=== PATIENT | female | born 1950 | race Caucasian/White ===

== ENCOUNTER 2022-10-27 23:22 | Inpatient (IN) ==
[~2022-10-27 23:22] MED LIST: RAPID SEQUENCE INDUCTION BAG ONE
[2022-10-27 23:58] LABS: Basophils # (auto) 0.08 K/uL (0-0.2); Basophils % (auto) 0.5 %; Eosinophils # (auto) 0.35 K/uL (0-0.50); Eosinophils % (auto) 2.3 %; Hematocrit (blood only) 40.5 % (37.0-47.0); Hemoglobin 13.4 g/dl (12.0-16.0); Immature Granulocytes % (auto) 0.6 %; Lymphocytes # (auto) 3.18 K/uL (1.2-3.4); Lymphocytes % (auto) 20.5 %; Mean Corpuscular Hemoglobin 29.1 pg (25.0-34.0); Mean Corpuscular Hgb Conc 33.1 g/dL (32.0-36.0); Mean Platelet Volume 10.5 fL (9.4-12.4); Monocytes # (auto) 1.07 K/uL (0.11-0.59); Monocytes % (auto) 6.9 %; Neutrophils # (auto) 10.76 K/uL (1.40-6.50); Neutrophils % (auto) 69.2 %; Platelet Count 315 K/uL (130-400); RDW Coefficient of Variation 15.9 % (11.5-14.5); White Blood Count 15.54 K/ul (4.8-10.8)
[2022-10-27 23:59] LABS: iSTAT Creatinine 0.6 mg/dl (0.6-1.3); iSTAT Hemoglobin 14.3 g/dl (12.0-16.0); iSTAT Ionized Calcium 1.15 mmol/l (1.12-1.32)
[2022-10-28] LABS: iSTAT Arterial Blood Gas HCO3 22 meg/L (19-24); iSTAT Arterial Blood Gas pCO2 33 mmHg (35-46); iSTAT Arterial Blood Gas pH 7.42 (7.35-7.45); iSTAT Arterial Blood Gas pO2 62 mmHg (80-95); iSTAT Carbon Dioxide 22 mmol/L (24-31); iSTAT Hematocrit 40 % (37-47); iSTAT Hemoglobin 13.6 g/dl (12.0-16.0); iSTAT Potassium 3.7 mmol/L (3.3-5.0); iSTAT Sodium 138 mmol/L (135-144)
--- NOTE | 2022-10-28 00:01 | Emergency Department Note ---
Impression & Plan Respiratory failure, IPF (idiopathic pulmonary fibrosis), Elevated lactic acid level ED Provider Note Provider: Cameron Liu MD DATE OF SERVICE: 10/27/2022 CHIEF COMPLAINT: Shortness of breath HISTORY OF PRESENT ILLNESS: Patient is a 72-year-old female with a significant history of idiopathic pulmonary fibrosis maintained on 4 L of oxygen at home, allergies, diabetes presenting here today via ambulance from home. Lives at home with symptoms well recently. Denies sick contacts. Evidently has been having some increasing respiratory issues over the last several days. No fevers reported however. Bit of a cough. Nonproductive. Feeling more short of breath. Worsened this evening. EMS reports patient was satting in the 50s with cyanosis in the extremities upon their arrival and seemed fatigued. Patient did not tolerate CPAP initiated by them. With oxygen mask over the patient's mentation improved and she states her breathing is feeling somewhat better. Received a DuoNeb/nebulizers as well as 125 mg Solu-Medrol in route. Patient denies any chest pain. Denies leg swelling. PAST MEDICAL HISTORY: As noted above MEDICATIONS: Reviewed with her home medications SOCIAL HISTORY: lives at home, non-smoker PHYSICAL EXAM: GENERAL: alert and oriented on stretcher appears slightly tachypneic Head: normocephalic and atraumatic EYES: No injection, discharge or icterus. NECK: Trachea midline ENT: Mucous membranes pink and moist. LUNGS: Airway patent. Some tachypnea and mild work of breathing. Lung sounds generally clear/coarse HEART: Regular rate and rhythm. No chest wall tenderness ABDOMEN: Soft and non-tender, without guarding or rebound. SKIN: Acyanotic, warm, dry, without rashes EXTREMITIES: Without swelling, tenderness or deformity NEUROLOGICAL: No focal deficits. No aphasia. No facial droop or slurred speech. EK bpm sinus tachycardia. Some respiratory artifact. No clear acute ST segment elevation or depression with QTc 405. CONTINUOUS CARDIAC MONITORING: was ordered and showed a heart rate of 90s-120s bpm in sinus tachycardia to normal sinus rhythm 1 view chest x-ray per my interpretation: Evidence of some diffuse airspace opacities seemingly more scarring than pneumonia. No evidence of significant pulmonary effusions or free air under the diaphragm. No significant cardiomegaly. Patient's laboratory studies and imaging reviewed. Differential includes Reactive airway disease, pneumonia, pneumothorax, COPD, CHF, infections, cardiac ischemia, pulmonary embolism, musculoskeletal, gastrointestinal, as well as other pathologies. IMPRESSION/MEDICAL DECISION MAKING: Patient with some mild cyanosis to the fingertips and distal toes but mentating appropriate upon arrival. Initial pulse ox in the extremities was in the 60s. Forehead probe placed and switched to 4 L nasal cannula oxygen with improvement. Again did not tolerate CPAP in route. Symptoms are improving some. Is still tachycardic. Chest x-ray with evidence of fibrosis and scarring we will complete a CTA to exclude PE and for further evaluation of lungs given the underlying IPF. No evidence of significant fluid overload. Denies chest pain. Low suspicion for acute ACS. No other significant infectious symptoms and lower suspicion for pneumonia blood cultures and lactate as well as procalcitonin sent. On 12 L nasal cannula oxygen the patient is having adequate oxygenation with a radial ABG returning with a normal pH of 7.4 and an O2 of 62. [id number] creat without evidence of any significant renal dysfunction. Blood work does return with an elevated lactate likely from malperfusion or hypoxia. Again no evidence of hypercarbia. Mild leukocytosis of 15.5 likely more reactive given her lack of other infectious symptoms. Not anemic. No evidence of hepatitis or troponin elevation. No BNP elevation. Procalcitonin pending. Negative respiratory viral panel/[employer]. Magnesium mildly low given some supplementation. Tolerating 12 L NC and fairly stable here. Given CT angiogram findings of significant pulmonary fibrosis making differentiation of underlying back arterial infection difficult, covered empirically with cefepime. Discussed with the patient she is going to plan to stay for further care here at the hospital. Later procalcitonin does return undetectably low and this lowers my suspicion for significant bacterial infection. We will avoid significant fluid hydration as a prevent fluid overload worsening things. DIAGNOSIS: Acute on chronic hypoxic respiratory failure, idiopathic pulmonary fibrosis DISPOSITION: Hospitalist will evaluate Patient was agreeable with this plan. Critical Care I have personally spent 36 minutes of critical care time in the direct manag ement of this patient. This includes bedside care, interpretation of diagnostic studies, and testing, discussion with consultants, patient, and family members, and other required patient management activities. These 36 minutes is in excess of all separately billable procedures. Past Med/Surg History Social History Smoking Status: Never smoker Feels Safe at Home: Yes Allergies Allergies Allergy/AdvReac Type Severity Reaction Status Date / Time lisinopril Allergy Cough Verified 10/28/22 00:10 Home Meds Home Medications Medication Instructions Recorded Confirmed atorvastatin 10 mg tablet 10 mg PO QAM 10/28/22 10/28/22 fluticasone 500 mcg-salmeterol 50 1 ea inhalation [facility]HS 10/28/22 10/28/22 mcg/dose blistr powdr for inhalation (Advair Diskus) losartan 50 mg tablet 100 mg PO QAM 10/28/22 10/28/22 metformin 500 mg tablet,extended 2,000 mg PO QPM 10/28/22 10/28/22 release 24 hr metoprolol succinate 25 mg 25 mg PO QAM 10/28/22 10/28/22 tablet,extended release 24 hr omeprazole 20 mg capsule,delayed 20 mg PO QAM 10/28/22 10/28/22 release pirfenidone 801 mg tablet 801 mg PO TID 10/28/22 10/28/22 Results & Data (ED) Vital Signs Vital Signs - 24 hr 10/27/22 23:43 10/27/22 23:31 10/27/22 23:48 Temperature Temperature Source Pulse Rate 129 H Pulse Rate [Forehead] Pulse Rate from SpO2 Sensor Pulse Rhythm [Forehead] Pulse Strength [Forehead] Respiratory Rate Respiratory Effort / Characteristics Respiratory Depth Blood Pressure Blood Pressure [Right Arm] Blood Pressure Mean Blood Pressure Mean [Right Arm] Blood Pressure Position [Right Arm] Pulse Oximetry 66 L Oxygen Delivery Method Nasal Cannula Room Air Oxygen Flow Rate 0 Sepsis Recent Fever Within 48 Hours Sepsis New/Unexplained Change in Mental Status Sepsis Action Taken by Nursing Oxygen Flow Rate - Titration 12 Pulse Oximetry Post Tiitration 98 10/27/22 23:45 10/27/22 23:51 10/27/22 23:53 Temperature 37.3 C 37.6 C H Temperature Source Oral Oral Pulse Rate 125 H 121 H Pulse Rate [Forehead] 97 H Pulse Rate from SpO2 Sensor 125 H Pulse Rhythm [Forehead] Regular Pulse Strength [Forehead] Normal Respiratory Rate 34 H 27 H 28 H Respiratory Effort / Characteristics Spontaneous Labored Short of Breath Respiratory Depth Blood Pressure 149/102 H 149/102 H Blood Pressure [Right Arm] 149/102 H Blood Pressure Mean 117 117 Blood Pressure Mean [Right Arm] 117 Blood Pressure Position [Right Arm] Sitting Pulse Oximetry 96 97 100 Oxygen Delivery Method Nasal Cannula High Flow Nasal Cannula High Flow Nasal Cannula Oxygen Flow Rate 12 Sepsis Recent Fever Within 48 Hours No Sepsis New/Unexplained Change in Mental Status No Sepsis Action Taken by Nursing No Action Required Oxygen Flow Rate - Titration Pulse Oximetry Post Tiitration 10/28/22 00:45 10/28/22 01:00 10/27/22 23:50 Temperature Temperature Source Pulse Rate 120 H Pulse Rate [Forehead] 108 H 103 H Pulse Rate from SpO2 Sensor 121 H Pulse Rhythm [Forehead] Regular Pulse Strength [Forehead] Normal Respiratory Rate 31 H 28 H 29 H Respiratory Effort / Characteristics Spontaneous Labored Respiratory Depth Shallow Blood Pressure Blood Pressure [Right Arm] 148/83 H 148/83 H Blood Pressure Mean Blood Pressure Mean [Right Arm] 104 104 Blood Pressure Position [Right Arm] Sitting Pulse Oximetry 95 100 99 Oxygen Delivery Method High Flow Nasal Cannula High Flow Nasal Cannula High Flow Nasal Cannula Oxygen Flow Rate 15 15 15 Sepsis Recent Fever Within 48 Hours Sepsis New/Unexplained Change in Mental Status Sepsis Action Taken by Nursing Oxygen Flow Rate - Titration Pulse Oximetry Post Tiitration 10/28/22 00:39 10/28/22 00:40 10/28/22 00:50 Temperature Temperature Source Pulse Rate 124 H 121 H 109 H Pulse Rate [Forehead] Pulse Rate from SpO2 Sensor 123 H 119 H 108 H Pulse Rhythm [Forehead] Pulse Strength [Forehead] Respiratory Rate 31 H 31 H 28 H Respiratory Effort / Characteristics Respiratory Depth Blood Pressure 148/83 H Blood Pressure [Right Arm] Blood Pressure Mean 104 Blood Pressure Mean [Right Arm] Blood Pressure Position [Right Arm] Pulse Oximetry 96 94 91 Oxygen Delivery Method High Flow Nasal Cannula High Flow Nasal Cannula High Flow Nasal Cannula Oxygen Flow Rate 15 15 15 Sepsis Recent Fever Within 48 Hours Sepsis New/Unexplained Change in Mental Status Sepsis Action Taken by Nursing Oxygen Flow Rate - Titration Pulse Oximetry Post Tiitration 10/28/22 01:00 Temperature Temperature Source Pulse Rate 102 H Pulse Rate [Forehead] Pulse Rate from SpO2 Sensor 103 H Pulse Rhythm [Forehead] Pulse Strength [Forehead] Respiratory Rate 31 H Respiratory Effort / Characteristics Respiratory Depth Blood Pressure 113/69 Blood Pressure [Right Arm] Blood Pressure Mean 83 Blood Pressure Mean [Right Arm] Blood Pressure Position [Right Arm] Pulse Oximetry 100 Oxygen Delivery Method High Flow Nasal Cannula Oxygen Flow Rate 15 Sepsis Recent Fever Within 48 Hours Sepsis New/Unexplained Change in Mental Status Sepsis Action Taken by Nursing Oxygen Flow Rate - Titration Pulse Oximetry Post Tiitration Laboratory Data 10/27/22 23:34 10/27/22 23:34 Lab Results 10/27/22 10/27/22 10/27/22 Range/Units 23:34 23:34 23:34 WBC 15.54 H (4.8-10.8) K/ul RBC 4.60 (4.20-5.40) M/uL Hgb 13.4 (12.0-16.0) g/dl POC Hgb (12.0-16.0) g/dl Hct 40.5 (37.0-47.0) % POC Hct (37-47) % MCV 88.0 (80.0-100.0) fL MCH 29.1 (25.0-34.0) pg MCHC 33.1 (32.0-36.0) g/dL RDW Std Deviation 51.0 H (36.4-46.3) fL RDW Coeff of Lynn 15.9 H (11.5-14.5) % Plt Count 315 (130-400) K/uL MPV 10.5 (9.4-12.4) fL Immature Gran % (Auto) 0.6 % Neut % (Auto) 69.2 % Lymph % (Auto) 20.5 % Cocke % (Auto) 6.9 % Eos % (Auto) 2.3 % Baso % (Auto) 0.5 % Neut # (Auto) 10.76 H (1.40-6.50) K/uL Lymph # (Auto) 3.18 (1.2-3.4) K/uL Cocke # (Auto) 1.07 H (0.11-0.59) K/uL Eos # (Auto) 0.35 (0-0.50) K/uL Baso # (Auto) 0.08 (0-0.2) K/uL Immature Gran # (Auto) 0.10 (0.01-0.20) K/uL PT 12.4 H (9.0-12.0) Seconds INR 1.1 (0.9-1.1) APTT 26.5 (21.0-31.0) Seconds PTT Ratio 0.9 POC pH (7.35-7.45) POC pCO2 (35-46) mmHg POC pO2 (80-95) mmHg POC HCO3 (19-24) louis/L POC Total CO2 (24-31) mmol/L POC Base Excess (-9-1.8) louis/L POC ABG O2 Sat (90-95) % POC Sodium (135-144) mmol/L Sodium 136 (136-145) mmol/L POC Potassium (3.3-5.0) mmol/L Potassium 4.0 (3.5-5.1) mmol/L POC Chloride (101-112) mmol/L Chloride 102 (98-107) mmol/L Carbon Dioxide 22 (21-32) mmol/L Anion Gap 12 H (3-11) POC Anion Gap (16-25) mmol/L POC BUN (7-18) mg/dl BUN 24 H (6-23) mg/dl Creatinine 0.70 (0.6-1.2) mg/dl POC Creatinine (0.6-1.3) mg/dl Est Cr Clr Drug Dosing 70.4 ml/min Est GFR ( Amer) 99.6 ml/min Est GFR (Non-Af Amer) 86.0 ml/min BUN/Creatinine Ratio 34.3 H (10-20) Glucose 174 H (70-99(Fasting)) mg/dl POC Glucose (other) (70-99) mg/dl Lactate (0.4-2.0) mmol/L Calcium 9.5 (8.6-10.3) mg/dl POC Ioniz Calcium Estephanie (1.12-1.32) mmol/l Magnesium 1.5 L (1.7-2.4) mg/dl Total Bilirubin 0.7 (0.2-1.0) mg/dl AST 31 (13-39) U/L ALT 15 (7-52) U/L Alkaline Phosphatase 72 (34-104) U/L Troponin I High Sens 11.1 (0-14) pg/ml B-Natriuretic Peptide (0-100) pg/ml Total Protein 8.0 (6.0-8.3) gm/dl Albumin 4.0 (3.4-5.0) gm/dl Globulin 4.0 (2.5-4.0) gm/dl Albumin/Globulin Ratio 1.0 (0.9-2) Procalcitonin (0-0.5) ng/ml Adenovirus (PCR) (NotDetected) B. pertussis DNA (PCR) (NotDetected) B.parapertussis DNA PCR (NotDetected) C. pneumoniae DNA (PCR) (NotDetected) Coronavirus OC43 (PCR) (NotDetected) Coronavirus HKU1 (PCR) (NotDetected) Coronavirus 229E (PCR) (NotDetected) SARS-CoV-2 (PCR) (NotDetected) Coronavirus NL63 (PCR) (NotDetected) Human Metapneumovir PCR (NotDetected) Influenza Type A (PCR) (NotDetected) Influenza Type B (PCR) (NotDetected) M. pneumoniae (PCR) (NotDetected) Parainfluenza 1 (PCR) (NotDetected) Parainfluenza 2 (PCR) (NotDetected) Parainfluenza 3 (PCR) (NotDetected) Parainfluenza 4 (PCR) (NotDetected) RSV (PCR) (NotDetected) Entero/Rhino (PCR) (NotDetected) 10/27/22 10/27/22 10/27/22 Range/Units 23:34 23:34 23:34 WBC (4.8-10.8) K/ul RBC (4.20-5.40) M/uL Hgb (12.0-16.0) g/dl POC Hgb (12.0-16.0) g/dl Hct (37.0-47.0) % POC Hct (37-47) % MCV (80.0-100.0) fL MCH (25.0-34.0) pg MCHC (32.0-36.0) g/dL RDW Std Deviation (36.4-46.3) fL RDW Coeff of Lynn (11.5-14.5) % Plt Count (130-400) K/uL MPV (9.4-12.4) fL Immature Gran % (Auto) % Neut % (Auto) % Lymph % (Auto) % Cocke % (Auto) % Eos % (Auto) % Baso % (Auto) % Neut # (Auto) (1.40-6.50) K/uL Lymph # (Auto) (1.2-3.4) K/uL Cocke # (Auto) (0.11-0.59) K/uL Eos # (Auto) (0-0.50) K/uL Baso # (Auto) (0-0.2) K/uL Immature Gran # (Auto) (0.01-0.20) K/uL PT (9.0-12.0) Seconds INR (0.9-1.1) APTT (21.0-31.0) Seconds PTT Ratio POC pH (7.35-7.45) POC pCO2 (35-46) mmHg POC pO2 (80-95) mmHg POC HCO3 (19-24) luois/L POC Total CO2 (24-31) mmol/L POC Base Excess (-9-1.8) louis/L POC ABG O2 Sat (90-95) % POC Sodium (135-144) mmol/L Sodium (136-145) mmol/L POC Potassium (3.3-5.0) mmol/L Potassium (3.5-5.1) mmol/L POC Chloride (101-112) mmol/L Chloride (98-107) mmol/L Carbon Dioxide (21-32) mmol/L Anion Gap (3-11) POC Anion Gap (16-25) mmol/L POC BUN (7-18) mg/dl BUN (6-23) mg/dl Creatinine (0.6-1.2) mg/dl POC Creatinine (0.6-1.3) mg/dl Est Cr Clr Drug Dosing ml/min Est GFR ( Amer) ml/min Est GFR (Non-Af Amer) ml/min BUN/Creatinine Ratio (10-20) Glucose (70-99(Fasting)) mg/dl POC Glucose (other) (70-99) mg/dl Lactate 3.7 H* (0.4-2.0) mmol/L Calcium (8.6-10.3) mg/dl POC Ioniz Calcium Estephanie (1.12-1.32) mmol/l Magnesium (1.7-2.4) mg/dl Total Bilirubin (0.2-1.0) mg/dl AST (13-39) U/L ALT (7-52) U/L Alkaline Phosphatase (34-104) U/L Troponin I High Sens (0-14) pg/ml B-Natriuretic Peptide 48 (0-100) pg/ml Total Protein (6.0-8.3) gm/dl Albumin (3.4-5.0) gm/dl Globulin (2.5-4.0) gm/dl Albumin/Globulin Ratio (0.9-2) Procalcitonin < 0.05 (0-0.5) ng/ml Adenovirus (PCR) (NotDetected) B. pertussis DNA (PCR) (NotDetected) B.parapertussis DNA PCR (NotDetected) C. pneumoniae DNA (PCR) (NotDetected) Coronavirus OC43 (PCR) (NotDetected) Coronavirus HKU1 (PCR) (NotDetected) Coronavirus 229E (PCR) (NotDetected) SARS-CoV-2 (PCR) (NotDetected) Coronavirus NL63 (PCR) (NotDetected) Human Metapneumovir PCR (NotDetected) Influenza Type A (PCR) (NotDetected) Influenza Type B (PCR) (NotDetected) M. pneumoniae (PCR) (NotDetected) Parainfluenza 1 (PCR) (NotDetected) Parainfluenza 2 (PCR) (NotDetected) Parainfluenza 3 (PCR) (NotDetected) Parainfluenza 4 (PCR) (NotDetected) RSV (PCR) (NotDetected) Entero/Rhino (PCR) (NotDetected) 10/27/22 10/27/22 10/27/22 Range/Units 23:43 23:45 23:46 WBC (4.8-10.8) K/ul RBC (4.20-5.40) M/uL Hgb (12.0-16.0) g/dl POC Hgb 13.6 14.3 (12.0-16.0) g/dl Hct (37.0-47.0) % POC Hct 40 42 (37-47) % MCV (80.0-100.0) fL MCH (25.0-34.0) pg MCHC (32.0-36.0) g/dL RDW Std Deviation (36.4-46.3) fL RDW Coeff of Lynn (11.5-14.5) % Plt Count (130-400) K/uL MPV (9.4-12.4) fL Immature Gran % (Auto) % Neut % (Auto) % Lymph % (Auto) % Cocke % (Auto) % Eos % (Auto) % Baso % (Auto) % Neut # (Auto) (1.40-6.50) K/uL Lymph # (Auto) (1.2-3.4) K/uL Cocke # (Auto) (0.11-0.59) K/uL Eos # (Auto) (0-0.50) K/uL Baso # (Auto) (0-0.2) K/uL Immature Gran # (Auto) (0.01-0.20) K/uL PT (9.0-12.0) Seconds INR (0.9-1.1) APTT (21.0-31.0) Seconds PTT Ratio POC pH 7.42 (7.35-7.45) POC pCO2 33 L (35-46) mmHg POC pO2 62 L (80-95) mmHg POC HCO3 22 (19-24) louis/L POC Total CO2 22 L 22 L (24-31) mmol/L POC Base Excess -3.0 (-9-1.8) louis/L POC ABG O2 Sat 92.0 (90-95) % POC Sodium 138 140 (135-144) mmol/L Sodium (136-145) mmol/L POC Potassium 3.7 4.0 (3.3-5.0) mmol/L Potassium (3.5-5.1) mmol/L POC Chloride 103 (101-112) mmol/L Chloride (98-107) mmol/L Carbon Dioxide (21-32) mmol/L Anion Gap (3-11) POC Anion Gap 19.0 (16-25) mmol/L POC BUN 26 H (7-18) mg/dl BUN (6-23) mg/dl Creatinine (0.6-1.2) mg/dl POC Creatinine 0.6 (0.6-1.3) mg/dl Est Cr Clr Drug Dosing ml/min Est GFR ( Amer) ml/min Est GFR (Non-Af Amer) ml/min BUN/Creatinine Ratio (10-20) Glucose (70-99(Fasting)) mg/dl POC Glucose (other) 184 H (70-99) mg/dl Lactate (0.4-2.0) mmol/L Calcium (8.6-10.3) mg/dl POC Ioniz Calcium Estephanie 1.15 (1.12-1.32) mmol/l Magnesium (1.7-2.4) mg/dl Total Bilirubin (0.2-1.0) mg/dl AST (13-39) U/L ALT (7-52) U/L Alkaline Phosphatase (34-104) U/L Troponin I High Sens (0-14) pg/ml B-Natriuretic Peptide (0-100) pg/ml Total Protein (6.0-8.3) gm/dl Albumin (3.4-5.0) gm/dl Globulin (2.5-4.0) gm/dl Albumin/Globulin Ratio (0.9-2) Procalcitonin (0-0.5) ng/ml Adenovirus (PCR) Not Detected (NotDetected) B. pertussis DNA (PCR) Not Detected (NotDetected) B.parapertussis DNA PCR Not Detected (NotDetected) C. pneumoniae DNA (PCR) Not Detected (NotDetected) Coronavirus OC43 (PCR) Not Detected (NotDetected) Coronavirus HKU1 (PCR) Not Detected (NotDetected) Coronavirus 229E (PCR) Not Detected (NotDetected) SARS-CoV-2 (PCR) Not Detected (NotDetected) Coronavirus NL63 (PCR) Not Detected (NotDetected) Human Metapneumovir PCR Not Detected (NotDetected) Influenza Type A (PCR) Not Detected (NotDetected) Influenza Type B (PCR) Not Detected (NotDetected) M. pneumoniae (PCR) Not Detected (NotDetected) Parainfluenza 1 (PCR) Not Detected (NotDetected) Parainfluenza 2 (PCR) Not Detected (NotDetected) Parainfluenza 3 (PCR) Not Detected (NotDetected) Parainfluenza 4 (PCR) Not Detected (NotDetected) RSV (PCR) Not Detected (NotDetected) Entero/Rhino (PCR) Not Detected (NotDetected) Administered Medications Magnesium Sulfate/Dextrose (Magnesium Sulfate / D5w) 1 gm in 100 mls @ 200 mls/hr IV Q30M [id number] Stop: 10/28/22 01:59 Last Admin: 10/28/22 00:55 Dose: 200 mls/hr Documented By: ASW Discontinued Medications Ioversol (Ioversol 350 Mg 125ml Prefilled Syringe) 118 ml IV ONCE ONE Stop: 10/28/22 00:36 Last Admin: 10/28/22 00:35 Dose: 118 ml Documented By: KSF Discharge Plan Visit Data Chief Complaint: Respiratory Distress Stated Complaint: RESPIRATORY DISTRESS ED Provider: Cameron Liu Discharge Problem: Respiratory failure, IPF (idiopathic pulmonary fibrosis), Elevated lactic acid level Patient Disposition: Being Evaluated by Hospitalist Forms Stand Alone Forms: My [facility] Prescriptions Prescriptions: No Action losartan 50 mg tablet 100 mg PO QAM atorvastatin 10 mg tablet 10 mg PO QAM fluticasone propion-salmeterol [Advair Diskus] 500-50 mcg/dose blister with device 1 ea INHALATION AMHS omeprazole 20 mg capsule,delayed release(DR/EC) 20 mg PO QAM metoprolol succinate 25 mg tablet extended release 24 hr 25 mg PO QAM metformin 500 mg tablet extended release 24 hr 2,000 mg PO QPM pirfenidone 801 mg tablet 801 mg PO TID Rx Instructions: take in morning at noon and before bedtime Referrals Referrals: PCP,NO [Physician] - Respiratory failure Qualifiers: Chronicity: acute on chronic Respiratory failure complication: hypoxia Qualified Code(s): J96.21 - Acute and chronic respiratory failure with hypoxia
[2022-10-28 00:31] LABS: BUN Creatinine Ratio 34.3 (10-20); Bilirubin,Total 0.7 mg/dl (0.2-1.0); Calcium 9.5 mg/dl (8.6-10.3); Creatinine Clr Calc Pharmacy 70.4 ml/min; Est GFR (African American) 99.6 ml/min; Magnesium 1.5 mg/dl (1.7-2.4)
[2022-10-28] MEDS ORDERED: IOVERSOL 350 MG 125mL Prefilled Syringe IV ONE (00:35)
[2022-10-28 00:37] LABS: Troponin I High Sensitivity 11.1 pg/ml (0-14)
[2022-10-28 00:46] LABS: INR 1.1 (0.9-1.1); Partial Thromboplastin Ratio 0.9; Partial Thromboplastin Time 26.5 Seconds (21.0-31.0); Prothrombin Time 12.4 Seconds (9.0-12.0)
[2022-10-28] MEDS: MAGNESIUM SULFATE / D5W 1 GM/100 ML BAG IV SCH ×2 (00:55→01:27)
[2022-10-28 00:56] LABS: Adenovirus PCR Not Detected (NotDetected); Bordetella parapertussis PCR Not Detected (NotDetected); Bordetella pertussis PCR Not Detected (NotDetected); Chlamydia pneumoniae PCR Not Detected (NotDetected); Coronavirus 229E PCR Not Detected (NotDetected); Coronavirus CoV-2 (COVID19)PCR Not Detected (NotDetected); Coronavirus HKU1 PCR Not Detected (NotDetected); Coronavirus NL63 PCR Not Detected (NotDetected); Coronavirus OC43PCR Not Detected (NotDetected); Human Metapneumovirus PCR Not Detected (NotDetected); Influenza A PCR Not Detected (NotDetected); Influenza B PCR Not Detected (NotDetected); Mycoplasma pneumoniae PCR Not Detected (NotDetected); Parainfluenza Virus 1 PCR Not Detected (NotDetected); Parainfluenza Virus 2 PCR Not Detected (NotDetected); Parainfluenza Virus 3 PCR Not Detected (NotDetected); Parainfluenza Virus 4 PCR Not Detected (NotDetected); Respiratory Syncytial VirusPCR Not Detected (NotDetected); Rhinovirus/Enterovirus PCR Not Detected (NotDetected)
[2022-10-28] MEDS ORDERED: CEFEPIME 2,000 MG/20 ML VIAL IV STA (00:56)
--- NOTE | 2022-10-28 03:17 | History & Physical Report ---
Date of Service October 28, 2022 Assessment & Plan (1) Respiratory distress: Plan: 72-year-old female with past med significant for type 2 diabetes, chronic respiratory failure with hypoxia on home oxygen 6 L all the time, chronic idiopathic pulmonary fibrosis, severe persistent asthma, hypertension, GERD, osteoporosis, seasonal allergies presents with respiratory distress Respiratory distress Acute on chronic respiratory failure At home she is on 6 L oxygen currently on 9lts high flow History of pulmonary fibrosis on pirfenidone Possible pulmonary fibrosis flare Recently finished prednisone taper Currently saturating okay on high flow but gets tired when talking We will place on IV Solu-Medrol 40 mg 3 times daily and nebs [id number] and as needed Respiratory bio fire negative Procalcitonin negative Has leukocytosis but but recently was on steroids ABG okay We will follow CTA chest Consult pulmonary in a.m. Monitoring telemetry Elevated lactic acid mostly from hypoxia will monitor. Hypertension Continue losartan and metoprolol We will monitor Diabetes Hold metformin Insulin sliding scale We will follow blood sugars while on steroids. and HbA1c levels glycemic pharmacy consult. Hyperlipidemia on statin GERD on omeprazole DVT prophylaxis Lovenox Disposition telemetry floor Full code History of Present Illness Chief Complaint: Respiratory distress Primary Care Provider: Rizwana Antunez MD 72-year-old female with past med significant for type 2 diabetes, chronic respiratory failure with hypoxia on home oxygen 6 L all the time, chronic idiopathic pulmonary fibrosis, severe persistent asthma, hypertension, GERD, osteoporosis, seasonal allergies presents with respiratory distress. Patient says since last 1 week to 10 days getting more short of breath. Today walking 4 steps making her oxygen saturation go down when she decided to call EMS. For EMS she seemed saturating only 50 to 60% and she did not tolerate CPAP and was placed on 100% nonrebreather mask and was brought to the ER. In route she received Solu-Medrol. In the ER she was placed on high flow and she is saturating fine currently. Getting easily tired while talking. Patient states recently had a prednisone taper and completed the course last Saturday. Patient states when she came to the end of the taper she started to feel short of breath. Denies any fever. Has chronic cough. No fevers. No chest pain. Has some headache. No blurred visions. No earache or runny nose or sore throat. Appetite is okay. No dysphagia. No nausea. No abdominal pain. No swelling in the legs. Normal bowel and bladder movements. Past medical history as mentioned above Past surgical history cataract surgery, laparoscopic colectomy, Social history . No smoking, alcohol rare. Family history Sister had breast cancer, diabetes, hypertension, osteoporosis Brother had diabetes. Brother had prostate cancer. Father had prostate cancer. Mother had leukemia Allergies Allergy/AdvReac Type Severity Reaction Status Date / Time lisinopril Allergy Cough Verified 10/28/22 00:10 Home Medications Medication Instructions Recorded Confirmed Type atorvastatin 10 mg tablet 10 mg PO QAM 10/28/22 10/28/22 History fluticasone 500 mcg-salmeterol 50 1 ea inhalation [facility] 10/28/22 10/28/22 History mcg/dose blistr powdr for inhalation (Advair Diskus) losartan 50 mg tablet 50 mg PO QAM 10/28/22 10/28/22 History metformin 500 mg tablet,extended 2,000 mg PO QPM 10/28/22 10/28/22 History release 24 hr metoprolol succinate 25 mg 25 mg PO QAM 10/28/22 10/28/22 History tablet,extended release 24 hr omeprazole 20 mg capsule,delayed 20 mg PO QAM 10/28/22 10/28/22 History release pirfenidone 801 mg tablet 801 mg PO TID 10/28/22 10/28/22 History Past Med/Surg History Social History Smoking Status: Never smoker Second Hand Exposure: No; Do You Dip or Chew Tobacco: No; Tobacco Cessation Education Requested by Patient: No Hx Alcohol Use: Yes Alcohol type: beer, wine and hard liquor Hx Substance Use: No Communication Ability: Effective Maxillofacial Pathology Required: No Beliefs That Will Affect Care: None Current Living Situation: Spouse Other Information That Helps Us Care for You: No Feels Safe at Home: Yes Safety Concerns: Feels Safe At This Time Assistive Devices: Oxygen - Continuous Review of Systems Review of Systems: All systems reviewed & are unremarkable except as noted in HPI & below Physical Exam Physical Exam: General- Not in distress Head- atraumatic Eyes- PERRL. ENT- oropharynx clear Neck- supple, no JVD, . Lungs- clear to auscultation no wheezing, mild bibasilar cackles Heart- regular rhythm; no murmur, no gallop, Abdomen- normal bowel sounds, soft, nontender, no distension. Extremities- no pretibial edema, no erythema seen. Neuro- alert, oriented x 3; PERRL, no facial palsy; no dysarthria; non focal. Skin- warm & dry Results & Data Results & Data Vital Signs (Past 12 Hours) Vital Signs Temp Pulse Pulse Resp BP BP Pulse Ox 10/28/22 02:30 78 22 99 10/28/22 02:00 91 H 24 93 10/28/22 01:30 97 H 31 H 119/72 100 10/28/22 01:00 113/69 10/28/22 01:00 102 H 31 H 113/69 100 10/28/22 00:50 109 H 28 H 91 10/28/22 00:40 121 H 31 H 94 10/28/22 00:39 124 H 31 H 148/83 H 96 10/27/22 23:50 120 H 29 H 99 10/28/22 01:00 103 H 28 H 148/83 H 100 10/28/22 00:45 108 H 31 H 148/83 H 95 10/27/22 23:53 37.6 C H 121 H 28 H 149/102 H 100 10/27/22 23:51 37.3 C 97 H 27 H 149/102 H 97 10/27/22 23:45 125 H 34 H 149/102 H 96 10/27/22 23:48 66 L 10/27/22 23:31 129 H 10/27/22 23:43 O2 Del Method O2 Flow Rate 10/28/22 02:30 Room Air 10/28/22 02:00 High Flow Nasal Cannula 15 10/28/22 01:30 High Flow Nasal Cannula 15 10/28/22 01:00 10/28/22 01:00 High Flow Nasal Cannula 15 10/28/22 00:50 High Flow Nasal Cannula 15 10/28/22 00:40 High Flow Nasal Cannula 15 10/28/22 00:39 High Flow Nasal Cannula 15 10/27/22 23:50 High Flow Nasal Cannula 15 10/28/22 01:00 High Flow Nasal Cannula 15 10/28/22 00:45 High Flow Nasal Cannula 15 10/27/22 23:53 High Flow Nasal Cannula 10/27/22 23:51 High Flow Nasal Cannula 10/27/22 23:45 Nasal Cannula 12 10/27/22 23:48 Room Air 0 10/27/22 23:31 10/27/22 23:43 Nasal Cannula ECG Additional Comments: ECG sinus tachycardia 128. Possible left atrial enlargement. Left ventricular hypertrophy . Code Status & VTE Plan VTE Prophylaxis Plan VTE Prophylaxis will be ordered: Yes
--- NOTE | 2022-10-28 04:08 | CT Scan Report ---
Exam(s): CTA CHEST IV Amt: 118 cc's optiray 350 EXAM: CT Angiography Chest With Intravenous Contrast CLINICAL HISTORY: Hypoxia. TECHNIQUE: Axial computed tomographic angiography images of the chest with intravenous contrast. CTDI is 40.61 mGy and DLP is 1098.44 mGy-cm. Automated exposure control was utilized for the study. A dose lowering technique was utilized adhering to the principles of ALARA. MIP reconstructed images were created and reviewed. COMPARISON: No relevant prior studies available. FINDINGS: Pulmonary arteries: Unremarkable. No pulmonary embolus. Aorta: No acute findings. No aortic aneurysm or dissection. Great vessels of aortic arch: Aberrant right subclavian artery. Lungs: Diffuse bilateral airspace opacities may represent atypical infection and/or pulmonary edema. Emphysema. Pleural space: Unremarkable. No significant effusion. No pneumothorax. Heart: Unremarkable. No cardiomegaly. No significant pericardial effusion. No evidence of RV dysfunction. Mediastinum: There is a 1.5 cm paratracheal lymph noted in addition to mediastinal lymph nodes which measure up to 2 cm, and hilar lymphadenopathy measures up to 1.7 cm. Bones/joints: There are degenerative changes of the spine. No acute fracture. No dislocation. Soft tissues: Unremarkable. Lymph nodes: Unremarkable. No enlarged lymph nodes. IMPRESSION: 1. No pulmonary embolus. 2. Diffuse bilateral airspace opacities may represent atypical infection and/or pulmonary edema. 3. There is a 1.5 cm paratracheal lymph noted in addition to mediastinal lymph nodes which measure up to 2 cm, and hilar lymphadenopathy measures up to 1.7 cm. These may be infectious, inflammatory neoplastic. 4. Aberrant right subclavian artery. 5. Emphysema. Electronically signed by: Coty Brito MD 10/28/22 04:07 AM
[2022-10-28] MEDS ORDERED: ALBUT/IPRATROP 3MG/0.5MG NEB 3 ML VIAL NEB PRN (04:51)
[2022-10-28] MEDS ORDERED: CARBOHYDRATES FOR HYPOGLYCEMIA PO PRN (04:51)
[2022-10-28] MEDS ORDERED: GLUCAGON FOR INJ 1 MG VIAL SQ PRN (04:51)
[2022-10-28] MEDS ORDERED: NITROGLYCERIN SL 0.4 MG/TAB TAB SL PRN (04:51)
[2022-10-28] MEDS ORDERED: POLYETHYLENE (MIRALAX) 17 GM PACK PO PRN (04:51)
[2022-10-28] MEDS ORDERED: DEXTROSE 50% 50 ML SYRINGE IV PRN (04:51)
[2022-10-28] MEDS ORDERED: GLUCOSE 40% GEL 15 GM TUBE PO PRN (04:51)
[2022-10-28] MEDS ORDERED: GLUCOSE 10 TAB/TUBE PO PRN (04:51)
[2022-10-28] MEDS ORDERED: ACETAMINOPHEN 325 MG TAB PO PRN (04:51)
[2022-10-28 06:14] LABS: Hematocrit (blood only) 36.5 % (37.0-47.0); Hemoglobin 11.8 g/dl (12.0-16.0); Mean Corpuscular Hemoglobin 28.4 pg (25.0-34.0); Mean Corpuscular Hgb Conc 32.3 g/dL (32.0-36.0); Mean Platelet Volume 10.2 fL (9.4-12.4); Platelet Count 256 K/uL (130-400); RDW Coefficient of Variation 15.8 % (11.5-14.5); RDW Standard Deviation 51.1 fL (36.4-46.3); Red Blood Count 4.15 M/uL (4.20-5.40); White Blood Count 11.02 K/ul (4.8-10.8)
[2022-10-28 06:31] LABS: BUN Creatinine Ratio 33.3 (10-20); Calcium 9.2 mg/dl (8.6-10.3); Creatinine Clr Calc Pharmacy 65.7 ml/min; Est GFR (African American) 91.7 ml/min; Est GFR (Non-African American) 79.1 ml/min; Magnesium 2.3 mg/dl (1.7-2.4); Potassium 4.2 mmol/L (3.5-5.1)
[2022-10-28] MEDS ORDERED: PHARMACY GLYCEMIC MGMT CONSULT PRN (06:34)
[2022-10-28 06:37] LABS: Basophils # (auto) 0.04 K/uL (0-0.2); Basophils % (auto) 0.4 %; Immature Granulocytes # (auto) 0.05 K/uL (0.01-0.20); Immature Granulocytes % (auto) 0.5 %; Lymphocytes # (auto) 0.65 K/uL (1.2-3.4); Lymphocytes % (auto) 5.9 %; Monocytes % (auto) 0.9 %; Neutrophils # (auto) 10.18 K/uL (1.40-6.50); Neutrophils % (auto) 92.3 %; RBC Morphology Unremarkable
[2022-10-28] MEDS ORDERED: INSULIN HUMAN REGULAR PER UNIT 5 UNITS in SYRINGE 4.95 ML IV ONE (06:45)
[2022-10-28] MEDS ORDERED: LANTUS PER UNIT CHARGE SC STA (06:47)
[2022-10-28] MEDS: ENOXAPARIN INJ 40 MG/0.4 ML SYR SQ SCH (07:28)
[2022-10-28] MEDS: ALBUT/IPRATROP 3MG/0.5MG NEB 3 ML VIAL NEB SCH ×4 (07:34→19:52)
--- NOTE | 2022-10-28 08:18 | XRay Report ---
XR chest 1V portable HISTORY: Dyspnea COMPARISON: None. FINDINGS: No pneumothorax. No pleural effusions. There are low lung volumes. The heart is mildly enla rged. There is diffuse interstitial thickening with patchy densities within the periphery the right u pper lobe and left lung base. No evidence for pulmonary edema. IMPRESSION: Low lung volumes with diffuse interstitial thickening and patchy densities within the periphery of th e right upper lobe and left lung base. This could be due to chronic fibrotic change. A superimposed p neumonia would be difficult to exclude. ACT 112: Negative or not required by law. Electronically signed by: Ricardo Talamantes M.D. 10/28/2022 8:17 AM
--- NOTE | 2022-10-28 08:35 | Pulmonary Consultation ---
Date of Consultation October 28, 2022 Assessment & Plan (1) Interstitial lung disease: (2) Respiratory failure: Chronicity: acute on chronic Respiratory failure complication: hypoxia Qualified Code(s): J96.21 - Acute and chronic respiratory failure with hypoxia (3) Hypoxemic respiratory failure, chronic: Plan Impression: 72-year-old female with history of interstitial lung disease. She was advised that she has IPF however she was never biopsied, we do not have access to her serological evaluation, and her CT scan is not typical. She does have evidence of subpleural fibrosis but it extends up to the apices and there is a significant component of groundglass opacities. In addition, the patient was treated with steroids about a month ago with clinical response which would be unusual for IPF/UIP. Recommendations: 1. Diffuse parenchymal lung disease/interstitial lung disease: Ideally would like to correlate with prior imaging studies to see whether or not there is been any significant progression. PJP superimposed on interstitial lung disease may have a similar appearance however clinical scenario and the risk of bronchoscopy in this patient with high oxygen requirement and prior response to steroids, I think proceeding with steroids at this point time is reasonable. Would place her on prednisone 40 mg a day and have her follow-up with her outpatient non destructive testing engineer at [facility] to see whether or not additional steroid sparing immunosuppressive agents such as mycophenolate or azathioprine might be appropriate. I do not think bronchoscopy or biopsy at this point in time would yield much. I do not see evidence of infection and would hold on antibiotics for now. 2. Hypoxemic respiratory failure: The patient appears to be at her baseline 6 L/min. 3. Exercise and weight loss recommended. 4. Patient should be ambulated to ensure an appropriate oxygen prescription. If she can ambulate around the halls, she may be appropriate to discharge home with outpatient pulmonary follow-up with [facility]. 5. Had a long discussion with the patient regarding CODE STATUS. She does not want her family to have to make decisions for her in the event she becomes incapacitated. She has a living will. Given the advanced nature of her lung disease, I advised her that mechanical ventilation, CPR, and defibrillation would not likely improve the quality or quantity of her life. She states she does not want that and is comfortable changing her CODE STATUS to DO NOT RESUSCITATE. We will continue to follow for clinical response. Feel free to contact us with questions or concerns History of Present Illness Attending Physician: Hilton Ibanez MD History of Present Illness Asked by hospitalist to evaluate and assist in management of this patient with chronic hypoxemic respiratory failure secondary to interstitial lung disease. History is obtained from discussion with the patient as well as review the electronic medical record. The patient is a 72-year-old female with advanced ILD. She was initially diagno sed about 5 years ago in [place]. She never had a biopsy performed. She was given a diagnosis of IPF and placed on pirfenidone. We do not have copies of that evaluation to review. She moved to [place] to be at a lower altitude. She was initially on oxygen only at night but over the last year or 2 has needed oxygen 24/7 and is now up to 6 L/min at baseline. She is established with the [facility] pulmonary group. She states that back in September she was placed on a prednisone course by her non destructive testing engineer. She states this was very beneficial with regards to her breathing. She noted that the symptoms as she tapered the steroids tended to recur including significant shortness of breath to the point that she could only walk for about 10 feet before becoming winded and having to stop. She did complete pulmonary rehab care amount in the back in March. Patient states that last evening she again experienced shortness of breath with oxygen saturations down into the 60s despite supplemental oxygen. This prompted a call to 911 and evaluation in the emergency room. She does not report fevers chills night sweats or other constitutional symptoms. She has not had any ill contacts. Patient does not report a exposure history. No birds. No hot tubs. No other inhalational or occupational exposures. Her BioFire and procalcitonin were negative. She was given Solu-Medrol 40 mg 3 times a day in the emergency room and continued on the floor and states that she feels better currently. Allergies Allergy/AdvReac Type Severity Reaction Status Date / Time lisinopril Allergy Cough Verified 10/28/22 00:10 Home Medications Medication Instructions Recorded Confirmed Type atorvastatin 10 mg tablet 10 mg PO QAM 10/28/22 10/28/22 History fluticasone 500 mcg-salmeterol 50 1 ea inhalation [facility] 10/28/22 10/28/22 History mcg/dose blistr powdr for inhalation (Advair Diskus) losartan 50 mg tablet 50 mg PO QAM 10/28/22 10/28/22 History metformin 500 mg tablet,extended 2,000 mg PO QPM 10/28/22 10/28/22 History release 24 hr metoprolol succinate 25 mg 25 mg PO QAM 10/28/22 10/28/22 History tablet,extended release 24 hr omeprazole 20 mg capsule,delayed 20 mg PO QAM 10/28/22 10/28/22 History release pirfenidone 801 mg tablet 801 mg PO TID 10/28/22 10/28/22 History Patient History Social History Smoking Status: Never smoker Second Hand Exposure: No; Do You Dip or Chew Tobacco: No; Tobacco Cessation Education Requested by Patient: No Hx Alcohol Use: Yes Alcohol type: beer, wine and hard liquor Hx Substance Use: No Communication Ability: Effective Glass Maker Required: No Beliefs That Will Affect Care: None Current Living Situation: Spouse Other Information That Helps Us Care for You: No Feels Safe at Home: Yes Safety Concerns: Feels Safe At This Time Assistive Devices: Oxygen - Continuous Review of Systems Review of Systems: Please refer to admission H&P. No additions or deletions Physical Exam Constitutional: WD/WN, vitals as above Neck: trachea midline, no thyromegaly Respiratory: no respiratory distress, no labored breathing, no cough and not tachypneic Auscultation: + crackles Cardiovascular: RRR, no murmur, no edema Gastrointestinal (Abdomen): normal bowel sounds, soft, nontender, no hepatosplenomegaly Musculoskeletal: Extremities: extremities normal to inspection Skin: no rashes, warm and dry Neurologic: Nonfocal exam Lymphatic: no cervical lymphadenopathy Results & Data Results & Data Vital Signs (Past 12 Hours) Vital Signs Temp Pulse Pulse Resp BP BP Pulse Ox 10/28/22 07:21 36.3 C L 70 18 123/81 96 10/28/22 07:37 77 20 92 10/28/22 05:00 10/28/22 05:00 95 H 10/28/22 04:51 96 H 131/74 90 10/28/22 04:27 10/28/22 03:00 62 16 102/58 L 98 10/28/22 03:35 69 10/28/22 02:30 78 22 99 10/28/22 02:00 91 H 24 93 10/28/22 01:30 97 H 31 H 119/72 100 10/28/22 01:00 113/69 10/28/22 01:00 102 H 31 H 113/69 100 10/28/22 00:50 109 H 28 H 91 10/28/22 00:40 121 H 31 H 94 10/28/22 00:39 124 H 31 H 148/83 H 96 10/27/22 23:50 120 H 29 H 99 10/28/22 01:00 103 H 28 H 148/83 H 100 10/28/22 00:45 108 H 31 H 148/83 H 95 10/27/22 23:53 37.6 C H 121 H 28 H 149/102 H 100 10/27/22 23:51 37.3 C 97 H 27 H 149/102 H 97 10/27/22 23:45 125 H 34 H 149/102 H 96 10/27/22 23:48 66 L 10/27/22 23:31 129 H 10/27/22 23:43 O2 Del Method O2 Flow Rate 10/28/22 07:21 High Flow Nasal Cannula 6 10/28/22 07:37 Nasal Cannula 6 10/28/22 05:00 High Flow Nasal Cannula 9 10/28/22 05:00 10/28/22 04:51 High Flow Nasal Cannula 10 10/28/22 04:27 High Flow Nasal Cannula 10/28/22 03:00 High Flow Nasal Cannula 10/28/22 03:35 10/28/22 02:30 Room Air 10/28/22 02:00 High Flow Nasal Cannula 15 10/28/22 01:30 High Flow Nasal Cannula 15 10/28/22 01:00 10/28/22 01:00 High Flow Nasal Cannula 15 10/28/22 00:50 High Flow Nasal Cannula 15 10/28/22 00:40 High Flow Nasal Cannula 15 10/28/22 00:39 High Flow Nasal Cannula 15 10/27/22 23:50 High Flow Nasal Cannula 15 10/28/22 01:00 High Flow Nasal Cannula 15 10/28/22 00:45 High Flow Nasal Cannula 15 10/27/22 23:53 High Flow Nasal Cannula 10/27/22 23:51 High Flow Nasal Cannula 10/27/22 23:45 Nasal Cannula 12 10/27/22 23:48 Room Air 0 10/27/22 23:31 10/27/22 23:43 Nasal Cannula Critical Care Results & Data Vital Signs (Past 12 Hours) Vital Signs Temp Pulse Pulse Resp BP BP Pulse Ox 10/28/22 07:21 36.3 C L 70 18 123/81 96 10/28/22 07:37 77 20 92 10/28/22 05:00 10/28/22 05:00 95 H 10/28/22 04:51 96 H 131/74 90 10/28/22 04:27 10/28/22 03:00 62 16 102/58 L 98 10/28/22 03:35 69 10/28/22 02:30 78 22 99 10/28/22 02:00 91 H 24 93 10/28/22 01:30 97 H 31 H 119/72 100 10/28/22 01:00 113/69 10/28/22 01:00 102 H 31 H 113/69 100 10/28/22 00:50 109 H 28 H 91 10/28/22 00:40 121 H 31 H 94 10/28/22 00:39 124 H 31 H 148/83 H 96 10/27/22 23:50 120 H 29 H 99 10/28/22 01:00 103 H 28 H 148/83 H 100 10/28/22 00:45 108 H 31 H 148/83 H 95 10/27/22 23:53 37.6 C H 121 H 28 H 149/102 H 100 10/27/22 23:51 37.3 C 97 H 27 H 149/102 H 97 10/27/22 23:45 125 H 34 H 149/102 H 96 10/27/22 23:48 66 L 10/27/22 23:31 129 H 10/27/22 23:43 O2 Del Method O2 Flow Rate 10/28/22 07:21 High Flow Nasal Cannula 6 10/28/22 07:37 Nasal Cannula 6 10/28/22 05:00 High Flow Nasal Cannula 9 10/28/22 05:00 10/28/22 04:51 High Flow Nasal Cannula 10 10/28/22 04:27 High Flow Nasal Cannula 10/28/22 03:00 High Flow Nasal Cannula 10/28/22 03:35 10/28/22 02:30 Room Air 10/28/22 02:00 High Flow Nasal Cannula 15 10/28/22 01:30 High Flow Nasal Cannula 15 10/28/22 01:00 10/28/22 01:00 High Flow Nasal Cannula 15 10/28/22 00:50 High Flow Nasal Cannula 15 10/28/22 00:40 High Flow Nasal Cannula 15 10/28/22 00:39 High Flow Nasal Cannula 15 10/27/22 23:50 High Flow Nasal Cannula 15 10/28/22 01:00 High Flow Nasal Cannula 15 10/28/22 00:45 High Flow Nasal Cannula 15 10/27/22 23:53 High Flow Nasal Cannula 10/27/22 23:51 High Flow Nasal Cannula 10/27/22 23:45 Nasal Cannula 12 10/27/22 23:48 Room Air 0 10/27/22 23:31 10/27/22 23:43 Nasal Cannula Lab & Micro Results (Past 24 Hours) RBC 4.15 M/uL (4.20-5.40) L 10/28/22 WBC 11.02 K/ul (4.8-10.8) H 10/28/22 Hgb 11.8 g/dl (12.0-16.0) L 10/28/22 Hct 36.5 % (37.0-47.0) L 10/28/22 MCV 88.0 fL (80.0-100.0) 10/28/22 MCH 28.4 pg (25.0-34.0) 10/28/22 MCHC 32.3 g/dL (32.0-36.0) 10/28/22 RDW Standard Deviation 51.1 fL (36.4-46.3) H 10/28/22 RDW Coefficient of Variation 15.8 % (11.5-14.5) H 10/28/22 Plt Count 256 K/uL (130-400) 10/28/22 MPV 10.2 fL (9.4-12.4) 10/28/22 Neutrophils (%) (Auto) 92.3 % 10/28/22 Lymphocytes (%) (Auto) 5.9 % 10/28/22 Monocytes # (Auto) 0.10 K/uL (0.11-0.59) L 10/28/22 Eosinophils # (Auto) 0.00 K/uL (0-0.50) 10/28/22 Immature Granulocyte % (Auto) 0.5 % 10/28/22 Neutrophils # (Auto) 10.18 K/uL (1.40-6.50) H 10/28/22 Lymphocytes # (Auto) 0.65 K/uL (1.2-3.4) L 10/28/22 Monocytes # (Auto) 0.10 K/uL (0.11-0.59) L 10/28/22 Eosinophils # (Auto) 0.00 K/uL (0-0.50) 10/28/22 Basophils # (Auto) 0.04 K/uL (0-0.2) 10/28/22 Immature Granulocyte # (Auto) 0.05 K/uL (0.01-0.20) 3 Red Blood Cell Morphology Unremarkable 10/28/22 Na 135 mmol/L (136-145) L 10/28/22 K 4.2 mmol/L (3.5-5.1) 10/28/22 Cl 103 mmol/L (98-107) 10/28/22 CO2 22 mmol/L (21-32) 10/28/22 Anion Gap 10 (3-11) 10/28/22 BUN 25 mg/dl (6-23) H 10/28/22 Creatinine 0.75 mg/dl (0.6-1.2) 10/28/22 Estimated GFR ( Amer) 91.7 ml/min 10/28/22 Estimated GFR (Non-Af Amer) 79.1 ml/min 10/28/22 BUN/Creatinine Ratio 33.3 (10-20) H 10/28/22 Glu 387 mg/dl (70-99(Fasting)) H* 10/28/22 Ca 9.2 mg/dl (8.6-10.3) 10/28/22 Total Bilirubin 0.7 mg/dl (0.2-1.0) 10/27/22 AST 31 U/L (13-39) 10/27/22 ALT 15 U/L (7-52) 10/27/22 Alkaline Phosphatase 72 U/L (34-104) 10/27/22 TP 8.0 gm/dl (6.0-8.3) 10/27/22 Albumin 4.0 gm/dl (3.4-5.0) 10/27/22 Globulin 4.0 gm/dl (2.5-4.0) 10/27/22 Albumin/Globulin Ratio 1.0 (0.9-2) 10/27/22 Mg 2.3 mg/dl (1.7-2.4) 10/28/22 05:25 Calcium Level 9.2 mg/dl (8.6-10.3) 10/28/22 05:25 Prothromb Time International Ratio 1.1 (0.9-1.1) 10/27/22 23:3 4 Diagnostic Findings (Past 24 Hours) Chest X-Ray 10/27/22 23:31 XR chest 1V portable HISTORY: Dyspnea COMPARISON: None. FINDINGS: No pneumothorax. No pleural effusions. There are low lung volumes. The heart is mildly enlarged. There is diffuse interstitial thickening with patchy densities within the periphery the right upper lobe and left lung base. No evidence for pulmonary edema. IMPRESSION: Low lung volumes with diffuse interstitial thickening and patchy densities within the periphery of the right upper lobe and left lung base. This could be due to chronic fibrotic change. A superimposed pneumonia would be difficult to exclude. ACT 112: Negative or not required by law. Electronically signed by: Ricardo Talamantes M.D. 10/28/2022 8:17 AM Chest CTA 10/27/22 23:51 Exam(s): CTA CHEST IV Amt: 118 cc's optiray 350 EXAM: CT Angiography Chest With Intravenous Contrast CLINICAL HISTORY: Hypoxia. TECHNIQUE: Axial computed tomographic angiography images of the chest with intravenous contrast. CTDI is 40.61 mGy and DLP is 1098.44 mGy-cm. Automated exposure control was utilized for the study. A dose lowering technique was utilized adhering to the principles of ALARA. MIP reconstructed images were created and reviewed. COMPARISON: No relevant prior studies available. FINDINGS: Pulmonary arteries: Unremarkable. No pulmonary embolus. Aorta: No acute findings. No aortic aneurysm or dissection. Great vessels of aortic arch: Aberrant right subclavian artery. Lungs: Diffuse bilateral airspace opacities may represent atypical infection and/or pulmonary edema. Emphysema. Pleural space: Unremarkable. No significant effusion. No pneumothorax. Heart: Unremarkable. No cardiomegaly. No significant pericardial effusion. No evidence of RV dysfunction. Mediastinum: There is a 1.5 cm paratracheal lymph noted in addition to mediastinal lymph nodes which measure up to 2 cm, and hilar lymphadenopathy measures up to 1.7 cm. Bones/joints: There are degenerative changes of the spine. No acute fracture. No dislocation. Soft tissues: Unremarkable. Lymph nodes: Unremarkable. No enlarged lymph nodes. IMPRESSION: 1. No pulmonary embolus. 2. Diffuse bilateral airspace opacities may represent atypical infection and/or pulmonary edema. 3. There is a 1.5 cm paratracheal lymph noted in addition to mediastinal lymph nodes which measure up to 2 cm, and hilar lymphadenopathy measures up to 1.7 cm. These may be infectious, inflammatory neoplastic. 4. Aberrant right subclavian artery. 5. Emphysema. Electronically signed by: Coty Brito MD 10/28/22 04:07 AM I & O Totals 24 Hours 10/27/22 10/28/22 10/29/22 06:59 06:59 06:59 Intake Total 200 / 200 Balance 200 / 200 Cumulative 10/27/22 23:14 thru 10/28/22 04:51 Intake Total 200 Balance 200 RT Ventilator Mngmt (Last Documented) Ventilator Ordered Settings Respiratory Rate 20 10/28/22 07:37 Ventilator - PT Measurements Respiratory Rate 20 PG Care Time/CCT Total # of Minutes Spent Total Time Spent with Patient: Total time spent is greater than 50% in coordination of care (as documented) at patient's floor/unit and/or counseling patient: Coding Level of Care Code 35383 INT INP/OBS CARE 3/75MIN Diagnoses Interstitial lung disease J84.9 Respiratory failure J96.21 Chronicity: acute on chronic Respiratory failure complication: hypoxia Hypoxemic respiratory failure, chronic J96.11
[2022-10-28] MEDS ORDERED: methylPREDNISolone 40 MG in SYRINGE 0 ML IV SCH (09:00)
[2022-10-28] MEDS: INSULIN ASPART PER UNIT CHARGE SC SCH ×4 (09:35→21:18)
[2022-10-28] MEDS: FLUTICASONE/VILANTEROL 200/25MCG 14 PUFFS/INHALER INH SCH (09:48)
[2022-10-28] MEDS: ATORVASTATIN 10 MG TAB PO SCH (09:50)
[2022-10-28] MEDS: LOSARTAN POTASSIUM 50 MG TAB PO SCH (09:50)
[2022-10-28] MEDS: METOPROLOL SUCC 25MG EXT REL TAB PO SCH (09:50)
[2022-10-28] MEDS: PANTOprazole 40 MG TAB PO SCH (09:51)
[2022-10-28] MEDS: predniSONE 20 MG TAB PO SCH ×2 (09:51→21:52)
[2022-10-28] MEDS ORDERED: LANTUS PER UNIT CHARGE SC SCH (12:30)
[2022-10-28] MEDS ORDERED: INSULIN HUMAN REGULAR PER UNIT 10 UNITS in SYRINGE 9.9 ML IV ONE (12:30)
--- NOTE | 2022-10-28 13:56 | Pharmacy Report ---
Pharmacy Glycemic Short Note 2 - Date of Service October 28, 2022 - Glycemic Short BSG Results (Last 24 hours): 10/27/22 10/27/22 10/28/22 23:34 23:46 05:25 Glucose 174 H 387 H* POC Glucose POC Glucose (other) 184 H 10/28/22 10/28/22 07:53 11:44 Glucose POC Glucose 334 H* 311 H* POC Glucose (other) OUTPATIENT ANTIDIABETIC REGIMEN: * Metformin ER 2000 mg PO BID HbA1c ordered for 10/29/22 ASSESSMENT: * 72 y/o F admitted for respiratory distress and history of interstitial lung disease. Patient also with history of Type 2 diabetes managed only on oral Metformin at home. She was recently on steroids for her chronic lung disease. Currently unknown A1c but ordered for tomorrow. * On admission her blood sugars was 174 mg/dl around midnight last night but trended up above 300 mg/dl early this AM. * Basal insulin 20 units was given around 6 AM and Novolog ordered with stress of 3 parameters, in addition to 5 units of regular IV insulin. * Prednisone 20 mg PO BID was started and first dose given this AM. * Pre-lunch BSG elevated at 311 mg/dl contributed by the steroid dose this morning also. * Additional 10 units of IV regular insulin given around noon, 10 units of basal added, and Novolog parameters tightened. * Anticipate BSGs to trend down by dinner time. * More basal insulin added for HS on a scale based on BSG. PLAN FOR INPATIENT GLYCEMIC CONTROL: * Hold outpatient oral diabetes medications * Basal insulin * Lantus 30 units SQ given today AM * Lantus 10-20 units SQ HS based on BSG - 10 units for BSG less than 150 - 15 units for BSG between 150-200 - 20 units for BSG above 200 * Bolus insulin * NovoLog per scale ACHS or Q6hrs while NPO * Goal Range: Low 110 mg/dL - High 140 mg/dL * Correction Factor: 15 mg/dL/unit * Nutritional / Prandial insulin per carb ratio of 1 unit per 5 grams CHO consumed
[2022-10-28 15:18] LABS: A calco-baum cmplx NotReported Not Detected (NotDetected); Bact fragilis Not Reported Not Detected (NotDetected); C auris Not Reported Not Detected (NotDetected); Calbicans Not Reported Not Detected (NotDetected); Candida glabrata Not Reported Not Detected (NotDetected); Candida krusei Not Reported Not Detected (NotDetected); Cneoformans/gatti Not Reported Not Detected (NotDetected); Cparapsilosis Not Reported Not Detected (NotDetected); Ctropicalis Not Reported Not Detected (NotDetected); E cloacae compx Not Reported Not Detected (NotDetected); Efaecalis Not Reported Not Detected (NotDetected); Efaecium Not Reported Not Detected (NotDetected); Enterobacterales Not Reported Not Detected (NotDetected); Escherichia coli Not Reported Not Detected (NotDetected); H influenzae Not Reported Not Detected (NotDetected); K aerogenes Not Reported Not Detected (NotDetected); Koxytoca Not Reported Not Detected (NotDetected); Kpneumoniae grp Not Reported Not Detected (NotDetected); Lmonocyt Not Reported Not Detected (NotDetected); N meningitidis Not Reported Not Detected (NotDetected); P aeruginosa Not Reported Not Detected (NotDetected); Proteus spp Not Reported Not Detected (NotDetected); Salmonella spp Not Reported Not Detected (NotDetected); Smarcescens Not Reported Not Detected (NotDetected); Staph lugdunensis Not Reported Not Detected (NotDetected); Staphaureus Not Reported Not Detected (NotDetected); Staphepi Not Reported DETECTED (NotDetected); Staphylococcus spp. DETECTED (NotDetected); Stenmaltophilia Not Reported Not Detected (NotDetected); Strep agal(GrpB) Not Reported Not Detected (NotDetected); Strep pneum Not Reported Not Detected (NotDetected); Strep pyog (GrpA) Not Reported Not Detected (NotDetected); Strep spp Not Reported Not Detected (NotDetected)
[2022-10-28 15:22] LABS: mecAC Resistant Gene DETECTED (NotDetected)
[2022-10-28 15:23] LABS: Staph spp. Not Reported DETECTED (NotDetected); Staphylococcus epidermidis DETECTED (NotDetected)
[2022-10-28] MEDS ORDERED: VANCOMYCIN HCL 1,500 MG in SODIUM CHLORIDE 0.9% 500 ML IV ONE (15:32)
[2022-10-28] MEDS ORDERED: VANCOMYCIN CONSULT ACTIVE PRN (15:32)
[2022-10-28 16:47] LABS: Appearance Urine Cloudy (Clear); Bacteria Urine Automated Negative (Negative); Bilirubin Urine Negative (Negative); Blood Urine Negative (Negative); Color Urine Dark Yellow; Epithelial Cell Urine Auto >30 /lpf (0-5); Glucose Urine UA 3+ (Negative); Ketones Urine Trace (Negative); Leukocyte Esterase Urine Negative (Negative); Nitrite Urine Negative (Negative); Protein Urine 1+ (Negative); RBC Urine Automated 0-4 /hpf (0-4); Specific Gravity Urine > 1.045 (1.000-1.030); Urobilinogen Urine Negative (Negative)
[2022-10-28] MEDS ORDERED: VANCOMYCIN HCL 1,750 MG in SODIUM CHLORIDE 0.9% 500 ML IV ONE (18:00)
--- NOTE | 2022-10-28 19:12 | Pharmacy Report ---
Pharmacy PK ABX Note - Date of Service October 28, 2022 - Assessment and Plan Assessment 72 year old F receiving vancomycin for treatment of Staphylococcus epidermidis bacteremia w/ unclear source at this time. Pertinent PMH includes interstitial lung disease and T2DM. Pertinent microbiologic data includes: blood cultures x 2 (10/27) growing gram-positive cocci w/ BCID-2 showing Staph epidermidis w/ mecA/C-methicillin resistance gene. Day # 1 of antimicrobial therapy. Plan Vancomycin * Loading dose: 1750 mg IV x 1 * Maintenance dose: 1000 mg IV every 12 hours * Regimen is predicted to achieve target AUC/HOSSEIN of 400-600 mg/L.hr * Trough level ordered for: 10/31/22 Pharmacy will continue to follow and will adjust dose/frequency as necessary. Thank you. Pharmacy has transitioned to AUC monitoring for vancomycin. AUC/HOSSEIN is the preferred PK/PD target and is associated with decreased risk of nephrotoxicity compared to traditional trough targets.
[2022-10-28] MEDS: LANTUS PER UNIT CHARGE SC SCH (21:17)
[2022-10-29] MEDS: VANCOMYCIN HCL 1,000 MG in SODIUM CHLORIDE 0.9% 250 ML IV SCH ×2 (06:25→18:11)
[2022-10-29 06:47] LABS: Hematocrit (blood only) 32.1 % (37.0-47.0); Hemoglobin 10.3 g/dl (12.0-16.0); Mean Corpuscular Hemoglobin 28.4 pg (25.0-34.0); Mean Corpuscular Hgb Conc 32.1 g/dL (32.0-36.0); Mean Corpuscular Volume 88.4 fL (80.0-100.0); Mean Platelet Volume 10.5 fL (9.4-12.4); Platelet Count 250 K/uL (130-400); RDW Coefficient of Variation 15.9 % (11.5-14.5); RDW Standard Deviation 51.9 fL (36.4-46.3); Red Blood Count 3.63 M/uL (4.20-5.40); White Blood Count 11.75 K/ul (4.8-10.8)
[2022-10-29] MEDS: ALBUT/IPRATROP 3MG/0.5MG NEB 3 ML VIAL NEB SCH ×4 (07:14→19:39)
[2022-10-29 07:15] LABS: BUN Creatinine Ratio 39.2 (10-20); Calcium 9.1 mg/dl (8.6-10.3); Est GFR (African American) 86.1 ml/min; Est GFR (Non-African American) 74.3 ml/min; Magnesium 1.9 mg/dl (1.7-2.4); Phosphorus 3.7 mg/dl (2.5-4.9); Potassium 4.5 mmol/L (3.5-5.1)
[2022-10-29 07:45] LABS: Estimated Average Glucose 157 mg/dl; Hemoglobin A1C 7.1 % (4.5-5.6)
[2022-10-29] MEDS ORDERED: LANTUS PER UNIT CHARGE SC SCH ×3 (09:00→21:00)
[2022-10-29] MEDS: predniSONE 20 MG TAB PO SCH (09:26)
[2022-10-29] MEDS: FLUTICASONE/VILANTEROL 200/25MCG 14 PUFFS/INHALER INH SCH (09:26)
[2022-10-29] MEDS: ENOXAPARIN INJ 40 MG/0.4 ML SYR SQ SCH (09:27)
[2022-10-29] MEDS: INSULIN ASPART PER UNIT CHARGE SC SCH ×4 (09:31→21:05)
--- NOTE | 2022-10-29 09:47 | Hospitalist Progress Note ---
Date of Service October 29, 2022 Assessment & Plan (1) Respiratory distress: Plan: 72-year-old female with past med significant for type 2 diabetes, chronic respiratory failure with hypoxia on home oxygen 6 L all the time, chronic idiopathic pulmonary fibrosis, severe persistent asthma, hypertension, GERD, osteoporosis, seasonal allergies presents with respiratory distress Respiratory distress Acute on chronic respiratory failure At home she is on 6 L oxygen on admission on 9lts high flow -> currently on 6L at rest History of pulmonary fibrosis on pirfenidone Possible pulmonary fibrosis flare Recently finished prednisone taper Currently saturating okay on high flow but gets tired when talking or w/ minimal exertion On admission was started onIV Solu-Medrol 40 mg 3 times daily and nebs [id number] and as needed - changed to prednisone by pulm. 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 Hold prednisone for now. Monitoring telemetry Bacteremia blood cultx posit for Staph epi. Repeat blood cultx obtained. Echo ordered. ID consulted. Pt started onvancomycin. Elevated lactic acid mostly from hypoxia, poss. sepsis will monitor. Hypertension Continue losartan and metoprolol We will monitor Diabetes Hold metformin Insulin sliding scale We will follow blood sugars while on steroids. and HbA1c levels glycemic pharmacy consult. Hyperlipidemia on statin GERD on omeprazole DVT prophylaxis Lovenox Disposition telemetry floor Full code Admission and Anticipated Discharge Date Admission Date: October 28, 2022 Subjective Pt seen in follow up of resp. failure, hypoxia, hx of ILD, now w/ bacteremia Sitting up in bed in NAD, she is able to talk without much difficulty but says with any minimal exertion she gets very short of breath No chest pain. No fever, chills,no abd. pain. Discussed w/ pulmonary medicine - will obtain images CT chest from [facility], and blood work - KYLE and autoimmune work-up Review of Systems Review of Systems: All systems reviewed & are unremarkable except as noted in Subjective Physical Exam Physical Exam: General- elderly F in NAD Head- atraumatic Eyes- PERRL ENT- oropharynx clear Neck- supple, no JVD Lungs- clear to auscultation no wheezing, mild bibasilar cackles Heart- regular rhythm; no murmur, no gallop, Abdomen- normal bowel sounds, soft, nontender, no distension. Extremities- no pretibial edema, no erythema seen. Neuro- alert, oriented x 3; PERRL, no facial palsy; no dysarthria; non focal. Skin- warm & dry Results & Data Results & Data Vital Signs (Past 12 Hours) Vital Signs Temp Pulse Pulse Resp BP Pulse Ox O2 Del Method 10/29/22 07:15 60 18 95 Nasal Cannula 10/29/22 03:08 36.5 C 56 L 18 107/58 L 98 High Flow Nasal Cannula 10/28/22 23:21 72 10/28/22 22:54 36.5 C 69 18 121/70 97 High Flow Nasal Cannula O2 Flow Rate 10/29/22 07:15 6 10/29/22 03:08 6 10/28/22 23:21 10/28/22 22:54 6 Laboratory Results 10/29/22 10/29/22 10/29/22 Range/Units 07:51 05:48 05:48 WBC 11.75 H (4.8-10.8) K/ul RBC 3.63 L (4.20-5.40) M/uL Hgb 10.3 L (12.0-16.0) g/dl Hct 32.1 L (37.0-47.0) % MCV 88.4 (80.0-100.0) fL MCH 28.4 (25.0-34.0) pg MCHC 32.1 (32.0-36.0) g/dL RDW Std Deviation 51.9 H (36.4-46.3) fL RDW Coeff of Lynn 15.9 H (11.5-14.5) % Plt Count 250 (130-400) K/uL MPV 10.5 (9.4-12.4) fL Sodium (136-145) mmol/L Potassium (3.5-5.1) mmol/L Chloride (98-107) mmol/L Carbon Dioxide (21-32) mmol/L Anion Gap (3-11) BUN (6-23) mg/dl Creatinine (0.6-1.2) mg/dl Est Cr Clr Drug Dosing ml/min Est GFR ( Amer) ml/min Est GFR (Non-Af Amer) ml/min BUN/Creatinine Ratio (10-20) Glucose (70-99(Fasting)) mg/dl POC Glucose 163 H (70-99) mg/dl Estimat Average Glucose 157 mg/dl Hemoglobin A1c 7.1 H (4.5-5.6) % Calcium (8.6-10.3) mg/dl Phosphorus (2.5-4.9) mg/dl Magnesium (1.7-2.4) mg/dl Urine Color Urine Appearance (Clear) Urine pH (4.5-7.5) Ur Specific Corning (1.000-1.030) Urine Protein (Negative) Urine Glucose (UA) (Negative) Urine Ketones (Negative) Urine Blood (Negative) Urine Nitrite (Negative) Urine Bilirubin (Negative) Urine Urobilinogen (Negative) Ur Leukocyte Esterase (Negative) Urine WBC (Auto) (0-5) /hpf Urine RBC (Auto) (0-4) /hpf U Hyaline Cast (Auto) (0-5) /lpf U Epithel Cells (Auto) (0-5) /lpf Urine Bacteria (Auto) (Negative) Staphylococcus sp PCR (NotDetected) mecA/C-Methicil Resis Gene (NotDetected) Staph epidermidis (PCR) (NotDetected) Bld Cult ID Panel PCR (NotDetected) 10/29/22 10/28/22 10/28/22 Range/Units 05:47 20:36 16:47 WBC (4.8-10.8) K/ul RBC (4.20-5.40) M/uL Hgb (12.0-16.0) g/dl Hct (37.0-47.0) % MCV (80.0-100.0) fL MCH (25.0-34.0) pg MCHC (32.0-36.0) g/dL RDW Std Deviation (36.4-46.3) fL RDW Coeff of Lynn (11.5-14.5) % Plt Count (130-400) K/uL MPV (9.4-12.4) fL Sodium 140 (136-145) mmol/L Potassium 4.5 (3.5-5.1) mmol/L Chloride 110 H (98-107) mmol/L Carbon Dioxide 26 (21-32) mmol/L Anion Gap 4 (3-11) BUN 31 H (6-23) mg/dl Creatinine 0.79 (0.6-1.2) mg/dl Est Cr Clr Drug Dosing 62.0 ml/min Est GFR ( Amer) 86.1 ml/min Est GFR (Non-Af Amer) 74.3 ml/min BUN/Creatinine Ratio 39.2 H (10-20) Glucose 143 H (70-99(Fasting)) mg/dl POC Glucose 145 H 148 H (70-99) mg/dl Estimat Average Glucose mg/dl Hemoglobin A1c (4.5-5.6) % Calcium 9.1 (8.6-10.3) mg/dl Phosphorus 3.7 (2.5-4.9) mg/dl Magnesium 1.9 (1.7-2.4) mg/dl Urine Color Urine Appearance (Clear) Urine pH (4.5-7.5) Ur Specific Corning (1.000-1.030) Urine Protein (Negative) Urine Glucose (UA) (Negative) Urine Ketones (Negative) Urine Blood (Negative) Urine Nitrite (Negative) Urine Bilirubin (Negative) Urine Urobilinogen (Negative) Ur Leukocyte Esterase (Negative) Urine WBC (Auto) (0-5) /hpf Urine RBC (Auto) (0-4) /hpf U Hyaline Cast (Auto) (0-5) /lpf U Epithel Cells (Auto) (0-5) /lpf Urine Bacteria (Auto) (Negative) Staphylococcus sp PCR (NotDetected) mecA/C-Methicil Resis Gene (NotDetected) Staph epidermidis (PCR) (NotDetected) Bld Cult ID Panel PCR (NotDetected) 10/28/22 10/28/22 10/27/22 Range/Units 16:32 11:44 23:40 WBC (4.8-10.8) K/ul RBC (4.20-5.40) M/uL Hgb (12.0-16.0) g/dl Hct (37.0-47.0) % MCV (80.0-100.0) fL MCH (25.0-34.0) pg MCHC (32.0-36.0) g/dL RDW Std Deviation (36.4-46.3) fL RDW Coeff of Lynn (11.5-14.5) % Plt Count (130-400) K/uL MPV (9.4-12.4) fL Sodium (136-145) mmol/L Potassium (3.5-5.1) mmol/L Chloride (98-107) mmol/L Carbon Dioxide (21-32) mmol/L Anion Gap (3-11) BUN (6-23) mg/dl Creatinine (0.6-1.2) mg/dl Est Cr Clr Drug Dosing ml/min Est GFR ( Amer) ml/min Est GFR (Non-Af Amer) ml/min BUN/Creatinine Ratio (10-20) Glucose (70-99(Fasting)) mg/dl POC Glucose 311 H* (70-99) mg/dl Estimat Average Glucose mg/dl Hemoglobin A1c (4.5-5.6) % Calcium (8.6-10.3) mg/dl Phosphorus (2.5-4.9) mg/dl Magnesium (1.7-2.4) mg/dl Urine Color Dark Yellow Urine Appearance Cloudy A (Clear) Urine pH 5.0 (4.5-7.5) Ur Specific Corning > 1.045 H (1.000-1.030) Urine Protein 1+ H (Negative) Urine Glucose (UA) 3+ H (Negative) Urine Ketones Trace H (Negative) Urine Blood Negative (Negative) Urine Nitrite Negative (Negative) Urine Bilirubin Negative (Negative) Urine Urobilinogen Negative (Negative) Ur Leukocyte Esterase Negative (Negative) Urine WBC (Auto) 1-5 (0-5) /hpf Urine RBC (Auto) 0-4 (0-4) /hpf U Hyaline Cast (Auto) 5-10 H (0-5) /lpf U Epithel Cells (Auto) >30 H (0-5) /lpf Urine Bacteria (Auto) Negative (Negative) Staphylococcus sp PCR DETECTED A (NotDetected) mecA/C-Methicil Resis Gene DETECTED A (NotDetected) Staph epidermidis (PCR) DETECTED A (NotDetected) Bld Cult ID Panel PCR See PCR Comment (NotDetected) Medications Administered Current Inpatient Medications Acetaminophen (Acetaminophen 325 Mg Tab) 650 mg PO Q4H PRN PRN Reason: Pain or Fever Stop: 11/27/22 04:50 Albuterol (Albut/Ipratrop 3mg/0.5mg Neb 3 Ml Vial) 3 ml NEB QIDR JEREMIAH; Protocol Stop: 11/27/22 06:59 Last Admin: 10/29/22 07:14 Dose: 3 ml Albuterol (Albut/Ipratrop 3mg/0.5mg Neb 3 Ml Vial) 3 ml NEB Q4R PRN; Protocol PRN Reason: Shortness Of Breath Or Wheezing Stop: 11/27/22 04:50 Atorvastatin Calcium (Atorvastatin 10 Mg Tab) 10 mg PO QAM JEREMIAH Stop: 11/27/22 08:59 Last Admin: 10/28/22 09:50 Dose: 10 mg Dextrose (Dextrose 50% 50 Ml Syringe) 25 - 50 ml IV UD PRN; Protocol PRN Reason: Hypoglycemia Protocol Stop: 11/27/22 04:50 Enoxaparin Sodium (Enoxaparin Inj 40 Mg/0.4 Ml Syr) 40 mg SQ Q24H JEREMIAH Stop: 11/27/22 05:59 Last Admin: 10/29/22 09:27 Dose: 40 mg Fluticasone/Vilanterol (Fluticasone/Vilanterol 200/25mcg 14 Puffs/Inhaler) 1 puffs INH DAILY JEREMIAH Stop: 11/27/22 08:59 Last Admin: 10/29/22 09:26 Dose: 1 puffs Glucagon (Glucagon For Inj 1 Mg Vial) 1 mg SQ UD PRN; Protocol PRN Reason: Hypoglycemia Protocol Stop: 11/27/22 04:50 Glucose (Glucose 10 Tab/Tube) 4 - 8 tab PO UD PRN; Protocol PRN Reason: Hypoglycemia Treatment Stop: 11/27/22 04:50 Glucose (Glucose 40% Gel 15 Gm Tube) 15 - 30 gm PO UD PRN; Protocol PRN Reason: Hypoglycemia Protocol Stop: 11/27/22 04:50 Vancomycin HCl 1,000 mg/ (Sodium Chloride) 270 mls @ 200 mls/hr IV Q12H JEREMIAH Stop: 11/12/22 04:59 Last Infusion: 10/29/22 08:42 Dose: Infused Insulin Aspart (Insulin Aspart Per Unit Charge) 0 units SC ACHS JEREMIAH Stop: 11/27/22 07:29 Last Admin: 10/29/22 09:31 Dose: 10 units Insulin Glargine (Lantus Per Unit Charge) 0 units SC HS [facility]; Protocol Stop: 11/27/22 20:59 Last Admin: 10/28/22 21:17 Dose: 10 units Insulin Glargine (Lantus Per Unit Charge) 20 units SC DAILY [facility] Stop: 11/28/22 08:59 Last Admin: 10/29/22 09:31 Dose: 20 units Losartan Potassium (Losartan Potassium 50 Mg Tab) [facility] Stop: 11/27/22 08:59 Last Admin: 10/28/22 09:50 Dose: 50 mg Metoprolol Succinate (Metoprolol Succ 25mg Ext Rel Tab) 25 mg PO [facility] Stop: 11/27/22 08:59 Last Admin: 10/28/22 09:50 Dose: 25 mg Miscellaneous (Order Awaiting Action: Pirfenidone 801 Mg Tablet) 1 each N/A QS [facility] Stop: 11/27/22 07:59 Last Admin: 10/29/22 09:24 Dose: Not Given Miscellaneous (Carbohydrates For Hypoglycemia ) 15 - 30 gm PO UD PRN PRN Reason: Hypoglycemia Protocol Stop: 11/27/22 04:50 Miscellaneous Information (Pharmacy Glycemic Mgmt Consult) 1 each N/A UD PRN; Protocol PRN Reason: Consult Stop: 11/27/22 06:33 Miscellaneous Information (Vancomycin Consult Active) 1 each N/A UD PRN PRN Reason: Consult Stop: 11/27/22 15:31 Nitroglycerin (Nitroglycerin Sl 0.4 Mg/Tab Tab) 0.4 mg SL Q5M PRN PRN Reason: Chest Pain Stop: 11/27/22 04:50 Pantoprazole Sodium (Pantoprazole 40 Mg Tab) 40 mg PO [facility] Stop: 11/27/22 08:59 Last Admin: 10/28/22 09:51 Dose: 40 mg Polyethylene Glycol (Polyethylene (Miralax) 17 Gm Pack) 17 gm PO DAILY PRN PRN Reason: Constipation Stop: 11/27/22 04:50 Prednisone (Prednisone 20 Mg Tab) 20 mg PO BID [facility] Stop: 11/27/22 08:59 Last Admin: 10/29/22 09:26 Dose: 20 mg
--- NOTE | 2022-10-29 09:58 | Electrocardiogram Report ---
Test Reason : Blood Pressure : / mmHG Vent. Rate : 128 BPM Atrial Rate : 128 BPM P-R Int : 134 ms QRS Dur : 068 ms QT Int : 278 ms P-R-T Axes : 039 -15 143 degrees QTc Int : 405 ms Poor data quality, interpretation may be adversely affected Sinus tachycardia Possible Left atrial enlargement Left ventricular hypertrophy with repolarization abnormality ( R in aVL ) Abnormal ECG No previous ECGs available Confirmed by Sharif Ayers ([id number]) on 10/29/2022 9:58:37 AM Referred By: REFERRED SELF Confirmed By:Sharif Ayers
[2022-10-29] MEDS: METOPROLOL SUCC 25MG EXT REL TAB PO SCH (10:00)
[2022-10-29] MEDS: ATORVASTATIN 10 MG TAB PO SCH (10:00)
[2022-10-29] MEDS: LOSARTAN POTASSIUM 50 MG TAB PO SCH (10:00)
[2022-10-29] MEDS: PANTOprazole 40 MG TAB PO SCH (10:00)
--- NOTE | 2022-10-29 13:11 | Pulmonology Progress Note ---
Date of Service October 29, 2022 Assessment & Plan (1) Interstitial lung disease: (2) Respiratory failure: Chronicity: acute on chronic Respiratory failure complication: hypoxia Qualified Code(s): J96.21 - Acute and chronic respiratory failure with hypoxia (3) Hypoxemic respiratory failure, chronic: Plan Impression: 72-year-old female with history of interstitial lung disease. She was advised that she has IPF however she was never biopsied, we do not have access to her serological evaluation, and her CT scan is not typical. She does have evidence of subpleural fibrosis but it extends up to the apices and there is a significant component of groundglass opacities. In addition, the patient was treated with steroids September 2022 with clinical response CTA chest 10/28/2022 personally reviewed: Increased reticular markings and traction bronchiectasis appreciated bilaterally especially in the upper lobes anteriorly Motion degraded study Cardiomegaly Minimal significant mediastinal lymphadenopathy Recommendations: --Acute on chronic hypoxic respiratory failure Personally the CAT scan of the chest which she had done at significant motion degradation I clearly do not see any significant groundglass opacities Respiratory bio fire negative for everything on 10/27/2022 Continue with O2 supplementation to keep oxygen saturation between 90-92% --ILD Atypical UIP pattern Denies any personal history of any autoimmune disease Took steroid back in September with a 1 month taper. 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 I would not like the patient to be on high-dose steroids with possibility of sepsis. Hold prednisone I will order sputum PJP PCR Case was discussed with Dr. Ibanez Please note the above document was generated using voice recognition software. It may contain grammatical, syntax or spelling errors.Any formal questions or concerns about the content, text or information contained within the body of this dictation should be directly addressed to the provider for clarification. Admission and Anticipated Discharge Date Admission Date: October 28, 2022 Subjective Patient seen and examined at bedside. No acute distress, notable since overnight She was saturating 93% on 6 L nasal cannula at rest Denies any chest pain, occasional cough with clear phlegm No headache Fair appetite No nausea vomiting Review of Systems Review of Systems: All systems reviewed & are unremarkable except as noted in Subjective Physical Exam Physical Exam: Constitutional: No acute distress HEENT: EOMI, PERRLA Respiratory system: Decreased air entry bilaterally, no wheeze, rhonchi, positive Velcro-like crackles appreciated bilaterally CVS: S1-S2 positive, no murmurs or gallops Abdomen: Soft, nontender, nondistended, positive bowel sounds x4 Extremities: +2 pulses bilaterally radialis/ dorsalis pedis, no cyanosis, no edema Neuro: Awake alert oriented x3 Psych: Normal mood and affect G/U: No Estes Skin: no rashes, warm and dry Lymphatic: no cervical or axillary lymphadenopathy Results & Data Results & Data Vital Signs (Past 12 Hours) Vital Signs Temp Pulse Resp BP Pulse Ox O2 Del Method O2 Flow Rate 10/29/22 10:45 88 20 94 Nasal Cannula 6 10/29/22 07:15 60 18 95 Nasal Cannula 6 10/29/22 03:08 36.5 C 56 L 18 107/58 L 98 High Flow Nasal Cannula 6 Laboratory Results 10/29/22 05:48 10/29/22 05:47 PG Care Time/CCT Total # of Minutes Spent Total Time Spent with Patient: Total time spent is greater than 50% in coordination of care (as documented) at patient's floor/unit and/or counseling patient: Coding Level of Care Code 20580 SUB INP/OBS CARE 3/50MIN Diagnoses Interstitial lung disease J84.9 Respiratory failure J96.21 Chronicity: acute on chronic Respiratory failure complication: hypoxia Hypoxemic respiratory failure, chronic J96.11
--- NOTE | 2022-10-29 13:11 | Pharmacy Report ---
Pharmacy Glycemic Short Note 2 - Date of Service October 29, 2022 - Glycemic Short BSG Results (Last 24 hours): 10/28/22 10/28/22 10/29/22 16:47 20:36 05:47 Glucose 143 H POC Glucose 148 H 145 H 10/29/22 10/29/22 10/29/22 07:51 12:11 12:13 Glucose POC Glucose 163 H 262 H 239 H OUTPATIENT ANTIDIABETIC REGIMEN: * Metformin ER 2000 mg PO BID HbA1c: 7.1% (10/29/22) ASSESSMENT: 10/29/22: * BSGs trended down nicely yesterday * Received 85 units of insulin (40 units of basal and 45 units of prandial/correctional bolus) * Prednisone 20 mg PO BID continues today * Will maintain aggressive Novolog parameters today * Fasting BSG of 163 mg/dL - will continue current basal 10/28/22: * 72 y/o F admitted for respiratory distress and history of interstitial lung disease. Patient also with history of Type 2 diabetes managed only on oral Metformin at home. She was recently on steroids for her chronic lung disease. Currently unknown A1c but ordered for tomorrow. * On admission her blood sugars was 174 mg/dl around midnight last night but trended up above 300 mg/dl early this AM. * Basal insulin 20 units was given around 6 AM and Novolog ordered with stress of 3 parameters, in addition to 5 units of regular IV insulin. * Prednisone 20 mg PO BID was started and first dose given this AM. * Pre-lunch BSG elevated at 311 mg/dl contributed by the steroid dose this morni ng also. * Additional 10 units of IV regular insulin given around noon, 10 units of basal added, and Novolog parameters tightened. * Anticipate BSGs to trend down by dinner time. * More basal insulin added for HS on a scale based on BSG. PLAN FOR INPATIENT GLYCEMIC CONTROL: * Hold outpatient oral diabetes medications * Basal insulin * Lantus 20 units SC x 1 this morning * Lantus 10-20 units SC HS * Reassess in AM * Bolus insulin * NovoLog per scale ACHS or Q6hrs while NPO * Goal Range: Low 110 mg/dL - High 140 mg/dL * Correction Factor: 20 mg/dL/unit * Nutritional / Prandial insulin per carb ratio of 1 unit per 5 grams CHO consumed
[2022-10-29] MEDS: LANTUS PER UNIT CHARGE SC SCH (21:06)
[2022-10-30] MEDS: VANCOMYCIN HCL 1,000 MG in SODIUM CHLORIDE 0.9% 250 ML IV SCH (04:58)
[2022-10-30 05:06] LABS: Hematocrit (blood only) 31.1 % (37.0-47.0); Mean Corpuscular Hemoglobin 28.7 pg (25.0-34.0); Mean Corpuscular Hgb Conc 32.2 g/dL (32.0-36.0); Mean Corpuscular Volume 89.1 fL (80.0-100.0); Mean Platelet Volume 10.2 fL (9.4-12.4); Platelet Count 230 K/uL (130-400); RDW Standard Deviation 52.3 fL (36.4-46.3); Red Blood Count 3.49 M/uL (4.20-5.40); White Blood Count 10.73 K/ul (4.8-10.8)
[2022-10-30 05:25] LABS: BUN Creatinine Ratio 37.3 (10-20); Creatinine Clr Calc Pharmacy 73.1 ml/min; Est GFR (African American) 101.1 ml/min; Est GFR (Non-African American) 87.2 ml/min; Magnesium 1.9 mg/dl (1.7-2.4); Phosphorus 3.8 mg/dl (2.5-4.9); Potassium 4.1 mmol/L (3.5-5.1)
[2022-10-30] MEDS: ENOXAPARIN INJ 40 MG/0.4 ML SYR SQ SCH (06:37)
[2022-10-30] MEDS: ALBUT/IPRATROP 3MG/0.5MG NEB 3 ML VIAL NEB SCH ×4 (07:11→19:29)
[2022-10-30] MEDS: FLUTICASONE/VILANTEROL 200/25MCG 14 PUFFS/INHALER INH SCH (08:38)
[2022-10-30] MEDS: ATORVASTATIN 10 MG TAB PO SCH (08:39)
[2022-10-30] MEDS: METOPROLOL SUCC 25MG EXT REL TAB PO SCH (08:39)
[2022-10-30] MEDS: LOSARTAN POTASSIUM 50 MG TAB PO SCH (08:39)
[2022-10-30] MEDS: PANTOprazole 40 MG TAB PO SCH (08:39)
[2022-10-30] MEDS: INSULIN ASPART PER UNIT CHARGE SC SCH ×4 (08:43→21:05)
--- NOTE | 2022-10-30 08:52 | Pulmonology Progress Note ---
Date of Service October 30, 2022 Assessment & Plan (1) Interstitial lung disease: (2) Respiratory failure: Chronicity: acute on chronic Respiratory failure complication: hypoxia Qualified Code(s): J96.21 - Acute and chronic respiratory failure with hypoxia (3) Hypoxemic respiratory failure, chronic: Plan Impression: 72-year-old female with history of interstitial lung disease. She was advised that she has IPF however she was never biopsied, we do not have access to her serological evaluation, and her CT scan is not typical. She does have evidence of subpleural fibrosis but it extends up to the apices. In addition, the patient was treated with steroids September 2022 with clinical response CTA chest 10/28/2022 personally reviewed: Increased reticular markings and traction bronchiectasis appreciated bilaterally especially in the upper lobes anteriorly Motion degraded study Cardiomegaly Minimal significant mediastinal lymphadenopathy HRCT on 07/2022 reviewed. No significant progression when compared. CTA 10/28/2022 of poor quality when evaluating lung parenchyma due to motion degradation --Acute on chronic hypoxic respiratory failure Personally the CAT scan of the chest which she had done at significant motion degradation I clearly do not see any significant groundglass opacities Respiratory bio fire negative for everything on 10/27/2022 Continue with O2 supplementation to keep oxygen saturation between 90-92% --ILD Atypical UIP pattern Denies any personal history of any autoimmune disease Took steroid back in September with a 1 month taper. Clinically she did find benefit from it Continue with pantoprazole given ILD Continue with pirfenidone same dose Autoimmune work-up negative ordered by primary research anthropologist, IgE was negative -- History of rheumatoid arthritis in sister Plan: HRCT performed on 07/2022 reviewed as above. Patient's blood cultures have been persistently positive. I would not like the patient to be on high-dose steroids with possibility of sepsis. Hold prednisone Sputum PJP PCR pending Please note the above document was generated using voice recognition software. It may contain grammatical, syntax or spelling errors.Any formal questions or concerns about the content, text or information contained within the body of this dictation should be directly addressed to the provider for clarification. Admission and Anticipated Discharge Date Admission Date: October 28, 2022 Supervising Physician Co-Signing Physician Notes I saw and evaluated the patient with Floyd Michelle PA-C and agree with findings and plan as documented in the note. Patient seen and bedside. No acute distress, no adverse events overnight Patient was saturating 93-94% on 6 L nasal cannula at rest Overnight patient did tell me that patient desaturates to low 70s on exertion at 6 L. Advised to increase to 10 L on exertion Denies any chest pain, occasional cough with clear phlegm Has been afebrile Constitutional: No acute distress HEENT: EOMI, PERRLA Respiratory system:Decreased air entry bilaterally, no wheeze, rhonchi, positive Velcro-like crackles appreciated bilaterally CVS: S1-S2 positive, no murmurs or gallops Abdomen: Soft, nontender, nondistended, positive bowel sounds x4 Extremities: +2 pulses bilaterally radialis/ dorsalis pedis,no cyanosis, no edema Neuro: Awake alert oriented x3 Psych: Normal mood and affect G/U: No Estes Plan: Follow-up sputum PJP PCR BNP today was only [address] from July 2022 personally reviewed: Diffuse articular marking appreciated, significant mosaicism on expiratory images Autoimmune work-up was negative which was ordered by primary research anthropologist at [facility]. Follow-up repeat blood culture which was done 10/29/2022 Continue to hold prednisone Recommend having discussion with the patient regarding CODE STATUS. As per Dr. Newman's note patient prefers to be DNR Case was discussed with Dr. Ibanez Please note the above document was generated using voice recognition software. It may contain grammatical, syntax or spelling errors.Any formal questions or concerns about the content, text or information contained within the body of this dictation should be directly addressed to the provider for clarification. Subjective Patient was seen and evaluated at bedside. She reports that she is feeling well other than having persistent severe dyspnea on exertion when she ambulates to and from the restroom. She is currently on her baseline 6 L nasal cannula and saturating in the low 90s. Review of Systems Review of Systems: Please refer to admission H&P. No additions or deletions Physical Exam Physical Exam: VITAL SIGNS - Vital signs and nursing notes were reviewed. GENERAL - 72-year-old female appearing her stated age who is in no acute distress. Communicates well with provider and answers questions appropriately. LUNGS -Auscultation reveals diminished breath sounds without wheezes or rhonchi. CARDIAC - RRR with S1/S2. No murmur, rubs, or gallops appreciated. PSYCH - A&Ox3 and cooperates fully with examiner. Pt is very pleasant and interacts well with examiner. Skin: no rashes, warm and dry Lymphatic: no cervical or axillary lymphadenopathy Results & Data Results & Data Vital Signs (Past 12 Hours) Vital Signs Temp Pulse Pulse Resp BP BP Pulse Ox 10/30/22 07:24 36.3 C L 66 20 142/84 H 95 10/30/22 07:38 45 L 10/30/22 07:38 10/30/22 07:12 77 17 95 10/30/22 03:15 36.6 C 58 L 16 129/73 97 10/29/22 22:00 74 10/29/22 23:50 36.5 C 63 16 120/76 98 O2 Del Method O2 Flow Rate 10/30/22 07:24 Nasal Cannula 6 10/30/22 07:38 10/30/22 07:38 High Flow Nasal Cannula 6 10/30/22 07:12 Nasal Cannula 6 10/30/22 03:15 High Flow Nasal Cannula 6 10/29/22 22:00 10/29/22 23:50 High Flow Nasal Cannula 6 PG Care Time/CCT Total # of Minutes Spent Total Time Spent with Patient: Total time spent is greater than 50% in coordination of care (as documented) at patient's floor/unit and/or counseling patient: Coding Level of Care Code 24385 SUB INP/OBS CARE 2/35MIN Diagnoses Interstitial lung disease J84.9 Respiratory failure J96.21 Chronicity: acute on chronic Respiratory failure complication: hypoxia Hypoxemic respiratory failure, chronic J96.11
--- NOTE | 2022-10-30 10:49 | Pharmacy Report ---
Pharmacy Glycemic Short Note 2 - Date of Service October 30, 2022 - Glycemic Short BSG Results (Last 24 hours): 10/29/22 10/29/22 10/29/22 12:11 12:13 16:29 Glucose POC Glucose 262 H 239 H 182 H 10/29/22 10/30/22 10/30/22 20:18 04:35 07:19 Glucose 86 POC Glucose 213 H 76 OUTPATIENT ANTIDIABETIC REGIMEN: * Metformin ER 2000 mg PO BID HbA1c: 7.1% (10/29/22) ASSESSMENT: 10/30: * BSGs 253-378-51xz/dl the last 24h. Received 40 units of basal and 44 units of bolus insulin yesterday. * Tolerating diet, prednisone held. * Fasting BSG this AM was low, 76mg/dl, likely due to steroids being held after AM dose yesterday. Will hold basal this AM, lower dose of Lantus tonight per BSG scale. Novolog loosened. 10/29/22: * BSGs trended down nicely yesterday * Received 85 units of insulin (40 units of basal and 45 units of prandial/correctional bolus) * Prednisone 20 mg PO BID continues today * Will maintain aggressive Novolog parameters today * Fasting BSG of 163 mg/dL - will continue current basal 10/28/22: * 72 y/o F admitted for respiratory distress and history of interstitial lung disease. Patient also with history of Type 2 diabetes managed only on oral Metformin at home. She was recently on steroids for her chronic lung disease. Currently unknown A1c but ordered for tomorrow. * On admission her blood sugars was 174 mg/dl around midnight last night but trended up above 300 mg/dl early this AM. * Basal insulin 20 units was given around 6 AM and Novolog ordered with stress of 3 parameters, in addition to 5 units of regular IV insulin. * Prednisone 20 mg PO BID was started and first dose given this AM. * Pre-lunch BSG elevated at 311 mg/dl contributed by the steroid dose this morning also. * Additional 10 units of IV regular insulin given around noon, 10 units of basal added, and Novolog parameters tightened. * Anticipate BSGs to trend down by dinner time. * More basal insulin added for HS on a scale based on BSG. PLAN FOR INPATIENT GLYCEMIC CONTROL: * Hold outpatient oral diabetes medications * Basal insulin * Lantus 5 units HS if BSG <180mg/dL, 10 units if BSG 180mg/dl or greater * Bolus insulin * NovoLog per scale ACHS or Q6hrs while NPO * Goal Range: Low 110 mg/dL - High 140 mg/dL * Correction Factor: 25 mg/dL/unit * Nutritional / Prandial insulin per carb ratio of 1 unit per 7 grams CHO consumed
--- NOTE | 2022-10-30 12:50 | Pharmacy Report ---
Pharmacy PK ABX Note - Date of Service October 30, 2022 - Assessment and Plan Assessment 10/30: Day # 3 vancomycin. 10/27 blood cultures (+) Staph epidermidis X 2 in 3/4. Repeat cultures on 10/28 remain (+) for Staph epi X 2 in 1 bottle. Renal function stable. ID consulted. 10/28: 72 year old F receiving vancomycin for treatment of Staphylococcus epidermidis bacteremia w/ unclear source at this time. Pertinent PMH includes interstitial lung disease and T2DM. Pertinent microbiologic data includes: blood cultures x 2 (10/27) growing gram-positive cocci w/ BCID-2 showing Staph epidermidis w/ mecA/C-methicillin resistance gene. Day # 1 of antimicrobial therapy. Plan Vancomycin * Current regimen: 1000 mg IV every 12 hours * Random level today (~7hr level), 14.5mcg/mL. Predicted to achieve a ssAUC of 432mg/L.hr with 63% probability. * Will optimize regimen to 1250mg IV q12h- predicted ssAUC, 536mg/L.hr. * Repeat level at steady state of new regimen. Pharmacy will continue to follow and will adjust dose/frequency as necessary. Thank you. Pharmacy has transitioned to AUC monitoring for vancomycin. AUC/HOSSEIN is the preferred PK/PD target and is associated with decreased risk of nephrotoxicity compared to traditional trough targets.
[2022-10-30] MEDS: VANCOMYCIN HCL 1,250 MG in SODIUM CHLORIDE 0.9% 250 ML IV SCH (16:31)
--- NOTE | 2022-10-30 19:47 | Hospitalist Progress Note ---
Date of Service October 30, 2022 Assessment & Plan (1) Respiratory distress: Plan: 72-year-old female with past med significant for type 2 diabetes, chronic respiratory failure with hypoxia on home oxygen 6 L all the time, chronic idiopathic pulmonary fibrosis, severe persistent asthma, hypertension, GERD, osteoporosis, seasonal allergies presents with respiratory distress Respiratory distress Acute on chronic respiratory failure At home she is on 6 L oxygen on admission on 9lts high flow -> currently on 6L at rest History of pulmonary fibrosis on pirfenidone Possible pulmonary fibrosis flare Recently finished prednisone taper Currently saturating okay on high flow but gets tired when talking or w/ minimal exertion On admission was started onIV Solu-Medrol 40 mg 3 times daily and nebs [id number] and as needed - changed to prednisone by pulm. however now steroid on hold d/t bacteremia Respiratory bio fire negative Procalcitonin negative Has leukocytosis but but recently was on steroids ABG okay CTA chest obtained on admission Pulmonary medicine consulted - obtained CT chest images from [facility], bloodwork KYLE and autoimmune work up from her outpt bottom presser. Hold prednisone for now. Monitoring telemetry Bacteremia blood cultx posit for Staph epi. Repeat blood cultx obtained. Echo - TTE - no vegetations seen ID consulted. Pt started on vancomycin, cont. for now. Elevated lactic acid mostly from hypoxia, poss. sepsis will monitor. Hypertension Continue losartan and metoprolol We will monitor Diabetes Hold metformin Insulin sliding scale We will follow blood sugars while on steroids. and HbA1c levels glycemic pharmacy consult. Hyperlipidemia on statin GERD on omeprazole DVT prophylaxis Lovenox Disposition telemetry floor Full code Admission and Anticipated Discharge Date Admission Date: October 28, 2022 Subjective Pt seen in follow up of resp. failure, hypoxia, hx of ILD, now w/ bacteremia Sitting up in bed in NAD, she is able to talk without much difficulty but with any minimal exertion she gets very short of breath and desaturating No chest pain. No fever, chills,no abd. pain. Pulmonary medicine consulted - obtain images CT chest from [facility], and blood work - KYLE and autoimmune work-up Review of Systems Review of Systems: All systems reviewed & are unremarkable except as noted in Subjective Physical Exam Physical Exam: General- elderly F in NAD Head- atraumatic Eyes- PERRL ENT- oropharynx clear Neck- supple, no JVD Lungs- clear to auscultation no wheezing, mild bibasilar cackles Heart- regular rhythm; no murmur, no gallop, Abdomen- normal bowel sounds, soft, nontender, no distension. Extremities- no pretibial edema, no erythema seen. Neuro- alert, oriented x 3; PERRL, no facial palsy; no dysarthria; non focal. Skin- warm & dry Results & Data Results & Data Vital Signs (Past 12 Hours) Vital Signs Temp Pulse Pulse Resp BP Pulse Ox O2 Del Method 10/30/22 19:30 74 19 96 Nasal Cannula 10/30/22 15:36 36.5 C 63 19 139/87 92 Nasal Cannula 10/30/22 16:02 66 10/30/22 14:11 79 17 95 Nasal Cannula 10/30/22 11:24 36.3 C L 72 21 160/82 H 95 Nasal Cannula 10/30/22 10:56 77 17 94 Nasal Cannula O2 Flow Rate 10/30/22 19:30 6 10/30/22 15:36 6 10/30/22 16:02 10/30/22 14:11 6 10/30/22 11:24 6 10/30/22 10:56 6 Laboratory Results 10/30/22 10/30/22 10/30/22 Range/Units 16:32 11:53 11:38 WBC (4.8-10.8) K/ul RBC (4.20-5.40) M/uL Hgb (12.0-16.0) g/dl Hct (37.0-47.0) % MCV (80.0-100.0) fL MCH (25.0-34.0) pg MCHC (32.0-36.0) g/dL RDW Std Deviation (36.4-46.3) fL RDW Coeff of Lynn (11.5-14.5) % Plt Count (130-400) K/uL MPV (9.4-12.4) fL Sodium (136-145) mmol/L Potassium (3.5-5.1) mmol/L Chloride (98-107) mmol/L Carbon Dioxide (21-32) mmol/L Anion Gap (3-11) BUN (6-23) mg/dl Creatinine (0.6-1.2) mg/dl Est Cr Clr Drug Dosing ml/min Est GFR ( Amer) ml/min Est GFR (Non-Af Amer) ml/min BUN/Creatinine Ratio (10-20) Glucose (70-99(Fasting)) mg/dl POC Glucose 92 132 H (70-99) mg/dl Calcium (8.6-10.3) mg/dl Phosphorus (2.5-4.9) mg/dl Magnesium (1.7-2.4) mg/dl B-Natriuretic Peptide (0-100) pg/ml Random Vancomycin 14.5 (10-20) mcg/ml Pneumocystis Source Pneumocyst jirovecii PCR 10/30/22 10/30/22 10/30/22 Range/Units 07:19 06:28 04:35 WBC (4.8-10.8) K/ul RBC (4.20-5.40) M/uL Hgb (12.0-16.0) g/dl Hct (37.0-47.0) % MCV (80.0-100.0) fL MCH (25.0-34.0) pg MCHC (32.0-36.0) g/dL RDW Std Deviation (36.4-46.3) fL RDW Coeff of Lynn (11.5-14.5) % Plt Count (130-400) K/uL MPV (9.4-12.4) fL Sodium 139 (136-145) mmol/L Potassium 4.1 (3.5-5.1) mmol/L Chloride 110 H (98-107) mmol/L Carbon Dioxide 24 (21-32) mmol/L Anion Gap 5 (3-11) BUN 25 H (6-23) mg/dl Creatinine 0.67 (0.6-1.2) mg/dl Est Cr Clr Drug Dosing 73.1 ml/min Est GFR ( Amer) 101.1 ml/min Est GFR (Non-Af Amer) 87.2 ml/min BUN/Creatinine Ratio 37.3 H (10-20) Glucose 86 (70-99(Fasting)) mg/dl POC Glucose 76 (70-99) mg/dl Calcium 9.0 (8.6-10.3) mg/dl Phosphorus 3.8 (2.5-4.9) mg/dl Magnesium 1.9 (1.7-2.4) mg/dl B-Natriuretic Peptide (0-100) pg/ml Random Vancomycin (10-20) mcg/ml Pneumocystis Source Pending Pneumocyst jirovecii PCR Pending 10/30/22 10/30/22 10/29/22 Range/Units 04:35 04:35 20:18 WBC 10.73 (4.8-10.8) K/ul RBC 3.49 L (4.20-5.40) M/uL Hgb 10.0 L (12.0-16.0) g/dl Hct 31.1 L (37.0-47.0) % MCV 89.1 (80.0-100.0) fL MCH 28.7 (25.0-34.0) pg MCHC 32.2 (32.0-36.0) g/dL RDW Std Deviation 52.3 H (36.4-46.3) fL RDW Coeff of Lynn 16.0 H (11.5-14.5) % Plt Count 230 (130-400) K/uL MPV 10.2 (9.4-12.4) fL Sodium (136-145) mmol/L Potassium (3.5-5.1) mmol/L Chloride (98-107) mmol/L Carbon Dioxide (21-32) mmol/L Anion Gap (3-11) BUN (6-23) mg/dl Creatinine (0.6-1.2) mg/dl Est Cr Clr Drug Dosing ml/min Est GFR ( Amer) ml/min Est GFR (Non-Af Amer) ml/min BUN/Creatinine Ratio (10-20) Glucose (70-99(Fasting)) mg/dl POC Glucose 213 H (70-99) mg/dl Calcium (8.6-10.3) mg/dl Phosphorus (2.5-4.9) mg/dl Magnesium (1.7-2.4) mg/dl B-Natriuretic Peptide 120 H (0-100) pg/ml Random Vancomycin (10-20) mcg/ml Pneumocystis Source Pneumocyst jirovecii PCR
[2022-10-30] MEDS: LANTUS PER UNIT CHARGE SC SCH (21:07)
[2022-10-31] MEDS ORDERED: VANCOMYCIN LEVEL ONE (04:30)
[2022-10-31] MEDS: VANCOMYCIN HCL 1,250 MG in SODIUM CHLORIDE 0.9% 250 ML IV SCH ×2 (06:30→16:39)
[2022-10-31] MEDS: ENOXAPARIN INJ 40 MG/0.4 ML SYR SQ SCH (06:53)
[2022-10-31] MEDS: ALBUT/IPRATROP 3MG/0.5MG NEB 3 ML VIAL NEB SCH ×4 (07:30→19:52)
--- NOTE | 2022-10-31 07:43 | Pulmonology Progress Note ---
Date of Service October 31, 2022 Assessment & Plan (1) Interstitial lung disease: (2) Respiratory failure: Chronicity: acute on chronic Respiratory failure complication: hypoxia Qualified Code(s): J96.21 - Acute and chronic respiratory failure with hypoxia (3) Hypoxemic respiratory failure, chronic: Plan Impression: 72-year-old female with history of interstitial lung disease. She was advised that she has IPF however she was never biopsied, we do not have access to her serological evaluation, and her CT scan is not typical. She does have evidence of subpleural fibrosis but it extends up to the apices. In addition, the patient was treated with steroids September 2022 with clinical response CTA chest 10/28/2022 personally reviewed: Increased reticular markings and traction bronchiectasis appreciated bilaterally especially in the upper lobes anteriorly Motion degraded study Cardiomegaly Minimal significant mediastinal lymphadenopathy HRCT on 07/2022 reviewed. No significant progression when compared. CTA 10/28/2022 of poor quality when evaluating lung parenchyma due to motion degradation Chart CT from July 2022 personally reviewed: Diffuse reticular marking appreciated, significant mosaicism on expiratory images Autoimmune work-up was negative which was ordered by primary transaction advisory services manager at [facility]. --Acute on chronic hypoxic respiratory failure Personally the CAT scan of the chest which she had done at significant motion degradation I clearly do not see any significant groundglass opacities Respiratory bio fire negative for everything on 10/27/2022 Continue with O2 supplementation to keep oxygen saturation between 90-92% --ILD Atypical UIP pattern Denies any personal history of any autoimmune disease Took steroid back in September with a 1 month taper. Clinically she did find benefit from it Continue with pantoprazole given ILD Continue with pirfenidone same dose Autoimmune work-up negative which was ordered by primary transaction advisory services manager, IgE was negative -- History of rheumatoid arthritis in sister Please note the above document was generated using voice recognition software. It may contain grammatical, syntax or spelling errors.Any formal questions or concerns about the content, text or information contained within the body of this dictation should be directly addressed to the provider for clarification. Admission and Anticipated Discharge Date Admission Date: October 28, 2022 Supervising Physician Co-Signing Physician Notes I saw and evaluated the patient with Floyd Michelle PA-C and agree with findings and plan as documented in the note. Patient seen and bedside. No acute distress, no adverse events overnight Patient was saturating 93% on 6 L nasal cannula at rest On exertion her oxygen does drop, she has been using 10 L on exertion right now Occasional cough with clear phlegm. No hemoptysis Constitutional: No acute distress HEENT: EOMI, PERRLA Respiratory system:Decreased air entry bilaterally, no wheeze, rhonchi, positive Velcro-like crackles appreciated bilaterally CVS: S1-S2 positive, no murmurs or gallops Abdomen: Soft, nontender, nondistended, positive bowel sounds x4 Extremities: +2 pulses bilaterally radialis/ dorsalis pedis,no cyanosis, no edema Neuro: Awake alert oriented x3 Psych: Normal mood and affect G/U: No Estes Plan: Follow-up sputum PJP PCR I again had a talk regarding patient's CODE STATUS and she would not want any intubation even if it was a question of life and CODE STATUS changed to DNR/DNI Repeat blood cultures from 10/29/2022 are negative. I will restart the patient on prednisone 40 mg on a daily basis Case was discussed with Dr. Brar Please note the above document was generated using voice recognition software. It may contain grammatical, syntax or spelling errors.Any formal questions or concerns about the content, text or information contained within the body of this dictation should be directly addressed to the provider for clarification. Subjective Patient was seen and evaluated by myself today. She had an uneventful night. She continues to require 10 L with ambulation and 6 L at rest which is her baseline. She describes a nonproductive cough. No chest pain or other concerning symptoms. Otherwise, the patient offers no complaints. Review of Systems Review of Systems: Unchanged from prior Physical Exam Physical Exam: VITAL SIGNS - Vital signs and nursing notes were reviewed. GENERAL - 72-year-old female appearing her stated age who is in no acute distress. Communicates well with provider and answers questions appropriately. LUNGS -Auscultation reveals diminished breath sounds without wheezes or rhonchi. Diffuse rales appreciated throughout all lung spaulding. CARDIAC - RRR with S1/S2. No murmur, rubs, or gallops appreciated. PSYCH - A&Ox3 and cooperates fully with examiner. Pt is very pleasant and interacts well with examiner. Skin: no rashes, warm and dry Lymphatic: no cervical or axillary lymphadenopathy Results & Data Results & Data Vital Signs (Past 12 Hours) Vital Signs Temp Pulse Resp BP BP Pulse Ox O2 Del Method 10/31/22 07:31 70 18 97 Nasal Cannula 10/31/22 04:03 36.6 C 62 18 116/71 97 Nasal Cannula 10/31/22 00:36 36.6 C 85 18 148/83 H 92 Nasal Cannula 10/30/22 19:59 36.3 C L 69 18 121/72 96 Nasal Cannula O2 Flow Rate 10/31/22 07:31 6 10/31/22 04:03 6 10/31/22 00:36 6 10/30/22 19:59 6 PG Care Time/CCT Total # of Minutes Spent Total Time Spent with Patient: Total time spent is greater than 50% in coordination of care (as documented) at patient's floor/unit and/or counseling patient: Coding Level of Care Code 70160 SUB INP/OBS CARE 3/50MIN Diagnoses Interstitial lung disease J84.9 Respiratory failure J96.21 Chronicity: acute on chronic Respiratory failure complication: hypoxia Hypoxemic respiratory failure, chronic J96.11
[2022-10-31] MEDS: FLUTICASONE/VILANTEROL 200/25MCG 14 PUFFS/INHALER INH SCH (08:36)
[2022-10-31] MEDS: METOPROLOL SUCC 25MG EXT REL TAB PO SCH (08:37)
[2022-10-31] MEDS: PANTOprazole 40 MG TAB PO SCH (08:37)
[2022-10-31] MEDS: ATORVASTATIN 10 MG TAB PO SCH (08:37)
[2022-10-31] MEDS: LOSARTAN POTASSIUM 50 MG TAB PO SCH (08:37)
[2022-10-31] MEDS: INSULIN ASPART PER UNIT CHARGE SC SCH ×4 (08:39→21:45)
--- NOTE | 2022-10-31 09:49 | Hospitalist Progress Note ---
Date of Service October 31, 2022 delayed entry date of service noted above Assessment & Plan (1) Respiratory distress: Plan: (1) Respiratory distress: Plan: per previous notes with addendum: 72-year-old female with past med significant for type 2 diabetes, chronic respiratory failure with hypoxia on home oxygen 6 L all the time, chronic idiopathic pulmonary fibrosis, severe persistent asthma, hypertension, GERD, osteoporosis, seasonal allergies presents with respiratory distress ILD Acute on chronic respiratory failure At home she is on 6 L oxygen on admission on 9lts high flow -> currently on 6L at rest History of pulmonary fibrosis on pirfenidone Possible pulmonary fibrosis flare Recently finished prednisone taper Currently saturating okay on high flow but gets tired when talking or w/ minimal exertion On admission was started onIV Solu-Medrol 40 mg 3 times daily and nebs [id number] and as needed - changed to prednisone by pulm. however now steroid on hold d/t bacteremia Respiratory bio fire negative Procalcitonin negative Has leukocytosis but but recently was on steroids ABG okay CTA chest obtained on admission Pulmonary medicine consulted - obtained CT chest images from [facility], bloodwork KYLE and autoimmune work up from her outpt cement mason maintenance. Hold prednisone for now. Monitoring telemetry 10/31 Pulm on board continue supportive care Bacteremia, Coag Neg Staph blood cultx posit for Staph epi. Repeat blood cultx obtained. Echo - TTE - no vegetations seen ID consulted. Pt started on vancomycin, cont. for now. 10/31 afebrile on IV Vanco Elevated lactic acid mostly from hypoxia, poss. sepsis will monitor. Hypertension Continue losartan and metoprolol We will monitor Diabetes Hold metformin Insulin sliding scale We will follow blood sugars while on steroids. and HbA1c levels glycemic pharmacy consult. Hyperlipidemia on statin GERD on omeprazole DVT prophylaxis Lovenox Disposition telemetry floor Full code Admission and Anticipated Discharge Date Admission Date: October 28, 2022 Subjective f fup for ILD, etc seen resting in bed, comfortable states breathing is about the same as yesterday has dyspnea on exertion has dry cough no fever/chills Review of Systems Review of Systems: all noted and negative except for above Physical Exam Physical Exam: General- oriented x 3, not in distress, speaks in sentences with no effort or accessory muscle use Eyes- anicteric Neck- no JVD Lungs- (+) diminished BS BL Heart- normal rate, regular rhythm; no murmurs Abdomen- normal bowel sounds, nondistended, soft, nontender Extremities- no pretibial edema, no calf tenderness Neuro- alert, oriented x 3; no gross focal neurologic deficits Skin- warm & dry Results & Data Results & Data Vital Signs (Past 12 Hours) Vital Signs Temp Pulse Resp BP BP Pulse Ox O2 Del Method 10/31/22 07:07 36.4 C L 55 L 21 120/75 97 High Flow Nasal Cannula 10/31/22 07:16 Nasal Cannula 10/31/22 07:31 70 18 97 Nasal Cannula 10/31/22 04:03 36.6 C 62 18 116/71 97 Nasal Cannula 10/31/22 00:36 36.6 C 85 18 148/83 H 92 Nasal Cannula O2 Flow Rate 10/31/22 07:07 6 10/31/22 07:16 6 10/31/22 07:31 6 10/31/22 04:03 6 10/31/22 00:36 6 all noted and reviewed including below
[2022-10-31] MEDS: predniSONE 20 MG TAB PO SCH (16:33)
[2022-10-31] MEDS: LANTUS PER UNIT CHARGE SC SCH (21:46)
[2022-11-01] MEDS: VANCOMYCIN HCL 1,250 MG in SODIUM CHLORIDE 0.9% 250 ML IV SCH (05:55)
[2022-11-01] MEDS: ENOXAPARIN INJ 40 MG/0.4 ML SYR SQ SCH (05:58)
[2022-11-01] MEDS: ALBUT/IPRATROP 3MG/0.5MG NEB 3 ML VIAL NEB SCH ×4 (07:01→19:19)
--- NOTE | 2022-11-01 07:55 | Pulmonology Progress Note ---
Date of Service November 01, 2022 Assessment & Plan (1) Interstitial lung disease: (2) Respiratory failure: Chronicity: acute on chronic Respiratory failure complication: hypoxia Qualified Code(s): J96.21 - Acute and chronic respiratory failure with hypoxia (3) Hypoxemic respiratory failure, chronic: Plan Impression: 72-year-old female with history of interstitial lung disease. She was advised that she has IPF however she was never biopsied, we do not have access to her serological evaluation, and her CT scan is not typical. She does have evidence of subpleural fibrosis but it extends up to the apices. In addition, the patient was treated with steroids September 2022 with clinical response CTA chest 10/28/2022 personally reviewed: Increased reticular markings and traction bronchiectasis appreciated bilaterally especially in the upper lobes anteriorly Motion degraded study Cardiomegaly Minimal significant mediastinal lymphadenopathy HRCT on 07/2022 reviewed. No significant progression when compared. CTA 10/28/2022 of poor quality when evaluating lung parenchyma due to motion degradation Chart CT from July 2022 personally reviewed: Diffuse reticular marking appreciated, significant mosaicism on expiratory images Autoimmune work-up was negative which was ordered by primary communication equipment repairer at [facility]. --Acute on chronic hypoxic respiratory failure Personally the CAT scan of the chest which she had done at significant motion degradation I clearly do not see any significant groundglass opacities Respiratory bio fire negative for everything on 10/27/2022 Continue with O2 supplementation to keep oxygen saturation between 90-92% Continue with incentive spirometry and encourage OOB as tolerated. --ILD Atypical UIP pattern Denies any personal history of any autoimmune disease Took steroid back in September with a 1 month taper. Clinically she did find benefit from it Continue with pantoprazole given ILD Continue with pirfenidone same dose Autoimmune work-up negative which was ordered by primary communication equipment repairer, IgE was negative -- History of rheumatoid arthritis in sister Please note the above document was generated using voice recognition software. It may contain grammatical, syntax or spelling errors.Any formal questions or concerns about the content, text or information contained within the body of this dictation should be directly addressed to the provider for clarification. Admission and Anticipated Discharge Date Admission Date: October 28, 2022 Supervising Physician Co-Signing Physician Notes I saw and evaluated the patient with Floyd Michelle PA-C and agree with findings and plan as documented in the note. Patient seen and examined at bedside. No acute distress, notable since overnight Patient was saturating 95% on 6 L, I went down to 5 L. Overall she says she is feeling better. Shortness of breath is good when she is sitting she does have to increase her oxygen when she is walking around Occasional cough with clear phlegm. No hemoptysis Constitutional: No acute distress HEENT: EOMI, PERRLA Respiratory system:Decreased air entry bilaterally, no wheeze, rhonchi, positive Velcro-like crackles appreciated bilaterally CVS: S1-S2 positive, no murmurs or gallops Abdomen: Soft, nontender, nondistended, positive bowel sounds x4 Extremities: +2 pulses bilaterally radialis/ dorsalis pedis,no cyanosis, no edema Neuro: Awake alert oriented x3 Psych: Normal mood and affect G/U: No Estes Plan: Follow-up sputum PJP PCR Continue with prednisone 40 mg for 5 days followed by 20mg for 5 followed by 10mg daily till she sees her communication equipment repairer as an outpatient No further recommendation from pulmonary perspective. We will sign off, please call directly with any questions Case was discussed with Dr. Brar Please note the above document was generated using voice recognition software. It may contain grammatical, syntax or spelling errors.Any formal questions or concerns about the content, text or information contained within the body of this dictation should be directly addressed to the provider for clarification. Subjective Patient was seen and evaluated at bedside. She reports that she slept well last night and is feeling well overall. She continues on her baseline 6 L nasal cannula with 10 L with any exertion. She has been using her incentive spirometer regularly. She reports no change in symptoms at this time. Review of Systems Review of Systems: Unchanged from prior Physical Exam Physical Exam: VITAL SIGNS - Vital signs and nursing notes were reviewed. GENERAL - 72-year-old female appearing her stated age who is in no acute distress. Communicates well with provider and answers questions appropriately. LUNGS -Auscultation reveals diminished breath sounds without wheezes or rhonchi. Diffuse rales appreciated throughout all lung spaulding. CARDIAC - RRR with S1/S2. No murmur, rubs, or gallops appreciated. PSYCH - A&Ox3 and cooperates fully with examiner. Pt is very pleasant and interacts well with examiner. Results & Data Results & Data Vital Signs (Past 12 Hours) Vital Signs Temp Pulse Pulse Resp BP Pulse Ox O2 Del Method 11/01/22 07:51 69 11/01/22 07:01 72 18 97 Nasal Cannula 11/01/22 03:59 36.4 C L 53 L 18 118/68 97 Nasal Cannula 10/31/22 21:30 81 10/31/22 21:30 High Flow Nasal Cannula 10/31/22 23:21 36.5 C 69 18 110/68 93 Nasal Cannula O2 Flow Rate 11/01/22 07:51 11/01/22 07:01 7 11/01/22 03:59 6 10/31/22 21:30 10/31/22 21:30 6 10/31/22 23:21 6 PG Care Time/CCT Total # of Minutes Spent Total Time Spent with Patient: Total time spent is greater than 50% in coordination of care (as documented) at patient's floor/unit and/or counseling patient: Coding Level of Care Code 26982 SUB INP/OBS CARE 2/35MIN Diagnoses Interstitial lung disease J84.9 Respiratory failure J96.21 Chronicity: acute on chronic Respiratory failure complication: hypoxia Hypoxemic respiratory failure, chronic J96.11
[2022-11-01] MEDS: predniSONE 20 MG TAB PO SCH (08:19)
[2022-11-01] MEDS: FLUTICASONE/VILANTEROL 200/25MCG 14 PUFFS/INHALER INH SCH (08:19)
[2022-11-01] MEDS: LOSARTAN POTASSIUM 50 MG TAB PO SCH (08:19)
[2022-11-01] MEDS: METOPROLOL SUCC 25MG EXT REL TAB PO SCH (08:19)
[2022-11-01] MEDS: PANTOprazole 40 MG TAB PO SCH (08:19)
[2022-11-01] MEDS: ATORVASTATIN 10 MG TAB PO SCH (08:19)
[2022-11-01] MEDS ORDERED: LANTUS PER UNIT CHARGE SC ONE (09:00)
[2022-11-01] MEDS: INSULIN ASPART PER UNIT CHARGE SC SCH ×4 (09:24→21:42)
--- NOTE | 2022-11-01 09:49 | XRay Report ---
XR chest 1V portable HISTORY: Shortness of breath. Follow-up. COMPARISON: Chest 10/27/2022. FINDINGS: The lung volumes and fibrotic changes again noted. No pneumothorax. No pleural effusions. T he cardiac silhouette remains mildly enlarged. Patchy densities within the periphery the right upper lobe and left lung base persist. This may be due to the chronic fibrotic change. A superimposed pneum onia would be difficult to exclude. IMPRESSION: 1. No significant change compared to the prior study. 2. Chronic fibrotic change again noted. 3. Patchy peripheral densities within the right upper lobe and left lung base favor chronic fibrotic change. A superimposed pneumonia would be difficult to exclude. ACT 112: Negative or not required by law. Electronically signed by: Ricardo Talamantes M.D. 11/01/2022 9:48 AM
--- NOTE | 2022-11-01 11:08 | Pharmacy Report ---
Pharmacy Glycemic Short Note 2 - Date of Service November 01, 2022 - Glycemic Short BSG Results (Last 24 hours): 10/31/22 10/31/22 10/31/22 11:59 17:05 19:56 POC Glucose 207 H 97 173 H 11/01/22 08:05 POC Glucose 142 H OUTPATIENT ANTIDIABETIC REGIMEN: * Metformin ER 2000 mg PO BID HbA1c: 7.1% (10/29/22) ASSESSMENT: 11/01: * Nicolasa received a total of 20 units of insulin yesterday, BSGs: 96, 207, 97, 173 mg/dL * Prednisone was resumed yesterday evening at 40 mg PO daily * Fasting BSG of 142 mg/dL this morning. Trending upward. Will increase Lantus dose. Previously 40 units of Lantus per day resulted in fasting hypoglycemia while on prednisone 20 mg BID. Will trial 10-15 units of Lantus per day. * Will tighten novolog to account for prednisone induced hyperglycemia. 10/30: * BSGs 627-997-44pu/dl the last 24h. Received 40 units of basal and 44 units of bolus insulin yesterday. * Tolerating diet, prednisone held. * Fasting BSG this AM was low, 76mg/dl, likely due to steroids being held after AM dose yesterday. Will hold basal this AM, lower dose of Lantus tonight per BSG scale. Novolog loosened. 10/29/22: * BSGs trended down nicely yesterday * Received 85 units of insulin (40 units of basal and 45 units of prandial/correctional bolus) * Prednisone 20 mg PO BID continues today * Will maintain aggressive Novolog parameters today * Fasting BSG of 163 mg/dL - will continue current basal 10/28/22: * 72 y/o F admitted for respiratory distress and history of interstitial lung disease. Patient also with history of Type 2 diabetes managed only on oral Metformin at home. She was recently on steroids for her chronic lung disease. Currently unknown A1c but ordered for tomorrow. * On admission her blood sugars was 174 mg/dl around midnight last night but trended up above 300 mg/dl early this AM. * Basal insulin 20 units was given around 6 AM and Novolog ordered with stress of 3 parameters, in addition to 5 units of regular IV insulin. * Prednisone 20 mg PO BID was started and first dose given this AM. * Pre-lunch BSG elevated at 311 mg/dl contributed by the steroid dose this morning also. * Additional 10 units of IV regular insulin given around noon, 10 units of basal added, and Novolog parameters tightened. * Anticipate BSGs to trend down by dinner time. * More basal insulin added for HS on a scale based on BSG. PLAN FOR INPATIENT GLYCEMIC CONTROL: * Hold outpatient oral diabetes medications * Basal insulin * Lantus 10 units SQ this morning * Lantus 5 units HS if BSG > 180mg/dL * Bolus insulin * NovoLog per scale ACHS or Q6hrs while NPO * Goal Range: Low 110 mg/dL - High 140 mg/dL * Correction Factor: 20 mg/dL/unit * Nutritional / Prandial insulin per carb ratio of 1 unit per 5 grams CHO consumed
[2022-11-01 12:34] LABS: BUN Creatinine Ratio 30.2 (10-20); Calcium 9.8 mg/dl (8.6-10.3); Creatinine Clr Calc Pharmacy 77.1 ml/min; Est GFR (African American) 103.1 ml/min
--- NOTE | 2022-11-01 14:39 | Pharmacy Report ---
Pharmacy PK ABX Note - Date of Service November 01, 2022 - Assessment and Plan Assessment 11/01: Day #5 of vancomycin for Staphylococcus epidermidis bacteremia. Repeat BC from 10/29 with no growth to date. 10/30: Day # 3 vancomycin. 10/27 blood cultures (+) Staph epidermidis X 2 in 3/4. Repeat cultures on 10/28 remain (+) for Staph epi X 2 in 1 bottle. Renal function stable. ID consulted. 10/28: 72 year old F receiving vancomycin for treatment of Staphylococcus epidermidis bacteremia w/ unclear source at this time. Pertinent PMH includes interstitial lung disease and T2DM. Pertinent microbiologic data includes: blood cultures x 2 (10/27) growing gram-positive cocci w/ BCID-2 showing Staph epidermidis w/ mecA/C-methicillin resistance gene. Day # 1 of antimicrobial therapy. Plan Vancomycin * Current regimen: 1250 mg IV every 12 hours * Random level today resulted at 18.5 mcg/mL. Predicted to achieve a ssAUC of 468 mg/L.hr with 86% probability. * Will continue current regimen for now. May repeat level in 48-72 hours. Pharmacy will continue to follow and will adjust dose/frequency as necessary. Thank you. Pharmacy has transitioned to AUC monitoring for vancomycin. AUC/HOSSEIN is the preferred PK/PD target and is associated with decreased risk of nephrotoxicity compared to traditional trough targets.
[2022-11-01] MEDS: DAPTOmycin 375 MG in SYRINGE 0 ML IV SCH (17:00)
--- NOTE | 2022-11-01 19:43 | Hospitalist Progress Note ---
Date of Service November 01, 2022 Assessment & Plan (1) Respiratory distress: Plan: per previous notes with addendum: 72-year-old female with past med significant for type 2 diabetes, chronic respiratory failure with hypoxia on home oxygen 6 L all the time, chronic idiopathic pulmonary fibrosis, severe persistent asthma, hypertension, GERD, osteoporosis, seasonal allergies presents with respiratory distress ILD Acute on chronic respiratory failure At home she is on 6 L oxygen on admission on 9lts high flow -> currently on 6L at rest History of pulmonary fibrosis on pirfenidone Possible pulmonary fibrosis flare Recently finished prednisone taper Currently saturating okay on high flow but gets tired when talking or w/ minimal exertion On admission was started onIV Solu-Medrol 40 mg 3 times daily and nebs [id number] and as needed - changed to prednisone by pulm. however now steroid on hold d/t bacteremia Respiratory bio fire negative Procalcitonin negative Has leukocytosis but but recently was on steroids ABG okay CTA chest obtained on admission Pulmonary medicine consulted - obtained CT chest images from [facility], bloodwork KYLE and autoimmune work up from her outpt call center rn. Hold prednisone for now. Monitoring telemetry 11/01 Prednisone 40mg po daily monitor Bacteremia, Coag Neg Staph blood cultx posit for Staph epi. Repeat blood cultx obtained. Echo - TTE - no vegetations seen ID consulted. Pt started on vancomycin, cont. for now. 11/01 discussed with [facility] ID recommend Daptomycin IV x 4 weeks since negative blood cultures Elevated lactic acid mostly from hypoxia, poss. sepsis will monitor. Hypertension Continue losartan and metoprolol We will monitor Diabetes Hold metformin Insulin sliding scale We will follow blood sugars while on steroids. and HbA1c levels glycemic pharmacy consult. Hyperlipidemia on statin GERD on omeprazole DVT prophylaxis Lovenox Disposition telemetry floor Full code Admission and Anticipated Discharge Date Admission Date: October 28, 2022 Subjective ff up for ILD, etc seen resting in bed,not in distress states she feels "decent" less dyspnea after washing up in the bathroom no cough, fever/chills no other symptoms Review of Systems Review of Systems: all noted and negative except for above Physical Exam Physical Exam: General- oriented x 3, not in distress, speaks in sentences with no effort or accessory muscle use Eyes- anicteric Neck- no JVD Lungs- clear BS R mild wheeze L Heart- normal rate, regular rhythm; no murmurs Abdomen- normal bowel sounds, nondistended, soft, no tenderness Extremities- no pretibial edema, no calf tenderness Neuro- alert, oriented x 3; no gross focal neurologic deficits Skin- warm & dry Results & Data Results & Data Vital Signs (Past 12 Hours) Vital Signs Temp Pulse Pulse Resp BP Pulse Ox O2 Del Method 11/01/22 19:20 70 18 96 Nasal Cannula 11/01/22 17:44 69 11/01/22 15:55 36.5 C 70 17 159/83 H 95 Nasal Cannula 11/01/22 15:30 74 18 96 Nasal Cannula 11/01/22 10:33 36.6 C 68 17 153/89 H 93 Nasal Cannula 11/01/22 08:30 Nasal Cannula 11/01/22 11:06 78 18 93 Nasal Cannula 11/01/22 08:20 36.4 C L 67 19 161/85 H 95 Nasal Cannula 11/01/22 07:51 69 O2 Flow Rate 11/01/22 19:20 6 11/01/22 17:44 11/01/22 15:55 5 11/01/22 15:30 6 11/01/22 10:33 5 11/01/22 08:30 6 11/01/22 11:06 6 11/01/22 08:20 6 11/01/22 07:51 all noted and reviewed including below
[2022-11-02] MEDS: LANTUS PER UNIT CHARGE SC SCH ×2 (04:49→08:26)
[2022-11-02] MEDS: ENOXAPARIN INJ 40 MG/0.4 ML SYR SQ SCH (05:53)
[2022-11-02] MEDS: ALBUT/IPRATROP 3MG/0.5MG NEB 3 ML VIAL NEB SCH ×4 (07:06→19:11)
[2022-11-02] MEDS: PANTOprazole 40 MG TAB PO SCH (08:21)
[2022-11-02] MEDS: FLUTICASONE/VILANTEROL 200/25MCG 14 PUFFS/INHALER INH SCH (08:21)
[2022-11-02] MEDS: METOPROLOL SUCC 25MG EXT REL TAB PO SCH (08:21)
[2022-11-02] MEDS: predniSONE 20 MG TAB PO SCH (08:21)
[2022-11-02] MEDS: LOSARTAN POTASSIUM 50 MG TAB PO SCH (08:21)
[2022-11-02] MEDS: INSULIN ASPART PER UNIT CHARGE SC SCH ×4 (08:26→22:39)
--- NOTE | 2022-11-02 09:14 | Pharmacy Report ---
Pharmacy Glycemic Short Note 2 - Date of Service November 02, 2022 - Glycemic Short BSG Results (Last 24 hours): 11/01/22 11/01/22 11/01/22 11:42 11:56 17:01 Glucose 180 H POC Glucose 179 H 172 H 11/01/22 11/02/22 20:46 07:57 Glucose POC Glucose 130 H 120 H OUTPATIENT ANTIDIABETIC REGIMEN: * Metformin ER 2000 mg PO BID HbA1c: 7.1% (10/29/22) ASSESSMENT: 11/02: * BSGs reasonably well-controlled yesterday, ranging 130-179 mg/dL w/ fasting BSG this morning of 120 mg/dL * Received 40 units of insulin yesterday (10 units of which were basal) * Continues on prednisone 40 mg PO daily * Do not anticipate any changes to glycemic regimen today 11/01: * Nicolasa received a total of 20 units of insulin yesterday, BSGs: 96, 207, 97, 173 mg/dL * Prednisone was resumed yesterday evening at 40 mg PO daily * Fasting BSG of 142 mg/dL this morning. Trending upward. Will increase Lantus dose. Previously 40 units of Lantus per day resulted in fasting hypoglycemia while on prednisone 20 mg BID. Will trial 10-15 units of Lantus per day. * Will tighten novolog to account for prednisone induced hyperglycemia. 10/30: * BSGs 125-663-63ha/dl the last 24h. Received 40 units of basal and 44 units of bolus insulin yesterday. * Tolerating diet, prednisone held. * Fasting BSG this AM was low, 76mg/dl, likely due to steroids being held after AM dose yesterday. Will hold basal this AM, lower dose of Lantus tonight per BSG scale. Novolog loosened. 10/29/22: * BSGs trended down nicely yesterday * Received 85 units of insulin (40 units of basal and 45 units of prandial/correctional bolus) * Prednisone 20 mg PO BID continues today * Will maintain aggressive Novolog parameters today * Fasting BSG of 163 mg/dL - will continue current basal 10/28/22: * 72 y/o F admitted for respiratory distress and history of interstitial lung disease. Patient also with history of Type 2 diabetes managed only on oral Metformin at home. She was recently on steroids for her chronic lung disease. Currently unknown A1c but ordered for tomorrow. * On admission her blood sugars was 174 mg/dl around midnight last night but trended up above 300 mg/dl early this AM. * Basal insulin 20 units was given around 6 AM and Novolog ordered with stress of 3 parameters, in addition to 5 units of regular IV insulin. * Prednisone 20 mg PO BID was started and first dose given this AM. * Pre-lunch BSG elevated at 311 mg/dl contributed by the steroid dose this morning also. * Additional 10 units of IV regular insulin given around noon, 10 units of basal added, and Novolog parameters tightened. * Anticipate BSGs to trend down by dinner time. * More basal insulin added for HS on a scale based on BSG. PLAN FOR INPATIENT GLYCEMIC CONTROL: * Hold outpatient oral diabetes medications * Basal insulin * Lantus 10 units SQ daily * Bolus insulin * NovoLog per scale ACHS or Q6hrs while NPO * Goal Range: Low 110 mg/dL - High 140 mg/dL * Correction Factor: 20 mg/dL/unit * Nutritional / Prandial insulin per carb ratio of 1 unit per 5 grams CHO consumed
[2022-11-02] MEDS: DAPTOmycin 375 MG in SYRINGE 0 ML IV SCH (15:39)
[2022-11-02 16:07] LABS: Pneumocystis jirovecii PCRQual NOT DETECTED; Pneumocystis jirovecii Source SPUTUM
--- NOTE | 2022-11-02 19:44 | Hospitalist Progress Note ---
Date of Service November 02, 2022 Assessment & Plan (1) Respiratory distress: Plan: per previous notes with addendum: 72-year-old female with past med significant for type 2 diabetes, chronic respiratory failure with hypoxia on home oxygen 6 L all the time, chronic idiopathic pulmonary fibrosis, severe persistent asthma, hypertension, GERD, osteoporosis, seasonal allergies presents with respiratory distress ILD Acute on chronic respiratory failure At home she is on 6 L oxygen on admission on 9lts high flow -> currently on 6L at rest History of pulmonary fibrosis on pirfenidone Possible pulmonary fibrosis flare Recently finished prednisone taper Currently saturating okay on high flow but gets tired when talking or w/ minimal exertion On admission was started onIV Solu-Medrol 40 mg 3 times daily and nebs [id number] and as needed - changed to prednisone by pulm. however now steroid on hold d/t bacteremia Respiratory bio fire negative Procalcitonin negative Has leukocytosis but but recently was on steroids ABG okay CTA chest obtained on admission Pulmonary medicine consulted - [facility], bloodwork KYLE and autoimmune work up from her outpt software design engineer. Hold prednisone for now. Monitoring telemetry 11/02 somewhat improving on 5 L Prednisone 40mg po daily monitor Bacteremia, Coag Neg Staph blood cultx posit for Staph epi. Repeat blood cultx obtained. Echo - TTE - no vegetations seen ID consulted. Pt started on vancomycin, cont. for now. 11/02 discussed with [facility] ID recommend Daptomycin IV x 4 weeks since negative blood cultures PICC Line ordered afebrile Elevated lactic acid mostly from hypoxia, poss. sepsis will monitor. Hypertension Continue losartan and metoprolol We will monitor Diabetes Hold metformin Insulin sliding scale We will follow blood sugars while on steroids. and HbA1c levels glycemic pharmacy consult. Hyperlipidemia on statin GERD on omeprazole DVT prophylaxis Lovenox Disposition telemetry floor Full code Admission and Anticipated Discharge Date Admission Date: October 28, 2022 Subjective ff up for ILD, bacteremia, etc seen resting in bed, comfortable breathing seems to be improving gradually no fever/chills no chest pain, dyspnea, palpitations, dizziness no other symptoms Review of Systems Review of Systems: all noted and negative except for above Physical Exam Physical Exam: General- oriented x 3, not in distress, speaks in sentences with no effort or accessory muscle use Eyes- anicteric Neck- no JVD Lungs- clear breath sounds bilaterally, no rales/wheezes Heart- normal rate, regular rhythm; no murmurs Abdomen- normal bowel sounds, nondistended, soft, nontender Extremities- no pretibial edema, no calf tenderness Neuro- alert, oriented x 3; no gross focal neurologic deficits Skin- warm & dry Results & Data Results & Data Vital Signs (Past 12 Hours) Vital Signs Temp Pulse Pulse Resp BP BP Pulse Ox 11/02/22 19:12 78 15 89 L 11/02/22 15:56 64 11/02/22 15:48 36.6 C 76 18 116/70 92 11/02/22 15:09 61 14 96 11/02/22 14:05 11/02/22 08:30 11/02/22 12:19 11/02/22 12:02 36.6 C 70 19 112/72 93 11/02/22 11:06 74 18 92 11/02/22 08:16 36.5 C 67 18 128/74 90 Pulse Ox Pulse Ox Pulse Ox O2 Del Method O2 Flow Rate O2 Flow Rate O2 Flow Rate 11/02/22 19:12 Nasal Cannula 6 11/02/22 15:56 11/02/22 15:48 Room Air 11/02/22 15:09 Nasal Cannula 5 11/02/22 14:05 95 98 76 L 6 10 11/02/22 08:30 Nasal Cannula 5 11/02/22 12:19 Nasal Cannula 4 11/02/22 12:02 Nasal Cannula 2 11/02/22 11:06 Nasal Cannula 6 11/02/22 08:16 Nasal Cannula 4 O2 Flow Rate 11/02/22 19:12 11/02/22 15:56 11/02/22 15:48 11/02/22 15:09 11/02/22 14:05 8 11/02/22 08:30 11/02/22 12:19 11/02/22 12:02 11/02/22 11:06 11/02/22 08:16 all noted and reviewed including below
[2022-11-03 05:35] LABS: Creatinine Clr Calc Pharmacy 61.8 ml/min; Est GFR (African American) 87.4 ml/min; Est GFR (Non-African American) 75.4 ml/min
[2022-11-03] MEDS: ENOXAPARIN INJ 40 MG/0.4 ML SYR SQ SCH (06:36)
[2022-11-03] MEDS: ALBUT/IPRATROP 3MG/0.5MG NEB 3 ML VIAL NEB SCH ×3 (07:10→20:28)
[2022-11-03] MEDS: INSULIN ASPART PER UNIT CHARGE SC SCH ×4 (08:46→20:57)
[2022-11-03] MEDS: LANTUS PER UNIT CHARGE SC SCH (08:46)
[2022-11-03] MEDS: FLUTICASONE/VILANTEROL 200/25MCG 14 PUFFS/INHALER INH SCH (08:47)
[2022-11-03] MEDS: PANTOprazole 40 MG TAB PO SCH (08:48)
[2022-11-03] MEDS: METOPROLOL SUCC 25MG EXT REL TAB PO SCH (08:48)
[2022-11-03] MEDS: predniSONE 20 MG TAB PO SCH (08:48)
[2022-11-03] MEDS: LOSARTAN POTASSIUM 50 MG TAB PO SCH (08:48)
--- NOTE | 2022-11-03 10:53 | Hospitalist Progress Note ---
Date of Service November 03, 2022 Assessment & Plan (1) Respiratory distress: Plan: per previous notes with addendum: 72-year-old female with past med significant for type 2 diabetes, chronic respiratory failure with hypoxia on home oxygen 6 L all the time, chronic idiopathic pulmonary fibrosis, severe persistent asthma, hypertension, GERD, osteoporosis, seasonal allergies presents with respiratory distress ILD Acute on chronic respiratory failure At home she is on 6 L oxygen on admission on 9lts high flow -> currently on 6L at rest History of pulmonary fibrosis on pirfenidone Possible pulmonary fibrosis flare Recently finished prednisone taper Currently saturating okay on high flow but gets tired when talking or w/ minimal exertion On admission was started onIV Solu-Medrol 40 mg 3 times daily and nebs [id number] and as needed - changed to prednisone by pulm. however now steroid on hold d/t bacteremia Respiratory bio fire negative Procalcitonin negative Has leukocytosis but but recently was on steroids ABG okay CTA chest obtained on admission Pulmonary medicine consulted - obtained CT chest images from [facility], bloodwork KYLE and autoimmune work up from her outpt warehouse logistics manager. Hold prednisone for now. Monitoring telemetry 11/03 Stable overall, gradually improving on 6 L Prednisone 40mg po daily Pulmonary service on board Bacteremia, Coag Neg Staph blood cultx posit for Staph epi. Repeat blood cultx obtained. Echo - TTE - no vegetations seen ID consulted. Pt started on vancomycin, cont. for now. 11/03 discussed with [facility] ID recommend Daptomycin IV x 4 weeks since negative blood cultures PICC Line placed afebrile Arrangements being made for home IV daptomycin Hypertension Continue losartan and metoprolol Stable Diabetes Hold metformin Insulin sliding scale We will follow blood sugars while on steroids. and HbA1c levels 93-119 Hyperlipidemia on statin GERD on omeprazole DVT prophylaxis Lovenox Disposition telemetry floor Full code Admission and Anticipated Discharge Date Admission Date: October 28, 2022 Subjective Follow-up for ILD, etc. Seen resting in bed, comfortable, not in distress On 6 L of oxygen States breathing is okay overall States she needs to increase her O2 supplement when she is ambulating Denies fevers or chills, nausea or vomiting No other new symptoms Review of Systems Review of Systems: all noted and negative except for above Physical Exam Physical Exam: General- oriented x 3, not in distress, speaks in sentences with no effort or accessory muscle use Eyes- anicteric Neck- no JVD Lungs-diminished but clear breath sounds bilaterally, no crackles or wheezing Heart- normal rate, regular rhythm; no murmurs Abdomen- normal bowel sounds, nondistended, soft, nontender Extremities- no pretibial edema, no calf tenderness Neuro- alert, oriented x 3; no gross focal neurologic deficits Skin- warm & dry Results & Data Results & Data Vital Signs (Past 12 Hours) Vital Signs Temp Pulse Pulse Resp BP Pulse Ox O2 Del Method 11/03/22 08:00 Nasal Cannula 11/03/22 08:00 45 L 11/03/22 08:09 36.3 C L 68 19 159/84 H 90 Nasal Cannula 11/03/22 07:13 65 18 93 Nasal Cannula 11/03/22 04:10 36.3 C L 49 L 20 124/69 97 Nasal Cannula 11/03/22 01:26 58 L 11/02/22 23:27 36.6 C 56 L 20 102/65 98 Nasal Cannula O2 Flow Rate 11/03/22 08:00 6 11/03/22 08:00 11/03/22 08:09 6 11/03/22 07:13 8 11/03/22 04:10 6.0 11/03/22 01:26 11/02/22 23:27 6.0 all noted and reviewed including below
[2022-11-03] MEDS: DAPTOmycin 375 MG in SYRINGE 0 ML IV SCH (17:04)
[2022-11-04] MEDS: ENOXAPARIN INJ 40 MG/0.4 ML SYR SQ SCH (06:20)
[2022-11-04] MEDS: ALBUT/IPRATROP 3MG/0.5MG NEB 3 ML VIAL NEB SCH ×2 (07:12→20:23)
[2022-11-04] MEDS: PANTOprazole 40 MG TAB PO SCH (09:06)
[2022-11-04] MEDS: LOSARTAN POTASSIUM 50 MG TAB PO SCH (09:06)
[2022-11-04] MEDS: METOPROLOL SUCC 25MG EXT REL TAB PO SCH (09:06)
[2022-11-04] MEDS: predniSONE 20 MG TAB PO SCH (09:06)
[2022-11-04] MEDS: FLUTICASONE/VILANTEROL 200/25MCG 14 PUFFS/INHALER INH SCH (09:07)
[2022-11-04] MEDS: INSULIN ASPART PER UNIT CHARGE SC SCH ×4 (09:19→20:54)
[2022-11-04] MEDS: LANTUS PER UNIT CHARGE SC SCH (09:19)
[2022-11-04] MEDS: DAPTOmycin 375 MG in SYRINGE 0 ML IV SCH (15:54)
--- NOTE | 2022-11-04 18:40 | Hospitalist Progress Note ---
Date of Service November 04, 2022 Assessment & Plan (1) Respiratory distress: Plan: per previous notes with addendum: 72-year-old female with past med significant for type 2 diabetes, chronic respiratory failure with hypoxia on home oxygen 6 L all the time, chronic idiopathic pulmonary fibrosis, severe persistent asthma, hypertension, GERD, osteoporosis, seasonal allergies presents with respiratory distress ILD Acute on chronic respiratory failure At home she is on 6 L oxygen on admission on 9lts high flow -> currently on 6L at rest History of pulmonary fibrosis on pirfenidone Possible pulmonary fibrosis flare Recently finished prednisone taper Currently saturating okay on high flow but gets tired when talking or w/ minimal exertion On admission was started onIV Solu-Medrol 40 mg 3 times daily and nebs [id number] and as needed - changed to prednisone by pulm. however now steroid on hold d/t bacteremia Respiratory bio fire negative Procalcitonin negative Has leukocytosis but but recently was on steroids ABG okay CTA chest obtained on admission Pulmonary medicine consulted - obtained CT chest images from [facility], bloodwork KYLE and autoimmune work up from her outpt production coordinator. Hold prednisone for now. Monitoring telemetry 11/04 Stable overall, gradually improving on 5 L Prednisone 40mg po daily Pulmonary service on board Bacteremia, Coag Neg Staph blood cultx posit for Staph epi. Repeat blood cultx obtained. Echo - TTE - no vegetations seen ID consulted. Pt started on vancomycin, cont. for now. 11/04 [facility] recommend Daptomycin IV x 4 weeks since negative blood cultures PICC Line placed afebrile Arrangements being made for home IV daptomycin Hypertension Continue losartan and metoprolol Stable Diabetes Hold metformin Insulin sliding scale We will follow blood sugars while on steroids. and HbA1c levels Hyperlipidemia on statin GERD on omeprazole DVT prophylaxis Lovenox Disposition telemetry floor Full code Admission and Anticipated Discharge Date Admission Date: October 28, 2022 Subjective Follow-up for ILD, bacteremia, etc. Seen resting in bed, sitting up, on 5 L of nasal cannula States she actually feels improved today Able to ambulate to the bathroom without increasing oxygen supplement Less cough, no chest pain, palpitations, dizziness No fevers or chills Appetite is good No other symptoms Review of Systems Review of Systems: all noted and negative except for above Physical Exam Physical Exam: General- oriented x 2, not in distress, speaks in sentences with no effort or accessory muscle use Eyes- anicteric Neck- no JVD Lungs-mild rales to bases,no crackles, no wheezing Heart- normal rate, regular rhythm; no murmurs Abdomen- normal bowel sounds, nondistended, soft, no tenderness Extremities- no pretibial edema, no calf tenderness Neuro- alert, oriented x 3; no gross focal neurologic deficits Skin- warm & dry Results & Data Results & Data Vital Signs (Past 12 Hours) Vital Signs Temp Pulse Pulse Resp BP Pulse Ox O2 Del Method 11/04/22 16:18 36.6 C 67 19 105/61 94 Nasal Cannula 11/04/22 15:43 58 L 11/04/22 11:22 36.5 C 55 L 19 128/79 97 Nasal Cannula 11/04/22 08:00 48 L 11/04/22 08:00 Nasal Cannula 11/04/22 07:56 36.3 C L 58 L 19 126/81 95 Nasal Cannula 11/04/22 07:18 73 20 98 Nasal Cannula O2 Flow Rate 11/04/22 16:18 6 11/04/22 15:43 11/04/22 11:22 6 11/04/22 08:00 11/04/22 08:00 6 11/04/22 07:56 6 11/04/22 07:18 6 all noted and reviewed including below
[2022-11-04] MEDS: ADVANCED PROBIOTIC 1250 MG CAPSULE PO SCH (20:55)
[2022-11-05] MEDS: ENOXAPARIN INJ 40 MG/0.4 ML SYR SQ SCH (06:20)
[2022-11-05] MEDS: ALBUT/IPRATROP 3MG/0.5MG NEB 3 ML VIAL NEB SCH (07:09)
[2022-11-05] MEDS: ADVANCED PROBIOTIC 1250 MG CAPSULE PO SCH (08:50)
[2022-11-05] MEDS: FLUTICASONE/VILANTEROL 200/25MCG 14 PUFFS/INHALER INH SCH (08:51)
[2022-11-05] MEDS: predniSONE 20 MG TAB PO SCH (08:51)
[2022-11-05] MEDS: LOSARTAN POTASSIUM 50 MG TAB PO SCH (08:52)
[2022-11-05] MEDS: PANTOprazole 40 MG TAB PO SCH (08:52)
[2022-11-05] MEDS: LANTUS PER UNIT CHARGE SC SCH (09:00)
[2022-11-05] MEDS: INSULIN ASPART PER UNIT CHARGE SC SCH ×2 (09:01→12:41)
[2022-11-05] MEDS: DAPTOmycin 375 MG in SYRINGE 0 ML IV SCH (12:36)
[2022-11-05] MEDS: METOPROLOL SUCC 25MG EXT REL TAB PO SCH (12:36)
--- NOTE | 2022-11-05 19:02 | Hospitalist Progress Note ---
Date of Service November 05, 2022 delayed entry date of service noted above Assessment & Plan (1) Respiratory distress: Plan: per previous notes with addendum: 72-year-old female with past med significant for type 2 diabetes, chronic respiratory failure with hypoxia on home oxygen 6 L all the time, chronic idiopathic pulmonary fibrosis, severe persistent asthma, hypertension, GERD, osteoporosis, seasonal allergies presents with respiratory distress ILD Acute on chronic respiratory failure At home she is on 6 L oxygen on admission on 9lts high flow -> currently on 6L at rest History of pulmonary fibrosis on pirfenidone Respiratory bio fire negative Procalcitonin negative Has leukocytosis but but recently was on steroids ABG okay CTA chest obtained on admission Pulmonary medicine consulted - obtained CT chest images from [facility], bloodwork KYLE and autoimmune work up from her outpt meter/relay craftsman [place] to be secondary to ILD flare 11/05 Stable overall, gradually improving on 5 L Prednisone 40mg po daily completed, discharge on 20mg daily x 5 days, then 10mg daily until ff up with Hydraulic Rockbreaker Operator Pulmonary service on board Bacteremia, Coag Neg Staph not [place] blood cultx posit for Coag Neg Staph not [place] Echo - TTE - no vegetations seen [facility] ID consulted recommend Daptomycin IV x 4 weeks since negative blood cultures PICC Line placed Arrangements made for home IV daptomycin weekly CBC, CMP, CPK while on Dapto IV Hypertension Continue losartan and metoprolol Stable Diabetes continue usual Regimen Hyperlipidemia on statin GERD on omeprazole dc/ home ff up with PCP in 1 week ff up with Pulm as scheduled Admission and Anticipated Discharge Date Admission Date: October 28, 2022 Subjective ff up for ILD, etc seen resting in bed, comfortable in good spirits feels fine overall no other new symptoms states she is ready for discharge Review of Systems Review of Systems: all noted and negative except for above Physical Exam Physical Exam: General- oriented x 3, not in distress, speaks in sentences with no effort or accessory muscle use Eyes- anicteric Neck- no JVD Lungs- clear breath sounds bilaterally, no crackles/wheezing Heart- normal rate, regular rhythm; no murmurs Abdomen- normal bowel sounds, nondistended, soft, nontender Extremities- no pretibial edema, no calf tenderness Neuro- alert, oriented x 3; no gross focal neurologic deficits Skin- warm & dry Results & Data Results & Data Vital Signs (Past 12 Hours) Vital Signs Temp Pulse Pulse Pulse Pulse Pulse Pulse 11/05/22 15:39 36.4 C L 61 64 11/05/22 13:53 105 H 99 H 101 H 96 H 11/05/22 11:51 36.4 C L 61 11/05/22 08:29 11/05/22 07:14 36.3 C L 55 L 11/05/22 07:10 61 Pulse Resp Resp Resp Resp Resp Resp 11/05/22 15:39 18 11/05/22 13:53 90 22 20 20 20 18 11/05/22 11:51 18 11/05/22 08:29 11/05/22 07:14 18 11/05/22 07:10 17 BP BP Pulse Ox Pulse Ox Pulse Ox Pulse Ox Pulse Ox 11/05/22 15:39 132/80 116/70 97 11/05/22 13:53 80 L 86 L 86 L 90 11/05/22 11:51 132/80 97 11/05/22 08:29 11/05/22 07:14 146/76 H 98 11/05/22 07:10 94 Pulse Ox O2 Del Method O2 Flow Rate O2 Flow Rate O2 Flow Rate O2 Flow Rate O2 Flow Rate 11/05/22 15:39 11/05/22 13:53 93 4 6 8 10 11/05/22 11:51 Nasal Cannula 5 11/05/22 08:29 Nasal Cannula 6 11/05/22 07:14 Nasal Cannula 5 11/05/22 07:10 Nasal Cannula 5 O2 Flow Rate 11/05/22 15:39 11/05/22 13:53 4 11/05/22 11:51 11/05/22 08:29 11/05/22 07:14 11/05/22 07:10 .all
--- NOTE | 2022-11-05 19:02 | Discharge Summary ---
Discharge Summary Date of Service November 05, 2022 delayed entry date of service noted above Notes For Next Care Provider Weekly CBC, CMP, CPK while on IV antibiotics Abnormal CT chest findings There is a 1.5 cm paratracheal lymph noted in addition to mediastinal lymph nodes which measure up to 2 cm, and hilar lymphadenopathy measures up to 1.7 cm. These may be infectious, inflammatory neoplastic. Please refer to full report in the Ordered Studies section above Further work up, management, and ff up as outpatient Medication Changes From Visit Prednisone-to be taken as follows, always take with a full stomach 20 mg daily x5 days, then 10 mg daily indefinitely until reevaluated by gimp tacker Daptomycin-intravenous antibiotic for bloodstream infection, x 25 days Albuterol-nebulizer treatment as needed for shortness of breath or wheezing Admission HPI Per Admitting Provider 72-year-old female with past med significant for type 2 diabetes, chronic respiratory failure with hypoxia on home oxygen 6 L all the time, chronic idiopathic pulmonary fibrosis, severe persistent asthma, hypertension, GERD, osteoporosis, seasonal allergies presents with respiratory distress. Patient says since last 1 week to 10 days getting more short of breath. Today walking 4 steps making her oxygen saturation go down when she decided to call EMS. For EMS she seemed saturating only 50 to 60% and she did not tolerate CPAP and was placed on 100% nonrebreather mask and was brought to the ER. In route she received Solu-Medrol. In the ER she was placed on high flow and she is saturating fine currently. Getting easily tired while talking. Patient states recently had a prednisone taper and completed the course last Saturday. Patient states when she came to the end of the taper she started to feel short of breath. Denies any fever. Has chronic cough. No fevers. No chest pain. Has some headache. No blurred visions. No earache or runny nose or sore throat. Appetite is okay. No dysphagia. No nausea. No abdominal pain. No swelling in the legs. Normal bowel and bladder movements. Past medical history as mentioned above Past surgical history cataract surgery, laparoscopic colectomy, Social history . No smoking, alcohol rare. Family history Sister had breast cancer, diabetes, hypertension, osteoporosis Brother had diabetes. Brother had prostate cancer. Father had prostate cancer. Mother had leukemia Admission Exam Per Admitting Provider General- Not in distress Head- atraumatic Eyes- PERRL. ENT- oropharynx clear Neck- supple, no JVD, . Lungs- clear to auscultation no wheezing, mild bibasilar cackles Heart- regular rhythm; no murmur, no gallop, Abdomen- normal bowel sounds, soft, nontender, no distension. Extremities- no pretibial edema, no erythema seen. Neuro- alert, oriented x 3; PERRL, no facial palsy; no dysarthria; non focal. Skin- warm & dry Principal Dx & Hospital Course #1 = Principal Diagnosis (1) Respiratory distress: per previous notes with addendum: 72-year-old female with past med significant for type 2 diabetes, chronic respiratory failure with hypoxia on home oxygen 6 L all the time, chronic idiopathic pulmonary fibrosis, severe persistent asthma, hypertension, GERD, osteoporosis, seasonal allergies presents with respiratory distress ILD Acute on chronic respiratory failure At home she is on 6 L oxygen on admission on 9lts high flow -> currently on 6L at rest History of pulmonary fibrosis on pirfenidone Possible pulmonary fibrosis flare Recently finished prednisone taper Currently saturating okay on high flow but gets tired when talking or w/ minimal exertion On admission was started onIV Solu-Medrol 40 mg 3 times daily and nebs [id number] and as needed - changed to prednisone by pulm. however now steroid on hold d/t bacteremia Respiratory bio fire negative Procalcitonin negative Has leukocytosis but but recently was on steroids ABG okay CTA chest obtained on admission: IMPRESSION: 1. No pulmonary embolus. 2. Diffuse bilateral airspace opacities may represent atypical infection and/or pulmonary edema. 3. There is a 1.5 cm paratracheal lymph noted in addition to mediastinal lymph nodes which measure up to 2 cm, and hilar lymphadenopathy measures up to 1.7 cm. These may be infectious, inflammatory neoplastic. 4. Aberrant right subclavian artery. 5. Emphysema. Pulmonary medicine consulted - obtained CT chest images from [facility], bloodwork KYLE and autoimmune work up from her outpt gimp tacker. Hold prednisone for now. Monitoring telemetry 11/04 Stable overall, gradually improving on 5 L Prednisone 40mg po daily Abnormal CT chest findings There is a 1.5 cm paratracheal lymph noted in addition to mediastinal lymph nodes which measure up to 2 cm, and hilar lymphadenopathy measures up to 1.7 cm. These may be infectious, inflammatory neoplastic. Please refer to full report in the Ordered Studies section above Further work up, management, and ff up as outpatient Bacteremia, Coag Neg Staph blood cultx posit for Staph epi. Repeat blood cultx obtained. Echo - TTE - no vegetations seen ID consulted. Pt started on vancomycin, cont. for now. 11/04 discussed with Di ID recommend Daptomycin IV x 4 weeks since negative blood cultures PICC Line placed afebrile Arrangements being made for home IV daptomycin Hypertension Continue losartan and metoprolol Stable Diabetes Hold metformin Insulin sliding scale We will follow blood sugars while on steroids. and HbA1c levels Hyperlipidemia on statin GERD on omeprazole DVT prophylaxis Lovenox Disposition telemetry floor Full code Discharge Exam General- oriented x 3, not in distress, speaks in sentences with no effort or accessory muscle use Eyes- anicteric Neck- no JVD Lungs- clear breath sounds bilaterally, no crackles/wheezing Heart- normal rate, regular rhythm; no murmurs Abdomen- normal bowel sounds, nondistended, soft, nontender Extremities- no pretibial edema, no calf tenderness Neuro- alert, oriented x 3; no gross focal neurologic deficits Skin- warm & dry Updated Medication List Medication Instructions Recorded Confirmed Type atorvastatin 10 mg tablet 10 mg PO QAM 10/28/22 10/28/22 History fluticasone 500 mcg-salmeterol 50 1 ea inhalation [facility] 10/28/22 10/28/22 History mcg/dose blistr powdr for inhalation (Advair Diskus) losartan 50 mg tablet 50 mg PO QAM 10/28/22 10/28/22 History metformin 500 mg tablet,extended 2,000 mg PO QPM 10/28/22 10/28/22 History release 24 hr metoprolol succinate 25 mg 25 mg PO QAM 10/28/22 10/28/22 History tablet,extended release 24 hr omeprazole 20 mg capsule,delayed 20 mg PO QAM 10/28/22 10/28/22 History release pirfenidone 801 mg tablet 801 mg PO TID 10/28/22 10/28/22 History daptomycin 350 mg intravenous 375 mg IV DAILY 25 days #25 ea 11/05/22 Rx solution ipratropium 0.5 mg-albuterol 3 mg 3 ml NEB Q4R PRN shortness of 11/05/22 Rx (2.5 mg base)/3 mL nebulization breath or wheezing #90 mL soln prednisone 10 mg tablet 10 mg PO DIRECTED #40 tabs 11/05/22 Rx Hospital Stay Data Consultations 10/28/22 00:56 ED Decision to Admit Stat 10/29/22 08:00 Consult Pulmonology Routine 10/29/22 08:26 Consult Infectious Diseases Routine Diagnostic Imagining Performed Laboratory Results WBC 10.73 K/ul (4.8-10.8) 10/30/22 04:35 RBC 3.49 M/uL (4.20-5.40) L 10/30/22 04:35 Hgb 10.0 g/dl (12.0-16.0) L 10/30/22 04:35 POC Hgb 14.3 g/dl (12.0-16.0) 10/27/22 23:46 Hct 31.1 % (37.0-47.0) L 10/30/22 04:35 POC Hct 42 % (37-47) 10/27/22 23:46 MCV 89.1 fL (80.0-100.0) 10/30/22 04:35 MCH 28.7 pg (25.0-34.0) 10/30/22 04:35 MCHC 32.2 g/dL (32.0-36.0) 10/30/22 04:35 RDW Std Deviation 52.3 fL (36.4-46.3) H 10/30/22 04:35 RDW Coeff of Lynn 16.0 % (11.5-14.5) H 10/30/22 04:35 Plt Count 230 K/uL (130-400) 10/30/22 04:35 MPV 10.2 fL (9.4-12.4) 10/30/22 04:35 Immature Gran % (Auto) 0.5 % 10/28/22 05:25 Neut % (Auto) 92.3 % 10/28/22 05:25 Lymph % (Auto) 5.9 % 10/28/22 05:25 [place] % (Auto) 0.9 % 10/28/22 05:25 Eos % (Auto) 0.0 % 10/28/22 05:25 Baso % (Auto) 0.4 % 10/28/22 05:25 Neut # (Auto) 10.18 K/uL (1.40-6.50) H 10/28/22 05:25 Lymph # (Auto) 0.65 K/uL (1.2-3.4) L 10/28/22 05:25 [place] # (Auto) 0.10 K/uL (0.11-0.59) L 10/28/22 05:25 Eos # (Auto) 0.00 K/uL (0-0.50) 10/28/22 05:25 Baso # (Auto) 0.04 K/uL (0-0.2) 10/28/22 05:25 Immature Gran # (Auto) 0.05 K/uL (0.01-0.20) 10/28/22 05:25 RBC Morphology Unremarkable 10/28/22 05:25 PT 12.4 Seconds (9.0-12.0) H 10/27/22 23:34 INR 1.1 (0.9-1.1) 10/27/22 23:34 APTT 26.5 Seconds (21.0-31.0) 10/27/22 23:34 PTT Ratio 0.9 10/27/22 23:34 POC pH 7.42 (7.35-7.45) 10/27/22 23:45 POC pCO2 33 mmHg (35-46) L 10/27/22 23:45 POC pO2 62 mmHg (80-95) L 10/27/22 23:45 POC HCO3 22 louis/L (19-24) 10/27/22 23:45 POC Total CO2 22 mmol/L (24-31) L 10/27/22 23:45 POC Base Excess -3.0 louis/L (-9-1.8) 10/27/22 23:45 POC ABG O2 Sat 92.0 % (90-95) 10/27/22 23:45 POC Sodium 140 mmol/L (135-144) 10/27/22 23:46 Sodium 138 mmol/L (136-145) 11/01/22 11:42 POC Potassium 4.0 mmol/L (3.3-5.0) 10/27/22 23:46 Potassium 4.0 mmol/L (3.5-5.1) 11/01/22 11:42 POC Chloride 103 mmol/L (101-112) 10/27/22 23:46 Chloride 104 mmol/L (98-107) 11/01/22 11:42 Carbon Dioxide 26 mmol/L (21-32) 11/01/22 11:42 POC Total CO2 22 mmol/L (24-31) L 10/27/22 23:46 Anion Gap 8 (3-11) 11/01/22 11:42 POC Anion Gap 19.0 mmol/L (16-25) 10/27/22 23:46 POC BUN 26 mg/dl (7-18) H 10/27/22 23:46 BUN 19 mg/dl (6-23) 11/01/22 11:42 Creatinine 0.78 mg/dl (0.6-1.2) 11/03/22 04:31 POC Creatinine 0.6 mg/dl (0.6-1.3) 10/27/22 23:46 Est Cr Clr Drug Dosing 61.8 ml/min 11/03/22 04:31 Est GFR ( Amer) 87.4 ml/min 11/03/22 04:31 Est GFR (Non-Af Amer) 75.4 ml/min 11/03/22 04:31 BUN/Creatinine Ratio 30.2 (10-20) H 11/01/22 11:42 Glucose 180 mg/dl (70-99(Fasting)) H 11/01/22 11:42 POC Glucose 147 mg/dl (70-99) H 11/05/22 12:02 POC Glucose (other) 184 mg/dl (70-99) H 10/27/22 23:46 Estimat Average Glucose 157 mg/dl 10/29/22 05:48 Hemoglobin A1c 7.1 % (4.5-5.6) H 10/29/22 05:48 Lactate 2.0 mmol/L (0.4-2.0) 10/28/22 07:50 Calcium 9.8 mg/dl (8.6-10.3) 11/01/22 11:42 POC Ioniz Calcium Estephanie 1.15 mmol/l (1.12-1.32) 10/27/22 23:46 Phosphorus 3.8 mg/dl (2.5-4.9) 10/30/22 04:35 Magnesium 1.9 mg/dl (1.7-2.4) 10/30/22 04:35 Total Bilirubin 0.7 mg/dl (0.2-1.0) 10/27/22 23:34 AST 31 U/L (13-39) 10/27/22 23:34 ALT 15 U/L (7-52) 10/27/22 23:34 Alkaline Phosphatase 72 U/L (34-104) 10/27/22 23:34 Troponin I High Sens 11.1 pg/ml (0-14) 10/27/22 23:34 B-Natriuretic Peptide 120 pg/ml (0-100) H 10/30/22 04:35 Total Protein 8.0 gm/dl (6.0-8.3) 10/27/22 23:34 Albumin 4.0 gm/dl (3.4-5.0) 10/27/22 23:34 Globulin 4.0 gm/dl (2.5-4.0) 10/27/22 23:34 Albumin/Globulin Ratio 1.0 (0.9-2) 10/27/22 23:34 Procalcitonin < 0.05 ng/ml (0-0.5) 10/27/22 23:34 Urine Color Dark Yellow 10/28/22 16:32 Urine Appearance Cloudy (Clear) A 10/28/22 16:32 Urine pH 5.0 (4.5-7.5) 10/28/22 16:32 Ur Specific [place] > 1.045 (1.000-1.030) H 10/28/22 16:32 Urine Protein 1+ (Negative) H 10/28/22 16:32 Urine Glucose (UA) 3+ (Negative) H 10/28/22 16:32 Urine Ketones Trace (Negative) H 10/28/22 16:32 Urine Blood Negative (Negative) 10/28/22 16:32 Urine Nitrite Negative (Negative) 10/28/22 16:32 Urine Bilirubin Negative (Negative) 10/28/22 16:32 Urine Urobilinogen Negative (Negative) 10/28/22 16:32 Ur Leukocyte Esterase Negative (Negative) 10/28/22 16:32 Urine WBC (Auto) 1-5 /hpf (0-5) 10/28/22 16:32 Urine RBC (Auto) 0-4 /hpf (0-4) 10/28/22 16:32 U Hyaline Cast (Auto) 5-10 /lpf (0-5) H 10/28/22 16:32 U Epithel Cells (Auto) >30 /lpf (0-5) H 10/28/22 16:32 Urine Bacteria (Auto) Negative (Negative) 10/28/22 16:32 Random Vancomycin 18.5 mcg/ml (10-20) 11/01/22 11:42 Adenovirus (PCR) Not Detected (NotDetected) 10/27/22 23:43 B. pertussis DNA (PCR) Not Detected (NotDetected) 10/27/22 23:43 B.parapertussis DNA PCR Not Detected (NotDetected) 10/27/22 23:43 C. pneumoniae DNA (PCR) Not Detected (NotDetected) 10/27/22 23:43 Coronavirus OC43 (PCR) Not Detected (NotDetected) 10/27/22 23:43 Coronavirus HKU1 (PCR) Not Detected (NotDetected) 10/27/22 23:43 Coronavirus 229E (PCR) Not Detected (NotDetected) 10/27/22 23:43 SARS-CoV-2 (PCR) Not Detected (NotDetected) 10/27/22 23:43 Coronavirus NL63 (PCR) Not Detected (NotDetected) 10/27/22 23:43 Human Metapneumovir PCR Not Detected (NotDetected) 10/27/22 23:43 Influenza Type A (PCR) Not Detected (NotDetected) 10/27/22 23:43 Influenza Type B (PCR) Not Detected (NotDetected) 10/27/22 23:43 M. pneumoniae (PCR) Not Detected (NotDetected) 10/27/22 23:43 Parainfluenza 1 (PCR) Not Detected (NotDetected) 10/27/22 23:43 Parainfluenza 2 (PCR) Not Detected (NotDetected) 10/27/22 23:43 Parainfluenza 3 (PCR) Not Detected (NotDetected) 10/27/22 23:43 Parainfluenza 4 (PCR) Not Detected (NotDetected) 10/27/22 23:43 Pneumocystis Source SPUTUM 10/30/22 06:28 Pneumocyst jirovecii PCR NOT DETECTED 10/30/22 06:28 RSV (PCR) Not Detected (NotDetected) 10/27/22 23:43 Entero/Rhino (PCR) Not Detected (NotDetected) 10/27/22 23:43 Staphylococcus sp PCR DETECTED (NotDetected) A 10/27/22 23:40 mecA/C-Methicil Resis Gene DETECTED (NotDetected) A 10/27/22 23:40 Staph epidermidis (PCR) DETECTED (NotDetected) A 10/27/22 23:40 Bld Cult ID Panel PCR See PCR Comment (NotDetected) 10/27/22 23:40 Impressions Chest CTA 10/27/22 23:51 Exam(s): CTA CHEST IV Amt: 118 cc's optiray 350 EXAM: CT Angiography Chest With Intravenous Contrast CLINICAL HISTORY: Hypoxia. TECHNIQUE: Axial computed tomographic angiography images of the chest with intravenous contrast. CTDI is 40.61 mGy and DLP is 1098.44 mGy-cm. Automated exposure control was utilized for the study. A dose lowering technique was utilized adhering to the principles of ALARA. MIP reconstructed images were created and reviewed. COMPARISON: No relevant prior studies available. FINDINGS: Pulmonary arteries: Unremarkable. No pulmonary embolus. Aorta: No acute findings. No aortic aneurysm or dissection. Great vessels of aortic arch: Aberrant right subclavian artery. Lungs: Diffuse bilateral airspace opacities may represent atypical infection and/or pulmonary edema. Emphysema. Pleural space: Unremarkable. No significant effusion. No pneumothorax. Heart: Unremarkable. No cardiomegaly. No significant pericardial effusion. No evidence of RV dysfunction. Mediastinum: There is a 1.5 cm paratracheal lymph noted in addition to mediastinal lymph nodes which measure up to 2 cm, and hilar lymphadenopathy measures up to 1.7 cm. Bones/joints: There are degenerative changes of the spine. No acute fracture. No dislocation. Soft tissues: Unremarkable. Lymph nodes: Unremarkable. No enlarged lymph nodes. IMPRESSION: 1. No pulmonary embolus. 2. Diffuse bilateral airspace opacities may represent atypical infection and/or pulmonary edema. 3. There is a 1.5 cm paratracheal lymph noted in addition to mediastinal lymph nodes which measure up to 2 cm, and hilar lymphadenopathy measures up to 1.7 cm. These may be infectious, inflammatory neoplastic. 4. Aberrant right subclavian artery. 5. Emphysema. Electronically signed by: Coty Brito MD 10/28/22 04:07 AM Chest X-Ray 11/01/22 07:00 XR chest 1V portable HISTORY: Shortness of breath. Follow-up. COMPARISON: Chest 10/27/2022. FINDINGS: The lung volumes and fibrotic changes again noted. No pneumothorax. No pleural effusions. The cardiac silhouette remains mildly enlarged. Patchy densities within the periphery the right upper lobe and left lung base persist. This may be due to the chronic fibrotic change. A superimposed pneumonia would be difficult to exclude. IMPRESSION: 1. No significant change compared to the prior study. 2. Chronic fibrotic change again noted. 3. Patchy peripheral densities within the right upper lobe and left lung base favor chronic fibrotic change. A superimposed pneumonia would be difficult to exclude. ACT 112: Negative or not required by law. Electronically signed by: Ricardo Talamantes M.D. 11/01/2022 9:48 AM Pending Results Patient Have Any Pending Studies at Discharge: No Discharge Instructions Given to Patient (Per Discharging Provider) PLEASE REFER TO YOUR NEW MEDICATION LIST AND FOLLOW INSTRUCTIONS CAREFULLY. YOUR NEW MEDICATIONS INCLUDE: Prednisone-to be taken as follows, always take with a full stomach 20 mg daily x5 days, then 10 mg daily indefinitely until reevaluated by gimp tacker Daptomycin-intravenous antibiotic for bloodstream infection Albuterol-nebulizer treatment as needed for shortness of breath or wheezing Please take a probiotic daily and include yogurt in your daily diet x2 months. Always stay well-hydrated. Use 2 L of oxygen while at rest and 10 L while ambulating. You need a weekly blood test-CBC and CMP while on IV antibiotics. PLEASE CALL YOUR PRIMARY CARE PHYSICIAN OR RETURN TO THE ER IF WITH WORSENING OF SYMPTOMS, INCLUDING Shortness of breath, cough, fevers or chills, sputum production, chest pain, etc. FOLLOW UP WITH PRIMARY CARE PHYSICIAN OUTLINED ABOVE. FOLLOW-UP WITH TRACK LAYING SUPERVISOR IN 1 TO 2 WEEKS. Total Time Total Time Spent Total Time Spent (In Minutes): > 30 minutes
== END 2022-11-05 16:26 | disposition home health service (06) | DRG 196 ==
LOC: ED 23:22 → 4W 10-28 03:06 → SUATTDRO 10-28 03:06 → 4W 10-28 04:27

== ENCOUNTER 2023-09-26 14:19 | Inpatient (IN) ==
[2023-09-26 14:53] LABS: iSTAT Creatinine 0.9 mg/dl (0.6-1.3); iSTAT Hemoglobin 13.3 g/dl (12.0-16.0); iSTAT Ionized Calcium 1.21 mmol/l (1.12-1.32); iSTAT Potassium 4.5 mmol/L (3.3-5.0)
[2023-09-26 14:59] LABS: Base Excess VBG -4.5 mEq/L; HCO3 VBG 21 mmol/L; Oxygen Saturation VBG 68.2 %; PCO2 VBG 40 mmHg (38-50); PO2 VBG 42 mmHg; pH VBG 7.33 (7.36-7.41)
[2023-09-26] MEDS: OPTIRAY 320 125ml IV ONE (15:04)
[2023-09-26 15:05] LABS: Hematocrit (blood only) 40.2 % (37.0-47.0); Hemoglobin 12.9 g/dl (12.0-16.0); Mean Corpuscular Hemoglobin 29.2 pg (25.0-34.0); Mean Corpuscular Hgb Conc 32.1 g/dL (32.0-36.0); Mean Platelet Volume 11.4 fL (9.4-12.4); Platelet Count 275 K/uL (130-400); RDW Coefficient of Variation 15.8 % (11.5-14.5); RDW Standard Deviation 52.5 fL (36.4-46.3); Red Blood Count 4.42 M/uL (4.20-5.40); White Blood Count 16.15 K/ul (4.8-10.8)
[2023-09-26] MEDS: methylPREDNISolone 125 MG/2 ML VIAL IV STA (15:05)
[2023-09-26] MEDS: ALBUT/IPRATROP 3MG/0.5MG NEB 3 ML VIAL NEB STA (15:06)
--- NOTE | 2023-09-26 15:06 | XRay Report ---
XR chest 1V portable CLINICAL HISTORY: Chest pain, nonspecific TECHNIQUE: Single frontal radiograph of the chest was obtained. Comparison: Comparison is made to chest radiograph 12/30/2022 FINDINGS: No lines and tubes are seen. Cardiomegaly is noted. The aortic arch is calcified. Reticular interstit ial opacities are seen. No evidence of pleural effusion or pneumothorax. IMPRESSION: No acute chest disease. Cardiomegaly is noted. ACT 112: Negative or not required by law. Electronically signed by: Krishan Loja M.D. 09/26/2023 3:05 PM
[2023-09-26 15:25] LABS: Basophils # (auto) 0.02 K/uL (0.00-0.20); Basophils % (auto) 0.1 %; Immature Granulocytes # (auto) 0.12 K/uL (0.01-0.20); Immature Granulocytes % (auto) 0.7 %; Lymphocytes # (auto) 0.61 K/uL (1.20-3.40); Lymphocytes % (auto) 3.8 %; Monocytes # (auto) 0.34 K/uL (0.11-0.59); Monocytes % (auto) 2.1 %; Neutrophils # (auto) 15.06 K/uL (1.40-6.50); Neutrophils % (auto) 93.3 %; Polychromasia 1+
--- NOTE | 2023-09-26 15:33 | CT Scan Report ---
CT ANGIOGRAM OF THE CHEST CLINICAL HISTORY: Dyspnea COMPARISON STUDY: Chest CT dated 12/30/2022. Chest x-ray dated 09/26/2023. TECHNIQUE: Following the IV administration of 119 cc of Optiray 320, CT angiogram of the chest was pe rformed from the upper abdomen to the thoracic inlet utilizing the pulmonary embolus protocol. Images are reviewed in the axial, sagittal, and coronal planes. 3-D MIPS images are created and assessed. I V contrast was administered without complication. A dose lowering technique was utilized adhering to the principles of ALARA. CT DOSE: 745.76 mGy.cm FINDINGS: Thyroid: Imaged portions of the thyroid gland are normal in size and attenuation. Thoracic aorta: There is atherosclerotic calcification of the thoracic aorta, which is normal in jo ann ronald and demonstrates 4-vessel variant arch anatomy. An aberrant right subclavian artery arises as a f ourth branch and courses posterior to the esophagus. No dissection is seen. Pulmonary vasculature: The pulmonary trunk is dilated, measuring 3.3 cm in diameter. This suggests pu lmonary artery hypertension. There are no filling defects identified in main, lobar, or segmental pul monary branches to suggest pulmonary embolus. Heart: The heart is enlarged without pericardial effusion. Lungs and pleural spaces: Again seen are changes of chronic interstitial/fibrotic lung disease. There is diffuse subpleural reticulation with intralobular septal thickening and groundglass consolidation . This shows a lower lobe predominance. Traction bronchiectasis is seen throughout both lungs. There are scattered foci of honeycombing. Foci of air trapping are seen bilaterally. No superimposed airspa ce consolidation or pleural effusion is identified. The trachea and central airways are clear. Scatte red calcified granulomas are observed. Mediastinum: Enlarged high right paratracheal lymph node on image #188 is similar to previous, measur ing 1.8 x 1.4 cm. A precarinal node is also unchanged, measuring up to 1.3 cm in short axis. Aixa: Mildly enlarged hilar nodes are similar to previous, measuring up to 13 mm in short axis. Axillae: There is no axillary lymphadenopathy. Upper abdomen: Gallstones are noted. There is a small hiatal hernia. Skeletal structures: The skeletal structures are osteopenic. Degenerative change is noted in the shou lders and spine. No lytic or blastic bony lesions are seen. IMPRESSION: 1. There is no evidence of pulmonary embolus in the main, lobar, or segmental pulmonary arteries. 2. Cardiomegaly with evidence of pulmonary artery hypertension. 3. Again seen are findings of chronic interstitial/fibrotic lung disease. 4. No superimposed air space consolidation or pleural effusion is identified. 5. Mildly enlarged mediastinal and hilar lymph nodes are similar to previous and likely related to ch ronic lung disease. 6. Cholelithiasis. 7. Additional findings as above. ACT 112: Negative or not required by law. Electronically signed by: Tj Calvert M.D. 09/26/2023 3:31 PM
[2023-09-26 15:44] LABS: Albumin Globulin Ratio 1.1 (0.9-2); BUN Creatinine Ratio 43.3 (10-20); Bilirubin,Total 0.5 mg/dl (0.2-1.0); Calcium 9.7 mg/dl (8.6-10.3); Creatinine Clr Calc Pharmacy 52.2 ml/min; Globulin 3.5 gm/dl (2.5-4.0); Potassium 4.5 mmol/L (3.5-5.1); Total Protein 7.5 gm/dl (6.0-8.3); Troponin I High Sensitivity 29.1 pg/ml (0-14)
[2023-09-26 15:53] LABS: Adenovirus PCR Not Detected (NotDetected); Bordetella parapertussis PCR Not Detected (NotDetected); Bordetella pertussis PCR Not Detected (NotDetected); Chlamydia pneumoniae PCR Not Detected (NotDetected); Coronavirus 229E PCR Not Detected (NotDetected); Coronavirus CoV-2 (COVID19)PCR Not Detected (NotDetected); Coronavirus HKU1 PCR Not Detected (NotDetected); Coronavirus NL63 PCR Not Detected (NotDetected); Coronavirus OC43PCR Not Detected (NotDetected); Human Metapneumovirus PCR Not Detected (NotDetected); Influenza A PCR Not Detected (NotDetected); Influenza B PCR Not Detected (NotDetected); Mycoplasma pneumoniae PCR Not Detected (NotDetected); Parainfluenza Virus 1 PCR Not Detected (NotDetected); Parainfluenza Virus 2 PCR Not Detected (NotDetected); Parainfluenza Virus 3 PCR Not Detected (NotDetected); Parainfluenza Virus 4 PCR Not Detected (NotDetected); Respiratory Syncytial VirusPCR Not Detected (NotDetected); Rhinovirus/Enterovirus PCR Not Detected (NotDetected)
[2023-09-26] MEDS: ASPIRIN 81 MG CHEW PO STA (16:14)
--- NOTE | 2023-09-26 16:15 | History & Physical Report ---
Date of Service September 26, 2023 Assessment & Plan (1) Acute on chronic respiratory failure with hypoxia: (2) Elevated troponin: Plan Nicolasa Gomez is a 73y/o F with PMHx of DM type II, chronic respiratory failure with hypoxia [oxygen dependent; 10L at rest, 12L with activity], dyslipidemia, idiopathic pulmonary fibrosis, interstitial lung disease, HTN, pulmonary hypertension, GERD and other problems listed below who presented to the ED for evaluation secondary to SOB and exertional chest tightness and was found to have acute on chronic respiratory failure with hypoxia. Acute on Chronic Respiratory Failure w/ Hypoxia H/O Interstitial Lung Disease, Idiopathic Pulmonary Fibrosis Pt was seeing pulmonology today over at [facility] for her Fasenra shot; However, she subsequently was referred to ED 2/2 SOB and exertional chest tightness. 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 Finch]. Reports using 14L via nasal cannula at baseline, both w/ rest and exertion. Tachycardic + tachypneic on presentation, RVP negative. O2 sat was 68% on arrival; O2 sat improved to 94% w/ 15L via non-rebreather. CXR w/ no acute chest disease. Chest CTA showing no acute PE, but does reveal the following: i. Cardiomegaly w/ evidence of pulmonary artery hypertension. ii. Findings of chronic interstitial/fibrotic lung disease. ii. Mildly enlarged mediastinal and hilar lymph nodes likely related to chronic lung disease. Continue supplemental oxygen support, pulmonology consulted. 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 Leukocytosis more than likely 2/2 steroid use, procalcitonin negative. She received 60mg IV Solu-Medrol in ED. Will continue w/ IV 40mg Solu-Medrol daily. 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 Starting pt on po doxycycline 100mg BID. 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 Pulmonary toilet w/ scheduled nebs, incentive spirometer and flutter valve. CBC, CMP, mag and phos in AM - follow results. Pt has been seeing [facility] as an outpatient. Will place palliative care consult, appreciate their recommendations/input. Elevated Troponin Initial trop 29.1, repeat trop 31.8. Pt c/o chest "tightness" w/ exertion. Admitting EKG w/ no acute ischemic changes. Third trop ~ 5PM was 29.2 [downtrending]. Continue to trend trop - follow results. Will repeat EKG in AM x 2 days. Echo and lipid panel pending - follow results. More than likely 2/2 demand ischemia. 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 Closely monitor BP w/ continuous cardiac monitoring. DM Type II BSG 327 on admission - Hgb A1c 7.8 on 07/25/23. 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 BSG checks ACHS, glycemic control pharmacy consulted. 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 DVT Prophylaxis: SQ Lovenox Code Status: CONDITIONAL CODE - Patient does NOT want to be intubated, but she is OK with chest compressions. PCP: Rizwana Antunez MD Disposition: Admit to PCU/Telemetry Patient seen in collaboration with Dr. Doll. Please see addendum. I spent a total of 75 minutes coordinating, documenting, and providing care for this patient excluding time spent in the performance of separately billed services. This included personally reviewing all current laboratories and imaging studies, medical reconciliation, outpatient chart review and discussion with specialists. This chart was completed in part utilizing Speech Voice Recognition Software. Grammatical errors, random word insertions, pronoun errors, and incomplete sentences are an occasional consequence of this system due to software limitations, ambient noise, and hardware issues. Any formal questions or concerns about the content, text, or information contained within the body of this dictation should be directly addressed to the provider for clarification. History of Present Illness Chief Complaint: SOB, Exertional Chest Tightness Primary Care Provider: Rizwana Antunez MD Nicolasa Gomez is a 73y/o F with PMHx of DM type II, chronic respiratory failure with hypoxia [oxygen dependent; 10L at rest, 12L with activity], dyslipidemia, idiopathic pulmonary fibrosis, interstitial lung disease, HTN, pulmonary hypertension, GERD and other problems listed below who presented to the ED for evaluation secondary to SOB and exertional chest tightness. History obtained from patient and associated chart review. Patient seen at bedside with Dr. Doll. Patient was at [facility] office today over at [facility] for her Fasenra shot; however, the patient was referred here due to hypoxia. Notices that she is "going low" from the bed to the bathroom. Used her nebulizer this morning; has been using her nebulizer more frequently - multiple times a day. Feels she "cannot do anything" because of her respiratory disease. She was previously evaluated by [facility] Transplant team in March, but was denied the opportunity of a lung transplant secondary to her body habitus and comorbidities. Patient is taking 20mg oral prednisone daily and has been doing so since around May or June - she cannot remember exactly. Oxygen saturation on monitor dropped to 88% during our conversation. Her breathing has significantly worsened over the past 2 weeks. She has been producing clear, somewhat yellow nasal drainage. States her chest feels "tight" with movement and her HR goes up rather high with movement. She denies any lightheadedness or dizziness with movement. Patient expresses higher value over quality of life versus quantity of life. Patient has been seeing the [facility] team. Patient expresses extreme frustration and sadness with having to work so hard to breath. She does see a counselor, which she reports has helped her mental health. Patient would not want to be intubated, but is agreeable to CPR. Allergies Allergy/AdvReac Type Severity Reaction Status Date / Time lisinopril Allergy Cough Verified 10/28/22 00:10 Home Medications Medication Instructions Recorded Confirmed Type metformin 500 mg tablet,extended 1,000 mg PO QPM 10/28/22 09/26/23 History release 24 hr omeprazole 20 mg capsule,delayed 20 mg PO QAM 10/28/22 09/26/23 History release pirfenidone 801 mg tablet 801 mg PO TID 10/28/22 09/26/23 History benralizumab 30 mg/mL subcutaneous 30 mg subcut UD 12/30/22 09/26/23 History syringe (Fasenra) atorvastatin 10 mg tablet 10 mg PO DAILY 09/26/23 09/26/23 History azithromycin 250 mg tablet 250 mg PO 3XWK 09/26/23 09/26/23 History budesonide 160 mcg-glycopyr 9 2 inh inhalation BID 09/26/23 09/26/23 History mcg-formot 4.8 mcg/actuation HFA inhaler (Breztri Aerosphere) empagliflozin 10 mg tablet 10 mg PO DAILY 09/26/23 09/26/23 History (Jardiance) ipratropium 0.5 mg-albuterol 3 mg 3 ml NEB Q6 PRN shortness of 09/26/23 09/26/23 History (2.5 mg base)/3 mL nebulization breath or wheezing soln loratadine 10 mg tablet 10 mg PO DAILY PRN Allergy Symptoms 09/26/23 09/26/23 History losartan 25 mg tablet 25 mg PO DAILY 09/26/23 09/26/23 History prednisone 20 mg tablet 20 mg PO DAILY 09/26/23 09/26/23 History Past Med/Surg History Problem List Elevated troponin Acute on chronic respiratory failure with hypoxia Shortness of breath (Acute) Heart block atrioventricular Palliative care encounter DM2 (diabetes mellitus, type 2) Severe persistent asthma Acute and chronic respiratory failure with hypoxia Hypoxia (Acute) Pulmonary fibrosis (Acute) CHF exacerbation (Acute) Hypoxemic respiratory failure, chronic Respiratory distress Respiratory failure (Acute) Elevated lactic acid level (Acute) Medical History No pertinent family history Asthma Interstitial lung disease IPF (idiopathic pulmonary fibrosis) Surgical History No pertinent past surgical history Family History Other Hypertension Social History Smoking Status: Never smoker Second Hand Exposure: No; Do You Dip or Chew Tobacco: No; Hx Alcohol Use: Yes Alcohol type: beer, wine and hard liquor Hx Substance Use: No Preferred Language: Setswana Communication Ability: Effective Cherry Grower Required: No Beliefs That Will Affect Care: None Current Living Situation: Spouse Other Information That Helps Us Care for You: No Feels Safe at Home: Yes Safety Concerns: Feels Safe At This Time Assistive Devices: Wheelchair Assistive Devices Comment: wheelchair for long distance amb Review of Systems Review of Systems: At least ten systems reviewed and negative, except as noted in the HPI. Physical Exam Physical Exam: Please refer to Dr. Doll's addendum for physical examination findings. Results & Data Results & Data Vital Signs (Past 12 Hours) Vital Signs Temp Pulse Resp BP Pulse Ox O2 Del Method O2 Flow Rate 09/26/23 15:17 Non-rebreather 09/26/23 15:17 Non-rebreather 15 09/26/23 14:44 102 H 09/26/23 14:20 36.1 C L 118 H 20 152/92 H 68 L Nasal Cannula 14 Laboratory Results Short CBC 09/26/23 Range/Units 14:43 WBC 16.15 H (4.8-10.8) K/ul Hgb 12.9 (12.0-16.0) g/dl Hct 40.2 (37.0-47.0) % Plt Count 275 (130-400) K/uL BMP 09/26/23 14:43 Sodium 140 Potassium 4.5 Chloride 105 Carbon Dioxide 22 BUN 39 H Creatinine 0.90 Glucose 327 H* Calcium 9.7 Liver Function 09/26/23 Range/Units 14:43 Total Bilirubin 0.5 (0.2-1.0) mg/dl AST 21 (13-39) U/L ALT 31 (7-52) U/L Alkaline Phosphatase 50 (34-104) U/L Albumin 4.0 (3.4-5.0) gm/dl Diagnostic Findings Chest CTA 09/26/23 14:28 CT ANGIOGRAM OF THE CHEST CLINICAL HISTORY: Dyspnea COMPARISON STUDY: Chest CT dated 12/30/2022. Chest x-ray dated 09/26/2023. TECHNIQUE: Following the IV administration of 119 cc of Optiray 320, CT angiogram of the chest was performed from the upper abdomen to the thoracic inlet utilizing the pulmonary embolus protocol. Images are reviewed in the axial, sagittal, and coronal planes. 3-D MIPS images are created and assessed. IV contrast was administered without complication. A dose lowering technique was utilized adhering to the principles of ALARA. CT DOSE: 745.76 mGy.cm FINDINGS: Thyroid: Imaged portions of the thyroid gland are normal in size and attenuation. Thoracic aorta: There is atherosclerotic calcification of the thoracic aorta, which is normal in caliber and demonstrates 4-vessel variant arch anatomy. 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 No dissection is seen. Pulmonary vasculature: The pulmonary trunk is dilated, measuring 3.3 cm in diameter. This suggests pulmonary artery hypertension. There are no filling defects identified in main, lobar, or segmental pulmonary branches to suggest pulmonary embolus. Heart: The heart is enlarged without pericardial effusion. Lungs and pleural spaces: Again seen are changes of chronic interstitial/fibrotic lung disease. There is diffuse subpleural reticulation with intralobular septal thickening and groundglass consolidation. This shows a lower lobe predominance. Traction bronchiectasis is seen throughout both lungs. There are scattered foci of honeycombing. Foci of air trapping are seen bilaterally. No superimposed airspace consolidation or pleural effusion is identified. The trachea and central airways are clear. Scattered calcified granulomas are observed. Mediastinum: Enlarged high right paratracheal lymph node on image #188 is similar to previous, measuring 1.8 x 1.4 cm. A precarinal node is also unchanged, measuring up to 1.3 cm in short axis. Aixa: Mildly enlarged hilar nodes are similar to previous, measuring up to 13 mm in short axis. Axillae: There is no axillary lymphadenopathy. Upper abdomen: Gallstones are noted. There is a small hiatal hernia. Skeletal structures: The skeletal structures are osteopenic. Degenerative change is noted in the shoulders and spine. No lytic or blastic bony lesions are seen. IMPRESSION: 1. There is no evidence of pulmonary embolus in the main, lobar, or segmental pulmonary arteries. 2. Cardiomegaly with evidence of pulmonary artery hypertension. 3. Again seen are findings of chronic interstitial/fibrotic lung disease. 4. No superimposed air space consolidation or pleural effusion is identified. 5. Mildly enlarged mediastinal and hilar lymph nodes are similar to previous and likely related to chronic lung disease. 6. Cholelithiasis. 7. Additional findings as above. ACT 112: Negative or not required by law. Electronically signed by: Tj Calvert M.D. 09/26/2023 3:31 PM Chest X-Ray 09/26/23 14:28 XR chest 1V portable CLINICAL HISTORY: Chest pain, nonspecific TECHNIQUE: Single frontal radiograph of the chest was obtained. Comparison: Comparison is made to chest radiograph 12/30/2022 FINDINGS: No lines and tubes are seen. Cardiomegaly is noted. The aortic arch is calcified. Reticular interstitial opacities are seen. No evidence of pleural effusion or pneumothorax. IMPRESSION: No acute chest disease. Cardiomegaly is noted. ACT 112: Negative or not required by law. Electronically signed by: Krishan Loja M.D. 09/26/2023 3:05 PM Medications Administered Discontinued Medications Albuterol (Albut/Ipratrop 3mg/0.5mg Neb 3 Ml Vial) 9 ml NEB NOW STA; Protocol Stop: 09/26/23 14:31 Last Admin: 09/26/23 15:06 Dose: 9 ml Documented By: ANIYA Aspirin (Aspirin 81 Mg Chew) 81 mg PO NOW STA Stop: 09/26/23 16:11 Last Admin: 09/26/23 16:14 Dose: 81 mg Documented By: DAREN Ioversol (Optiray 320 125ml) 119 ml IV ONCE ONE Stop: 09/26/23 15:03 Last Admin: 09/26/23 15:04 Dose: 119 ml Documented By: BOB Methylprednisolone (Methylprednisolone 125 Mg/2 Ml Vial) 60 mg IV NOW STA Stop: 09/26/23 14:31 Last Admin: 09/26/23 15:05 Dose: 60 mg Documented By: ANIYA Code Status & VTE Plan Code Status CONDITIONAL CODE - Patient agreeable to chest compressions, but NO INTUBATION. VTE Prophylaxis Plan VTE Prophylaxis will be ordered: Yes Supervising Physician Co-Signing Physician Notes Patient is a 73-year-old female with history of interstitial lung disease, steroid-dependent chronic respiratory failure with hypoxia currently requiring 14 L of supplemental oxygen with rest and activity, pulmonary fibrosis, asthma, diabetes mellitus, pulmonary hypertension, CHF, heart block and other medical problems presents with history of worsening shortness of breath and exertional chest tightness/congestion. Patient follows with pulmonology as outpatient. 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 Patient admits to have intermittent ongoing cough for the last several days with clear expe ctoration. She denied any fever, chills. Also denied any hemoptysis. Her symptoms have been gradually worsening over the past 2 weeks. She was placed on nonrebreather while in ED, later transitioned to high flow oxygen. I personally reviewed blood work and imaging studies. Noted leukocytosis 16.15 K, glucose 227, mild troponin elevation, normal procalcitonin. BioFire negative. CTA showed no PE, showed findings suggestive of cardiomegaly with pulmonary hypertension, chronic fibrotic lung disease, mildly enlarged mediastinal and hilar lymph nodes. EKG showed normal sinus rhythm, nonspecific ST-T wave changes, QTc 415. Physical Exam: Vitals signs as noted above General Appearance:Moderately built and nourished, mild distress Head: normocephalic, Atraumatic Eyes: normal inspection, EOMI Neck: supple, Trachea midline Respiratory/Chest: Decreased breath sounds, B/L basal crackles, no wheezes,+ accessory muscle use Cardiovascular: S1, S2, No murmur Abdomen/GI:Soft, Non tender, Bowel sounds present Extremities/Musculoskeletal:normal inspection, no edema Neurologic/Psych:AAOX3, grossly no focal neurological deficits Skin: normal color, warm Acute on chronic respiratory failure with hypoxia Chronic oxygen/steroid dependency Interstitial lung disease Pulmonary hypertension Sinus tachycardia Mild troponin elevation likely demand ischemia secondary to above Diabetes mellitus type 2 Continue nebs, IV Solu-Medrol, doxycycline Continue home inhalers Supplemental oxygen Pulmonology consulted Check resting echo, trend troponin Pulmonary hygiene Received aspirin in ED Check lipid panel Poor prognosis Will consult palliative care to address goals of care Insulin while hospitalized for management of diabetes mellitus I personally interviewed and examined at bedside. Patient's care is coordinated with Clara Vázquez. I have reviewed the advanced practitioner's documentation, and I agree with plan of care. Please refer to the documentation above for details of patient's presentation and for discussion of other issues. I spent a total [id number] coordinating, documenting, and providing care for this patient excluding time spent in the performance of separately billed services.
--- NOTE | 2023-09-26 16:44 | Emergency Department Note ---
Impression & Plan Respiratory failure, Hypoxia, Pulmonary fibrosis, Shortness of breath ED Provider Note NAME: MARLYN CASTILLO AGE: 73 SEX: F : 1950 ARRIVES VIA: Walk-In INFORMANT: Patient ED PROVIDER(S): Hernandez Hackett DO CHIEF COMPLAINT: shortness of breath HPI: Patient is a 73-year-old female with a past medical history of severe persistent asthma, interstitial lung disease, pulmonary fibrosis chronically on 14 L nasal cannula who presents the ER for worsening shortness of breath which has been present for the past 2 weeks. She also makes to exertional chest pain which is in the middle of her chest which has been getting significant worse over the past 2 weeks. She denies any belly pain nausea vomiting or diarrhea. She admits to some congestion which is new over the past 3 weeks. No dysuria, urgency or frequency. No other exacerbating or remitting factors. ADDITIONAL HISTORY OBTAINED: Per HPI Chronic Medical/Social Conditions Affecting Care: Per HPI PAST MEDICAL HISTORY:See Below PAST SURGICAL HISTORY:See Below FAMILY HISTORY:See Below SOCIAL HISTORY:See Below HOME MEDICATIONS:See Below ALLERGIES:See Below VITALS:See Below PHYSICAL EXAMINATION: GENERAL: Sitting up in bed, alert, dyspneic with conversation, able to speak 1 word EYE EXAM: normal conjunctiva. OROPHARYNX: no exudate, no erythema, lips, buccal mucosa, and tongue normal and mucous membranes are moist NECK: supple, no nuchal rigidity, no adenopathy, non-tender LUNGS: Poor air movement with faint wheezing bilaterally. Normal chest wall mechanics HEART: no murmurs, S1 normal and S2 normal ABDOMEN: abdomen soft, non-tender, normo-active bowel sounds, no masses, no rebound or guarding. UPPER EXTREMITIES: upper extremities are grossly normal. LOWER EXTREMITIES: No pitting edema. Calves are equal bilaterally NEURO EXAM: Normal sensorium, cranial nerves II-XII grossly intact, normal speech, no gross weakness of arms, no gross weakness of legs. MEDICAL DECISION MAKING: Patient is a 73-year-old female who presents ER for above-stated complaint. IV was established medicals obtained. Patient was hypoxic with exertion dipping down to the 70s. She is on her typical 14 L. She was hypertensive and slightly tachycardic with tachypnea which has improved with oxygen. Labs show leukocytosis 16,000. No significant anemia. VBG with a pH of 7.33 and a CO2 of 40. BMP was fairly unremarkable. Glucose was elevated at 327. LFTs bilirubin and magnesium were unremarkable. Initial troponin was slightly elevated in the 20s. Viral panel was obtained and was negative. CT angio of the chest showed no new acute pathology. I discussed with pulmonology they are agreeable with admission. Patient was given neb treatments and steroids and did improve. She was discussed with the hospitalist for further evaluation management treatment. Consults/Care Managements Discussions: Per [facility] Triage Nursing notes reviewed. Limited review of prior medical records performed Vital Signs: reviewed and remarkable for hypertensive, hypoxic and tachycardic Differential diagnosis: Differential diagnoses includes but is not limited to pneumonia, bronchitis, COPD/Asthma exacerbation, pneumothorax, pulmonary embolism, congestive heart failure, acute coronary syndrome ER treatment provided: See below Diagnostics interpreted by me include EKG and cardiac monitoring as listed below: -Cardiac Monitoring: An order was placed for continuous cardiac monitoring. The monitor shows a rate of 101 with sinus rhythm. -ECG: Sinus rhythm rate 93 Normal axis No PVCs QTc [address] changes in the lateral leads -Laboratory studies:Interpreted by me as stated above in MDM and shown below. Imaging studies: Xrays: As interpreted by me: Portable AP upright 1 view of the chest shows bilateral infiltrates which are unchanged from previous CTs show: CT angio chest unchanged from previous Procedures:none Critical Care: I have personally spent 32 minutes of critical care time in the direct management of this patient. This includes bedside care, interpretation of diagnostic studies, and testing, discussion with consultants, patient, and family members, and other required patient management activities. This 32 minutes is in excess of all separately billable procedures. Past Med/Surg History Problem List (Updated 09/26/23 @ 16:44 by Hernandez Hackett DO) Shortness of breath (Acute) Heart block atrioventricular Palliative care encounter DM2 (diabetes mellitus, type 2) Severe persistent asthma Acute and chronic respiratory failure with hypoxia Hypoxia (Acute) Pulmonary fibrosis (Acute) CHF exacerbation (Acute) Hypoxemic respiratory failure, chronic Respiratory distress Respiratory failure (Acute) Elevated lactic acid level (Acute) Medical History No pertinent family history Asthma Interstitial lung disease IPF (idiopathic pulmonary fibrosis) Surgical History No pertinent past surgical history Family History Other Hypertension Social History Smoking Status: Never smoker Second Hand Exposure: No; Do You Dip or Chew Tobacco: No; Hx Alcohol Use: Yes Alcohol type: beer, wine and hard liquor Hx Substance Use: No Preferred Language: Citizen Of [place] Communication Ability: Effective 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: No Beliefs That Will Affect Care: None Current Living Situation: Spouse Feels Safe at Home: Yes Assistive Devices: Cane Allergies Allergies Allergy/AdvReac Type Severity Reaction Status Date / Time lisinopril Allergy Cough Verified 10/28/22 00:10 Home Meds Home Medications Medication Instructions Recorded Confirmed metformin 500 mg tablet,extended 1,000 mg PO QPM 10/28/22 09/26/23 release 24 hr omeprazole 20 mg capsule,delayed 20 mg PO QAM 10/28/22 09/26/23 release pirfenidone 801 mg tablet 801 mg PO TID 10/28/22 09/26/23 benralizumab 30 mg/mL subcutaneous 30 mg subcut UD 12/30/22 09/26/23 syringe (Fasenra) atorvastatin 10 mg tablet 10 mg PO DAILY 09/26/23 09/26/23 azithromycin 250 mg tablet 250 mg PO 3XWK 09/26/23 09/26/23 budesonide 160 mcg-glycopyr 9 2 inh inhalation BID 09/26/23 09/26/23 mcg-formot 4.8 mcg/actuation HFA inhaler (Breztri Aerosphere) empagliflozin 10 mg tablet 10 mg PO DAILY 09/26/23 09/26/23 (Jardiance) ipratropium 0.5 mg-albuterol 3 mg 3 ml NEB Q6 PRN shortness of 09/26/23 09/26/23 (2.5 mg base)/3 mL nebulization breath or wheezing soln loratadine 10 mg tablet 10 mg PO DAILY PRN Allergy Symptoms 09/26/23 09/26/23 losartan 25 mg tablet 25 mg PO DAILY 09/26/23 09/26/23 prednisone 20 mg tablet 20 mg PO DAILY 09/26/23 09/26/23 Results & Data (ED) Vital Signs Vital Signs - 24 hr 09/26/23 14:20 09/26/23 14:44 09/26/23 15:17 Temperature 36.1 C L Temperature Source Temporal Artery Scan Pulse Rate 118 H 102 H Pulse Rate from SpO2 Sensor Pulse Rhythm Regular Pulse Strength Normal Respiratory Rate 20 Respiratory Effort / Characteristics Non-Labored Spontaneous Respiratory Depth Normal Blood Pressure 152/92 H Blood Pressure Mean 112 Blood Pressure Position Sitting Pulse Oximetry 68 L Oxygen Delivery Method Nasal Cannula Non-rebreather Oxygen Flow Rate 14 15 Sepsis Recent Fever Within 48 Hours No Sepsis New/Unexplained Change in Mental Status N/A Sepsis Action Taken by Nursing No Action Required 09/26/23 15:17 09/26/23 15:31 09/26/23 16:00 Temperature Temperature Source Pulse Rate 102 H Pulse Rate from SpO2 Sensor 102 H Pulse Rhythm Pulse Strength Respiratory Rate 27 H Respiratory Effort / Characteristics Respiratory Depth Blood Pressure 121/84 150/81 H Blood Pressure Mean 96 114 Blood Pressure Position Pulse Oximetry 94 Oxygen Delivery Method Non-rebreather Non-rebreather Oxygen Flow Rate 15 Sepsis Recent Fever Within 48 Hours Sepsis New/Unexplained Change in Mental Status Sepsis Action Taken by Nursing Laboratory Data 09/26/23 14:43 09/26/23 14:43 Lab Results 09/26/23 09/26/23 Range/Units 14:39 14:43 WBC 16.15 H (4.8-10.8) K/ul RBC 4.42 (4.20-5.40) M/uL Hgb 12.9 (12.0-16.0) g/dl POC Hgb 13.3 (12.0-16.0) g/dl Hct 40.2 (37.0-47.0) % POC Hct 39 (37-47) % MCV 91.0 (80.0-100.0) fL MCH 29.2 (25.0-34.0) pg MCHC 32.1 (32.0-36.0) g/dL RDW Std Deviation 52.5 H (36.4-46.3) fL RDW Coeff of Lynn 15.8 H (11.5-14.5) % Plt Count 275 (130-400) K/uL MPV 11.4 (9.4-12.4) fL Immature Gran % (Auto) 0.7 % Neut % (Auto) 93.3 % Lymph % (Auto) 3.8 % [place] % (Auto) 2.1 % Eos % (Auto) 0.0 % Baso % (Auto) 0.1 % Neut # (Auto) 15.06 H (1.40-6.50) K/uL Lymph # (Auto) 0.61 L (1.20-3.40) K/uL [place] # (Auto) 0.34 (0.11-0.59) K/uL Eos # (Auto) 0.00 (0.00-0.50) K/uL Baso # (Auto) 0.02 (0.00-0.20) K/uL Immature Gran # (Auto) 0.12 (0.01-0.20) K/uL Polychromasia 1+ VBG pH 7.33 L (7.36-7.41) VBG pCO2 40 (38-50) mmHg VBG pO2 42 mmHg VBG HCO3 21 mmol/L VBG O2 Saturation 68.2 % VBG Base Excess -4.5 mEq/L POC Sodium 140 (135-144) mmol/L Sodium 140 (136-145) mmol/L POC Potassium 4.5 (3.3-5.0) mmol/L Potassium 4.5 (3.5-5.1) mmol/L POC Chloride 106 (101-112) mmol/L Chloride 105 (98-107) mmol/L Carbon Dioxide 22 (21-32) mmol/L POC Total CO2 20 L (24-31) mmol/L Anion Gap 13 H (3-11) POC Anion Gap 20.0 (16-25) mmol/L POC BUN 33 H (7-18) mg/dl BUN 39 H (6-23) mg/dl Creatinine 0.90 (0.6-1.2) mg/dl POC Creatinine 0.9 (0.6-1.3) mg/dl Est Cr Clr Drug Dosing 52.2 ml/min Est GFR ( Amer) 73.0 ml/min Est GFR (Non-Af Amer) 63.0 ml/min BUN/Creatinine Ratio 43.3 H (10-20) Glucose 327 H* (70-99(Fasting)) mg/dl POC Glucose (other) 320 H (70-99) mg/dl Calcium 9.7 (8.6-10.3) mg/dl POC Ioniz Calcium Estephanie 1.21 (1.12-1.32) mmol/l Magnesium 2.1 (1.7-2.4) mg/dl Total Bilirubin 0.5 (0.2-1.0) mg/dl AST 21 (13-39) U/L ALT 31 (7-52) U/L Alkaline Phosphatase 50 (34-104) U/L Troponin I High Sens 29.1 H (0-14) pg/ml Total Protein 7.5 (6.0-8.3) gm/dl Albumin 4.0 (3.4-5.0) gm/dl Globulin 3.5 (2.5-4.0) gm/dl Albumin/Globulin Ratio 1.1 (0.9-2) Lipase 20 (11-82) U/L Adenovirus (PCR) Not Detected (NotDetected) B. pertussis DNA (PCR) Not Detected (NotDetected) B.parapertussis DNA PCR Not Detected (NotDetected) C. pneumoniae DNA (PCR) Not Detected (NotDetected) Coronavirus OC43 (PCR) Not Detected (NotDetected) Coronavirus HKU1 (PCR) Not Detected (NotDetected) Coronavirus 229E (PCR) Not Detected (NotDetected) SARS-CoV-2 (PCR) Not Detected (NotDetected) Coronavirus NL63 (PCR) Not Detected (NotDetected) Human Metapneumovir PCR Not Detected (NotDetected) Influenza Type A (PCR) Not Detected (NotDetected) Influenza Type B (PCR) Not Detected (NotDetected) M. pneumoniae (PCR) Not Detected (NotDetected) Parainfluenza 1 (PCR) Not Detected (NotDetected) Parainfluenza 2 (PCR) Not Detected (NotDetected) Parainfluenza 3 (PCR) Not Detected (NotDetected) Parainfluenza 4 (PCR) Not Detected (NotDetected) RSV (PCR) Not Detected (NotDetected) Entero/Rhino (PCR) Not Detected (NotDetected) Administered Medications Discontinued Medications Albuterol (Albut/Ipratrop 3mg/0.5mg Neb 3 Ml Vial) 9 ml NEB NOW STA; Protocol Stop: 09/26/23 14:31 Last Admin: 09/26/23 15:06 Dose: 9 ml Documented By: ANIYA Aspirin (Aspirin 81 Mg Chew) 81 mg PO NOW STA Stop: 09/26/23 16:11 Last Admin: 09/26/23 16:14 Dose: 81 mg Documented By: Ioversol (Optiray 320 125ml) 119 ml IV ONCE ONE Stop: 09/26/23 15:03 Last Admin: 09/26/23 15:04 Dose: 119 ml Documented By: BOB Methylprednisolone (Methylprednisolone 125 Mg/2 Ml Vial) 60 mg IV NOW STA Stop: 09/26/23 14:31 Last Admin: 09/26/23 15:05 Dose: 60 mg Documented By: ANIYA Imaging Data Radiologist's Impression: Chest CTA 09/26/23 14:28 CT ANGIOGRAM OF THE CHEST CLINICAL HISTORY: Dyspnea COMPARISON STUDY: Chest CT dated 12/30/2022. Chest x-ray dated 09/26/2023. TECHNIQUE: Following the IV administration of 119 cc of Optiray 320, CT angiogram of the chest was performed from the upper abdomen to the thoracic inlet utilizing the pulmonary embolus protocol. Images are reviewed in the axial, sagittal, and coronal planes. 3-D MIPS images are created and assessed. IV contrast was administered without complication. A dose lowering technique was utilized adhering to the principles of ALARA. CT DOSE: 745.76 mGy.cm FINDINGS: Thyroid: Imaged portions of the thyroid gland are normal in size and attenuation. Thoracic aorta: There is atherosclerotic calcification of the thoracic aorta, which is normal in caliber and demonstrates 4-vessel variant arch anatomy. 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 No dissection is seen. Pulmonary vasculature: The pulmonary trunk is dilated, measuring 3.3 cm in diameter. This suggests pulmonary artery hypertension. There are no filling defects identified in main, lobar, or segmental pulmonary branches to suggest pulmonary embolus. Heart: The heart is enlarged without pericardial effusion. Lungs and pleural spaces: Again seen are changes of chronic interstitial/fibrotic lung disease. There is diffuse subpleural reticulation with intralobular septal thickening and groundglass consolidation. This shows a lower lobe predominance. Traction bronchiectasis is seen throughout both lungs. There are scattered foci of honeycombing. Foci of air trapping are seen bilaterally. No superimposed airspace consolidation or pleural effusion is identified. The trachea and central airways are clear. Scattered calcified granulomas are observed. Mediastinum: Enlarged high right paratracheal lymph node on image #188 is similar to previous, measuring 1.8 x 1.4 cm. A precarinal node is also unchanged, measuring up to 1.3 cm in short axis. Aixa: Mildly enlarged hilar nodes are similar to previous, measuring up to 13 mm in short axis. Axillae: There is no axillary lymphadenopathy. Upper abdomen: Gallstones are noted. There is a small hiatal hernia. Skeletal structures: The skeletal structures are osteopenic. Degenerative change is noted in the shoulders and spine. No lytic or blastic bony lesions are seen. IMPRESSION: 1. There is no evidence of pulmonary embolus in the main, lobar, or segmental pulmonary arteries. 2. Cardiomegaly with evidence of pulmonary artery hypertension. 3. Again seen are findings of chronic interstitial/fibrotic lung disease. 4. No superimposed air space consolidation or pleural effusion is identified. 5. Mildly enlarged mediastinal and hilar lymph nodes are similar to previous and likely related to chronic lung disease. 6. Cholelithiasis. 7. Additional findings as above. ACT 112: Negative or not required by law. Electronically signed by: Tj Calvert M.D. 09/26/2023 3:31 PM Chest X-Ray 09/26/23 14:28 XR chest 1V portable CLINICAL HISTORY: Chest pain, nonspecific TECHNIQUE: Single frontal radiograph of the chest was obtained. Comparison: Comparison is made to chest radiograph 12/30/2022 FINDINGS: No lines and tubes are seen. Cardiomegaly is noted. The aortic arch is calcified. Reticular interstitial opacities are seen. No evidence of pleural effusion or pneumothorax. IMPRESSION: No acute chest disease. Cardiomegaly is noted. ACT 112: Negative or not required by law. Electronically signed by: Krishan Loja M.D. 09/26/2023 3:05 PM Discharge Plan Visit Data Chief Complaint: Shortness of Breath/Dyspnea Stated Complaint: BREAHTING DIFFICULTY ED Provider: Hernandez Hackett Discharge Problem: Respiratory failure, Hypoxia, Pulmonary fibrosis, Shortness of breath Patient Disposition: Admitted As Inpatient Discharge Instructions Interventions: ED Discharge Assessment Last Done: 09/26/23 16:38 Forms Stand Alone Forms: [employer] Prescriptions Prescriptions: No Action Fasenra 30 mg/mL syringe 30 mg SUBCUT UD Rx Instructions: Performed every 8 weeks. omeprazole 20 mg capsule,delayed release(DR/EC) 20 mg PO QAM metformin 500 mg tablet extended release 24 hr 1,000 mg PO QPM Patient Comments: on HOLD because of renal function pirfenidone 801 mg tablet 801 mg PO TID Rx Instructions: Takes in the morning, at noon and before bedtime. ipratropium-albuterol 0.5 mg-3 mg(2.5 mg base)/3 mL solution for nebulization 3 ml NEB Q6 PRN (Reason: shortness of breath or wheezing) losartan 25 mg tablet 25 mg PO DAILY Jardiance 10 mg tablet 10 mg PO DAILY atorvastatin 10 mg tablet 10 mg PO DAILY prednisone 20 mg tablet 20 mg PO DAILY azithromycin 250 mg tablet 250 mg PO 3XWK Breztri Aerosphere 160-9-4.8 mcg/actuation HFA aerosol inhaler 2 inh INHALATION BID loratadine 10 mg Tablet 10 mg PO DAILY PRN (Reason: Allergy Symptoms) Referrals Referrals: Rizwana Antunez MD [Primary Care Provider] - Discharge Problem: Respiratory failure Qualifiers: Chronicity: unspecified Respiratory failure complication: unspecified whether with hypoxia or hypercapnia Qualified Code(s): J96.90 - Respiratory failure, unspecified, unspecified whether with hypoxia or hypercapnia
[2023-09-26 16:46] LABS: Magnesium 2.1 mg/dl (1.7-2.4)
[2023-09-26] MEDS ORDERED: ONDANSETRON INJ 2 MG/ML 2 ML VIAL IV PRN (17:22)
[2023-09-26] MEDS ORDERED: LORATADINE 10 MG TAB PO PRN (17:22)
[2023-09-26] MEDS ORDERED: GLUCOSE 10 TAB/TUBE PO PRN (17:22)
[2023-09-26] MEDS ORDERED: DEXTROSE 50% 50 ML SYRINGE IV PRN (17:22)
[2023-09-26] MEDS ORDERED: POLYETHYLENE (MIRALAX) 17 GM PACK PO PRN (17:22)
[2023-09-26] MEDS ORDERED: GLUCOSE 40% GEL 15 GM TUBE PO PRN (17:22)
[2023-09-26] MEDS ORDERED: GLUCAGON FOR INJ 1 MG VIAL SQ PRN (17:22)
[2023-09-26] MEDS ORDERED: PHARMACY GLYCEMIC MGMT CONSULT PRN (17:22)
[2023-09-26] MEDS: ALBUT/IPRATROP 3MG/0.5MG NEB 3 ML VIAL NEB SCH (18:08)
[2023-09-26] MEDS: ENOXAPARIN INJ 40 MG/0.4 ML SYR SQ SCH (18:18)
[2023-09-26] MEDS: INSULIN ASPART PER UNIT CHARGE SC SCH (18:19)
[2023-09-26] MEDS: DOXYCYCLINE HYCLATE 100 MG CAP PO SCH (20:49)
--- NOTE | 2023-09-27 12:47 | Pulmonary Consultation ---
Date of Consultation September 27, 2023 Assessment & Plan (1) Acute and chronic respiratory failure with hypoxia: Hypoxemia substantially worsened likely due to increasingly worse pulmonary hypertension. Recommend diuresis and considering RHC to eval the patient for prostanoid therapy such as Tyvaso. will check bnp and give lasix x1. (2) Pulmonary fibrosis: Unclear if she has an acute flair. RVP and procal negative on admission. No signs of infectious etiology. Reasonable to give a short trial of increased systemic corticosteroid therapy. (3) Pulmonary hypertension: No PE seen on chest CTA. Suspect worsening PH is the main driving force for patient's worsening hypoxemia. Prognosis is quite poor. Palliative care consult highly recommended. Patient is apparently ok with CPR in the event of cardiac arrest. Highly unlikely to survive such an event. History of Present Illness Reason for Consultation: Acute on chronic hypoxemic resp failure Attending Physician: Robin Doll MD History of Present Illness 73-year-old female with a past medical history of IPF, chronic hypoxemia and pulmonary hypertension presenting due to worsening shortness of breath. Echo reveals worsening PA pressures of 66mmhg. CTC 09/26/23 revealed chronic ILD changes. Procal negative. Patient on 40 mg IV daily methylprednisone. Follows with [facility] pulm. Since previously by [facility] pulm transplant team, but denies due to comorbid conditions. Home meds include Breztri, Fasenra, azithromycin 250 mg MWF, omeprazole and Esbriet. Allergies Allergy/AdvReac Type Severity Reaction Status Date / Time lisinopril Allergy Cough Verified 10/28/22 00:10 Home Medications Medication Instructions Recorded Confirmed Type metformin 500 mg tablet,extended 1,000 mg PO QPM 10/28/22 09/26/23 History release 24 hr omeprazole 20 mg capsule,delayed 20 mg PO QAM 10/28/22 09/26/23 History release pirfenidone 801 mg tablet 801 mg PO TID 10/28/22 09/26/23 History benralizumab 30 mg/mL subcutaneous 30 mg subcut UD 12/30/22 09/26/23 History syringe (Fasenra) atorvastatin 10 mg tablet 10 mg PO DAILY 09/26/23 09/26/23 History azithromycin 250 mg tablet 250 mg PO 3XWK 09/26/23 09/26/23 History budesonide 160 mcg-glycopyr 9 2 inh inhalation BID 09/26/23 09/26/23 History mcg-formot 4.8 mcg/actuation HFA inhaler (Breztri MDLIVEphere) empagliflozin 10 mg tablet 10 mg PO DAILY 09/26/23 09/26/23 History (Jardiance) ipratropium 0.5 mg-albuterol 3 mg 3 ml NEB Q6 PRN shortness of 09/26/23 09/26/23 History (2.5 mg base)/3 mL nebulization breath or wheezing soln loratadine 10 mg tablet 10 mg PO DAILY PRN Allergy Symptoms 09/26/23 09/26/23 History losartan 25 mg tablet 25 mg PO DAILY 09/26/23 09/26/23 History prednisone 20 mg tablet 20 mg PO DAILY 09/26/23 09/26/23 History Patient History Medical History No pertinent family history Asthma Interstitial lung disease IPF (idiopathic pulmonary fibrosis) Surgical History No pertinent past surgical history Family History Other Hypertension Social History Smoking Status: Never smoker Second Hand Exposure: No; Do You Dip or Chew Tobacco: No; Hx Alcohol Use: Yes Alcohol type: beer, wine and hard liquor Hx Substance Use: No Preferred Language: [place] Communication Ability: Effective Claim Processing Specialist Required: No Beliefs That Will Affect Care: None Current Living Situation: Spouse Other Information That Helps Us Care for You: No Feels Safe at Home: Yes Safety Concerns: Feels Safe At This Time Assistive Devices: Cane, Scooter/Electric Scooter, Stair Lift, Walker and Wheelchair Assistive Devices Comment: wheelchair for long distance amb Review of Systems Review of Systems: All systems reviewed & are unremarkable except as noted in HPI & below Results & Data Results & Data Vital Signs (Past 12 Hours) Vital Signs Pulse Resp Pulse Ox O2 Del Method O2 Flow Rate FiO2 09/27/23 00:54 64 12 94 High Flow Nasal Cannula 30 60 PG Care Time/CCT Total # of Minutes Spent Total Time Spent with Patient: Total time spent is greater than 50% in coordination of care (as documented) at patient's floor/unit and/or counseling patient: Coding Level of Care Code 85237 INT INP/OBS CARE MIN Diagnoses Acute and chronic respiratory failure with hypoxia J96.21 Pulmonary fibrosis J84.10 Pulmonary hypertension I27.20
--- OUTSIDE RECORDS SUMMARY | 2023-09-27 14:23 | External Medical Summary | Summary of Care ---
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 Name Role Phone Rizwana Antunez MD Primary Care Provider [phone] Reason for Visit * Reason Onset Date Comments Palliative Care Follow-up 09/16/2023 Encounter Details Date Type Department Care Team (Late st Contact Info) Description 09/16/2023 Telephone Palliative Medicine, [facility] [address] [facility] 5[address] [place], [place] [id number] Amarilys Ramirez MD [address] [place], [place] [id number] Palliative Care Follow-up Allergies Active Allergy Reactions Criticality Noted Date Comments Lisinopril Cough 05/04/2022 documented as of this encounter (statuses as of 09/16/2023) Medications Medication Sig Dispensed Refills Start Date End Date Status Probiotic Acidophilus Oral CapsuleIndications:H ospital discharge follow-up,Coagulase negative Staphylococcus bacteremia 2 daily 11/08/2022 Active Loratadine 10 MG Oral Tablet (Claritin)Indication s:Environmental and seasonal allergies Take 1 Tablet by mouth in the morning. 30 Tablet 11 12/10/2022 Active Additional Information Patient taking differently:10 mg OralPRN, Rhinitis, Reported on 12/24/2022 Fasenra 30 MG/ML Subcutaneous Solution Prefilled Syringe Inject 1 mL under the skin Every Month. Every 8 weeks 12/04/2022 Active Multi-Vitamins Oral Tablet Take 1 Tablet by mouth in the morning. Active Repaglinide 0.5 MG Oral Tablet (Prandin)Indications :Type 2 diabetes mellitus with hemoglobin A1c goal of less than 7.0% ([facility]),Elevated BUN,Dehydration Take 1 Tablet by mouth in the morning and 1 Tablet at noon and 1 Tablet in the evening. Take before meals. If sugar >140 (using temporarily as holding metformin due to gfr 33 with diuretic use, STOP torsemide and potassium), stat lab 12/28/22. 90 Tablet 12/24/2022 Active oxygen IN GAS 6 lpm during the day and 4 lpm at bedtime, titrate to 10-15 liters on exertion to keep saturation >90% since hosp DC 1 Each 01/10/2023 Active Additional Information Patient taking differently: 10 L/min(Oxygen) Nasal cannula CONTINUOUS, 10-12 lpm during the day and 10 lpm at bedtime, titrate to 10-15 liters on exertion to keep saturation >90% since hosp DC. Pt wears 8 liters at rest sitting at times., Reported on 05/14/2023 [facility] 160-9-4.8 MCG/ACT Inhalation Aerosol (Budeson-Glycopyrrol -Formoterol) Inhale 2 Puffs by mouth in the morning and 2 Puffs in the evening. 10.7 g 11 01/16/2023 Active Omeprazole 20 MG Oral Tablet Delayed ReleaseIndications:G astroesophageal reflux disease without esophagitis Take 1 Tablet by mouth in the morning. Still taking. 05/15/2023 Active metFORMIN HCl ER 500 MG Oral Tablet Extended Release 24 Hour (Glucophage XR)Indications:Chron ic respiratory failure with hypoxia, on home oxygen therapy ([facility]),IPF (idiopathic pulmonary fibrosis) ([facility]),Type 2 diabetes mellitus with hemoglobin A1c goal of less than 7.0% ([facility]),[facility] (current) use of systemic steroids Take 2 Tablets by mouth daily with dinner. (Restart 1 tab 01/18/2023) inc 2 tabs 01/30/2023, inc 3 tabs 03/26/2023, inc 4 tabs 05/15/2023 360 Tablet 1 05/15/2023 Active Azithromycin 250 MG Oral Tablet (Zithromax Z-Guillermo) Take 1 Tablet by mouth once a day on Saturday, Saturday, and Saturday only for 90 doses. 90 Tablet 05/24/2023 4 Active Atorvastatin Calcium 10 MG Oral Tablet (Lipitor)Indications :Type 2 diabetes mellitus with hemoglobin A1c goal of less than 7.0% ([facility]),Dyslipidemia, goal LDL below 100 TAKE 1 TABLET BY MOUTH EVERY DAY IN THE MORNING 90 Tablet 1 06/12/2023 Active Jardiance 10 MG Oral Tablet (Empagliflozin)Indic ations:Type 2 diabetes mellitus with hemoglobin A1c goal of less than 7.0% ([facility]),Chronic respiratory failure with hypoxia, on home oxygen therapy ([facility]),IPF (idiopathic pulmonary fibrosis) ([facility]),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 Restart 03/26/2023 90 Tablet 1 07/29/2023 Active Ipratropium-Albutero l 0.5-2.5 (3) MG/3ML Inhalation Solution (Duoneb) Inhale 3 mL via nebulizer every 6 hours as needed for Dyspnea or Wheezing. 360 mL 2 08/06/2023 Active predniSONE 20 MG Oral Tablet (Deltasone) Take 1 Tablet by mouth in the morning. TAKE 1 TABLET BY MOUTH EVERY DAY IN THE MORNING. 30 Tablet 2 08/20/2023 4 Active Hospital, Clinic, or Other Facility Administered Medication Ordered Dose Route Frequency Start Date End Date Status Albuterol Sulfate (Proventil) (2.5 MG/3ML) 0.083% inhalation solution 2.5 mgIndications:IPF (idiopathic pulmonary fibrosis) ([facility]) 2.5 mg NEBULIZER PRN 12/05/2022 12/05/2023 Active Benralizumab (Fasenra) prefilled syringe 30 mgIndications:Severe persistent asthma, unspecified whether complicated 30 mg SC [id number] 06/13/2023 12/24/2024 Active documented as of this encounter (statuses as of 09/16/2023) Active Problems Problem Noted Date Diagnosed Date Dyslipidemia, goal LDL below 100 07/29/2023 [facility] (current) use of systemic steroids Palliative care encounter 05/09/2023 Goals of care, counseling/discussion 05/09/2023 Dyspnea on minimal exertion 05/08/2023 Asthma, severe persistent 04/18/2023 Pulmonary hypertension 12/06/2022 Right foot drop 12/02/2022 Elevated IgE level 11/28/2022 Acute on chronic respiratory failure with hypoxi a 11/27/2022 Interstitial lung disease 11/26/2022 Dependence on continuous supplemental oxygen Chronic respiratory failure with hypoxia, on home oxygen therapy 01/29/2022 Gastroesophageal reflux disease 01/29/2022 Obesity (BMI 30.0-34.9) 01/29/2022 Environmental and seasonal allergies 01/29/2022 HTN, goal below 130/80 11/20/2021 Type 2 diabetes mellitus wit h hemoglobin A1c goal of less than 7.0% 11/20/2021 IPF (idiopathic pulmonary fibrosis) 11/20/2021 Overview: diag 2018 Encounter for screening mammogram for breast can cer 11/20/2021 Screening for osteoporosis 11/20/2021 Menopause 11/20/2021 Screen for colon cancer 11/20/2021 Nocturnal hypoxia 11/20/2021 documented as of this encounter (statuses as of 09/16/2023) Resolved Problems Problem Noted Date Diagnosed Date Resolved Date Acute pulmonary edema 11/30/20222022 Bacteremia due to Staphylococcus epidermidis 3 12/10/2022 Multifocal pneumonia 11/26/2022 023 Severe persistent asthma with exacerbation 07/31/2022 12/10/2022 Severe obesity with body mas s index (BMI) of 35.0 to 39.9 with serious comorbidity 11/20/2021 documented as of this encounter (statuses as of 09/16/2023) Immunizations Name Administration Dates Next Due COVID-19 mRNA, LNP-s, No Pre serve, 2-Dose Series (Moderna) 04/26/2020,03/29/2020 COVID-19, LNP-s, No Preserve , Mir-sucrose, Ages 12+ (Pfizer) 01/08/2022 COVID-19, mRNA, LNP-s, PF, B ooster, 100mcg/0.5mg (Moderna) 07/07/2021,01/16/2021 Pneumococcal Conjugate Vacc, 13 Valent (Prevnar) 11/27/2018 Pneumococcal Polysaccharide PPV23 (Pneumovax) RSV Vac., Recomb, Adjuvant, PF,0.5 Ml (Arexvy) 1 03/28/2022 Seasonal Influenza, Quadrivalent Hd (Fluzone Hd) 12/24/2022,12/12/2021 Varicella Zoster Vaccine (Adult) 03/26/2014 documented as of this encounter Social History Tobacco Use Types Packs/Day Years Used Date Smoking Tobacco: Never Smokeless Tobacco: Never Comments:Trivial prior smoki ng in college Alcohol Use Standard Drinks/Week Comments Yes 0 (1 standard drink = 0.6 oz pur e alcohol) very rare PHQ-2 Answer Date Recorded PHQ Adult Total Score 12 07/19/2023 Hunger Vital Sign Answer Date Recorded Within the past 12 months, y ou worried that your food would run out before you got the money to buy more. Never true 01/29/20 22 Within the past 12 months, t he food you bought just didn't last and you didn't have money to get more. Never true 01/28/2022 Personal Safety Answer Date Recorded Do you feel unsafe or have concerns for your saf ety? No 05/08/2023 Do you have concerns for you r family's safety? (Household - for ages 0-17 years) Not on file 05/08/2023 Utilities Answer Date Recorded Do you have trouble paying y our heating, water, or electric bill? No 05/08/2023 Is your family able to pay t he heat, water, or electric bill? (Household - for ages 0-17 years) Not on file 05/08/2023 Does your family have access to good internet? (Household - for ages 0-17 years) Not on file 05/08/2023 Social Connections Answer Date Recorded How often do you feel lonely or isolated from those around you? (Adult - for ages 18 years and over) Not on file 08/27/2023 Transportation Needs Answer Date Record ed READ ONLY Do you have troubl e getting a ride to medical visits or work? Never True 05/08/2023 Does your family have a hard time getting a ride to doctors visits? (Household - for ages 0-17 years) Not on file 05/08/2023 Has lack of transportation k ept you from medical appointments, meetings, work, or from getting things needed for daily living? Check all that apply. (Adult - for ages 18 years and over) Not on file 05/08/2023 Do you (or your family) have trouble finding or paying for a ride (transportation)? (Household - for ages 0-17 years) Not on file 05/08/2023 Housing Stability Answer Date Recorded Do you currently live in a s helter or have no steady place to sleep at night? (Adult - for ages 18 years and over) Not on file 05/08/2023 READ ONLY Do you think you a re at risk of becoming homeless? No 05/08/2023 Does your family worry about paying for your home or becoming homeless? (Household - for ages 0-17 years) Not on file 0 05/08/2023 Are you homeless or worried that you might be in the future? (Adult - for ages 18 years and over) Not on file Are you (or your family) jose eless or worried that you might be in the future? (Household - for ages 0-17 years) Not on file Food Insecurity Answer Date Recorded Do you need food for this week? No 05/08/2023 Are you able to get enough f ood for your family? (Household - for ages 0-17 years) Not on file 05/08/2023 Does your family need food t his week? (Household - for ages 0-17 years) Not on file 05/08/2023 Do you always have enough fo od for your family? (Household - for ages 0-17 years) Not on file 05/08/2023 Sex and Gender Information Value Date Recorded Sex Assigned at Female 01/28/2022 5:09 PM EST Gender Identity Female 01/28/2022 5:09 PM EST Sexual Orientation Straight 01/28/2022 5: 09 PM EST Job Start Date Occupation Industry Not on file Not on file Not on file documented as of this encounter Functional Status Functional Status Response Date of Assess ment Are you deaf or do you have serious difficulty h earing? No 05/08/2023 Are you blind or do you have serious difficulty seeing, even when wearing glasses? No 05/08/2023 Do you have serious difficul ty walking or climbing stairs? (5 years old or older) No 05/08/2023 Do you have difficulty dress ing or bathing? (5 years old or older) No 05/08/2023 Because of a physical, menta l, or emotional condition, do you have difficulty doing errands alone such as visiting a doctor s office or shopping? (15 years old or older) No 05/08/19 Cognitive Status Response Date of Assessm ent Because of a physical, menta l, or emotional condition, do you have serious difficulty concentrating, remembering, or making decisions? (5 years old or older) No 05/08/2023 documented as of this encounter Miscellaneous Notes * Telephone Encounter - Shahida Jimenez LPN - 09/16/2023 12:45 PM EDT HOSPICE order placed for info session Reached out to Jaylin with [facility] to coordinate info session Will f/u in 2 weeks to see if enrolled If not enrolled, will schedule video visit with Dr. Ramirez beginning of October documented in this encounter Plan of Treatment Upcoming Encounters Date Type Department Care Team (Late st Contact Info) Description 09/23/2023 1:00 PM EDT Therapy Psychology [facility] [address] [place] [id number] Daisy Servin, RESIDENTIAL FIELD MANAGER [address] [place] [phone] 09/26/2023 1:00 PM EDT Nurse Only Pulmonary Medicine, [facility] [address] [place] [address] Gw, Nurse Pulmonary [address] [facility] [place] [id number] 10/28/2023 1:40 PM EDT Office Visit Pulmonary Medicine, [facility] [address] [place] [address] Frank Finch MD [address] [place] [address] 11/04/2023 3:00 PM EDT Office Visit General Internal Medicine [facility] [address] [facility] [place] [address] Rizwana Antunez MD [address] [facility] [place] [address] 12/02/2023 11:00 AM EDT [facility], [facility] [address] [facility] [address] 02/26/2024 1:30 PM EST Office Visit Cardiology, [facility] [address] [facility] [place] [address] Ni Kay PA-C [address] [facility] [address] 04/02/2024 1:00 PM EST Imaging Radiology [facility] [address] [facility] [address] [facility] [place] [address] Health Maintenance Due Date Last Done Comments Zoster Vaccines (1 of 2) 05/21/2014 03/26/2014 COVID-19 Vaccine (2022-2 4 season) 2023 01/26/2023, 01/08/2022, 07/07/2021, Additional history exists Influenza Vaccine (FLU shot) (#1) 2023 023, 12/12/2021 Depression Monitoring 07/18/2024 07/19/2023 Diabetic Eye Exam Discontinued 01/16/2019 Cologuard Discontinued 02/16/2022, 12/0 08/2021, 02/13/2022 Diabetic Foot Exam Discontinued 01/30/2023, 01/29/2022 Albumin/Creatinine Ratio Discontinued 03/26/2023, 01/10 Colorectal Cancer Screening Discontinued Fecal Occult Blood Test Discontinued 03/26/2023 Colonoscopy Discontinued Sigmoidoscopy Discontinued documented as of this encounter Medical Devices Not on filedocumented as of this encounter Advance Directives Documents on File Type Date Recorded Patient Razor Grinder Expl anation POLST 05/24/2023 9:25 AM POLST (Rawls ited DNR) * Full Code (Latest Code Status on File) Date Activated Date Inactivated Comments 05/08/2023 8:20 PM 05/11/2023 6:30 PM This order re flects the patients wishes and were consensually agreed upon. Question Answer Comments Discussion of Advance Directives occurred with: Patient Does the patient have a Living Will? No Does the patient have Health Care Power of Attor bandar? No * Limited Code Date Activated Date Inactivated Comments 11/26/2022 8:55 PM 12/04/2022 10:12 PM This order reflects the patients wishes and were consensually agreed upon. Question Answer Comments Discussion of Advance Directives occurred with: Patient Does the patient have a Living Will? No Does the patient have Health Care Power of Attor bandar? No Bag Valve Device? No Intubation? No Cardiac Compressions? Yes Defibrillation? Yes Synchronized Cardioversion? Yes External Pacemaker? Yes Cardiac Drugs? 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
--- OUTSIDE RECORDS SUMMARY | 2023-09-27 14:23 | External Medical Summary | Summary of Care ---
Author Name Unknown Organization [facility] Address [address] [facility] [place] [address] Phone [phone] Care Team Providers Care Child Health Associate Name Role Phone Rizwana Antunez MD Primary Care Provider [phone] Reason for Visit * Reason Onset Date Comments Medication Refill 08/18/2023 Encounter Details Date Type Department Care Team (Late st Contact Info) Description 08/18/2023 Refill General Internal Medicine [facility] [address] [facility] [place] [address] Izzy Case MD 200 [facility] [place] [address] Allergies Active Allergy Reactions Criticality Noted Date Comments Lisinopril Cough 05/04/2022 documented as of this encounter (statuses as of 08/20/2023) Medications Medication Sig Dispensed Refills Start Date End Date Status Probiotic Acidophilus Oral CapsuleIndications: Hospital discharge follow-up,Coagulase negative Staphylococcus bacteremia 2 daily 11/08/2022 Active Loratadine 10 MG Oral Tablet (Claritin)Indicatio ns:Environmental and seasonal allergies Take 1 Tablet by [...] morning. Active Repaglinide 0.5 MG Oral Tablet (Prandin)Indication s:Type 2 diabetes mellitus with hemoglobin A1c goal [...] exertion to keep saturation >90% since hosp [place]. Pt wears 8 liters at rest sitting at times., Reported on 05/14/2023 UpOut Aerosphere 160-9-4.8 MCG/ACT Inhalation Aerosol (Budeson-Glycopyrro l-Formoterol) Inhale 2 Puffs by mouth in the morning and 2 Puffs in the evening. 10.7 g 11 01/16/2023 Active Omeprazole 20 MG Oral Tablet Delayed ReleaseIndications: Gastroesophageal reflux disease without esophagitis Take 1 Tablet by mouth in the morning. Still taking. 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 oxygen therapy ([facility]),IPF (idiopathic pulmonary fibrosis) ([facility]),Type 2 diabetes mellitus with hemoglobin A1c goal of less than 7.0% ([facility]),FDC (current) use of systemic steroids Take 2 [...] Active Atorvastatin Calcium 10 MG Oral Tablet (Lipitor)Indication s:Type 2 diabetes mellitus with hemoglobin A1c goal of less than 7.0% ([facility]),Dyslipidemia, goal LDL below 100 TAKE 1 TABLET BY MOUTH EVERY DAY IN THE MORNING 90 Tablet 1 06/12/2023 Active Jardiance 10 MG Oral Tablet (Empagliflozin)Arabella cations:Type 2 diabetes mellitus with hemoglobin A1c goal of less than 7.0% ([facility]),Chronic respiratory failure with hypoxia, on home oxygen therapy ([facility]),IPF (idiopathic pulmonary fibrosis) ([facility]),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 Restart 03/26/2023 90 Tablet 1 07/29/2023 Active Ipratropium-Albuter ol 0.5-2.5 (3) MG/3ML Inhalation Solution (Duoneb) Inhale 3 mL via nebulizer every 6 hours as needed for Dyspnea or Wheezing. 360 mL 2 08/06/2023 4 Active predniSONE 20 MG Oral Tablet (Deltasone) Take 1 Tablet by mouth in the morning. TAKE 1 TABLET BY MOUTH EVERY DAY IN THE MORNING. 30 Tablet 2 08/20/2023 4 Active predniSONE 20 MG Oral Tablet (Deltasone) TAKE 1 TABLET BY MOUTH EVERY DAY IN THE MORNING 30 Tablet 07/23/2023 4 Discontinu ed(Refill) Hospital, Clinic, or Other Facility Administered Medication Ordered Dose Route Frequency Start Date End Date Status Albuterol Sulfate (Proventil) (2.5 MG/3ML) 0.083% inhalation solution 2.5 mgIndications:IPF (idiopathic pulmonary fibrosis) ([facility]) 2.5 mg NEBULIZER PRN 12/05/2022 12/05/2023 Active Benralizumab (Fasenra) prefilled syringe 30 mgIndications:Severe persistent asthma, unspecified whether complicated 30 mg SC [id number] 06/13/2023 12/24/2024 Active documented as of this encounter (statuses as of 08/20/2023) Active Problems Problem Noted Date Diagnosed Date Dyslipidemia, goal LDL below 100 07/29/2023 FDC (current) use of systemic steroids Palliative care [...] as of this encounter (statuses as of 08/20/2023) Resolved Problems Problem Noted Date Diagnosed Date Resolved Date Acute pulmonary edema 11/30/20222022 Bacteremia due to Staphylococcus epidermidis 3 12/10/2022 Multifocal pneumonia 11/26/2022 023 Severe persistent asthma with exacerbation 07/31/2022 12/10/2022 Severe obesity with body mas s index (BMI) of 35.0 to 39.9 with serious comorbidity 11/20/2021 documented as of this encounter (statuses as of 08/20/2023) Immunizations Name Administration Dates Next Due COVID-19 [...] money to get more. Never true 01/28/2022 Sex and Gender Information Value Date Recorded [...] (15 years old or older) No 05/08/19 24 Cognitive Status Response Date of Assessm ent Because of a physical, menta l, or emotional condition, do you have serious difficulty concentrating, remembering, or making decisions? (5 years old or older) No 05/08/2023 documented as of this encounter Miscellaneous Notes * Telephone Encounter - Frank Dhaliwal MD - 08/20/2023 4:33 PM EDT Signed Prescriptions: Disp Refills predniSONE 20 MG Oral Tablet (Deltasone) 30 Tab*2 Sig: Take 1 Tablet by mouth in the morning. TAKE 1 TABLET BY MOUTH EVERY DAY IN THE MORNING. Authorizing Provider: FRANK DHALIWAL * Telephone Encounter - Rizwana Antunez MD - 08/20/2023 12:25 PM EDTPending Prescriptions: Disp Refills predniSONE 20 MG Oral Tablet (Deltasone) 30 Tab*0 * Telephone Encounter - Joel Kaur, MED ASSIST - 08/20/2023 9:19 AM EDTPending Prescriptions: Disp Refills predniSONE 20 MG Oral Tablet (Deltasone) 30 Tab*0 * Telephone Encounter - Joel Kaur MED ASSIST - 08/20/2023 9:18 AM EDT Did you pend patient's preferred pharmacy and medication before forwarding?yes Pharmacy: [id number] [address] [facility] Pending Prescriptions: Disp Refills predniSONE 20 MG Oral Tablet (Deltasone) 30 Tab*0 Last Visit: 07/29/2023 (in office), Visit date not found (telemedicine) Next Visit: 11/04/2023 If no future appointments scheduled, and last appointment is greater than a year ago, please schedule patient for a follow-up appointment Last date the medication was ordered: 07/23/2023 Is this request for a controlled substance?No Urine Drug Screen:No results found for this or any previous visit. Patient Phone Numbers Labs: Lab Results Component Value Date/Time CREAT 0.8 07/25/2023 02:25 PM CREAT 0.69 11/13/2022 12:00 AM POTASSIUM 4.3 07/25/2023 02:25 PM POTASSIUM 4.0 11/13/2022 12:00 AM TSH 2.37 01/29/2022 10:36 AM LDLCALC 77 09/20/2022 09:31 AM LDLCALC 94 10/24/2020 12:00 AM LDLDIRECT 92 07/25/2023 02:25 PM ALT 16 07/25/2023 02:25 PM HGBA1C 7.8 (H) 07/25/2023 02:25 PM HGBA1C 6.8 10/24/2020 12:00 AM * Telephone Encounter - Horacio Sanchez - 08/18/2023 2:51 PM EDTPending Prescriptions: Disp Refills predniSONE 20 MG Oral Tablet (Deltasone) 30 Tab*0 documented in this encounter Plan of Treatment Upcoming Encounters Date Type Department Care Team (Late st Contact Info) Description 08/28/2023 2:00 PM EDT Therapy Psychology [facility] [address] [facility] [place] [address] Daisy Servin, [facility] [address] [place] [address] 09/09/2023 10:00 AM EDT Telemedicine Palliative Medicine, [facility] [address] [facility] 5th [place] [address] Amarilys Ramirez MD [address] [place] [address] 09/26/2023 1:00 PM EDT Nurse Only Pulmonary Medicine, [facility] [address] [facility] [address] [place] [address] Gw, Nurse Pulmonary [address] [facility] [place] [address] 10/28/2023 1:40 PM EDT Office Visit Pulmonary Medicine, [facility] [address] [place] [address] Frank Dhaliwal MD [address] [place] [address] 11/04/2023 3:00 PM EDT Office Visit General Internal Medicine [facility] [address] [place], [place] [address] Rizwana Antunez MD [address] [place], [place] [address] 12/02/2023 11:00 AM EDT Imaging Radiology, [facility] [address] [facility] [place] [address] 02/26/2024 1:30 PM EST Office Visit Cardiology, [facility] [address] [place] [address] Ni Kay PA-C [address] [facility] [place] [address] 04/02/2024 1:00 PM EST Imaging Radiology [facility] [address] [facility] [address] [place] [address] Health Maintenance Due Date Last Done Comments Zoster Vaccines (1 of 2) 05/21/2014 03/26/2014 COVID-19 Vaccine (2022-04 4 season) 2023 01/26/2023, 01/08/2022, 07/07/2021, Additional history exists Depression Monitoring 07/18/2024 07/19/2023 Diabetic Eye Exam Discontinued 01/16/2019 Cologuard Discontinued 02/16/2022, 12/0 08/2021, 02/13/2022 Influenza Vaccine (FLU shot) Completed 12/24/2022, 12/12/2021 Diabetic Foot Exam Discontinued 01/30/2023, 01/29/2022 Albumin/Creatinine Ratio Discontinued 03/26/2023, 01/10 Colorectal Cancer Screening Discontinued Fecal Occult Blood Test Discontinued 03/26/2023 Colonoscopy Discontinued Sigmoidoscopy Discontinued documented as of this encounter Medical Devices Not on filedocumented as of this encounter Advance Directives Documents on File Type Date Recorded Patient Packing Shed Supervisor Expl anation POLST 05/24/2023 9:25 AM POLST [...] Pacemaker? Yes Cardiac Drugs? Yes Care Teams Child Health Associate Relationship Specialty Start Date End Date Rizwana Antunez MD 200 [facility] [place] [address] PCP - General Internal Medicine 03/28/22 documented as of this encounter
--- OUTSIDE RECORDS SUMMARY | 2023-09-27 14:23 | External Medical Summary | Summary of Care ---
Author Name Unknown Organization [facility] Address [address] [facility] [facility] [place] [address] Phone [phone] Care Team Providers Care Supervisor Frame Assembly Name Role Phone Rizwana Antunez MD Primary Care Provider [phone] Reason for Visit * Reason Comments Psychotherapy Encounter Details Date Type Department Care Team (Late st Contact Info) Description 09/23/2023 1:00 PM EDT Therapy Psychology [facility] [address] [place] [address] Daisy Servin, [facility] [address] [place] [address] Adjustment disorder with mixed anxiety and depressed mood* Allergies Active Allergy Reactions Criticality Noted Date Comments Lisinopril Cough 05/04/2022 documented as of this encounter (statuses as of 09/23/2023) Medications Medication Sig Dispensed Refills Start Date [...] goal of less than 7.0% ([facility]),Elevated BUN,Dehydration Take 1 Tablet by mouth [...] rest sitting at times., Reported on 05/14/2023 Breztri Aerosphere 160-9-4.8 MCG/ACT Inhalation Aerosol (Budeson-Glycopyrrol -Formoterol) Inhale [...] hypoxia, on home oxygen therapy ([facility]),IPF (idiopathic pulmonary fibrosis) ([facility]),Type 2 diabetes mellitus with hemoglobin A1c goal of less than 7.0% ([facility]),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 Take 2 [...] goal of less than 7.0% ([facility]),Dyslipidemia, goal LDL below 100 TAKE 1 TABLET BY MOUTH EVERY DAY IN THE MORNING 90 Tablet 1 06/12/2023 Active Jardiance 10 MG Oral Tablet (Empagliflozin)Indic ations:Type 2 diabetes mellitus with hemoglobin A1c goal of less than 7.0% ([facility]),Chronic respiratory failure with hypoxia, on home oxygen therapy ([facility]),IPF (idiopathic pulmonary fibrosis) ([facility]),FCI (current) use of systemic steroids TAKE 1 TABLET BY MOUTH EVERY DAY IN THE MORNING 30 Tablet 5 07/13/2023 Active Losartan Potassium 25 MG Oral Tablet (Cozaar)Indications: Type 2 diabetes mellitus with hemoglobin A1c goal of less than 7.0% ([facility]),HTN, goal below 130/80 Take 1 Tablet [...] 2.5 mgIndications:IPF (idiopathic pulmonary fibrosis) ([facility]) 2.5 mg NEBULIZER PRN 12/05/2022 12/05/2023 Active Benralizumab (Fasenra) prefilled syringe 30 mgIndications:Severe persistent asthma, unspecified whether complicated 30 mg SC [id number] 06/13/2023 12/24/2024 Active documented as of this encounter (statuses as of 09/23/2023) Active Problems Problem Noted Date Diagnosed Date Dyslipidemia, goal LDL below 100 07/29/2023 [facility]CI (current) use of systemic steroids Palliative care [...] as of this encounter (statuses as of 09/23/2023) Resolved Problems Problem Noted Date Diagnosed Date Resolved Date Acute pulmonary edema 11/30/20222022 Bacteremia due to Staphylococcus epidermidis 3 12/10/2022 Multifocal pneumonia 11/26/2022 023 Severe persistent asthma with exacerbation 07/31/2022 12/10/2022 Severe obesity with body mas s index (BMI) of 35.0 to 39.9 with serious comorbidity 11/20/2021 documented as of this encounter (statuses as of 09/23/2023) Immunizations Name Administration Dates Next Due COVID-19 [...] No 05/08/2023 documented as of this encounter Progress Notes * Daisy Servin LCSW - 09/23/2023 1:21 PM EDT PRIMARY CARE BEHAVIORAL HEALTH FOLLOW-UP 09/23/2023 Length of visit: 50 minutes (1:21 pm - 2:10 pm) Type of Visit: individual Treatment session number: 1 AGENDA & ACTION PLAN: -Check in-Nicolasa shared update of her day expressing some frustrations with daily activities relatedto getting around. Therapist provided empathetic listening and validation of feelings. -Today Nicolasa sharing about updates to health. She and family will be meeting with Hospice for an introductory and information gathering visit to find out more about services and how they are providedand to discuss when the best time for them to be implemented. We spent time processing and exploring Nicolasa's thoughts about end of life, how she is currently feeling and where she is in the process of considering Hospice services. She reports she gets tired of struggling but is not yet ready to "leave this world". Therapist providing opportunity to express thoughts and feelings around this subject using open ended, closed ended, reflective listening and validation of feelings. -Nicolasa also sharing about having conversations with family about end of life and her feelings and thoughts. Therapist provided positive reinforcement and discussed normalizing these discussions abouttalking about them when she is able and ready and having more than one conversation can be helpful in having family understand better what she is feeling and thinking and promoting their thoughts andfeelings. -At end of visit Nicolasa talking about upcoming visit from daughter and looking forward to this visitin November. Optional: Interventions addressed in treatment thus far: Treatment/Intervention Visit 09/23/2023 1 2 3 4 5 6 Behavioral activation Behavior modification for poor health behaviors (e.g., smoking cessation) Breathing re-training mindfulness training Cognitive restructuring/diffusion Exercise/physical activity Problem-solving Psychoeducation Exposure and/or response prevention Supportive therapy x Sleep hygiene Stimulus control Time in bed restriction Conduct WHO (BHCM,JOVAN,MTM) MENTAL STATUS EXAMINATION: No changes to mental status since last visit. No change in suicide or homicide risk status since last visit. Level of suicide completion risk:Low Risk (wish to or ideation without method, intent, plan, orbehavior; modifiable risk factors and strong protective factors; or no reported history of ideationor behavior): Pt has agreed to return for further psychotherapy. Adjustment disorder with mixed anxiety and depression. RETURN 2 WEEKS for individual cognitive behavioral therapy. Daisy Servin LCSW Primary Care Behavioral Health Psychology [facility] [address] [facility] [place] [address] documented in this encounter Plan of Treatment Upcoming Encounters Date Type Department Care Team (Late st Contact Info) Description 09/26/2023 1:00 PM EDT Nurse Only Pulmonary Medicine, [facility] [address] [place] [address] Gw, Nurse Pulmonary [address] [place] [address] 10/14/2023 1:00 PM EDT Therapy Psychology [facility] [address] [place] [address] Daisy Servin LCSW [address] [place] [address] 10/28/2023 1:40 PM EDT Office Visit Pulmonary Medicine, [facility] [address] [facility] [place] [address] Frank Finch MD [address] [place] [address] 11/04/2023 3:00 PM EDT Office Visit General Internal Medicine [facility] [address] [facility] [place] [place] [address] Rizwana Antunez MD [address] [place] [address] 12/02/2023 11:00 AM EDT Imaging Radiology, [facility] [address] [facility] [place] [address] 03/02/2024 1:30 PM EST Office Visit Cardiology, [facility] [address] [facility] [place] [address] Ni Kay PA-C [address] [facility] [place] [address] 04/02/2024 1:00 PM EST Imaging Radiology [facility] [facility] [address] [facility] [place] [address] Health Maintenance Due Date Last Done Comments [...] Not on filedocumented as of this encounter Visit Diagnoses Diagnosis Adjustment disorder with mixed anxiety and depressed mood- Primary documented in this encounter Advance Directives Documents on File Type Date Recorded 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 Yes Cardiac Drugs? Yes Care Teams Supervisor Frame Assembly Relationship Specialty Start Date End Date Rizwana Antunez MD [address] [place] [address] PCP - General Internal Medicine 03/28/22 documented as of this encounter
--- OUTSIDE RECORDS SUMMARY | 2023-09-27 14:23 | External Medical Summary | Summary of Care ---
Author Name Unknown Organization [facility] Address [address] [facility] [place] [address] Phone [phone] Care Team Providers Care Camp Assistant Name Role Phone Rizwana Antunez MD Primary Care Provider [phone] Reason for Visit * Reason Comments Psychotherapy Encounter Details Date Type Department Care Team (Late st Contact Info) Description 08/28/2023 2:00 PM EDT Therapy Psychology [facility] [address] [place] [address] Daisy Servin, [facility] [address] [place] [address] Adjustment disorder with mixed anxiety and depressed mood* Allergies Active Allergy Reactions Criticality Noted Date Comments Lisinopril Cough 05/04/2022 documented as of this encounter (statuses as of 08/28/2023) Medications Medication Sig Dispensed Refills Start Date [...] hemoglobin A1c goal of less than 7.0% ([facility]),Elevated BUN,Dehydration Take 1 Tablet by mouth in [...] failure with hypoxia, on home oxygen therapy ([facility]),IPF (idiopathic pulmonary fibrosis) ([facility]),Type 2 diabetes mellitus with hemoglobin A1c goal of less than 7.0% ([facility]),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 Take 2 [...] hemoglobin A1c goal of less than 7.0% ([facility]),Dyslipidemia, goal LDL below 100 TAKE 1 TABLET BY MOUTH EVERY DAY IN THE MORNING 90 Tablet 1 06/12/2023 Active Jardiance 10 MG Oral Tablet (Empagliflozin)Indic ations:Type 2 diabetes mellitus with hemoglobin A1c goal of less than 7.0% ([facility]),Chronic respiratory failure with hypoxia, on home oxygen therapy ([facility]),IPF (idiopathic pulmonary fibrosis) ([facility]),half-way (current) use of systemic steroids TAKE 1 TABLET BY MOUTH EVERY DAY IN THE MORNING 30 Tablet 5 07/13/2023 Active Losartan Potassium 25 MG Oral Tablet (Cozaar)Indications: Type 2 diabetes mellitus with hemoglobin A1c goal of less than 7.0% ([facility]),HTN, goal below 130/80 Take 1 Tablet by [...] inhalation solution 2.5 mgIndications:IPF (idiopathic pulmonary fibrosis) ([facility]) 2.5 mg NEBULIZER PRN 12/05/2022 12/05/2023 Active Benralizumab (Fasenra) prefilled syringe 30 mgIndications:Severe persistent asthma, unspecified whether complicated 30 mg SC [id number] 06/13/2023 12/24/2024 Active documented as of this encounter (statuses as of 08/28/2023) Active Problems Problem Noted Date Diagnosed Date Dyslipidemia, goal LDL below 100 07/29/2023 half-way (current) use of systemic steroids Palliative care [...] as of this encounter (statuses as of 08/28/2023) Resolved Problems Problem Noted Date Diagnosed Date Resolved Date Acute pulmonary edema 11/30/20222022 Bacteremia due to Staphylococcus epidermidis 3 12/10/2022 Multifocal pneumonia 11/26/2022 023 Severe persistent asthma with exacerbation 07/31/2022 12/10/2022 Severe obesity with body mas s index (BMI) of 35.0 to 39.9 with serious comorbidity 11/20/2021 documented as of this encounter (statuses as of 08/28/2023) Immunizations Name Administration Dates Next Due COVID-19 [...] of this encounter Progress Notes * Daisy Servin, CHATA - 08/28/2023 2:05 PM EDT PRIMARY CARE BEHAVIORAL HEALTH FOLLOW-UP 08/28/2023 Length of visit: 50 minutes (2:10 pm - 3:00 pm) Type of Visit: individual Treatment session number: 1 AGENDA & ACTION PLAN: -Today Nicolasa shared update of of her management of health-chronic health condition. She reports obtainment of a scooter, a bedside commode or verismode for her lower level. She shared her perspectiveof these additions in her care. We spent time processing how these items are of benefit with therapist encouraging expression of thoughts and feelings through empathetic listening and validation of feelings and correlation with her values and desire for maintaining autonomy. -Therapist followed up regarding her use of CBT principles we discussed at last session and use of thought record. She reports she did not fill out paper but utilized concepts and shared with therapist the ways she worked to think differently about her situation and the follow up changes in her behavior and communication with family. -At end of session therapist discussed the use of mindfulness to promote being in the moment, relaxation and two exercises were given to her for practice or usage. Optional: Interventions addressed in treatment thus far: Treatment/Intervention Visit 08/28/2023 1 2 3 4 5 6 Behavioral activation Behavior modification for poor health behaviors (e.g., smoking cessation) Breathing re-training mindfulness training x Cognitive restructuring/diffusion Exercise/physical activity Problem-solving Psychoeducation x Exposure and/or response prevention Supportive therapy x [...] psychotherapy. Adjustment disorder with mixed anxiety and depressed mood. RETURN 2 WEEKS for individual cognitive behavioral therapy. Daisy Servin LCSW Primary Care Behavioral Health Psychology [facility] [address] [facility] [place] [address] documented in this encounter Plan of Treatment Upcoming Encounters Date Type Department Care Team (Late st Contact Info) Description 09/09/2023 10:00 AM EDT Telemedicine Palliative Medicine, [facility] [address] [facility] 5th [place] [address] Amarilys Ramirez MD [address] [place] [address] 09/23/2023 1:00 PM EDT Therapy Psychology [facility] [address] [place] [address] Daisy Sevrin LCSW [address] [place] [address] 09/26/2023 1:00 PM EDT Nurse Only Pulmonary Medicine, [facility] [address] [place] [address] Gw, Nurse Pulmonary [address] [facility] [place] [address] 10/28/2023 1:40 PM EDT Office Visit Pulmonary Medicine, [facility] [address] [place] [address] Frank Finch MD [address] [place] [address] 11/04/2023 3:00 PM EDT Office Visit General Internal Medicine [facility] [address] [facility] [place] [address] Rizwana Antunez MD [address] [facility] [place] [address] 12/02/2023 11:00 AM EDT Imaging Radiology, [facility] [address] [facility] [address] 02/26/2024 1:30 PM EST Office Visit Cardiology, [facility] 132 [facility] [place] [address] Ni Kay PA-C [address] [facility] [place] [address] 04/02/2024 1:00 PM EST Imaging Radiology [facility] [address] [facility] [place] [address] Health Maintenance Due Date Last Done Comments [...] Documents on File Type Date Recorded Patient Pad Cutter Expl anation POLST 05/24/2023 9:25 AM POLST [...] Pacemaker? Yes Cardiac Drugs? Yes Care Teams Camp Assistant Relationship Specialty Start Date End Date Rizwana Antunez MD [address] [place] [address] PCP - General Internal Medicine 03/28/22 documented as of this encounter
--- OUTSIDE RECORDS SUMMARY | 2023-09-27 14:23 | External Medical Summary | Summary of Care ---
Author Name Unknown Organization [facility] Address [address] [place] [address] Phone [phone] Care Team Providers Care Aircraft Maintenance Engineer Name Role Phone Rizwana Antunez MD Primary Care Provider [phone] Encounter Details Date Type Department Care Team (Late st Contact Info) Description 09/09/2023 9:30 AM EDT Telemedicine Palliative Medicine, [facility] [address] [facility] 5th [place] [address] Amarilys Ramirez MD [address] [place], [place] [id number] IPF (idiopathic pulmonary fibrosis) ([facility])*; Encounter for palliative care; DNR (do not resuscitate); Acute on chronic respiratory failure with hypoxia (HCC) Allergies Active Allergy Reactions Criticality Noted Date Comments Lisinopril Cough 05/04/2022 documented as of this encounter (statuses as of 09/09/2023) Medications Medication Sig Dispensed Refills Start Date [...] hemoglobin A1c goal of less than 7.0% ([facility]),Elevated BUN,Dehydration Take 1 Tablet by mouth [...] rest sitting at times., Reported on 05/14/2023 Fly Aerosphere 160-9-4.8 MCG/ACT Inhalation Aerosol (Budeson-Glycopyrrol -Formoterol) [...] failure with hypoxia, on home oxygen therapy ([facility]),IPF (idiopathic pulmonary fibrosis) ([facility]),Type 2 diabetes mellitus with hemoglobin A1c goal of less than 7.0% ([facility]),skilled nursing (current) use of systemic steroids Take 2 [...] hemoglobin A1c goal of less than 7.0% ([facility]),Dyslipidemia, goal LDL below 100 TAKE 1 TABLET BY MOUTH EVERY DAY IN THE MORNING 90 Tablet 1 06/12/2023 Active Jardiance 10 MG Oral Tablet (Empagliflozin)Indic ations:Type 2 diabetes mellitus with hemoglobin A1c goal of less than 7.0% ([facility]),Chronic respiratory failure with hypoxia, on home oxygen therapy ([facility]),IPF (idiopathic pulmonary fibrosis) ([facility]),skilled nursing (current) use of systemic steroids TAKE 1 TABLET BY MOUTH EVERY DAY IN THE MORNING 30 Tablet 5 07/13/2023 Active Losartan Potassium 25 MG Oral Tablet (Cozaar)Indications: Type 2 diabetes mellitus with hemoglobin A1c goal of less than 7.0% ([facility]),HTN, goal below 130/80 Take 1 Tablet [...] inhalation solution 2.5 mgIndications:IPF (idiopathic pulmonary fibrosis) ([facility]) 2.5 mg NEBULIZER PRN 12/05/2022 12/05/2023 Active Benralizumab (Fasenra) prefilled syringe 30 mgIndications:Severe persistent asthma, unspecified whether complicated 30 mg SC [id number] 06/13/2023 12/24/2024 Active documented as of this encounter (statuses as of 09/09/2023) Active Problems Problem Noted Date Diagnosed Date Dyslipidemia, goal LDL below 100 07/29/2023 skilled nursing (current) use of systemic steroids Palliative care [...] as of this encounter (statuses as of 09/09/2023) Resolved Problems Problem Noted Date Diagnosed Date Resolved Date Acute pulmonary edema 11/30/20222022 Bacteremia due to Staphylococcus epidermidis 3 12/10/2022 Multifocal pneumonia 11/26/2022 023 Severe persistent asthma with exacerbation 07/31/2022 12/10/2022 Severe obesity with body mas s index (BMI) of 35.0 to 39.9 with serious comorbidity 11/20/2021 documented as of this encounter (statuses as of 09/09/2023) Immunizations Name Administration Dates Next Due COVID-19 [...] as of this encounter Progress Notes * Amarilys Ramirez MD - 09/09/2023 9:23 AM EDT Palliative Medicine Outpatient Progress Note IN HOME TELEMEDICINE VISIT [facility], [facility] [address] [place] [id number] Name: Nicolasa Gomez Date: 09/09/2023 I was in a hospital or clinic location. After connecting through televideo, patient was verified with two unique identifiers. Patient (or authorized legal service representative) was then informed that this was a Telemedicine visit and being conducted confidentially over secure lines. Methods to assure confidentiality were taken. Patient acknowledged consent and understanding of privacy and security of the Telemedicine visit. The patient agreed to participate. HPI: Nicolasa Gomez is a 73 year old female with pulmonary fibrosis seen in follow-up for goals ofcare and symptom management. Since last visit, she has gotten more DME equipment such as an electric scooter as well as a commode. She has enjoy going out a bit more with her scooter, she goes to apart that is right near her house and now her kids set up a attachment for the scooter to the car. Her breathing is slowly/progressively worsening. She is currently wearing 14L/min right now, when moves she is dropping low and not recovering quickly, o2 sats drop to 60%, one day got into car and was 44%, takes 10 min to get upto 80%. She feels short of breath with any sort of movement. At this point, she has not sure she wants to hospice just yet, but is open to hearing about it so that she is prepared for when she makes that decision. She would go to the hospital but she usually tries to avoid it as much as she can. Palliative symptoms: Pain: no Nausea/Vomiting: no Constipation: no, glad she has commode for times it is more urgent Confusion: no Sleep issues: no Dyspnea: with ANY activity Mood issues: no, but did get in touch w/counsellor Falls: no Appetite: good Other: no Examination: No vital signs as this is a telemedicine encounter Constitutional: no acute distress, chronically ill HENT: normocephalic, atraumatic. Eyes: anicteric, sclera and conjunctiva normal. Neck: no stridor Chest: normal respiratory effort Abdominal: nondistended Extremities: no edema Data Review: External notes reviewed: - Reviewed notes from Dr Finch, 08/19, plan was to continue prednisone - Reviewed notes from Daisy Servin on 08/27, therapy, she is doing well w/exercises provided Lab / Imaging Results: A1c 7.8% on 07/25/23 Information obtained from daughter and for collateral history Discussion with other team members: I discussed patient with hospice team Decision-making Capacity: Does Patient have Decisional Capacity? y Does Patient have a Healthcare Agent? Y, see prior Advanced Care Planning (see ACP Tab): AD in EMR: no POLST in EMR: yes from 05/24/23, DNR LIMITED ASSESSMENT/PLAN: Nicolasa Gomez is a 73 year old female seen in follow-up for goals of care and pain and symptom management. Progressively worsening interstitial lung disease, with chronic hypoxic respiratory failure (12-14L/min with exertion, 10L at rest) Is on Esbriet therapy through pulmonary with prednisone 20mg daily and azithromycin every other day Is open to meeting with a hospice team to get more information, would be willing mid September once daughter is back from vacation Anxiety/depression w/adjustment disorder Doing well w/therapy Ambulatory dysfunction Now has bedside commode Goals of care/Palliative care encounter Wants to avoid hospital stay as much as possible Code status if admitted: DNR/DNI Follow up in 4-6 weeks, nurse call in 1 weeks. They are able to do video visits. Next visit with me. I spent a total of 41 minutes on the date of service in preparation, delivery, and documentation ofthe care provided to Nicolasa Gomez excluding any time spent in the performance of separately billed services. Amarilys Ramirez MD [facility] Palliative Medicine [phone] documented in this encounter Plan of Treatment Upcoming Encounters Date Type Department Care Team (Late st Contact Info) Description 09/23/2023 1:00 PM EDT Therapy Psychology [facility] [address] [facility] [place] [address] Daisy Servin, [employer]AL[employer] CONTROL LAB TECH [address] [facility] [place] [address] 09/26/2023 1:00 PM EDT Nurse Only Pulmonary Medicine, [facility] [address] [facility] [place] [address] Gw, Nurse Pulmonary [address] [place], [place] [address] [id number] 10/28/2023 1:40 PM EDT Office Visit Pulmonary Medicine, [facility] [address] [facility] [place] [address] Frank Finch MD [address] [address] 11/04/2023 3:00 PM EDT Office Visit General Internal Medicine [facility] [place] [address] [facility] [place] [address] Rizwana Antunez MD [address] [place] [address] 12/02/2023 11:00 AM EDT Imaging Radiology, [facility] [address] [facility] [address] 02/26/2024 1:30 PM EST Office Visit Cardiology, [facility] [address] [facility] [place] [address] Ni Kay PA-C [address] [place] [address] [place] [address] 04/02/2024 1:00 PM EST [facility] [address] [facility] [place] [address] Health Maintenance Due Date Last Done Comments [...] as of this encounter Visit Diagnoses Diagnosis IPF (idiopathic pulmonary fibrosis) (HCC)- Primary Idiopathic pulmonary fibrosis Encounter for palliative care DNR (do not resuscitate) Do not resuscitate status Acute on chronic respiratory failure with hypoxia (HCC) documented in this encounter Advance Directives Documents on File Type Date Recorded Patient Turn Down Worker Expl anation POLST 05/24/2023 9:25 AM POLST [...] Pacemaker? Yes Cardiac Drugs? Yes Care Teams Aircraft Maintenance Engineer Relationship Specialty Start Date End Date Rizwana Antunez MD [address] [place] [address] PCP - General Internal Medicine 03/28/22 documented as of this encounter
--- OUTSIDE RECORDS SUMMARY | 2023-09-27 14:24 | External Medical Summary | Summary of Care ---
Author Name Unknown Organization [facility] Address [address] [place] [place] [address] Phone [phone] Care Team Providers Care Chief Steward/Stewardess Name Role Phone Rizwana Antunez MD Primary Care Provider [phone] Reason for Visit * Reason Comments Outpatient Testing Encounter Details Date Type Department Care Team (Late st Contact Info) Description 07/25/2023 2:30 PM EDT Laboratory Laboratory, [facility] [address] [place] [address] [facility] [address] [facility] [place] [address] [employer] Other*[id number]; Need for hepatitis C screening test; Hepatitis B vaccination status unknown; Type 2 diabetes mellitus with hemoglobin A1c goal of less than 7.0% (HCC); Dyslipidemia, goal LDL below 100; Encounter for long-term (current) use of medications Allergies Active Allergy Reactions Criticality Noted Date Comments Lisinopril Cough 05/04/2022 documented as of this encounter (statuses as of 07/25/2023) Medications Medication Sig Dispensed Refills Start Date End Date Status Ipratropium-Albutero l 0.5-2.5 (3) MG/3ML Inhalation Solution Inhale 3 mL via nebulizer every 6 hours as needed. 0 11/05/2022 Active Probiotic Acidophilus Oral CapsuleIndications:H ospital discharge follow-up,Coagulase negative Staphylococcus bacteremia 2 daily 0 11/08/2022 Active Loratadine 10 MG Oral Tablet (Claritin)Indication s:Environmental and seasonal allergies Take 1 Tablet by mouth in the morning. 30 Tablet 11 12/10/2022 Active Additional Information Patient taking differently:10 mg OralPRN, Rhinitis, Reported on 12/24/2022 Fasenra 30 MG/ML Subcutaneous Solution Prefilled Syringe Inject 1 mL under the skin Every Month. Every 4 weeks 0 12/04/2022 Active Multi-Vitamins Oral Tablet Take 1 Tablet by mouth in the morning. 0 Active Repaglinide 0.5 MG Oral Tablet (Prandin)Indications :Type 2 diabetes mellitus with hemoglobin A1c goal of less than 7.0% ([facility]),Elevated BUN,Dehydration Take 1 Tablet by mouth in the morning and 1 Tablet at noon and 1 Tablet in the evening. Take before meals. If sugar >140 (using temporarily as holding metformin due to gfr 33 with diuretic use, STOP torsemide and potassium), stat lab 12/28/22. 90 Tablet 0 12/24/2022 Active oxygen IN GAS 6 lpm during the day and 4 lpm at bedtime, titrate to 10-15 liters on exertion to keep saturation >90% since hosp DC 1 Each 0 01/10/2023 Active Additional Information Patient taking differently: [...] the evening. 10.7 g 11 01/16/2023 Active Losartan Potassium 50 MG Oral Tablet (Cozaar) Take 0.5 Tablets by mouth every evening. Restart 03/26/2023-has at home 0 03/26/2023 Active Pirfenidone 801 MG Oral Tablet (Esbriet)Indications :Chronic idiopathic pulmonary fibrosis (HCC),Chronic respiratory failure with hypoxia, on home oxygen therapy ([facility]) Take 801 mg by mouth in the morning and 801 mg at noon and 801 mg before bedtime. one pill three times a day. 270 Tablet 5 05/07/2023 4 Active Omeprazole 20 MG Oral Tablet Delayed ReleaseIndications:G astroesophageal reflux disease without esophagitis Take 1 Tablet by mouth in the morning. Still taking. 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 (Restart 1 tab 01/18/2023) inc 2 tabs 01/30/2023, inc 3 tabs 03/26/2023, inc 4 tabs 05/15/2023 360 Tablet 1 05/15/2023 Active Azithromycin 250 MG Oral Tablet (Zithromax Z-Guillermo) Take 1 Tablet by mouth once a day on Saturday, Saturday, and Saturday only for 90 doses. 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 TAKE 1 TABLET BY MOUTH EVERY DAY IN THE MORNING 30 Tablet 5 07/13/2023 Active predniSONE 20 MG Oral Tablet (Deltasone) TAKE 1 TABLET BY MOUTH EVERY DAY IN THE MORNING 30 Tablet 0 07/23/2023 Active Hospital, Clinic, or Other Facility Administered Medication Ordered Dose Route Frequency Start Date End Date Status Albuterol Sulfate (Proventil) (2.5 MG/3ML) 0.083% inhalation solution 2.5 mgIndications:IPF (idiopathic pulmonary fibrosis) (HCC) 2.5 mg NEBULIZER PRN 12/05/2022 12/05/2023 Active Benralizumab (Fasenra) prefilled syringe 30 mgIndications:Severe persistent asthma, unspecified whether complicated 30 mg SC [id number] 06/13/2023 12/24/2024 Active documented as of this encounter (statuses as of 07/25/2023) Active Problems Problem Noted Date Diagnosed Date Palliative care encounter 05/09/2023 Goals of care, [...] as of this encounter (statuses as of 07/25/2023) Resolved Problems Problem Noted Date Diagnosed Date Resolved Date Acute pulmonary edema 11/30/20222022 Bacteremia due to Staphylococcus epidermidis 12/10/2022 Multifocal pneumonia 11/26/2022 023 Severe persistent asthma with exacerbation 07/31/2022 12/10/2022 Severe obesity with body mas s index (BMI) of 35.0 to 39.9 with serious comorbidity 11/20/2021 documented as of this encounter (statuses as of 07/25/2023) Immunizations Name Administration Dates Next Due COVID-19 [...] No 05/08/2023 documented as of this encounter Plan of Treatment Upcoming Encounters Date Type Department Care Team (Late st Contact Info) Description 07/29/2023 3:00 PM EDT Office Visit General Internal Medicine [facility] [address] [facility] [place] [address] Rizwana Antunez MD [address] [facility] [place] [address] 08/01/2023 1:45 PM EDT Nurse Only Pulmonary Medicine, [facility] [address] [place] [address] Gw, Nurse Pulmonary [address] [facility] [facility] [place] [address] 08/07/2023 2:00 PM EDT Therapy Psychology [facility] [address] [place] [address] Daisy Servin, INDEPENDENT FREIGHT AGENT [address] [place] [address] 08/08/2023 11:00 AM EDT Telemedicine Palliative Medicine, [facility] [address] [facility] 5th [place] [address] Radha Almazan PAJose ManuelC [address] [place] [address] 08/14/2023 1:30 PM EDT Office Visit Cardiology, [facility] [address] [facility] [place] [address] Ni Kay PA-C [address] [place] [address] 10/28/2023 1:40 PM EDT Office Visit Pulmonary Medicine, [facility] [address] [facility] [place] [address] Frank Finch MD [address] [place] [address] 12/02/2023 11:00 AM EDT Imaging Radiology, [place] [id number] [facility] [address] 04/02/2024 1:00 PM EST Imaging Radiology [facility] [address] [facility] [address] [facility] [place] [address] Pending Results Name Type Priority Associated Diagnoses Date /Time MYCODE SUBSEQUENT ADULT Lab Routine [employer] Other*[id number] 07/25/2023 2:25 PM EDT HEPATITIS C ANTIBODY Lab Routine Need for hepatitis C screening test 07/25/2023 2:25 PM EDT HEPATITIS B SURFACE ANTIBODY Lab Routine Hepatitis B vaccination status unknown 07/25/2023 2:25 PM EDT ALT Lab Routine Type 2 diabetes mellitus with hemoglobin A1c goal of less than 7.0% ([facility]) Dyslipidemia, goal LDL below 100 07/25/2023 2:25 PM EDT HEMOGLOBIN A1C Lab Routine Type 2 diabetes mellitus with hemoglobin A1c goal of less than 7.0% (HCC) 07/25/2023 2:25 PM EDT BASIC METABOLIC PANEL Lab Routine Type 2 diabetes mellitus with hemoglobin A1c goal of less than 7.0% (HCC) 07/25/2023 2:25 PM EDT LIPID PANEL WITH DIRECT LDL IF TG IS HIGH Lab Routine Type 2 diabetes mellitus with hemoglobin A1c goal of less than 7.0% (HCC) Dyslipidemia, goal LDL below 100 07/25/2023 2:25 PM EDT VITAMIN B12 Lab Routine Type 2 diabetes mellitus with hemoglobin A1c goal of less than 7.0% (HCC) Encounter for long-term (current) use of medications 07/25/2023 2:25 PM EDT MYCODE SST1 Lab Routine [employer] Other*[id number] 07/25/2023 2:25 PM EDT MYCODE SST2 Lab Routine [employer] Other*[id number] 07/25/2023 2:25 PM EDT Health Maintenance Due Date Last Done Comments Zoster Vaccines (2 of 3) 05/21/2014 03/26/2014 Depression, Most Recent Scor e >= 10 (will fire each visit until score < 10) 07/20/2023 07/19/2023 Diabetic Eye Exam Discontinued 01/16/2019 Cologuard Discontinued 02/16/2022, 08/2021, 02/13/2022 Influenza Vaccine (FLU shot) Completed 12/24/2022, 12/12/2021 COVID-19 Vaccine Completed 01/26/2023, , 07/07/2021, Additional history exists Diabetic Foot Exam Discontinued 01/30/2023, 01/29/2022 Albumin/Creatinine Ratio Discontinued 03/26/2023, 01/10 Colorectal Cancer Screening Discontinued Fecal Occult Blood Test Discontinued 03/26/2023 Colonoscopy Discontinued Sigmoidoscopy Discontinued documented as of this encounter Medical Devices Not on filedocumented as of this encounter Visit Diagnoses Diagnosis [employer] Other*[id number] Need for hepatitis C screening test Special screening examination for other specified viral diseases Hepatitis B vaccination status unknown Type 2 diabetes mellitus with hemoglobin A1c goal of less than 7.0% (HCC) Dyslipidemia, goal LDL below 100 Other and unspecified hyperlipidemia Encounter for long-term (current) use of medications Encounter for long-term (current) use of other medications documented in this encounter Advance Directives Documents on File Type Date Recorded Patient Diploma Dental Assistant Expl anation POLST 05/24/2023 9:25 AM POLST ([place] ited DNR) Latest Code Status on File Code Status Date Activated Date Inactivated Comments Full Code 05/08/2023 8:20 PM 05/11/2023 6:30 PM This o rder reflects the patients wishes and were consensually agreed upon. Question Answer Comments Discussion of Advance Directives occurred with: Patient Does the patient have a Living Will? No Does the patient have Health Care Power of [place]? No Code Status History Code Status Date Activated Date Inactivated Comments Limited Code 11/26/2022 8:55 PM 12/04/2022 10:12 PM This order reflects the patients wishes and were consensually agreed upon. Question Answer Comments Discussion of Advance Directives occurred with: Patient Does the patient have a Living Will? No Does the patient have Health Care Power of [place]? No Bag Valve Device? No Intubation? No Cardiac Compressions? Yes Defibrillation? Yes Synchronized Cardioversion? Yes External Pacemaker? Yes Cardiac Drugs? Yes Care Teams Chief Steward/Stewardess Relationship Specialty Start Date End Date Rizwana Antunez MD [address] [place] [address], [place] [address] PCP - General Internal Medicine 03/28/22 documented as of this encounter
--- OUTSIDE RECORDS SUMMARY | 2023-09-27 14:24 | External Medical Summary ---
Author Name Unknown Address Unknown Organization [facility] [facility] [address] [place] [address] Laboratory Report Ordering Provider Test Date Status GILBERTO DELCID 07/25/2023 14:25:08 Final Observation Date Value Abnormality Reference (Units ) Status ALT (Alanine aminotransferase) 07/25/2023 14:25:08 16 10-35 (U/L) Final Performing Location [facility] [address] [place] [address]
--- OUTSIDE RECORDS SUMMARY | 2023-09-27 14:24 | External Medical Summary | Summary of Care ---
Author Name Unknown Organization [facility] Address [address] [place] [address] Phone [phone] Care Team Providers Care Executive Pilot Name Role Phone Rizwana Antunez MD Primary Care Provider [phone] Reason for Visit * Reason Comments Return Visit Encounter Details Date Type Department Care Team (Late st Contact Info) Description 07/29/2023 3:00 PM EDT Office Visit General Internal Medicine [facility] [address] [place] [address] Rizwana Antunez MD [address] [place] [address] Type 2 diabetes mellitus with hemoglobin A1c goal of less than 7.0% ([facility])*; HTN, goal below 130/80; Dyslipidemia, goal LDL below 100; IPF (idiopathic pulmonary fibrosis) ([facility]); Acute on chronic respiratory failure with hypoxia ([facility]); Dependence on continuous supplemental oxygen; 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; Elevated IgE level; Encounter for screening mammogram for breast cancer; Screening for osteoporosis; Gastroesophageal reflux disease without esophagitis; Need for hepatitis B vaccination; Nutritional anemia, unspecified Allergies Active Allergy Reactions Criticality Noted Date Comments Lisinopril Cough 05/04/2022 documented as of this encounter (statuses as of 08/19/2023) Medications Medication Sig Dispensed Refills Start Date [...] hemoglobin A1c goal of less than 7.0% ([facility]),Elevated BUN,Dehydration Take 1 Tablet by [...] sitting at times., Reported on 05/14/2023 Fly ThriveOn 160-9-4.8 MCG/ACT Inhalation Aerosol (Budeson-Glycopyrro l-Formoterol) Inhale 2 Puffs by mouth in the morning and 2 Puffs in the evening. 10.7 g 11 01/16/2023 Active Omeprazole 20 MG Oral Tablet Delayed ReleaseIndications: Gastroesophageal reflux disease without esophagitis Take 1 Tablet by mouth in the morning. Still taking. 05/15/2023 Active metFORMIN HCl ER 500 MG Oral Tablet Extended Release 24 Hour (Glucophage XR)Indications:Templer Head gabrielle respiratory failure with hypoxia, on home oxygen therapy ([facility]),IPF (idiopathic pulmonary fibrosis) ([facility]),Type 2 diabetes mellitus with hemoglobin A1c goal of less than 7.0% ([facility]),correction (current) use of systemic steroids Take 2 Tablets by mouth daily with dinner. (Restart 1 tab 01/18/2023) inc 2 tabs 01/30/2023, inc 3 tabs 03/26/2023, inc 4 tabs 05/15/2023 360 Tablet 1 05/15/2023 Active Azithromycin 250 MG Oral Tablet (Zithromax Z-Guillermo) Take 1 Tablet by mouth once a day on Saturday, Saturday, and Saturday only for 90 doses. 90 Tablet 05/24/2023 12/19/19 24 Active Atorvastatin Calcium 10 MG Oral Tablet (Lipitor)Indication s:Type 2 diabetes mellitus with hemoglobin A1c goal of less than 7.0% ([facility]),Dyslipidemia, goal LDL below 100 TAKE 1 TABLET BY MOUTH EVERY DAY IN THE MORNING 90 Tablet 1 06/12/2023 Active Jardiance 10 MG Oral Tablet (Empagliflozin)Arabella cations:Type 2 diabetes mellitus with hemoglobin A1c goal of less than 7.0% ([facility]),Chronic respiratory failure with hypoxia, on home oxygen therapy ([facility]),IPF (idiopathic pulmonary fibrosis) ([facility]),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 Restart 03/26/2023 90 Tablet 1 07/29/2023 Active Ipratropium-Albuter ol 0.5-2.5 (3) MG/3ML Inhalation Solution Inhale 3 mL via nebulizer every 6 hours as needed. 11/05/2022 08/01/19 24 Discontinue d(Refill) Losartan Potassium 50 MG Oral Tablet (Cozaar) Take 0.5 Tablets by mouth every evening. Restart 03/26/2023-has at home 03/26/2023 07/29/19 24 Discontinue d(Refill) Pirfenidone 801 MG Oral Tablet (Esbriet)Indication s:Chronic idiopathic pulmonary fibrosis (HCC),Chronic respiratory failure with hypoxia, on home oxygen therapy ([facility]) Take 801 mg by mouth in the morning and 801 mg at noon and 801 mg before bedtime. one pill three times a day. 270 Tablet 5 05/07/2023 08/05/19 24 Hospital, Clinic, or Other Facility Administered Medication Ordered Dose Route Frequency Start Date End Date Status Albuterol Sulfate (Proventil) (2.5 MG/3ML) 0.083% inhalation solution 2.5 mgIndications:IPF (idiopathic pulmonary fibrosis) ([facility]) 2.5 mg NEBULIZER PRN 12/05/2022 12/05/2023 Active Benralizumab (Fasenra) prefilled syringe 30 mgIndications:Severe persistent asthma, unspecified whether complicated 30 mg SC [id number] 06/13/2023 12/24/2024 Active documented as of this encounter (statuses as of 08/19/2023) Active Problems Problem Noted Date Diagnosed Date Dyslipidemia, goal LDL below 100 07/29/2023 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 Palliative care [...] as of this encounter (statuses as of 08/19/2023) Resolved Problems Problem Noted Date Diagnosed Date Resolved Date Acute pulmonary edema 11/30/20222022 Bacteremia due to Staphylococcus epidermidis 3 12/10/2022 Multifocal pneumonia 11/26/2022 023 Severe persistent asthma with exacerbation 07/31/2022 12/10/2022 Severe obesity with body mas s index (BMI) of 35.0 to 39.9 with serious comorbidity 11/20/2021 documented as of this encounter (statuses as of 08/19/2023) Immunizations Name Administration Dates Next Due COVID-19 mRNA, LNP-s, No Pre serve, 2-Dose Series (Moderna) 04/26/2020,03/29/2020 COVID-19, LNP-s, No Preserve , Mir-sucrose, Ages 12+ (IdeaOffer) 01/08/2022 COVID-19, mRNA, LNP-s, PF, B ooster, 100mcg/0.5mg (Moderna) 07/07/2021,01/16/2021 Pneumococcal Conjugate Vacc, 13 Valent (Prevnar) 11/27/2018 Pneumococcal Polysaccharide PPV23 (Pneumovax) RSV Vac., Recomb, Adjuvant, PF,0.5 Ml (Arexvy) 1 03/28/2022 Seasonal Influenza, Quadrivalent Hd (Fluzone Hd) 12/24/2022,12/12/2021 Varicella Zoster Vaccine (Adult) 03/26/2014 documented as of this encounter Social History Tobacco Use Types Packs/Day Years Used Date Smoking Tobacco: Never Smokeless Tobacco: Never Tobacco Cessation:Counseling Given: Not Answered Comments:Trivial prior smoking in college Alcohol Use Standard Drinks/Week Comments [...] on file documented as of this encounter Last Filed Vital Signs Vital Sign Reading Time Taken Comments Blood Pressure 122/68 07/29/2023 3:32 PM EDT Pulse 101 07/29/2023 3:32 PM EDT Temperature 36.9 C (98.5 F) 07/29/2023 3:32 PM ED T Respiratory Rate 16 07/29/2023 3:32 PM EDT Oxygen Saturation 89% 07/29/2023 3:32 PM EDT Inhaled Oxygen Concentration - - Weight 75.1 kg (165 lb 9.6 oz) 07/29/2023 3:32 P M EDT Height - - Body Mass Index 30.29 07/25/2023 1:23 PM EDT documented in this encounter Functional Status Functional Status Response [...] as of this encounter Progress Notes * Rizwana Antunez MD - 07/29/2023 3:37 PM EDT SUBJECTIVE: Nicolasa Gomez is a 72 year old female. Chief Complaint Patient presents with Return Visit HPI: Patient presents today for f/u Wt Readings from Last 6 Encounters: 07/29/23 75.1 kg (165 lb 9.6 oz) 07/25/23 74.8 kg (165 lb) 05/24/23 74.4 kg (164 lb) 05/22/23 74.8 kg (164 lb 14.4 oz) 05/15/23 75.2 kg (165 lb 11.2 oz) 05/14/23 76 kg (167 lb 8.8 oz) BP Readings from Last 6 Encounters: 07/29/23 122/68 07/25/23 140/84 05/24/23 118/60 05/22/23 147/83 05/15/23 128/66 05/11/23 140/77 Patient with a history of type 2 diabetes since 2018, hypertension, GERD, osteoporosis, allergic rhinitis, severe persistent asthma with chronic idiopathic pulmonary fibrosis diag 2018 when lived in [place], chronic respiratory failure with hypoxia on oxygen therapy 4-6 L at rest and 6-10 L with activity ,severe obesity with gradual /intentional wt loss. See detailed notes 03/2023. Transthoracic echo-10/29/2022-EF 65-70%, no evidence of mass or vegetation, no pulmonary hypertension, grade 1 diastolic dysfunction to similar to a previous echo from 08/09/2022 which showed EF 55-59%,no wall motion abnormalities or pulmonary hypertension. 01/16/23-ECHO--EF 60%, RV systolic function nl,mild MR, Mod pulmonary hypertension , gr 2 DD,PASP 60mm Hg 12/28/2022-EKG NSR at 81 be p.m., nonspecific T-wave flattening, subtle anterior T-wave inversions - cardiology Dr. Valdivia consult 01/01/23-for 2-1 AV block transient-felt possibly due to high vagal tone during meal and monitor off beta-kunal. 05/24/2385-UmPfczuve-gh pred 20mg/d and + azithromycin-MWF -maintannece, high flow O2 10L rest/hs, 12 L activity--ct Fasenra q 8 wks, Breztri 2 p bid 06/01--Admitted to the hospital in October, November, December for acute on chronic respiratory high failure with hypoxia calcium asthma exacerbation. Attempts at weaning prednisone brings back her symptoms. She had comprehensive evaluation at [facility] end of March 2023 and felt nota candidate for lung transplant. Readmitted 05/08/23 to 05/11/2023 at [facility] Took Z-Guillermo 05/06/2023 Seen by pulmonology, started on IV Solu-Medrol and transition to oral prednisone and decision to keep her at 20 mg daily. She is using oxygen 10 to 12 L during the day and 10 L at bedtime titrating to keep sats greater than 90%, while sitting she usually is at 8 L Palliative Medicine referral was placed, they have a family meeting scheduled 05/22/23 and with pul05/24/2304/03-she had requested a scooter, had PT evaluation, states [facility] will be sending paperwork -felt it was too big and did not get, has a wheelchair which she propels with O2 tank attachments. 05/08/23--CXR: Chronic interstitial lung disease with mainly peripheral interstitial thickening/fibrotic changes and diffuse bronchiectasis appears slightly more extensive than prior. A component of interstitial pneumonia can not be Excluded 05/08/23-CT chest-1. No evidence of central pulmonary embolism. Smaller peripheral pulmonary artery branches are not opacified well enough for comment. 2. Chronic interstitial lung disease/interstitial fibrosis with scattered areas of subpleural honeycombing and diffuse bronchiectasis, similar to prior. Mild reactive mediastinal lymphadenopathy, stable. 3. Moderate plaque in the aorta. Aberrant right subclavian artery 08/01--remains on hi dose pred, High flow O2, rev pulm notes. Eye exam 01/2019; and every yr per pt-last March 27 2021.--has appt [facility] 05/31, 06/03/23 History of bilateral cataract surgery in 2013 Foot exam--nml-01/29/2022;01/31 Urine for microalbumin-neg 01/30 , 32 03/26/23-(st losartan 25mg) Meds--atorva, jardiance 10mg, losratan 25mg re-st 03/26/23 , prilosec,mv Metformin-Restart 1 tab 01/18/2023) inc 2 tabs 01/30/2023, inc 3 tabs 03/26/2023, inc 4 tabs 05/15/2023 Prandin prn Mammogram -Neg 03/28/22, 04/01/23- entirely fatty breast, benign calcifications, stable left anteriordepth 3:00 a.m. circumscribed nodule with calcification consistent with degenerated fibroid -is nohelia 04/02/24 History of partial hysterectomy at age of 30 for abnormal bleeding 1 month after childbirth Unsure when her last Pap was, denies any abnormal Paps in the past. Colonoscopy never had it, did a stool for occult blood in the past Cologuard.--neg 02/13/22 DEXA 11/27/21--0/-1.3--low-risk--rpt 5 yrs Since she is on high dose prednisone will rpt dexa now and discussed to consider alendronate for prevention of osteoporosis-defers now On MV now 12/31--VD 33 --is nohelia for 12/02/2304/03--FOBT neg, nml iron levels 07/25/2023---lab stable BMP except sugar 262, A1c 7.8%, normal B12, ALT, lipids - 193/229/64/92, hepC antibody negative, not immune to hepatitis-B FBS 122 Hemoglobin AIC Results: Lab Results Component Value Date/Time HEMOGLOBIN A1C - [facility] 7.8 (H) 07/25/2023 02:25 PM HEMOGLOBIN A1C - [facility] 7.4 (H) 03/22/2023 04:36 PM HEMOGLOBIN A1C - [facility] 7.1 (H) 11/27/2022 05:37 AM Hemoglobin Results: Lab Results Component Value Date/Time HGB 11.7 (L) 05/24/2023 10:03 AM HGB 9.4 (L) 05/11/2023 03:11 AM HGB 9.8 (L) 05/10/2023 05:22 AM HGB 11.6 (L) 05/08/2023 03:48 PM HGB 11.0 (A) 11/13/2022 12:00 AM HGB 11.6 (A) 11/06/2022 12:00 AM HGB 11.6 (A) 11/06/2022 12:00 AM TSH Results: Lab Results Component Value Date/Time TSH - [facility] 2.37 01/29/2022 10:36 AM Lipid Panel Results: Results for orders placed or performed in visit on 09/20/22 LIPID PANEL WITH DIRECT LDL IF TG IS HIGH Result Value Ref Range Triglycerides 109 <=174 mg/dL Cholesterol 149 <200 mg/dL HDL Cholesterol 50 >49 mg/dL Non-HDL Cholesterol 99 <=159 mg/dL LDL Cholesterol 77 <=129 mg/dL Results for orders placed or performed in visit on 07/25/23 HEPATITIS C ANTIBODY Result Value Ref Range Hepatitis C Antibody Negative Negative HEPATITIS B SURFACE ANTIBODY Result Value Ref Range Hepatitis B Surface Antibody, Quantitative <3.5 mIU/mL Hepatitis B Surface Antibody, Qualitative Negative Hepatitis B Surface Antibody, Interpretation NOT immune to Hepatitis B Virus ALT Result Value Ref Range ALT 16 10 - 35 U/L HEMOGLOBIN A1C Result Value Ref Range Hemoglobin A1C 7.8 (H) 4.0 - 5.6 % Estimated Average Glucose 177 (H) <126 mg/dL BASIC METABOLIC PANEL Result Value Ref Range BUN 23 (H) 6 - 20 mg/dL Creatinine 0.8 0.5 - 1.0 mg/dL Estimated Glomerular Filtration Rate 77 >=60 mL/min Sodium 139 135 - 146 mmol/L Potassium 4.3 3.5 - 5.1 mmol/L Chloride 100 98 - 107 mmol/L CO2 25 22 - 32 mmol/L Anion Gap 14 7 - 15 mmol/L Glucose 262 (H) 70 - 120 mg/dL Calcium 10.1 8.4 - 10.2 mg/dL LIPID PANEL WITH DIRECT LDL IF TG IS HIGH Result Value Ref Range Triglycerides 229 (H) <=174 mg/dL Cholesterol 193 <200 mg/dL HDL Cholesterol 64 >49 mg/dL Non-HDL Cholesterol 129 <=159 mg/dL VITAMIN B12 Result Value Ref Range Vitamin B12 579 232 - 1,245 pg/mL MYCODE SST1 Result Value Ref Range MyCode Specimen Freezing of extracted DNA, whole blood and/or serum. MYCODE SST2 Result Value Ref Range MyCode Specimen Freezing of extracted DNA, whole blood and/or serum. LDL CHOLESTEROL (DIRECT MEASURE) Result Value Ref Range LDL Cholesterol (Direct Measure) 92 <=129 mg/dL Patient Active Problem List Diagnosis HTN, goal below 130/80 Type 2 diabetes mellitus with hemoglobin A1c goal of less than 7.0% (HCC) IPF (idiopathic pulmonary fibrosis) (HCC) Encounter for screening mammogram for breast cancer Screening for osteoporosis Menopause Screen for colon cancer Nocturnal hypoxia Chronic respiratory failure with hypoxia, on home oxygen therapy (HCC) Gastroesophageal reflux disease Obesity (BMI 30.0-34.9) Environmental and seasonal allergies Dependence on continuous supplemental oxygen Interstitial lung disease (HCC) Acute on chronic respiratory failure with hypoxia (HCC) Elevated IgE level Right foot drop Pulmonary hypertension (HCC) Asthma, severe persistent Dyspnea on minimal exertion Palliative care encounter Goals of care, counseling/discussion Current Outpatient Medications Medication Sig Dispense Refill Atorvastatin Calcium 10 MG Oral Tablet (Lipitor) TAKE 1 TABLET BY MOUTH EVERY DAY IN THE MORNING 90Tablet 1 Azithromycin 250 MG Oral Tablet (Zithromax Z-Guillermo) Take 1 Tablet by mouth once a day on Saturday, Saturday, and Saturday only for 90 doses. 90 Tablet 0 Breztri Aerosphere 160-9-4.8 MCG/ACT Inhalation Aerosol (Zlyeeam-Tumsonltjgq-Ivlkhkacxt) Inhale 2 Puffs by mouth in the morning and 2 Puffs in the evening. 10.7 g 11 Fasenra 30 MG/ML Subcutaneous Solution Prefilled Syringe Inject 1 mL under the skin Every Month. Every 4 weeks Ipratropium-Albuterol 0.5-2.5 (3) MG/3ML Inhalation Solution Inhale 3 mL via nebulizer every 6 hours as needed. Jardiance 10 MG Oral Tablet (Empagliflozin) TAKE 1 TABLET BY MOUTH EVERY DAY IN THE MORNING 30 Tablet 5 Loratadine 10 MG Oral Tablet (Claritin) Take 1 Tablet by mouth in the morning. (Patient taking differently: Take 1 Tablet by mouth as needed for Rhinitis.) 30 Tablet 11 Losartan Potassium 50 MG Oral Tablet (Cozaar) Take 0.5 Tablets by mouth every evening. Restart 03/26/2023-has at home metFORMIN HCl ER 500 MG Oral Tablet Extended Release 24 Hour (Glucophage XR) Take 2 Tablets by mouth daily with dinner. (Restart 1 tab 01/18/2023) inc 2 tabs 01/30/2023, inc 3 tabs 03/26/2023, inc 4 tabs 05/15/2023 360 Tablet 1 Multi-Vitamins Oral Tablet Take 1 Tablet by mouth in the morning. Omeprazole 20 MG Oral Tablet Delayed Release Take 1 Tablet by mouth in the morning. Still taking. oxygen IN GAS 6 lpm during the day and 4 lpm at bedtime, titrate to 10-15 liters on exertion to keep saturation >90% since hosp DC (Patient taking differently: Use 10 L/min(Oxygen) as directed continuous. 10-12 lpm during the day and 10 lpm at bedtime, titrate to 10-15 liters on exertion to keepsaturation >90% since hosp DC. Pt wears 8 liters at rest sitting at times.) 1 Each 0 Pirfenidone 801 MG Oral Tablet (Esbriet) Take 801 mg by mouth in the morning and 801 mg at noon vxp792 mg before bedtime. one pill three times a day. 270 Tablet 5 predniSONE 20 MG Oral Tablet (Deltasone) TAKE 1 TABLET BY MOUTH EVERY DAY IN THE MORNING 30 Tablet 0 Probiotic Acidophilus Oral Capsule 2 daily Repaglinide 0.5 MG Oral Tablet (Prandin) Take 1 Tablet by mouth in the morning and 1 Tablet at noonand 1 Tablet in the evening. Take before meals. If sugar >140 (using temporarily as holding metformin due to gfr 33 with diuretic use, STOP torsemide and potassium), stat lab 12/28/22. (Patient not taking: Reported on 07/29/2023) 90 Tablet 0 Current Facility-Administered Medications Medication Dose Route Frequency Provider Last Rate Last Admin Albuterol Sulfate (Proventil) (2.5 MG/3ML) 0.083% inhalation solution 2.5 mg 2.5 mg Nebulizer PRN Braden Angeles MD 2.5 mg at 05/14/23 0913 Benralizumab (Fasenra) prefilled syringe 30 mg 30 mg Subcutaneous Q8 Weeks Frank Finch MD 30 mg at 06/13/23 0658 Review of patient's allergies indicates: Allergen Reactions Lisinopril Cough Cannot wean off pred 20mg To get covid booster, Tdap and if covere hep B series at , later shingrix Next appt prevnar 20 Immunization History Administered Date(s) Administered COVID-19 mRNA, LNP-s, No Preserve, 2-Dose Series (Moderna) 03/29/2020, 04/26/2020 COVID-19, LNP-s, No Preserve, Mir-sucrose, Ages 12+ (Pfizer) 01/08/2022 COVID-19, MRNA-LNP, 23-24, PF, 30 MCG/0.3 mL, 12 YRS AND ABOVE, IM (PFIZER- Comirnaty) 01/26/2023 COVID-19, mRNA, LNP-s, PF, Booster, 100mcg/0.5mg (Moderna) 01/16/2021, 07/07/2021 Pneumococcal Conjugate Vacc, 13 Valent (Prevnar) 11/27/2018 Pneumococcal Polysaccharide PPV23 (Pneumovax) 01/04/2020 RSV Vac., Recomb, Adjuvant, PF,0.5 Ml (Arexvy) 01/26/2023 Seasonal Influenza, Quadrivalent Hd (Fluzone Hd) 12/12/2021, 12/24/2022 Varicella Zoster Vaccine (Adult) 03/26/2014 OBJECTIVE: Blood pressure 122/68, pulse 101, temperature 36.9 C (98.5 F), temperature source Tympanic, resp. rate 16, weight 75.1 kg (165 lb 9.6 oz), SpO2 89%. On 6 lts. PHYSICAL EXAM: General: alert, healthy, no distress, well developed Neck: supple, no adenopathy, thyroid Not enlarged without nodularity Heart: regular rhythm and rate,No murmurs. Lungs: lungs clear to auscultation ex basal lower 1/3 lung rales Extremities: no edema Rt Foot drop--resolved Strength 4+5/ hip flexors Abdomen: Soft, non-tender, normal bowel sounds, no masses or organomegaly ASSESSMENT/PLAN: Type 2 diabetes mellitus with hemoglobin A1c goal of less than 7.0% ([facility]) (Primary) - ALBUMIN / CREATININE RATIO, URINE; Future; Expected date: 10/29/2023 - HEMOGLOBIN A1C, POINT OF CARE; Future; Expected date: 10/29/2023 - ALT; Future; Expected date: 01/29/2024 - BASIC METABOLIC PANEL; Future; Expected date: 01/29/2024 - LIPID PANEL WITH DIRECT LDL IF TG IS HIGH; Future; Expected date: 01/29/2024 - HEMOGLOBIN A1C; Future; Expected date: 01/29/2024 - CBC WITH WBC DIFFERENTIAL; Future; Expected date: 01/29/2024 - Losartan Potassium 25 MG Oral Tablet (Cozaar); Take 1 Tablet by mouth every evening. Restart 03/26/2023 HTN, goal below 130/80 - BASIC METABOLIC PANEL; Future; Expected date: 01/29/2024 - Losartan Potassium 25 MG Oral Tablet (Cozaar); Take 1 Tablet by mouth every evening. Restart 03/26/2023 Dyslipidemia, goal LDL below 100 - ALT; Future; Expected date: 01/29/2024 - LIPID PANEL WITH DIRECT LDL IF TG IS HIGH; Future; Expected date: 01/29/2024 IPF (idiopathic pulmonary fibrosis) (HCC) - CBC WITH WBC DIFFERENTIAL; Future; Expected date: 01/29/2024 Acute on chronic respiratory failure with hypoxia (HCC) - BASIC METABOLIC PANEL; Future; Expected date: 01/29/2024 - CBC WITH WBC DIFFERENTIAL; Future; Expected date: 01/29/2024 Dependence on continuous supplemental oxygen correction (current) use of systemic steroids - 25-HYDROXY VITAMIN D; Future; Expected date: 01/29/2024 Elevated IgE level Encounter for screening mammogram for breast cancer Screening for osteoporosis Gastroesophageal reflux disease without esophagitis Need for hepatitis B vaccination Nutritional anemia, unspecified - CBC WITH WBC DIFFERENTIAL; Future; Expected date: 01/29/2024 40 min total time spent with patient, time spent reviewing subspecialty notes, diagnostic studies done, follow-up orders/medication refills,over 1/2 time spent in counseling, coordinating care. Follow Up: Return in about 3 months (around 10/29/2023), or if symptoms worsen or fail to improve, for Return with Physician. | For: Return with Physician (This note was completed using the dictation program Fluency Direct. As such, there may be misspellings, word substitutions, or other variations that should not change the essence of the clinical content of this encounter note. If there is need for further clarification, please direct questions to the provider listed above.) Patient and / caregiver verbalizes understanding of above instructions and agrees with plan of care. Rizwana Antunez MD 07/29/2023 documented in this encounter Nursing Notes * Joel Kaur MED RENETTA - 07/29/2023 3:25 PM EDT The patient has been properly identified by confirmation of name and date of . Chief Complaint Patient presents with Return Visit documented in this encounter Plan of Treatment Upcoming Encounters Date Type Department Care Team (Late st Contact Info) Description 08/28/2023 2:00 PM EDT Therapy Psychology [facility] [address] [place] [address] Daisy Servin, [facility] [address] [place] [address] 09/09/2023 10:00 AM EDT Telemedicine Palliative Medicine, [facility] [address] [facility] 5th [place] [address] Amarilys Ramirez MD [address] [place] [address] 09/26/2023 1:00 PM EDT Nurse Only Pulmonary Medicine, [facility] [address] [facility] [place] [address] Gw, Nurse Pulmonary [address] [place] [address] [place] [address] 10/28/2023 1:40 PM EDT Office Visit Pulmonary Medicine, [facility] [address] [place] [address] Frank Finch MD [address] [facility] [address] 11/04/2023 3:00 PM EDT Office Visit General Internal Medicine [address] [place] [address] [place] [address] Rizwana Antunez MD [address] [facility] [place] [address] 12/02/2023 11:00 AM EDT Imaging Radiology, [place] [id number] [facility] [place] [address] 02/26/2024 1:30 PM EST Office Visit Cardiology, [facility] [address] [place] [address] Ni Kay PA-C [address] [place] [address] [place] [address] 04/02/2024 1:00 PM EST Imaging Radiology [facility] [address] [facility] [address] [place] [address] Scheduled Orders Name Type Priority Associated Diagnoses Order Schedule ALBUMIN / CREATININE RATIO, URINE Lab Routine Type 2 diabetes mellitus with hemoglobin A1c goal of less than 7.0% (HCC) Expected: 10/29/2023 (Approximate), Expires: 07/28/2024 HEMOGLOBIN A1C, POINT OF CARE Point of Care Testing - Unsolicited Results Routine Type 2 diabetes mellitus with hemoglobin A1c goal of less than 7.0% (HCC) Expected: 10/29/2023, Expires: 08/28/2024 ALT Lab Routine Type 2 diabetes mellitus with hemoglobin A1c goal of less than 7.0% (HCC) Dyslipidemia, goal LDL below 100 Expected: 01/29/2024 (Approximate), Expires: 07/28/2024 BASIC METABOLIC PANEL Lab Routine Type 2 diabetes mellitus with hemoglobin A1c goal of less than 7.0% (HCC) HTN, goal below 130/80 Acute on chronic respiratory failure with hypoxia (HCC) Expected: 01/29/2024 (Approximate), Expires: 07/28/2024 LIPID PANEL WITH DIRECT LDL IF TG IS HIGH Lab Routine Type 2 diabetes mellitus with hemoglobin A1c goal of less than 7.0% (HCC) Dyslipidemia, goal LDL below 100 Expected: 01/29/2024 (Approximate), Expires: 07/28/2024 HEMOGLOBIN A1C Lab Routine Type 2 diabetes mellitus with hemoglobin A1c goal of less than 7.0% (HCC) Expected: 01/29/2024 (Approximate), Expires: 07/28/2024 CBC WITH WBC DIFFERENTIAL Lab Routine Type 2 diabetes mellitus with hemoglobin A1c goal of less than 7.0% (HCC) IPF (idiopathic pulmonary fibrosis) (HCC) Acute on chronic respiratory failure with hypoxia (HCC) Nutritional anemia, unspecified Expected: 01/29/2024 (Approximate), Expires: 07/28/2024 25-HYDROXY VITAMIN D Lab Routine 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 Expected: 01/29/2024 (Approximate), Expires: 07/28/2024 Health Maintenance Due Date Last Done Comments Zoster Vaccines (1 of 2) 05/21/2014 03/26/2014 COVID-19 Vaccine (2 4 season) 2023 01/26/2023, 01/08/2022, 07/07/2021, Additional history exists Depression, Most Recent Scor e >= 10 [...] as of this encounter Visit Diagnoses Diagnosis Type 2 diabetes mellitus with hemoglobin A1c goal of less than 7.0% (HCC)- Primary HTN, goal below 130/80 Unspecified essential hypertension Dyslipidemia, goal LDL below 100 Other and unspecified hyperlipidemia IPF (idiopathic pulmonary fibrosis) (HCC) Idiopathic pulmonary fibrosis Acute on chronic respiratory failure with hypoxia (HCC) Dependence on continuous supplemental oxygen 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 Yes Cardiac Drugs? Yes Care Teams Executive Pilot Relationship Specialty Start Date End Date Rizwana Antunez MD [address] [place] [id number] PCP - General Internal Medicine 03/28/22 documented as of this encounter"
--- OUTSIDE RECORDS SUMMARY | 2023-09-27 14:24 | External Medical Summary | Summary of Care ---
Author Name Unknown Organization [facility] Address [address] [place] [facility] [place] [address] Phone [phone] Care Team Providers Care Supervisor Sewer Maintenance Name Role Phone Rizwana Antunez MD Primary Care Provider [phone] Reason for Visit * Reason Comments Psychotherapy Encounter Details Date Type Department Care Team (Late st Contact Info) Description 08/07/2023 2:00 PM EDT Therapy Psychology [facility] [address] [place] [address] Daisy Servin, [facility] [address] [place] [address] Adjustment disorder with mixed anxiety and depressed mood* Allergies Active Allergy Reactions Criticality Noted Date Comments Lisinopril Cough 05/04/2022 documented as of this encounter (statuses as of 08/07/2023) Medications Medication Sig Dispensed Refills Start Date [...] the skin Every Month. Every 4 weeks 12/04/2022 Active Multi-Vitamins Oral Tablet Take 1 Tablet by mouth in the morning. Active Repaglinide 0.5 MG Oral Tablet (Prandin)Indications :Type 2 diabetes mellitus with hemoglobin A1c goal of less than 7.0% ([facility]),Elevated BUN,Dehydration Take 1 Tablet by mouth in the morning and 1 Tablet at noon and 1 Tablet in the evening. Take before meals. If sugar >140 (using temporarily as holding metformin due to gfr 33 with diuretic use, STOP torsemide and potassium), stat lab 12/28/22. 90 Tablet 12/24/2022 Active Additional Information Patient not taking.Reported on 07/29/2023 oxygen IN GAS 6 lpm during the [...] rest sitting at times., Reported on 05/14/2023 RadhaerikTripvistophere 160-9-4.8 MCG/ACT Inhalation Aerosol (Budeson-Glycopyrrol -Formoterol) Inhale [...] failure with hypoxia, on home oxygen therapy ([facility]),IPF (idiopathic pulmonary fibrosis) ([facility]),Type 2 diabetes mellitus with hemoglobin A1c goal of less than 7.0% ([facility]),MCC (current) use of systemic steroids Take 2 [...] hemoglobin A1c goal of less than 7.0% ([facility]),Dyslipidemia, goal LDL below 100 TAKE 1 TABLET BY MOUTH EVERY DAY IN THE MORNING 90 Tablet 1 06/12/2023 Active Jardiance 10 MG Oral Tablet (Empagliflozin)Indic ations:Type 2 diabetes mellitus with hemoglobin A1c goal of less than 7.0% ([facility]),Chronic respiratory failure with hypoxia, on home oxygen therapy ([facility]),IPF (idiopathic pulmonary fibrosis) ([facility]),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 Restart 03/26/2023 90 Tablet 1 07/29/2023 Active Ipratropium-Albutero l 0.5-2.5 (3) MG/3ML Inhalation Solution (Duoneb) Inhale 3 mL via nebulizer every 6 hours as needed for Dyspnea or Wheezing. 360 mL 2 08/06/2023 4 Active Hospital, Clinic, or Other Facility Administered Medication Ordered Dose Route Frequency Start Date End Date Status Albuterol Sulfate (Proventil) (2.5 MG/3ML) 0.083% inhalation solution 2.5 mgIndications:IPF (idiopathic pulmonary fibrosis) ([facility]) 2.5 mg NEBULIZER PRN 12/05/2022 12/05/2023 Active Benralizumab (Fasenra) prefilled syringe 30 mgIndications:Severe persistent asthma, unspecified whether complicated 30 mg SC [id number] 06/13/2023 12/24/2024 Active documented as of this encounter (statuses as of 08/07/2023) Active Problems Problem Noted Date Diagnosed Date Dyslipidemia, goal LDL below 100 07/29/2023 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 Palliative care [...] as of this encounter (statuses as of 08/07/2023) Resolved Problems Problem Noted Date Diagnosed Date Resolved Date Acute pulmonary edema 11/30/20222022 Bacteremia due to Staphylococcus epidermidis 3 12/10/2022 Multifocal pneumonia 11/26/2022 023 Severe persistent asthma with exacerbation 07/31/2022 12/10/2022 Severe obesity with body mas s index (BMI) of 35.0 to 39.9 with serious comorbidity 11/20/2021 documented as of this encounter (statuses as of 08/07/2023) Immunizations Name Administration Dates Next Due COVID-19 [...] Progress Notes * Daisy Servin, CHATA - 08/07/2023 2:01 PM EDT PRIMARY CARE BEHAVIORAL HEALTH FOLLOW-UP 08/07/2023 Length of visit: 50 minutes (2:05 pm - 2:58 pm) Type of Visit: individual Treatment session number: 1 AGENDA & ACTION PLAN: -Check in-Nicolasa provided update on impact of health condition on her physical abilities and identified resulting limitations. -Today therapist utilized open ended, closed ended questions, reflective listening, validation of feelings to promote expression of feelings and thoughts and observations. Nicolasa verbalized and described what it has been like for her to adjust and deal with the physical limitations, family's responses and her own perspective of her functionating. Therapist utilized a values perspective to encourage Nicolasa to consider what is important to her at this time in her life. Therapist also utilized a strength perspective encouraging Nicolasa to consider what strengths she has utilized in her lifetime to deal with difficult times and could they be applicable at this time. -Therapist introduced the CBT concept of the connection to how we think about things impacts how wefeel and how we act. We discussed applying this to her view of herself with her health condition and her label of invalid. Are there other ways to consider thinking about herself in this situation, other ways to consider what it means to be an invalid. -Homework-Nicolasa will keep a thought record. Optional: Interventions addressed in treatment thus far: Treatment/Intervention Visit 08/07/2023 1 2 3 4 5 6 Behavioral activation Behavior modification for poor health behaviors (e.g., smoking cessation) Breathing re-training mindfulness training Cognitive restructuring/diffusion x Exercise/physical activity Problem-solving Psychoeducation x Exposure and/or response prevention Supportive therapy x Sleep hygiene Stimulus control Time in bed restriction Conduct WHO (CM,JOVAN,MTM) MENTAL STATUS EXAMINATION: No changes to mental status since last visit. No change in suicide or homicide risk status since last visit. Level of suicide completion risk:Low Risk (wish to or ideation without method, intent, plan, orbehavior; modifiable risk factors and strong protective factors; or no reported history of ideationor behavior): Pt has agreed to return for further psychotherapy. Adjustment disorder with mixed anxious and depressed mood. RETURN 2 WEEKS for individual cognitive behavioral therapy. Daisy Servin LCSW Primary Care Behavioral Health Psychology [facility] [address] [facility] [place] [address] documented in this encounter Plan of Treatment Upcoming Encounters Date Type Department Care Team (Late st Contact Info) Description 08/08/2023 11:00 AM EDT Telemedicine Palliative Medicine, [facility] [address] [facility] 5th [place] [address] Radha Almazan PA-C [address] [place] [address] 08/14/2023 1:30 PM EDT Office Visit Cardiology, [facility] [address] [facility] [place] [address] Ni Kay PA-C [address] [place] [address] 08/28/2023 2:00 PM EDT Therapy Psychology [facility] [address] [facility] [place] [address] Daisy Servin LCSW [address] [place] [address] 09/26/2023 1:00 PM EDT Nurse Only Pulmonary Medicine, [facility] [address] [facility] [place] [address] Gw, Nurse Pulmonary [address] [place] [address] 10/28/2023 1:40 PM EDT Office Visit Pulmonary Medicine, [facility] [address] [facility] [place] [address] Frank Finch MD [address] [facility] [place] [address] 12/02/2023 11:00 AM EDT Imaging Radiology, [place] [address] [place] [address] 04/02/2024 1:00 PM EST Imaging Radiology [facility] [facility] [address] [facility] [place] [address] Health Maintenance Due Date Last Done Comments Zoster Vaccines (1 of 2) 05/21/2014 03/26/2014 COVID-19 Vaccine (2022-2 4 season) 2023 01/26/2023, 01/08/2022, 07/07/2021, Additional history exists Depression, Most Recent Scor e >= 10 (will fire each visit until score < 10) 07/20/2023 07/19/2023 Diabetic Eye Exam Discontinued 01/16/2019 Cologuard Discontinued 02/16/2022, 1208/2021, 02/13/2022 Influenza Vaccine (FLU shot) Completed 12/24/2022, [...] Documents on File Type Date Recorded Patient Pharmaceutical Service Representative Expl anation POLST 05/24/2023 9:25 AM POLST [...] Yes Cardiac Drugs? Yes Care Teams Supervisor Sewer Maintenance Relationship Specialty Start Date End Date Rizwana Antunez MD [address] [place] [address] PCP - General Internal Medicine 03/28/22 documented as of this encounter
--- OUTSIDE RECORDS SUMMARY | 2023-09-27 14:24 | External Medical Summary ---
Author Name Unknown Address Unknown Organization [facility] [address] [place] [address] Laboratory Report Ordering Provider Test Date Status GILBERTO DELCID 07/25/2023 14:25:08 Final Observation Date Value Abnormality Reference (Units ) Status BUN 07/25/2023 14:25:08 23 Above high normal 6-20 (mg/dL) Final Creatinine 07/25/2023 14:25:08 0.8 0.5-1.0 (mg/dL) Final Glomerular filtration rate/1.73 sq M.predicted [Volume Rate/Area] in Serum, Plasma or Blood by Creatinine-based formula (CKD-EPI) 07/25/2023 14:25:08 77 >=60 (mL/min) Final eGFR is calculated based on the CKD-EPI 2020 equation Sodium 07/25/2023 14:25:08 139 135-146 (m mol/L) Final Potassium 07/25/2023 14:25:08 4.3 3.5-5.1 (m mol/L) Final Cl 07/25/2023 14:25:08 100 98-107 (mm ol/L) Final CO2 07/25/2023 14:25:08 25 22-32 (mmo l/L) Final Anion gap 07/25/2023 14:25:08 14 7-15 (mmol /L) Final Glucose 07/25/2023 14:25:08 262 Above high normal 70 -120 (mg/dL) Final Calcium 07/25/2023 14:25:08 10.1 8.4-10.2 ( mg/dL) Final [facility] Location [facility] [address] [place] [address]
--- OUTSIDE RECORDS SUMMARY | 2023-09-27 14:24 | External Medical Summary | Summary of Care ---
Author Name Unknown Organization [facility] Address [address] [facility] [place] [address] Phone [phone] Care Team Providers Care Party Plan Sales Agent Name Role Phone Rizwana Antunez MD Primary Care Provider [phone] Reason for Visit * Reason Comments Follow Up Encounter Details Date Type Department Care Team (Late st Contact Info) Description 08/01/2023 1:45 PM EDT Nurse Only Pulmonary Medicine, [facility] [address] [facility] [place] [address] Gw, Nurse Pulmonary [address] [facility] [place] [address] Follow Up Allergies Active Allergy Reactions Criticality Noted Date Comments Lisinopril Cough 05/04/2022 documented as of this encounter (statuses as of 08/01/2023) Medications Medication Sig Dispensed Refills Start Date End Date Status Ipratropium-Albutero l 0.5-2.5 (3) MG/3ML Inhalation Solution Inhale 3 mL via nebulizer every 6 hours as needed. 11/05/2022 Active Probiotic Acidophilus Oral CapsuleIndications:H ospital [...] hemoglobin A1c goal of less than 7.0% ([facility]),Elevated BUN,Dehydration Take 1 Tablet by [...] the evening. 10.7 g 11 01/16/2023 Active Pirfenidone 801 MG Oral Tablet (Esbriet)Indications :Chronic idiopathic pulmonary fibrosis (HCC),Chronic respiratory failure with hypoxia, on home oxygen therapy (HCC) Take 801 mg by mouth in the morning and 801 mg at noon and 801 mg before bedtime. one pill three times a day. 270 Tablet 5 05/07/2023 Active Omeprazole 20 MG Oral Tablet Delayed ReleaseIndications:G astroesophageal reflux disease without esophagitis Take 1 Tablet by mouth in the morning. Still taking. 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 (Restart 1 tab 01/18/2023) inc 2 tabs 01/30/2023, inc 3 tabs 03/26/2023, inc 4 tabs 05/15/2023 360 Tablet 1 05/15/2023 Active Azithromycin 250 MG Oral Tablet (Zithromax Z-Guillermo) Take 1 Tablet by mouth once a day on Saturday, Saturday, and Saturday only for 90 doses. 90 Tablet 05/24/2023 Active Atorvastatin Calcium 10 MG Oral Tablet (Lipitor)Indications :Type 2 diabetes mellitus with hemoglobin A1c goal of less than 7.0% ([facility]),Dyslipidemia, goal LDL below 100 TAKE 1 TABLET BY MOUTH EVERY DAY IN THE MORNING 90 Tablet 1 06/12/2023 Active Jardiance 10 MG Oral Tablet (Empagliflozin)Indic ations:Type 2 diabetes mellitus with hemoglobin A1c goal of less than 7.0% ([facility]),Chronic respiratory failure with hypoxia, on home oxygen therapy ([facility]),IPF (idiopathic pulmonary fibrosis) ([facility]),half-way (current) use of systemic steroids TAKE 1 TABLET BY MOUTH EVERY DAY IN THE MORNING 30 Tablet 5 07/13/2023 Active predniSONE 20 MG Oral Tablet (Deltasone) TAKE 1 TABLET BY MOUTH EVERY DAY IN THE MORNING 30 Tablet 07/23/2023 Active Losartan Potassium 25 MG Oral Tablet (Cozaar)Indications: Type 2 diabetes mellitus with hemoglobin A1c goal of less than 7.0% ([facility]),HTN, goal below 130/80 Take 1 Tablet by mouth every evening. Restart 03/26/2023 90 Tablet 1 07/29/2023 Active Hospital, Clinic, or Other Facility Administered Medication Ordered Dose Route Frequency Start Date End Date Status Albuterol Sulfate (Proventil) (2.5 MG/3ML) 0.083% inhalation solution 2.5 mgIndications:IPF (idiopathic pulmonary fibrosis) ([facility]) 2.5 mg NEBULIZER PRN 12/05/2022 12/05/2023 Active Benralizumab (Fasenra) prefilled syringe 30 mgIndications:Severe persistent asthma, unspecified whether complicated 30 mg SC [id number] 06/13/2023 12/24/2024 Active documented as of this encounter (statuses as of 08/01/2023) Active Problems Problem Noted Date Diagnosed Date [...] as of this encounter (statuses as of 08/01/2023) Resolved Problems Problem Noted Date Diagnosed Date Resolved Date Acute pulmonary edema 11/30/20222022 Bacteremia due to Staphylococcus epidermidis 3 12/10/2022 Multifocal pneumonia 11/26/2022 023 Severe persistent asthma with exacerbation 07/31/2022 12/10/2022 Severe obesity with body mas s index (BMI) of 35.0 to 39.9 with serious comorbidity 11/20/2021 08 / documented as of this encounter (statuses as of 08/01/2023) Immunizations Name Administration Dates Next Due COVID-19 [...] Sign Reading Time Taken Comments Blood Pressure - - Pulse 99 08/01/2023 2:04 PM EDT Temperature 35.2 C (95.4 F) 08/01/2023 2:04 PM ED T Respiratory Rate 16 08/01/2023 2:04 PM EDT Oxygen Saturation 90% 08/01/2023 2:04 PM EDT Inhaled Oxygen Concentration - - Weight - - Height - - Body Mass Index - - documented in this encounter Functional Status Functional [...] Description 08/07/2023 2:00 PM EDT Therapy Psychology [facility] [address] [place] [address] Daisy Servin, [employer] [address] [place] [address] 08/08/2023 11:00 AM EDT Telemedicine Palliative Medicine, [facility] [address] [facility] 5th Floor [place] [address] Radha [facility]zan [facility]C [address] [facility] [address] 08/14/2023 1:30 PM EDT Office Visit Cardiology, [facility] [address] [place] [address] Ni Kay PA-C [address] [place] [address] 09/26/2023 1:00 PM EDT Nurse Only Pulmonary Medicine, [facility] [address] [facility] [place] [address] Gw, Nurse Pulmonary [address] [place] [address] [place] [address] 10/28/2023 1:40 PM EDT Office Visit Pulmonary Medicine, [facility] [address] [facility] [place] [address] Frank Finch MD [address] [place] [address] 12/02/2023 11:00 AM EDT Imaging Radiology, [facility] [address] [facility] [address] 04/02/2024 1:00 PM EST [facility] [address] [facility] [place] [address] Health Maintenance Due Date Last Done Comments [...] Not on filedocumented as of this encounter Administered Medications Active Administered Medications - up to 3 most recent administrations Medication Order MAR Action Action Date Dose Rate Site Benralizumab (Fasenra) prefilled syringe 30 mg 30 mg, Subcutaneous, [id number], First dose on Camila 06/13/23 at 1630, Last dose on Camila 10/29/24 at 1630, For 10 doses Given 08/01/2023 2:07 PM EDT 30 mg Arm L eft Upper Given 06/13/2023 6:58 AM EDT 30 mg Ar m Right Upper documented in this encounter Advance Directives Documents on File Type Date Recorded Patient 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 Yes Cardiac Drugs? Yes Care Teams Party Plan Sales Agent Relationship Specialty Start Date End Date Rizwana Antunez MD [address] [place] [address] PCP - General Internal Medicine 03/28/22 documented as of this encounter
--- OUTSIDE RECORDS SUMMARY | 2023-09-27 14:24 | External Medical Summary | Summary of Care ---
Author Name Unknown Organization [facility] Address [address] [place] [address] Phone [phone] Care Team Providers Care Esl Instructional Assistant Name Role Phone Rizwana Antunez MD Primary Care Provider [phone] Reason for Visit * Reason Onset Date Comments Palliative Care Follow-up 08/08/2023 Encounter Details Date Type Department Care Team (Late st Contact Info) Description 08/08/2023 Telephone Palliative Medicine, [facility] [address] [facility] 5th [address] [place], [place] [id number] Radha Almazan, PARoxanne [address] [place], [place] [id number] Palliative Care Follow-up Allergies Active Allergy Reactions Criticality Noted Date Comments Lisinopril Cough 05/04/2022 documented as of this encounter (statuses as of 08/08/2023) Medications Medication Sig Dispensed Refills Start Date [...] hemoglobin A1c goal of less than 7.0% ([facility]),Elevated BUN,Dehydration Take 1 Tablet by mouth [...] rest sitting at times., Reported on 05/14/2023 [employer]haerik[employer]ob[employer] 160-9-4.8 MCG/ACT Inhalation Aerosol (Budeson-Glycopyrrol -Formoterol) Inhale [...] failure with hypoxia, on home oxygen therapy ([facility]),IPF (idiopathic pulmonary fibrosis) ([facility]),Type 2 diabetes mellitus with hemoglobin A1c goal of less than 7.0% ([facility]),correction (current) use of systemic steroids Take 2 [...] hemoglobin A1c goal of less than 7.0% ([facility]),Dyslipidemia, goal LDL below 100 TAKE 1 TABLET BY MOUTH EVERY DAY IN THE MORNING 90 Tablet 1 06/12/2023 Active Jardiance 10 MG Oral Tablet (Empagliflozin)Indic ations:Type 2 diabetes mellitus with hemoglobin A1c goal of less than 7.0% ([facility]),Chronic respiratory failure with hypoxia, on home oxygen therapy ([facility]),IPF (idiopathic pulmonary fibrosis) (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),HTN, goal below 130/80 Take 1 Tablet [...] inhalation solution 2.5 mgIndications:IPF (idiopathic pulmonary fibrosis) ([facility]) 2.5 mg NEBULIZER PRN 12/05/2022 12/05/2023 Active Benralizumab (Fasenra) prefilled syringe 30 mgIndications:Severe persistent asthma, unspecified whether complicated 30 mg SC [id number] 06/13/2023 12/24/2024 Active documented as of this encounter (statuses as of 08/08/2023) Active Problems Problem Noted Date Diagnosed Date Dyslipidemia, goal LDL below 100 07/29/2023 correction (current) use of systemic steroids Palliative care [...] as of this encounter (statuses as of 08/08/2023) Resolved Problems Problem Noted Date Diagnosed Date Resolved Date Acute pulmonary edema 11/30/20222022 Bacteremia due to Staphylococcus epidermidis 3 12/10/2022 Multifocal pneumonia 11/26/2022 023 Severe persistent asthma with exacerbation 07/31/2022 12/10/2022 Severe obesity with body mas s index (BMI) of 35.0 to 39.9 with serious comorbidity 11/20/2021 documented as of this encounter (statuses as of 08/08/2023) Immunizations Name Administration Dates Next Due COVID-19 [...] Telephone Encounter - Shahida Jimenez LPN - 08/08/2023 11:32 AM EDT DME order for bedside commode faxed to [facility] in [place] at [phone] documented in this encounter Plan of Treatment Upcoming Encounters Date Type Department Care Team (Late st Contact Info) Description 08/14/2023 1:30 PM EDT Office Visit Cardiology, [facility] [address] [place] [address] Ni Kay [facility]C [address] [facility] [address] 08/28/2023 2:00 PM EDT Therapy Psychology [facility] [address] [facility] [place] [address] Daisy Servin, [facility] [address] [facility] [place] [address] 09/09/2023 10:00 AM EDT Telemedicine Palliative Medicine, [facility] [address] [facility] [address] [place] [address] Amarilys Ramirez MD [address] [place] [address] 09/26/2023 1:00 PM EDT Nurse Only Pulmonary Medicine, [facility] [address] [facility] [place] [address] Gw, Nurse Pulmonary [address] [facility] [place] [address] 10/28/2023 1:40 PM EDT Office Visit Pulmonary Medicine, [facility] [address] [facility] [place] [address] Frank Finch MD [address] [place] [address] 12/02/2023 11:00 AM EDT Imaging Radiology, [facility] [address] [facility] [address] 04/02/2024 1:00 PM EST [facility] [address] [facility] [place] [address] Health Maintenance Due Date Last Done Comments [...] Documents on File Type Date Recorded 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 Yes Cardiac Drugs? Yes Care Teams Esl Instructional Assistant Relationship Specialty Start Date End Date Rizwana Antunez MD [address] [place] [id number] PCP - General Internal Medicine 03/28/22 documented as of this encounter
--- OUTSIDE RECORDS SUMMARY | 2023-09-27 14:24 | External Medical Summary | Summary of Care ---
Author Name Unknown Organization [facility] Address [address] [facility] [place] [address] Phone [phone] Care Team Providers Care Media Monitor Name Role Phone iRzwana Antunez MD Primary Care Provider [phone] Reason for Visit * Reason Comments Follow Up Here return 2 mo. Encounter Details Date Type Department Care Team (Late st Contact Info) Description 07/25/2023 1:20 PM EDT Office Visit Pulmonary Medicine, [facility] [address] [facility] [place] [address] Frank Finch MD [address] [facility] [address] IPF (idiopathic pulmonary fibrosis) (HCC)*; Interstitial lung disease (HCC); Acute on chronic respiratory failure with hypoxia (HCC); Nocturnal hypoxia; Dependence on continuous supplemental oxygen; Chronic respiratory failure with hypoxia, on home oxygen therapy (HCC) Allergies Active Allergy Reactions Criticality Noted [...] goal of less than 7.0% ([facility]),Elevated BUN,Dehydration Take 1 Tablet by [...] hypoxia, on home oxygen therapy ([facility]) Take 801 mg by mouth [...] hypoxia, on home oxygen therapy ([facility]),IPF (idiopathic pulmonary fibrosis) ([facility]),Type 2 diabetes mellitus with hemoglobin A1c goal of less than 7.0% ([facility]),meterman (current) use of systemic steroids Take 2 [...] goal of less than 7.0% ([facility]),Dyslipidemia, goal LDL below 100 TAKE 1 TABLET BY MOUTH EVERY DAY IN THE MORNING 90 Tablet 1 06/12/2023 Active Jardiance 10 MG Oral Tablet (Empagliflozin)Indic ations:Type 2 diabetes mellitus with hemoglobin A1c goal of less than 7.0% ([facility]),Chronic respiratory failure with hypoxia, on home oxygen therapy ([facility]),IPF (idiopathic pulmonary fibrosis) ([facility]),intermediate (current) use of systemic steroids TAKE 1 [...] asthma, unspecified whether complicated 30 mg SC [id number] 06/13/2023 12/24/2024 Active documented as of this [...] Sign Reading Time Taken Comments Blood Pressure 140/84 07/25/2023 1:23 PM EDT Pulse 84 07/25/2023 1:23 PM EDT Temperature 35.9 C (96.7 F) 07/25/2023 1:23 PM ED T Respiratory Rate 16 07/25/2023 1:23 PM EDT Oxygen Saturation 91% 07/25/2023 1:23 PM EDT o2-10 L-rest Inhaled Oxygen Concentration - - Weight 74.8 kg (165 lb) 07/25/2023 1:23 PM EDT Height 157.5 cm (5' 2") 07/25/2023 1:23 PM EDT Body Mass Index 30.18 07/25/2023 1:23 PM EDT documented in this [...] as of this encounter Progress Notes * Frank Finch MD - 07/25/2023 2:03 PM EDT 07/25/2023 Pulmonary Medicine, [facility] [address] [facility] [place] [address] [id number] Nicolasa Gomez 1950 female 73 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 Since last evaluation, patient describes overall stable respiratory status, compliant with home oxygen therapy, aspirate, Fasenra, maintenance prednisone therapy at 20 mg daily, along with azithromycin Saturday and Saturday schedule.. Limited exercise tolerance. Denies interval hospitalizations or emergency room visits. Denies nocturnal awakening due to respiratory symptoms. Patient had been evaluated by [facility] transplant evaluation team, declined due to frail body habitus and multiple comorbidities related high risk status. Patient's care plan was also reviewed at Pulmonary case review board meeting. Current management plan was reviewed and recommendations including continuation of optimized prednisone therapy along with symptom relief therapy for persistent dyspnea was discussed. Use of high-flow ambulatory oxygen therapy devices was also recommended. Consensus recommendations to avoid invasive tissue diagnostic workup were also noted. These recommendations were communicated with the patient during today's evaluation. Current bronchodilator regimen includes Breztri twice daily. Physical examination significant for basilar coarse rales most prominent at right base, no evidenceof volume overload, regular cardiac rhythm and nonlateralizing Neuro examination. XR Chest Exam date and time: 05/08/2023 3:21 PM Age: 73 years old Clinical indication: Shortness of breath; Additional info: Chest pain TECHNIQUE: Imaging protocol: Radiologic exam of the chest. Views: 2 views. COMPARISON: 1. CT PULMONARY EMBOLUS W CONTRAST 11/26/2022 6:43 PM 2. DX XR CHEST 1 VIEW 12/03/2022 2:05 PM FINDINGS: Lungs: Bilateral diffuse mainly peripheral interstitial thickening/fibrotic changes. No segmental infiltrate. Bilateral bronchiectatic changes are noted. Pleural spaces: Unremarkable. No pleural effusion. No pneumothorax. Heart/Mediastinum: Normal heart size. Right paratracheal mediastinal widening appears similar to prior. Bones/joints: No acute osseous abnormality. IMPRESSION IMPRESSION: Chronic interstitial lung disease with mainly peripheral interstitial thickening/fibrotic changes and diffuse bronchiectasis appears slightly more extensive than prior. A component of interstitial pneumonia can not be excluded. CTA Chest With Contrast Exam date and time: 05/08/2023 4:22 PM Age: 73 years old Clinical indication: Other: Pulmonary embolism; Wells score < 2; D-dimer not done; Not ; Perc positive (score >= 1); Additional info: Pulmonary embolism; Wells score < 2; D-dimer not done; Not ; Perc positive (score >= 1) FINDINGS: Pulmonary arteries: No filling defects suspicious for pulmonary emboli are seen in the central pulmonary arteries. Mid/distal segmental and smaller pulmonary artery branches are not seen well enough for comment. Great vessels off aortic arch: Aberrant right subclavian artery passes posterior to the trachea and esophagus with marked calcified plaque at vessel origin. Aorta: Moderate atheromatous plaque in the thoracic aorta. Lungs: Re-demonstration extensive bilateral upper and lower lobe mainly peripheral interstitial thickening/fibrotic changes with scattered areas of subpleural honeycombing and diffuse bronchiectasis. Scattered areas of hazy ground-glass attenuation also similar to prior. Pleural spaces: Mild pleural thickening in the posterior barbara thoraces. No significant pleural effusion. No pneumothorax. Heart: Normal cardiac size and contour. No significant pericardial effusion. Lymph nodes: A few enlarged mediastinal nodes measuring up to 1.9 cm, right upper paratracheal zone and 1.8 cm right lower paratracheal zone, stable from prior consistent with reactive nodes. Bones/joints: Unremarkable bony thorax. No evidence of fracture or other significant osseous abnormality. Soft tissues: Soft tissues are unremarkable as visualized. Other findings: Limited sections through the upper abdomen are unremarkable. IMPRESSION IMPRESSION: 1. No evidence of central pulmonary embolism. Smaller peripheral pulmonary artery branches are not opacified well enough for comment. 2. Chronic interstitial lung disease/interstitial fibrosis with scattered areas of subpleural honeycombing and diffuse bronchiectasis, similar to prior. Mild reactive mediastinal lymphadenopathy, stable. 3. Moderate plaque in the aorta. Aberrant right subclavian artery. CT scan chest from [facility] 2023 shows bilateral subpleural scarring with trace honeycombing along withscattered areas of parenchymal congestion without any effusions or lymphadenopathy. Chest x-ray from November [address] scan from [place] report was reviewed. Bilateral prominent reticular infiltrates consistent with pulmonary fibrosis, most prominent at left lung base. Spirometry revealed evidence of apparent restriction ( low FVC, increased obstructive index). there was no significant change in spirometry measured following bronchodilator administration. Diffusion capacity that was corrected for hemoglobin concentration was severely reduced. When compared with testing that was last performed on September 20, 2022, there has been no significant change in spirometry or diffusion capacity. Prior measurements of total lung capacity have verify the presence of restriction.This interpretation has been electronically signed: KATHLEEN SMITH MD 05/23/2023 07:12:32 PM Review of historical diagnostic workup data: IgE level elevated at 1946 on June 2022. Patient has failed multiple bursts of prednisone therapy due to frequent respiratory symptom flare ups Failed maintenance therapies with continuous high dose home oxygen therapy, Advair and rescue albuterol. Fasenra biologic therapy will be continued High level allergies noted to [place] grass, Bong grass, cottonwood, cat dander. Low-dose maintenance prednisone therapy, prednisone 10 mg alternate day will be continued. Historical Allergy screening results were also reviewed. IgE level @1307 on November 2021. Overall clinical picture shows Severe, persistent hypoxic respiratory status with background history of progressively worsening interstitial lung disease consistent with nonspecific interstitial pneumonitis NSIP and progressive hypoxic respiratory failure. Prednisone 20 mg daily will be continued. Empiric alternate day antibiotic therapy with azithromycin will be continued due to high risk status. Ambulatory high-flow oxygen therapy was requested. 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 Pulmonary clinic follow-up in 2 months to reassess management plan for severe persistent allergic asthma and reassess NSIP/progressive I LD status. Patient was advised to contact the office with any change in symptoms status. Goals of care discussion was held on today's visit as well. Patient had a positive experience discussion with palliative therapy that led to a discussion with family members. Patient wants to maintain her quality of life at present but has realistic expectations about her prognosis and irreversible, potentially progressive nature of her pulmonary disease. Assessment Severe persistent allergic asthma Progressive pulmonary fibrosis /UIP/NSIP Severe Hypoxic respiratory failure Severely elevated IgE levels Moderate Peristent Asthma IPF Elevated IgE 1945 Chronic Maintenance Prednisone Therapy status Plan: C/w Esbriet C/w 12L with activity and 10L Cont at rest/HS C/w current BD Rx Fasenra will be continued CONTINUE prednisone 20 mg DAILY as MAINTENANCE therapy C/w Zithromycin 250 mg MWF F/u 3 months Assessment IPF (idiopathic pulmonary fibrosis) (HCC) (Primary) Interstitial lung disease (HCC) Acute on chronic respiratory failure with hypoxia (HCC) Nocturnal hypoxia Dependence on continuous supplemental oxygen Chronic respiratory failure with hypoxia, on home oxygen therapy (HCC) Follow Up: Return in about 3 months (around 10/25/2023) for Clinic Visit. | For: Clinic Visit | Check-out note: Severe persistent allergic asthma Progressive pulmonary fibrosis /UIP/NSIP Severe Hypoxic respiratory failure Severely elevated IgE levels Moderate Peristent Asthma IPF Elevated IgE 1945 Chronic Maintenance Prednisone Therapy status Plan: C/w Esbriet C/w 12L with activity and 10L Cont at rest/HS C/w current BD Rx Fasenra will be continued CONTINUE prednisone 20 mg DAILY as MAINTENANCE therapy C/w Zithromycin 250 mg MWF F/u 3 months Frank Finch MD Subjective CC: Chief Complaint Patient presents with Follow Up Here return 2 mo. HPI: Nursing Notes: Mel GoodwinRAMÓN 07/25/23 1331 Signed Chief Complaint Patient presents with Follow Up Here return 2 mo. Interm History/Respiratory Symptoms Cough: not constant coughing. Hemoptysis: no Sinus Symptoms: congestion,drainage Hospitalizations: no ED Trips: no Triggers: none Nocturnal: sleeps with head elevated CPAP/BiPAP/O2: o2 10 L DME Supplier: [employer] Flu Vaccine: 2022 Pneumovax: 2020 Prevnar: 2019 COVID 19: x6. Asthma Control Test Question 07/17/2023 8:58 PM EDT - Filed by Patient Please select the best response to the five questions below, by clicking the appropriate option button. In the past 4 weeks, how much of the time did your asthma keep you from getting as much done at work, school or at home? (2) Most of the time During the past 4 weeks, how often have you had shortness of breath? (1) More than once a day During the past 4 weeks, how often did your asthma symptoms (wheezing, coughing, shortness of breath, chest tightness or pain) wake you up at night or earlier than usual in the morning? (5) Not at all During the past 4 weeks, how often have you used your rescue inhaler or nebulizer medication (such as albuterol)? (3) 2 or 3 times per week How would you rate your asthma control during the past 4 weeks? (3) Somewhat controlled Total ACT Adult Score (range: 5 - 25) 14 (Moderately Controlled) Total ACT Child Score (range: 0 - 27) Incomplete Myc Visit Accident Related Question Question 07/24/2023 9:09 AM EDT - Filed by Patient Is this visit related to an accident? (i.e work, motor vehicle) No Objective Filed Vitals: 07/25/23 1323 BP: 140/84 Pulse: 84 Resp: 16 Temp: 35.9 C (96.7 F) TempSrc: Tympanic SpO2: 91% Weight: 74.8 kg (165 lb) Height: 1.575 m (5' 2") Exam: Const: No signs of acute distress present. Head/Face: Normal on inspection. Eyes: Conjunctivae clear. Pupils equal round and reactive to light. ENMT: Oropharynx: No erythema, exudate or masses. Posterior pharynx is normal. Neck: Supple and symmetric. Resp: Respiratory examination as outlined above CV: Rate is regular. Rhythm is regular. No heart murmur appreciated. Extremities: No edema of the lower limbs bilaterally. Skin: Skin is warm and dry. Neuro: Coordination normal. No involuntary movement. Psych: Patient's attitude is cooperative. Mood is normal. Affect is normal. Tests reviewed with the patient: CT PULMONARY EMBOLUS W CONTRAST Result Date: 05/08/2023 IMPRESSION: 1. No evidence of central pulmonary embolism. Smaller peripheral pulmonary artery branches are not opacified well enough for comment. 2. Chronic interstitial lung disease/interstitial fibrosis with scattered areas of subpleural honeycombing and diffuse bronchiectasis, similar to prior. Mild reactive mediastinal lymphadenopathy, stable. 3. Moderate plaque in the aorta. Aberrant right subclavian artery. THIS DOCUMENT HAS BEEN ELECTRONICALLY SIGNED BY YI SIMPSON MD XR CHEST 2 VIEWS Result Date: 05/08/2023 IMPRESSION: Chronic interstitial lung disease with mainly peripheral interstitial thickening/fibrotic changes and diffuse bronchiectasis appears slightly more extensive than prior. A component of interstitial pneumonia can not be excluded. THIS DOCUMENT HAS BEEN ELECTRONICALLY SIGNED BY YI SIMPSON MD CT CHEST WO CONTRAST Result Date: 04/04/2023 1. Subpleural reticular and groundglass opacities with traction bronchiolectasis in both lungs worse in the lower lung zones. Findings suggestive of fibrotic NSIP pattern or probable UIP pattern interstitial lung disease 2. Mediastinal and right hilar lymphadenopathy may be reactive 3. Main pulmonary artery is enlarged measuring 3.1 cm Signed by: Kellie Esposito on 04/04/2023 11:03 AM Available Radiologic data was reviewed by me in PACS. The images were shown to the patient and findings were discussed with the patient. HOME MEDICATIONS: predniSONE 20 MG Oral Tablet (Deltasone) Jardiance 10 MG Oral Tablet (Empagliflozin) Atorvastatin Calcium 10 MG Oral Tablet (Lipitor) Azithromycin 250 MG Oral Tablet (Zithromax Z-Guillermo) metFORMIN HCl ER 500 MG Oral Tablet Extended Release 24 Hour (Glucophage XR) Omeprazole 20 MG Oral Tablet Delayed Release Pirfenidone 801 MG Oral Tablet (Esbriet) Losartan Potassium 50 MG Oral Tablet (Cozaar) Breztri Aerosphere 160-9-4.8 MCG/ACT Inhalation Aerosol (Jipuquq-Xcgfsppdlfu-Ricsvkeexn) oxygen IN GAS Fasenra 30 MG/ML Subcutaneous Solution Prefilled Syringe Multi-Vitamins Oral Tablet Repaglinide 0.5 MG Oral Tablet (Prandin) Loratadine 10 MG Oral Tablet (Claritin) Ipratropium-Albuterol 0.5-2.5 (3) MG/3ML Inhalation Solution Probiotic Acidophilus Oral Capsule Benralizumab (Fasenra) prefilled syringe 30 mg Albuterol Sulfate (Proventil) (2.5 MG/3ML) 0.083% inhalation solution 2.5 mg ROS: No reported history of Hemoptysis, Hematemesis, Melena No reported history of Dysuria, Hematuria, Flank Pain No reported history of chronic headache, seizures No reported history of Fall or trauma . No reported history of recent change in weight or appetite. Past Medical History: Diagnosis Date Asthma Chronic respiratory failure (HCC) Diabetes mellitus (HCC) Environmental and seasonal allergies 01/29/2022 Gastroesophageal reflux disease 01/29/2022 HTN, goal below 130/80 11/20/2021 IPF (idiopathic pulmonary fibrosis) (HCC) Obesity (BMI 30.0-34.9) 01/29/2022 Pulmonary arterial hypertension (HCC) Past Surgical History: Procedure Laterality Date CATARACT SURGERY,COMPLEX LAP;W/HYSTERECTOMY PARTIAL HYSTERECTOMY Bilateral Ovaries remain REMOVE CATARACT, INSERT LENS PROSTH Bilateral 2013 Social History Socioeconomic History Marital status: Tobacco Use Smoking status: Never Smokeless tobacco: Never Tobacco comments: Trivial prior smoking in college Vaping Use Vaping Use: Never used Substance and Sexual Activity Alcohol use: Yes Comment: very rare Drug use: Never Social History Narrative No pets No mold Electric heat with 1 small propane heater. Window a/c Social Determinants of Health Food Insecurity: No Food Insecurity (01/28/2022) Hunger Vital Sign Worried About Running Out of Food in the Last Year: Never true Ran Out of Food in the Last Year: Never true Family History Problem Relation Age of Onset Leukemia Mother 69 Prostate cancer Father 75 Other (Other) Father surgical complications Diabetes Sister Diabetes Sister Osteoporosis Sister Breast Cancer Sister Hypertension Sister Diabetes Brother Prostate cancer Brother Review of patient's allergies indicates: Allergen Reactions Lisinopril Cough documented in this encounter Nursing Notes * Mel Goodwin LPN - 07/25/2023 1:26 PM EDT Chief Complaint Patient presents with Follow Up Here return 2 mo. Interm History/Respiratory Symptoms Cough: not constant coughing. Hemoptysis: no Sinus Symptoms: congestion,drainage Hospitalizations: no ED Trips: no Triggers: none Nocturnal: sleeps with head elevated CPAP/BiPAP/O2: o2 10 L DME Supplier: [employer] Flu Vaccine: 2022 Pneumovax: 2020 Prevnar: 2019 COVID 19: x6. Asthma Control Test Question 07/17/2023 8:58 PM EDT - Filed by Patient Please select the best response to the five questions below, by clicking the appropriate option button. In the past 4 weeks, how much of the time did your asthma keep you from getting as much done at work, school or at home? (2) Most of the time During the past 4 weeks, how often have you had shortness of breath? (1) More than once a day During the past 4 weeks, how often did your asthma symptoms (wheezing, coughing, shortness of breath, chest tightness or pain) wake you up at night or earlier than usual in the morning? (5) Not at all During the past 4 weeks, how often have you used your rescue inhaler or nebulizer medication (such as albuterol)? (3) 2 or 3 times per week How would you rate your asthma control during the past 4 weeks? (3) Somewhat controlled Total ACT Adult Score (range: 5 - 25) 14 (Moderately Controlled) Total ACT Child Score (range: 0 - 27) Incomplete Myc Visit Accident Related Question Question 07/24/2023 9:09 AM EDT - Filed by Patient Is this visit related to an accident? (i.e work, motor vehicle) No documented in this encounter Plan of Treatment Upcoming Encounters Date Type Department Care Team (Late st Contact Info) Description 07/29/2023 3:00 PM EDT Office Visit General [facility] [address] [facility] [place], [place] [address] Rizwana Antunez MD [address] [facility] [place] [address] 08/01/2023 1:45 PM EDT Nurse Only Pulmonary Medicine, [facility] [address] [facility] [place] [address] Gw, Nurse Pulmonary [address] [place] [address] [place] [address] 08/07/2023 2:00 PM EDT Therapy Psychology [facility] [address] [facility] [place] [address] Daisy Servin, [facility] [address] [facility] [place] [address] 08/08/2023 11:00 AM EDT Telemedicine Palliative Medicine, [facility] [address] [facility] 5th [place] [address] Radha Almazan PA-C [address] [place] [address] 08/14/2023 1:30 PM EDT Office Visit Cardiology, [facility] [address] [facility] [place] [address] Ni Kay PA-C [address] [place] [address] 10/28/2023 1:40 PM EDT Office Visit Pulmonary Medicine, [facility] [address] [facility] [place] [address] Frank Finch MD [address] [place] [address] 12/02/2023 11:00 AM EDT Imaging Radiology, [facility] [address] [facility] [place] [address] 04/02/2024 1:00 PM EST Imaging Radiology [address] [place] [address] Health Maintenance Due Date Last Done Comments [...] pulmonary fibrosis) (HCC)- Primary Idiopathic pulmonary fibrosis Interstitial lung disease (HCC) Postinflammatory pulmonary fibrosis Acute on chronic respiratory failure with hypoxia (HCC) Nocturnal hypoxia Hypoxemia Dependence on continuous supplemental oxygen Chronic respiratory failure with hypoxia, on home oxygen therapy (HCC) documented in this encounter Advance Directives Documents on File Type Date Recorded 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 No Code Status History Code Status Date Activated Date Inactivated Comments Limited Code 11/26/2022 8:55 PM 12/04/2022 10:12 PM This order reflects the patients wishes and were consensually agreed upon. Question Answer Comments Discussion of Advance Directives occurred with: Patient Does the patient have a Living Will? No Does the patient have Health Care Power of Justice Court Judge? No Bag Valve Device? No Intubation? No Cardiac Compressions? Yes Defibrillation? Yes Synchronized Cardioversion? Yes External Pacemaker? Yes Cardiac Drugs? Yes Care Teams Media Monitor Relationship Specialty Start Date End Date Rizwana Antunez MD [address] [place] [address] PCP - General Internal Medicine 03/28/22 documented as of this encounter
--- OUTSIDE RECORDS SUMMARY | 2023-09-27 14:24 | External Medical Summary | Summary of Care ---
Author Name Unknown Organization [facility] Address [address] [place] [address] Phone [phone] Care Team Providers Care Psychologist Private Practice Name Role Phone Rizwana Antunez MD Primary Care Provider [phone] Reason for Visit * Reason Comments Follow Up Encounter Details Date Type Department Care Team (Late st Contact Info) Description 08/08/2023 11:00 AM EDT Telemedicine Palliative Medicine, [facility] [address] [facility] 5th Floor [place], [place] [id number] aRdha Almazan, PARoxanne [address] [place], [place] [id number] IPF (idiopathic pulmonary fibrosis) ([facility])*; Ambulatory dysfunction; Chronic respiratory failure with hypoxia, on home oxygen therapy (HCC); Goals of care, counseling/discussio n; Palliative care encounter Allergies Active Allergy Reactions Criticality Noted Date [...] A1c goal of less than 7.0% ([facility]),Elevated BUN,Dehydration Take 1 Tablet by mouth [...] rest sitting at times., Reported [facility] Aerosphere 160-9-4.8 MCG/ACT Inhalation Aerosol (Budeson-Glycopyrrol -Formoterol) [...] failure with hypoxia, on home oxygen therapy (HCC),IPF (idiopathic pulmonary fibrosis) ([facility]),Type 2 diabetes mellitus with hemoglobin A1c goal of less than 7.0% ([facility]),halfway (current) use of systemic steroids Take 2 [...] A1c goal of less than 7.0% ([facility]),Dyslipidemia, goal LDL below 100 TAKE 1 TABLET BY MOUTH EVERY DAY IN THE MORNING 90 Tablet 1 06/12/2023 Active Jardiance 10 MG Oral Tablet (Empagliflozin)Indic ations:Type 2 diabetes mellitus with hemoglobin A1c goal of less than 7.0% ([facility]),Chronic respiratory failure with hypoxia, on home oxygen therapy ([facility]),IPF (idiopathic pulmonary fibrosis) ([facility]),halfway (current) use of systemic steroids TAKE 1 TABLET BY MOUTH EVERY DAY IN THE MORNING 30 Tablet 5 07/13/2023 Active predniSONE 20 MG Oral Tablet (Deltasone) TAKE 1 TABLET BY MOUTH EVERY DAY IN THE MORNING 30 Tablet 07/23/2023 Active Losartan Potassium 25 MG Oral Tablet (Cozaar)Indications: Type 2 diabetes mellitus with hemoglobin A1c goal of less than 7.0% ([facility]),HTN, goal below 130/80 Take 1 Tablet by mouth every evening. Restart 03/26/2023 90 Tablet 1 07/29/2023 Active Ipratropium-Albutero l 0.5-2.5 (3) MG/3ML Inhalation Solution (Duoneb) Inhale 3 mL via nebulizer every 6 hours as needed for Dyspnea or Wheezing. 360 mL 2 08/06/2023 Active Hospital, Clinic, or Other Facility Administered Medication Ordered Dose Route Frequency Start Date End Date Status Albuterol Sulfate (Proventil) (2.5 MG/3ML) 0.083% inhalation solution 2.5 mgIndications:IPF (idiopathic pulmonary fibrosis) (HCC) 2.5 mg NEBULIZER PRN 12/05/2022 12/05/2023 Active Benralizumab (Fasenra) prefilled syringe 30 mgIndications:Severe persistent asthma, unspecified whether complicated 30 mg SC [id number] 06/13/2023 12/24/2024 Active documented as of this encounter (statuses as of 08/08/2023) Active Problems Problem Noted Date Diagnosed Date Dyslipidemia, goal LDL below 100 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 [address] 08/28/2023 2:00 PM EDT Therapy Psychology [facility] [address] [facility] [place] [address] Dasiy Servin, COMMUNICATION COORDINATOR [address] [place] [address] 09/09/2023 10:00 AM EDT Telemedicine Palliative Medicine, [facility] [address] [facility] 5th [address] [place] [address] Amarilys Ramirez MD [address] [place] [address] 09/26/2023 1:00 PM EDT Nurse Only Pulmonary Medicine, [facility] [address] [facility] [place] [address] Gw, Nurse Pulmonary [address] [facility] [place] [address] 10/28/2023 1:40 PM EDT Office Visit Pulmonary Medicine, [facility] [address] [place] [address] Farnk Finch MD [address] [place] [address] 12/02/2023 11:00 AM EDT Imaging Radiology, [facility] [address] [facility] [place] [address] 04/02/2024 1:00 PM EST Imaging Rad[facility] [address] [place] [address] Health Maintenance Due Date Last Done Comments [...] pulmonary fibrosis) (HCC)- Primary Idiopathic pulmonary fibrosis Ambulatory dysfunction Chronic respiratory failure with hypoxia, on home oxygen therapy (HCC) Goals of care, counseling/discussion Other specified counseling Palliative care encounter Encounter for palliative care documented in this encounter Advance Directives Documents on File Type Date Recorded 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 Yes Cardiac Drugs? Yes Care Teams Psychologist Private Practice Relationship Specialty Start Date End Date Rizwana Antunez MD [address] [place] [address] PCP - General Internal Medicine 03/28/22 documented as of this encounter
--- OUTSIDE RECORDS SUMMARY | 2023-09-27 14:24 | External Medical Summary | Summary of Care ---
Author Name Unknown Organization [facility] Address [address] [facility] [address] Phone [phone] Care Team Providers Care Shareholder Name Role Phone Rizwana Atnunez MD Primary Care Provider Reason for Visit * Reason Comments Follow Up 6 month follow up. W ith labored breathing will feel hear "thumping". Some chest tightness at that time as well. After resting breathing will settle back down and symptoms subside- sometimes will need to use nebulizer at these times. Encounter Details Date Type Department Care Team (Latest Contact Info) Description 08/14/2023 1:30 PM EDT Office Visit Cardiology, [facility] [address] [facility] [place] [id number] Ni Kay PA-C [address] [facility] [place] [address] Second degree atrioventricular block, Mobitz (type) I*; PSVT (paroxysmal supraventricular tachycardia) (HCC); Dyslipidemia, goal LDL below 100 Allergies Active Allergy Reactions Criticality Noted Date Comments Lisinopril Cough 05/04/2022 documented as of this encounter (statuses as of 08/14/2023) Medications Medication Sig Dispensed Refills Start Date [...] rest sitting at times., Reported on 05/14/2023 [facility] 160-9-4.8 MCG/ACT Inhalation Aerosol (Budeson-Glycopyrrol -Formoterol) Inhale [...] hemoglobin A1c goal of less than 7.0% (HCC),halfway (current) use of systemic steroids Take 2 [...] (idiopathic pulmonary fibrosis) ([facility]),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 TAKE 1 [...] asthma, unspecified whether complicated 30 mg SC [id number] 06/13/2023 12/24/2024 Active documented as of this encounter (statuses as of 08/14/2023) Active Problems Problem Noted Date Diagnosed Date Dyslipidemia, goal LDL below 100 07/29/2023 halfway (current) use of systemic steroids Palliative care [...] as of this encounter (statuses as of 08/14/2023) Resolved Problems Problem Noted Date Diagnosed Date Resolved Date Acute pulmonary edema 11/30/20222022 Bacteremia due to Staphylococcus epidermidis 3 12/10/2022 Multifocal pneumonia 11/26/2022 023 Severe persistent asthma with exacerbation 07/31/2022 12/10/2022 Severe obesity with body mas s index (BMI) of 35.0 to 39.9 with serious comorbidity 11/20/2021 documented as of this encounter (statuses as of 08/14/2023) Immunizations Name Administration Dates Next Due COVID-19 [...] Sign Reading Time Taken Comments Blood Pressure 134/76 08/14/2023 1:47 PM EDT Pulse 100 08/14/2023 1:47 PM EDT Temperature - - Respiratory Rate 18 08/14/2023 1:47 PM EDT Oxygen Saturation - - Inhaled Oxygen Concentration - - Weight 75.5 kg (166 lb 8 oz) 08/14/2023 1:47 PM EDT Height - - Body Mass Index 30.45 07/25/2023 1:23 PM EDT documented in this [...] as of this encounter Progress Notes * Ni Kay PA-C - 08/14/2023 1:43 PM EDT 08/14/2023 Cardiology Follow Up Primary 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 Greene Past Medical History: Second degree AV block, mobitz type 1 Paroxysmal supraventricular tachycardia IPF Chronic hypoxic respiratory failure on 12 L oxygen HPI: Nicolasa Gomez is a 73 year old female who presents for cardiology follow up. Admitted to [facility] 01/01/2023 secondary to acute on chronic respiratory failure with hypoxia due to pulmonary fibrosis. During hospitalization 2 to 1 av block transiently noted on telemetry on 01/01/23 while eating breakfast. No associated symptoms. Cardiology was consulted and metoprolol succinate discontinued. Presents today accompanied by . Has chronic shortness of breath, notes with exertion her oxygen will drop and she has palpitations, chest tightness, resolves when she rests. Denies edema, PND,orthopnea, lightheadedness, syncope. Wears 12L at all times. Compliant with all medications. Follows with pulmonology and palliative medicine. REVIEW OF SYSTEMS: See HPI for pertinent positives. All others negative other than those noted in the HPI. CONSTITUTIONAL: No change in weight, No weakness, No fatigue and No fevers, No sweats or chills. PULMONARY: No cough, sputum, or hemoptysis, No wheezing, + shortness of breath and No recent changein breathing. CARDIOVASCULAR: No chest pain, + dyspnea on exertion, No edema, No palpitations and No syncope. GASTROINTESTINAL: No abdominal pain, No change in bowel habits, No significant heartburn, No nausea, No vomiting, No diarrhea, No constipation, No blood in stools or black tarry stools. No dysphagia. HEMATOLOGIC: No abnormal bleeding and No bruising. NEUROLOGICAL: Normal balance, No headaches and No weakness. Review of patient's allergies indicates: Allergen Reactions Lisinopril Cough Current Outpatient Medications Medication Sig Dispense Refill Probiotic Acidophilus Oral Capsule 2 daily Loratadine 10 MG Oral Tablet (Claritin) Take 1 Tablet by mouth in the morning. (Patient taking differently: Take 1 Tablet by mouth as needed for Rhinitis.) 30 Tablet 11 Fasenra 30 MG/ML Subcutaneous Solution Prefilled Syringe Inject 1 mL under the skin Every Month. Every 8 weeks Multi-Vitamins Oral Tablet Take 1 Tablet by mouth in the morning. Repaglinide 0.5 MG Oral Tablet (Prandin) Take 1 Tablet by mouth in the morning and 1 Tablet at noonand 1 Tablet in the evening. Take before meals. If sugar >140 (using temporarily as holding metformin due to gfr 33 with diuretic use, STOP torsemide and potassium), stat lab 12/28/22. 90 Tablet 0 oxygen IN GAS 6 lpm during the [...] rest sitting at times.) 1 Each 0 [facility] Aerosphere 160-9-4.8 MCG/ACT Inhalation Aerosol (Iaosotj-Rvsvxmgafyl-Bsachgwpqy) Inhale 2 Puffs by mouth in the morning and 2 Puffs in the evening. 10.7 g 11 Omeprazole 20 MG Oral Tablet Delayed Release Take 1 Tablet by mouth in the morning. Still taking. metFORMIN HCl ER 500 MG Oral Tablet Extended Release 24 Hour (Glucophage XR) Take 2 Tablets by mouth daily with dinner. (Restart 1 tab 01/18/2023) inc 2 tabs 01/30/2023, inc 3 tabs 03/26/2023, inc 4 tabs 05/15/2023 360 Tablet 1 Azithromycin 250 MG Oral Tablet (Zithromax Z-Guillermo) Take 1 Tablet by mouth once a day on Saturday, Saturday, and Saturday only for 90 doses. 90 Tablet 0 Atorvastatin Calcium 10 MG Oral Tablet (Lipitor) TAKE 1 TABLET BY MOUTH EVERY DAY IN THE MORNING 90Tablet 1 Jardiance 10 MG Oral Tablet (Empagliflozin) TAKE 1 TABLET BY MOUTH EVERY DAY IN THE MORNING 30 Tablet 5 predniSONE 20 MG Oral Tablet (Deltasone) TAKE 1 TABLET BY MOUTH EVERY DAY IN THE MORNING 30 Tablet 0 Losartan Potassium 25 MG Oral Tablet (Cozaar) Take 1 Tablet by mouth every evening. Restart 03/26/2023 90 Tablet 1 Ipratropium-Albuterol 0.5-2.5 (3) MG/3ML Inhalation Solution (Duoneb) Inhale 3 mL via nebulizer every 6 hours as needed for Dyspnea or Wheezing. 360 mL 2 Current Facility-Administered Medications Medication Dose Route Frequency Provider Last Rate Last Admin Albuterol Sulfate (Proventil) (2.5 MG/3ML) 0.083% inhalation solution 2.5 mg 2.5 mg Nebulizer PRN Braden Angeles MD 2.5 mg at 05/14/23 0913 Benralizumab (Fasenra) prefilled syringe 30 mg 30 mg Subcutaneous Q8 Weeks Frank Finch MD 30 mg at 08/01/23 1407 Past Medical History: Diagnosis Date Asthma Chronic respiratory failure (HCC) Diabetes mellitus (HCC) Environmental and seasonal allergies 01/29/2022 Gastroesophageal reflux disease 01/29/2022 HTN, goal below 130/80 11/20/2021 IPF (idiopathic pulmonary fibrosis) (HCC) Obesity (BMI 30.0-34.9) 01/29/2022 Pulmonary arterial hypertension (HCC) Family History Problem Relation Name Age of Onset Leukemia Mother 69 Prostate cancer Father 75 Other (Other) Father surgical complications Diabetes Sister Linn Diabetes Sister Beata Osteoporosis Sister Beata Breast Cancer Sister Beata Hypertension Sister Jossy Diabetes Brother Dajuan Prostate cancer Brother Dajuan Social History Socioeconomic History Marital status: Tobacco Use Smoking status: Never Smokeless tobacco: Never Tobacco comments: Trivial prior smoking in college Vaping Use Vaping status: Never Used Substance and Sexual Activity Alcohol use: Yes [...] Food in the Last Year: Never true OBJECTIVE/PHYSICAL EXAMINATION: BP 134/76 | Pulse 100 | Resp 18 | Wt 75.5 kg (166 lb 8 oz) | BMI 30.45 kg/m | BSA 1.82 m General: No acute distress. A+Ox3. HEENT: Normocephalic. Atraumatic. PERRL. EOMI. Conjunctiva and sclera clear. NECK: No carotid bruits. No JVD. Carotid upstrokes are brisk. Heart: RRR. S1 and S2 noted. No murmur. No rubs or gallops. PMI non displaced. Lungs: Diminished to auscultation. No wheezes. No rhonchi. No rales. Abdomen: Normal bowel sounds. Soft. Nontender. No masses or organomegaly. No abdominal bruits. Extremities: No edema. No clubbing or cyanosis. Pulses: radial=2/4, posterior tibial=2/4, dorsalis pedis = 2/4. NEURO: No focal deficits. PSYCH: Appropriate affect and insight. DATA Labs & Imaging Reviewed Below: 7 Zio monitor January 08, 2023: Patient had a min HR of 31 bpm, max HR of 146 bpm, and avg HR of 66 bpm. Predominant underlying rhythm was Sinus Rhythm. 3 Supraventricular Tachycardia runs occurred, the run with the fastest interval lasting 20 beats with a max rate of 146 bpm (avg 124 bpm); the run with the fastest interval was also the longest. Second Degree AV Block-Mobitz I (Wenckebach) was present. Isolated SVEs were rare (<1.0%), SVE Couplets were rare (<1.0%), and SVE Triplets were rare (<1.0%). Isolated VEs were rare (<1.0%), VE Couplets were rare (<1.0%), and no VE Triplets were present. 2D echocardiogram report [facility] 12/31/2022: Left ventricular ejection fraction 55 -60% Mild tricuspid regurgitation. PASP 60mmHg Grade 1 DD ASSESSMENT/PLAN: 73 year old female 1. Second degree atrioventricular block, Mobitz (type) I 2. PSVT (paroxysmal supraventricular tachycardia) (HCC) 3. 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 All questions were answered to the patients satisfaction. Patient advised to report to ED with any and all emergencies. The patient agrees to the above plan and will call with additional questions or concerns. Ni Kay PA-C Cardiology, [address] [address] I spent a total of 30 minutes on the date of service in preparation, delivery, and documentation ofthe care provided to Nicolasa Gomez excluding any time spent in the performance of separately billed services. This chart was completed in part utilizing [employer] Speech Voice Recognition Software. Grammatical errors, random word insertions, pronoun errors, and incomplete sentences are an occasional consequence of this system due to software limitations, ambient noise, and hardware issues. Any formal questions or concerns about the content, text, or information contained within the body of this dictation should be directly addressed to the provider for clarification. documented in this encounter Nursing Notes * Jose Juan Soriano LPN - 08/14/2023 1:45 PM EDT Patient identified by full name and date of Chief Complaint Patient presents with Follow Up 6 month follow up. With labored breathing will feel hear "thumping". Some chest tightness at that time as well. After resting breathing will settle back down and symptoms subside- sometimes will needto use nebulizer at these times. Examination Room: 2 Name: Nicolasa Gomez Date of : (1950). Reason for Visit: Follow up Interim Hospitalization(s): [facility] 05/08-05/11/23 Problems/Concerns: See chief complaint Chest Pain/SOB: See chief complaint [facility] Discussed: Not applicable [facility] is a way you can talk to your provider online through e-mail. Would you like to sign up? I can activate it for you? ALREADY ACTIVE Patient was instructed to not get up on the exam table until directed and assisted by their provider; patient is to remain seated in the chair/ wheelchair/ exam table for fall prevention and safety reasons. Patient is aware to have assistance to step down off exam table with personnel. Patient voiced full comprehension of instructions. documented in this encounter Plan of Treatment Upcoming Encounters Date Type Department Care Team (Late st Contact Info) Description 08/28/2023 2:00 PM EDT Therapy Psychology [facility] [address] [facility] [place] [address] Daisy Servin [facility] [address] [place] [address] 09/09/2023 10:00 AM EDT Telemedicine Palliative Medicine, [facility] [address] [facility] 5th Floor [place] [address] Amarilys Ramirez MD [address] [facility] [address] 09/26/2023 1:00 PM EDT Nurse Only Pulmonary Medicine, [facility] [address] [facility] [place] [address] Gw, Nurse Pulmonary [facility] [place] [address] 10/28/2023 1:40 PM EDT Office Visit Pulmonary Medicine, [facility] [address] [facility] [place] [address] Frank Finch MD [address] [facility] [address] 11/04/2023 3:00 PM EDT Office Visit General Internal Medicine [facility] [address] [facility] [place] [address] Rizwana Antunez MD [address] [place] [address] 12/02/2023 11:00 AM EDT Imaging Radiology, [facility] [address] [facility] [place] [address] 02/26/2024 1:30 PM EST Office Visit Cardiology, [facility] [address] [facility] [place] [address] Ni Kay PA-C [address] [facility] [place] [address] 04/02/2024 1:00 PM EST [facility] [address] [facility] [place] [address] Health Maintenance Due Date Last Done Comments [...] as of this encounter Visit Diagnoses Diagnosis Second degree atrioventricular block, Mobitz (type) I- Primary Other second degree atrioventricular block PSVT (paroxysmal supraventricular tachycardia) (HCC) Paroxysmal supraventricular tachycardia Dyslipidemia, goal LDL below 100 Other and unspecified hyperlipidemia documented in this encounter Advance Directives Documents on File Type Date Recorded 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 Yes Cardiac Drugs? Yes Care Teams Shareholder Relationship Specialty Start Date End Date Rizwana Antunez MD [address] [facility] [place] [address] PCP - General Internal Medicine 03/28/22 documented as of this encounter
--- OUTSIDE RECORDS SUMMARY | 2023-09-27 14:24 | External Medical Summary ---
Author Name Unknown Address Unknown Organization [id number]:LABORATORY [facility] - [address] [facility] [address] Laboratory Report Ordering Provider Test Date Status GILBERTO DELCID 07/25/2023 14:25:08 Final Observation Date Value Abnormality Reference (Units ) Status Hep C Ab 07/25/2023 14:25:08 Negative Negative Final Performing Location [facility]ORY [facility] - [address] [facility] [address]
--- OUTSIDE RECORDS SUMMARY | 2023-09-27 14:24 | External Medical Summary ---
Author Name Unknown Address Unknown Organization [id number]:[facility] - [address] [facility] [address] Laboratory Report Ordering Provider Test Date Status JENNI MONTENEGRO 07/25/2023 14:25:08 Final Observation Date Value Abnormality Reference (Units ) Status MYCODE SPECIMEN-SST 07/25/2023 14:25:08 Freezing of extracted DNA, whole blood and/or serum. Final Performing Location [facility] - [address] [facility] [address]
--- OUTSIDE RECORDS SUMMARY | 2023-09-27 14:24 | External Medical Summary ---
Author Name Unknown Address Unknown Organization [id number]:[facility] - [address] [facility] [address] Laboratory Report Ordering Provider Test Date Status JENNI MONTENEGRO 07/25/2023 14:25:08 Final Observation Date Value Abnormality Reference (Units ) Status MYCODE SPECIMEN-SST 07/25/2023 14:25:08 Freezing of extracted DNA, whole blood and/or serum. Final Performing Location LABORATORY C - [address] [facility] [address]
--- OUTSIDE RECORDS SUMMARY | 2023-09-27 14:24 | External Medical Summary ---
Author Name Unknown Address Unknown Organization [id number]:LABORATORY [facility] - [address] [place] [address] Laboratory Report Ordering Provider Test Date Status GILBERTO DELCID 07/25/2023 14:25:08 Final Observation Date Value Abnormality Reference (Units ) Status LDL, (direct) 07/25/2023 14:25:08 92 <=129 (mg/dL) Final LDL Cholesterol Reference Ra nges (mg/dL):
<70 Target level for high risk ASCVD patient
<100 Optimal for general population
100-129 Near optimal for general population
130-159 Borderline high
160-189 High
>=190 Very high Performing Location LABORATORY [facility] - [address] [place] [address]
--- OUTSIDE RECORDS SUMMARY | 2023-09-27 14:24 | External Medical Summary | Summary of Care ---
Author Name Unknown Organization [facility] Address [address] [facility] [place] [address] Phone [phone] Care Team Providers Care Client Development Consultant Name Role Phone Rizwana Antunez MD Primary Care Provider [phone] Reason for Visit * Reason Onset Date Comments Medication Refill 08/01/2023 Encounter Details Date Type Department Care Team (Late st Contact Info) Description 08/01/2023 Refill Pulmonary Medicine, [facility] [address] [facility] [place] [id number] Frank [facility]haliwal MD [address] [facility] [address] Allergies Active Allergy Reactions Criticality Noted Date Comments Lisinopril Cough 05/04/2022 documented as of this encounter (statuses as of 08/06/2023) Medications Medication Sig Dispensed Refills Start Date [...] goal of less than 7.0% ([facility]),Elevated BUN,Dehydration Take 1 Tablet by mouth [...] rest sitting at times., Reported on 05/14/2023 [facility] 160-9-4.8 MCG/ACT Inhalation Aerosol (Budeson-Glycopyrro l-Formoterol) Inhale 2 Puffs by mouth in the morning and 2 Puffs in the evening. 10.7 g 11 01/16/2023 Active Omeprazole 20 MG Oral Tablet Delayed ReleaseIndications: Gastroesophageal reflux disease without esophagitis Take 1 Tablet by mouth in the morning. Still taking. 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 [...] goal of less than 7.0% ([facility]),Dyslipidemia, goal LDL below 100 TAKE 1 TABLET BY MOUTH EVERY DAY IN THE MORNING 90 Tablet 1 06/12/2023 Active Jardiance 10 MG Oral Tablet (Empagliflozin)Arabella cations:Type 2 diabetes mellitus with hemoglobin A1c goal of less than 7.0% ([facility]),Chronic respiratory failure with hypoxia, on home oxygen therapy ([facility]),IPF (idiopathic pulmonary fibrosis) ([facility]),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 Restart 03/26/2023 90 Tablet 1 07/29/2023 Active Ipratropium-Albuter ol 0.5-2.5 (3) MG/3ML Inhalation Solution (Duoneb) Inhale 3 mL via nebulizer every 6 hours as needed for Dyspnea or Wheezing. 360 mL 2 08/06/2023 4 Active Ipratropium-Albuter ol 0.5-2.5 (3) MG/3ML Inhalation Solution Inhale 3 mL via nebulizer every 6 hours as needed. 11/05/2022 4 Discontinu ed(Refill) Hospital, Clinic, or Other Facility Administered Medication Ordered Dose Route Frequency Start Date End Date Status Albuterol Sulfate (Proventil) (2.5 MG/3ML) 0.083% inhalation solution 2.5 mgIndications:IPF (idiopathic pulmonary fibrosis) ([facility]) 2.5 mg NEBULIZER PRN 12/05/2022 12/05/2023 Active Benralizumab (Fasenra) prefilled syringe 30 mgIndications:Severe persistent asthma, unspecified whether complicated 30 mg SC [id number] 06/13/2023 12/24/2024 Active documented as of this encounter (statuses as of 08/06/2023) Active Problems Problem Noted Date Diagnosed Date Dyslipidemia, goal LDL below 100 07/29/2023 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 Palliative care [...] as of this encounter (statuses as of 08/06/2023) Resolved Problems Problem Noted Date Diagnosed Date Resolved Date Acute pulmonary edema 11/30/20222022 Bacteremia due to Staphylococcus epidermidis 12/10/2022 Multifocal pneumonia 11/26/2022 023 Severe persistent asthma with exacerbation 07/31/2022 12/10/2022 Severe obesity with body mas s index (BMI) of 35.0 to 39.9 with serious comorbidity 11/20/2021 documented as of this encounter (statuses as of 08/06/2023) Immunizations Name Administration Dates Next Due COVID-19 [...] Telephone Encounter - Frank Dhaliwal MD - 08/06/2023 6:49 AM EDT Signed Prescriptions: Disp Refills Ipratropium-Albuterol 0.5-2.5 (3) MG/3ML I*360 mL 2 Sig: Inhale 3 mL via nebulizer every 6 hours as needed for Dyspnea or Wheezing.Authorizing Provider: FRANK DHALIWAL documented in this encounter Plan of Treatment Upcoming Encounters Date Type Department Care Team (Late st Contact Info) Description 08/07/2023 2:00 PM EDT Therapy Psychology [facility] [address] [place] [address] Daisy Servin, [facility] [address] [address] 08/08/2023 11:00 AM EDT Telemedicine Palliative Medicine, [address] [place] [address] ThaRadha PA-C [address] [place] [address] 08/14/2023 1:30 PM EDT Office Visit Cardiology, [facility] [address] [facility] [place] [address] Ni Kay [facility]C [address] [facility] [address] 09/26/2023 1:00 PM EDT Nurse Only Pulmonary Medicine, [address] [place] [address] Gw, Nurse Pulmonary [address] [place] [address] [place] [address] 10/28/2023 1:40 PM EDT Office Visit Pulmonary Medicine, [address] [place] [address] Frank Dhaliwal MD [address] [place] [address] 12/02/2023 11:00 AM EDT [address], [address] [address] 04/02/2024 1:00 PM EST 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 Yes Cardiac Drugs? Yes Care Teams Client Development Consultant Relationship Specialty Start Date End Date Rizwana Antunez MD [address] [place] [address] [place] [address] PCP - General Internal Medicine 03/28/22 documented as of this encounter
--- OUTSIDE RECORDS SUMMARY | 2023-09-27 14:24 | External Medical Summary ---
Author Name Unknown Address Unknown Organization K01:[facility] [address] [address] Laboratory Report Ordering Provider Test Date Status GILBERTO DELCID 07/25/2023 14:25:08 Final Observation Date Value Abnormality Reference (Units) Status Hepatitis B virus surface Ab [Units/volume] in Serum or Plasma by Immunoassay 07/25/2023 14:25:08 <3.5 (mIU/mL) Final Hepatitis B virus surface Ab [Presence] in Serum by Immunoassay 07/25/2023 14:25:08 Negative Final HEPATITIS B SURFACE ANTIBODY, INTERPRETATION 07/25/2023 14:25:08 NOT immune to Hepatitis B Virus Final POSITIVE: >=11.5 mIU/mL
INDETERMINATE: 8.5-<11.5 mIU/mL
NEGATIVE: <8.5 mIU/mL Performing Location [facility] [address] [place] [address]
--- OUTSIDE RECORDS SUMMARY | 2023-09-27 14:24 | External Medical Summary ---
Author Name Unknown Address Unknown Organization [id number]:[facility] [place] [address] [facility] [address] Laboratory Report Ordering Provider Test Date Status BHAVINGILBERTO 07/25/2023 14:25:08 Final Observation Date Value Abnormality Reference (Units ) Status Triglyceride 07/25/2023 14:25:08 229 Above high normal <=174 (mg/dL) Final Triglyceride Reference Range s (mg/dL):
<150 Acceptable
150-174 Borderline high
175-499 High
>=500 Very high Cholesterol 07/25/2023 14:25:08 193 <200 (mg /dL) Final Total Cholesterol Reference Ranges (mg/dL):
<200 Desirable
200-239 Borderline high
>=240 High HDL 07/25/2023 14:25:08 64 >49 (mg/dL ) Final HDL Cholesterol Reference Ra nges (mg/dL):
>=60 High (Desirable)
<50 Low (Undesirable) For Females
<40 Low (Undesirable) For Males NON-HDL CHOLESTEROL 07/25/2023 14:25:08 129 <=159 (mg/dL) Final Non-HDL Cholesterol Referenc e Range (mg/dL):
<100 Target level for high risk ASCVD patient
<130 Optimal for general population
130-159 Near optimal for general population
160-189 Borderline High
190-219 High
>=220 Very High Performing Location [facility] [address] [place] [address]
--- OUTSIDE RECORDS SUMMARY | 2023-09-27 14:25 | External Medical Summary | Summary of Care ---
Author Name Unknown Organization [facility] Address [address] [place] [address] Phone [phone] Care Team Providers Care Product Safety Professional Name Role Phone Rizwana Antunez MD Primary Care Provider [phone] Reason for Visit * Reason Onset Date Comments Hospital Follow-Up Hospital disc harge follow up - pt denied any new concerns. Hospital Follow-Up 05/15/2023 Encounter Details Date Type Department Care Team (Late st Contact Info) Description 05/15/2023 4:00 PM EST Office Visit General Internal Medicine [facility] [place] [address] [facility] [place] [address] Rizwana Antunez MD [address] [place] [address] Hospital discharge follow-up*; Chronic respiratory failure with hypoxia, on home oxygen therapy (HCC); IPF (idiopathic pulmonary fibrosis) ([facility]); Pulmonary hypertension ([facility]); Elevated IgE level; Type 2 diabetes mellitus with hemoglobin A1c goal of less than 7.0% ([facility]); 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 90 Tablet 3 3 Active Ipratropium-Albute rol 0.5-2.5 (3) MG/3ML Inhalation Solution Inhale 3 mL via nebulizer every 6 hours as needed. 0 3 Active Probiotic Acidophilus Oral CapsuleIndications :Hospital discharge follow-up,Coagulas e negative Staphylococcus bacteremia 2 daily 0 3 Active Loratadine 10 MG Oral Tablet (Claritin)Indicati ons:Environmental and seasonal allergies Take 1 Tablet by mouth in the morning. 30 Tablet 11 3 Active Additional Information Patient taking differently:10 mg OralPRN, Rhinitis, Reported on 12/24/2022 Fasenra 30 MG/ML Subcutaneous Solution Prefilled Syringe Inject 1 mL under the skin Every Month. Every 4 weeks 0 3 Active Multi-Vitamins Oral Tablet Take 1 Tablet by mouth in the morning. 0 Active Repaglinide 0.5 MG Oral Tablet (Prandin)Indicatio ns:Type 2 diabetes mellitus with hemoglobin A1c goal of less than 7.0% (HCC),Elevated BUN,Dehydration Take 1 Tablet by mouth in the morning and 1 Tablet at noon and 1 Tablet in the evening. Take before meals. If sugar >140 (using temporarily as holding metformin due to gfr 33 with diuretic use, STOP torsemide and potassium), stat lab 12/28/22. 90 Tablet 0 3 Active oxygen IN GAS 6 lpm during the day and 4 lpm at bedtime, titrate to 10-15 liters on exertion to keep saturation >90% since hosp DC 1 Each 0 3 Active Additional Information Patient taking differently: 10 L/min(Oxygen) Nasal cannula CONTINUOUS, 10-12 lpm during the day and 10 lpm at bedtime, titrate to 10-15 liters on exertion to keep saturation >90% since hosp DC. Pt wears 8 liters at rest sitting at times., Reported on 05/14/2023 Breztri Aerosphere 160-9-4.8 MCG/ACT Inhalation Aerosol (Budeson-Glycopyrr ol-Formoterol) Inhale 2 Puffs by mouth in the morning and 2 Puffs in the evening. 10.7 g 11 3 Active Losartan Potassium 50 MG Oral Tablet (Cozaar) Take 0.5 Tablets by mouth every evening. Restart 03/26/2023-has at home 0 4 Active Empagliflozin 10 MG Oral Tablet (Jardiance)Indicat ions:Type 2 diabetes mellitus with hemoglobin A1c goal of less than 7.0% ([facility]),Chronic respiratory failure with hypoxia, on home oxygen therapy ([facility]),IPF (idiopathic pulmonary fibrosis) ([facility]),snf (current) use of systemic steroids Take 1 Tablet by mouth in the morning. 90 Tablet 0 4 Active Pirfenidone 801 MG Oral Tablet (Esbriet)Indicatio ns:Chronic idiopathic pulmonary fibrosis (HCC),Chronic respiratory failure with hypoxia, on home oxygen therapy ([facility]) Take 801 mg by mouth in the morning and 801 mg at noon and 801 mg before bedtime. one pill three times a day. 270 Tablet 5 4 024 Active predniSONE 20 MG Oral Tablet (Deltasone) Take 1 Tablet by mouth in the morning. 30 Tablet 0 4 Active Omeprazole 20 MG Oral Tablet Delayed ReleaseIndications :Gastroesophageal reflux disease without esophagitis Take 1 Tablet by mouth in the morning. Still taking. 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 (Restart 1 tab 01/18/2023) inc 2 tabs 01/30/2023, inc 3 tabs 03/26/2023, inc 4 tabs 05/15/2023 360 Tablet 1 4 Active Omeprazole 20 MG Oral Tablet Delayed Release Take 1 Tablet by mouth in the morning. 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 (Restart 1 tab 01/18/2023) inc 2 tabs 01/30/2023, inc 3 tabs 03/26/2023 60 Tablet 0 4 024 Discontinued Hospital, Clinic, or Other Facility Administered Medication Ordered Dose Route Frequency Start Date End Date Status Albuterol Sulfate (Proventil) (2.5 MG/3ML) 0.083% inhalation solution 2.5 mgIndications:IPF (idiopathic pulmonary fibrosis) ([facility]) 2.5 mg NEBULIZER PRN 12/05/2022 12/05/2023 Active documented as of this encounter (statuses as of 06/02/2023) Active Problems Problem Noted Date Diagnosed Date [...] as of this encounter (statuses as of 06/02/2023) Resolved Problems Problem Noted Date Diagnosed Date Resolved Date Acute pulmonary edema 11/30/20222022 Bacteremia due to Staphylococcus epidermidis 3 12/10/2022 Multifocal pneumonia 11/26/2022 023 Severe persistent asthma with exacerbation 07/31/2022 12/10/2022 Severe obesity with body mas s index (BMI) of 35.0 to 39.9 with serious comorbidity 11/20/2021 documented as of this encounter (statuses as of 06/02/2023) Immunizations Name Administration Dates Next Due COVID-19 [...] Answer Date Recorded PHQ Adult Total Score 0 05/04/2022 Hunger Vital Sign Answer Date Recorded Within [...] Sign Reading Time Taken Comments Blood Pressure 128/66 05/15/2023 4:10 PM EST Pulse 70 05/15/2023 4:10 PM EST Temperature 36.2 C (97.1 F) 05/15/2023 4:10 PM ES T Respiratory Rate - - Oxygen Saturation 94% 05/15/2023 4:10 PM EST Inhaled Oxygen Concentration - - Weight 75.2 kg (165 lb 11.2 oz) 05/15/2023 4:10 PM EST Height 157.8 cm (5' 2.13") 05/15/2023 4:10 PM ES T Body Mass Index 30.18 05/15/2023 4:10 PM EST documented in this encounter Functional Status Functional [...] Progress Notes * Rizwana Antunez MD - 05/15/2023 4:28 PM EST SUBJECTIVE: Nicolasa Gomez is a 73 year old female. Chief Complaint Patient presents with Hospital Follow-Up Hospital discharge follow up - pt denied any new concerns. HPI: Patient presents today for hospital follow-up appointment. Reviewed available hospital records including history and physical, labs, imaging and discharge summary. Patient with type 2 diabetes since 2019, hypertension, GERD, osteoporosis, allergic rhinitis, severe persistent asthma with chronic idiopathic pulmonary fibrosis diag 2018 when lived in [place], chronic respiratory failure with hypoxia on oxygen therapy 4-6 L at rest and 6-10 L with activity,severe obesity with gradual /intentional wt loss. Admitted to the hospital in October, November, December for acute on chronic respiratory high failure with hypoxia calcium asthma exacerbation. Attempts at weaning prednisone brings back her symptoms.She had comprehensive evaluation at [facility] end of March 2023 and felt not a candidate for lung transplant. Readmitted 05/08/23 to 05/11/2023 at [facility] Took Z-Guillermo 05/06/2023 Seen by pulmonology, started [...] a family meeting scheduled 05/22/23 and with pul05/24/23 Last visit she had requested a scooter, had PT evaluation, states [facility] will be sending paperwork Blood sugars staying 92 today was 123-willing to have increase dose of metformin. Next DEXA scan 12/02/2023--she has deferred prophylactic alendronate, Labs and imaging as noted below 05/08/23--CXR: Chronic interstitial lung disease with mainly [...] in the aorta. Aberrant right subclavian artery Component Latest Ref Rng 03/22/2023 05/08/2023 05/09/2023 05/10/2023 05/11/2023 WBC 4.00 - 10.80 K/uL 13.72 (H) 12.02 (H) 11.46 (H) 10.93 (H) 10.95 (H) RBC 3.85 - 5.15 M/uL 3.99 4.00 3.56 3.34 3.28 HGB 12.0 - 15.3 g/dL 11.6 (L) 11.3 (L) 10.1 (L) 9.8 (L) 9.4 (L) HCT 36.0 - 45.2 % 37.3 36.6 32.1 (L) 30.9 (L) 30.3 (L) MCV 81.5 - 97.5 fL 93.5 91.5 90.2 92.5 92.4 MCH 27.0 - 34.0 pg 29.1 28.3 28.4 29.3 28.7 MCHC 32.0 - 36.0 g/dL 31.1 30.9 31.5 31.7 31.0 RDW 11.5 - 15.5 % 16.2 15.5 15.7 16.1 16.0 PLT 140 - 400 K/uL 292 271 260 244 228 MPV 6.6 - 11.1 fL 11.1 10.6 11.1 11.0 11.0 nRBCs <=0 /100 WBCs 0 0 0 0 0 Component Latest Ref Rng 05/08/2023 05/09/2023 05/11/2023 BUN 6 - 20 mg/dL 25 (H) 32 (H) Creatinine 0.5 - 1.0 mg/dL 0.9 0.9 Estimated Glomerular Filtration Rate >=60 mL/min 68 68 Sodium 135 - 146 mmol/L 138 143 Potassium 3.5 - 5.1 mmol/L 4.5 3.9 Chloride 98 - 107 mmol/L 103 105 CO2 22 - 32 mmol/L 22 25 Anion Gap 7 - 15 mmol/L 13 13 Glucose 70 - 120 mg/dL 175 (H) 131 (H) Albumin 3.8 - 5.0 g/dL 3.6 (L) AST 10 - 35 U/L 19 Alkaline Phosphatase 35 - 130 U/L 61 Bilirubin, Total <=1.2 mg/dL 0.2 Calcium 8.4 - 10.2 mg/dL 9.7 9.8 Protein 6.0 - 8.3 g/dL 7.9 ALT 10 - 35 U/L 10 BNP, NT-Pro <300 pg/mL 187 Magnesium 1.5 - 2.6 mg/dL 2.5 Phosphorus 2.5 - 4.8 mg/dL 4.0 Hemoglobin AIC Results: Lab Results Component Value Date/Time HEMOGLOBIN A1C - [facility] 7.4 (H) 03/22/2023 04:36 PM HEMOGLOBIN A1C - [facility] 7.1 (H) 11/27/2022 05:37 AM HEMOGLOBIN A1C - [facility] 6.7 (H) 05/03/2022 10:10 AM Immunization History Administered Date(s) Administered COVID-19 mRNA, [...] 12/12/2021, 12/24/2022 Varicella Zoster Vaccine (Adult) 03/26/2014 Patient Active Problem List Diagnosis Code HTN, goal below 130/80 I10 Type 2 diabetes mellitus with hemoglobin A1c goal of less than 7.0% ([facility]) E11.9 IPF (idiopathic pulmonary fibrosis) ([facility]) J84.112 Encounter for screening mammogram for breast cancer Z12.31 Screening for osteoporosis Z13.820 Menopause Z78.0 Screen for colon cancer Z12.11 Nocturnal hypoxia G47.34 Chronic respiratory failure with hypoxia, on home oxygen therapy ([facility]) J96.11, Z99.81 Gastroesophageal reflux disease K21.9 Obesity (BMI 30.0-34.9) E66.9 Environmental and seasonal allergies J30.89 Dependence on continuous supplemental oxygen Z99.81 Interstitial lung disease (HCC) J84.9 Acute on chronic respiratory failure with hypoxia (HCC) J96.21 Elevated IgE level R76.8 Right foot drop M21.371 Pulmonary hypertension (HCC) I27.20 Asthma, severe persistent J45.50 Dyspnea on minimal exertion R06.09 Palliative care encounter Z51.5 Goals of care, counseling/discussion Z71.89 Current Outpatient Medications Medication Sig Dispense Refill Atorvastatin Calcium 10 MG Oral Tablet (Lipitor) TAKE 1 TABLET BY MOUTH IN THE MORNING. 90 Tablet 3 Ipratropium-Albuterol 0.5-2.5 (3) MG/3ML Inhalation Solution Inhale 3 mL via nebulizer every 6 hours as needed. Probiotic Acidophilus Oral Capsule 2 daily Loratadine 10 MG Oral Tablet (Claritin) Take 1 Tablet by mouth in the morning. (Patient taking differently: Take 1 Tablet by mouth as needed for Rhinitis.) 30 Tablet 11 Fasenra 30 MG/ML Subcutaneous Solution Prefilled Syringe Inject 1 mL under the skin Every Month. Every 4 weeks Multi-Vitamins Oral Tablet Take 1 Tablet by mouth in the morning. oxygen IN GAS 6 lpm during the [...] 0 Breztri Aerosphere 160-9-4.8 MCG/ACT Inhalation Aerosol (Durvwwe-Gihsswolply-Bmfjnfyfpd) Inhale 2 Puffs by mouth in the morning and 2 Puffs in the evening. 10.7 g 11 metFORMIN HCl ER 500 MG Oral Tablet Extended Release 24 Hour (Glucophage XR) Take 2 Tablets by mouth daily with dinner. (Restart 1 tab 01/18/2023) inc 2 tabs 01/30/2023, inc 3 tabs 03/26/2023 60 Tablet 0 Losartan Potassium 50 MG Oral Tablet (Cozaar) Take 0.5 Tablets by mouth every evening. Restart 03/26/2023-has at home Empagliflozin 10 MG Oral Tablet (Jardiance) Take 1 Tablet by mouth in the morning. 90 Tablet 0 Pirfenidone 801 MG Oral Tablet (Esbriet) Take 801 mg by mouth in the morning and 801 mg at noon [id number] mg before bedtime. one pill three times a day. 270 Tablet 5 predniSONE 20 MG Oral Tablet (Deltasone) Take 1 Tablet by mouth in the morning. 30 Tablet 0 Repaglinide 0.5 MG Oral Tablet (Prandin) Take 1 Tablet by mouth in the morning and 1 Tablet at noonand 1 Tablet in the evening. Take before meals. If sugar >140 (using temporarily as holding metformin due to gfr 33 with diuretic use, STOP torsemide and potassium), stat lab 12/28/22. 90 Tablet 0 Current Facility-Administered Medications Medication Dose Route Frequency Provider Last Rate Last Admin Albuterol Sulfate (Proventil) (2.5 MG/3ML) 0.083% inhalation solution 2.5 mg 2.5 mg Nebulizer PRN Braden Angeles MD 2.5 mg at 05/14/23 0913 Review of patient's allergies indicates: Allergen Reactions Lisinopril Cough Immunization History Administered Date(s) Administered COVID-19 mRNA, LNP-s, No Preserve, 2-Dose Series (Moderna) 03/29/2020, 04/26/2020 COVID-19, LNP-s, No Preserve, Mir-sucrose, Ages 12+ (Pfizer) 01/08/2022 COVID-19, MRNA-LNP, 23-24, PF, 30 MCG/0.3 mL, 12 YRS AND ABOVE, IM ([facility]) 01/26/2023 COVID-19, mRNA, LNP-s, PF, Booster, 100mcg/0.5mg (Moderna) 01/16/2021, 07/07/2021 Pneumococcal Conjugate Vacc, 13 Valent (Prevnar) 11/27/2018 Pneumococcal Polysaccharide PPV23 (Pneumovax) 01/04/2020 RSV Vac., Recomb, Adjuvant, PF,0.5 Ml (Arexvy) 01/26/2023 Seasonal Influenza, Quadrivalent Hd (Fluzone Hd) 12/12/2021, 12/24/2022 Varicella Zoster Vaccine (Adult) 03/26/2014 OBJECTIVE: BP 128/66 | Pulse 70 | Temp 36.2 C (97.1 F) (Tympanic) | Ht 1.578 m (5' 2.13") | Wt 75.2 kg (165 lb 11.2 oz) | SpO2 94% | BMI 30.18 kg/m | BSA 1.82 m On 8 lts O2. PHYSICAL EXAM: General: alert, healthy, no distress, well developed Neck: supple, no adenopathy, thyroid Not enlarged without nodularity Heart: regular rhythm and rate,No murmurs. Lungs: lungs clear to auscultation ex chr rales lower 1/3 lung Extremities: no edema Rt Foot drop--resolved Abdomen: Soft, non-tender, normal bowel sounds, no masses or organomegaly ASSESSMENT/PLAN: Hospital discharge follow-up (Primary) - DISCH MED RECON CUR MED LIS - CBC WITH WBC DIFFERENTIAL; Future; Expected date: 05/22/2023 - IRON SCREEN, INCLUDING TIBC; Future; Expected date: 05/22/2023 Chronic respiratory failure with hypoxia, on home oxygen therapy (HCC) - DISCH MED RECON CUR MED LIS - CBC WITH WBC DIFFERENTIAL; Future; Expected date: 05/22/2023 - metFORMIN HCl ER 500 MG Oral Tablet Extended Release 24 Hour (Glucophage XR); Take 2 Tablets by mouth daily with dinner. (Restart 1 tab 01/18/2023) inc 2 tabs 01/30/2023, inc 3 tabs 03/26/2023, inc 4 tabs 05/15/2023 IPF (idiopathic pulmonary fibrosis) (HCC) - DISCH MED RECON CUR MED LIS - metFORMIN HCl ER 500 MG Oral Tablet Extended Release 24 Hour (Glucophage XR); Take 2 Tablets by mouth daily with dinner. (Restart 1 tab 01/18/2023) inc 2 tabs 01/30/2023, inc 3 tabs 03/26/2023, inc 4 tabs 05/15/2023 Pulmonary hypertension (HCC) - DISCH MED RECON CUR MED LIS Elevated IgE level - DISCH MED RECON CUR MED LIS Type 2 diabetes mellitus with hemoglobin A1c goal of less than 7.0% (HCC) - metFORMIN HCl ER 500 MG Oral Tablet Extended Release 24 Hour (Glucophage XR); Take 2 Tablets by mouth daily with dinner. (Restart 1 tab 01/18/2023) inc 2 tabs 01/30/2023, inc 3 tabs 03/26/2023, inc 4 tabs 05/15/2023 snf (current) use of systemic steroids - metFORMIN HCl ER 500 MG Oral Tablet Extended Release 24 Hour (Glucophage XR); Take 2 Tablets by mouth daily with dinner. (Restart 1 tab 01/18/2023) inc 2 tabs 01/30/2023, inc 3 tabs 03/26/2023, inc 4 tabs 05/15/2023 Nutritional anemia, unspecified - CBC WITH WBC DIFFERENTIAL; Future; Expected date: 05/22/2023 - IRON SCREEN, INCLUDING TIBC; Future; Expected date: 05/22/2023 HTN, goal below 130/80 Gastroesophageal reflux disease without esophagitis - Omeprazole 20 MG Oral Tablet Delayed Release; Take 1 Tablet by mouth in the morning. Still taking. Follow Up: Return in about 2 months (around 07/15/2023), or if symptoms worsen or fail to improve, for Return with Physician, Fasting Labs 2-5 Days Before Next Visit. | For: Return with Physician, Fasting Labs 2-5 Days Before Next Visit | Check-out note: Cancel appt with me 06/25/23 an dlab appt in june, vinh for JULY (This note was completed using the dictation [...] with plan of care. Rizwana Antunez MD 05/15/2023 documented in this encounter Nursing Notes * Vale Garg MED ASSIST - 05/15/2023 4:12 PM EST Chief Complaint Patient presents with Hospital Follow-Up Hospital discharge follow up - pt denied any new concerns. documented in this encounter Plan of Treatment Upcoming Encounters Date Type Department Care Team (Edgardo wolf Contact Info) Description 06/13/2023 1:00 PM EDT Nurse Only Pulmonary Medicine, [facility] [address] [facility] [place] [address] Gw, Nurse Pulmonary [address] [facility] [place] [address] 07/09/2023 11:00 AM EDT Telemedicine Palliative Medicine, [facility] [address] [facility] [address] [place] [address] Radha Almazan PA-C [address] [place] [address] 07/25/2023 12:20 PM EDT Office Visit Pulmonary Medicine, [facility] [address] [facility] [place] [address] [facility]ch [facility] [address] [facility] [address] 07/29/2023 3:00 PM EDT Office Visit General Internal Medicine [facility] [address] [facility] [place] [address] Rizwana Antunez MD [address] [facility] [place] [address] 08/14/2023 1:30 PM EDT Office Visit Cardiology, [facility] [address] [facility] [place] [address] Ni Kay PA-C [address] [place] [address] 12/02/2023 11:00 AM EDT Imaging Radiology, [facility] [address] [facility] [place] [address] 04/02/2024 1:00 PM EST Imaging Radiology [facility] [address] [facility] [address] [place] [address] Health Maintenance Due Date Last Done Comments Zoster Vaccines (2 of 3) 05/21/2014 03/26/2014 Depression Screening 05/04/2023 05/04/2022 Diabetic Eye Exam Discontinued 01/16/2019 Cologuard Discontinued 02/16/2022, 02/13/2022, 1208/2021 Influenza Vaccine (FLU shot) Completed 12/24/2022, 12/12/2021 COVID-19 Vaccine Completed 01/26/2023, , 07/07/2021, Additional history exists Diabetic Foot Exam Discontinued 01/30/2023, 01/29/2022 Albumin/Creatinine Ratio Discontinued 03/26/2023, 01/10 Colorectal Cancer Screening Discontinued Fecal Occult Blood Test Discontinued 03/26/2023 Colonoscopy Discontinued Sigmoidoscopy Discontinued documented as of this encounter Medical Devices Not on filedocumented as of this encounter Results * IRON SCREEN, INCLUDING TIBC (05/24/2023 10:03 AM EDT) Iron 118 33 - 151 ug/dL 05/24/2023 7:32 PM EDT [facility] Iron Binding Capacity 284 250 - 425 ug/dL 05/24/2023 7:32 PM EDT [facility] Transferrin Saturation Percent 42 15 - 55 % 05/24/2023 7:32 PM EDT [facility] Blood Venous blood specimen / Unknown Venipuncture / Unknown 05/24/2023 10:03 AM EDT 05/24/2023 10:03 AM EDT Rizwana Antunez MD LAB BLOOD ORDERABLES [facility] [address] [place] [address] documented in this encounter Visit Diagnoses Diagnosis Hospital discharge follow-up- Primary Other follow-up examination Chronic respiratory failure with hypoxia, on home oxygen therapy (HCC) IPF (idiopathic pulmonary fibrosis) (HCC) Idiopathic pulmonary fibrosis Pulmonary hypertension (HCC) Other chronic pulmonary heart diseases Elevated IgE level Other and unspecified nonspecific immunological findings Type 2 diabetes mellitus with hemoglobin A1c goal of less than 7.0% (HCC) 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 No Code Status History Code Status Date Activated Date Inactivated Comments Limited Code 11/26/2022 8:55 PM 12/04/2022 10:12 PM This order reflects the patients wishes and were consensually agreed upon. Question Answer Comments Discussion of Advance Directives occurred with: Patient Does the patient have a Living Will? No Does the patient have Health Care Power of Data Compiler? No Bag Valve Device? No Intubation? No Cardiac Compressions? Yes Defibrillation? Yes Synchronized Cardioversion? Yes External Pacemaker? Yes Cardiac Drugs? Yes Care Teams Product Safety Professional Relationship Specialty Start Date End Date Rizwana Antunez MD [address] [place] [address] [place] [address] PCP - General Internal Medicine 03/28/22 documented as of this encounter
--- OUTSIDE RECORDS SUMMARY | 2023-09-27 14:25 | External Medical Summary | Summary of Care ---
Author Name Unknown Organization [facility] Address [address] [place] [address] Phone [phone] Care Team Providers Care Brick Paver Name Role Phone Rizwana Antunez MD Primary Care Provider [phone] Reason for Visit * Reason Onset Date Comments Medication Refill 06/24/2023 Encounter Details Date Type Department Care Team (Late st Contact Info) Description 06/24/2023 Refill [facility] [address] [facility] [place] [address] Rizwana Antunez MD [address] [place] [address] Allergies Active Allergy Reactions Criticality Noted Date Comments Lisinopril Cough 05/04/2022 documented as of this encounter (statuses as of 06/26/2023) Medications Medication Sig Dispensed Refills Start Date End Date Status Ipratropium-Albuter ol 0.5-2.5 (3) MG/3ML Inhalation Solution Inhale 3 mL via nebulizer every 6 hours as needed. 0 11/05/2022 Active Probiotic Acidophilus Oral CapsuleIndications: Hospital discharge follow-up,Coagulase [...] 0 Active Repaglinide 0.5 MG Oral Tablet (Prandin)Indication s:Type 2 diabetes mellitus with hemoglobin A1c goal of less than 7.0% ([facility]),Elevated BUN,Dehydration Take 1 Tablet by [...] rest sitting at times., Reported on 05/14/2023 [facility] Aerosphere 160-9-4.8 MCG/ACT Inhalation Aerosol (Budeson-Glycopyrro l-Formoterol) Inhale 2 Puffs by mouth in the morning and 2 Puffs in the evening. 10.7 g 11 01/16/2023 Active Losartan Potassium 50 MG Oral Tablet (Cozaar) Take 0.5 Tablets by mouth every evening. 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 (Restart 1 tab 01/18/2023) inc 2 tabs 01/30/2023, inc 3 tabs 03/26/2023, inc 4 tabs 05/15/2023 360 Tablet 1 05/15/2023 Active Azithromycin 250 MG Oral Tablet (Zithromax Z-Guillermo) Take 1 Tablet by mouth once a day on Saturday, Saturday, and Saturday only for 90 doses. 90 Tablet 0 05/24/2023 4 Active Atorvastatin Calcium 10 MG Oral Tablet (Lipitor)Indication s:Type 2 diabetes mellitus with hemoglobin A1c goal of less than 7.0% ([facility]),Dyslipidemia, goal LDL below 100 TAKE 1 TABLET BY MOUTH EVERY DAY IN THE MORNING 90 Tablet 1 06/12/2023 Active predniSONE 20 MG Oral Tablet (Deltasone) Take 1 Tablet by mouth in the morning. 30 Tablet 0 06/26/2023 Active predniSONE 20 MG Oral Tablet (Deltasone) Take 1 Tablet by mouth in the morning. 30 Tablet 0 05/11/2023 4 Discontinu ed(Refill) Hospital, Clinic, or Other Facility Administered Medication Ordered Dose Route Frequency Start Date End Date Status Albuterol Sulfate (Proventil) (2.5 MG/3ML) 0.083% inhalation solution 2.5 mgIndications:IPF (idiopathic pulmonary fibrosis) ([facility]) 2.5 mg NEBULIZER PRN 12/05/2022 12/05/2023 Active Benralizumab (Fasenra) prefilled syringe 30 mgIndications:Severe persistent asthma, unspecified whether complicated 30 mg SC [id number] 06/13/2023 12/24/2024 Active documented as of this encounter (statuses as of 06/26/2023) Active Problems Problem Noted Date Diagnosed Date [...] as of this encounter (statuses as of 06/26/2023) Resolved Problems Problem Noted Date Diagnosed Date Resolved Date Acute pulmonary edema 11/30/20222022 Bacteremia due to Staphylococcus epidermidis 3 12/10/2022 Multifocal pneumonia 11/26/2022 023 Severe persistent asthma with exacerbation 07/31/2022 12/10/2022 Severe obesity with body mas s index (BMI) of 35.0 to 39.9 with serious comorbidity 11/20/2021 documented as of this encounter (statuses as of 06/26/2023) Immunizations Name Administration Dates Next Due COVID-19 [...] encounter Miscellaneous Notes * Telephone Encounter - Izzy Case MD - 06/26/2023 2:23 PM EDTSigned Prescriptions: Disp Refills predniSONE 20 MG Oral Tablet (Deltasone) 30 Tab*0 Sig: Take 1 Tablet by mouth in the morning. Authorizing Provider: IZZY CASE * Telephone Encounter - Ghazala Mcpherson [facility] - 06/26/2023 6:58 AM EDT Pending Prescriptions: Disp Refills predniSONE 20 MG Oral Tablet (Deltasone) 30 Tab*0 Sig: Take 1 Tablet by mouth in the morning. * Telephone Encounter - Ghazala Mcpherson RP - 06/26/2023 6:58 AM EDT Refill pharmacists currently not authorized to approve refills for this class of medication per refill protocol. Please approve if appropriate. Thank you, Ghazala Mcpherson, PharmD. Clinical Pharmacist Pharmacy Refill Call Center 06/26/2023, 6:58 AM documented in this encounter Plan of Treatment Upcoming Encounters Date Type Department Care Team (Late st Contact Info) Description 07/09/2023 11:00 AM EDT Telemedicine Palliative Medicine, [facility] [address] [facility] 5th [place] [address] Radha Almazan PA-C [address] [place] [address] 07/18/2023 1:00 PM EDT Nurse Only Pulmonary Medicine, [facility] [address] [facility] [place] [address] Gw, Nurse Pulmonary [address] [place] [address] [place] [address] 07/25/2023 12:20 PM EDT Office Visit Pulmonary Medicine, [facility] 132 [facility] [place] [address] Frank Finch MD [address] [facility] [address] 07/29/2023 3:00 PM EDT Office Visit [facility] [address] [facility] [place] [address] Rizwana Antunez MD [address] [place] [address] 08/14/2023 1:30 PM EDT Office Visit Cardiology, [facility] [address] [facility] [place] [address] Ni Kay PA-C [address] [place] [address] 12/02/2023 11:00 AM EDT Imaging Radiology, [facility] [address] [facility] [place] [address] 04/02/2024 1:00 PM EST Imaging Radiology [address] [address] Health Maintenance Due Date Last Done Comments Zoster Vaccines (2 of 3) 05/21/2014 03/26/2014 Depression Screening 05/04/2023 05/04/2022 Diabetic Eye Exam Discontinued 01/16/2019 Cologuard Discontinued 02/16/2022, 02/13/2022, 08/2021 Influenza Vaccine (FLU shot) Completed 12/24/2022, 12/12/2021 [...] Documents on File Type Date Recorded Patient Lever Tender Expl anation POLST 05/24/2023 9:25 AM POLST [...] the patient have Health Care Power of Professional Programmer Analyst? No Code Status History Code Status Date Activated Date Inactivated Comments Limited Code 11/26/2022 8:55 PM 12/04/2022 10:12 PM This order reflects the patients wishes and were consensually agreed upon. Question Answer Comments Discussion of Advance Directives occurred with: Patient Does the patient have a Living Will? No Does the patient have Health Care Power of Professional Programmer Analyst? No Bag Valve Device? No Intubation? No Cardiac Compressions? Yes Defibrillation? Yes Synchronized Cardioversion? Yes External Pacemaker? Yes Cardiac Drugs? Yes Care Teams Brick Paver Relationship Specialty Start Date End Date Rizwana Antunez MD [address] [place] [id number] PCP - General Internal Medicine 03/28/22 documented as of this encounter
--- OUTSIDE RECORDS SUMMARY | 2023-09-27 14:25 | External Medical Summary | Summary of Care ---
Author Name Unknown Organization [facility] Address [address] [place] [address] Phone [phone] Care Team Providers Care Billiard Parlor Manager Name Role Phone Rizwana Antunez MD Primary Care Provider [phone] Reason for Visit * Precert (Within 10 days (routine)) - Authorized Specialty Diagnoses / Procedures Referred By Contac t Referred To Contact Pulmonary Diseases / Pulmonary Diagnoses Severe persistent asthma, uncomplicated Procedures BENRALIZUMAB, 1 MG, INJ Frank Finch MD [address] [place] [address] Frank Finch MD [address] [place] [address] Referral ID Status Reason Start Date Expiration Date V isits Requested Visits Authorized [id number] Authorized Precert 04/22/2023 04/22/2024 [id number] Encounter Details Date Type Department Care Team (Late st Contact Info) Description 06/13/2023 1:00 PM EDT Nurse Only Pulmonary Medicine, [facility] [address] [place] [address] Gw, Nurse Pulmonary [address] [place] [address] Allergies Active Allergy Reactions Criticality Noted Date Comments Lisinopril Cough 05/04/2022 documented as of this encounter (statuses as of 06/14/2023) Medications Medication Sig Dispensed Refills Start Date [...] 03/26/2023 Active Empagliflozin 10 MG Oral Tablet (Jardiance)Indicatio ns:Type 2 diabetes mellitus with hemoglobin A1c goal of less than 7.0% ([facility]),Chronic respiratory failure with hypoxia, on home oxygen therapy ([facility]),IPF (idiopathic pulmonary fibrosis) ([facility]),jail (current) use of systemic steroids Take 1 Tablet by mouth in the morning. 90 Tablet 0 04/16/2023 Active Pirfenidone 801 MG Oral Tablet (Esbriet)Indications :Chronic idiopathic pulmonary fibrosis (HCC),Chronic respiratory failure with hypoxia, on home oxygen therapy ([facility]) Take 801 mg by mouth in the morning and 801 mg at noon and 801 mg before bedtime. one pill three times a day. 270 Tablet 5 05/07/2023 Active predniSONE 20 MG Oral Tablet (Deltasone) Take 1 Tablet by mouth in the morning. 30 Tablet 0 05/11/2023 Active Omeprazole 20 MG Oral Tablet Delayed ReleaseIndications:G astroesophageal reflux disease without esophagitis Take 1 Tablet by mouth in the morning. Still taking. 0 05/15/2023 Active metFORMIN HCl ER 500 MG Oral Tablet Extended Release 24 Hour (Glucophage XR)Indications:Chron ic respiratory failure with hypoxia, on home oxygen therapy ([facility]),IPF (idiopathic pulmonary fibrosis) ([facility]),Type 2 diabetes mellitus with hemoglobin A1c goal of less than 7.0% ([facility]),jail (current) use of systemic steroids Take 2 [...] hemoglobin A1c goal of less than 7.0% (HCC),Dyslipidemia, goal LDL below 100 TAKE 1 TABLET BY MOUTH EVERY DAY IN THE MORNING 90 Tablet 1 06/12/2023 Active Hospital, Clinic, or Other Facility Administered Medication Ordered Dose Route Frequency Start Date End Date Status Albuterol Sulfate (Proventil) (2.5 MG/3ML) 0.083% inhalation solution 2.5 mgIndications:IPF (idiopathic pulmonary fibrosis) (HCC) 2.5 mg NEBULIZER PRN 12/05/2022 12/05/2023 Active Benralizumab (Fasenra) prefilled syringe 30 mgIndications:Severe persistent asthma, unspecified whether complicated 30 mg SC [id number] 06/13/2023 12/24/2024 Active documented as of this encounter (statuses as of 06/14/2023) Active Problems Problem Noted Date Diagnosed Date [...] as of this encounter (statuses as of 06/14/2023) Resolved Problems Problem Noted Date Diagnosed Date Resolved Date Acute pulmonary edema 11/30/20222022 Bacteremia due to Staphylococcus epidermidis 3 12/10/2022 Multifocal pneumonia 11/26/2022 023 Severe persistent asthma with exacerbation 07/31/2022 12/10/2022 Severe obesity with body mas s index (BMI) of 35.0 to 39.9 with serious comorbidity 11/20/2021 documented as of this encounter (statuses as of 06/14/2023) Immunizations Name Administration Dates Next Due COVID-19 mRNA, LNP-s, No Pre serve, 2-Dose Series (Moderna) 04/26/2020,03/29/2020 COVID-19, LNP-s, No Preserve , Mir-sucrose, Ages 12+ ([employer]) 01/08/2022 COVID-19, mRNA, LNP-s, PF, B ooster, [...] Comments Blood Pressure - - Pulse 99 06/13/2023 1:02 PM EDT Temperature 36 C (96.8 F) 06/13/2023 1:02 PM EDT Respiratory Rate 18 06/13/2023 1:02 PM EDT Oxygen Saturation 96% 06/13/2023 1:02 PM EDT Inhaled Oxygen Concentration - - [...] 07/09/2023 11:00 AM EDT Telemedicine Palliative Medicine, [address] 5[address] [place] [address] Radha Almazan PA-C 400 [facility] [place] [address] 07/18/2023 1:00 PM EDT Nurse Only Pulmonary Medicine, [address] [place] [address] Gw, Nurse Pulmonary [address] [facility] [place] [address] 07/25/2023 12:20 PM EDT Office Visit Pulmonary Medicine, [facility] [address] [facility] [place] [address] Frank [facility]ch MD [address] [facility] [address] 07/29/2023 3:00 PM EDT Office Visit General Internal Medicine [facility] 200 [facility] [place] [address] Rizwana Antunez MD 200 [facility] [place], [place] [address] 08/14/2023 1:30 PM EDT Office Visit Cardiology, [facility] [address] [facility] [place] [address] Ni Kay PA-C 400 [facility] [place] [id number] 12/02/2023 11:00 AM EDT Imaging Radiology, [facility] [address] [facility] [place] [address] 04/02/2024 1:00 PM EST Imaging [facility] [address] [facility] 132 [facility] [place] [address] Health Maintenance Due Date Last Done Comments [...] prefilled syringe 30 mg 30 mg, Subcutaneous, [id number], First dose on Camila 06/13/23 at 1630, Last dose on Camila 10/29/24 at 1630, For 10 doses Given 06/13/2023 6:58 AM EDT 30 mg Arm Right Upper documented in this encounter Advance Directives Documents on File Type Date Recorded 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 No Code Status History Code Status Date Activated Date Inactivated Comments Limited Code 11/26/2022 8:55 PM 12/04/2022 10:12 PM This order reflects the patients wishes and were consensually agreed upon. Question Answer Comments Discussion of Advance Directives occurred with: Patient Does the patient have a Living Will? No Does the patient have Health Care Power of Manager Basketball? No Bag Valve Device? No Intubation? No Cardiac Compressions? Yes Defibrillation? Yes Synchronized Cardioversion? Yes External Pacemaker? Yes Cardiac Drugs? Yes Care Teams Billiard Parlor Manager Relationship Specialty Start Date End Date Rizwana Antunez MD [address] [place] [address] [place] [address] PCP - General Internal Medicine 03/28/22 documented as of this encounter
--- OUTSIDE RECORDS SUMMARY | 2023-09-27 14:25 | External Medical Summary | Summary of Care ---
Author Name Unknown Organization [facility] Address [address] [place] [facility] [place] [address] Phone [phone] Care Team Providers Care Tele Marketing Executive Name Role Phone Rizwana Antunez MD Primary Care Provider [phone] Reason for Visit * Reason Onset Date Comments Med Request 06/13/2023 Fasen Encounter Details Date Type Department Care Team (Late st Contact Info) Description 06/13/2023 Telephone Pulmonary Medicine, [facility] [address] [facility] [place] [address] [facility] [address] [facility] [address] [facility] Request ([facility]) Allergies Active Allergy Reactions Criticality Noted Date Comments Lisinopril Cough 05/04/2022 documented as of this encounter (statuses as of 06/13/2023) Medications Medication Sig Dispensed Refills Start Date [...] hemoglobin A1c goal of less than 7.0% ([facility]),Elevated BUN,Dehydration Take 1 Tablet by mouth [...] rest sitting at times., Reported on 05/14/2023 [facility] Aerosphere 160-9-4.8 MCG/ACT Inhalation Aerosol (Budeson-Glycopyrrol -Formoterol) [...] hemoglobin A1c goal of less than 7.0% ([facility]),Chronic respiratory failure with hypoxia, on home oxygen therapy ([facility]),IPF (idiopathic pulmonary fibrosis) ([facility]),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 90 Tablet 0 04/16/2023 Active Pirfenidone 801 MG Oral Tablet (Esbriet)Indications :Chronic idiopathic pulmonary fibrosis (HCC),Chronic respiratory failure with hypoxia, on home oxygen therapy ([facility]) Take 801 mg by mouth in [...] failure with hypoxia, on home oxygen therapy ([facility]),IPF (idiopathic pulmonary fibrosis) ([facility]),Type 2 diabetes mellitus with hemoglobin A1c goal of less than 7.0% ([facility]),retirement (current) use of systemic steroids Take 2 [...] hemoglobin A1c goal of less than 7.0% ([facility]),Dyslipidemia, goal LDL below 100 TAKE 1 TABLET BY MOUTH EVERY DAY IN THE MORNING 90 Tablet 1 06/12/2023 Active Hospital, Clinic, or Other Facility Administered Medication Ordered Dose Route Frequency Start Date End Date Status Albuterol Sulfate (Proventil) (2.5 MG/3ML) 0.083% inhalation solution 2.5 mgIndications:IPF (idiopathic pulmonary fibrosis) ([facility]) 2.5 mg NEBULIZER PRN 12/05/2022 12/05/2023 Active Benralizumab (Fasenra) prefilled syringe 30 mgIndications:Severe persistent asthma, unspecified whether complicated 30 mg SC [id number] 06/13/2023 12/24/2024 Active documented as of this encounter (statuses as of 06/13/2023) Active Problems Problem Noted Date Diagnosed Date [...] as of this encounter (statuses as of 06/13/2023) Resolved Problems Problem Noted Date Diagnosed Date Resolved Date Acute pulmonary edema 11/30/20222022 Bacteremia due to Staphylococcus epidermidis 3 12/10/2022 Multifocal pneumonia 11/26/2022 023 Severe persistent asthma with exacerbation 07/31/2022 12/10/2022 Severe obesity with body mas s index (BMI) of 35.0 to 39.9 with serious comorbidity 11/20/2021 documented as of this encounter (statuses as of 06/13/2023) Immunizations Name Administration Dates Next Due COVID-19 [...] 07/09/2023 11:00 AM EDT Telemedicine Palliative Medicine, [facility] [address] [facility] 5th [place] [address] Radha Almazan PA-C 400 [place] [address] 07/18/2023 1:00 PM EDT Nurse Only Pulmonary Medicine, [facility] 132 [facility] [place] [address] Gw, Nurse Pulmonary 132 [facility] [place] [address] 07/25/2023 12:20 PM EDT Office Visit Pulmonary Medicine, [facility] 132 [facility] [place] [address] Frank Finch MD [address] [place] [facility] [place] [address] 07/29/2023 3:00 PM EDT Office Visit General Internal Medicine [address] [place] [address] [place] [address] Rizwana Antunez MD [address] [place] [address] 08/14/2023 1:30 PM EDT Office Visit Cardiology, [facility] [address] [facility] [place] [address] Ni Kay PA-C [address] [place] [address] 12/02/2023 11:00 AM EDT Imaging Radiology, [facility] [address] [facility] [place] [address] 04/02/2024 1:00 PM EST Imaging Radiology [address] [place] [address] Health Maintenance Due Date Last Done Comments [...] as of this encounter Visit Diagnoses Diagnosis Severe persistent asthma, unspecified whether complicated- Primary documented in this encounter Advance Directives Documents on File Type Date Recorded Patient Flight Surgeon Expl anation POLST 05/24/2023 9:25 AM POLST [...] the patient have Health Care Power of Storage Battery Inspector? No Code Status History Code Status Date Activated Date Inactivated Comments Limited Code 11/26/2022 8:55 PM 12/04/2022 10:12 PM This order reflects the patients wishes and were consensually agreed upon. Question Answer Comments Discussion of Advance Directives occurred with: Patient Does the patient have a Living Will? No Does the patient have Health Care Power of Storage Battery Inspector? No Bag Valve Device? No Intubation? No Cardiac Compressions? Yes Defibrillation? Yes Synchronized Cardioversion? Yes External Pacemaker? Yes Cardiac Drugs? Yes Care Teams Tele Marketing Executive Relationship Specialty Start Date End Date Rizwana Antunez MD [address] [place] [id number] PCP - General Internal Medicine 03/28/22 documented as of this encounter
--- OUTSIDE RECORDS SUMMARY | 2023-09-27 14:25 | External Medical Summary | Summary of Care ---
Author Name Unknown Organization [facility] Address [address] [place] [address] Phone [phone] Care Team Providers Care Flavor Maker Name Role Phone Rizwana Antunez MD Primary Care Provider [phone] Reason for Visit * Reason Onset Date Comments Advice 07/11/2023 Re: Michael Encounter Details Date Type Department Care Team (Late st Contact Info) Description 07/11/2023 Telephone Pulmonary Medicine, [facility] [address] [facility] [place] [address] Services, Scheduling [address] [place] [address] Advice (Re: Michael) Allergies Active Allergy Reactions Criticality Noted Date Comments Lisinopril Cough 05/04/2022 documented as of this encounter (statuses as of 07/11/2023) Medications Medication Sig Dispensed Refills Start Date [...] home oxygen therapy (HCC),IPF (idiopathic pulmonary fibrosis) (HCC),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 30 Tablet 0 06/26/2023 Active Hospital, Clinic, or Other Facility Administered Medication Ordered Dose Route Frequency Start Date End Date Status Albuterol Sulfate (Proventil) (2.5 MG/3ML) 0.083% inhalation solution 2.5 mgIndications:IPF (idiopathic pulmonary fibrosis) ([facility]) 2.5 mg NEBULIZER PRN 12/05/2022 12/05/2023 Active Benralizumab (Fasenra) prefilled syringe 30 mgIndications:Severe persistent asthma, unspecified whether complicated 30 mg SC [id number] 06/13/2023 12/24/2024 Active documented as of this encounter (statuses as of 07/11/2023) Active Problems Problem Noted Date Diagnosed Date [...] as of this encounter (statuses as of 07/11/2023) Resolved Problems Problem Noted Date Diagnosed Date Resolved Date Acute pulmonary edema 11/30/20222022 Bacteremia due to Staphylococcus epidermidis 3 12/10/2022 Multifocal pneumonia 11/26/2022 023 Severe persistent asthma with exacerbation 07/31/2022 12/10/2022 Severe obesity with body mas s index (BMI) of 35.0 to 39.9 with serious comorbidity 11/20/2021 documented as of this encounter (statuses as of 07/11/2023) Immunizations Name Administration Dates Next Due COVID-19 [...] encounter Miscellaneous Notes * Telephone Encounter - Laura Harding LPN - 07/11/2023 2:55 PM EDT MyG sent. Will have Fasenra shipped to be here for her 07/24 appt. * Telephone Encounter - Edwige Alvarez OSA - 07/11/2023 2:47 PM EDT Pt called and she was told that her Fasenra is not going to be ready and she was wondering if she can get a call when it is shipped to the office, and maybe match her appt with Dr. Finch. documented in this encounter Plan of Treatment Upcoming Encounters Date Type Department Care Team (Late st Contact Info) Description 07/19/2023 12:00 PM EDT Therapy Psychology [facility] [address] [place] [address] Daisy Servin, DISH MAKER [address] [place] [address] 07/25/2023 12:20 PM EDT Office Visit Pulmonary Medicine, [facility] [address] [place] [address] Frank Finch MD [address] [place] [address] 07/29/2023 3:00 PM EDT Office Visit General Internal Medicine [facility] [address] [place] [address] Rizwana Antunez MD [address] [place] [address] 08/08/2023 11:00 AM EDT Telemedicine Palliative Medicine, [facility] 400 [facility] 5th [place] [address] Radha Almazan PA-C [address] [place] [address] 08/14/2023 1:30 PM EDT Office Visit Cardiology, [facility] 132 [facility] [place] [address] Ni Kay PA-C [address] [place] [address] 12/02/2023 11:00 AM EDT Imaging Radiology, [facility] [address] [facility] [place] [address] 04/02/2024 1:00 PM EST Imaging Radiology [facility] 1st [facility] 132 [facility] [place] [address] Health Maintenance Due Date Last Done Comments [...] Documents on File Type Date Recorded Patient Talent Program Manager Tana betancurion POLST 05/24/2023 9:25 AM POLST (Rawls ited [...] the patient have Health Care Power of Hypertrichologist? No Code Status History Code Status Date Activated Date Inactivated Comments Limited Code 11/26/2022 8:55 PM 12/04/2022 10:12 PM This order reflects the patients wishes and were consensually agreed upon. Question Answer Comments Discussion of Advance Directives occurred with: Patient Does the patient have a Living Will? No Does the patient have Health Care Power of Hypertrichologist? No Bag Valve Device? No Intubation? No Cardiac Compressions? Yes Defibrillation? Yes Synchronized Cardioversion? Yes External Pacemaker? Yes Cardiac Drugs? Yes Care Teams Flavor Maker Relationship Specialty Start Date End Date Rizwana Antunez MD 200 [place] [address] PCP - General Internal Medicine 03/28/22 documented as of this encounter
--- OUTSIDE RECORDS SUMMARY | 2023-09-27 14:25 | External Medical Summary | Summary of Care ---
Author Name Unknown Organization [facility] Address [address] [place] [address] Phone [phone] Care Team Providers Care Farm Contractor Name Role Phone Rizwana Antunez MD Primary Care Provider [phone] Reason for Visit * Reason Comments eRx-Medication Refill Encounter Details Date Type Department Care Team (Late st Contact Info) Description 06/11/2023 Refill General Internal Medicine [facility] [address] [facility] [place], [place] [address] Rizwana Antunez MD 200 [place] [address] Type 2 diabetes mellitus with hemoglobin A1c goal of less than 7.0% ([facility]); Dyslipidemia, goal LDL below 100 Allergies Active Allergy Reactions Criticality Noted Date Comments Lisinopril Cough 05/04/2022 documented as of this encounter (statuses as of 06/12/2023) Medications Medication Sig Dispensed Refills Start Date End Date Status Ipratropium-Albuter ol 0.5-2.5 (3) MG/3ML Inhalation Solution Inhale 3 mL via nebulizer every 6 hours as needed. 0 3 Active Probiotic Acidophilus Oral CapsuleIndications: Hospital discharge follow-up,Coagulase negative Staphylococcus bacteremia 2 daily 0 3 Active Loratadine 10 MG Oral Tablet (Claritin)Indicatio [...] hemoglobin A1c goal of less than 7.0% ([facility]),Elevated BUN,Dehydration Take 1 Tablet by mouth in [...] rest sitting at times., Reported on 05/14/2023 [facility] Aerosphere 160-9-4.8 MCG/ACT Inhalation Aerosol (Budeson-Glycopyrro l-Formoterol) Inhale 2 Puffs by mouth in the morning and 2 Puffs in the evening. 10.7 g 11 3 Active Losartan Potassium 50 MG Oral Tablet (Cozaar) Take 0.5 Tablets by mouth every evening. Restart 03/26/2023-has at home 0 4 Active Empagliflozin 10 MG Oral Tablet (Jardiance)Indicati ons:Type 2 diabetes mellitus with hemoglobin A1c goal of less than 7.0% ([facility]),Chronic respiratory failure with hypoxia, on home oxygen therapy ([facility]),IPF (idiopathic pulmonary fibrosis) ([facility]),intermediate (current) use of systemic steroids Take 1 Tablet by mouth in the morning. 90 Tablet 0 4 Active Pirfenidone 801 MG Oral Tablet (Esbriet)Indication s:Chronic idiopathic pulmonary fibrosis (HCC),Chronic respiratory failure with hypoxia, on home oxygen therapy ([facility]) Take 801 mg by mouth in the morning and 801 mg at noon and 801 mg before bedtime. one pill three times a day. 270 Tablet 5 4 08/05/19 24 Active predniSONE 20 MG Oral Tablet (Deltasone) Take 1 Tablet by mouth in the morning. 30 Tablet 0 4 Active Omeprazole 20 MG Oral Tablet Delayed ReleaseIndications: Gastroesophageal reflux disease without esophagitis Take 1 Tablet by mouth in the morning. Still taking. 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 (Restart 1 tab 01/18/2023) inc 2 tabs 01/30/2023, inc 3 tabs 03/26/2023, inc 4 tabs 05/15/2023 360 Tablet 1 4 Active Azithromycin 250 MG Oral Tablet (Zithromax Z-Guillermo) Take 1 Tablet by mouth once a day on Saturday, Saturday, and Saturday only for 90 doses. 90 Tablet 0 4 12/19/19 24 Active Atorvastatin Calcium 10 MG Oral Tablet (Lipitor)Indication s:Type 2 diabetes mellitus with hemoglobin A1c goal of less than 7.0% ([facility]),Dyslipidemia, goal LDL below 100 TAKE 1 TABLET BY MOUTH EVERY DAY IN THE MORNING 90 Tablet 1 4 Active Atorvastatin Calcium 10 MG Oral Tablet (Lipitor)Indication s:Type 2 diabetes mellitus with hemoglobin A1c goal of less than 7.0% ([facility]),Dyslipidemia, goal LDL below 100 TAKE 1 TABLET BY MOUTH IN THE MORNING. 90 Tablet 3 3 06/12/19 24 Discontinued Hospital, Clinic, or Other Facility Administered Medication Ordered Dose Route Frequency Start Date End Date Status Albuterol Sulfate (Proventil) (2.5 MG/3ML) 0.083% inhalation solution 2.5 mgIndications:IPF (idiopathic pulmonary fibrosis) (HCC) 2.5 mg NEBULIZER PRN 12/05/2022 12/05/2023 Active documented as of this encounter (statuses as of 06/12/2023) Active Problems Problem Noted Date Diagnosed Date [...] as of this encounter (statuses as of 06/12/2023) Resolved Problems Problem Noted Date Diagnosed Date Resolved Date Acute pulmonary edema 11/30/20222022 Bacteremia due to Staphylococcus epidermidis 3 12/10/2022 Multifocal pneumonia 11/26/2022 023 Severe persistent asthma with exacerbation 07/31/2022 12/10/2022 Severe obesity with body mas s index (BMI) of 35.0 to 39.9 with serious comorbidity 11/20/2021 documented as of this encounter (statuses as of 06/12/2023) Immunizations Name Administration Dates Next Due COVID-19 [...] encounter Miscellaneous Notes * Telephone Encounter - Reggie Farrell [facility] - 06/12/2023 9:30 AM EDT Signed Prescriptions: Disp Refills Atorvastatin Calcium 10 MG Oral Tablet (Li*90 Tab*1 Sig: TAKE 1 TABLET BY MOUTH EVERY DAY IN THE MORNINGAuthorizing Provider: Lamonte ANTUNEZ User: REGGIE FARRELL documented in this encounter Plan of Treatment Upcoming Encounters Date Type Department Care Team (Late st Contact Info) Description 06/13/2023 1:00 PM EDT Nurse Only Pulmonary Medicine, [facility] 132 [facility] [place] [address] Gw, Nurse Pulmonary 132 [facility] [place] [address] 07/09/2023 11:00 AM EDT Telemedicine Palliative Medicine, [facility] 400 [facility] 5th Floor [place] [address] Radha Almazan PA-C [address] [place], [place] [id number] 07/25/2023 12:20 PM EDT Office Visit Pulmonary Medicine, [facility] 132 [place] [address] Frank Finch MD [address] [facility] [address] 07/29/2023 3:00 PM EDT Office Visit General Internal Medicine [facility] 200 [facility] [place] [address] Rizwana Antunez MD 200 [facility] [place], [place] [address] 08/14/2023 1:30 PM EDT Office Visit Cardiology, [facility] 132 [facility] [address] Ni Kay PA-C [address] [place] [address] 12/02/2023 11:00 AM EDT Imaging Radiology, [facility] [address] [facility] [place] [address] 04/02/2024 1:00 PM EST Imaging Radiology [address] [place] [address] Health Maintenance Due Date Last Done Comments [...] Documents on File Type Date Recorded Patient Crisis Specialist Expl anation POLST 05/24/2023 9:25 AM POLST [...] the patient have Health Care Power of Furnace Maintenance? No Code Status History Code Status Date Activated Date Inactivated Comments Limited Code 11/26/2022 8:55 PM 12/04/2022 10:12 PM This order reflects the patients wishes and were consensually agreed upon. Question Answer Comments Discussion of Advance Directives occurred with: Patient Does the patient have a Living Will? No Does the patient have Health Care Power of Furnace Maintenance? No Bag Valve Device? No Intubation? No Cardiac Compressions? Yes Defibrillation? Yes Synchronized Cardioversion? Yes External Pacemaker? Yes Cardiac Drugs? Yes Care Teams Farm Contractor Relationship Specialty Start Date End Date Rizwana Antunez MD 200 [place] [address] PCP - General Internal Medicine 03/28/22 documented as of this encounter
--- OUTSIDE RECORDS SUMMARY | 2023-09-27 14:25 | External Medical Summary | Summary of Care ---
Author Name Unknown Organization [facility] Address [address] [place] [facility] [place] [place] [address] Phone [phone] Care Team Providers Care Autocad Draftsman Name Role Phone Rizwana Antunez MD Primary Care Provider [phone] Reason for Referral * Evaluate & Treat - Unlimited Visits (Within 10 days (routine)) - Pending Review Specialty Diagnoses / Procedures Referred By Kyle mike Referred To Contact Psychology Diagnoses IPF (idiopathic pulmonary fibrosis) (HCC) Chronic respiratory failure with hypoxia, on home oxygen therapy (HCC) Radha Almazan PA-C [address] [place] [address] Referral ID Status Reason Start Date Expiration Date Visits Requested Visits Authorized [id number] Pending Review Specialty Services Required 07/09/[phone] Question Answer Referral Priority Within 10 days (routine) Where should this appointment be scheduled? [facility] Is this referral for medication management? No Reason for Referral: Coping with Chronic Medical Condition Specific Condition? Other (Comment) Reason for Visit * Reason Comments Follow Up Encounter Details Date Type Department Care Team (Late st Contact Info) Description 07/09/2023 11:00 AM EDT Telemedicine Palliative Medicine, [facility] 400 [facility] 5th Floor [place], [place] [id number] Radha Almazan PA-C [address] [place] [address] IPF (idiopathic pulmonary fibrosis) ([facility])*; Chronic respiratory failure with hypoxia, on home oxygen therapy ([facility]) Allergies Active Allergy Reactions Criticality Noted Date Comments Lisinopril Cough 05/04/2022 documented as of this encounter (statuses as of 07/09/2023) Medications Medication Sig Dispensed Refills Start Date [...] goal of less than 7.0% ([facility]),Elevated BUN,Dehydration Take 1 Tablet by mouth in [...] sitting at times., Reported on 05/14/2023 [employer] 160-9-4.8 MCG/ACT Inhalation Aerosol (Budeson-Glycopyrrol -Formoterol) Inhale [...] goal of less than 7.0% ([facility]),Chronic respiratory failure with hypoxia, on home oxygen therapy ([facility]),IPF (idiopathic pulmonary fibrosis) ([facility]),[facility] (current) use of systemic steroids Take 1 Tablet by mouth in the morning. 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 Take 2 [...] 2.5 mgIndications:IPF (idiopathic pulmonary fibrosis) ([facility]) 2.5 mg NEBULIZER PRN 12/05/2022 12/05/2023 Active Benralizumab (Fasenra) prefilled syringe 30 mgIndications:Severe persistent asthma, unspecified whether complicated 30 mg SC [id number] 06/13/2023 12/24/2024 Active documented as of this encounter (statuses as of 07/09/2023) Active Problems Problem Noted Date Diagnosed Date [...] as of this encounter (statuses as of 07/09/2023) Resolved Problems Problem Noted Date Diagnosed Date Resolved Date Acute pulmonary edema 11/30/20222022 Bacteremia due to Staphylococcus epidermidis 3 12/10/2022 Multifocal pneumonia 11/26/2022 023 Severe persistent asthma with exacerbation 07/31/2022 12/10/2022 Severe obesity with body mas s index (BMI) of 35.0 to 39.9 with serious comorbidity 11/20/2021 documented as of this encounter (statuses as of 07/09/2023) Immunizations Name Administration Dates Next Due COVID-19 mRNA, LNP-s, No Pre serve, 2-Dose Series (Moderna) 04/26/2020,03/29/2020 COVID-19, LNP-s, No Preserve , Mir-sucrose, Ages 12+ ([employer]) 01/08/2022 COVID-19, mRNA, LNP-s, PF, B ooster, [...] as of this encounter Progress Notes * Radha Almazan PA-C - 07/09/2023 11:07 AM EDT Palliative Medicine Outpatient Progress Note IN HOME TELEMEDICINE VISIT [facility] [address] [place] [address] [place] [address] Name: Nicolasa Gomez Date: 07/09/2023 I was in a hospital or clinic location. After connecting through televideo, patient was verified with two unique identifiers. Patient (or authorized legal hvac sales representative) was then informed that this was a Telemedicine visit and being conducted confidentially over secure lines. Methods to assure confidentiality were taken. Patient acknowledged consent and understanding of privacy and security of the Telemedicine visit. The patient agreed to participate. HPI: Nicolasa Gomez is a 73 year old female with pulmonary fibrosis seen in follow-up for goals ofcare and symptom management. Pulmonary has been keeping her on Prednisone 20 mg daily which helps with her breathing. She has noticed this helps, but her energy is poor the day after any big outings/activities. She says that overall, she's doing "OK". She continues 12L/min with activity and 10L at rest. She got a wheelchair, and she has some oxygen tank support now on the wheelchair. This allows her to go out and about a little more. She does use scooters at the store which is nice and gives her some independence. She does have some 'bad days' with her moods, and she feels that she would benefit from counseling. Advanced Care Planning (see ACP Tab): AD in EMR: No POLST in EMR: Yes Examination: No vital signs as visit completed via telemedicine. Constitutional: no acute distress, chronically ill, on oxygen via nasal cannula. Data Review: External notes reviewed: Pulmonary 05/24/23- noted continued prednisone daily ASSESSMENT/PLAN: Nicolasa Gomez is a 73 year old female seen in follow-up for goals of care and symptom management. 1. IPF (idiopathic pulmonary fibrosis) (HCC) 2. Chronic respiratory failure with hypoxia, on home oxygen therapy (HCC) Continues f/u with Pulm. Continues prednisone and O2 supplementation 3. Mood Referral placed for psychology. Also discussed options such as [employer] and local psychology offices. She does not wish to start any medication at this time. - ADULT/PEDS PSYCHOLOGY REFERRAL OP 4. Functional decline Using a wheelchair at home or motorized scooter when in the stores. She has looked into getting motorized scooter at home but insurance will not cover this. 5. Goals of care Continue current management. DNR if admitted as previously discussed. Follow up in 1 month per patient's preference on video. I spent a total of 40 minutes on the date of service in preparation, delivery, and documentation ofthe care provided to Nicolasa Gomez. Radha Almazan PA-C Palliative Medicine Physician Pickle Pumper documented in this encounter Plan of Treatment Upcoming Encounters Date Type Department Care Team (Late st Contact Info) Description 07/18/2023 1:00 PM EDT Nurse Only Pulmonary Medicine, [facility] 132 [facility] [place] [address] Gw, Nurse Pulmonary [address] [facility] [place] [address] 07/25/2023 12:20 PM EDT Office Visit Pulmonary Medicine, [facility] 132 [facility] [place] [address] Frank Finch MD [address] [place] [place] [address] 07/29/2023 3:00 PM EDT Office Visit General Internal Medicine [facility] 200 [facility] [place] [address] Rizwana Antunez MD 200 [facility] [place] [address] 08/08/2023 11:00 AM EDT Telemedicine Palliative Medicine, [facility] 400 [facility] 5th [place] [address] Radha Almazan PA-C 400 [place] [address] 08/14/2023 1:30 PM EDT Office Visit Cardiology, [facility] 132 [facility] [place] [address] Ni Kay PA-C [address] [place] [address] 12/02/2023 11:00 AM EDT Imaging Radiology, [facility] 25[address] [facility] [place] [address] 04/02/2024 1:00 PM EST Imaging Radiology [facility] [address] [facility] [place] [address] Scheduled Referrals Name Type Priority Associated Diagnoses Orde r Schedule ADULT/PEDS PSYCHOLOGY REFERRAL OP Referral Within 10 days (routine) IPF (idiopathic pulmonary fibrosis) (HCC) Chronic respiratory failure with hypoxia, on home oxygen therapy (HCC) Ordered: 07/09/2023 Health Maintenance Due Date Last Done Comments [...] pulmonary fibrosis) (HCC)- Primary Idiopathic pulmonary fibrosis Chronic respiratory failure with hypoxia, on home oxygen therapy (HCC) documented in this encounter Advance Directives Documents on File Type Date Recorded Patient Licensed Surveyor Expl anation POLST 05/24/2023 9:25 AM POLST [...] the patient have Health Care Power of Steel Plate Caulker? No Code Status History Code Status Date Activated Date Inactivated Comments Limited Code 11/26/2022 8:55 PM 12/04/2022 10:12 PM This order reflects the patients wishes and were consensually agreed upon. Question Answer Comments Discussion of Advance Directives occurred with: Patient Does the patient have a Living Will? No Does the patient have Health Care Power of Steel Plate Caulker? No Bag Valve Device? No Intubation? No Cardiac Compressions? Yes Defibrillation? Yes Synchronized Cardioversion? Yes External Pacemaker? Yes Cardiac Drugs? Yes Care Teams Autocad Draftsman Relationship Specialty Start Date End Date Rizwana Antunez MD [address] [place] [address] PCP - General Internal Medicine 03/28/22 documented as of this encounter
--- OUTSIDE RECORDS SUMMARY | 2023-09-27 14:25 | External Medical Summary | Summary of Care ---
Author Name Unknown Organization [facility] Address [address] [place] [address] Phone [phone] Care Team Providers Care Diet Technician Registered Name Role Phone Rizwana Antunez MD Primary Care Provider [phone] Reason for Visit * Reason Comments eRx-Medication Refill Encounter Details Date Type Department Care Team (Late st Contact Info) Description 07/12/2023 Refill General Internal Medicine [facility] [address] [place] [address] Rizwana Antunez MD [address] [place] [address] Type 2 diabetes mellitus with hemoglobin A1c goal of less than 7.0% ([facility]); Chronic respiratory failure with hypoxia, on home oxygen therapy ([facility]); IPF (idiopathic pulmonary fibrosis) ([facility]); 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 10.7 g 11 3 Active Losartan Potassium 50 MG Oral Tablet (Cozaar) Take 0.5 Tablets by mouth every evening. Restart 03/26/2023-has at home 0 4 Active Pirfenidone 801 MG Oral Tablet (Esbriet)Indication s:Chronic idiopathic pulmonary fibrosis (HCC),Chronic respiratory failure with hypoxia, on home oxygen therapy (HCC) Take 801 mg by mouth in the morning and 801 mg at noon and 801 mg before bedtime. one pill three times a day. 270 Tablet 5 4 08/05/19 24 Active Omeprazole 20 MG Oral Tablet Delayed ReleaseIndications: Gastroesophageal reflux disease without esophagitis Take 1 Tablet by mouth in the morning. Still taking. 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 30 Tablet 0 4 Active Jardiance 10 MG Oral Tablet (Empagliflozin)Arabella cations:Type 2 diabetes mellitus with hemoglobin A1c goal of less than 7.0% ([facility]),Chronic respiratory failure with hypoxia, on home oxygen therapy ([facility]),IPF (idiopathic pulmonary fibrosis) (HCC),long-term (current) use of systemic steroids TAKE 1 TABLET BY MOUTH EVERY DAY IN THE MORNING 30 Tablet 5 4 Active Empagliflozin 10 MG Oral Tablet (Jardiance)Indicati ons:Type 2 diabetes mellitus with hemoglobin A1c goal of less than 7.0% ([facility]),Chronic respiratory failure with hypoxia, on home oxygen therapy ([facility]),IPF (idiopathic pulmonary fibrosis) (HCC),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 90 Tablet 0 4 07/13/19 Discontinued Hospital, Clinic, or Other Facility Administered Medication Ordered Dose Route Frequency Start Date End Date Status Albuterol Sulfate (Proventil) (2.5 MG/3ML) 0.083% inhalation solution 2.5 mgIndications:IPF (idiopathic pulmonary fibrosis) (HCC) 2.5 mg NEBULIZER PRN 12/05/2022 12/05/2023 Active Benralizumab (Fasenra) prefilled syringe 30 mgIndications:Severe persistent asthma, unspecified whether complicated 30 mg SC [id number] 06/13/2023 12/24/2024 Active documented as of this encounter (statuses as of 07/13/2023) Active Problems Problem Noted Date Diagnosed Date [...] as of this encounter (statuses as of 07/13/2023) Resolved Problems Problem Noted Date Diagnosed Date Resolved Date Acute pulmonary edema 11/30/20222022 Bacteremia due to Staphylococcus epidermidis 3 12/10/2022 Multifocal pneumonia 11/26/2022 023 Severe persistent asthma with exacerbation 07/31/2022 12/10/2022 Severe obesity with body mas s index (BMI) of 35.0 to 39.9 with serious comorbidity 11/20/2021 documented as of this encounter (statuses as of 07/13/2023) Immunizations Name Administration Dates Next Due COVID-19 mRNA, LNP-s, No Pre serve, 2-Dose Series (Moderna) 04/26/2020,03/29/2020 COVID-19, LNP-s, No Preserve , Mir-sucrose, Ages 12+ ([employer]) 01/08/2022 COVID-19, mRNA, LNP-s, PF, B ooster, [...] encounter Miscellaneous Notes * Telephone Encounter - Tarik Huggins [facility] - 07/13/2023 6:27 AM EDTSigned Prescriptions: Disp Refills Jardiance 10 MG Oral Tablet (Empagliflozin)30 Tab*5 Sig: TAKE 1 TABLET BY MOUTH EVERY DAY IN THE MORNINGAuthorizing Provider: Lamonte ANTUNEZ User: TARIK UHGGINS documented in this encounter Plan of Treatment Upcoming Encounters Date Type Department Care Team (Late st Contact Info) Description 07/19/2023 12:00 PM EDT Therapy Psychology [facility] [address] [address] Daisy Servin, [facility] [address] [address] 07/25/2023 12:20 PM EDT Office Visit Pulmonary Medicine, [facility] [address] [facility] [place] [address] Frank Finch MD [address] [place] [address] 07/29/2023 3:00 PM EDT Office Visit General Internal Medicine [facility] [address] [facility] [place] [address] Rizwana Antunez MD [address] [place] [address] 08/08/2023 11:00 AM EDT Telemedicine Palliative Medicine, [facility] [address] [facility] 5th [place] [address] Radha Almazan PARoxanne [address] [place] [address] 08/14/2023 1:30 PM EDT Office Visit Cardiology, [facility] [address] [facility] [place] [address] Ni Kay PA-C [address] [place] [address] 12/02/2023 11:00 AM EDT Imaging Radiology, [place] [id number] [facility] [place], [place] [address] 04/02/2024 1:00 PM EST Imaging Radiology [facility] [facility] [address] [facility] [place] [address] Health Maintenance Due Date Last Done Comments Zoster Vaccines (2 of 3) 05/21/2014 03/26/2014 Depression Screening 05/04/2023 05/04/2022 Diabetic Eye Exam Discontinued 01/16/2019 Cologuard Discontinued 02/16/2022, 02/13/2022, 12/08/2021 Influenza Vaccine (FLU shot) Completed 12/24/2022, 12/12/2021 [...] A1c goal of less than 7.0% (HCC) Chronic respiratory failure with hypoxia, on home oxygen therapy (HCC) IPF (idiopathic pulmonary fibrosis) (HCC) Idiopathic pulmonary fibrosis long-term (current) use of systemic steroids documented in this encounter Advance Directives Documents on File Type Date Recorded Patient Tie Tape Machine Operator Expl anation POLST 05/24/2023 9:25 AM POLST [...] the patient have Health Care Power of Sawing And Assembly Supervisor? No Code Status History Code Status Date Activated Date Inactivated Comments Limited Code 11/26/2022 8:55 PM 12/04/2022 10:12 PM This order reflects the patients wishes and were consensually agreed upon. Question Answer Comments Discussion of Advance Directives occurred with: Patient Does the patient have a Living Will? No Does the patient have Health Care Power of Sawing And Assembly Supervisor? No Bag Valve Device? No Intubation? No Cardiac Compressions? Yes Defibrillation? Yes Synchronized Cardioversion? Yes External Pacemaker? Yes Cardiac Drugs? Yes Care Teams Diet Technician Registered Relationship Specialty Start Date End Date Rizwana Antunez MD [address] [place] [address] PCP - General Internal Medicine 03/28/22 documented as of this encounter
--- OUTSIDE RECORDS SUMMARY | 2023-09-27 14:25 | External Medical Summary | Summary of Care ---
Author Name Unknown Organization [facility] Address [address] [place] [address] Phone [phone] Care Team Providers Care User Acceptance Tester Name Role Phone Rizwana Antunez MD Primary Care Provider [phone] Reason for Visit * Reason Onset Date Comments Advice 07/11/2023 Re: Michael Encounter Details Date Type Department Care Team (Late st Contact Info) Description 07/11/2023 Telephone Pulmonary Medicine, [facility] [address] [facility] [place] [address] Services, Scheduling [address] [place] [address] Advice (Re: Michael) Allergies Active Allergy Reactions [...] hemoglobin A1c goal of less than 7.0% ([facility]),Elevated BUN,Dehydration Take 1 Tablet by mouth in [...] hemoglobin A1c goal of less than 7.0% ([facility]),Chronic respiratory failure with hypoxia, on home oxygen therapy (HCC),IPF (idiopathic pulmonary fibrosis) (HCC),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 Take 2 [...] hemoglobin A1c goal of less than 7.0% ([facility]),Dyslipidemia, goal LDL below 100 TAKE 1 TABLET [...] inhalation solution 2.5 mgIndications:IPF (idiopathic pulmonary fibrosis) ([facility]) 2.5 mg NEBULIZER PRN 12/05/2022 12/05/2023 Active Benralizumab (Fasenra) prefilled syringe 30 mgIndications:Severe persistent asthma, unspecified whether complicated 30 mg SC [id number] 06/13/2023 12/24/2024 Active documented as of this [...] Description 07/19/2023 12:00 PM EDT Therapy Psychology [facility] [address] [address] Daisy Servin, LANDSCAPE ARTIST [address] [address] 07/25/2023 12:20 PM EDT Office Visit Pulmonary Medicine, [facility] [address] [address] Frank Finch MD [address] [place] [address] 07/29/2023 3:00 PM EDT Office Visit General Internal Medicine [facility] [address] [place] [address] Rizwana Antunez MD [address] [place] [address] 08/08/2023 11:00 AM EDT Telemedicine Palliative Medicine, [facility] [address] [facility] 5th [place] [address] Radha Almazan PA-C [address] [place] [address] 08/14/2023 1:30 PM EDT Office Visit Cardiology, [facility] [address] [facility] [place] [address] Ni Kay PA-C [address] [place] [address] 12/02/2023 11:00 AM EDT Imaging Radiology, [facility] [address] [facility] [place] [address] 04/02/2024 1:00 PM EST Imaging Radiology [facility] [address] [facility] [address] [facility] [place] [address] Health Maintenance Due Date Last Done Comments [...] Documents on File Type Date Recorded 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 No Code Status History Code Status Date Activated Date Inactivated Comments Limited Code 11/26/2022 8:55 PM 12/04/2022 10:12 PM This order reflects the patients wishes and were consensually agreed upon. Question Answer Comments Discussion of Advance Directives occurred with: Patient Does the patient have a Living Will? No Does the patient have Health Care Power of Administrative Assistant Data Entry? No Bag Valve Device? No Intubation? No Cardiac Compressions? Yes Defibrillation? Yes Synchronized Cardioversion? Yes External Pacemaker? Yes Cardiac Drugs? Yes Care Teams User Acceptance Tester Relationship Specialty Start Date End Date Rizwana Antunez MD [address] [place] [address] PCP - General Internal Medicine 03/28/22 documented as of this encounter
--- OUTSIDE RECORDS SUMMARY | 2023-09-27 14:25 | External Medical Summary | Summary of Care ---
Author Name Unknown Organization [facility] Address [address] [place] [address] Phone [phone] Care Team Providers Care Joint Cutter Name Role Phone Rizwana Antunez MD Primary Care Provider [phone] Reason for Visit * Reason Comments Psychological Evaluation * Evaluate & Treat - Unlimited Visits (Within 10 days (routine)) - Pending Review Specialty Diagnoses / Procedures Referred By Kyle mike Referred To Contact Psychology Diagnoses IPF (idiopathic pulmonary fibrosis) (HCC) Chronic respiratory failure with hypoxia, on home oxygen therapy (HCC) Radha Almazan, PAJose ManuelC [address] [place] [address] Referral ID Status Reason Start Date Expiration Date Visits Requested Visits Authorized [id number] Pending Review Specialty Services Required 07/09/[phone] Encounter Details Date Type Department Care Team (Late st Contact Info) Description 07/19/2023 12:00 PM EDT Therapy Psychology [facility] [address] [place] [address] Daisy Servin, PANELBOARD OPERATOR [address] [place] [address] Adjustment disorder with mixed anxiety and depressed mood* Allergies Active Allergy Reactions Criticality Noted Date Comments Lisinopril Cough 05/04/2022 documented as of this encounter (statuses as of 07/19/2023) Medications Medication Sig Dispensed Refills Start Date [...] hemoglobin A1c goal of less than 7.0% ([facility]),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 TAKE 1 TABLET BY MOUTH EVERY DAY IN THE MORNING 30 Tablet 5 07/13/2023 Active Hospital, Clinic, or Other Facility Administered Medication Ordered Dose Route Frequency Start Date End Date Status Albuterol Sulfate (Proventil) (2.5 MG/3ML) 0.083% inhalation solution 2.5 mgIndications:IPF (idiopathic pulmonary fibrosis) (HCC) 2.5 mg NEBULIZER PRN 12/05/2022 12/05/2023 Active Benralizumab (Fasenra) prefilled syringe 30 mgIndications:Severe persistent asthma, unspecified whether complicated 30 mg SC [id number] 06/13/2023 12/24/2024 Active documented as of this encounter (statuses as of 07/19/2023) Active Problems Problem Noted Date Diagnosed Date [...] as of this encounter (statuses as of 07/19/2023) Resolved Problems Problem Noted Date Diagnosed Date Resolved Date Acute pulmonary edema 11/30/20222022 Bacteremia due to Staphylococcus epidermidis 3 12/10/2022 Multifocal pneumonia 11/26/2022 023 Severe persistent asthma with exacerbation 07/31/2022 12/10/2022 Severe obesity with body mas s index (BMI) of 35.0 to 39.9 with serious comorbidity 11/20/2021 documented as of this encounter (statuses as of 07/19/2023) Immunizations Name Administration Dates Next Due COVID-19 mRNA, LNP-s, No Pre serve, 2-Dose Series (Moderna) 04/26/2020,03/29/2020 COVID-19, LNP-s, No Preserve , Mir-sucrose, Ages 12+ (Guaranteach) 01/08/2022 COVID-19, mRNA, LNP-s, PF, B ooster, [...] this encounter Progress Notes * Daisy Servin, PANELBOARD OPERATOR - 07/19/2023 12:02 PM EDT [facility] Evaluation Psychology [address] [place] [address] This patient is seen in-person with provider in-clinic Timing assessment: This is the initial onset of the assessed illness: This is first visit for this Provider Face to Face Start Time: 12:00 pm Face to Face Stop Time: 1:00 pm Referral Source: PCP: Rizwana Antunez MD Risk Assessment: Completed History of Present Illness: Nicolasa Gomez is a 73 year old female who was referred for assessmentand possible treatment of Depression ; behavioral health provider reviewed chart and coordinated care for this evaluation via the following methods: cc chart Nicolasa Gomez was identified by first and last name and date of . Primary language of patient was Algerian. Nicolasa Gomez arrived on time for her scheduled appointment. She was seen by herself throughout the duration of the evaluation. Informed consent, limits of confidentiality, the consultative nature of the first visit, and documentation in the electronic record were reviewed. Presenting Symptoms: Nicolasa comes to appointment sharing history of Pulmonary fibrosis giving time line of diagnosis and progressive changes that have occurred since diagnosis in 2019. She shares recent visit with Palliative Physician with desire to focus on quality of life, not quantity of life. She shares frustrationswith the physical limitations of the disease which has negatively impacted her mood. Symptoms: Little interest or pleasure in doing things, feeling down, depressed and hopeless, feeling tire, little energy, appetite disturbance, feeling bad about self at times, trouble concentrating at times. Worrying too much about different things, becoming easily annoyed. Onset: within last year as limitations have increased. Frequency of symptoms: several days to nearly everyday Additional Factors to Consider in Treatment: Exercise: none Eating behaviors/diet: been stable, had lost weight in past but stable now Sleep: Good, no complaints Medication Adherence: Very good, rarely misses doses Psychiatry Review of Systems: PSYCHIATRY REVIEW OF SYSTEMS Pain screening: Is patient experiencing any pain related to today's visit? No Nutritional Screening: No concerns Past Psychiatric History: Outpatient Treatment: Counseling in College Inpatient Treatment: None Self injury and suicide attempts: None Prior psychotropic medical trials: None History of trauma, abuse, exploitation or trafficking: Partial hysterectomy, PPD , Loss of Mom as ayoung Mom which was unexpected, Mom very suddenly, Dad suddenly in 1996 Substance Abuse History: Alcohol occasional, social use Caffeine coffee 2 cups/day Family Psychiatric History: Psychiatric diagnoses: none Attempted suicides/ by suicide: Sister did have one attempt in college but nothing since Drug and alcohol abuse: None Personal, Family and Social History: Living situation: 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, 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, 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, 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 Mom History: Patient has never served in any branch of the Legal History: None Intellectual Disability Diagnosis: No Activities of Daily Living: Good Additional community service involvement: None Leisure and recreational interest: Book groups and reading Latter Day/Spiritual Orientation: Tenriism-Islam when can, not recently Mental Status Evaluation: Appearance: Well groomed, casually dressed, appearing stated age Abnormal Movement: No abnormal movements noted Behavior: Calm, cooperative and appropriate Speech and Language: Normal in rate, rhythm, volume and tone Mood: Mood congruent Affect: Appropriate to content and mood-congruent Thought Process: Logical, linear and goal directed Thought Content: No abnormal thought content Hallucinations: No perceptual disturbances Suicidality: No suicidal ideations, intent, method or plan or passive wish Homicidality: No homicidal ideations, intent, plan or target Orientation: Oriented to self, time, place and circumstances Attention: Intact Recent and Remote memory:Intact Insight: Good Judgement: Good Fund of Knowledge: Good Assessment/Formulation: Patient has been experiencing symptoms of depression and anxiety. Patient is seeking therapy services for anxiety and depression and has identified therapy goals of managing emotions and moods. Nicolasa reports having progressive lung disease which she has been dealing with since diagnosis in 2019. She reports as disease has progressed the physical restrictions resulting fromthe disease have increased. She reports feelings of loss and frustration and varying moods related to these physical limitations. We completed assessment this date and Nicolasa pursued continuing counseling and a follow up appointment was scheduled. Relevant Stressors: current stressors include: health Diagnosis: ICD-10-CM 1. Adjustment disorder with mixed anxiety and depressed mood F43.23 Plan: Therapy: Patient will receive a brief course of behavioral health treatment with [facility]. Community Resources:no Medication Management: PCP Return in:two weeks Scheduling Preference for Appointments: In person Adult [facility] Therapy Treatment Plan Treatment plan was developed on 07/19/23, treatment will continue to focus on goals below; Treatment update will occur when clinically indicated or by 01/14/2024. Reasons for deferring a goal or the objectives leading toward or related to a goal are documented in the progress note. Treatment plan signature page signed by patient/legal guardian and sent for scanning? Patient received copy of treatment plan: Yes, sent via [facility] Patient's strengths and facilitating factors to care: Seeking help, Manages multiple demands in life, Has a purpose in life, Has hobbies, Good support system, Cultural/spiritual/islam and community involvement, and Cooperative Individuals responsible for carrying out plan: Patient Expected family or significant other involvement: Offer Support Treatment Barriers: none identified Crisis planning: What I can do if I ever experience a crisis (much worse symptoms, severe distress or thoughts of self-harm): Talking to loved one or friend or trusted person and Prayer/Kesha People I can call in the event of a crisis: Spouse/partner/significant other: David and Friend: Additional resources I can utilize if the previous steps are ineffective (e.g: ED, hotlines): Suicide and Crisis Lifeline - 98 and [facility] Crisis Contact [phone] Estimated frequency of treatment Estimated duration Estimated Completion Type of Service Interventions every other week 8-11 sessions 6 months Individual Cognitive Behavioral Therapy (CBT), which includes psychoeducation, cognitive restructuring, relaxation/diaphragmatic breathing, problem-solving, and behavioral activation and Acceptance & Commitment Therapy (ACT), including acceptance, cognitive defusion, being present, values, and committed action Patient was asked to rate how big of a problem each target symptom is, from 0 (not at all a problem) to 10 (a huge problem) Patient identified Goals/Needs Objective/Discharge Criteria Need 1: Nicolasa will be provided education about depression and anxiety and coping skills. Nicolasa willbe able to identify and implement two coping skills by review. , Need 2: Nicolasa will be given opportunity to process thoughts and feelings (related to chronic healthcondition) in session. Nicolasa will be able to identify strengths, values, self care tasks to promotesense of well being and meaning related to chronic health condition. Please choose a method to track patient's improvement based on clinical assessment: PHQ-9 Adult Data RO-7 Data [place] Suicide Screen Data Discharge Discussed with patient: Patient continues to need treatment Is this the patients' initial treatment plan? Yes Treatment options and recommendations/interventions reviewed. Patient and/or caregiver verbalize understanding and agrees to plan with explanation of risks/benefits, aware of how to contact clinic with questions. documented in this encounter Plan of Treatment Upcoming Encounters Date Type Department Care Team (Late st Contact Info) Description 07/25/2023 12:20 PM EDT Office Visit Pulmonary Medicine, [facility] [address] [facility] [place] [address] Frank Finch MD [address] [place] [address] 07/29/2023 3:00 PM EDT Office Visit General Internal Medicine [facility] [address] [facility] [place] [place] [address] Rizwana Antunez MD 200 [facility] [place] [address] 08/07/2023 2:00 PM EDT Therapy Psychology [facility] 132 [facility] [place] [address] Daisy Servin, [facility] [address] [place] [address] 08/08/2023 11:00 AM EDT Telemedicine Palliative Medicine, [facility] [address] [facility] 5th Floor [place] [address] Radha Almazan PA-C [address] [place] [address] 08/14/2023 1:30 PM EDT Office Visit Cardiology, [facility] [address] [facility] [place] [address] Ni Kay PA-C [address] [place] [address] 12/02/2023 11:00 AM EDT [address]iology, [address] [address] 04/02/2024 1:00 PM EST Imaging Radiology [facility] [address] [facility] [place] [address] Scheduled Referrals Name Type Priority Associated Diagnoses [...] on File Type Date Recorded Patient Manager Style Expl anation POLST 05/24/2023 9:25 AM POLST [...] the patient have Health Care Power of Dish Machine Operator? No Code Status History Code Status Date Activated Date Inactivated Comments Limited Code 11/26/2022 8:55 PM 12/04/2022 10:12 PM This order reflects the patients wishes and were consensually agreed upon. Question Answer Comments Discussion of Advance Directives occurred with: Patient Does the patient have a Living Will? No Does the patient have Health Care Power of Dish Machine Operator? No Bag Valve Device? No Intubation? No Cardiac Compressions? Yes Defibrillation? Yes Synchronized Cardioversion? Yes External Pacemaker? Yes Cardiac Drugs? Yes Care Teams Joint Cutter Relationship Specialty Start Date End Date Rizwana Antunez MD [address] [place] [address] PCP - General Internal Medicine 03/28/22 documented as of this encounter
--- OUTSIDE RECORDS SUMMARY | 2023-09-27 14:25 | External Medical Summary ---
Author Name Unknown Address Unknown Organization [id number]:[facility] - [address] [facility] [address] [facility] [address] Laboratory Report Ordering Provider Test Date Status GILBERTO DELCID 07/25/2023 14:25:08 Final Observation Date Value Abnormality Reference (Units ) Status HbA1C 07/25/2023 14:25:08 7.8 Above high normal 4. 0-5.6 (%) Final The use of HbA1c to monitor glycemic status is based on normal hemoglobin and HbA composition. This test should not be used in patients with abnormal hemoglobin that affects the half life of the red blood cell or the in vivo glycation rates. Glucose, estimated average 07/25/2023 14:25:08 177 Above high normal <126 (mg/dL) Kyle martinez Performing Location [facility] - [address] [facility] [address]
--- OUTSIDE RECORDS SUMMARY | 2023-09-27 14:25 | External Medical Summary | Summary of Care ---
Author Name Unknown Organization [facility] Address [address] [place] [address] Phone [phone] Care Team Providers Care Voice Coach Name Role Phone Rizwana Antunez MD Primary Care Provider Reason for Visit * Reason Onset Date Comments Advice 07/11/2023 Re: Michael Encounter Details Date Type Department Care Team (Late st Contact Info) Description 07/11/2023 Telephone Pulmonary Medicine, [facility] [address] [facility] [place] [address] Services, Scheduling [address] [place] [address] Advice (Re: Michael) Allergies Active Allergy Reactions [...] hemoglobin A1c goal of less than 7.0% ([facility]),Elevated BUN,Dehydration Take 1 Tablet by mouth in [...] hemoglobin A1c goal of less than 7.0% ([facility]),Chronic respiratory failure with hypoxia, on home oxygen therapy (HCC),IPF (idiopathic pulmonary fibrosis) (HCC),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 Take 2 [...] hemoglobin A1c goal of less than 7.0% ([facility]),Dyslipidemia, goal LDL below 100 TAKE 1 TABLET [...] inhalation solution 2.5 mgIndications:IPF (idiopathic pulmonary fibrosis) ([facility]) 2.5 mg NEBULIZER PRN 12/05/2022 12/05/2023 Active Benralizumab (Fasenra) prefilled syringe 30 mgIndications:Severe persistent asthma, unspecified whether complicated 30 mg SC [id number] 06/13/2023 12/24/2024 Active documented as of this [...] Pulmonary Medicine, [facility] 132 [facility] [place] [address] Frank Finch MD [address] [place] [address] [place] [address] 07/29/2023 3:00 PM EDT Office Visit General Internal Medicine [facility] [place] [address] [facility] [place] [address] Rizwana Antunez MD [address] [facility] [place] [address] 08/08/2023 11:00 AM EDT Telemedicine Palliative Medicine, [address] [place] [address] Radha Almazan PA-C [address] [place] [address] 08/14/2023 1:30 PM EDT Office Visit Cardiology, [facility] 132 [facility] [place] [address] Ni Kay PA-C [address] [place] [address] 12/02/2023 11:00 AM EDT [address] Radiology, [address] [address] 04/02/2024 1:00 PM EST Imaging Radiology [facility] [address] [facility] [place] [address] Health Maintenance Due Date Last Done Comments [...] Documents on File Type Date Recorded 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 No Code Status History Code Status Date Activated Date Inactivated Comments Limited Code 11/26/2022 8:55 PM 12/04/2022 10:12 PM This order reflects the patients wishes and were consensually agreed upon. Question Answer Comments Discussion of Advance Directives occurred with: Patient Does the patient have a Living Will? No Does the patient have Health Care Power of Safety Sealer? No Bag Valve Device? No Intubation? No Cardiac Compressions? Yes Defibrillation? Yes Synchronized Cardioversion? Yes External Pacemaker? Yes Cardiac Drugs? Yes Care Teams Voice Coach Relationship Specialty Start Date End Date Rizwana Antunez MD [address] [place] [id number] PCP - General Internal Medicine 03/28/22 documented as of this encounter
--- OUTSIDE RECORDS SUMMARY | 2023-09-27 14:25 | External Medical Summary | Summary of Care ---
Author Name Unknown Organization [facility] Address [address] [place] [address] Phone [phone] Care Team Providers Care Adjunct Physical Education Instructor Name Role Phone Rizwana Antunez MD Primary Care Provider Reason for Visit * Reason Comments eRx-Medication Refill Encounter Details Date Type Department Care Team (Late st Contact Info) Description 07/23/2023 Refill General Internal Medicine [facility] 200 [facility] [place] [address] Izzy Case MD 200 [facility] [place] [address] Allergies Active Allergy Reactions Criticality Noted Date Comments Lisinopril Cough 05/04/2022 documented as of this encounter (statuses as of 07/23/2023) Medications Medication Sig Dispensed Refills Start Date [...] A1c goal of less than 7.0% ([facility]),Elevated BUN,Dehydration Take 1 Tablet by mouth in [...] Oral Tablet Extended Release 24 Hour (Glucophage XR)Indications: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 respiratory failure with hypoxia, on home oxygen therapy ([facility]),IPF (idiopathic pulmonary fibrosis) ([facility]),Type 2 diabetes mellitus with hemoglobin A1c goal of less than 7.0% ([facility]),half-way (current) use of systemic steroids Take 2 [...] A1c goal of less than 7.0% ([facility]),Dyslipidemia, goal LDL below 100 TAKE 1 TABLET BY MOUTH EVERY DAY IN THE MORNING 90 Tablet 1 4 Active Jardiance 10 MG Oral Tablet (Empagliflozin)Arabella cations:Type 2 diabetes mellitus with hemoglobin A1c goal of less than 7.0% ([facility]),Chronic respiratory failure with hypoxia, on home oxygen therapy ([facility]),IPF (idiopathic pulmonary fibrosis) ([facility]),half-way (current) use of systemic steroids TAKE 1 TABLET BY MOUTH EVERY DAY IN THE MORNING 30 Tablet 5 4 Active predniSONE 20 MG Oral Tablet (Deltasone) TAKE 1 TABLET BY MOUTH EVERY DAY IN THE MORNING 30 Tablet 0 4 Active predniSONE 20 MG Oral Tablet (Deltasone) Take 1 Tablet by mouth in the morning. 30 Tablet 0 4 07/23/19 24 Discontinued Hospital, Clinic, or Other Facility Administered Medication Ordered Dose Route Frequency Start Date End Date Status Albuterol Sulfate (Proventil) (2.5 MG/3ML) 0.083% inhalation solution 2.5 mgIndications:IPF (idiopathic pulmonary fibrosis) ([facility]) 2.5 mg NEBULIZER PRN 12/05/2022 12/05/2023 Active Benralizumab (Fasenra) prefilled syringe 30 mgIndications:Severe persistent asthma, unspecified whether complicated 30 mg SC [id number] 06/13/2023 12/24/2024 Active documented as of this encounter (statuses as of 07/23/2023) Active Problems Problem Noted Date Diagnosed Date [...] as of this encounter (statuses as of 07/23/2023) Resolved Problems Problem Noted Date Diagnosed Date Resolved Date Acute pulmonary edema 11/30/20222022 Bacteremia due to Staphylococcus epidermidis 3 12/10/2022 Multifocal pneumonia 11/26/2022 023 Severe persistent asthma with exacerbation 07/31/2022 12/10/2022 Severe obesity with body mas s index (BMI) of 35.0 to 39.9 with serious comorbidity 11/20/2021 documented as of this encounter (statuses as of 07/23/2023) Immunizations Name Administration Dates Next Due COVID-19 [...] Telephone Encounter - Frank Dhaliwal MD - 07/23/2023 4:10 PM EDT Signed Prescriptions: Disp Refills predniSONE 20 MG Oral Tablet (Deltasone) 30 Tab*0 Sig: TAKE 1 TABLET BY MOUTH EVERY DAY IN THE MORNING Authorizing Provider: FRANK DHALIWAL * Telephone Encounter - Rizwana Antunez MD - 07/23/2023 3:10 PM EDTPending Prescriptions: Disp Refills predniSONE 20 MG Oral Tablet [Pharmacy Med*30 Tab*0 Sig: TAKE 1 TABLET BY MOUTH EVERY DAY IN THE MORNING * Telephone Encounter - Jena Rojo LPN - 07/23/2023 2:26 PM EDT Pending Prescriptions: Disp Refills predniSONE 20 MG Oral Tablet [Pharmacy Med*30 Tab*0 Sig: TAKE 1 TABLET BY MOUTH EVERY DAY IN THE MORNING * Telephone Encounter - Jena Rojo LPN - 07/23/2023 2:26 PM EDT Pending Prescriptions: Disp Refills predniSONE 20 MG Oral Tablet (Deltasone) *30 Tab*0 Sig: TAKE 1 TABLET BY MOUTH EVERY DAY IN THE MORNING Last Visit: 05/15/2023 (in office), Visit date not found (telemedicine) Next Visit: 07/29/2023 Last date the medication was ordered: 06/26/2023 Patient Active Problem List Diagnosis Code HTN, goal below 130/80 I10 Type 2 diabetes mellitus with hemoglobin A1c goal of less than 7.0% ([facility]) E11.9 IPF (idiopathic pulmonary fibrosis) ([facility]) J84.112 Encounter for screening mammogram for breast cancer Z12.31 Screening for osteoporosis Z13.820 Menopause Z78.0 Screen for colon cancer Z12.11 Nocturnal hypoxia G47.34 Chronic respiratory failure with hypoxia, on home oxygen therapy ([facility]) J96.11, Z99.81 Gastroesophageal reflux disease K21.9 Obesity (BMI 30.0-34.9) E66.9 Environmental and seasonal allergies J30.89 Dependence on continuous supplemental oxygen Z99.81 Interstitial lung disease ([facility]) J84.9 Acute on chronic respiratory failure with hypoxia ([facility]) J96.21 Elevated IgE level R76.8 Right foot drop M21.371 Pulmonary hypertension ([facility]) I27.20 Asthma, severe persistent J45.50 Dyspnea on minimal exertion R06.09 Palliative care encounter Z51.5 Goals of care, counseling/discussion Z71.89 Labs: Lab Results Component Value Date/Time CREATININE - [facility] 0.9 05/11/2023 03:11 AM CREATININE, RANDOM URINE - [facility] 65 03/26/2023 01:12 PM CREATININE-OUTSIDE LAB 0.69 11/13/2022 12:00 AM Lab Results Component Value Date/Time POTASSIUM - [facility] 3.9 05/11/2023 03:11 AM POTASSIUM-OUTSIDE LAB 4.0 11/13/2022 12:00 AM Lab Results Component Value Date/Time TSH - [facility] 2.37 01/29/2022 10:36 AM Lab Results Component Value Date/Time LDL (CALCULATED)-OUTSIDE LAB 94 10/24/2020 12:00 AM LDL CHOLESTEROL (CALCULATED) - [facility] 77 09/20/2022 09:31 AM LDL CHOLESTEROL (CALCULATED) - [facility] 101 01/29/2022 10:36 AM LDL CHOLESTEROL (DIRECT MEASURE) - [facility] 75 05/03/2022 10:10 AM LDL CHOLESTEROL (DIRECT MEASURE) - [facility] 102 01/29/2022 10:36 AM Lab Results Component Value Date/Time ALT - [facility] 10 05/08/2023 03:10 PM Hemoglobin AIC Results: Lab Results Component Value Date/Time HEMOGLOBIN A1C - [facility] 7.4 (H) 03/22/2023 04:36 PM HEMOGLOBIN A1C - [facility] 7.1 (H) 11/27/2022 05:37 AM HEMOGLOBIN A1C - [facility] 6.7 (H) 05/03/2022 10:10 AM * Telephone Encounter - Horacio Sanchez - 07/23/2023 4:20 AM EDTPending Prescriptions: Disp Refills predniSONE 20 MG Oral Tablet [Pharmacy Med*30 Tab*0 Sig: TAKE 1 TABLET BY MOUTH EVERY DAY IN THE MORNING documented in this encounter Plan of Treatment Upcoming Encounters Date Type Department Care Team (Late st Contact Info) Description 07/25/2023 12:20 PM EDT Office Visit Pulmonary Medicine, [facility] [address] [place] [address] Frank Dhaliwal MD [address] [place] [address] 07/29/2023 3:00 PM EDT Office Visit General Internal Medicine [facility] 200 [facility] [place] [address] Rizwana Antunez MD 200 [facility] [place], [place] [address] 08/07/2023 2:00 PM EDT Therapy Psychology [facility] 132 [facility] [place] [address] Daisy Servin, [facility] 132 [facility] [place] [address] 08/08/2023 11:00 AM EDT Telemedicine Palliative Medicine, [facility] [address] [facility] 5th [place] [address] Radha Almazan PARoxanne [address] [place] [address] 08/14/2023 1:30 PM EDT Office Visit Cardiology, [facility] 132 [facility] [place] [address] Ni Kay PA-C [address] [place] [address] 12/02/2023 11:00 AM EDT Imaging Radiology, [facility] [address] [facility] [place], [place] [address] 04/02/2024 1:00 PM EST Imaging Radiology [facility] 132 [facility] [place] [address] Health Maintenance Due Date Last Done Comments [...] Documents on File Type Date Recorded Patient Inseam Leveler Expl anation POLST 05/24/2023 9:25 AM POLST [...] the patient have Health Care Power of Testing Specialist? No Code Status History Code Status Date Activated Date Inactivated Comments Limited Code 11/26/2022 8:55 PM 12/04/2022 10:12 PM This order reflects the patients wishes and were consensually agreed upon. Question Answer Comments Discussion of Advance Directives occurred with: Patient Does the patient have a Living Will? No Does the patient have Health Care Power of Testing Specialist? No Bag Valve Device? No Intubation? No Cardiac Compressions? Yes Defibrillation? Yes Synchronized Cardioversion? Yes External Pacemaker? Yes Cardiac Drugs? Yes Care Teams Adjunct Physical Education Instructor Relationship Specialty Start Date End Date Rizwana Antunez MD [address] [facility] [place] [address] PCP - General Internal Medicine 03/28/22 documented as of this encounter
--- OUTSIDE RECORDS SUMMARY | 2023-09-27 14:26 | External Medical Summary ---
Author Name Unknown Address Unknown Organization K01[place] [place] [address] [place] [address] Laboratory Report Ordering Provider Test Date Status GILBERTO DELCID 05/24/2023 10:03:41 Final Observation Date Value Abnormality Reference (Units ) Status Iron 05/24/2023 10:03:41 118 33-151 (ug /dL) Final Iron-binding capacity 05/24/2023 10:03:41 284 250-425 (ug/dL) Final Transferrin Sat % 05/24/2023 10:03:41 42 15 -55 (%) Final Performing Location [facility] [place] [address] [facility] [address]
--- OUTSIDE RECORDS SUMMARY | 2023-09-27 14:26 | External Medical Summary | Summary of Care ---
Author Name Unknown Organization [facility] Address [address] [place] [place] [place] [address] Phone [phone] Care Team Providers Care Engine Mechanic Name Role Phone Rizwana Antunez MD Primary Care Provider [phone] Reason for Visit * Reason Onset Date Comments Hospital Follow-Up 05/11/2023 Pt discharged 05/11/23 needs called with a follow-up Appointment w/ Pulmonary. Office is closed at this time. Call patient at home with the appointment. Encounter Details Date Type Department Care Team (Late st Contact Info) Description 05/11/2023 Telephone Access [facility], [address] *DO NOT REMOVE THIS DEPARTMENT* [place] [phone] Frank Finch MD [address] [facility] [place] [address] Hospital Follow-Up (Pt discharged 05/11/23 n... Allergies Active Allergy Reactions Criticality Noted Date Comments Lisinopril Cough 05/04/2022 documented as of this encounter (statuses as of 05/13/2023) Medications Medication Sig Dispensed Refills Start Date End Date Status Atorvastatin Calcium 10 MG Oral Tablet (Lipitor)Indications :Type 2 diabetes mellitus with hemoglobin A1c goal of less than 7.0% (HCC),Dyslipidemia, goal LDL below 100 TAKE 1 TABLET BY MOUTH IN THE MORNING. 90 Tablet 3 07/07/2022 Active Ipratropium-Albutero l 0.5-2.5 (3) MG/3ML Inhalation [...] of less than 7.0% ([facility]),Elevated BUN,Dehydration Take 1 Tablet by mouth [...] hosp DC 1 Each 0 01/10/2023 Active Breztri Aerosphere 160-9-4.8 MCG/ACT Inhalation Aerosol (Budeson-Glycopyrrol -Formoterol) Inhale 2 Puffs by mouth in the morning and 2 Puffs in the evening. 10.7 g 11 01/16/2023 Active Omeprazole 20 MG Oral Tablet Delayed Release Take 1 Tablet by mouth in the morning. 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 (Restart 1 tab 01/18/2023) inc 2 tabs 01/30/2023, inc 3 tabs 03/26/2023 60 Tablet 0 03/26/2023 Active Losartan Potassium 50 MG Oral Tablet (Cozaar) Take 0.5 Tablets by mouth every evening. Restart 03/26/2023-has at home 0 03/26/2023 Active Empagliflozin 10 MG Oral Tablet (Jardiance)Indicatio ns:Type 2 diabetes mellitus with hemoglobin A1c goal of less than 7.0% ([facility]),Chronic respiratory failure with hypoxia, on home oxygen therapy ([facility]),IPF (idiopathic pulmonary fibrosis) ([facility]),correction (current) use of systemic steroids Take 1 Tablet by mouth in the morning. 90 Tablet 0 04/16/2023 Active Pirfenidone 801 MG Oral Tablet (Esbriet)Indications :Chronic idiopathic pulmonary fibrosis ([facility]),Chronic respiratory failure with hypoxia, on home oxygen therapy ([facility]) Take 801 mg by mouth in the morning and 801 mg at noon and 801 mg before bedtime. one pill three times a day. 270 Tablet 5 05/07/2023 Active predniSONE 20 MG Oral Tablet (Deltasone) Take 1 Tablet by mouth in the morning. 30 Tablet 0 05/11/2023 Active Hospital, Clinic, or Other Facility Administered Medication Ordered Dose Route Frequency Start Date End Date Status Albuterol Sulfate (Proventil) (2.5 MG/3ML) 0.083% inhalation solution 2.5 mgIndications:IPF (idiopathic pulmonary fibrosis) ([facility]) 2.5 mg NEBULIZER PRN 12/05/2022 12/05/2023 Active documented as of this encounter (statuses as of 05/13/2023) Active Problems Problem Noted Date Diagnosed Date [...] as of this encounter (statuses as of 05/13/2023) Resolved Problems Problem Noted Date Diagnosed Date Resolved Date Acute pulmonary edema 11/30/20222022 Bacteremia due to Staphylococcus epidermidis 3 12/10/2022 Multifocal pneumonia 11/26/2022 023 Severe persistent asthma with exacerbation 07/31/2022 12/10/2022 Severe obesity with body mas s index (BMI) of 35.0 to 39.9 with serious comorbidity 11/20/2021 documented as of this encounter (statuses as of 05/13/2023) Immunizations Name Administration Dates Next Due COVID-19 mRNA, LNP-s, No Pre serve, 2-Dose Series (Moderna) 04/26/2020,03/29/2020 COVID-19, LNP-s, No Preserve , Mir-sucrose, Ages 12+ (MeetDoctor) 01/08/2022 COVID-19, mRNA, LNP-s, PF, B ooster, [...] encounter Miscellaneous Notes * Telephone Encounter - Gladis Kelly OSA - 05/13/2023 11:09 AM EST Patient is scheduled and aware of the date and time * Telephone Encounter - Gabriela Cornell NA/UDC - 05/11/2023 9:41 AM EST Pt discharged 05/11/23 needs called with a follow-up Appointment w/ Pulmonary. Office is closed at this time. Call patient at home with the appointment. documented in this encounter Plan of Treatment Upcoming Encounters Date Type Department Care Team (Late st Contact Info) Description 05/14/2023 9:00 AM EST PulmDiagnostic Pulmonary Function Lab, [facility] 132 [facility] [place] [address] [place] 132 [facility] [place] [address] 05/15/2023 4:00 PM EST Office Visit General Internal Medicine [facility] [address] [facility] [place] [address] Rizwana Antunez MD [address] [facility] [place] [address] 05/24/2023 10:20 AM EDT Office Visit Pulmonary Medicine, [facility] 132 [facility] [place] [address] Frank Finch MD [address] [place] [address] 06/13/2023 1:00 PM EDT Nurse Only Pulmonary Medicine, [facility] 132 [facility] [place] [address] Gw, Nurse Pulmonary [facility] [place] [address] 06/20/2023 10:00 AM EDT Laboratory Laboratory [facility] [address] [facility] [place] [id number] Denzel Gunn [facility] [address] [place] [address] 06/25/2023 1:20 PM EDT Office Visit General Internal Medicine [facility] [address] [place] [address] Rizwana Antunez MD [address] [place] [address] 07/29/2023 10:00 AM EDT Imaging Radiology [address] 132 [facility] [place] [address] 08/14/2023 1:30 PM EDT Office Visit Cardiology, [facility] 132 [facility] [place] [address] Ni Kay PA-C [address] [place] [address] [place] [address] 12/02/2023 11:00 AM EDT Imaging Radiology, [facility] [address] [place] [address] 04/02/2024 1:00 PM EST Imaging Radiology [address] 132 [facility] [place] [address] Health Maintenance Due Date Last Done Comments [...] filedocumented as of this encounter Advance Directives Latest Code Status on File Code Status Date Activated Date Inactivated Comments Full Code 05/08/2023 8:20 PM 05/11/2023 6:30 PM This o rder reflects the patients wishes and were consensually agreed upon. Question Answer Comments Discussion of Advance Directives occurred with: Patient Does the patient have a Living Will? No Does the patient have Health Care Power of Necktie Stitcher? No Code Status History Code Status Date Activated Date Inactivated Comments Limited Code 11/26/2022 8:55 PM 12/04/2022 10:12 PM This order reflects the patients wishes and were consensually agreed upon. Question Answer Comments Discussion of Advance Directives occurred with: Patient Does the patient have a Living Will? No Does the patient have Health Care Power of Necktie Stitcher? No Bag Valve Device? No Intubation? No Cardiac Compressions? Yes Defibrillation? Yes Synchronized Cardioversion? Yes External Pacemaker? Yes Cardiac Drugs? Yes Care Teams Engine Mechanic Relationship Specialty Start Date End Date Rizwana Antunez MD [address] [facility] [place] [address] PCP - General Internal Medicine 03/28/22 documented as of this encounter
--- OUTSIDE RECORDS SUMMARY | 2023-09-27 14:26 | External Medical Summary ---
Author Name Unknown Address Unknown Organization K0G[facility] [address] [place] [address] Laboratory Report Ordering Provider Test Date Status GILBERTO DELCID 05/24/2023 10:03:41 Final Observation Date Value Abnormality Reference (Units ) Status WBC, Total 05/24/2023 10:03:41 13.44 Above high normal 4 .00-10.80 (K/uL) Final RBC 05/24/2023 10:03:41 4.09 3.85-5.15 (M/uL) Final Hemoglobin 05/24/2023 10:03:41 11.7 Below low normal 12 .0-15.3 (g/dL) Final HCT 05/24/2023 10:03:41 37.4 36.0-45.2 (%) Final MCV 05/24/2023 10:03:41 91.4 81.5-97.5 (fL) Final MCH 05/24/2023 10:03:41 28.6 27.0-34.0 (pg) Final MCHC 05/24/2023 10:03:41 31.3 32.0-36.0 (g/dL) Final RDW 05/24/2023 10:03:41 16.4 11.5-15.5 (%) Final Platelets 05/24/2023 10:03:41 233 140-400 (K /uL) Final MPV 05/24/2023 10:03:41 10.5 6.6-11.1 ( fL) Final [facility] - [address] [place] [address]
--- OUTSIDE RECORDS SUMMARY | 2023-09-27 14:26 | External Medical Summary | Summary of Care ---
Author Name Unknown Organization [facility] Address [address] [place] [address] Phone [phone] Care Team Providers Care Service Restorer Emergency Name Role Phone Rizwana Antunez MD Primary Care Provider [phone] Reason for Visit * Reason Comments Outpatient Testing Encounter Details Date Type Department Care Team (Late st Contact Info) Description 05/24/2023 10:10 AM EDT Laboratory Laboratory, [facility] [address] [facility] [place] [phone] HunterDenzel reyes [facility] [address] [place] [address] Chronic respiratory failure with hypoxia, on home oxygen therapy (HCC); Hospital discharge follow-up; Nutritional anemia, unspecified Allergies Active Allergy Reactions Criticality Noted Date Comments Lisinopril Cough 05/04/2022 documented as of this encounter (statuses as of 05/24/2023) Medications Medication Sig Dispensed Refills Start Date End Date Status Atorvastatin Calcium 10 MG Oral Tablet (Lipitor)Indications :Type 2 diabetes mellitus with hemoglobin A1c goal of less than 7.0% ([facility]),Dyslipidemia, goal LDL below 100 TAKE 1 TABLET [...] hemoglobin A1c goal of less than 7.0% ([facility]),Chronic respiratory failure with hypoxia, on home oxygen therapy ([facility]),IPF (idiopathic pulmonary fibrosis) ([facility]),[facility] (current) use of systemic steroids Take 1 Tablet by mouth in the morning. 90 Tablet 0 04/16/2023 Active Pirfenidone 801 MG Oral Tablet (Esbriet)Indications :Chronic idiopathic pulmonary fibrosis (HCC),Chronic respiratory failure with hypoxia, on home oxygen therapy ([facility]) Take 801 mg by mouth in the [...] failure with hypoxia, on home oxygen therapy ([facility]),IPF (idiopathic pulmonary fibrosis) ([facility]),Type 2 diabetes mellitus with hemoglobin A1c goal of less than 7.0% ([facility]),[facility] (current) use of systemic steroids Take 2 Tablets by mouth daily with dinner. (Restart 1 tab 01/18/2023) inc 2 tabs 01/30/2023, inc 3 tabs 03/26/2023, inc 4 tabs 05/15/2023 360 Tablet 1 05/15/2023 Active Hospital, Clinic, or Other Facility Administered Medication Ordered Dose Route Frequency Start Date End Date Status Albuterol Sulfate (Proventil) (2.5 MG/3ML) 0.083% inhalation solution 2.5 mgIndications:IPF (idiopathic pulmonary fibrosis) ([facility]) 2.5 mg NEBULIZER PRN 12/05/2022 12/05/2023 Active documented as of this encounter (statuses as of 05/24/2023) Active Problems Problem Noted Date Diagnosed Date [...] as of this encounter (statuses as of 05/24/2023) Resolved Problems Problem Noted Date Diagnosed Date Resolved Date Acute pulmonary edema 11/30/20222022 Bacteremia due to Staphylococcus epidermidis 12/10/2022 Multifocal pneumonia 11/26/2022 023 Severe persistent asthma with exacerbation 07/31/2022 12/10/2022 Severe obesity with body mas s index (BMI) of 35.0 to 39.9 with serious comorbidity 11/20/2021 documented as of this encounter (statuses as of 05/24/2023) Immunizations Name Administration Dates Next Due COVID-19 mRNA, LNP-s, No Pre serve, 2-Dose Series (Moderna) 04/26/2020,03/29/2020 COVID-19, LNP-s, No Preserve , Mir-sucrose, Ages 12+ ([employer]) 01/08/2022 COVID-19, mRNA, LNP-s, PF, B ooster, [...] Care Team (Late st Contact Info) Description 05/24/2023 10:20 AM EDT Office Visit Pulmonary Medicine, [facility] [address] [facility] [place] [address] Frank Finch MD [address] [place] [address] 05/24/2023 06/13/2023 1:00 PM EDT Nurse Only Pulmonary Medicine, [facility] [address] [facility] [place] [address] Gw, Nurse Pulmonary [address] [place] [address] [place] [address] 07/09/2023 11:00 AM EDT Telemedicine Palliative Medicine, [facility] [address] [facility] 5th [place] [address] Radha Almazan PARoxanne [address] [place] [address] 07/29/2023 10:00 AM EDT [facility] [address] [facility] [place] [address] 07/29/2023 3:00 PM EDT [facility] [address] [facility] [place] [address] Rizwana Antunez MD [address] [facility] [place] [address] 08/14/2023 1:30 PM EDT Office Visit Cardiology, [facility] [address] [facility] [place] [address] Ni Kay PA-C [address] [place] [address] 12/02/2023 11:00 AM EDT Imaging Radiology, [facility] [address] [facility] [place] [address] 04/02/2024 1:00 PM EST Imaging Radiology [address] [place] [address] Pending Results Name Type Priority Associated Diagnoses Date /Time CBC WITH WBC DIFFERENTIAL Lab Routine Chronic respiratory failure with hypoxia, on home oxygen therapy ([facility]) Hospital discharge follow-up Nutritional anemia, unspecified 05/24/2023 10:03 AM EDT IRON SCREEN, INCLUDING TIBC Lab Routine Hospital discharge follow-up Nutritional anemia, unspecified 05/24/2023 10:03 AM EDT CBC Lab Routine Chronic respiratory failure with hypoxia, on home oxygen therapy (HCC) Hospital discharge follow-up Nutritional anemia, unspecified 05/24/2023 10:03 AM EDT DIFFERENTIAL, AUTOMATED Lab Routine Chronic respiratory failure with hypoxia, on home oxygen therapy ([facility]) Hospital discharge follow-up Nutritional anemia, unspecified 05/24/2023 10:03 AM EDT Health Maintenance Due Date Last Done [...] as of this encounter Visit Diagnoses Diagnosis Chronic respiratory failure with hypoxia, on home oxygen therapy (HCC) Hospital discharge follow-up Other follow-up examination Nutritional anemia, unspecified documented in this encounter Advance Directives Documents on File Type Date Recorded Patient Bobbin Presser Expl anation POLST 05/24/2023 9:25 AM POLST [...] the patient have Health Care Power of Ruffler? No Code Status History Code Status Date Activated Date Inactivated Comments Limited Code 11/26/2022 8:55 PM 12/04/2022 10:12 PM This order reflects the patients wishes and were consensually agreed upon. Question Answer Comments Discussion of Advance Directives occurred with: Patient Does the patient have a Living Will? No Does the patient have Health Care Power of Ruffler? No Bag Valve Device? No Intubation? No Cardiac Compressions? Yes Defibrillation? Yes Synchronized Cardioversion? Yes External Pacemaker? Yes Cardiac Drugs? Yes Care Teams Service Restorer Emergency Relationship Specialty Start Date End Date Rizwana Antunez MD [address] [place] [id number] PCP - General Internal Medicine 03/28/22 documented as of this encounter
--- OUTSIDE RECORDS SUMMARY | 2023-09-27 14:26 | External Medical Summary | Summary of Care ---
Author Name Unknown Organization [facility] Address [address] [place] [facility] [place] [address] Phone [phone] Care Team Providers Care Dairy Powder Mixer Operator Name Role Phone Rizwana Antunez MD Primary Care Provider [phone] Reason for Visit * Reason Comments Pulmonary Function Test PFT with broncho dilator Encounter Details Date Type Department Care Team (Latest Contact Info) Description 05/14/2023 9:00 AM EST PulmDiagnostic Pulmonary Function Lab, [facility] [address] [facility] [place] [address] [place], [address] [place] [address] IPF (idiopathic pulmonary fibrosis) ([facility])* Allergies Active Allergy Reactions Criticality Noted Date Comments Lisinopril Cough 05/04/2022 documented as of this encounter (statuses as of 05/14/2023) Medications Medication Sig Dispensed Refills Start Date [...] home oxygen therapy (HCC),IPF (idiopathic pulmonary fibrosis) ([facility]),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 (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) use of systemic steroids Take 2 [...] home oxygen therapy ([facility]),IPF (idiopathic pulmonary fibrosis) ([facility]),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 (current) use of systemic steroids Take 1 [...] as of this encounter (statuses as of 05/14/2023) Active Problems Problem Noted Date Diagnosed Date [...] as of this encounter (statuses as of 05/14/2023) Resolved Problems Problem Noted Date Diagnosed Date Resolved Date Acute pulmonary edema 11/30/20222022 Bacteremia due to Staphylococcus epidermidis 3 12/10/2022 Multifocal pneumonia 11/26/2022 023 Severe persistent asthma with exacerbation 07/31/2022 12/10/2022 Severe obesity with body mas s index (BMI) of 35.0 to 39.9 with serious comorbidity 11/20/2021 documented as of this encounter (statuses as of 05/14/2023) Immunizations Name Administration Dates Next Due COVID-19 mRNA, LNP-s, No Pre serve, 2-Dose Series (Moderna) 04/26/2020,03/29/2020 COVID-19, LNP-s, No Preserve , Mir-sucrose, Ages 12+ ([employer]) 01/08/2022 COVID-19, mRNA, LNP-s, PF, B ooster, [...] Taken Comments Blood Pressure - - Pulse - - Temperature - - Respiratory Rate - - Oxygen Saturation - - Inhaled Oxygen Concentration - - Weight 76 kg (167 lb 8.8 oz) 05/14/2023 9:31 AM EST Height 157.8 cm (5' 2.13") 05/14/2023 9:31 AM ES T Body Mass Index 30.52 05/14/2023 9:31 AM EST documented in this encounter Functional Status [...] No 05/08/2023 documented as of this encounter Nursing Notes * Tutu Padilla RRT - 05/14/2023 9:37 AM EST Nicolasa Gomez was identified by name, Date of : (1950), and . Vitals were obtained for testing. Body mass index is 30.52 kg/m. Pt does not have a smoking history. Pt wears 10-12 lpm during the day and 10 lpm at bedtime, titrate to 10-15 liters on exertion to keep saturation >90% since hosp DC. Pt wears 8 liters at rest sitting at times. 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 Spirometry and DLCO performed. A slow volume nebulizer treatment of 0.5ml of albuterol in 3 ml of NSS was given. The proper method of use, as well as anticipated side effects, of this svn are discussed and demonstrated to the patient. Patient demonstrates adequate delivery. Administrations This Visit Albuterol Sulfate (Proventil) (2.5 MG/3ML) 0.083% inhalation solution 2.5 mg Admin Date 05/14/2023 Action Given Dose 2.5 mg Route Nebulizer Documented By Tutu Padilla RRT documented in this encounter Plan of Treatment Upcoming Encounters Date Type Department Care Team (Late st Contact Info) Description 05/15/2023 4:00 PM EST Office Visit General Internal Medicine [address] [place] [address] Rizwana Antunez MD [address] [place] [address] [place] [address] 05/22/2023 3:30 PM EDT Office Visit Palliative Medicine [facility] [address] [place] [phone] Amarilys Ramirez MD [facility] [phone] 05/24/2023 10:20 AM EDT Office Visit Pulmonary Medicine, [facility] 132 [facility] [place] [address] Frank Finch MD [address] [facility] [address] 06/13/2023 1:00 PM EDT Nurse Only Pulmonary Medicine, [facility] [address] [place] [address] Gw, Nurse Pulmonary [address] [place] [address] [place] [address] 06/20/2023 10:00 AM EDT Laboratory Laboratory [facility] 200 [facility] [place], [place] [id number] [facility] [address] [place], [place] [address] 06/25/2023 1:20 PM EDT Office Visit General Internal Medicine [facility] 200 [facility] [place], [place] [address] Rizwana Antunez MD 200 [facility] [place], [place] [address] 07/29/2023 10:00 AM EDT Imaging Radiology [facility]st [facility] 132 [facility] [place] [address] 08/14/2023 1:30 PM EDT Office Visit Cardiology, [facility] [address] [facility] [place] [address] Ni Kay PA-C [address] [place] [address] 12/02/2023 11:00 AM EDT Imaging Radiology, [facility] [address] [facility] [place] [address] 04/02/2024 1:00 PM EST Imaging Radiology [address] [place] [address] Pending Results Name Type Priority Associated Diagnoses Date /Time SPIROMETRY B/A BRONCHODILATOR Procedures Routine IPF (idiopathic pulmonary fibrosis) (HCC) 05/14/2023 9:18 AM EST Health Maintenance Due Date Last Done Comments [...] Not on filedocumented as of this encounter Procedures Procedure Name Priority Date/Time Associated Diagnosis Comments SPIROMETRY B/A BRONCHODILATOR Routine 05/14/2023 9:18 AM EST IPF (idiopathic pulmonary fibrosis) (HCC) documented in this encounter Visit Diagnoses Diagnosis IPF (idiopathic pulmonary fibrosis) (HCC)- Primary Idiopathic pulmonary fibrosis documented in this encounter Administered Medications Active Administered Medications - up to 3 most recent administrations Medication Order MAR Action Action Date Dose Rate Site Albuterol Sulfate (Proventil) (2.5 MG/3ML) 0.083% inhalation solution 2.5 mg 2.5 mg, Nebulizer, PRN Other, Starting on Sat12/05/22 at 1223, Until Sat12/05/23 at 1222, For 365 days, Only one type of albuterol product should be administered (Nebulizer or Inhaler). Please select and document on the appropriate albuterol product order. Given 05/14/2023 9:13 AM EST 2.5 mg documented in this encounter Advance Directives Latest Code Status on File Code Status Date Activated Date Inactivated Comments Full Code 05/08/2023 8:20 PM 05/11/2023 6:30 PM This o rder reflects the patients wishes and were consensually agreed upon. Question Answer Comments Discussion of Advance Directives occurred with: Patient Does the patient have a Living Will? No Does the patient have Health Care Power of [employer]? No Code Status History Code Status Date Activated Date Inactivated Comments Limited Code 11/26/2022 8:55 PM 12/04/2022 10:12 PM This order reflects the patients wishes and were consensually agreed upon. Question Answer Comments Discussion of Advance Directives occurred with: Patient Does the patient have a Living Will? No Does the patient have Health Care Power of [employer]? No Bag Valve Device? No Intubation? No Cardiac Compressions? Yes Defibrillation? Yes Synchronized Cardioversion? Yes External Pacemaker? Yes Cardiac Drugs? Yes Care Teams Dairy Powder Mixer Operator Relationship Specialty Start Date End Date Rizwana Antunez MD [address] [place] [address] PCP - General Internal Medicine 03/28/22 documented as of this encounter
--- OUTSIDE RECORDS SUMMARY | 2023-09-27 14:26 | External Medical Summary ---
Author Name Unknown Address Unknown Organization [id number] [address] [place] [address] Laboratory Report Ordering Provider Test Date Status GILBERTO DELCID 05/24/2023 10:03:41 Final Observation Date Value Abnormality Reference (Units ) Status SYNC LEUKOCYTES IN BLOOD BY AUTOMATED COUNT 05/24/2023 10:03:41 13.44 Above high normal 4.00-10.80 (K/uL) Final Segs 05/24/2023 10:03:41 65.8 40.0-75.0 (%) Final Lymphs % 05/24/2023 10:03:41 26.0 18.0-42.0 (%) Final Monos 05/24/2023 10:03:41 8.1 1.0-11.0 (%) Final Eosinophils 05/24/2023 10:03:41 0.0 0.0-6.0 (%) Final Basos 05/24/2023 10:03:41 0.1 0.0-2.0 (%) Final Absolute Segs 05/24/2023 10:03:41 8.83 Above high normal 1.80-7.70 (K/uL) Final Lymphs, absolute 05/24/2023 10:03:41 3.50 1.00-4.80 (K/ul) Final Monos, Abs 05/24/2023 10:03:41 1.09 0.00-1.10 (K/uL) Final Eos, Abs 05/24/2023 10:03:41 0.00 0.00-0.70 (K/uL) Final Basos, Abs 05/24/2023 10:03:41 0.02 0.00-0.20 (K/uL) Final Performing Location [facility] [address] [place] [address]
--- OUTSIDE RECORDS SUMMARY | 2023-09-27 14:26 | External Medical Summary | Summary of Care ---
Author Name Unknown Organization [facility] Address [address] [place] [address] Phone [phone] Care Team Providers Care Cfo Controller Name Role Phone Rizwana Antunez MD Primary Care Provider [phone] Reason for Visit * Reason Comments Follow Up Here hospital discha re. Encounter Details Date Type Department Care Team (Late st Contact Info) Description 05/24/2023 10:20 AM EDT Office Visit Pulmonary Medicine, [facility] [address] [facility] [place] [id number] Frank Finch MD [address] [facility] [address] Chronic respiratory failure with hypoxia (HCC)* Allergies Active Allergy Reactions Criticality Noted Date [...] hemoglobin A1c goal of less than 7.0% ([facility]),Chronic respiratory failure with hypoxia, on home oxygen therapy ([facility]),IPF (idiopathic pulmonary fibrosis) ([facility]),custodial (current) use of systemic steroids Take 1 Tablet by mouth in the morning. 90 Tablet 0 04/16/2023 Active Pirfenidone 801 MG Oral Tablet (Esbriet)Indications :Chronic idiopathic pulmonary fibrosis ([facility]),Chronic respiratory failure with hypoxia, on home oxygen therapy ([facility]) Take 801 mg by mouth [...] failure with hypoxia, on home oxygen therapy ([facility]),IPF (idiopathic pulmonary fibrosis) ([facility]),Type 2 diabetes mellitus with hemoglobin A1c goal of less than 7.0% ([facility]),custodial (current) use of systemic steroids Take 2 Tablets by mouth daily with dinner. (Restart 1 tab 01/18/2023) inc 2 tabs 01/30/2023, inc 3 tabs 03/26/2023, inc 4 tabs 05/15/2023 360 Tablet 1 05/15/2023 Active Azithromycin 250 MG Oral Tablet (Zithromax Z-Guillermo) Take 1 Tablet by mouth once a day on Saturday, Saturday, and Saturday only for 90 doses. 90 Tablet 0 05/24/2023 Active Hospital, Clinic, or Other Facility Administered Medication Ordered Dose Route Frequency Start Date End Date Status Albuterol Sulfate (Proventil) (2.5 MG/3ML) 0.083% inhalation solution 2.5 mgIndications:IPF (idiopathic pulmonary fibrosis) ([facility]) 2.5 mg NEBULIZER PRN 12/05/2022 [...] LNP-s, No Preserve , Mir-sucrose, Ages 12+ ([facility]) 01/08/2022 COVID-19, mRNA, LNP-s, PF, B ooster, [...] Sign Reading Time Taken Comments Blood Pressure 118/60 05/24/2023 10:20 AM EDT Pulse 85 05/24/2023 10:20 AM EDT Temperature 35.7 C (96.3 F) 05/24/2023 1 0:20 AM EDT Respiratory Rate 16 05/24/2023 10:2 0 AM EDT Oxygen Saturation 94% 05/24/2023 10: 20 AM EDT o2 10 L -rest Inhaled Oxygen Concentration - - Weight 74.4 kg (164 lb) 05/24/2023 10:2 0 AM EDT Height 157.5 cm (5' 2") 05/24/2023 10:2 0 AM EDT Body Mass Index 30 05/24/2023 10:20 AM EDT documented in this encounter Functional Status [...] Progress Notes * Frank Finch MD - 05/24/2023 10:17 AM EDT 05/24/2023 [address]monary Medicine, [address] [place] [address] [id number] Nicolasa Gomez 1950 female 73 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 Since last evaluation, patient has been evaluated by [facility] transplant evaluation team, declined due to frail body habitus and multiple comorbidities related high risk status. Patient also required hospitalization at [facility] facility at [facility] due to severe hypoxic respiratory and status episode. Discharge on taper dose prednisone following completion of antibiotic therapy. Palliativecare consultation and visit was completed during recent hospitalization at [facility]. Patient is care plan was also reviewed at Pulmonary [...] communicated with the patient during today's evaluation. On today's visit Patient describes relative stabilization of respiratory symptoms status while on Fasenra/pirfenidone/prednisone therapy. Decreased shortness of breath. Prednisone therapy has been maintained at 20 mg since hospital discharge. Denies productive cough. Limited exercise tolerance, wants to ambulate, using a walker for assistance. Current bronchodilator regimen includes Breztri twice daily. [...] right subclavian artery. 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 Pulmonary clinic follow-up in 2 [...] pulmonary disease. Assessment Severe persistent allergic asthma NSIP/progressive I LD/IPF Hypoxic respiratory failure Severely elevated IgE levels Follow-up: Return in about 2 months. | Check-out note: Severe persistent allergic asthma IPF Chronic Hypoxia Elevated IgE 1947 Chronic maintain prednisone therapy status Plan: C/w Esbriet, Fasenra prednisone 20 mg daily to continue C/w oxygen 12L with activity and 10L Cont at rest/HS. . New Rx for high-flow ambulatory oxygen therapy evaluation was ordered C/w current BD Rx Continue prednisone 20 mg daily as MAINTENANCE therapy Azithromycin 250 mg Saturday, Saturday, Saturday was added as maintenance therapy. F/u 2 months Follow-up: Return in about 2 months (around 07/24/2023). | Check-out note: Severe persistent allergic asthma Progressive pulmonary fibrosis /UIP/NSIP Severe Hypoxic respiratory failure Severely elevated IgE levels Severe Hypoxic Resp failure Moderate Peristent Asthma IPF Chronic Hypoxia Elevated IgE 1947 Failed Prednisone Burst twice within 12 months Plan: C/w Esbriet C/w 12L with activity and 10L Cont at rest/HS C/w current BD Rx Fasenra will be continued CONTINUE prednisone 20 mg DAILY as MAINTENANCE therapy Evaluate for Hi Flow Ambulatory Oxygen Z Follow-up: Return in about 2 months (around 07/24/2023). | Check-out note: ithromycin 250 mg MWF added Additional radiologic diagnostic workup will be canceled at this point F/u 2 months Frank Finch MD Subjective CC: Chief Complaint Patient presents with Follow Up Here hospital dischare. HPI: Nursing Notes: Mel Goodwin LPN 05/24/23 1025 Signed Chief Complaint Patient presents with Follow Up Here hospital dischare. Interm History/Respiratory Symptoms Cough: yes-no Hemoptysis: no Sinus Symptoms: yes Hospitalizations: yes-05/08/23 ED Trips: 05/08/23 Triggers: no Nocturnal: sleeps with head elevated CPAP/BiPAP/O2: o2 10 L Flu Vaccine: 2022 Pneumovax: 2020 Prevnar: 2019 COVID 19: x6. Myc Visit Accident Related Question Question 05/13/2023 12:15 PM EDT - Filed by Patient Is this visit related to an accident? (i.e work, motor vehicle) No Mmrc Cat Question 05/24/2023 10:19 AM EDT - Filed by Mel Goodwin LPN When do you become breathless? (3) I stop for breath after walking about 100 yards or after a few minutes on level ground How frequently do you cough? (3) Do you have phlegm in your chest? (2) Is your chest tight? (0) - My chest does not feel tight at all How breathless do you become when walking up a hill or steps? (4) How limited are you doing activities at home? (4) How confident are you leaving home with your lung condition? (2) How soundly do you sleep? (2) How much energy do you have? (3) Total MMRC Score (range: 0 - 4) 3 Total CAT Score (range: 0 - 40) 20 Objective Filed Vitals: 05/24/23 1020 BP: 118/60 Pulse: 85 Resp: 16 Temp: 35.7 C (96.3 F) TempSrc: Tympanic SpO2: 94% Weight: 74.4 kg (164 lb) Height: 1.575 m (5' 2") Exam: [...] by: Kellie Esposito on 04/04/2023 11:03 AM XR CHEST 1 VIEW Result Date: 12/03/2022 IMPRESSION: Unchanged appearance of the chest. THIS DOCUMENT HAS BEEN ELECTRONICALLY SIGNED BY RAUL ORANTES MD XR CHEST 1 VIEW Result Date: 11/30/2022 IMPRESSION: 1. Chronic interstitial lung disease and bronchiectasis with interval increased interstitial opacity and peribronchial cuffing. Suspect superimposed pulmonary edema. Viral/atypical infection is a differential consideration. Correlate clinically. 2. No pleural effusion or pneumothorax. 3. Stable moderate cardiomegaly. 4. Stable bilateral hilar adenopathy. THIS DOCUMENT HAS BEEN ELECTRONICALLY SIGNED BY KARLA NDIAYE MD CT PULMONARY EMBOLUS W CONTRAST Result Date: 11/26/2022 IMPRESSION: 1. Findings of chronic interstitial lung disease with superimposed pneumonia. 2. No pulmonary embolus. THIS DOCUMENT HAS BEEN ELECTRONICALLY SIGNED BY COTY WHITEHEAD MD Available Radiologic data was reviewed by me in PACS. The images were shown to the patient and findings were discussed with the patient. HOME MEDICATIONS: Azithromycin 250 MG Oral Tablet (Zithromax Z-Guillermo) metFORMIN HCl ER 500 MG Oral Tablet Extended Release 24 Hour (Glucophage XR) Omeprazole 20 MG Oral Tablet Delayed Release predniSONE 20 MG Oral Tablet (Deltasone) Pirfenidone 801 MG Oral Tablet (Esbriet) Empagliflozin 10 MG Oral Tablet (Jardiance) Losartan Potassium 50 MG Oral Tablet (Cozaar) Breztri Aerosphere 160-9-4.8 MCG/ACT Inhalation Aerosol (Aqtqwiz-Wvusqfntkbr-Msypskirem) oxygen IN GAS Fasenra 30 MG/ML Subcutaneous Solution Prefilled Syringe Multi-Vitamins Oral Tablet Repaglinide 0.5 MG Oral Tablet (Prandin) Loratadine 10 MG Oral Tablet (Claritin) Ipratropium-Albuterol 0.5-2.5 (3) MG/3ML Inhalation Solution Probiotic Acidophilus Oral Capsule Atorvastatin Calcium 10 MG Oral Tablet (Lipitor) Albuterol Sulfate (Proventil) (2.5 MG/3ML) 0.083% inhalation [...] Nursing Notes * Mel Goodwin LPN - 05/24/2023 10:22 AM EDT Chief Complaint Patient presents with Follow Up Here hospital dischare. Interm History/Respiratory Symptoms Cough: yes-no Hemoptysis: no Sinus Symptoms: yes Hospitalizations: yes-05/08/23 ED Trips: 05/08/23 Triggers: no Nocturnal: sleeps with head elevated CPAP/BiPAP/O2: o2 10 L Flu Vaccine: 2022 Pneumovax: 2020 Prevnar: 2019 COVID 19: x6. Myc Visit Accident Related Question Question 05/13/2023 12:15 PM EDT - Filed by Patient Is this visit related to an accident? (i.e work, motor vehicle) No [employer]mrc Cat Question 05/24/2023 10:19 AM EDT - Filed by Mle Goodwin LPN When do you become breathless? (3) I stop for breath after walking about 100 yards or after a few minutes on level ground How frequently do you cough? (3) Do you have phlegm in your chest? (2) Is your chest tight? (0) - My chest does not feel tight at all How breathless do you become when walking up a hill or steps? (4) How limited are you doing activities at home? (4) How confident are you leaving home with your lung condition? (2) How soundly do you sleep? (2) How much energy do you have? (3) Total MMRC Score (range: 0 - 4) 3 Total CAT Score (range: 0 - 40) 20 documented in this encounter Plan of Treatment Upcoming Encounters Date Type Department Care Team (Late st Contact Info) Description 06/13/2023 1:00 PM EDT Nurse Only Pulmonary Medicine, [facility] [address] [facility] [place] [address] Gw, Nurse Pulmonary [address] [facility] [place] [address] 07/09/2023 11:00 AM EDT Telemedicine Palliative Medicine, [facility] [address] [facility] 5th [place] [address] Radha Almazan PA-C [address] [place] [address] 07/25/2023 12:20 PM EDT Office Visit Pulmonary Medicine, [facility] [address] [facility] [place] [address] Frank Finch MD [address] [facility] [place] [address] 07/29/2023 3:00 PM EDT Office Visit General Internal [facility] [address] [facility] [place] [place] [address] Rizwana Antunez MD [address] [facility] [place] [address] 08/14/2023 1:30 PM EDT Office Visit Cardiology, [facility] [address] [facility] [place] [address] Ni Kay PA-C [address] [place] [address] 12/02/2023 11:00 AM EDT Imaging Radiology, [facility] [address] [facility] [place] [address] 04/02/2024 1:00 PM EST Imaging Radiology [address] [place] [address] Health Maintenance Due Date Last Done Comments [...] Visit Diagnoses Diagnosis Chronic respiratory failure with hypoxia (HCC)- Primary Chronic respiratory failure documented in this encounter Advance Directives Documents on File Type Date Recorded 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 No Code Status History Code Status Date Activated Date Inactivated Comments Limited Code 11/26/2022 8:55 PM 12/04/2022 10:12 PM This order reflects the patients wishes and were consensually agreed upon. Question Answer Comments Discussion of Advance Directives occurred with: Patient Does the patient have a Living Will? No Does the patient have Health Care Power of Chemist Biological? No Bag Valve Device? No Intubation? No Cardiac Compressions? Yes Defibrillation? Yes Synchronized Cardioversion? Yes External Pacemaker? Yes Cardiac Drugs? Yes Care Teams Cfo Controller Relationship Specialty Start Date End Date Rizwana Antunez MD [address] [place] [id number] PCP - General Internal Medicine 03/28/22 documented as of this encounter
--- OUTSIDE RECORDS SUMMARY | 2023-09-27 14:26 | External Medical Summary | Summary of Care ---
Author Name Unknown Organization [facility] Address [address] [place] [address] Phone [phone] Care Team Providers Care Brass Cleaner Name Role Phone Rizwana Antunez MD Primary Care Provider [phone] Reason for Visit * Reason Comments Follow Up Encounter Details Date Type Department Care Team (Late st Contact Info) Description 05/22/2023 3:00 PM EDT Office Visit Palliative Medicine [facility] [address] [place] [address] Amarilys Ramirez MD [address] [place] [id number] IPF (idiopathic pulmonary fibrosis) ([facility])*; Interstitial lung disease (HCC); Acute on chronic respiratory failure with hypoxia ([facility]); Pulmonary hypertension ([facility]) Allergies Active Allergy Reactions Criticality Noted Date Comments Lisinopril Cough 05/04/2022 documented as of this encounter (statuses as of 05/22/2023) Medications Medication Sig Dispensed Refills Start Date [...] hemoglobin A1c goal of less than 7.0% ([facility]),Chronic respiratory failure with hypoxia, on home oxygen therapy ([facility]),IPF (idiopathic pulmonary fibrosis) ([facility]),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 (Restart 1 tab 01/18/2023) inc 2 tabs 01/30/2023, inc 3 tabs 03/26/2023, inc 4 tabs 05/15/2023 360 Tablet 1 05/15/2023 Active Hospital, Clinic, or Other Facility Administered Medication Ordered Dose Route Frequency Start Date End Date Status Albuterol Sulfate (Proventil) (2.5 MG/3ML) 0.083% inhalation solution 2.5 mgIndications:IPF (idiopathic pulmonary fibrosis) ([facility]) 2.5 mg NEBULIZER PRN 12/05/2022 12/05/2023 Active documented as of this encounter (statuses as of 05/22/2023) Active Problems Problem Noted Date Diagnosed Date [...] as of this encounter (statuses as of 05/22/2023) Resolved Problems Problem Noted Date Diagnosed Date Resolved Date Acute pulmonary edema 11/30/20222022 Bacteremia due to Staphylococcus epidermidis 3 12/10/2022 Multifocal pneumonia 11/26/2022 023 Severe persistent asthma with exacerbation 07/31/2022 12/10/2022 Severe obesity with body mas s index (BMI) of 35.0 to 39.9 with serious comorbidity 11/20/2021 documented as of this encounter (statuses as of 05/22/2023) Immunizations Name Administration Dates Next Due COVID-19 mRNA, LNP-s, No Pre serve, 2-Dose Series (Moderna) 04/26/2020,03/29/2020 COVID-19, LNP-s, No Preserve , Mir-sucrose, Ages 12+ ([employer]) 01/08/2022 COVID-19, mRNA, LNP-s, PF, B [...] Sign Reading Time Taken Comments Blood Pressure 147/83 05/22/2023 3:42 PM EDT Pulse 109 05/22/2023 3:42 PM EDT Temperature 36.8 C (98.3 F) 05/22/2023 3:42 PM ED T Respiratory Rate 16 05/22/2023 3:42 PM EDT Oxygen Saturation 76% 05/22/2023 3:42 PM EDT Inhaled Oxygen Concentration - - Weight 74.8 kg (164 lb 14.4 oz) 05/22/2023 3:42 PM EDT Height 157.8 cm (5' 2.13") 05/22/2023 3:42 PM ED T Body Mass Index 30.03 05/22/2023 3:42 PM EDT documented in this encounter Functional [...] No 05/08/2023 documented as of this encounter Patient Instructions * Patient Instructions* Amarilys Ramirez MD - 05/22/2023 4:34 PM EDT Our Palliative Medicine Clinic is available Saturday through Saturday during business hours, so we are unavailable on weekends and holidays. Please ensure that you request refills early in the week as itmay take 1-2 days for them to be addressed and filled, for authorizations to be approved, or for the pharmacy to order them if needed. You can contact our office at [phone], which is our clinic in [place], or you can message us on [employer]. If you have an emergency outside of these hours, we recommend calling your primary care clinic, Oncology office, or going to the ER if you have a medical emergency. Put the pink POLST form on the e Look at this for the hospice criteria: [email or web address] [email or web address]-[email or web address]-disease We would use [facility] or [address] [place] [address] documented in this encounter Progress Notes * Amarilys Ramirez MD - 05/22/2023 3:00 PM EDT Palliative Medicine Outpatient Progress Note [facility] Palliative Medicine Outreach [address] [place] [address] Name: Nicolasa Gomez Date: 05/22/2023 HPI: Nicolasa Gomez is a 73 year old female with pulmonary fibrosis seen in follow-up for goals ofcare and symptom management. Doing ok, is now on a higher dose of prednisone of 20mg daily, not dipping o2 as badly as before, now it dips down to 50% Sees Dr Finch and Dr Angeles for Pulmonary Reports physically she is OK - moving slower, in wheelchair, life is different than before. Used leeanne very active. Wears 6L/min at rest, and 10L/min when walking Has had about 4 admissions in the last year Examination: BP 147/83 (BP Site: Left Arm, BP Position: Sitting, BP Cuff Size: Large) | Pulse 109 | Temp 36.8 C (98.3 F) (Tympanic) | Resp 16 | Ht 1.578 m (5' 2.13") | Wt 74.8 kg (164 lb 14.4 oz) | SpO2 76% |BMI 30.03 kg/m | BSA 1.81 m Constitutional: no acute distress, chronically ill HENT: normocephalic, atraumatic. Eyes: anicteric, sclera and conjunctiva normal. Neck: no stridor Chest: normal respiratory effort Abdominal: nondistended Extremities: no edema Data Review: External notes reviewed: - Reviewed notes from Cardiology - pt did not need a pacemaker at that time - Reviewed notes from [facility] DC summary Lab / Imaging Results: Hb 9.8 from 05/10/23 Information obtained from patients , daughter, and other daughter for collateral history Decision-making Capacity: Does Patient have Decisional Capacity? y Does Patient have a Healthcare Agent? Y, kids and Advanced Care Planning (see ACP Tab): AD in EMR: no POLST in EMR: no - She is clear she is a DNR She is ok with LIMITED tx She is ok with abx for comfort Does not want artificial nutrition, ok with IV hydration POLST completed, original given to patient, copy taken to be put into EMR under ACP docs but also scanned into Chart Review --> Scans ASSESSMENT/PLAN: Nicolasa Gomez is a 73 year old female seen in follow-up for goals of care and pain and symptom management. Idiopathic pulmonary fibrosis - Continue steroids for improving QOL - Reviewed hospice she does not want it at this time, but will call us when she does Functional decline - Wheelchair bound now, w/o2, does not need extra help Mood - Could consider mirtazapine in future 4. Goals of care - DNR if admitted as discussed today Follow up in 1-2 mo, sooner if needed Amarilys Ramirez MD Palliative Medicine Physician [facility] Office: [phone] 05/22/2023 documented in this encounter Nursing Notes * Elva Greer LPN - 05/22/2023 3:42 PM EDT Patient identifed by name and birthdate Do you have any concerns about pain management for today's visit? No Living Will or Advance Directive for Health Care as noted on the problem list. [facility] is a way you can talk to your provider on line through e-mail. Would you like to sign up? I can activate it for you? ALREADY ACTIVE Filed Vitals: 05/22/23 1542 BP: 147/83 Pulse: 109 Resp: 16 Temp: 36.8 C (98.3 F) TempSrc: Tympanic SpO2: 76% Weight: 74.8 kg (164 lb 14.4 oz) Height: 1.578 m (5' 2.13") Patient was instructed to not get up on the exam table/exam chair until directed and assisted by their provider; patient is to remain seated in the chair/ wheelchair/ exam table/ exam chair for fall prevention and safety reasons. Patient is aware to have assistance to step down off exam table/exam chair with personnel. Patient voiced full comprehension of instructions. documented in this encounter Miscellaneous Notes * ACP (Advance Care Planning) - Amarilys Ramirez MD - 05/22/2023 4:43 PM EDT Advance Care Planning Patient-centered Communication 05/22/2023 The patient/surrogate voluntarily agreed to participate in advance care planning discussion. They were advised that this is a separate service which may incur out of pocket cost in the form of copayment and/or deductibles. Location: Clinic Individual(s) present for conversation: Patient, Spouse, and Daughter(s) Decisions Synopsis [employer] Most Recent Value Past ~10 years 05/22/2023 16:43 Decisions CPR decision: Declines CPR 05/22/2023 Declines CPR Intubation/Mechanical Ventilation decision: Declines Intubation/mechanical ventilation 05/22/2023 Declines Intubation/mechanical ventilation Additional Comments Discerning What Matters Most to the Patient: [employer] Most Recent Value Past ~10 years 05/22/2023 16:43 Discerning What Matters Most to the Patient Their current SYMPTOMS include: Shortnes of breath 05/22/2023 Shortnes of breath Source: Content from [employer] Aligning Care With What Matters Most: [employer] Most Recent Value Past ~10 years 05/22/2023 16:43 Aligning Care With What Matters Most Interventions/Choices: CPR;Intubation/mechanical ventilation 05/22/2023 CPR;Intubation/mechanical ventilation Rationale for Decisions Advanced Care Planning (see ACP Tab): AD in EMR: no POLST in EMR: no - She is clear she is a DNR She is ok with LIMITED tx She is ok with abx for comfort Does not want artificial nutrition, ok with IV hydration POLST completed, original given to patient, copy taken to be put into EMR under ACP docs but also scanned into Chart Review --> Scans Source: Content from [employer] 20 minutes spent in direct qxbe-ag-qghb discussion today, Amarilys Ramirez MD documented in this encounter Plan of Treatment Upcoming Encounters Date Type Department Care Team (Late st Contact Info) Description 05/24/2023 10:20 AM EDT Office Visit Pulmonary Medicine, [address] [place] [address] Frank Finch MD [address] [facility] [place] [address] 06/13/2023 1:00 PM EDT Nurse Only Pulmonary Medicine, [facility] [address] [facility] [place] [address] Gw, Nurse Pulmonary [address] [facility] [place] [address] 07/29/2023 10:00 AM EDT Imaging Radiology [address] [place] [address] 07/29/2023 3:00 PM EDT Office Visit General Internal Medicine [facility] [address] [facility] [place] [address] Rizwana Antunez MD [address] [facility] [place] [address] 08/14/2023 1:30 PM EDT Office Visit Cardiology, [facility] [address] [facility] [place] [address] Ni Kay PA-C [address] [facility] [place] [address] 12/02/2023 11:00 AM EDT Imaging Radiology, [facility] [address] [facility] [place] [address] 04/02/2024 1:00 PM EST Imaging Radiology [address] [facility] [place] [address] Health Maintenance Due Date Last Done Comments Zoster Vaccines (2 of 3) 05/21/2014 03/26/2014 Depression Screening 05/04/2023 05/04/2022 Diabetic Eye Exam Discontinued 01/16/2019 Cologuard Discontinued 02/16/2022, 02/13/2022, 12/0 08/2021 Influenza Vaccine (FLU shot) Completed 12/24/2022, [...] on chronic respiratory failure with hypoxia (HCC) Pulmonary hypertension (HCC) Other chronic pulmonary heart diseases documented in this encounter Advance Directives Latest [...] the patient have Health Care Power of Traffic Analysis Technician? No Code Status History Code Status Date Activated Date Inactivated Comments Limited Code 11/26/2022 8:55 PM 12/04/2022 10:12 PM This order reflects the patients wishes and were consensually agreed upon. Question Answer Comments Discussion of Advance Directives occurred with: Patient Does the patient have a Living Will? No Does the patient have Health Care Power of Traffic Analysis Technician? No Bag Valve Device? No Intubation? No Cardiac Compressions? Yes Defibrillation? Yes Synchronized Cardioversion? Yes External Pacemaker? Yes Cardiac Drugs? Yes Care Teams Brass Cleaner Relationship Specialty Start Date End Date Rizwana Antunez MD [address] [facility] [place] [address] PCP - General Internal Medicine 03/28/22 documented as of this encounter
--- OUTSIDE RECORDS SUMMARY | 2023-09-27 14:27 | External Medical Summary ---
Author Name Unknown Address Unknown Organization K1F:LABORATORY [facility] - [address] [place] [address] Laboratory Report Ordering Provider Test Date Status SHREYAS MOLINA 05/08/2023 15:10:00 Final Warfarin Therapy
INR: 2 .0-3.0 conventional anticoagulation
INR: 2.5- 3.5 high intensity anticoagulation Observation Date Value Abnormality Reference (Units ) Status PT 05/08/2023 15:10:00 14.1 11.6-15.2 (seconds) Final INR 05/08/2023 15:10:00 1.1 0.8-1.2 Final Performing Location LABORATORY [facility] - [address] [place] [address]
--- OUTSIDE RECORDS SUMMARY | 2023-09-27 14:27 | External Medical Summary ---
Author Name Unknown Address Unknown Organization K1F:LABORATORY [facility] - [address] [place] [address] Laboratory Report Ordering Provider Test Date Status KIMBERLEY RUELAS 05/09/2023 04:56:00 Final Observation Date Value Abnormality Reference (Units ) Status WBC, Total 05/09/2023 04:56:00 11.46 Above high normal 4.00-10.80 (K/uL) Final RBC 05/09/2023 04:56:00 3.56 3.85-5.15 (M/uL) Final Hemoglobin 05/09/2023 04:56:00 10.1 Below low normal 12.0-15.3 (g/dL) Final HCT 05/09/2023 04:56:00 32.1 Below low normal 36.0-45.2 (%) Final MCV 05/09/2023 04:56:00 90.2 81.5-97.5 (fL) Final MCH 05/09/2023 04:56:00 28.4 27.0-34.0 (pg) Final MCHC 05/09/2023 04:56:00 31.5 32.0-36.0 (g/dL) Final RDW 05/09/2023 04:56:00 15.7 11.5-15.5 (%) Final Platelets 05/09/2023 04:56:00 260 140-400 (K/uL) Final MPV 05/09/2023 04:56:00 11.1 6.6-11.1 (fL) Final Nucleated erythrocytes/100 leukocytes [Ratio] in Blood by Automated count 05/09/2023 04:56:00 0 <=0 (/100 WBCs) Final Performing Location LAB[facility] - [address] [place] [address]
--- OUTSIDE RECORDS SUMMARY | 2023-09-27 14:27 | External Medical Summary | Summary of Care ---
Author Name Unknown Organization [facility] Address [address] [facility] [place] [place] [address] Phone [phone] Care Team Providers Care Sharepoint Trainer Name Role Phone Rizwana Antunez MD Primary Care Provider [phone] Reason for Visit * Reason Onset Date Comments Medication Pre-auth 05/08/2023 Pirfenidone 534Mg Encounter Details Date Type Department Care Team (Late st Contact Info) Description 05/08/2023 Telephone Pulmonary Medicine [facility] [address] [place] [address] Frank Finch MD [address] [place] [id number] Medication Pre-auth (Pirfenidone 534Mg) Allergies Active Allergy Reactions Criticality Noted Date Comments Lisinopril Cough 05/04/2022 documented as of this encounter (statuses as of 05/08/2023) Medications Medication Sig Dispensed Refills Start Date [...] goal of less than 7.0% ([facility]),Elevated BUN,Dehydration Take 1 Tablet by mouth in the morning and 1 Tablet at noon and 1 Tablet in the evening. Take before meals. If sugar >140 (using temporarily as holding metformin due to gfr 33 with diuretic use, STOP torsemide and potassium), stat lab 12/28/22. 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 90 Tablet 0 04/16/2023 Active predniSONE 10 MG Oral Tablet (Deltasone) Take 1 Tablet by mouth every other day for 180 doses. 90 Tablet 1 04/18/2023 5 Active Azithromycin 500 MG Oral Tablet (Zithromax) Take 1 Tablet by mouth in the morning for 5 days. Take each dose with meal.. 5 Tablet 0 05/06/2023 4 Active Pirfenidone 801 MG Oral Tablet (Esbriet)Indications :Chronic idiopathic pulmonary fibrosis ([facility]),Chronic respiratory failure with hypoxia, on home oxygen therapy ([facility]) Take 801 mg by mouth in the morning and 801 mg at noon and 801 mg before bedtime. one pill three times a day. 270 Tablet 5 05/07/2023 4 Active Hospital, Clinic, or Other Facility Administered Medication Ordered Dose Route Frequency Start Date End Date Status Albuterol Sulfate (Proventil) (2.5 MG/3ML) 0.083% inhalation solution 2.5 mgIndications:IPF (idiopathic pulmonary fibrosis) ([facility]) 2.5 mg NEBULIZER PRN 12/05/2022 12/05/2023 Active Albuterol Sulfate (Proventil) (5 MG/ML) 0.5% *conc* inhalation solution 2.5 mgIndications:IPF (idiopathic pulmonary fibrosis) ([facility]) 2.5 mg NEBULIZER PRN 12/05/2022 12/05/2023 Active Benralizumab (Fasenra) prefilled syringe 30 mgIndications:Severe persistent asthma without complication 30 mg SC [id number] 12/20/2022 06/06/2023 Acti ve documented as of this encounter (statuses as of 05/08/2023) Active Problems Problem Noted Date Diagnosed Date Asthma, severe persistent 04/18/2023 Pulmonary hypertension 12/06/2022 Right foot drop 12/02/2022 Elevated IgE level 11/28/2022 Interstitial lung disease 11/26/2022 Dependence on continuous [...] as of this encounter (statuses as of 05/08/2023) Resolved Problems Problem Noted Date Diagnosed Date Resolved Date Acute pulmonary edema 11/30/20222022 Acute on chronic respiratory failure with hypoxia 11/27/2022 12/10/2022 Bacteremia due to Staphylococcus epidermidis 12/10/2022 Multifocal pneumonia 11/26/2022 023 Severe persistent asthma with exacerbation 07/31/2022 12/10/2022 Severe obesity with body mas s index (BMI) of 35.0 to 39.9 with serious comorbidity 11/20/2021 documented as of this encounter (statuses as of 05/08/2023) Immunizations Name Administration Dates Next Due COVID-19 mRNA, LNP-s, No Pre serve, 2-Dose Series (Moderna) 04/26/2020,03/29/2020 COVID-19, LNP-s, No Preserve , Mir-sucrose, Ages 12+ ([employer]) 01/08/2022 COVID-19, mRNA, LNP-s, PF, B ooster, [...] you have serious difficulty h earing? No 11/26/2022 Are you blind or do you have serious difficulty seeing, even when wearing glasses? No 11/26/2022 Do you have serious difficul ty walking or climbing stairs? (5 years old or older) No 11/26/2022 Do you have difficulty dress ing or bathing? (5 years old or older) No 11/26/2022 Because of a physical, menta l, or emotional condition, do you have difficulty doing errands alone such as visiting a doctor s office or shopping? (15 years old or older) No 11/27/19 23 Cognitive Status Response Date of Assessm ent Because of a physical, menta l, or emotional condition, do you have serious difficulty concentrating, remembering, or making decisions? (5 years old or older) No 11/26/2022 documented as of this encounter Miscellaneous Notes * Telephone Encounter - Mel Goodwin LPN - 05/08/2023 9:04 AM EST Received fax from [employer]. Patients Pirfenidone 534 mg Has been approved 05/04/23 - 05/04/23. documented in this encounter Plan of Treatment Upcoming Encounters Date Type Department Care Team (Late st Contact Info) Description 05/08/2023 3:00 PM EST Office Visit Palliative Medicine [facility] [address] [place] [phone] Amarilys Ramirez MD [address] [place] [address] [place] [address] 05/14/2023 9:00 AM EST PulmDiagnostic Pulmonary Function Lab, [facility] 132 [facility] [place] [address] [place], [address] [facility] [place] [address] 06/13/2023 1:00 PM EDT Nurse Only Pulmonary Medicine, [facility] [address] [facility] [place] [address] Gw, [facility] [address] 06/20/2023 10:00 AM EDT Laboratory Laboratory [facility] [address] [place] [address] [place] [place] [address] 06/25/2023 1:20 PM EDT Office Visit General Internal Medicine [facility] [place] [address] Rizwana Antunez MD [facility] [place] [address] 07/25/2023 1:30 PM EDT Office Visit Cardiology, [facility] [address] [facility] [place] [address] Ni Kay PA-C 400 [facility] [place] [address] 07/29/2023 10:00 AM EDT Imaging Radiology [address] [facility] [place] [address] 12/02/2023 11:00 AM EDT Imaging Radiology, [facility] [address] [facility] [place] [address] 04/02/2024 1:00 PM EST Imaging Radiology [address] [facility] [place] [address] Health Maintenance Due Date Last Done Comments Hepatitis C Screening 1968 DTaP,Tdap,and Td Vaccines (1 - Tdap) 1968 Colonoscopy 1994 Sigmoidoscopy 1994 Zoster Vaccines (2 of 3) 05/21/2014 03/26/2014 Diabetic Eye Exam 01/17/2020 01/16/2019 Depression Screening 05/04/2023 05/04/2022 HbA1c 09/20/2023 03/22/2023, 11/09, 05/03/2022, Additional history exists Diabetic Foot Exam 01/31/2024 01/30/2023, 01/29/2022 GFR 03/22/2024 03/22/2023, 01/10, 01/08/2023, Additional history exists Albumin/Creatinine Ratio 03/26/2024 03/26/2023, 01/10 Fecal Occult Blood Test 03/26/2024 03/26/2023 Mammogram 04/01/2024 04/01/2023, 03/28/2022 Cologuard 02/16/2025 02/16/2022, 12/0 08/2021, 02/13/2022 Colorectal Cancer Screening 02/16/2025 Lipid Panel 09/21/2027 09/20/2022, 02/2 05/2022, 01/29/2022, Additional history exists DXA Scan 11/28/2031 11/27/2021 Pneumococcal Vaccine: 65+ Years Completed 01/04/2020, 11/27/2018 Influenza Vaccine (FLU shot) Completed 12/24/2022, 12/12/2021 COVID-19 Vaccine Completed 01/26/2023, , 07/07/2021, Additional history exists GARDASIL-HPV IMMUNIZATION SERIES Aged Out No longer eligible based on patient's age to complete this topic Hepatitis B Aged Out No longer eligi ble based on patient's age to complete this topic MENINGOCOCCAL (MENACTRA/MENVEO) Aged Out No longer eligible based on patient's age to complete this topic documented as of this encounter Medical Devices [...] the patient have Health Care Power of Senior Research Scientist? No Bag Valve Device? No Intubation? No Cardiac Compressions? Yes Defibrillation? Yes Synchronized Cardioversion? Yes External Pacemaker? Yes Cardiac Drugs? Yes Care Teams Sharepoint Trainer Relationship Specialty Start Date End Date Rizwana Antunez MD [address] [place] [address], [place] [address] PCP - General Internal Medicine 03/28/22 documented as of this encounter
--- OUTSIDE RECORDS SUMMARY | 2023-09-27 14:27 | External Medical Summary ---
Author Name Unknown Address Unknown Organization [facility] - [address] [facility]. [place] [id number] Laboratory Report Ordering Provider Test Date Status JOSEFINA LUNDY 05/08/2023 15:48:00 Final Observation Date Value Abnormality Reference (Units ) Status Body temperature 05/08/2023 15:48:00 37.0 (C) Final pH of Venous blood 05/08/2023 15:48:00 7.365 7.320-7.430 (units) Final Carbon dioxide [Partial pressure] in Venous blood 05/08/2023 15:48:00 46.2 40.0-60.0 (mmHg) Final Oxygen [Partial pressure] in Venous blood 05/08/2023 15:48:00 18.0 Below low normal 25.0-50.0 (mmHg) Final Base excess, Capillary 05/08/2023 15:48:00 0.7 -2.0-2.0 (mmol/L) Final Hemoglobin [Mass/volume] in Blood by Oximetry 05/08/2023 15:48:00 11.6 Below low normal 12.0-15.3 (g/dL) Final Oxyhemoglobin, Venous (FO2HB) 05/08/2023 15:48:00 19.7 Below low normal 40.0-85.0 (% total Hgb) Final Carboxyhemoglobin 05/08/2023 15:48:00 0.6 <=1.5 (% total Hgb) Final Smokers: 0-9.0 % Methemoglobin 05/08/2023 15:48:00 0.7 <= 1.5 (% total Hgb) Final Deoxyhemoglobin/Hemoglo bin.total in Venous blood 05/08/2023 15:48:00 79.0 (% total Hgb) Final Oxygen content in Venous blood 05/08/2023 15:48:00 3.2 Below low normal 7.0-18.0 (%vol) F inal Bicarbonate, Venous, POC (i-STAT) 05/08/2023 15:48:00 25.8 23.0-31.0 (mmol/L) Final Performing Location [facility] [address]. [place] [id number]
--- OUTSIDE RECORDS SUMMARY | 2023-09-27 14:27 | External Medical Summary ---
Author Name Unknown Address Unknown Organization [facility] - [address] [place] [address] Laboratory Report Ordering Provider Test Date Status KIMBERLEY RUELAS 05/09/2023 04:56:00 Final Observation Date Value Abnormality Reference (Units ) Status BUN 05/09/2023 04:56:00 26 Above high normal 6-20 (mg/dL) Final Creatinine 05/09/2023 04:56:00 0.9 0.5-1.0 (mg/dL) Final Glomerular filtration rate/1.73 sq M.predicted [Volume Rate/Area] in Serum, Plasma or Blood by Creatinine-based formula (CKD-EPI) 05/09/2023 04:56:00 72 >=60 (mL/min) Final eGFR is calculated based on the CKD-EPI 2020 equation SODIUM 05/09/2023 04:56:00 140 135-146 (m mol/L) Final Potassium 05/09/2023 04:56:00 4.2 3.5-5.1 (m mol/L) Final Cl 05/09/2023 04:56:00 105 98-107 (mm ol/L) Final CO2 05/09/2023 04:56:00 24 22-32 (mmo l/L) Final Anion gap 05/09/2023 04:56:00 11 7-15 (mmol /L) Final Glucose 05/09/2023 04:56:00 155 Above high normal 70 -120 (mg/dL) Final Calcium 05/09/2023 04:56:00 9.6 8.4-10.2 ( mg/dL) Final Performing Location [facility] - [address] [place] [id number]
--- OUTSIDE RECORDS SUMMARY | 2023-09-27 14:27 | External Medical Summary | Summary of Care ---
Author Name Unknown Organization [facility] Address [address] [place] [address] Phone [phone] Care Team Providers Care Assistant Chief Engineer Name Role Phone Rizwana Antunez MD Primary Care Provider Reason for Visit * Reason Comments Short of Breath * Auth/Cert Specialty Diagnoses / Procedures Referred By Kyle mike Referred To Contact [facility] [address] [place] [address] Phone: [phone] Emergency Medicine [facility] [address] [place] [address] Referral ID Status Reason Start Date Expiration Date Visits Re quested Visits Authorized [id number] Encounter Details Date Type Department Care Team (Latest Contact Info) Description 05/08/2023 3:15 PM EST - 05/11/2023 2:25 PM EST Hospital Encounter 3B [facility] 3rd Floor [address] [place], [place] [id number] Julisa Muñoz DO [address] [place], [place] [id number] Eugene Goldsmith MD [address] [place] [facility] [place], [place] [id number] Irwin Gutierrez MD [address] [place] [address] Discharge Disposition: Home - Self Care Allergies Active Allergy Reactions Criticality Noted Date Comments Lisinopril Cough 05/04/2022 documented as of this encounter (statuses as of 05/12/2023) Medications Medication Sig Dispensed Refills Start Date End Date Status Atorvastatin Calcium 10 MG Oral Tablet (Lipitor)Indication s:Type 2 diabetes mellitus with hemoglobin A1c goal of less than 7.0% (HCC),Dyslipidemia, goal LDL below 100 TAKE 1 TABLET BY MOUTH IN THE MORNING. 90 Tablet 3 3 Active Ipratropium-Albuter ol 0.5-2.5 (3) MG/3ML Inhalation [...] hosp DC 1 Each 0 3 Active Breztri Aerosphere 160-9-4.8 MCG/ACT Inhalation Aerosol (Budeson-Glycopyrro l-Formoterol) Inhale 2 Puffs by mouth in the morning and 2 Puffs in the evening. 10.7 g 11 3 Active Omeprazole 20 MG Oral Tablet Delayed Release Take 1 Tablet by mouth in the morning. 90 Tablet 3 3 Active metFORMIN HCl ER 500 MG Oral Tablet Extended Release 24 Hour (Glucophage XR)Indications:Type 2 diabetes mellitus with hemoglobin A1c goal of less than 7.0% ([facility]),Chronic respiratory failure with hypoxia, on home oxygen therapy ([facility]),IPF (idiopathic pulmonary fibrosis) ([facility]),alf (current) use of systemic steroids Take 2 Tablets by mouth daily with dinner. (Restart 1 tab 01/18/2023) inc 2 tabs 01/30/2023, inc 3 tabs 03/26/2023 60 Tablet 0 4 Active Losartan Potassium 50 MG Oral Tablet (Cozaar) Take 0.5 Tablets by mouth every evening. 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 90 Tablet 0 4 Active Pirfenidone 801 MG Oral Tablet (Esbriet)Indication s:Chronic idiopathic pulmonary fibrosis (HCC),Chronic respiratory failure with hypoxia, on home oxygen therapy ([facility]) Take 801 mg by mouth in the morning and 801 mg at noon and 801 mg before bedtime. one pill three times a day. 270 Tablet 5 4 08/05/19 24 Active predniSONE 20 MG Oral Tablet (Deltasone) Take 1 Tablet by mouth in the morning. 30 Tablet 0 4 Active oxygen IN GAS Administer 4 L/min(Oxygen) into nostril continuous. 4 LPM CONTINUOUS Flow, Continuous Use 1 Each 0 3 05/11/19 24 Discontinued predniSONE 20 MG Oral Tablet (Deltasone) Take 2 Tablets by mouth daily for 7 days, THEN 1.5 Tablets daily for 7 days, THEN 1 Tablet daily for 7 days, THEN 0.5 Tablets daily for 7 days, THEN 0.25 Tablets daily for 7 days. 37 Tablet 0 3 05/11/19 24 Discontinued predniSONE 10 MG Oral Tablet (Deltasone) Take 1 Tablet by mouth every other day for 180 doses. 90 Tablet 1 4 05/11/19 24 Discontinued Azithromycin 500 MG Oral Tablet (Zithromax) Take 1 Tablet by mouth in the morning for 5 days. Take each dose with meal.. 5 Tablet 0 4 05/11/19 24 Hospital, Clinic, or Other Facility Administered Medication Ordered Dose Route Frequency Start Date End Date Status Albuterol Sulfate (Proventil) (2.5 MG/3ML) 0.083% inhalation solution 2.5 mgIndications:IPF (idiopathic pulmonary fibrosis) ([facility]) 2.5 mg NEBULIZER PRN 12/05/2022 12/05/2023 Active Albuterol Sulfate (Proventil) (5 MG/ML) 0.5% *conc* inhalation solution 2.5 mgIndications:IPF (idiopathic pulmonary fibrosis) ([facility]) 2.5 mg NEBULIZER PRN 12/05/2022 05/11/2023 Discontin ued Benralizumab (Fasenra) prefilled syringe 30 mgIndications:Manasa re persistent asthma without complication 30 mg SC [id number] 12/20/2022 05/11/2023 Discontinued documented as of this encounter (statuses as of 05/12/2023) Active Problems Problem Noted Date Diagnosed Date [...] as of this encounter (statuses as of 05/12/2023) Resolved Problems Problem Noted Date Diagnosed Date Resolved Date Acute pulmonary edema 11/30/20222022 Bacteremia due to Staphylococcus epidermidis 12/10/2022 Multifocal pneumonia 11/26/2022 023 Severe persistent asthma with exacerbation 07/31/2022 12/10/2022 Severe obesity with body mas s index (BMI) of 35.0 to 39.9 with serious comorbidity 11/20/2021 documented as of this encounter (statuses as of 05/12/2023) Immunizations Name Administration Dates Next Due COVID-19 mRNA, LNP-s, No Pre serve, 2-Dose Series (Moderna) 04/26/2020,03/29/2020 COVID-19, LNP-s, No Preserve , Mir-sucrose, Ages 12+ (Validus-IVC) 01/08/2022 COVID-19, mRNA, LNP-s, PF, B ooster, [...] Sign Reading Time Taken Comments Blood Pressure 140/77 05/11/2023 7:30 AM EST Pulse 69 05/11/2023 10:31 AM EST Temperature 36.2 C (97.1 F) 05/11/2023 7:30 AM ES T Respiratory Rate 20 05/11/2023 10:3 1 AM EST Oxygen Saturation 96% 05/11/2023 10: 31 AM EST Inhaled Oxygen Concentration - - Weight 75.7 kg (166 lb 12.8 oz) 05/08/2023 9:38 PM EST Height 157.5 cm (5' 2") 05/08/2023 9:38 PM EST Body Mass Index 30.51 05/08/2023 9:38 PM EST documented in this encounter Functional [...] No 05/08/2023 documented as of this encounter Discharge Summaries * Irwin Gutierrez MD - 05/11/2023 9:58 AM EST Images from the original note were not included. [address] [address] Admission Date: 05/08/2023 Discharge Date: 05/11/2023 RECOMMENDED TO DO FOR NEXT PROVIDER(S): Ensure pulm and palliative med f/u Adjust diabetes regimen after prednisone increase F/u on family meeting tentatively scheduled for saturday at 1:30 pm REASON(S) FOR MEDICATION CHANGE(S): We increased prednisone to 20 mg daily DISPOSITION ON DISCHARGE: home Active Hospital Problems Diagnosis *Principal Diagnosis - Acute on chronic respiratory failure with hypoxia (HCC) Palliative care encounter Goals of care, counseling/discussion Dyspnea on minimal exertion Pulmonary hypertension (HCC) Interstitial lung disease (HCC) Obesity (BMI 30.0-34.9) Gastroesophageal reflux disease IPF (idiopathic pulmonary fibrosis) (HCC) HTN, goal below 130/80 Type 2 diabetes mellitus with hemoglobin A1c goal of less than 7.0% (HCC) Resolved Hospital Problems No resolved problems to display. ADMISSION HISTORY & PHYSICAL EXAM (focused): PRESENTING PROBLEM: worsening dyspnea on minimal exertion HPI: A 73 year-old female w/PMHx of HTN, DM, pulmonary HTN, DM2 GERD, interstitial lung disease, Persistent asthma, Chronic idiopathic pulmonary fibrosis/ILD on supplemental oxygen baseline O2 10L-12L NC @ 95%. Patient has noticed worsening shortness of breath starting at the end of last week with her pulse ox dropping as low at 50% while ambulating to her bathroom. Patient has been using her nebulizer treatments at home to help with her SOB. Patient sees a identification officer whom have been trying to ween patient down to a lower dose of oral prednisone currently at 10 mg every other day. Patient had started on Azithromycin on Saturday and once had a productive cough which has since subsided. Whilein the ED, staff attempted to ambulate patient 4 steps and she desaturated to 78% on 10L NC and while walking back, desaturated to 78%. Once at rest, her SPO2 returned to 94%. Patient uses a cane to walk to bathroom and has a walker if needed. ED course: CXR impression showed chronic interstitial lung disease with mainly peripheral interstitial thickening/fibrotic changes and diffuse bronchiectasis appears slightly more extensive than prior. A component of interstitial pneumonia can not be excluded. CT PE with contrast impression showed no evidence of central pulmonary embolism. Smaller peripheralpulmonary artery branches are not opacified well enough for comment. Chronic interstitial lung disease/interstitial fibrosis with scattered areas of subpleural honeycombing and diffuse bronchiectasis, similar to prior. Mild reactive mediastinal lymphadenopathy, stable. Moderate plaque in the aorta. Aberrant right subclavian artery. Hospital Medicine consulted and will admit patient for medical management acute on chronic respiratory failure with hypoxia. Physical Exam Most Recent Vital Signs: BP: 152 mmHg/78 mmHg (05/08/232010) Pulse: 97 (05/08/232010) Temp: 37.22 C (05/08/238) Temp Summary: Temp Min: 37.2 C (99 F) Max: 37.2 C (99 F) SpO2: 93 % (05/08/232010) O2 flow rate: 10 L/MIN (05/08/23 142) Supplemental O2 Delivery: Nasal Cannula (05/08/231427) General: Pt in bed, alert, dyspnea on exertion Head: Normocephalic, No masses, lesions, tenderness or abnormalities Eye Exam: PERRLA, EOMI, Conjunctiva are pink and non-injected, sclera clear Ears: External ears normal Oropharynx: mucous membranes moist without erythema or exudates Neck: supple, nontender, no cervical adenopathy palpable Heart: regular rate & rhythm and no murmur appreciated Lungs: tachypnea, CTA, without wheeze rhonchi, + fine crackles right lower lobe Abdomen: + BS, soft, nontender, nondistended, no rebound tenderness or guarding Assessment and Plan IMPRESSION/ASSESSMENT: Nicolasa Gomez, a 73 year-old female w/PMHx of HTN, DM, pulmonary HTN, DM2 GERD, interstitial lung disease, Persistent asthma, Chronic idiopathic pulmonary fibrosis/ILD on supplemental oxygen baseline O2 10L-12L NC @ 95% here with worsening dyspnea on exertion since this past Saturday. Principal Problem: Acute on chronic respiratory failure with hypoxia (HCC) Active Problems: HTN, goal below 130/80 Type 2 diabetes mellitus with hemoglobin A1c goal of less than 7.0% (HCC) IPF (idiopathic pulmonary fibrosis) (HCC) Gastroesophageal reflux disease Obesity (BMI 30.0-34.9) Interstitial lung disease (HCC) Pulmonary hypertension (HCC) Dyspnea on minimal exertion Resolved Problems: * No resolved hospital problems. * DIFFERENTIAL AND PLAN: Hospital Medicine consulted and will admit patient for medical management acute on chronic respiratory failure with hypoxia 2/2 IPF and interstitial lung disease. Plan Admit to med-surg -Pulmo consult -Increase methylprednisolone 40 mg IV daily (patient receive IV dose in ED) -Continue with HFNC and titrate as possible -Nebs PRN -Continue home meds ( to bring in Pirfednidone 801mg from home as it is not on formulary) -ISS HOSPITAL COURSE (focused): Patient admitted to a medical bed and observed. We consulted Pulmonary for further evaluation. Pulmonary recommended IV Solu-Medrol with a transitioned to oral prednisone. Patient feels better on a higher dose of prednisone and Pulmonary recommended a permanent dose of 20 mg daily. Patient and pulmonary underwent a shared decision-making mottle discussing the strengths and weaknesses of prednisone and felt that the long-term side effects of prednisone were negligible due to her shortened life expectancy. Patient's acute on chronic respiratory failure was likely due to acute exacerbation of asthma combined with progression over idiopathic pulmonary fibrosis. Per pulmonary's recommendations we consulted Palliative Medicine. Palliative Medicine confirmed the patient's full code status but patient is contemplating her goals of care as well as changing her code status. There is a family planfor Saturday at 1:30 a.m. that Palliative Medicine will follow-up on for further discussion of goals of care. Patient feels that she is back at her baseline oxygen requirement and feels ready to go home. Patient discharge per patient request. Operations & Procedures: none Complications: none applicable Significant Lab and Imaging Results: CT PULMONARY EMBOLUS W CONTRAST Result Date: [...] DOCUMENT HAS BEEN ELECTRONICALLY SIGNED BY YI SANCHEZ MD XR CHEST 2 VIEWS Result Date: 05/08/2023 IMPRESSION: Chronic interstitial lung disease with mainly peripheral interstitial thickening/fibrotic changes and diffuse bronchiectasis appears slightly more extensive than prior. A component of interstitial pneumonia can not be excluded. THIS DOCUMENT HAS BEEN ELECTRONICALLY SIGNED BY YI SANCHEZ MD Lab results within last 7 days (see chart for full results) Units 05/11/23 03105/10/23 0522 05/09/23 0456 HGB g/dL 9.4* 9.8* 10.1* HCT % 30.3* 30.9* 32.1* WBC K/uL 10.95* 10.93* 11.46* PLT K/uL 228 244 260 Lab results within last 7 days (see chart for full results) Units 05/11/23 03105/10/2352105/09/23 0456 Sodium mmol/L 143 142 140 Potassium mmol/L 3.9 3.7 4.2 Chloride mmol/L 105 106 105 CO2 mmol/L 25 24 24 BUN mg/dL 32* 34* 26* Creatinine mg/dL 0.9 0.9 0.9 Results Pending at Discharge: Lab Results Pending at Discharge: None MEDICATION UPDATES AT DISCHARGE CONTINUE taking these medications but follow up with your Primary Care Physician (PCP). INSTRUCTIONS albuterol-ipratropium 2.5-0.5 MG/3ML nebulizer solution Commonly known as: Duoneb Notes to patient: Used to ease breathing Rinse mouth after use Inhale 3 mL via nebulizer every 6 hours as needed. atorvaSTATin 10 MG Tablet Commonly known as: Lipitor Notes to patient: Used to lower bad cholesterol, lower triglycerides, raise good cholesterol (HDL),and slow the progression of heart disease TAKE 1 TABLET BY MOUTH IN THE MORNING. Azithromycin 500 MG Tablet Commonly known as: Zithromax Notes to patient: antibiotic Take 1 Tablet by mouth in the morning for 5 days. Take each dose with meal.. Breztri Aerosphere 160-9-4.8 MCG/ACT Aero Generic drug: Roahjoa-Mrjhtfnsihy-Furblihxoe Notes to patient: Used to treat COPD (chronic obstructive pulmonary disease). This drug is not to be used to treat intense flare-ups of shortness of breath. Use a rescue inhaler. Be sure to rinse mouth after use Inhale 2 Puffs by mouth in the morning and 2 Puffs in the evening. Empagliflozin 10 MG Tabs Commonly known as: Jardiance Notes to patient: Used to control high blood sugar in those with type 2 diabetes Take 1 Tablet by mouth in the morning. Fasenra 30 MG/ML Sosy Generic drug: Benralizumab Notes to patient: Used to treat asthma Inject 1 mL under the skin Every Month. Every 4 weeks Loratadine 10 MG Tablet Commonly known as: Claritin Notes to patient: Used to ease allergy signs and to treat hives Take 1 Tablet by mouth in the morning. losartan 50 MG Tablet Commonly known as: Cozaar Notes to patient: Used to treat high blood pressure, protect kidney function in patients with diabetes who have protein loss, and lower the chance of stroke in people with high blood pressure and a heart problem called left ventricular hypertrophy Take 0.5 Tablets by mouth every evening. Restart 03/26/2023-has at home metFORMIN ER 500 MG Tb24 Commonly known as: Glucophage XR Notes to patient: Used to lower blood sugar in patients with high blood sugar (diabetes) Take 2 Tablets by mouth daily with dinner. (Restart 1 tab 01/18/2023) inc 2 tabs 01/30/2023, inc 3 tabs 03/26/2023 multivitamin Tablet Notes to patient: supplement Take 1 Tablet by mouth in the morning. Omeprazole 20 MG Tbec Notes to patient: Used to treat or prevent GI (gastrointestinal) ulcers, gastroesophageal reflux (GERD, acid reflux), and heartburn Take 1 Tablet by mouth in the morning. oxygen Gas Ask about: Should I take this medication? Notes to patient: Used to ease shortness of breath and promote oxygenation Administer 4 L/min(Oxygen) into nostril continuous. 4 LPM CONTINUOUS Flow, Continuous Use oxygen Gas 6 lpm during the day and 4 lpm at bedtime, titrate to 10-15 liters on exertion to keep saturation >90% since hosp DC Pirfenidone 801 MG Tabs Commonly known as: Esbriet Notes to patient: Used to treat idiopathic pulmonary fibrosis Take 801 mg by mouth in the morning and 801 mg at noon and 801 mg before bedtime. one pill three times a day. * predniSONE 20 MG Tabs Tablet Commonly known as: Deltasone Start taking on: 2023 Ask about: Should I take this medication? Notes to patient: Used for many health problems like allergy signs, asthma, adrenal gland problems,blood problems, skin rashes, or swelling problems Take 2 Tablets by mouth daily for 7 days, THEN 1.5 Tablets daily for 7 days, THEN 1 Tablet daily for 7 days, THEN 0.5 Tablets daily for 7 days, THEN 0.25 Tablets daily for 7 days. * predniSONE 10 MG Tabs Tablet Commonly known as: Deltasone Notes to patient: Used for many health problems like allergy signs, asthma, adrenal gland problems,blood problems, skin rashes, or swelling problems Take 1 Tablet by mouth every other day for 180 doses. Probiotic Acidophilus Caps Notes to patient: Ussed as a probiotic to promote the growth of good bacteria in your body. 2 daily repaGLINide 0.5 MG Tablet Commonly known as: Prandin Notes to patient: Used to lower blood sugar in patients with high blood sugar (diabetes) Take 1 Tablet by mouth in the morning and 1 Tablet at noon and 1 Tablet in the evening. Take beforemeals. If sugar >140 (using temporarily as holding metformin due to gfr 33 with diuretic use, STOP torsemide and potassium), stat lab 12/28/22. * This list has 2 medication(s) that are the same as other medications prescribed for you. Read thedirections carefully, and ask your doctor or other care provider to review them with you. SCHEDULED FOLLOW-UP: Future Appointments Appt Date/Time Provider Department 05/14/2023 9:00 AM Jamison Pft Pulmonary Function Lab, [facility] [place] 05/15/2023 4:00 PM Rizwana Antunez MD General Internal Medicine [facility] 06/13/2023 1:00 PM Gianfranco Nurse Pulmonary Pulmonary Medicine, [facility] [place] 06/20/2023 10:00 AM Denzel Gunn [facility] Laboratory [facility] 06/25/2023 1:20 PM Rizwana Antunez MD General Internal Medicine [facility] 07/25/2023 1:30 PM Ni Kay PA-C Cardiology, [facility] [place] 07/29/2023 10:00 [address]1 [facility] Radiology [address] 12/02/2023 11:00 AM [facility] Radiology, [facility] 04/02/2024 1:00 PM [id number] [facility] Radiology [facility] [place] Other Information Indwelling Devices: LINES ALL Duration Peripheral Line Left Antecubital 20 Gauge 2 days Vital Signs (last recorded): Most Recent Systolic BP: 140 mmHg (05/11/23729) Most Recent Diastolic BP: 77 mmHg (05/11/23729) Pulse: 65 (05/11/23828) Resp: 20 (05/11/23828) Most Recent Temperature: 36.17 C (05/11/23729) Weight: 75.7 kg (166 lb 12.8 oz) (05/08/232137) SpO2: 98 % (05/11/23828) O2 flow rate: 10 L/MIN (05/11/23828) Allergies: Lisinopril Activity: as tolerated Diet: Orders Placed This Encounter Procedures Heart Healthy Diet : Sodium: 2 gm --- Fluid Restriction (ml): None Code Status: Full Code Condition on Discharge: stable Isolation status: None Cognition: normal HOSPITAL CONSULTS ORDERED: THORACIC MEDICINE / PULMONOLOGY CONSULT IP PALLIATIVE MEDICINE CONSULT IP REFERRING PHYSICIAN: Ref: [id number]] NO STRE[address] ADDRESS AVAILABLE None (office) None (fax) PRIMARY CARE PROVIDER: PCP: Rizwana Antunez MD [address] [place] [address] / [place] [address] (office) [phone] (fax) Note: To contact a physician responsible for this patients hospital care, please call [facility] [phone]. I spent a total of 37 minutes coordinating, documenting, and providing care for this patient excluding time spent in the performance of separately billed services. documented in this encounter Discharge Instructions * Appointments* Gabriela Cornell NA/FLOYD - 05/11/2023 9:40 AM EST (Pulmonology) [phone] [address] OFFICE WILL CALL YOU WITH AN APPOINTMENT, IF YOU DO NOT RECEIVE A CALL PLEASE CALL THEIR OFFICE. ISIDRA Mancera/LIANE 05/11/2023 9:40 AM * Discharge Instr - AVS* Irwin Gutierrez MD - 05/11/2023 9:58 AM EST Discharge Date: 05/11/2023 The information below provides you with the instructions and the list of medications you need to betaking following discharge from the hospital. If you have any questions, please ask before leaving. If you have questions after leaving, you can reach us at the numbers below. YOUR HOSPITAL PROVIDERS: Discharging Provider: Irwin Gutierrez MD Provider Department: Hospital Medicine To reach this Provider Saturday through Saturday (8:00 AM to 4:30 PM) for any questions or test results: Call [phone] For after-hours concerns: Call [phone] and have your provider paged, or the provider motion picture narrator for the Department of Hospital Medicine paged. Please note, the discharging provider will not be able to provide you with any medications refills.Please discuss these with your primary care provider. Worsening Symptoms: If you have new symptoms, or your symptoms get worse, please contact your Discharge Provider or Primary Care Provider (PCP). If these providers are not available, you can go to your local [facility] or [facility] Care Clinic during their business hours. In an EMERGENCY situation: Call [phone] or go to the nearest emergency room. A BRIEF SUMMARY OF YOUR HOSPITAL STAY: You came to the hospital with: complaint of SOB Your main diagnosis at discharge was: asthma exacerbation, interstitial lung disease Operations & Procedures performed: none Complications: none applicable Inpatient test results that are pending at discharge: none Advance Directive Documented: Advance Directive Does the Patient have an Advance Directive? Yes YOUR FOLLOW UP APPOINTMENTS: Primary Care Provider Information: PCP: Rizwana Antunez MD [facility] [address] / [place] [address] (office) [phone] (fax) An appointment was requested with your PCP (Rizwana Antunez MD) within 3 days. (Please take this form to this visit with your primary care physician.) You need the following studies in the future: none INSTRUCTIONS: Diet: Orders Placed This Encounter Procedures Heart Healthy Diet : Sodium: 2 gm --- Fluid Restriction (ml): None Activity: No restrictions and As tolerated Additional Instructions: - Call your primary care physician or seek medical attention if your symptoms worsen. documented in this encounter Progress Notes * Irwin Gutierrez MD - 05/10/2023 2:57 PM EST Images from the original note were not included. [facility] 3B-3023/D INTERVAL HISTORY: 73 yo Female with Idiopathic Pulmonary fibrosis on Pirfenidone, Severe persistent allergic asthma on Fasenra, Chronic Hypoxic respiratory failure on home oxygen 10L at rest and 12L with ambulation currently on chronic steroids prednisone 10 mg QOD p/w Increasing shortness of breath x 1 week admitted for acute on chronic resp failure with hypoxia likely d/t asthma exacerbation with worsening underlying ILD. Sob persists Some fatigue On 10L via NC No chest pain Objective Physical Exam Most Recent Vital Signs: BP: 137 mmHg/77 mmHg (05/10/23 1200) Pulse: 120 (05/10/23 1429) Temp: 36.22 C (05/10/23 1200) Temp Summary: Temp Min: 36 C (96.8 F) Max: 36.6 C (97.9 F) SpO2: 97 % (05/10/23 1429) O2 flow rate: 10 L/MIN (05/10/23 142) Supplemental O2 Delivery: Intermediate Nasal Cannula (05/10/23 1429) Physical Exam Vitals and nursing note reviewed. Exam conducted with a dross puller present. Constitutional: General: She is not in acute distress. Appearance: Normal appearance. Cardiovascular: Rate and Rhythm: Normal rate and regular rhythm. Pulses: Normal pulses. Heart sounds: Normal heart sounds. No murmur heard. No friction rub. No gallop. Pulmonary: Effort: Pulmonary effort is normal. No respiratory distress. Breath sounds: Decreased breath sounds present. No wheezing, rhonchi or rales. Comments: Scattered crackles Abdominal: General: Abdomen is flat. Bowel sounds are normal. Palpations: Abdomen is soft. Musculoskeletal: Right lower leg: No edema. Left lower leg: No edema. Skin: General: Skin is warm and dry. Capillary Refill: Capillary refill takes less than 2 seconds. Neurological: General: No focal deficit present. Mental Status: She is alert and oriented to person, place, and time. Peripheral Line Left Antecubital 20 Gauge (Active) Number of days: 2 STUDIES: Encounter Orders Labs and other studies reviewed with pertinent findings noted below: CT PULMONARY EMBOLUS W CONTRAST Result Date: [...] DOCUMENT HAS BEEN ELECTRONICALLY SIGNED BY YI SANCHEZ MD XR CHEST 2 VIEWS Result Date: 05/08/2023 IMPRESSION: Chronic interstitial lung disease with mainly peripheral interstitial thickening/fibrotic changes and diffuse bronchiectasis appears slightly more extensive than prior. A component of interstitial pneumonia can not be excluded. THIS DOCUMENT HAS BEEN ELECTRONICALLY SIGNED BY YI SANCHEZ MD Lab results within last 7 days (see chart for full results) Units 05/10/23 0522 05/09/23 0456 05/08/23 1510 HGB g/dL 9.8* 10.1* 11.3* HCT % 30.9* 32.1* 36.6 WBC K/uL 10.93* 11.46* 12.02* PLT K/uL 244 260 271 Lab results within last 7 days (see chart for full results) Units 05/10/23 0522 05/09/23 0456 05/08/23 1510 Sodium mmol/L 142 140 138 Potassium mmol/L 3.7 4.2 4.5 Chloride mmol/L 106 105 103 CO2 mmol/L 24 24 22 BUN mg/dL 34* 26* 25* Creatinine mg/dL 0.9 0.9 0.9 Assessment and Plan IMPRESSION : Principal Problem: Acute on chronic respiratory failure with hypoxia (HCC) Active Problems: HTN, goal below 130/80 Type 2 diabetes mellitus with hemoglobin A1c goal of less than 7.0% (HCC) IPF (idiopathic pulmonary fibrosis) (HCC) Gastroesophageal reflux disease Obesity (BMI 30.0-34.9) Interstitial lung disease (HCC) Pulmonary hypertension (HCC) Dyspnea on minimal exertion Palliative care encounter Goals of care, counseling/discussion Resolved Problems: * No resolved hospital problems. * DIFFERENTIAL AND PLAN: 73 yo Female with Idiopathic Pulmonary fibrosis on Pirfenidone, Severe persistent allergic asthma on Fasenra, Chronic Hypoxic respiratory failure on home oxygen 10L at rest and 12L with ambulation currently on chronic steroids prednisone 10 mg QOD p/w Increasing shortness of breath x 1 week admitted for acute on chronic resp failure with hypoxia likely d/t asthma exacerbation with worsening underlying ILD. Pulm help appreciated Palliative med consult Solumedrol 40 mg daily for a total of 5 days, then pred 20 mg daily indefinitely. Amb pulse ox at d/c with oxymizer Cont current meds [START ON 05/11/2023] home medication stored in pharmacy albuterol-ipratropium (Duoneb) inhalation solution 3 mL atorvaSTATin (Lipitor) tab 10 mg Enoxaparin (Lovenox) inj 40 mg Xvmbfojfdts-Oifaqqjzwlbe-Zxxfeaxcjg (Trelegy Ellipta) 200-62.5-25 MCG/ACT inhaler 1 Puff losartan (Cozaar) tab 25 mg methylPREDNISolone sodium succ (SOLU-Medrol) inj 40 mg multivitamin (Mvi) 1 Tablet omeprazole (PriLOSEC) cap 20 mg oxygen GAS sodium chloride 0.9 % flush/inj 3 mL PHARMACOLOGIC VTE PROPHYLAXIS: Enoxaparin CODE STATUS: Full Code EXPECTED DISCHARGE DATE: 05/11/2023 * Irwin Gutierrez MD - 05/09/2023 12:39 PM EST Images from the original note were not included. [facility] 3B-3023/D INTERVAL HISTORY: 73 yo Female with Idiopathic Pulmonary fibrosis on Pirfenidone, Severe persistent allergic asthma on Fasenra, Chronic Hypoxic respiratory failure on home oxygen 10L at rest and 12L with ambulation currently on chronic steroids prednisone 10 mg QOD p/w Increasing shortness of breath x 1 week admitted for acute on chronic resp failure with hypoxia likely d/t asthma exacerbation with worsening underlying ILD. Sob persists Some fatigue Pt is scheduled to see palliative as an outpt. Objective Physical Exam Most Recent Vital Signs: BP: 141 mmHg/84 mmHg (05/09/23 1134) Pulse: 89 (05/09/23 1134) Temp: 36.61 C (05/09/23 1134) Temp Summary: Temp Min: 36 C (96.8 F) Max: 37.2 C (99 F) SpO2: 90 % (05/09/23 1134) O2 flow rate: 10 L/MIN (05/09/23 1134) Supplemental O2 Delivery: Intermediate Nasal Cannula (05/09/23 113) Physical Exam Vitals and nursing note reviewed. Exam conducted with a dross puller present. Constitutional: General: She is not in acute distress. Appearance: Normal appearance. Cardiovascular: Rate and Rhythm: Normal rate and regular rhythm. Pulses: Normal pulses. Heart sounds: Normal heart sounds. No murmur heard. No friction rub. No gallop. Pulmonary: Effort: Pulmonary effort is normal. No respiratory distress. Breath sounds: Decreased breath sounds present. No wheezing, rhonchi or rales. Comments: Scattered crackles Abdominal: General: Abdomen is flat. Bowel sounds are normal. Palpations: Abdomen is soft. Musculoskeletal: Right lower leg: No edema. Left lower leg: No edema. Skin: General: Skin is warm and dry. Capillary Refill: Capillary refill takes less than 2 seconds. Neurological: General: No focal deficit present. Mental Status: She is alert and oriented to person, place, and time. Peripheral Line Left Antecubital 20 Gauge (Active) Number of days: 1 STUDIES: Encounter Orders Labs and other studies reviewed with pertinent findings noted below: CT PULMONARY EMBOLUS W CONTRAST Result Date: [...] DOCUMENT HAS BEEN ELECTRONICALLY SIGNED BY YI SANCHEZ MD XR CHEST 2 VIEWS Result Date: 05/08/2023 IMPRESSION: Chronic interstitial lung disease with mainly peripheral interstitial thickening/fibrotic changes and diffuse bronchiectasis appears slightly more extensive than prior. A component of interstitial pneumonia can not be excluded. THIS DOCUMENT HAS BEEN ELECTRONICALLY SIGNED BY YI SANCHEZ MD Lab results within last 7 days (see chart for full results) Units 05/09/23 0456 05/08/23 1510 HGB g/dL 10.1* 11.3* HCT % 32.1* 36.6 WBC K/uL 11.46* 12.02* PLT K/uL 260 271 Lab results within last 7 days (see chart for full results) Units 05/09/23 0456 05/08/23 1510 Sodium mmol/L 140 138 Potassium mmol/L 4.2 4.5 Chloride mmol/L 105 103 CO2 mmol/L 24 22 BUN mg/dL 26* 25* Creatinine mg/dL 0.9 0.9 Assessment and Plan IMPRESSION : Principal Problem: Acute on chronic respiratory failure with hypoxia (HCC) Active Problems: HTN, goal below 130/80 Type 2 diabetes mellitus with hemoglobin A1c goal of less than 7.0% (HCC) IPF (idiopathic pulmonary fibrosis) (HCC) Gastroesophageal reflux disease Obesity (BMI 30.0-34.9) Interstitial lung disease (HCC) Pulmonary hypertension (HCC) Dyspnea on minimal exertion Resolved Problems: * No resolved hospital problems. * DIFFERENTIAL AND PLAN: 73 yo Female with Idiopathic Pulmonary fibrosis on Pirfenidone, Severe persistent allergic asthma on Fasenra, Chronic Hypoxic respiratory failure on home oxygen 10L at rest and 12L with ambulation currently on chronic steroids prednisone 10 mg QOD p/w Increasing shortness of breath x 1 week admitted for acute on chronic resp failure with hypoxia likely d/t asthma exacerbation with worsening underlying ILD. Pulm help appreciated Palliative med consult Solumedrol 40 mg daily for a total of 5 days, then pred 20 mg daily indefinitely. Amb pulse ox at d/c with oxymizer Cont current meds albuterol-ipratropium (Duoneb) inhalation solution 3 mL atorvaSTATin (Lipitor) tab 10 mg Enoxaparin (Lovenox) inj 40 mg Ajoxenwxzwi-Sywroyahnohh-Opyfbjcbwm (Trelegy Ellipta) 200-62.5-25 MCG/ACT inhaler 1 Puff losartan (Cozaar) tab 25 mg methylPREDNISolone sodium succ (SOLU-Medrol) inj 40 mg multivitamin (Mvi) 1 Tablet omeprazole (PriLOSEC) cap 20 mg oxygen GAS sodium chloride 0.9 % flush/inj 3 mL PHARMACOLOGIC VTE PROPHYLAXIS: Enoxaparin CODE STATUS: Full Code EXPECTED DISCHARGE DATE: 05/11/2023 I spent a total of 52 minutes coordinating, documenting, and providing care for this patient excluding time spent in the performance of separately billed services. documented in this encounter H&P Notes * Jaky Mason CRNP - 05/08/2023 8:47 PM EST Images from the original note were not included. [facility] PRESENTING PROBLEM: worsening dyspnea on minimal exertion HPI: A 73 year-old female w/PMHx of HTN, DM, pulmonary HTN, DM2 GERD, interstitial lung disease, Persistent asthma, Chronic idiopathic pulmonary fibrosis/ILD on supplemental oxygen baseline O2 10L-12L NC @ 95%. Patient has noticed worsening shortness of breath starting at the end of last week with her pulse ox dropping as low at 50% while ambulating to her bathroom. Patient has been using her nebulizer treatments at home to help with her SOB. Patient sees a identification officer whom have been trying to ween patient down to a lower dose of oral prednisone currently at 10 mg every other day. Patient had started on Azithromycin on Saturday and once had a productive cough which has since subsided. Whilein the ED, staff attempted to ambulate patient 4 steps and she desaturated to 78% on 10L NC and while walking back, desaturated to 78%. Once at rest, her SPO2 returned to 94%. Patient uses a cane to walk to bathroom and has a walker if needed. ED course: CXR impression showed chronic interstitial lung disease with mainly peripheral interstitial thickening/fibrotic changes and diffuse bronchiectasis appears slightly more extensive than prior. A component of interstitial pneumonia can not be excluded. CT PE with contrast impression showed no evidence of central pulmonary embolism. Smaller peripheralpulmonary artery branches are not opacified well enough for comment. Chronic interstitial lung disease/interstitial fibrosis with scattered areas of subpleural honeycombing and diffuse bronchiectasis, similar to prior. Mild reactive mediastinal lymphadenopathy, stable. Moderate plaque in the aorta. Aberrant right subclavian artery. Hospital Medicine consulted and will admit patient for medical management acute on chronic respiratory failure with hypoxia. Subjective Patient's past history, medications, and allergies were reviewed. Objective Physical Exam Most Recent Vital Signs: BP: 152 mmHg/78 mmHg (05/08/232010) Pulse: 97 (05/08/232010) Temp: 37.22 C (05/08/23 1428) Temp Summary: Temp Min: 37.2 C (99 F) Max: 37.2 C (99 F) SpO2: 93 % (05/08/232010) O2 flow rate: 10 L/MIN (05/08/231427) Supplemental O2 Delivery: Nasal Cannula (05/08/231427) General: Pt in bed, alert, dyspnea on exertion Head: Normocephalic, No masses, lesions, tenderness or abnormalities Eye Exam: PERRLA, EOMI, Conjunctiva are pink and non-injected, sclera clear Ears: External ears normal Oropharynx: mucous membranes moist without erythema or exudates Neck: supple, nontender, no cervical adenopathy palpable Heart: regular rate & rhythm and no murmur appreciated Lungs: tachypnea, CTA, without wheeze rhonchi, + fine crackles right lower lobe Abdomen: + BS, soft, nontender, nondistended, no rebound tenderness or guarding Lower Extremities: without pitting edema, no calf tenderness, no stasis changes noted STUDIES: Encounter Orders Labs and other studies reviewed personally myself with pertinent findings noted below: Results for orders placed or performed during the hospital encounter of 05/08/23 COMPREHENSIVE METABOLIC PANEL Result Value Ref Range BUN 25 (H) 6 - 20 mg/dL Creatinine 0.9 0.5 - 1.0 mg/dL Estimated Glomerular Filtration Rate 68 >=60 mL/min Sodium 138 135 - 146 mmol/L Potassium 4.5 3.5 - 5.1 mmol/L Chloride 103 98 - 107 mmol/L CO2 22 22 - 32 mmol/L Anion Gap 13 7 - 15 mmol/L Glucose 175 (H) 70 - 120 mg/dL Albumin 3.6 (L) 3.8 - 5.0 g/dL AST 19 10 - 35 U/L Alkaline Phosphatase 61 35 - 130 U/L Bilirubin, Total 0.2 <=1.2 mg/dL Calcium 9.7 8.4 - 10.2 mg/dL Protein 7.9 6.0 - 8.3 g/dL ALT 10 10 - 35 U/L BNP, NT-PRO Result Value Ref Range BNP, NT-Pro 187 <300 pg/mL TROPONIN T, HIGH SENSITIVITY Result Value Ref Range Troponin T, High Sensitivity 12 <=14 ng/L PT INR Result Value Ref Range Prothrombin Time 14.1 11.6 - 15.2 seconds INR 1.1 0.8 - 1.2 RESPIRATORY PATHOGEN PANEL, PCR Result Value Ref Range Adenovirus by PCR Negative Negative Coronavirus 229E by PCR Negative Negative Coronavirus HKU1 by PCR Negative Negative Coronavirus NL63 by PCR Negative Negative Coronavirus OC43 by PCR Negative Negative Coronavirus SARS-CoV-2 by PCR Negative Negative Human Metapneumovirus by PCR Negative Negative Rhinovirus/Enterovirus by PCR Negative Negative Influenza A Virus by PCR Negative Negative Influenza B Virus by PCR Negative Negative Parainfluenza Virus 1 by PCR Negative Negative Parainfluenza Virus 2 by PCR Negative Negative Parainfluenza Virus 3 by PCR Negative Negative Parainfluenza Virus 4 by PCR Negative Negative Respiratory Syncytial Virus by PCR Negative Negative Bordetella pertussis by PCR Negative Negative Chlamydia pneumoniae by PCR Negative Negative Mycoplasma pneumoniae by PCR Negative Negative Bordetella parapertussis by PCR Negative Negative CBC Result Value Ref Range WBC 12.02 (H) 4.00 - 10.80 K/uL RBC 4.00 3.85 - 5.15 M/uL HGB 11.3 (L) 12.0 - 15.3 g/dL HCT 36.6 36.0 - 45.2 % MCV 91.5 81.5 - 97.5 fL MCH 28.3 27.0 - 34.0 pg MCHC 30.9 32.0 - 36.0 g/dL RDW 15.5 11.5 - 15.5 % PLT 271 140 - 400 K/uL MPV 10.6 6.6 - 11.1 fL nRBCs 0 <=0 /100 WBCs DIFFERENTIAL, AUTOMATED Result Value Ref Range WBC 12.02 (H) 4.00 - 10.80 K/uL Neutrophils % 89.2 (H) 40.0 - 75.0 % Lymphocytes % 7.3 (L) 18.0 - 42.0 % Monocytes % 3.0 1.0 - 11.0 % Eosinophils % 0.0 0.0 - 6.0 % Basophils % 0.1 0.0 - 2.0 % Immature Granulocytes % 0.4 0.0 - 2.0 % Absolute Neutrophils 10.72 (H) 1.80 - 7.70 K/uL Absolute Lymphocytes 0.88 (L) 1.00 - 4.80 K/ul Absolute Monocytes 0.36 0.00 - 1.10 K/uL Absolute Eosinophils 0.00 0.00 - 0.70 K/uL Absolute Basophils 0.01 0.00 - 0.20 K/uL Absolute Immature Granulocytes 0.05 0.00 - 0.20 K/uL PROCALCITONIN Result Value Ref Range Procalcitonin 0.08 <0.10 ng/mL BLOOD GAS, VENOUS Result Value Ref Range Temperature 37.0 C pH, Venous 7.365 7.320 - 7.430 units pCO2, Venous 46.2 40.0 - 60.0 mmHg pO2, Venous 18.0 (L) 25.0 - 50.0 mmHg Base Excess, Venous 0.7 -2.0 - 2.0 mmol/L Hemoglobin, Whole Blood 11.6 (L) 12.0 - 15.3 g/dL Oxyhemoglobin, Venous 19.7 (L) 40.0 - 85.0 % total Hgb Carboxyhemoglobin, Whole Blood 0.6 <=1.5 % total Hgb Methemoglobin, Whole Blood 0.7 <=1.5 % total Hgb Reduced Hemoglobin, Venous 79.0 % total Hgb O2 Content, Venous 3.2 (L) 7.0 - 18.0 %vol Bicarbonate, Whole Blood 25.8 23.0 - 31.0 mmol/L CT PULMONARY EMBOLUS W CONTRAST Final Result PROCEDURE INFORMATION: Exam: CTA Chest With Contrast Exam date and time: 05/08/2023 4:22 PM Age: 73 years old Clinical indication: Other: Pulmonary embolism; Wells score < 2; D-dimer not done; Not ; Perc positive (score >= 1); Additional info: Pulmonary embolism; Wells score < 2; D-dimer not done; Not ; Perc positive (score >= 1) TECHNIQUE: Imaging protocol: Computed tomographic angiography of the chest with contrast. Exam focused on the arteries. 3D rendering (Not supervised by radiologist): MIP and/or 3D reconstructed images were created by the technologist. Radiation optimization: All CT scans at this facility use at least one of these dose optimization techniques: automated exposure control; mA and/or kV adjustment per patient size (includes targeted exams where dose is matched to clinical indication); or iterative reconstruction. Contrast material: OPTI 320; Contrast volume: 100 ml; Contrast route: INTRAVENOUS (IV); COMPARISON: CT PULMONARY EMBOLUS W CONTRAST 11/26/2022 6:43 PM FINDINGS: Pulmonary arteries: No filling defects suspicious [...] DOCUMENT HAS BEEN ELECTRONICALLY SIGNED BY YI SANCHEZ MD XR CHEST 2 VIEWS Final Result PROCEDURE INFORMATION: Exam: XR Chest Exam date and time: 05/08/2023 [...] DOCUMENT HAS BEEN ELECTRONICALLY SIGNED BY YI SANCHEZ MD EKG 05/08/23 RATE : 92 BPM Qtc: 410 My interpretation of this EKG is Sinus Rhythm with no ST changes noted. Assessment and Plan IMPRESSION/ASSESSMENT: Nicolasa Gomez, a 73 year-old female w/PMHx of HTN, DM, pulmonary HTN, DM2 GERD, interstitial lung disease, Persistent asthma, Chronic idiopathic pulmonary fibrosis/ILD on supplemental oxygen baseline O2 10L-12L NC @ 95% here with worsening dyspnea on exertion since this past Saturday. Principal Problem: Acute on chronic respiratory failure with hypoxia (HCC) Active Problems: HTN, goal below 130/80 Type 2 diabetes mellitus with hemoglobin A1c goal of less than 7.0% (HCC) IPF (idiopathic pulmonary fibrosis) (HCC) Gastroesophageal reflux disease Obesity (BMI 30.0-34.9) Interstitial lung disease (HCC) Pulmonary hypertension (HCC) Dyspnea on minimal exertion Resolved Problems: * No resolved hospital problems. * DIFFERENTIAL AND PLAN: Hospital Medicine consulted and will admit patient for medical management acute on chronic respiratory failure with hypoxia 2/2 IPF and interstitial lung disease. Plan Admit to med-surg -Pulmo consult -Increase methylprednisolone 40 mg IV daily (patient receive IV dose in ED) -Continue with HFNC and titrate as possible -Nebs PRN -Continue home meds ( to bring in Pirfednidone 801mg from home as it is not on formulary) -ISS PHARMACOLOGIC VTE PROPHYLAXIS:Enoxaparin CODE STATUS: Full Code EXPECTED DISCHARGE DATE: 05/11/2023 I spent a total of 70 minutes coordinating, documenting, and providing care for this patient excluding time spent in the performance of separately billed services. Case and treatment plan discussed with my attending, Dr. Goldsmith. JOSEPH Anderson Associated attestation - Eugene Goldsmith MD - 05/08/2023 9:21 PM EST I have reviewed the advanced practitioner's documentation on the date of service referenced in note, and I agree with, and take responsibility for the plan of care. 73 yo Female with Idiopathic Pulmonary fibrosis on Pirfenidone, Severe persistent allergic asthma on Fasenra, Chronic Hypoxic respiratory failure on home oxygen 10L at rest and 12L with ambulation currently on chronic steroids prednisone 10 mg QOD p/w Increasing shortness of breath x 1 week Labs: Pro-calcitonin normal. CTPE study: negative for PE: Chronic interstitial lung disease/interstitial fibrosis with scatteredareas of subpleural honeycombing and diffuse bronchiectasis. Mild reactive Mediastinal lymphadenopathy, stable. - Start Methylprednisolone 40 mg daily - Nebs QID - Thoracic Medicine consult - Flutter/ IS - Sliding scale Insulin Time spent: 75 Mins. More than half with patient and remaining time for reviewing labs, medial records, coordination of care with nurses and specialities. Ellis elements of the counseling and coordination of care included detail of treatment plan w/ pt and caregivers, content of pt and/or family discu ssions, ellis tests or procedures reviewed/ordered in [facility] rec, outcomes of discussions with other healthcare providers documented in this encounter Consult Notes * Mary Arredondo CRNP - 05/09/2023 3:47 PM ESTAssociated Order(s): PALLIATIVE MEDICINE CONSULT IP Palliative Medicine Inpatient Consult Note [facility] [id number] Name: Nicolasa Gomez Location: [facility] 3B-3023/D Date: 05/09/2023 Time: 3:47 PM Requesting Service General Internal Medicine Reason for Consult: Goals of care and symptom management HPI: Nicolasa Gomez is a 73 year old female who was admitted 05/08/2023 for exacerbation of idiopathic pulmonary fibrosis, with underlying diagnosis of severe IPF, severe asthma, chronic hypoxic respiratory failure on 10L at rest, 12L with activity, on chronic prednisone, and not a candidate for lung transplant. Patient presented with worsening SOB for one week, which started just a couple weeks after being tapered off her prednisone. She is known to palliative medicine, as we saw her in consult in January 2023. At that time, she was pursuing the possibility of lung transplant. She now knowsshe is not a candidate. She was scheduled to see palliative medicine at [facility] yesterday, but she ended up admitted to the hospital. I saw patient this afternoon along with Nick Almazan PA-C. Patient is awake, alert and oriented x4. She is very pleasant and talkative. She recalls meeting me in the past and agrees to discuss with us again now. Patient's main goal is to enjoy the time she has left in her life and said, "I understand that my end may be coming sooner than later." Patient talked for quite some time about her family and loved ones, as well as life experiences. We talked about the 3 pathways of healthcare, patient feels she is likely "middle of the road," meaning she wants treatment in the hospital when necessary, but does not want the most aggressive treatment. At the same time, she said she'd be okay with VERY short-term intubation (a few days max). We talked about the difficulty surrounding that, as she has very sick lungs and there is no guarantee it would be short-term or helpful. We also talked separately about CPR in the event of cardiac arrest. She plans to think about it more and talk with family. She is requesting a family meeting. Past Medical History: Diagnosis Date Asthma Chronic respiratory failure (HCC) Diabetes mellitus (HCC) Environmental and seasonal allergies 01/29/2022 Gastroesophageal reflux disease 01/29/2022 HTN, goal below 130/80 11/20/2021 IPF (idiopathic pulmonary fibrosis) (HCC) Obesity (BMI 30.0-34.9) 01/29/2022 Pulmonary arterial hypertension (HCC) Past Surgical History: Procedure Laterality Date CATARACT SURGERY,COMPLEX LAP;W/HYSTERECTOMY PARTIAL HYSTERECTOMY Bilateral Ovaries remain REMOVE CATARACT, INSERT LENS PROSTH Bilateral 2013 Family History Problem Relation Age of Onset Leukemia Mother 69 Prostate cancer Father 75 Other (Other) Father surgical complications Diabetes Sister Diabetes Brother Prostate cancer Brother Diabetes Sister Osteoporosis Sister Breast Cancer Sister Hypertension Sister Family Status Relation Status Mo Fa Sis Alive Bro Alive Sis Alive Sis Alive Sis Alive Social History Socioeconomic History Marital status: Tobacco [...] Food in the Last Year: Never true Relevant Medications: Current medication list reviewed. Allergies: Lisinopril PHYSICAL EXAMINATION: Constitutional: BP 125/70 | Pulse 78 | Temp 36.6 C (97.9 F) (Temporal Artery) | Resp 17 | Ht 1.575 m (5' 2") | Wt 75.7 kg (166 lb 12.8 oz) | SpO2 96% | BMI 30.51 kg/m | BSA 1.82 m , no acute distress HENT: normocephalic, atraumatic. Eyes: anicteric, sclera and conjunctiva normal. Chest: normal respiratory effort at rest, some dyspnea with conversation Neuro: awake, alert, and oriented x4 Data Review: External notes reviewed: Reviewed notes from hospitalist 05/09/23 as well as pulmonary 05/09/23, and information learned includes patient has severe, incurable disease. Lab / Imaging Results: blood gases from today reviewed - shows hypoxemia related to IPF, no CO2 retention Information obtained from patient. Discussion with other team members: I discussed patient with identification officer Dr. Glynn about severe IFP and need for palliative discussions. Advanced Care Planning (ACP) Tab Review: Living Will in EMR: not on file Prior POLST in EMR: no Decision-making Capacity: Does Patient have Decisional Capacity? Yes Does Patient have a Healthcare Agent? David, daughters Portia and Mary are able to help. Discussion with Patient/Family: As above. ASSESSMENT/RECOMMENDATIONS: Nicolasa Gomez is a/an 73 year old female with the primary diagnosis of IPF, admitted for IPF exacerbation. Palliative Impression: Acute on chronic respiratory failure with hypoxia Severe IPF with exacerbation- not a lung transplant candidate Severe asthma Goals of care/palliative care encounter Code status: full code for now Recommendations: Patient's main goal is to remain at home as long as possible, with as good of quality of life as possible. Does not yet need things like morphine or benzodiazepines for SOB and/or anxiety. Patient is requesting a family meeting to clarify code status and discuss future options as her disease progresses/worsens. We have tentatively scheduled this for Saturday at 1:30pm if she is still admitted. If she is discharged, we will call to schedule this at [facility] office. Continue current medical management for now. I appreciate your consult and the opportunity to assist in the care of your patient. Please do not hesitate to call or TigerText with additional questions or concerns. We will continueto follow I spent a total of 72 minutes coordinating, documenting, and providing care for this patient excluding time spent in the performance of separately billed services. JOSEPH Sargent Palliative Medicine Nurse Practitioner [email or web address] * Abran Watson PA-C - 05/09/2023 12:15 PM ESTAssociated Order(s): THORACIC MEDICINE / PULMONOLOGY CONSULT IP CONSULT - Thoracic / Pulmonary Medicine [facility]-[address] [id number] Name: Nicolasa Gomez Location: [facility] 3B-3023/D Date: 05/09/2023 Time: 12:16 PM REQUESTING SERVICE: Dr Gutierrez REASON FOR CONSULT: "pt with ILD and Severe Asthma p/w sob" HISTORY OF PRESENT ILLNESS: Patient is a 73-year-old female known to the Pulmonary Clinic with past medical history significantfor chronic respiratory failure hypoxia, severe persistent asthma, idiopathic pulmonary fibrosis onantifibrotic therapy, and type 2 diabetes who is admitted for acute on chronic hypoxic respiratory failure. Patient reports ongoing shortness of breath at baseline. She uses 8-12 L of oxygen around the clockdepending on activity level. She knows that when she ambulates her oxygen saturations do tend to drop significantly. Prior to coming to the ED she reports feeling very uneasy and lightheaded (she describes it as feeling like there were bees under her skin) in addition to shortness of breath not relieved with rest. She has occasional cough at baseline but sputum is normally clear and she notes starting sometime last week slight change in sputum, noticed it becoming more purulent and green. She denies chest pain, fever or chills, nausea, vomiting, diarrhea, lower extremity pain or swelling. We had an extensive conversation regarding her history, treatment plan and goals of care. She knowzackeryhe likely does not have very long to live given her oxygen requirements, but she wants to be able to leave the house and participate in things that she enjoys and spend time with her family in the time that she has left. She has previously been treated with long courses of prednisone and noted significant improvement in her symptoms when taking prednisone. She is aware of the potential risks with long-term steroid use but states that at this point she does not care. She was placed on prednisone 10 mg every other day by Dr. Finch at last outpatient visit but feels it is not enough. PAST MEDICAL HISTORY: Past Medical History: Diagnosis Date Asthma Chronic respiratory failure (HCC) Diabetes mellitus (HCC) Environmental and seasonal allergies 01/29/2022 Gastroesophageal reflux disease 01/29/2022 HTN, goal below 130/80 11/20/2021 IPF (idiopathic pulmonary fibrosis) (HCC) Obesity (BMI 30.0-34.9) 01/29/2022 Pulmonary arterial hypertension (HCC) PAST SURGICAL HISTORY: Past Surgical History: Procedure Laterality Date CATARACT SURGERY,COMPLEX LAP;W/HYSTERECTOMY PARTIAL HYSTERECTOMY Bilateral Ovaries remain REMOVE CATARACT, INSERT LENS PROSTH Bilateral 2013 FAMILY HISTORY: Family History Problem Relation Age of Onset Leukemia Mother 69 Prostate cancer Father 75 Other (Other) Father surgical complications Diabetes Sister Diabetes Brother Prostate cancer Brother Diabetes Sister Osteoporosis Sister Breast Cancer Sister Hypertension Sister SOCIAL HISTORY: Social History Tobacco Use Smoking status: Never Smokeless tobacco: Never Tobacco comments: Trivial prior smoking in college Vaping Use Vaping Use: Never used Substance Use Topics Alcohol use: Yes Comment: very rare Drug use: Never ALLERGIES: Lisinopril Current Outpatient Medications Medication Instructions Atorvastatin Calcium 10 MG Oral Tablet (Lipitor) TAKE 1 TABLET BY MOUTH IN THE MORNING. Azithromycin (ZITHROMAX) 500 mg, Oral, Daily(AM), Take each dose with meal. Breztri Aerosphere 160-9-4.8 MCG/ACT Inhalation Aerosol (Diygobv-Mfidmpofmak-Crtxvdmxdh) 2 Puffs, Inhalation, BID (08,1999) Empagliflozin (JARDIANCE) 10 mg, Oral, Daily(AM) Fasenra 30 mg, Subcutaneous, QMONTH, Every 4 weeks Ipratropium-Albuterol 0.5-2.5 (3) MG/3ML Inhalation Solution 3 mL, Nebulizer, Q6H PRN Loratadine (CLARITIN) 10 mg, Oral, Daily(AM) losartan (COZAAR) 25 mg, Oral, QPM-1999, Restart 03/26/2023-has at home metFORMIN ER (GLUCOPHAGE XR) 1,000 mg, Oral, DINNER, (Restart 1 tab 01/18/2023) inc 2 tabs 01/30/2023, inc 3 tabs 03/26/2023 Multi-Vitamins Oral Tablet 1 Tablet, Oral, Daily(AM) Omeprazole 20 mg, Oral, Daily(AM) oxygen IN GAS 6 lpm during the day and 4 lpm at bedtime, titrate to 10-15 liters on exertion to keep saturation >90% since hosp DC Pirfenidone (ESBRIET) 801 mg, Oral, TID(AM/NOON/HS), one pill three times a day predniSONE (DELTASONE) 10 mg, Oral, EVERY OTHER DAY Probiotic Acidophilus Oral Capsule 2 daily repaGLINide (PRANDIN) 0.5 mg, Oral, AC, If sugar >140 (using temporarily as holding metformin due to gfr 33 with diuretic use, STOP torsemide and potassium), stat lab 12/28/22 ROS: See HPI PHYSICAL EXAMINATION: Most Recent Vital Signs: BP: 141 mmHg/84 mmHg (05/09/231133) Pulse: 89 (05/09/23 113) Temp: 36.61 C (05/09/231133) Temp Summary: Temp Min: 36 C (96.8 F) Max: 37.2 C (99 F) SpO2: 90 % (05/09/231133) O2 flow rate: 10 L/MIN (05/09/231133) Supplemental O2 Delivery: Intermediate Nasal Cannula (05/09/231133) O2 Mode: O2 %: O2 Flow Rate: O2 flow rate: 10 L/MIN (02/29/24 1134) IPAP: CPAP/EPAP: Vital Signs Last 24 Hours: Systolic BP: Most Recent Systolic BP Av.4 mmHg Min: 119 mmHg Max: 185 mmHg Temperature: Most Recent Temperature Av.5 C Min: 36 C Max: 37.22 C Pulse: Pulse Av.4 Min: 53 Max: 107 Respirations: Resp Av Min: 16 Max: 28 SpO2: SpO2 Av.8 % Min: 90 % Max: 98 % Constitutional: no acute distress, on oxygen, speaks clearly and in full sentences, tearful/emotional at times when discussing her mortality HEENT: normal: normocephalic, atraumatic; no masses, tenderness, or adenopathy CV: normal rate and rhythm, no murmur, gallops or rub Chest: normal respiratory effort, fine inspiratory crackles throughout all lung spaulding but loudest in lung bases Extremities: no clubbing, cyanosis, or edema, otherwise grossly normal, warm, and dry Skin: warm, dry, intact Neuro: alert, oriented to person, place, and time LABS: Labs reviewed as indicated below: Latest Reference Range & Units 05/08/23 15:48 Temperature C 37.0 pH, Venous 7.320 - 7.430 units 7.365 pCO2, Venous 40.0 - 60.0 mmHg 46.2 pO2, Venous 25.0 - 50.0 mmHg 18.0 (L) O2 Content, Venous 7.0 - 18.0 %vol 3.2 (L) Oxyhemoglobin, Venous 40.0 - 85.0 % total Hgb 19.7 (L) Base Excess, Venous -2.0 - 2.0 mmol/L 0.7 Carboxyhemoglobin, Whole Blood <=1.5 % total Hgb 0.6 Methemoglobin, Whole Blood <=1.5 % total Hgb 0.7 Reduced Hemoglobin, Venous % total Hgb 79.0 Bicarbonate, Whole Blood 23.0 - 31.0 mmol/L 25.8 Latest Reference Range & Units 05/09/23 04:56 Sodium 135 - 146 mmol/L 140 Potassium 3.5 - 5.1 mmol/L 4.2 Chloride 98 - 107 mmol/L 105 CO2 22 - 32 mmol/L 24 BUN 6 - 20 mg/dL 26 (H) Creatinine 0.5 - 1.0 mg/dL 0.9 Estimated Glomerular Filtration Rate >=60 mL/min 72 Anion Gap 7 - 15 mmol/L 11 Glucose 70 - 120 mg/dL 155 (H) Calcium 8.4 - 10.2 mg/dL 9.6 Magnesium 1.5 - 2.6 mg/dL 2.5 Phosphorus 2.5 - 4.8 mg/dL 4.0 CBC Rpt ! WBC 4.00 - 10.80 K/uL 11.46 (H) HGB 12.0 - 15.3 g/dL 10.1 (L) HCT 36.0 - 45.2 % 32.1 (L) MCV 81.5 - 97.5 fL 90.2 PLT 140 - 400 K/uL 260 CT THORAX: 05/08/2023 4:22 PM COMPARISON: CT PULMONARY EMBOLUS W CONTRAST 11/26/2022 6:43 PM FINDINGS: Pulmonary arteries: No filling defects suspicious [...] sections through the upper abdomen are unremarkable. IMPRESSION: 1. No evidence of central pulmonary embolism. Smaller peripheral pulmonary artery branches are not opacified well enough for comment. 2. Chronic interstitial lung disease/interstitial fibrosis with scattered areas of subpleural honeycombing and diffuse bronchiectasis, similar to prior. Mild reactive mediastinal lymphadenopathy, stable. 3. Moderate plaque in the aorta. Aberrant right subclavian artery. IMPRESSION: Acute on chronic hypoxic respiratory failure Idiopathic pulmonary fibrosis Severe allergic asthma I had a lengthy discussion with the patient today regarding her mortality and goals of care. She acknowledges the known side effects and long-term risks of prednisone but states she feels significantly better when on higher doses. She was supposed to meet with palliative Care as an outpatient yesterday but then was admitted. Shewould very much like to see them in-house. She is currently listed as a full code and this should be addressed. No evidence of pneumonia on chest CT, CT reviewed and shows chronic changes with severe traction bronchiectasis and parenchymal distortion from interstitial lung disease. Labs were generally unremarkable. Will obtain sputum culture given her reported change in its color and quality, but for now continue to treat with IV steroids. Recommend at least 5 days of 40 mg of steroids, then taper down to 20 mg and continue 20 mg daily indefinitely. Patient was admitted for a primary diagnosis of COPD Exacerbation: no Patient has a diagnosis of COPD: no Does this patient have hypercarbic respiratory failure (pCO2 greater than 52)? No Patient is being followed by a Hardware Trainer: yes, [facility] PULMONARY CONSULTATION SUGGESTION(S): Palliative care consult Continue oxygen with goal SpO2 88-94% Patient should be ambulated with an Oxymizer prior to discharge, she does have 1 at home but has not used it very much Continue Solu-Medrol 40 mg for 5 days then transition to p.o. prednisone 20 mg to be continued indefinitely Patient will likely need diabetic therapy adjustment as an outpatient given plan for chronic steroid use Pulmonary Medicine outpatient follow-up (unless GOC discussion leads to hospice) Patient seen and discussed with Dr Glynn, Pulmonary / Thoracic Medicine Attending. I spent a total of 90 minutes coordinating, documenting, and providing care for this patient excluding time spent in the performance of separately billed services or time spent by another provider/QHP. STAFF NOTE: Associated attestation - Leonardo Glynn MD - 05/09/2023 12:42 PM EST [facility] STAFF I have reviewed the advanced practitioner's documentation on the date of service referenced in note, and I agree with, and take responsibility for the plan of care. In summary, 73 yo F with IPF, chronic hypoxic respiratory failure (10LPM), PHTN, DM2, asthma admitted with probable IPF exacerbation. She reports feeling ok at rest but increasingly dyspneic with minimal movement, associated with significant desaturation. No fevers, productive cough, hemoptysis. She was recently declined for lung transplant by [facility] (May 04, details in Care Everywhere). Exam as outlined. Conversational dyspnea. Diffuse crackles. Ext warm. Labs and images reviewed. WBC 11, Hgb 10. PCT 0.08. RVP negative. VBG 7.37/46. CTPE from admit reviewed- no PE, diffuse interstitial changes HRCT from 2022 reviewed- IPF pattern of basilar predominant fibrosis, honeycombing, traction bronchiectasis; minimal ground glass Recommendations as outlined. Continue Solumedrol 40mg daily for 5 days then discharge on 20mg prednisone per day. Would not taper abruptly. She seems to do better on steroids (asthma, IPF?) and her life expectancy is such that intermediate teacher side effects are less of an issue. Continue bronchodilators, Trelegy. Consider trial of gentle diuresis to see if subjectively improved (elevated pBNP). Palliative Care consult to review goals of care, symptom management - pt amenable to this idea. Continue follow up in Pulmonary clinic. PCCM will continue to follow with you. Please call with questions. I spent a total of 30 minutes coordinating, documenting, and providing care for this patient excluding time spent in the performance of separately billed services or time spent by another provider/QHP. Leonardo Glynn MD 05/09/2023 12:42 PM documented in this encounter Nursing Notes * Daylin Franks LPN - 05/10/2023 4:20 PM EST 1615- Pt ambulated with assistance in all with a rolling walker at this time. Pt desated to 87 while ambulating on 15 L NC. Pt tolerated an entire lap of 134 feet at this time. Pt when returning to room did desat to 76% on 10 L NC. Pt recovered quickly and back up to 94-96 % on 10 L IMNC. Daylin Franks LPN * Kusum Sims RN - 05/10/2023 8:09 AM EST 0810 Pt A&O x4, VS within pt's NL, denies pain at this time. Asmt, morning med pass complete. Call banks within reach. 1530 Report given to Jacqueline Franks LPN. * Jie Armijo RN - 05/08/2023 10:14 PM EST Dual Licensed Skin Assessment completed by Jie Armijo RN and Neyda Alonso LPN. The patient is/has a N/A Skin Breakdown (includes non blanchable erythema): No Pt alert and oriented, on 10L which is patients baseline, pt desats with ambulation. No complaints of pain, pt oriented to room, call banks within reach, no questions or concerns at this time, will continue to monitor. * Elke Lawson RN - 05/08/2023 10:01 PM EST VIRTUAL RN [facility]-[address] [address] Name: Nicolasa Gomez Location: [facility] 3B-3023/D Date: 05/08/2023 Time: 10:01 PM I completed the Admission Navigator. The patient was in the hospital. I was not in a hospital or clinic location. After connecting through [employer], the patient was identified by name and date of and / or wristband checked. Patient (or authorized legal automotive leasing sales representative) was then informed that this was a Virtual Nurse visit and was being conducted confidentially over secure lines. I used a headset and other methods to ensure confidentiality for the patient. My office door was closed. No oneelse was in the room with me. Patient acknowledged consent and understanding of privacy and security of the Virtual Nurse visit. I presented the opportunity for the patient or authorized legal automotive leasing sales representative to ask any questions regarding the visit today. The patient or authorized legal automotive leasing sales representative agreed to participate. documented in this encounter ED Notes * Julisa Muñoz, - 05/08/2023 3:37 PM EST HISTORY OF PRESENT ILLNESS Nicolasa Gomez is a 73 year old female who presents to the ED for evaluation of Short of Breath. The patient was seen at 05/08/23 [id number]. Patient has a past history of hypertension, diabetes mellitus,idiopathic pulmonary fibrosis for last 5 years, chronic respiratory failure on 10 L of oxygen, asthma, pulmonary hypertension. Patient presents for evaluation of increased shortness of breath compared to her baseline. Patient reports that she noticed increased shortness of breath starting last week. Patient noticed that her pulse oxygen saturation dropped to 50% after ambulating her typical distance to the bathroom. Patient reports that her oxygen saturation usually drops to the 80% but has been dropping lower recently. Patient reports using nebulizer treatments to help with the shortness of breath at home. Patient does see a identification officer. Patient has been on chronic steroid therapy, identification officer has been attempting to wean her off of the steroid therapy. In the last 2 weeks identification officer her prednisone to 10 mg every other day. Patient was on 5 mg everyday before this. Patient was sta rted on azithromycin on Saturday. Patient does report a productive cough. Patient denies any fever, chills, night sweats. Patient does report chest discomfort, that occurs during exertion and states that it feels like her heart is racing. Patient does report headache and feeling off ever since her shortness of breath has increased. Patient was not a candidate for lung transplant. Patient was a fullcode, would like to be intubated for short-term purposes only. Short of Breath Review of Systems Respiratory: Positive for shortness of breath. All other systems reviewed and are negative. The patient's allergies, past history, and medications were reviewed. PHYSICAL EXAM Initial Vitals (see all): BP 146/75 | Pulse 106 | Resp 28 | Temp 99 | O2 93 %, Nasal Cannula | Weight 75.66 kg | Height 157.5cm | BMI 30.51 kg/m2 Initial Pain Assessment (see all): 0 (no pain)/10 ([facility] Adult Scale 0-10) Physical Exam Vitals and nursing note reviewed. Constitutional: General: She is in acute distress. Appearance: She is obese. Eyes: Extraocular Movements: Extraocular movements intact. Pupils: Pupils are equal, round, and reactive to light. Cardiovascular: Rate and Rhythm: Regular rhythm. Tachycardia present. Heart sounds: Normal heart sounds. Pulmonary: Effort: Tachypnea and accessory muscle usage present. Comments: Honeycombing/crackle lung sounds throughout all lung spaulding. Chest: Chest wall: No tenderness. Abdominal: Palpations: Abdomen is soft. Tenderness: There is no abdominal tenderness. There is no guarding or rebound. Musculoskeletal: General: Normal range of motion. Right lower leg: No edema. Left lower leg: No edema. Skin: General: Skin is warm. Capillary Refill: Capillary refill takes less than 2 seconds. Neurological: General: No focal deficit present. Mental Status: She is alert and oriented to person, place, and time. Psychiatric: Mood and Affect: Mood normal. Behavior: Behavior normal. PROCEDURES AND TREATMENTS ED Orders | ED Results MEDICAL DECISION MAKING Nursing notes and vital signs were reviewed. ED consults were placed. ED Course as of 05/08/232324May 08, 2023 1546 XR Chest 2 Views IMPRESSION: Chronic interstitial lung disease with mainly peripheral interstitial thickening/fibrotic changes and diffuse bronchiectasis appears slightly more extensive than prior. A component of interstitial pneumonia can not be excluded. [AL] 1546 WBC(!): 12.02 [AL] 1546 SpO2: 93 % [AL] 1547 Temp: 37.2 C (99 F) [AL] 1547 Resp: 28 [AL] 1547 Pulse: 106 [AL] 1547 BP: 146/75 [AL] 1547 EKG reviewed by me, normal sinus rhythm ventricular rate 92 beats per minute, evidence of right axis deviation, no ST segment elevation, depression, T-wave inversion. Normal intervals. EKG lookssimilar to prior EKG. [AL] 1604 Supervisory Addendum-[facility] I participated in the following activities of this patients care: the medical history, the physicalexam, medical decision making. I personally performed: supervision of the patient's care, the medical history, the physical exam, the medical decision making. The case was discussed with: the [facility] Evaluation and management service: I agree with the evaluation and management decisions made in this patient's care. Results interpretation: I agree with the study interpretation in this patient's care. Notes: Patient personally interviewed and examined and care coordinated in conjunction with the APC. I agree with the assessment, treatment plan and disposition of the patient as recorded by the [facility]. My independent Hx/Exam/MDM includes the following: Patient is a 73-year-old female who presents a chief complaint worsening shortness of breath for about 10 days now. She does have pulmonary fibrosisand does wear 10 L of oxygen at all times. When she is up moving around using her longer tubing shewill increase it to 12 L. she is noticed some productive cough but that has since gone away but sheis still short of breath with minimal ambulation. She desaturates to about 50% on her oxygen when walking to the bathroom she gets short of breath. Denies any lightheadedness or dizziness associated.No fevers or chills. No recent medication changes. No known history DVT or PE and she has on no thinners. On my exam the patient is resting comfortably in bed. She has no conversational dyspnea this time. Diminished breath sounds throughout, she is currently on 10 L of oxygen saturating at 93%. Tachycardia present, regular rhythm. No abdominal tenderness palpation. No lower extremity edema. [MS] 2046 CT Pulmonary Embolus with IV contrast IMPRESSION: 1. No evidence of central pulmonary embolism. Smaller peripheral pulmonary artery branches are not opacified well enough for comment. 2. Chronic interstitial lung disease/interstitial fibrosis with scattered areas of subpleural honeycombing and diffuse bronchiectasis, similar to prior. Mild reactive mediastinal lymphadenopathy, stable. 3. Moderate plaque in the aorta. Aberrant right subclavian artery. [AL] ED Course User Index [AL] Cameron Ford PA-C [MS] Julisa Muñoz, Differential Diagnoses Based on my history, physical exam, and evaluation, the differential includes, but is not limited, to the following diagnoses: Interstitial lung disease exacerbation, pneumonia, acute coronary syndrome, dysrhythmia, pulmonary embolism, pneumothorax, respiratory failure, viral illness, heart failure, acute uncompensated respiratory acidosis,. This is a 73-year-old female presenting for increased shortness of breath and productive cough compared to her baseline. HPI described above. Vital signs reviewed on arrival and patient was noted to have pulse oxygen saturation at 93% on 10 L, slightly tachycardic, mildly hypertensive. On examination, patient noted to have increased work of breathing, was sitting upright to help her breathe. Honeycombing/crackle lung sounds were appreciated throughout all lung spaulding. Patient had a chest x-ray and CT PE study performed. Shown evidence of chronic interstitial lung disease. Results of these imaging studies described above. Patient was given 2 DuoNebs, started Solu-Medrol, patient attempted to ambulate in the emergency department and her pulse oxygen dropped to 78%. Patient was given IV magnesium. Patient was ambulated and her pulse ox dropped in the 70s again. Patient only ambulated 4-8 steps in the emergency department. Patient normally has to ambulate 20 steps to get to the bathroom at her house. At this time there is less chance of any infectious causes for her symptoms at this time, very mild leukocytosis, normal procalcitonin, imaging studies not demonstrating consolidation. I discussed the results of the workup with the hospitalist Dr. Goldsmith and he is agreeing to accept thepatient for inpatient with [facility] at this time. Patient is agreeing with staying in the hospi telma, answered her questions, remained stable under my care and supervision in the emergency department. Amount and/or Complexity of Data Reviewed Labs: ordered. Decision-making details documented in ED Course. Radiology: ordered. Decision-making details documented in ED Course. Risk Prescription drug management. Decision regarding hospitalization. Clinical Impressions Shortness of breath Chronic hypoxic respiratory failure (HCC) Idiopathic pulmonary fibrosis (HCC) Leukocytosis, unspecified type Disposition Admitted. I discussed the management of this patient with the admitting provider and I made a decision to admit the patient. Admission Order Ordered Status . 05/08/23 2018 Admit for Inpatient Services (incl ZPO) ONCE Completed Julisa Muñoz was the attending physician who supervised the care of this patient. Cameron Ford PA-C Please see attestation in the ED course in the above note. Julisa Muñoz, * Lara Calderon RN - 05/08/2023 2:29 PM EST Short of breath with exertion starting last week. On 10L NC at baseline. documented in this encounter Miscellaneous Notes * Care Plan - Nicol Umanzor RN - 05/10/2023 5:39 AM EST Clinical Goal(s): pt spo2 will be 90 or > on 10L this shift (05/09/232139) Possible barriers to meeting goal(s)/advancing plan of care: acuity of illness Stability of the patient: Moderately stable - low risk of patient condition declining or worsening Summary regarding today's goal(s): Met: pt spo2 was >90% this shift. Recommendations: maintain cont. Pulse monitoring, keep call banks within reach * Care Plan - Jie Armijo RN - 05/09/2023 5:25 AM EST Clinical Goal(s): Pts SpO2 will remain greater than 90% on 10L this shift (05/08/232137) Possible barriers to meeting goal(s)/advancing plan of care: diagnosis Stability of the patient: Moderately stable - low risk of patient condition declining or worsening Summary regarding today's goal(s): Not Met: pts SpO2 dropped to 60% with ambulation Recommendations: Continue with plan of care * Medical Necessity - Kala Godoy RN - 05/08/2023 8:21 PM EST AdmissionCare Guideline: Pulmonary Disease, Inpatient Based on the indications selected for the patient, the bed status of Inpatient was determined to beMET The following indications were selected as present at the time of evaluation of the patient: - Respiratory complications (eg, bronchiolitis obliterans, chemoradiation toxicity, respiratory infection) in nonpulmonary organ transplant patient (eg, Hypoxemia, new need for CPAP, mechanical ventilation) - Hypoxemia, as indicated by 1 or more of the following: - Patient with baseline need for supplemental oxygen who now requires increased supplemental oxygento maintain oxygenation at baseline or acceptable level - Pulmonary Disease condition, symptom, or finding for which observation care has failed or is not considered appropriate. See General Criteria: Observation Care, General Admission Criteria, or Pediatric General Admission Criteria guideline as appropriate. Additional Information: Patient has a past history of hypertension, diabetes mellitus, idiopathic pulmonary fibrosis for last 5 years, chronic respiratory failure on 10 L of oxygen, asthma, pulmonaryhypertension. Patient presents for evaluation of increased shortness of breath compared to her baseline. Patient reports that she noticed increased shortness of breath starting last week. Patient noticed that her pulse oxygen saturation dropped to 50% after ambulating her typical distance to the bathroom. AdmissionCare documentation entered by: Kala Godoy [facility] [employer], 27th edition, Copyright 2022 [facility] [employer] All Rights Reserved. [id number]:00 Solely for purpose of utilization review and payment; not a diagnostic tool * ED Novelty Twister Tender Note - Lara Calderon RN - 05/08/2023 8:06 PM EST Ambulatory pulse ox. Resting pulse ox 96% on her 10L NC. While ambulating patient pulse ox was 83% on 10L NC. Patient then sat in a wheelchair and requested to use the bathroom. Upon returning from the bathroom pulse ox 48% on 10L NC. Upon returning to bed and resting pulse ox returned to 90% on baseline o2 * ED Novelty Twister Tender Note - Lara Calderon RN - 05/08/2023 5:46 PM EST Pulse ox 95% on baseline 10L NC. Patient ambulated 4 steps with baseline o2 at 10L NC pulse ox 78% on 10L NC. Patient ambulated 4 steps back to bed pulse ox 58% on 10L NC. With rest pulse ox returnedto 94% on baseline o2. documented in this encounter Plan of Treatment Upcoming Encounters Date Type Department Care Team (Late st Contact Info) Description 05/14/2023 9:00 AM EST PulmDiagnostic Pulmonary Function Lab, [facility] [place] [address] [facility] [place] [address] [place], P[place] [address] [facility] [facility] [place] [address] 05/15/2023 4:00 PM EST Office Visit General Internal Medicine [facility] [address] [address] [address] Rizwana Antunez MD [address] [place] [address] 06/13/2023 1:00 PM EDT Nurse Only Pulmonary Medicine, [facility] [place] [address] [facility] [place] [address] Gw, Nurse Pulmonary [address] [facility] [place] [address] 06/20/2023 10:00 AM EDT Laboratory Laboratory [facility] [address] [place] [phone] [place], Lab [facility] [address] [facility] [place] [address] 06/25/2023 1:20 PM EDT Office Visit General Internal Medicine [facility] [address] [address] Rizwana Antunez MD [address] [facility] [place] [address] 07/25/2023 1:30 PM EDT Office Visit Cardiology, [facility] [place] [address] [facility] [place] [address] Ni Kay PA-C [address] [place] [place] [address] 07/29/2023 10:00 AM EDT Imaging Radiology [address] [facility] [place] [address] 12/02/2023 11:00 AM EDT Imaging Radiology, [facility] [address] [facility] [address] 04/02/2024 1:00 PM EST Imaging Radiology [address] [facility] [place] [address] Health Maintenance Due Date Last Done Comments [...] Procedure Name Priority Date/Time Associated Diagnosis Comments BASIC METABOLIC PANEL Routine 05/11/2023 3:11 AM EST CBC Routine 05/11/2023 3:11 AM EST BASIC METABOLIC PANEL Routine 05/10/2023 5:22 AM EST CBC Routine 05/10/2023 5:22 AM EST BASIC METABOLIC PANEL Routine 05/09/2023 4:56 AM EST PHOSPHORUS Routine 05/09/2023 4:56 AM EST CBC Routine 05/09/2023 4:56 AM EST MAGNESIUM Routine 05/09/2023 4:56 AM EST PT INR Routine 05/09/2023 4:[address] PULMONARY EMBOLUS W CONTRAST STAT 05/08/2023 4:29 PM EST BLOOD GAS, VENOUS STAT 05/08/2023 3:4 8 PM EST EXTRA LIGHT BLUE TOP Routine 05/08/2023 3:10 PM EST DIFFERENTIAL, AUTOMATED STAT 05/08/2023 3:10 PM EST TROPONIN T, HIGH SENSITIVITY STAT 05/08/2023 3:10 PM EST PROCALCITONIN Add-on 05/08/2023 3:10 PM EST BNP (NT-PROBNP) STAT 05/08/2023 3:10 PM EST COMPREHENSIVE METABOLIC PANEL STAT 05/08/2023 3:10 PM EST CBC STAT 05/08/2023 3:10 PM EST PT INR STAT 05/08/2023 3:10 PM EST CBC STAT 05/08/2023 3:10 PM EST XR CHEST 2 VIEWS STAT 05/08/2023 3:03 PM EST RESPIRATORY PATHOGEN PANEL, PCR STAT 05/08/2023 2:34 PM EST documented in this encounter Results * (ABNORMAL) BASIC METABOLIC PANEL (05/11/2023 3:11 AM EST) BUN 32(H) 6 - 20 mg/dL 05/11/2023 4:28 AM EST LABORATORY [facility] Creatinine 0.9 0.5 - 1.0 mg/dL 05/11/2023 4:28 AM EST LAB[facility]ATORY [facility] Estimated Glomerular Filtration Rate 68 >=60 mL/min 05/11/2023 4:28 AM EST LAB[facility]ATORY [facility] Comment:eGFR is calculated b ased on the CKD-EPI 2020 equation Sodium 143 135 - 146 mmol/L 05/11/2023 4:28 AM EST LAB[facility]ORY [facility] Potassium 3.9 3.5 - 5.1 mmol/L 05/11/2023 4:28 AM EST LAB[facility]ATORY [facility] Chloride 105 98 - 107 mmol/L 05/11/2023 4:28 AM EST LAB[facility]ORY [facility] CO2 25 22 - 32 mmol/L 05/11/2023 4:28 AM EST LAB[facility]ORY [facility] Anion Gap 13 7 - 15 mmol/L 05/11/2023 4:28 AM EST LAB[facility]ORY [facility] Glucose 131(H) 70 - 120 mg/dL 05/11/2023 4:28 AM EST LAB[facility]ORY [facility] Calcium 9.8 8.4 - 10.2 mg/dL 05/11/2023 4:28 AM EST LABORATORY GL Blood Venous blood specimen / Unknown Venipuncture / Unknown 05/11/2023 3:11 AM EST 05/11/2023 4:00 AM EST Irwin Gutierrez MD LAB BLOOD ORD ERABLES LABORATORY [address] [address] * (ABNORMAL) CBC (05/11/2023 3:11 AM EST) WBC 10.95(H) 4.00 - 10.80 K/uL 05/11/2023 4:09 AM EST LAB[facility]ATORY [facility] RBC 3.28 3.85 - 5.15 M/uL 05/11/2023 4:09 AM EST LAB[facility]ORY [facility] HGB 9.4(L) 12.0 - 15.3 g/dL 05/11/2023 4:09 AM EST LAB[facility]ORY [facility] HCT 30.3(L) 36.0 - 45.2 % 05/11/2023 4:09 AM EST LAB[facility]ORY [facility] MCV 92.4 81.5 - 97.5 fL 05/11/2023 4:09 AM EST LABORATORY [facility] MCH 28.7 27.0 - 34.0 pg 05/11/2023 4:09 AM EST LABORATORY [facility] MCHC 31.0 32.0 - 36.0 g/dL 05/11/2023 4:09 AM EST LABORATORY [facility] RDW 16.0 11.5 - 15.5 % 05/11/2023 4:09 AM EST LABORATORY [facility] PLT 228 140 - 400 K/uL 05/11/2023 4:09 AM EST LABORATORY [facility] MPV 11.0 6.6 - 11.1 fL 05/11/2023 4:09 AM EST LABORATORY [facility] nRBCs 0 <=0 /100 WBCs 05/11/2023 4:09 AM EST LABORATORY [facility] Blood Venous blood specimen / Unknown Venipuncture / Unknown 05/11/2023 3:11 AM EST 05/11/2023 4:00 AM EST Irwin Gutierrez MD LAB BLOOD ORD ERABLES LABORATORY [facility] [address] [place] [address] * (ABNORMAL) BASIC METABOLIC PANEL (05/10/2023 5:22 AM EST) BUN 34(H) 6 - 20 mg/dL 05/10/2023 6:23 AM EST LABORATORY GL Creatinine 0.9 0.5 - 1.0 mg/dL 05/10/2023 6:23 AM EST LABORATORY GL Estimated Glomerular Filtration Rate 67 >=60 mL/min 05/10/2023 6:23 AM EST LABORATORY GL Comment:eGFR is calculated b ased on the CKD-EPI 2020 equation Sodium 142 135 - 146 mmol/L 05/10/2023 6:23 AM EST LAB[facility]ATORY [facility] Potassium 3.7 3.5 - 5.1 mmol/L 05/10/2023 6:23 AM EST LABORATORY GL Chloride 106 98 - 107 mmol/L 05/10/2023 6:23 AM EST LAB[facility]ATORY [facility] CO2 24 22 - 32 mmol/L 05/10/2023 6:23 AM EST LABORATORY GL Anion Gap 12 7 - 15 mmol/L 05/10/2023 6:23 AM EST LABORATORY [facility] Glucose 115 70 - 120 mg/dL 05/10/2023 6:23 AM EST LABORATORY [facility] Calcium 9.3 8.4 - 10.2 mg/dL 05/10/2023 6:23 AM EST LABORATORY [facility] Blood Venous blood specimen / Unknown Venipuncture / Unknown 05/10/2023 5:22 AM EST 05/10/2023 6:02 AM EST Irwin Gutierrez MD LAB BLOOD ORD ERABLES LABORATORY [facility] [address] [place] [address] * (ABNORMAL) CBC (05/10/2023 5:22 AM EST) WBC 10.93(H) 4.00 - 10.80 K/uL 05/10/2023 6:11 AM EST LABORATORY [facility] RBC 3.34 3.85 - 5.15 M/uL 05/10/2023 6:11 AM EST LABORATORY [facility] HGB 9.8(L) 12.0 - 15.3 g/dL 05/10/2023 6:11 AM EST LABORATORY [facility] HCT 30.9(L) 36.0 - 45.2 % 05/10/2023 6:11 AM EST LABORATORY [facility] MCV 92.5 81.5 - 97.5 fL 05/10/2023 6:11 AM EST LABORATORY [facility] MCH 29.3 27.0 - 34.0 pg 05/10/2023 6:11 AM EST LABORATORY [facility] MCHC 31.7 32.0 - 36.0 g/dL 05/10/2023 6:11 AM EST LABORATORY [facility] RDW 16.1 11.5 - 15.5 % 05/10/2023 6:11 AM EST LABORATORY [facility] PLT 244 140 - 400 K/uL 05/10/2023 6:11 AM EST LABORATORY [facility] MPV 11.0 6.6 - 11.1 fL 05/10/2023 6:11 AM EST LABORATORY [facility] nRBCs 0 <=0 /100 WBCs 05/10/2023 6:11 AM EST LAB[facility]ATORY [facility] Blood Venous blood specimen / Unknown Venipuncture / Unknown 05/10/2023 5:22 AM EST 05/10/2023 6:02 AM EST Irwin Gutierrez MD LAB BLOOD ORD ERABLES Performing Organization Address City/[facility]/ZIP Co de Phone Number LABORATORY [address] [address] * PHOSPHORUS (05/09/2023 4:56 AM EST) Phosphorus 4.0 2.5 - 4.8 mg/dL 05/09/2023 6:05 AM EST LABORATORY [facility] Blood Venous blood specimen / Unknown Venipuncture / Unknown 05/09/2023 4:56 AM EST 05/09/2023 5:38 AM EST Eugene Goldsmith MD LAB BLOOD ORDERABLES Performing Organization Address [facility] Co de Phone Number LABORATORY [address] [address] * MAGNESIUM (05/09/2023 4:56 AM EST) Magnesium 2.5 1.5 - 2.6 mg/dL 05/09/2023 6:05 AM EST LABORATORY [facility] Blood Venous blood specimen / Unknown Venipuncture / Unknown 05/09/2023 4:56 AM EST 05/09/2023 5:38 AM EST Eugene Goldsmith MD LAB BLOOD ORDERABLES Performing Organization Address City/[facility] Co de Phone Number LABORATORY [address] [phone] * (ABNORMAL) CBC (05/09/2023 4:56 AM EST) WBC 11.46(H) 4.00 - 10.80 K/uL 05/09/2023 5:45 AM EST LABORATORY [facility] RBC 3.56 3.85 - 5.15 M/uL 05/09/2023 5:45 AM EST LABORATORY GL HGB 10.1(L) 12.0 - 15.3 g/dL 05/09/2023 5:45 AM EST LABORATORY [facility] HCT 32.1(L) 36.0 - 45.2 % 05/09/2023 5:45 AM EST LABORATORY GL MCV 90.2 81.5 - 97.5 fL 05/09/2023 5:45 AM EST LABORATORY GL MCH 28.4 27.0 - 34.0 pg 05/09/2023 5:45 AM EST LABORATORY GL MCHC 31.5 32.0 - 36.0 g/dL 05/09/2023 5:45 AM EST LABORATORY GL RDW 15.7 11.5 - 15.5 % 05/09/2023 5:45 AM EST LABORATORY GL PLT 260 140 - 400 K/uL 05/09/2023 5:45 AM EST LABORATORY GL MPV 11.1 6.6 - 11.1 fL 05/09/2023 5:45 AM EST LABORATORY GL nRBCs 0 <=0 /100 WBCs 05/09/2023 5:45 AM EST LABORATORY GL Blood Venous blood specimen / Unknown Venipuncture / Unknown 05/09/2023 4:56 AM EST 05/09/2023 5:39 AM EST Eugene Goldsmith MD LAB BLOOD ORDERABLES LABORATORY [facility] [address] [place] [address] * (ABNORMAL) BASIC METABOLIC PANEL (05/09/2023 4:56 AM EST) BUN 26(H) 6 - 20 mg/dL 05/09/2023 6:05 AM EST LABORATORY GL Creatinine 0.9 0.5 - 1.0 mg/dL 05/09/2023 6:05 AM EST LABORATORY GL Estimated Glomerular Filtration Rate 72 >=60 mL/min 05/09/2023 6:05 AM EST LABORATORY GL Comment:eGFR is calculated b ased on the CKD-EPI 2020 equation Sodium 140 135 - 146 mmol/L 05/09/2023 6:05 AM EST LABORATORY GL Potassium 4.2 3.5 - 5.1 mmol/L 05/09/2023 6:05 AM EST LABORATORY [facility] Chloride 105 98 - 107 mmol/L 05/09/2023 6:05 AM EST LAB[facility]ATORY [facility] CO2 24 22 - 32 mmol/L 05/09/2023 6:05 AM EST LABORATORY GL Anion Gap 11 7 - 15 mmol/L 05/09/2023 6:05 AM EST LABORATORY GL Glucose 155(H) 70 - 120 mg/dL 05/09/2023 6:05 AM EST LABORATORY GL Calcium 9.6 8.4 - 10.2 mg/dL 05/09/2023 6:05 AM EST LABORATORY [facility] Blood Venous blood specimen / Unknown Venipuncture / Unknown 05/09/2023 4:56 AM EST 05/09/2023 5:38 AM EST Eugene Goldsmith MD LAB BLOOD ORDERABLES LABORATORY [address] [address] * PT INR (05/09/2023 4:55 AM EST) [facility] Prothrombin Time 14.5 11.6 - 15.2 seconds 05/09/2023 6:00 AM EST LABORATORY [facility] INR 1.1 0.8 - 1.2 05/09/2023 6:00 AM EST LABORATORY [facility] Blood Venous blood specimen / Unknown Venipuncture / Unknown 05/09/2023 4:55 AM EST 05/09/2023 5:39 AM EST Narrative LABORATORY [facility] - 05/09/2023 6:00 AM EST Warfarin Therapy INR: 2.0-3.0 conventional anticoagulation INR: 2.5-3.5 high intensity anticoagulation Eugene Goldsmith MD LAB BLOOD ORDERABLES LABORATORY [address] [address] * CT PULMONARY EMBOLUS W CONTRAST (05/08/2023 4:29 PM EST) Anatomical Region Laterality Modality Chest, Cardio, Body Computed Ronni ography 05/08/2023 4:22 PM EST Impressions 05/08/2023 5:05 PM EST IMPRESSION: 1. No evidence of central pulmonary embolism. Smaller peripheral pulmonary artery branches are not opacified well enough for comment. 2. Chronic interstitial lung disease/interstitial fibrosis with scattered areas of subpleural honeycombing and diffuse bronchiectasis, similar to prior. Mild reactive mediastinal lymphadenopathy, stable. 3. Moderate plaque in the aorta. Aberrant right subclavian artery. THIS DOCUMENT HAS BEEN ELECTRONICALLY SIGNED BY YI SANCHEZ MD Narrative 05/08/2023 5:05 PM EST PROCEDURE INFORMATION: Exam: CTA Chest With Contrast Exam date and time: 05/08/2023 4:22 PM Age: 73 years old Clinical indication: Other: Pulmonary embolism; Wells score < 2; D-dimer not done; Not ; Perc positive (score >= 1); Additional info: Pulmonary embolism; Wells score < 2; D-dimer not done; Not ; Perc positive (score >= 1) TECHNIQUE: Imaging protocol: Computed tomographic angiography of the chest with contrast. Exam focused on the arteries. 3D rendering (Not supervised by radiologist): MIP and/or 3D reconstructed images were created by the technologist. Radiation optimization: All CT scans at this facility use at least one of these dose optimization techniques: automated exposure control; mA and/or kV adjustment per patient size (includes targeted exams where dose is matched to clinical indication); or iterative reconstruction. Contrast material: OPTI 320; Contrast volume: 100 ml; Contrast route: INTRAVENOUS (IV); COMPARISON: CT PULMONARY EMBOLUS W CONTRAST 11/26/2022 6:43 PM FINDINGS: Pulmonary arteries: No filling defects suspicious [...] sections through the upper abdomen are unremarkable. Procedure Note Yi Sanchez MD - 05/08/2023 PROCEDURE INFORMATION: Exam: CTA Chest With Contrast Exam date and time: 05/08/2023 4:22 PM Age: 73 years old Clinical indication: Other: Pulmonary embolism; Wells score < 2; D-dimernot done; Not ; Perc positive (score >= 1); Additional info: Pulmonary embolism; Wells score < 2; D-dimer not done; Not ; Perc positive(score >= 1) TECHNIQUE: Imaging protocol: Computed tomographic angiography of the chest withcontrast. Exam focused on the arteries. 3D rendering (Not supervised by radiologist): MIP and/or 3D reconstructed images were created by the technologist. Radiation optimization: All CT scans at this facility use at least one ofthese dose optimization techniques: automated exposure control; mA and/or kV adjustment per patient size (includes targeted exams where dose is matchedto clinical indication); or iterative reconstruction. Contrast material: OPTI 320; Contrast volume: 100 ml; Contrast route: INTRAVENOUS (IV); COMPARISON: CT PULMONARY EMBOLUS W CONTRAST 11/26/2022 6:43 PM FINDINGS: Pulmonary arteries: No filling defects suspicious for pulmonary emboli areseen in the central pulmonary arteries. Mid/distal segmental and smallerpulmonary artery branches are not seen well enough for comment. Great vessels off aortic arch: Aberrant right subclavian artery passes posterior to the trachea and esophagus with marked calcified plaque atvessel origin. Aorta: Moderate atheromatous plaque in the thoracic aorta. Lungs: Re-demonstration extensive bilateral upper and lower lobe mainly peripheral interstitial thickening/fibrotic changes with scattered areasof subpleural honeycombing and diffuse bronchiectasis. Scattered areas ofhazy ground-glass attenuation also similar to prior. Pleural spaces: Mild pleural thickening in the posterior barbara thoraces. No significant pleural effusion. No pneumothorax. Heart: Normal cardiac size and contour. No significant pericardialeffusion. Lymph nodes: A few enlarged mediastinal nodes measuring up to 1.9 cm,right upper paratracheal zone and 1.8 cm right lower paratracheal zone, stablefrom prior consistent with reactive nodes. Bones/joints: Unremarkable bony thorax. No evidence of fracture or other significant osseous abnormality. Soft tissues: Soft tissues are unremarkable as visualized. Other findings: Limited sections through the upper abdomen areunremarkable. IMPRESSION IMPRESSION: 1. No evidence of central pulmonary embolism. Smaller peripheralpulmonary artery branches are not opacified well enough for comment. 2. Chronic interstitial lung disease/interstitial fibrosis withscattered areas of subpleural honeycombing and diffuse bronchiectasis, similar toprior. Mild reactive mediastinal lymphadenopathy, stable. 3. Moderate plaque in the aorta. Aberrant right subclavian artery. THIS DOCUMENT HAS BEEN ELECTRONICALLY SIGNED BY YI SANCHEZ MD Cameron [facility] CT * (ABNORMAL) BLOOD GAS, VENOUS (05/08/2023 3:48 PM EST) Temperature 37.0 C 05/08/2023 3:58 PM EST LABORATORY [facility] pH, Venous 7.365 7.320 - 7.430 units 05/08/2023 3:58 PM EST LABORATORY [facility] pCO2, Venous 46.2 40.0 - 60.0 mmHg 05/08/2023 3:58 PM EST LABORATORY [facility] pO2, Venous 18.0(L) 25.0 - 50.0 mmHg 05/08/2023 3:58 PM EST LABORATORY [facility] Base Excess, Venous 0.7 -2.0 - 2.0 mmol/L 05/08/2023 3:58 PM EST LABORATORY [facility] Hemoglobin, Whole Blood 11.6(L) 12.0 - 15.3 g/dL 05/08/2023 3:58 PM EST LABORATORY [facility] Oxyhemoglobin, Venous 19.7(L) 40.0 - 85.0 % total Hgb 05/08/2023 3:58 PM EST LABORATORY [facility] Carboxyhemoglobi n, Whole Blood 0.6 <=1.5 % total Hgb 05/08/2023 3:58 PM EST LABORATORY [facility] Comment:Smokers: 0-9.0 % Methemoglobin, Whole Blood 0.7 <=1.5 % total Hgb 05/08/2023 3:58 PM EST LABORATORY [facility] Reduced Hemoglobin, Venous 79.0 % total Hgb 05/08/2023 3:58 PM EST LABORATORY [facility] O2 Content, Venous 3.2(L) 7.0 - 18.0 %vol 05/08/2023 3:58 PM EST LABORATORY GL Bicarbonate, Whole Blood 25.8 23.0 - 31.0 mmol/L 05/08/2023 3:58 PM EST LABORATORY GL Blood Venous blood specimen / Unknown Venipuncture / Unknown 05/08/2023 3:48 PM EST 05/08/2023 3:51 PM EST Cameron Ford PA-C LAB BLOOD ORDERA BLES Performing Organization Address [facility] Co de Phone Number LABORATORY [address] [phone] * PROCALCITONIN (05/08/2023 3:10 PM EST) Pathologist [facility] Procalcitonin 0.08 <0.10 ng/mL 05/08/2023 4:35 PM EST LABORATORY [facility] Blood Venous blood specimen / Unknown Venipuncture / Unknown 05/08/2023 3:10 PM EST 05/08/2023 3:13 PM EST Narrative LABORATORY [facility] - 05/08/2023 4:35 PM EST Less than 0.5 ng/mL: Low risk for progression to sepsis. Review patients condition for localized infections. 0.5 to 2.0 ng/mL: Intermediate risk for progresion to sepsis. Review underlying conditions. Recommend repeat PCT after 6 hours has elapsed. Greater than 2.0 ng/mL: high risk for progression to sepsis unless other causes are known. Cameron Ford PA-C LAB BLOOD ORDERA BLES Performing Organization Address [facility] Co de Phone Number LABORATORY [address] [phone] * (ABNORMAL) DIFFERENTIAL, AUTOMATED (05/08/2023 3:10 PM EST) WBC 12.02(H) 4.00 - 10.80 K/uL 05/08/2023 3:17 PM EST LABORATORY [facility] Neutrophils % 89.2(H) 40.0 - 75.0 % 05/08/2023 3:17 PM EST LAB[facility]ATORY [facility] Lymphocytes % 7.3(L) 18.0 - 42.0 % 05/08/2023 3:17 PM EST LAB[facility]ATORY [facility] Monocytes % 3.0 1.0 - 11.0 % 05/08/2023 3:17 PM EST LAB[facility]ATORY [facility] Eosinophils % 0.0 0.0 - 6.0 % 05/08/2023 3:17 PM EST LAB[facility]ATORY [facility] Basophils % 0.1 0.0 - 2.0 % 05/08/2023 3:17 PM EST LAB[facility]ATORY [facility] Immature Granulocytes % 0.4 0.0 - 2.0 % 05/08/2023 3:17 PM EST LABORATORY [facility] Absolute Neutrophils 10.72(H) 1.80 - 7.70 K/uL 05/08/2023 3:17 PM EST LABORATORY [facility] Absolute Lymphocytes 0.88(L) 1.00 - 4.80 K/ul 05/08/2023 3:17 PM EST LABORATORY [facility] Absolute Monocytes 0.36 0.00 - 1.10 K/uL 05/08/2023 3:17 PM EST LABORATORY [facility] Absolute Eosinophils 0.00 0.00 - 0.70 K/uL 05/08/2023 3:17 PM EST LABORATORY [facility] Absolute Basophils 0.01 0.00 - 0.20 K/uL 05/08/2023 3:17 PM EST LABORATORY [facility] Absolute Immature Granulocytes 0.05 0.00 - 0.20 K/uL 05/08/2023 3:17 PM EST LABORATORY [facility] Blood Venous blood specimen / Unknown Venipuncture / Unknown 05/08/2023 3:10 PM EST 05/08/2023 3:13 PM EST Robert Nguyễn DO LAB BLOOD ORDERABLE S LABORATORY [facility] [address] [place] [address] * (ABNORMAL) CBC (05/08/2023 3:10 PM EST) WBC 12.02(H) 4.00 - 10.80 K/uL 05/08/2023 3:17 PM EST LABORATORY [facility] RBC 4.00 3.85 - 5.15 M/uL 05/08/2023 3:17 PM EST LABORATORY GL HGB 11.3(L) 12.0 - 15.3 g/dL 05/08/2023 3:17 PM EST LABORATORY GL HCT 36.6 36.0 - 45.2 % 05/08/2023 3:17 PM EST LABORATORY GL MCV 91.5 81.5 - 97.5 fL 05/08/2023 3:17 PM EST LABORATORY [facility] MCH 28.3 27.0 - 34.0 pg 05/08/2023 3:17 PM EST LABORATORY [facility] MCHC 30.9 32.0 - 36.0 g/dL 05/08/2023 3:17 PM EST LABORATORY [facility] RDW 15.5 11.5 - 15.5 % 05/08/2023 3:17 PM EST LABORATORY [facility] PLT 271 140 - 400 K/uL 05/08/2023 3:17 PM EST LABORATORY [facility] MPV 10.6 6.6 - 11.1 fL 05/08/2023 3:17 PM EST LABORATORY [facility] nRBCs 0 <=0 /100 WBCs 05/08/2023 3:17 PM EST LABORATORY [facility] Blood Venous blood specimen / Unknown Venipuncture / Unknown 05/08/2023 3:10 PM EST 05/08/2023 3:13 PM EST Robert Nguyễn LAB BLOOD ORDERABLE S LABORATORY [facility] [address] [place] [address] * PT INR (05/08/2023 3:10 PM EST) Prothrombin Time 14.1 11.6 - 15.2 seconds 05/08/2023 3:46 PM EST LABORATORY GL INR 1.1 0.8 - 1.2 05/08/2023 3:46 PM EST LABORATORY [facility] Blood Venous blood specimen / Unknown Venipuncture / Unknown 05/08/2023 3:10 PM EST 05/08/2023 3:13 PM EST Narrative LABORATORY [facility] - 05/08/2023 3:46 PM EST Warfarin Therapy INR: 2.0-3.0 conventional anticoagulation INR: 2.5-3.5 high intensity anticoagulation Robert Nguyễn DO LAB BLOOD ORDERABLE S Performing Organization Address [facility]/ZIP Co de Phone Number LABORATORY [address] [address] * TROPONIN T, HIGH SENSITIVITY (05/08/2023 3:10 PM EST) Troponin T, High Sensitivity 12 <=14 ng/L 05/08/2023 3:46 PM EST LABORATORY [facility] Blood Venous blood specimen / Unknown Venipuncture / Unknown 05/08/2023 3:10 PM EST 05/08/2023 3:13 PM EST Robert Nguyễn LAB BLOOD ORDERABLE S Performing Organization Address [facility] de Phone Number LABORATORY [address] [address] * BNP, NT-PRO (05/08/2023 3:10 PM EST) BNP, NT-Pro 187 <300 pg/mL 05/08/2023 4:35 PM EST LABORATORY [facility] Blood Venous blood specimen / Unknown Venipuncture / Unknown 05/08/2023 3:10 PM EST 05/08/2023 3:13 PM EST Narrative LABORATORY [facility] - 05/08/2023 4:35 PM EST Exclude Heart Failure: <300 pg/mL Diagnose Heart Failure: Age <50 yr: >450 pg/mL 50-75 yr: >900 pg/mL >75 yr: >1800 pg/mL GFR is 30-59 mL/min: >1200 pg/mL or Age-adjusted values GFR <30 mL/min: do not use, not reliable Prognostic threshold: 1000 pg/mL Robert Vivek Gopi DO LAB BLOOD ORDERABLE S LABORATORY [facility] [address] [place] [address] * (ABNORMAL) COMPREHENSIVE METABOLIC PANEL (05/08/2023 3:10 PM EST) BUN 25(H) 6 - 20 mg/dL 05/08/2023 3:46 PM EST LABORATORY [facility] Creatinine 0.9 0.5 - 1.0 mg/dL 05/08/2023 3:46 PM EST LABORATORY [facility] Estimated Glomerular Filtration Rate 68 >=60 mL/min 05/08/2023 3:46 PM EST LABORATORY [facility] Comment:eGFR is calculated b ased on the CKD-EPI 2020 equation Sodium 138 135 - 146 mmol/L 05/08/2023 3:46 PM EST LABORATORY [facility] Potassium 4.5 3.5 - 5.1 mmol/L 05/08/2023 3:46 PM EST LABORATORY [facility] Chloride 103 98 - 107 mmol/L 05/08/2023 3:46 PM EST LABORATORY [facility] CO2 22 22 - 32 mmol/L 05/08/2023 3:46 PM EST LABORATORY [facility] Anion Gap 13 7 - 15 mmol/L 05/08/2023 3:46 PM EST LABORATORY [facility] Glucose 175(H) 70 - 120 mg/dL 05/08/2023 3:46 PM EST LABORATORY [facility] Albumin 3.6(L) 3.8 - 5.0 g/dL 05/08/2023 3:46 PM EST LABORATORY [facility] AST 19 10 - 35 U/L 05/08/2023 3:46 PM EST LABORATORY [facility] Alkaline Phosphatase 61 35 - 130 U/L 05/08/2023 3:46 PM EST LABORATORY [facility] Bilirubin, Total 0.2 <=1.2 mg/dL 05/08/2023 3:46 PM EST LABORATORY [facility] Calcium 9.7 8.4 - 10.2 mg/dL 05/08/2023 3:46 PM EST LABORATORY [facility] Protein 7.9 6.0 - 8.3 g/dL 05/08/2023 3:46 PM EST LABORATORY [facility] ALT 10 10 - 35 U/L 05/08/2023 3:46 PM EST LABORATORY [facility] Blood Venous blood specimen / Unknown Venipuncture / Unknown 05/08/2023 3:10 PM EST 05/08/2023 3:13 PM EST [facility] BLO[facility] ORDERABLE S Performing Organization Address [facility] de Phone Number LABORATORY [address] [address] * EXTRA LIGHT BLUE TOP (05/08/2023 3:10 PM EST) Blood Venous blood specimen / Unknown Venipuncture / Unknown 05/08/2023 3:10 PM EST 05/08/2023 3:13 PM EST [facility] S Performing Organization Address [facility] de Phone Number LABORATORY [address] [address] * XR CHEST 2 VIEWS (05/08/2023 3:03 PM EST) Anatomical Region Laterality Modality Chest Digital Radiogra phy 05/08/2023 3:21 PM EST Impressions 05/08/2023 3:28 PM EST IMPRESSION: Chronic interstitial lung disease with mainly peripheral interstitial thickening/fibrotic changes and diffuse bronchiectasis appears slightly more extensive than prior. A component of interstitial pneumonia can not be excluded. THIS DOCUMENT HAS BEEN ELECTRONICALLY SIGNED BY YI SANCHEZ MD Narrative 05/08/2023 3:28 PM EST PROCEDURE INFORMATION: Exam: XR Chest Exam date and time: 05/08/2023 [...] to prior. Bones/joints: No acute osseous abnormality. Procedure Note Yi Sanchez MD - 05/08/2023 PROCEDURE INFORMATION: Exam: XR Chest Exam date and time: 05/08/2023 3:21 PM Age: 73 years old Clinical indication: Shortness of breath; Additional info: Chest pain TECHNIQUE: Imaging protocol: Radiologic exam of the chest. Views: 2 views. COMPARISON: 1. CT PULMONARY EMBOLUS W CONTRAST 11/26/2022 6:43 PM 2. DX XR CHEST 1 VIEW 12/03/2022 2:05 PM FINDINGS: Lungs: Bilateral diffuse mainly peripheral interstitialthickening/fibrotic changes. No segmental infiltrate. Bilateral bronchiectatic changes arenoted. Pleural spaces: Unremarkable. No pleural effusion. No pneumothorax. Heart/Mediastinum: Normal heart size. Right paratracheal mediastinalwidening appears similar to prior. Bones/joints: No acute osseous abnormality. IMPRESSION IMPRESSION: Chronic interstitial lung disease with mainly peripheral interstitial thickening/fibrotic changes and diffuse bronchiectasis appears slightlymore extensive than prior. A component of interstitial pneumonia can not be excluded. THIS DOCUMENT HAS BEEN ELECTRONICALLY SIGNED BY YI SANCHEZ MD [employer] RADIOLOGY ([facility]) * RESPIRATORY PATHOGEN PANEL, PCR (05/08/2023 2:34 PM EST) Adenovirus by PCR Negative Negative 024 3:26 PM EST LABORATORY [facility] Coronavirus 229E by PCR Negative Negative 05/08/2023 3:26 PM EST LABORATORY [facility] Coronavirus HKU1 by PCR Negative Negative 05/08/2023 3:26 PM EST LABORATORY [facility] Coronavirus NL63 by PCR Negative Negative 05/08/2023 3:26 PM EST LABORATORY [facility] Coronavirus OC43 by PCR Negative Negative 05/08/2023 3:26 PM EST LABORATORY [facility] Coronavirus SARS-CoV-2 by PCR Negative Negative 05/08/2023 3:26 PM EST LABORATORY [facility] Human Metapneumovirus by PCR Negative Negative 05/08/2023 3:26 PM EST LABORATORY [facility] Rhinovirus/Enterovi yara by PCR Negative Negative 05/08/2023 3:26 PM EST LABORATORY [facility] Influenza A Virus by PCR Negative Negative 05/08/2023 3:26 PM EST LABORATORY [facility] Influenza B Virus by PCR Negative Negative 05/08/2023 3:26 PM EST LABORATORY [facility] Parainfluenza Virus 1 by PCR Negative Negative 05/08/2023 3:26 PM EST LABORATORY [facility] Parainfluenza Virus 2 by PCR Negative Negative 05/08/2023 3:26 PM EST LABORATORY [facility] Parainfluenza Virus 3 by PCR Negative Negative 05/08/2023 3:26 PM EST LABORATORY [facility] Parainfluenza Virus 4 by PCR Negative Negative 05/08/2023 3:26 PM EST LABORATORY [facility] Respiratory Syncytial Virus by PCR Negative Negative 05/08/2023 3:26 PM EST LABORATORY [facility] Bordetella pertussis by PCR Negative Negative 05/08/2023 3:26 PM EST LABORATORY [facility] Chlamydia pneumoniae by PCR Negative Negative 05/08/2023 3:26 PM EST LABORATORY [facility] Mycoplasma pneumoniae by PCR Negative Negative 05/08/2023 3:26 PM EST LABORATORY [facility] Bordetella parapertussis by PCR Negative Negative 05/08/2023 3:26 PM EST LABORATORY [facility] Comment: The primers that detect Rhinovirus may cross react with some Enterorviruses. The validation of bronchial specimens, tracheal aspirates, and throats for this assay was developed and performance characteristics determined by [employer]. The validation of alternate specimen types has not been cleared or approved by the U.S. Food and Drug Administration (FDA). It has been determined that such clearance or approval is not necessary. Upper Respiratory Mid-turbinate nasal swab / Unknown Non-blood Collection / Unknown 05/08/2023 2:34 PM EST 05/08/2023 2:39 PM EST Robert Nguyễn DO LAB MICRO - GENERAL ORDERABLES LABORATORY [address] [address] documented in this encounter Visit Diagnoses Diagnosis Acute on chronic respiratory failure with hypoxia (HCC)- Primary Shortness of breath Chronic hypoxic respiratory failure (HCC) Idiopathic pulmonary fibrosis (HCC) Idiopathic pulmonary fibrosis Leukocytosis, unspecified type Chest pain Chest pain, unspecified IPF (idiopathic pulmonary fibrosis) (HCC) Idiopathic pulmonary fibrosis HTN, goal below 130/80 Unspecified essential hypertension Pulmonary hypertension (HCC) Other chronic pulmonary heart diseases Obesity (BMI 30.0-34.9) Obesity, unspecified Gastroesophageal reflux disease Esophageal reflux Type 2 diabetes mellitus with hemoglobin A1c goal of less than 7.0% (HCC) Interstitial lung disease (HCC) Postinflammatory pulmonary fibrosis Dyspnea on minimal exertion Palliative care encounter Encounter for palliative care Goals of care, counseling/discussion Other specified counseling documented in this encounter Administered Medications Inactive Administered Medications - up to 3 most recent administrations Medication Order MAR Action Action Date Dose Rate Site albuterol-ipratropium (Duoneb) inhalation solution 3 mL 3 mL, Nebulizer, ONCE, On Sat05/08/23 at 1515, For 1 dose, 3 mL = 0.5 mg ipratropium/ 2.5 mg albuterol Given 05/08/2023 3:15 PM EST 3 mL albuterol-ipratropium (Duoneb) inhalation solution 3 mL 3 mL, Nebulizer, ONCE, On Sat05/08/23 at 1730, For 1 dose, 3 mL = 0.5 mg ipratropium/ 2.5 mg albuterol Given 05/08/2023 5:08 PM EST 3 mL albuterol-ipratropium (Duoneb) inhalation solution 3 mL 3 mL, Nebulizer, RESPQID, First dose on Sat05/09/23 at 0700, Until Discontinued, 3 mL = 0.5 mg ipratropium/ 2.5 mg albuterol Given 05/11/2023 10:29 AM EST 3 mL Given 05/11/2023 8:27 AM EST 3 mL Given 05/10/2023 6:26 PM EST 3 mL atorvaSTATin (Lipitor) tab 10 mg 10 mg, Oral, [id number], First dose on Sat05/09/23 at 0900, Until Discontinued, In the morning. Given 05/11/2023 9:33 AM EST 10 mg Given 05/10/2023 8:01 AM EST 10 mg Given 05/09/2023 7:57 AM EST 10 mg Enoxaparin (Lovenox) inj 40 mg 40 mg, Subcutaneous, Daily(AM), First dose on Sat05/09/23 at 0900, Until Discontinued, If patient is on warfarin, inform provider if daily INR value is 2 or greater! Given 05/11/2023 9:36 AM EST 40 mg Abdom en Left Upper Given 05/10/2023 8:01 AM EST 40 mg Ab domen Left Upper Given 05/09/2023 7:57 AM EST 40 mg Ab domen Left Lower Ymfzfpafcae-Mvsetpifygxa-Tziwrootvm (Trelegy Ellipta) 200-62.5-25 MCG/ACT inhaler 1 Puff 1 Puff, Inhalation, RESPDAILY, First dose on Sat05/09/23 at 0700, Until Discontinued Given 05/11/2023 8:27 AM EST 1 Pu ff Given 05/10/2023 8:01 AM EST 1 Puff Given 05/09/2023 7:17 AM EST 1 Puff home medication stored in pharmacy Daily(AM), First dose on 05/11/23 at 0900, Until Discontinued, Routine, when the patient is ready for discharge contact pharmacy Ioversol (Optiray 320) inj 125 mL 125 mL, Intravenous, ONCE, On Sat05/08/23 at 1700, For 1 dose, Radiology Medication Routing (Non-IR) Given 05/08/2023 4:30 PM EST 125 mL losartan (Cozaar) tab 25 mg 25 mg, Oral, QPM-1999, First dose on Sat05/08/23 at 2100, Until Discontinued Given 05/10/2023 8:41 PM EST 25 mg Given 05/09/2023 7:30 PM EST 25 mg Given 05/08/2023 11:06 PM EST 25 mg magnesium sulfate 1 g in d5w 100mL LOCKED DOSE 1 g, IV Piggyback, ONCE, 1 dose, On Sat05/08/23 at 1845, Administer over 60 Minutes Restarted 05/08/2023 6:43 PM EST 1 g/hr 100 mL/hr New Bag 05/08/2023 6:31 PM EST 1 g 100 mL/hr methylPREDNISolone sodium succ (SOLU-Medrol) inj 40 mg 40 mg, IV Push, ONCE, On Sat05/08/23 at 1615, For 1 dose Given 05/08/2023 3:44 PM EST 40 mg methylPREDNISolone sodium succ (SOLU-Medrol) inj 40 mg 40 mg, Intravenous, Daily(AM), First dose on Sat05/09/23 at 0900, Until Discontinued Given 05/11/2023 9:34 AM EST 40 m g Given 05/10/2023 8:01 AM EST 40 mg Given 05/09/2023 7:57 AM EST 40 mg multivitamin (Mvi) 1 Tablet 1 Tablet, Oral, Daily(AM), First dose on Sat05/09/23 at 0900, Until Discontinued Given 05/11/2023 9:33 AM EST 1 Ta blet Given 05/10/2023 8:01 AM EST 1 Tablet Given 05/09/2023 7:57 AM EST 1 Tablet omeprazole (PriLOSEC) cap 20 mg 20 mg, Oral, Daily(AM), First dose on Sat05/09/23 at 0900, Until Discontinued Given 05/11/2023 9:34 AM EST 20 mg Given 05/10/2023 8:01 AM EST 20 mg Given 05/09/2023 7:57 AM EST 20 mg oxygen GAS Inhalation, OXYGEN, First dose (after last modification) on Camila 05/09/23 at 0000, Until Discontinued, Device/Managed by: HFNC, Goal SPO2 (%): Other, Lower-limit SPO2 (%): 88, Upper-limit SPO2 (%): 90, Initial Flow Rate (LPM): 10, Initial FiO2 (%): 10, Titration Interval: Q2 minutes and as needed., Notify Provider: For sudden DECREASE in resting SPO2 to less than 85% and when escalating delivery device., Humidify Oxygen On 05/11/2023 8:00 AM EST Oxygen On 05/11/2023 12:00 AM EST Oxygen On 05/10/2023 4:00 PM EST Saline (Nasogel) nasal gel Each Nostril, PRN Other, nasal dryness, Starting on Sat05/10/23 at 1458, Until 05/11/23 at 1825, Apply small amount to inside of nostril Saline ([place]) nasal spray 1 [place], Nasal, PRN Other, Nasal dryness, Starting on Sat05/10/23 at 1459, Until 05/11/23 at 1825 Given 05/10/2023 10:21 PM EST 1 [place] sodium chloride 0.9 % flush/inj 3 mL 3 mL, IV Push, PRN Other, Line Patency, Starting on Sat05/08/23 at 2019, Until 05/11/23 at 1825, Do not flush if lock, PICC, or central line not in place, IV infusing or unable to flush documented in this encounter Active and Recently Administered Medications Times are shown in EST. Scheduled Medication Order 05/09/2023 05/10/2023 05/11/2023 albuterol-ipratropium (Duoneb) inhalation solution 3 mL 3 mL, Nebulizer, RESPQID, First dose on Camila 05/09/23 at 0700, Until Discontinued, 3 mL = 0.5 mg ipratropium/ 2.5 mg albuterol 0716 (Given - Provider: Joanna Alfonso, NATURAL SCIENCES PROFESSOR)1029 (Given - Provider: Joanna Alfonso, NATURAL SCIENCES PROFESSOR)1535 (Given - Provider: Coty Wren, PERSONNEL MONITOR)1916 (Given - Provider: Coty Wren, GASTON) 0800 (Given - Provider: Joanna Alfonso RRT)1038 (Given - Provider: Magalys Hall, NATURAL SCIENCES PROFESSOR)1427 (Given - Provider: Magalys Hall RRT)1826 (Given - Provider: Magalsy Hall NATURAL SCIENCES PROFESSOR) 0827 (Given - Provider: Joslyn Acevedo RRT)1029 (Given - Provider: Joslyn Acevedo RRT) atorvaSTATin (Lipitor) tab 10 mg 10 mg, Oral, [id number], First dose on Camila 05/09/23 at 0900, Until Discontinued, In the morning. 0757 (Given - Provider: Gladis Yi RN) 0801 (Given - Provider: Kusum Sims RN) 0933 (Given - Provider: Nida Wahl, NICK) Enoxaparin (Lovenox) inj 40 mg 40 mg, Subcutaneous, Daily(AM), First dose on Camila 05/09/23 at 0900, Until Discontinued, If patient is on warfarin, inform provider if daily INR value is 2 or greater! 0757 (Given - Provider: Gladis Yi RN) 0801 (Given - Provider: Kusum Sims, NICK) 0936 (Given - Provider: Nida Wahl, RN) Fluticasone-Umeclidiniu m-Vilanterol (Trelegy Ellipta) 200-62.5-25 MCG/ACT inhaler 1 Puff 1 Puff, Inhalation, RESPDAILY, First dose on Camila 05/09/23 at 0700, Until Discontinued 07 (Given - Provider: Joanna Alfonso RRT) 08 (Given - Provider: Joanna Alfonso RRT) 826 (Given - Provider: Joslyn Acevedo, ANA) home medication stored in pharmacy Daily(AM), First dose on Sat05/11/23 at 0900, Until Discontinued, Routine, when the patient is ready for discharge contact pharmacy 09 (Order Check Addressed - Provider: Nida Wahl RN) losartan (Cozaar) tab 25 mg 25 mg, Oral, QPM-1999, First dose on Sat05/08/23 at 2100, Until Discontinued 1929 (Given - Provider: Nicol Umanzor RN) 2040 (Given - Provider: Nicol Umanzor RN) methylPREDNISolone sodium succ (SOLU-Medrol) inj 40 mg 40 mg, Intravenous, Daily(AM), First dose on Camila 05/09/23 at 0900, Until Discontinued 075 (Given - Provider: Gladis Yi RN) 08 (Given - Provider: Kusum Sims RN) 0934 (Given - Provider: Nida Wahl, NICK) multivitamin (Mvi) 1 Tablet 1 Tablet, Oral, Daily(AM), First dose on Camila 05/09/23 at 0900, Until Discontinued 075 (Given - Provider: Gladis Yi RN) 08 (Given - Provider: Kusum Sims RN) 0933 (Given - Provider: Nida Wahl, NICK) omeprazole (PriLOSEC) cap 20 mg 20 mg, Oral, Daily(AM), First dose on Camila 05/09/23 at 0900, Until Discontinued 756 (Given - Provider: Gladis Yi RN) 08 (Given - Provider: Kusum Sims RN) 0934 (Given - Provider: Nida Wahl, NICK) oxygen GAS Inhalation, OXYGEN, First dose (after last modification) on Camila 05/09/23 at 0000, Until Discontinued, Device/Managed by: HFNC, Goal SPO2 (%): Other, Lower-limit SPO2 (%): 88, Upper-limit SPO2 (%): 90, Initial Flow Rate (LPM): 10, Initial FiO2 (%): 10, Titration Interval: Q2 minutes and as needed., Notify Provider: For sudden DECREASE in resting SPO2 to less than 85% and when escalating delivery device., Humidify 0000 (Oxygen On - Provider: Jie Armijo, NICK)0800 (Oxygen On - Provider: Gladis Yi, NICK)1600 (Oxygen On - Provider: Gladis Yi RN) 0000 (Oxygen On - Provider: Nicol Umanzor RN)0800 (Oxygen On - Provider: Kusum Sims RN - Comment: 95% on 10L IMNC)1600 (Oxygen On - Provider: Daylin Franks LPN) 0000 (Oxygen On - Provider: Nicol Umanzor RN)0800 (Oxygen On - Provider: Nida Wahl RN) PRN Medication Order 05/09/2023 05/10/2023 05/11/2023 Saline (Nasogel) nasal gel Each Nostril, PRN Other, nasal dryness, Starting on Sat05/10/23 at 1458, Until 05/11/23 at 1825, Apply small amount to inside of nostril Saline ([place]) nasal spray 1 [place], Nasal, PRN Other, Nasal dryness, Starting on Sat05/10/23 at 1459, Until 05/11/23 at 1825 2221 (Given - Provider: Citlaly Umanzor RN) sodium chloride 0.9 % flush/inj 3 mL 3 mL, IV Push, PRN Other, Line Patency, Starting on Sat05/08/23 at 2019, Until 05/11/23 at 1825, Do not flush if lock, PICC, or central line not in place, IV infusing or unable to flush documented in this encounter Additional Health Concerns Infection Onset Date Last Indicated Resolved Time Respiratory Rule-Out 05/08/2023 05/08/2023 024 3:26 PM EST COVID-19 Rule-Out 05/08/2023 05/08/2023 05/08/2023 3:26 PM EST documented as of this encounter Advance Directives Latest [...] the patient have Health Care Power of Career Information Specialist? No Code Status History Code Status Date Activated Date Inactivated Comments Limited Code 11/26/2022 8:55 PM 12/04/2022 10:12 PM This order reflects the patients wishes and were consensually agreed upon. Question Answer Comments Discussion of Advance Directives occurred with: Patient Does the patient have a Living Will? No Does the patient have Health Care Power of Career Information Specialist? No Bag Valve Device? No Intubation? No Cardiac Compressions? Yes Defibrillation? Yes Synchronized Cardioversion? Yes External Pacemaker? Yes Cardiac Drugs? Yes Care Teams Assistant Chief Engineer Relationship Specialty Start Date End Date Rizwana Antunez MD [address] [place] [address] PCP - General Internal Medicine 03/28/22 documented as of this encounter
--- OUTSIDE RECORDS SUMMARY | 2023-09-27 14:27 | External Medical Summary ---
Author Name Unknown Address Unknown Organization K1F:LABORATORY [facility] - [address] [place] [address] Laboratory Report Ordering Provider Test Date Status SHREYAS MOLINA 05/08/2023 15:10:00 Final Exclude Heart Failure: <300 pg/mL
Diagnose Heart Failure:
Age <50 yr: >450 pg/mL
50-75 yr: >900 pg/mL
>75 yr: >1800 pg/mL
GFR is 30-59 mL/min: >1200 pg/mL or Age- adjusted values
GFR <30 mL/min: do not use, not reliable

Prognostic threshold: 1000 pg/mL Observation Date Value Abnormality Reference (Units ) Status BNP, Pro-hormone 05/08/2023 15:10:00 187 <30 0 (pg/mL) Final Performing Location LABORATORY [facility] - [address] [place] [address]
--- OUTSIDE RECORDS SUMMARY | 2023-09-27 14:27 | External Medical Summary ---
Author Name Unknown Address Unknown Organization K1F:LABORATORY [facility] - [address] [facility]. [place] [address] Laboratory Report Ordering Provider Test Date Status SHREYAS MOLINA 05/08/2023 15:10:00 Final Observation Date Value Abnormality Reference (Units ) Status SYNC LEUKOCYTES IN BLOOD BY AUTOMATED COUNT 05/08/2023 15:10:00 12.02 Above high normal 4.00-10.80 (K/uL) Final Segs 05/08/2023 15:10:00 89.2 Above high normal 40.0-75.0 (%) Final Lymphs % 05/08/2023 15:10:00 7.3 Below low normal 18.0-42.0 (%) Final Monos 05/08/2023 15:10:00 3.0 1.0-11.0 (%) Final Eosinophils 05/08/2023 15:10:00 0.0 0.0-6.0 (%) Final Basos 05/08/2023 15:10:00 0.1 0.0-2.0 (%) Final Immature Granulocyte, Percent 05/08/2023 15:10:00 0.4 0.0-2.0 (%) Final Absolute Segs 05/08/2023 15:10:00 10.72 Above high normal 1.80-7.70 (K/uL) Final Lymphs, absolute 05/08/2023 15:10:00 0.88 Below low normal 1.00-4.80 (K/ul) Final Monos, Abs 05/08/2023 15:10:00 0.36 0.00-1.10 (K/uL) Final Eos, Abs 05/08/2023 15:10:00 0.00 0.00-0.70 (K/uL) Final Basos, Abs 05/08/2023 15:10:00 0.01 0.00-0.20 (K/uL) Final Immature Granulocytes, Number 05/08/2023 15:10:00 0.05 0.00-0.20 (K/uL) Final Performing Location LABORATORY [facility] - [facility] [address] [place] [address]
--- OUTSIDE RECORDS SUMMARY | 2023-09-27 14:27 | External Medical Summary ---
Author Name Unknown Address Unknown Organization K1F:LABORATORY [facility] - [address] [place] [address] Laboratory Report Ordering Provider Test Date Status KIMBERLEY RUELAS 05/09/2023 04:55:00 Final Warfarin Therapy
INR: 2 .0-3.0 conventional anticoagulation
INR: 2.5- 3.5 high intensity anticoagulation Observation Date Value Abnormality Reference (Units ) Status PT 05/09/2023 04:55:00 14.5 11.6-15.2 (seconds) Final INR 05/09/2023 04:55:00 1.1 0.8-1.2 Final Performing Location LABORATORY [facility] - [address] [place] [address]
--- OUTSIDE RECORDS SUMMARY | 2023-09-27 14:27 | External Medical Summary | Summary of Care ---
Author Name Unknown Organization [facility] Address [address] [facility] [place] [address] Phone [phone] Care Team Providers Care Dairy Powder Mixer Operator Name Role Phone Rizwana Antunez MD Primary Care Provider [phone] Encounter Details Date Type Department Care Team (Late st Contact Info) Description 04/19/2023 Telephone Pulmonary Medicine Cresencio Jon[place] [address] [place] [phone] Frank Finch MD [address] [facility] [place] [phone] Allergies Active Allergy Reactions Criticality Noted Date Comments Lisinopril Cough 05/04/2022 documented as of this encounter (statuses as of 05/08/2023) Medications Medication Sig Dispensed Refills Start Date End Date Status Atorvastatin Calcium 10 MG Oral Tablet (Lipitor)Indication s:Type 2 diabetes mellitus with hemoglobin A1c goal of less than 7.0% (FORM[facility]LY [facility]),Dyslipidemia, goal LDL below 100 TAKE 1 [...] lab 12/28/22. 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 90 Tablet 0 4 Active predniSONE 10 MG Oral Tablet (Deltasone) Take 1 Tablet by mouth every other day for 180 doses. 90 Tablet 1 4 04/11/19 25 Active Pirfenidone 801 MG Oral Tablet (Esbriet)Indication s:Chronic idiopathic pulmonary fibrosis (HCC),Chronic respiratory failure with hypoxia, on home oxygen therapy ([facility]) Take 801 mg by mouth in the morning and 801 mg at noon and 801 mg before bedtime. one pill three times a day. 90 Tablet 3 4 05/07/19 24 Discontinued Hospital, Clinic, or Other Facility Administered Medication Ordered Dose Route Frequency Start Date End Date Status Albuterol Sulfate (Proventil) (2.5 MG/3ML) 0.083% inhalation solution 2.5 mgIndications:IPF (idiopathic pulmonary fibrosis) (FORM[facility]LY [facility]) 2.5 mg NEBULIZER PRN 12/05/2022 12/05/2023 Active Albuterol Sulfate (Proventil) (5 MG/ML) 0.5% *conc* inhalation solution 2.5 mgIndications:IPF (idiopathic pulmonary fibrosis) (FORM[facility]LY [facility]) 2.5 mg NEBULIZER PRN 12/05/2022 12/05/2023 Active Benralizumab (Fasenra) prefilled syringe 30 mgIndications:Severe persistent asthma without complication 30 mg SC [id number] 12/20/2022 06/06/2023 Acti ve documented as of [...] LNP-s, No Preserve , Mir-sucrose, Ages 12+ ([employer]) 01/08/2022 COVID-19, mRNA, LNP-s, PF, B ooster, [...] 5:09 PM EST Sexual Orientation Straight 01/28/2022 5 :09 PM EST Job Start Date Occupation Industry [...] encounter Miscellaneous Notes * Telephone Encounter - Jeremiah Hernandez OSA - 04/19/2023 7:58 AM EST Orders in 04/19 02 adapt documented in this encounter Plan of Treatment Upcoming Encounters Date Type Department Care Team (Late st Contact Info) Description 05/08/2023 3:00 PM EST Office Visit Palliative Medicine [facility] [address] [facility], [place] [phone] Amarilys Ramirez MD [address] [place], [place] [address] [address] 05/14/2023 9:00 AM EST PulmDiagnostic Pulmonary Function Lab, [facility] [address] [facility] [place] [address] [place], [address] 132 [facility] [place] [address] 06/13/2023 1:00 PM EDT Nurse Only Pulmonary Medicine, [facility] [address] [facility] [place] [address] Gw, Nurse Pulmonary [address] [facility], [place] [address] 06/20/2023 10:00 AM EDT Laboratory Laboratory [facility] [address] [facility] [place] [phone] [place], Lab [address] [place] [address] 06/25/2023 1:20 PM EDT Office Visit General Internal Medicine [facility] [address] [facility] [place] [address] Rizwana Antunez MD 200 [facility], [place] [address] 07/25/2023 1:30 PM EDT Office Visit Cardiology, [facility] 132 [place] [address] Ni Kay PA-C [address] [place] [address] 07/29/2023 10:00 AM EDT Imaging Radiology [address] 132 [place] [address] 12/02/2023 11:00 AM EDT [facility] [address] [facility] [address] 04/02/2024 1:00 PM EST Imaging Radiology [address] 132 [place] [address] Health Maintenance Due Date Last Done Comments [...] Mammogram 04/01/2024 04/01/2023, 03/28/2022 Cologuard 02/16/2025 02/16/2022, 1208/2021, 02/13/2022 Colorectal Cancer Screening 02/16/2025 Lipid Panel 09/21/2027 09/20/2022, 04/12, 01/29/2022, Additional history exists DXA Scan 11/28/2031 [...] the patient have Health Care Power of Insulation Engineman? No Bag Valve Device? No Intubation? No Cardiac Compressions? Yes Defibrillation? Yes Synchronized Cardioversion? Yes External Pacemaker? Yes Cardiac Drugs? Yes Care Teams Dairy Powder Mixer Operator Relationship Specialty Start Date End Date Rizwana Antunez MD [address] [facility] [place] [address] PCP - General Internal Medicine 03/28/22 documented as of this encounter
--- OUTSIDE RECORDS SUMMARY | 2023-09-27 14:27 | External Medical Summary | Summary of Care ---
Author Name Unknown Organization [facility] Address [address] [place] [address] Phone [phone] Care Team Providers Care Secretary Of State Name Role Phone Rizwana Antunez MD Primary Care Provider [phone] Reason for Visit * Reason Onset Date Comments Medication Pre-auth 05/08/2023 Pirfenidone 534Mg Encounter Details Date Type Department Care Team (Late st Contact Info) Description 05/08/2023 Telephone Pulmonary Medicine Cornelio [place] [address] [place] [phone] Frank Finch MD [address] [place] [address] [phone] Medication Pre-auth (Pirfenidone 534Mg) Allergies Active Allergy Reactions Criticality Noted Date Comments Lisinopril Cough 05/04/2022 documented as of this encounter (statuses as of 05/10/2023) Medications Medication Sig Dispensed Refills Start Date End Date Status Atorvastatin Calcium 10 MG Oral Tablet (Lipitor)Indication s:Type 2 diabetes mellitus with hemoglobin A1c goal of less than 7.0% (HCC),Dyslipidemia, goal LDL below 100 TAKE 1 TABLET BY MOUTH IN THE MORNING. 90 Tablet 3 07/07/2022 Suspended Additional Information Ipratropium-Albuter ol 0.5-2.5 (3) MG/3ML Inhalation Solution Inhale 3 mL via nebulizer every 6 hours as needed. 0 11/05/2022 Suspended Probiotic Acidophilus Oral CapsuleIndications: Hospital discharge follow-up,Coagulase negative Staphylococcus bacteremia 2 daily 0 11/08/2022 Suspended Loratadine 10 MG Oral Tablet (Claritin)Indicatio ns:Environmental and seasonal allergies Take 1 Tablet by mouth in the morning. 30 Tablet 11 12/10/2022 Suspended Additional Information Patient taking differently:10 mg OralPRN, Rhinitis, Reported on 12/24/2022 Fasenra 30 MG/ML Subcutaneous Solution Prefilled Syringe Inject 1 mL under the skin Every Month. Every 4 weeks 0 12/04/2022 Suspended Multi-Vitamins Oral Tablet Take 1 Tablet by mouth in the morning. 0 Suspended Repaglinide 0.5 MG Oral Tablet (Prandin)Indication s:Type 2 diabetes mellitus with hemoglobin A1c goal of less than 7.0% (FORM[facility]LY [facility]),Elevated BUN,Dehydration Take 1 Tablet by mouth in the morning and 1 Tablet at noon and 1 Tablet in the evening. Take before meals. If sugar >140 (using temporarily as holding metformin due to gfr 33 with diuretic use, STOP torsemide and potassium), stat lab 12/28/22. 90 Tablet 0 12/24/2022 Suspended Additional Information Patient not taking.Reported on 01/24/2023 oxygen IN GAS 6 lpm during the day and 4 lpm at bedtime, titrate to 10-15 liters on exertion to keep saturation >90% since hosp DC 1 Each 0 01/10/2023 Suspended Additional Information RadhaHighlightphere 160-9-4.8 MCG/ACT Inhalation Aerosol (Budeson-Glycopyrro l-Formoterol) Inhale 2 Puffs by mouth in the morning and 2 Puffs in the evening. 10.7 g 11 01/16/2023 Suspended Additional Information Omeprazole 20 MG Oral Tablet Delayed Release Take 1 Tablet by mouth in the morning. 90 Tablet 3 01/17/2023 Suspended Additional Information metFORMIN HCl ER 500 MG Oral Tablet Extended Release 24 Hour (Glucophage XR)Indications:Type 2 diabetes mellitus with hemoglobin A1c goal of less than 7.0% ([facility]),Chronic respiratory failure with hypoxia, on home oxygen therapy ([facility]),IPF (idiopathic pulmonary fibrosis) ([facility]),jail (current) use of systemic steroids Take 2 Tablets by mouth daily with dinner. (Restart 1 tab 01/18/2023) inc 2 tabs 01/30/2023, inc 3 tabs 03/26/2023 60 Tablet 0 03/26/2023 Suspended Additional Information Losartan Potassium 50 MG Oral Tablet (Cozaar) Take 0.5 Tablets by mouth every evening. 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 90 Tablet 0 04/16/2023 Suspended Additional Information predniSONE 10 MG Oral Tablet (Deltasone) Take 1 Tablet by mouth every other day for 180 doses. 90 Tablet 1 04/18/2023 5 Suspended Additional Information Azithromycin 500 MG Oral Tablet (Zithromax) Take 1 Tablet by mouth in the morning for 5 days. Take each dose with meal.. 5 Tablet 0 05/06/2023 4 Suspended Additional Information Pirfenidone 801 MG Oral Tablet (Esbriet)Indication s:Chronic idiopathic pulmonary fibrosis (HCC),Chronic respiratory failure with hypoxia, on home oxygen therapy ([facility]) Take 801 mg by mouth in the morning and 801 mg at noon and 801 mg before bedtime. one pill three times a day. 270 Tablet 5 05/07/2023 4 Suspended Additional Information Hospital, Clinic, or Other Facility Administered Medication Ordered Dose Route Frequency Start Date End Date Status Albuterol Sulfate (Proventil) (2.5 MG/3ML) 0.083% inhalation solution 2.5 mgIndications:IPF (idiopathic pulmonary fibrosis) ([facility]) 2.5 mg NEBULIZER PRN 12/05/2022 12/05/2023 Active Albuterol Sulfate (Proventil) (5 MG/ML) 0.5% *conc* inhalation solution 2.5 mgIndications:IPF (idiopathic pulmonary fibrosis) ([facility]) 2.5 mg NEBULIZER PRN 12/05/2022 12/05/2023 Active Benralizumab (Fasenra) prefilled syringe 30 mgIndications:Severe persistent asthma without complication 30 mg SC [id number] 12/20/2022 06/06/2023 Acti ve documented as of this encounter (statuses as of 05/10/2023) Active Problems Problem Noted Date Diagnosed Date Dyspnea on minimal exertion 05/08/2023 Asthma, severe [...] as of this encounter (statuses as of 05/10/2023) Resolved Problems Problem Noted Date Diagnosed Date Resolved Date Acute pulmonary edema 11/30/20222022 Bacteremia due to Staphylococcus epidermidis 3 12/10/2022 Multifocal pneumonia 11/26/2022 023 Severe persistent asthma with exacerbation 07/31/2022 12/10/2022 Severe obesity with body mas s index (BMI) of 35.0 to 39.9 with serious comorbidity 11/20/2021 documented as of this encounter (statuses as of 05/10/2023) Immunizations Name Administration Dates Next Due COVID-19 [...] 05/08/2023 9:04 AM EST Received fax from [employer]. Patients Pirfenidone 534 mg Has been approved 05/04/23 - 05/04/23. documented in this encounter Plan of Treatment Upcoming Encounters Date Type Department Care Team (Late st Contact Info) Description 05/14/2023 9:00 AM EST PulmDiagnostic Pulmonary Function Lab, [facility] 132 [facility] [place] [address] [place], [address] [place] [address] 06/13/2023 1:00 PM EDT Nurse Only Pulmonary Medicine, [facility] [address] [place] [address] Gw, Nurse Pulmonary 132 [facility] [place] [address] 06/20/2023 10:00 AM EDT Laboratory Laboratory [facility] [place] [address] [place] [address] [phone] [place], Lab [place] [address] [place] [address] 06/25/2023 1:20 PM EDT Office Visit [facility] [place] [address] [place] [address] Rizwana Antunez MD [address] [place] [address] 07/25/2023 1:30 PM EDT Office Visit Cardiology, [facility] [address] [facility] [place] [address] Ni Kay PA-C [address] [place] [address] 07/29/2023 10:00 AM EDT Imaging Radiology [address] [facility] [place] [address] 12/02/2023 11:00 AM EDT Imaging Radiology, [facility] [address] [facility] [address] 04/02/2024 1:00 PM EST Imaging Radiology [address] [facility] [place] [address] Health Maintenance Due Date Last Done Comments [...] Inactivated Comments Full Code 05/08/2023 8:20 PM This order reflects the patients wishes and were consensually agreed upon. Question Answer Comments Discussion of Advance Directives occurred with: Patient Does the patient have a Living Will? No Does the patient have Health Care Power of Parts Puller? No Code Status History Code Status Date Activated Date Inactivated Comments Limited Code 11/26/2022 8:55 PM 12/04/2022 10:12 PM This order reflects the patients wishes and were consensually agreed upon. Question Answer Comments Discussion of Advance Directives occurred with: Patient Does the patient have a Living Will? No Does the patient have Health Care Power of Parts Puller? No Bag Valve Device? No Intubation? No Cardiac Compressions? Yes Defibrillation? Yes Synchronized Cardioversion? Yes External Pacemaker? Yes Cardiac Drugs? Yes Care Teams Secretary Of State Relationship Specialty Start Date End Date Rizwana Antunez MD [address] [place] [address] PCP - General Internal Medicine 03/28/22 documented as of this encounter
--- OUTSIDE RECORDS SUMMARY | 2023-09-27 14:27 | External Medical Summary ---
Author Name Unknown Address Unknown Organization K1F:LAB[facility]ATORY [facility] - [address] [place] [address] Laboratory Report Ordering Provider Test Date Status SHREYAS MOLINA 05/08/2023 15:10:00 Final Observation Date Value Abnormality Reference (Units ) Status WBC, Total 05/08/2023 15:10:00 12.02 Above high normal 4.00-10.80 (K/uL) Final RBC 05/08/2023 15:10:00 4.00 3.85-5.15 (M/uL) Final Hemoglobin 05/08/2023 15:10:00 11.3 Below low normal 12.0-15.3 (g/dL) Final HCT 05/08/2023 15:10:00 36.6 36.0-45.2 (%) Final MCV 05/08/2023 15:10:00 91.5 81.5-97.5 (fL) Final MCH 05/08/2023 15:10:00 28.3 27.0-34.0 (pg) Final MCHC 05/08/2023 15:10:00 30.9 32.0-36.0 (g/dL) Final RDW 05/08/2023 15:10:00 15.5 11.5-15.5 (%) Final Platelets 05/08/2023 15:10:00 271 140-400 (K/uL) Final MPV 05/08/2023 15:10:00 10.6 6.6-11.1 (fL) Final Nucleated erythrocytes/100 leukocytes [Ratio] in Blood by Automated count 05/08/2023 15:10:00 0 <=0 (/100 WBCs) Final Performing Location [facility] - [address] [place] [address]
--- OUTSIDE RECORDS SUMMARY | 2023-09-27 14:27 | External Medical Summary ---
Author Name Unknown Address Unknown Organization K1F:LABORATORY [address] [place] [address] Laboratory Report Ordering Provider Test Date Status SHREYAS MOLINA 05/08/2023 14:34:44 Final SYMPTOMATIC Observation Date Value Abnormality Reference (Units ) Status Adenovirus DNA [Presence] in Nasopharynx by ДМИТРИЙ with non-probe detection 05/08/2023 14:34:44 Negative Negative Final Human coronavirus 229E RNA [Presence] in Nasopharynx by ДМИТРИЙ with non-probe detection 05/08/2023 14:34:44 Negative Negative Final Human coronavirus HKU1 RNA [Presence] in Nasopharynx by ДМИТРИЙ with non-probe detection 05/08/2023 14:34:44 Negative Negative Final Human coronavirus NL63 RNA [Presence] in Nasopharynx by ДМИТРИЙ with non-probe detection 05/08/2023 14:34:44 Negative Negative Final Human coronavirus OC43 RNA [Presence] in Nasopharynx by ДМИТРИЙ with non-probe detection 05/08/2023 14:34:44 Negative Negative Final SARS-CoV-2 (COVID-19) RNA [Presence] in Nasopharynx by ДМИТРИЙ with non-probe detection 05/08/2023 14:34:44 Negative Negative Final Human metapneumovirus RNA [Presence] in Nasopharynx by ДМИТРИЙ with non-probe detection 05/08/2023 14:34:44 Negative Negative Final Rhinovirus+Enterovirus RNA [Presence] in Nasopharynx by ДМИТРИЙ with non-probe detection 05/08/2023 14:34:44 Negative Negative Final Influenza virus A RNA [Presence] in Nasopharynx by ДМИТРИЙ with non-probe detection 05/08/2023 14:34:44 Negative Negative Final Influenza virus B RNA [Presence] in Nasopharynx by ДМИТРИЙ with non-probe detection 05/08/2023 14:34:44 Negative Negative Final Parainfluenza virus 1 RNA [Presence] in Nasopharynx by ДМИТРИЙ with non-probe detection 05/08/2023 14:34:44 Negative Negative Final Parainfluenza virus 2 RNA [Presence] in Nasopharynx by ДМИТРИЙ with non-probe detection 05/08/2023 14:34:44 Negative Negative Final Parainfluenza virus 3 RNA [Presence] in Nasopharynx by ДМИТРИЙ with non-probe detection 05/08/2023 14:34:44 Negative Negative Final Parainfluenza virus 4 RNA [Presence] in Nasopharynx by ДМИТРИЙ with non-probe detection 05/08/2023 14:34:44 Negative Negative Final Respiratory syncytial virus RNA [Presence] in Nasopharynx by ДМИТРИЙ with non-probe detection 05/08/2023 14:34:44 Negative Negative Final Bordetella pertussis.pertussis toxin promoter region [Presence] in Nasopharynx by ДМИТРИЙ with non-probe detection 05/08/2023 14:34:44 Negative Negative Final Chlamydophila pneumoniae DNA [Presence] in Nasopharynx by ДМИТРИЙ with non-probe detection 05/08/2023 14:34:44 Negative Negative Final Mycoplasma pneumoniae DNA [Presence] in Nasopharynx by ДМИТРИЙ with non-probe detection 05/08/2023 14:34:44 Negative Negative Final Bordetella parapertussis [id number] DNA [Presence] in Nasopharynx by ДМИТРИЙ with non-probe detection 05/08/2023 14:34:44 Negative Negative Final
The primers that detect Rhinovirus may cross react with some Enterorviruses. The validation of bronchial specimens, tracheal aspirates, and throats for this assay was developed and performance characteristics determined by [employer]. The validation of alternate specimen types has not been cleared or approved by the U.S. Food and Drug Administration (FDA). It has been determined that such clearance or approval is not necessary. [facility] - [address] [place] [address] [facility] [address]
--- OUTSIDE RECORDS SUMMARY | 2023-09-27 14:27 | External Medical Summary ---
Author Name Unknown Address Unknown Organization K1F:LABORATORY [facility] - [address] [place] [address] Laboratory Report Ordering Provider Test Date Status TIMOTHY DOTY 05/10/2023 05:22:00 Final Observation Date Value Abnormality Reference (Units ) Status BUN 05/10/2023 05:22:00 34 Above high normal 6-20 (mg/dL) Final Creatinine 05/10/2023 05:22:00 0.9 0.5-1.0 (mg/dL) Final Glomerular filtration rate/1.73 sq M.predicted [Volume Rate/Area] in Serum, Plasma or Blood by Creatinine-based formula (CKD-EPI) 05/10/2023 05:22:00 67 >=60 (mL/min) Final eGFR is calculated based on the CKD-EPI 2020 equation SODIUM 05/10/2023 05:22:00 142 135-146 (m mol/L) Final Potassium 05/10/2023 05:22:00 3.7 3.5-5.1 (m mol/L) Final Cl 05/10/2023 05:22:00 106 98-107 (mm ol/L) Final CO2 05/10/2023 05:22:00 24 22-32 (mmo l/L) Final Anion gap 05/10/2023 05:22:00 12 7-15 (mmol /L) Final Glucose 05/10/2023 05:22:00 115 70-120 (mg /dL) Final Calcium 05/10/2023 05:22:00 9.3 8.4-10.2 ( mg/dL) Final Performing Location LABORATORY [facility] - [address] [place] [address]
--- OUTSIDE RECORDS SUMMARY | 2023-09-27 14:27 | External Medical Summary ---
Author Name Unknown Address Unknown Organization K1F:[facility] - [address] [place] [address] Laboratory Report Ordering Provider Test Date Status KIMBERLEY RUELAS 05/09/2023 04:56:00 Final Observation Date Value Abnormality Reference (Units ) Status Phosphate 05/09/2023 04:56:00 4.0 2.5-4.8 (m g/dL) Final Performing Location LAB[facility]ATORY [facility] - [address] [place] [address]
--- OUTSIDE RECORDS SUMMARY | 2023-09-27 14:27 | External Medical Summary | Summary of Care ---
Author Name Unknown Organization [facility] Address [address] [facility] [place] [address] Phone [phone] Care Team Providers Care Vat Cleaner Name Role Phone Rizwana Antunez MD Primary Care Provider [phone] Reason for Visit * Reason Onset Date Comments Medication Pre-auth 05/08/2023 Pirfenidone 534Mg Encounter Details Date Type Department Care Team (Late st Contact Info) Description 05/08/2023 Telephone Pulmonary Medicine Cornelio Mays [address] [address] Frank Finch MD [address] [id number] Medication Pre-auth (Pirfenidone 534Mg) Allergies Active Allergy [...] [place]),IPF (idiopathic pulmonary fibrosis) ([facility]),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 Take 2 [...] [place]),IPF (idiopathic pulmonary fibrosis) ([facility]),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 Patients Pirfenidone 534 mg Has been approved 05/04/23 - 05/04/23. documented in this encounter Plan of Treatment Upcoming Encounters Date Type Department Care Team (Late st Contact Info) Description 05/08/2023 3:00 PM EST Office Visit Palliative Medicine [facility] [address] [place] [phone] Amarilys Ramirez MD [address] [place] [address] [place] [address] 05/14/2023 9:00 AM EST PulmDiagnostic Pulmonary Function Lab, [facility] 132 [facility] [place] [address] [place], Pft 132 [facility] [place] [address] 06/13/2023 1:00 PM EDT Nurse Only Pulmonary Medicine, [facility] 132 [facility] [place] [address] Gw, Nurse Pul[facility] [address] 06/20/2023 10:00 AM EDT Laboratory Laboratory [facility] [address] [place] [phone] [place], Lab [facility] 200 [facility] [place] [address] 06/25/2023 1:20 PM EDT Office Visit General Internal Medicine [facility] 200 [facility] [place] [address] Rizwana Antunez MD 200 [facility] [place] [address] 07/25/2023 1:30 PM EDT Office Visit Cardiology, [facility] 132 [facility] [place] [address] Ni Kay PA-C 400 [facility] [place] [address] 07/29/2023 10:00 AM EDT Imaging Radiology [address] 132 [facility] [place] [address] 12/02/2023 11:00 AM EDT Imaging Radiology, [facility] [address] [facility] [place] [address] 04/02/2024 1:00 PM EST Imaging Radiology [address] 132 [facility] [place] [address] Health Maintenance Due Date Last Done Comments [...] the patient have Health Care Power of Loan Broker? No Bag Valve Device? No Intubation? No Cardiac Compressions? Yes Defibrillation? Yes Synchronized Cardioversion? Yes External Pacemaker? Yes Cardiac Drugs? Yes Care Teams Vat Cleaner Relationship Specialty Start Date End Date Rizwana Antunez MD [address] [place] [address], [place] [address] PCP - General Internal Medicine 03/28/22 documented as of this encounter
--- OUTSIDE RECORDS SUMMARY | 2023-09-27 14:27 | External Medical Summary ---
Author Name Unknown Address Unknown Organization K1[facility] - [address] [place] [address] Laboratory Report Ordering Provider Test Date Status KIMBERLEY RUELAS 05/09/2023 04:56:00 Final Observation Date Value Abnormality Reference (Units ) Status Magnesium 05/09/2023 04:56:00 2.5 1.5-2.6 (m g/dL) Final Performing Location [facility] - [address] [place] [address]
--- OUTSIDE RECORDS SUMMARY | 2023-09-27 14:27 | External Medical Summary ---
Author Name Unknown Address Unknown Organization K1F:[facility] - [address] [place] [address] Laboratory Report Ordering Provider Test Date Status SHREYAS MOLINA 05/08/2023 15:10:00 Final Observation Date Value Abnormality Reference (Units ) Status Troponin T 05/08/2023 15:10:00 12 <=14 (ng/ L) Final Performing Location LAB[facility]ATORY [facility] - [address] [place] [address]
--- OUTSIDE RECORDS SUMMARY | 2023-09-27 14:27 | External Medical Summary ---
Author Name Unknown Address Unknown Organization K1F:[facility] - [address] [place] [address] Laboratory Report Ordering Provider Test Date Status TIMOTHY DOTY 05/11/2023 03:11:00 Final Observation Date Value Abnormality Reference (Units ) Status WBC, Total 05/11/2023 03:11:00 10.95 Above high normal 4.00-10.80 (K/uL) Final RBC 05/11/2023 03:11:00 3.28 3.85-5.15 (M/uL) Final Hemoglobin 05/11/2023 03:11:00 9.4 Below low normal 12.0-15.3 (g/dL) Final HCT 05/11/2023 03:11:00 30.3 Below low normal 36.0-45.2 (%) Final MCV 05/11/2023 03:11:00 92.4 81.5-97.5 (fL) Final MCH 05/11/2023 03:11:00 28.7 27.0-34.0 (pg) Final MCHC 05/11/2023 03:11:00 31.0 32.0-36.0 (g/dL) Final RDW 05/11/2023 03:11:00 16.0 11.5-15.5 (%) Final Platelets 05/11/2023 03:11:00 228 140-400 (K/uL) Final MPV 05/11/2023 03:11:00 11.0 6.6-11.1 (fL) Final Nucleated erythrocytes/100 leukocytes [Ratio] in Blood by Automated count 05/11/2023 03:11:00 0 <=0 (/100 WBCs) Final Performing Location LABORATORY [facility] - [address] [place] [address]
--- OUTSIDE RECORDS SUMMARY | 2023-09-27 14:27 | External Medical Summary ---
Author Name Unknown Address Unknown Organization K1F:LABORATORY [facility] - [address] [place] [address] Laboratory Report Ordering Provider Test Date Status TIMOTHY DOTY 05/10/2023 05:22:00 Final Observation Date Value Abnormality Reference (Units ) Status WBC, Total 05/10/2023 05:22:00 10.93 Above high normal 4.00-10.80 (K/uL) Final RBC 05/10/2023 05:22:00 3.34 3.85-5.15 (M/uL) Final Hemoglobin 05/10/2023 05:22:00 9.8 Below low normal 12.0-15.3 (g/dL) Final HCT 05/10/2023 05:22:00 30.9 Below low normal 36.0-45.2 (%) Final MCV 05/10/2023 05:22:00 92.5 81.5-97.5 (fL) Final MCH 05/10/2023 05:22:00 29.3 27.0-34.0 (pg) Final MCHC 05/10/2023 05:22:00 31.7 32.0-36.0 (g/dL) Final RDW 05/10/2023 05:22:00 16.1 11.5-15.5 (%) Final Platelets 05/10/2023 05:22:00 244 140-400 (K/uL) Final MPV 05/10/2023 05:22:00 11.0 6.6-11.1 (fL) Final Nucleated erythrocytes/100 leukocytes [Ratio] in Blood by Automated count 05/10/2023 05:22:00 0 <=0 (/100 WBCs) Final Performing Location LABORATORY [facility] - [address] [address]
--- OUTSIDE RECORDS SUMMARY | 2023-09-27 14:27 | External Medical Summary ---
Author Name Unknown Address Unknown Organization K1F:[facility] - [address] [facility]. [place] [address] Laboratory Report Ordering Provider Test Date Status SHREYAS MOLINA 05/08/2023 15:10:00 Final Observation Date Value Abnormality Reference (Units ) Status BUN 05/08/2023 15:10:00 25 Above high normal 6-20 (mg/dL) Final Creatinine 05/08/2023 15:10:00 0.9 0.5-1.0 (mg/dL) Final Glomerular filtration rate/1.73 sq M.predicted [Volume Rate/Area] in Serum, Plasma or Blood by Creatinine-based formula (CKD-EPI) 05/08/2023 15:10:00 68 >=60 (mL/min) Final eGFR is calculated based on the CKD-EPI 2020 equation SODIUM 05/08/2023 15:10:00 138 135-146 (m mol/L) Final Potassium 05/08/2023 15:10:00 4.5 3.5-5.1 (m mol/L) Final Cl 05/08/2023 15:10:00 103 98-107 (mm ol/L) Final CO2 05/08/2023 15:10:00 22 22-32 (mmo l/L) Final Anion gap 05/08/2023 15:10:00 13 7-15 (mmol /L) Final Glucose 05/08/2023 15:10:00 175 Above high normal 70 -120 (mg/dL) Final Albumin 05/08/2023 15:10:00 3.6 Below low normal 3.8 -5.0 (g/dL) Final AST (Aspartate aminotransferase) 05/08/2023 15:10:00 19 10-35 (U/L) Fin al Alk Phos 05/08/2023 15:10:00 61 35-130 (U/ L) Final Bilirubin, Total 05/08/2023 15:10:00 0.2 <=1 .2 (mg/dL) Final Calcium 05/08/2023 15:10:00 9.7 8.4-10.2 ( mg/dL) Final Protein 05/08/2023 15:10:00 7.9 6.0-8.3 (g /dL) Final ALT (Alanine aminotransferase) 05/08/2023 15:10:00 10 10-35 (U/L) Kyle martinez Performing Location LABORATORY [facility] - [facility] [place] [address] [place] [address]
--- OUTSIDE RECORDS SUMMARY | 2023-09-27 14:27 | External Medical Summary ---
Author Name Unknown Address Unknown Organization K1F:LABORATORY [facility] - [address] [place] [address] Laboratory Report Ordering Provider Test Date Status JOSEFINA LUNDY 05/08/2023 15:10:00 Final Less than 0.5 ng/mL: Low ris k for progression to sepsis. Review patients condition for localized infections.

0.5 to 2.0 ng/mL: Intermediate risk for progresion to sepsis. Review underlying conditions. Recommend repeat PCT after 6 hours has elapsed.

Greater than 2.0 ng/mL: high risk for progression to sepsis unless other causes are known. Observation Date Value Abnormality Reference (Units ) Status Procalcitonin [Mass/volume] in Serum or Plasma by Immunoassay 05/08/2023 15:10:00 0.08 <0.10 (ng/mL) Final Performing Location LABORATORY [facility] - [address] [address]
--- OUTSIDE RECORDS SUMMARY | 2023-09-27 14:27 | External Medical Summary ---
Author Name Unknown Address Unknown Organization K1F:[facility] - [address] [address] Laboratory Report Ordering Provider Test Date Status TIMOTHY DOTY 05/11/2023 03:11:00 Final Observation Date Value Abnormality Reference (Units ) Status BUN 05/11/2023 03:11:00 32 Above high normal 6-20 (mg/dL) Final Creatinine 05/11/2023 03:11:00 0.9 0.5-1.0 (mg/dL) Final Glomerular filtration rate/1.73 sq M.predicted [Volume Rate/Area] in Serum, Plasma or Blood by Creatinine-based formula (CKD-EPI) 05/11/2023 03:11:00 68 >=60 (mL/min) Final eGFR is calculated based on the CKD-EPI 2020 equation SODIUM 05/11/2023 03:11:00 143 135-146 (m mol/L) Final Potassium 05/11/2023 03:11:00 3.9 3.5-5.1 (m mol/L) Final Cl 05/11/2023 03:11:00 105 98-107 (mm ol/L) Final CO2 05/11/2023 03:11:00 25 22-32 (mmo l/L) Final Anion gap 05/11/2023 03:11:00 13 7-15 (mmol /L) Final Glucose 05/11/2023 03:11:00 131 Above high normal 70 -120 (mg/dL) Final Calcium 05/11/2023 03:11:00 9.8 8.4-10.2 ( mg/dL) Final Performing Location [facility] - [address] [address]
--- OUTSIDE RECORDS SUMMARY | 2023-09-27 14:28 | External Medical Summary | Summary of Care ---
Author Name Unknown Organization [facility] Address [address] [place] [address] Phone [phone] Care Team Providers Care Garbage Depot Worker Name Role Phone Rizwana Antunez MD Primary Care Provider [phone] Reason for Visit * Reason Onset Date Comments Precert Denied 04/09/2023 Fasenra Encounter Details Date Type Department Care Team (Late st Contact Info) Description 04/09/2023 Telephone Pulmonary Medicine Cornelio Mays [address] [phone] Frank Finch MD [address] [id number] Precert Denied (Fasenra ) Allergies Active Allergy Reactions Criticality Noted Date Comments Lisinopril Cough 05/04/2022 documented as of this encounter (statuses as of 04/11/2023) Medications Medication Sig Dispensed Refills Start Date End Date Status Pirfenidone 801 MG Oral Tablet (Esbriet)Indications :Chronic idiopathic pulmonary fibrosis (HCC),Chronic respiratory failure with hypoxia, on home oxygen therapy (HCC) Take 801 mg by mouth in the morning and 801 mg at noon and 801 mg before bedtime. one pill three times a day. 90 Tablet 3 05/18/2022 Active Atorvastatin Calcium 10 MG Oral Tablet [...] the morning. 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 Start 12/11/2022, bmp on . 90 Tablet 0 01/18/2023 Active predniSONE 20 MG Oral Tablet (Deltasone) Take 2 Tablets by mouth daily for 7 days, THEN 1.5 Tablets daily for 7 days, THEN 1 Tablet daily for 7 days, THEN 0.5 Tablets daily for 7 days, THEN 0.25 Tablets daily for 7 days. 37 Tablet 0 2023 04/12/2023 Active metFORMIN HCl ER 500 MG Oral Tablet Extended Release 24 Hour (Glucophage XR)Indications:Type 2 diabetes mellitus with hemoglobin A1c goal of less than 7.0% ([facility]),Chronic respiratory failure with hypoxia, on home oxygen therapy ([facility]),IPF (idiopathic pulmonary fibrosis) ([facility]),retirement (current) use of systemic steroids Take 2 Tablets by mouth daily with dinner. (Restart 1 tab 01/18/2023) inc 2 tabs 01/30/2023, inc 3 tabs 03/26/2023 60 Tablet 0 03/26/2023 Active Losartan Potassium 50 MG Oral Tablet (Cozaar) Take 0.5 Tablets by mouth every evening. Restart 03/26/2023-has at home 0 03/26/2023 Active Hospital, Clinic, or Other Facility Administered Medication Ordered Dose Route Frequency Start Date End Date Status Albuterol Sulfate (Proventil) (2.5 MG/3ML) 0.083% inhalation solution 2.5 mgIndications:IPF (idiopathic pulmonary fibrosis) ([facility]) 2.5 mg NEBULIZER PRN 12/05/2022 12/05/2023 Active Albuterol Sulfate (Proventil) (5 MG/ML) 0.5% *conc* inhalation solution 2.5 mgIndications:IPF (idiopathic pulmonary fibrosis) ([facility]) 2.5 mg NEBULIZER PRN 12/05/2022 12/05/2023 Active Benralizumab (Fasenra) prefilled syringe 30 mgIndications:Severe persistent asthma without complication 30 mg SC [id number] 12/20/2022 06/06/2023 Acti ve Albuterol Sulfate (Proventil) (5 MG/ML) 0.5% *conc* inhalation solution 2.5 mgIndications:Chronic idiopathic pulmonary fibrosis (HCC) 2.5 mg NEBULIZER PRN 04/09/2022 04/09/2023 Ended Albuterol Sulfate (Proventil) (2.5 MG/3ML) 0.083% inhalation solution 2.5 mgIndications:Chronic idiopathic pulmonary fibrosis (HCC) 2.5 mg NEBULIZER PRN 04/09/2022 04/09/2023 Ended documented as of this encounter (statuses as of 04/11/2023) Active Problems Problem Noted Date Diagnosed Date Pulmonary hypertension 12/06/2022 Right foot drop 12/02/2022 [...] as of this encounter (statuses as of 04/11/2023) Resolved Problems Problem Noted Date Diagnosed Date Resolved Date Acute pulmonary edema 11/30/20222022 Acute on chronic respiratory failure with hypoxia 11/27/2022 12/10/2022 Bacteremia due to Staphylococcus epidermidis 12/10/2022 Multifocal pneumonia 11/26/2022 023 Severe persistent asthma with exacerbation 07/31/2022 12/10/2022 Severe obesity with body mas s index (BMI) of 35.0 to 39.9 with serious comorbidity 11/20/2021 documented as of this encounter (statuses as of 04/11/2023) Immunizations Name Administration Dates Next Due COVID-19 [...] encounter Miscellaneous Notes * Telephone Encounter - Nicolasa Lafleur OSA - 04/11/2023 10:31 AM EST Patient aware and scheduled for a sooner follow-up with Dr. Finch, 04/19/23 @ 1:00 pm. Patient's insurance is requiring patient to have a sooner follow-up so they know, that patient is benefiting from Fasenra injections. * Telephone Encounter - Kamini Allen LPN - 04/11/2023 9:57 AM EST Pt will need seen to get this prior auth. Please call and schedule this pt sooner than 05/14/23. Thanks. * Telephone Encounter - Lilibeth Chadwick OSA - 04/11/2023 8:45 AM EST Images from the original note were not included. AUTH REQUEST DENIED: APPEAL CAN BE DONE BY CALLING * Telephone Encounter - Lilibeth Chadwick OSA - 04/10/2023 10:57 AM EST INFORMATION SENT. * Telephone Encounter - Kamini Allen LPN - 04/10/2023 10:11 AM EST This was approved from 11/11/22 to 05/12/23. She is just now due for her second injection 04/17. Don't expect report of improvement prior to 3rd dose. Please resend with this information. * Telephone Encounter - Lilibeth Chadwick OSA - 04/10/2023 8:26 AM EST Pt insurance is asking for documentation that: -Has asthma control improved on Fasenra treatment as demonstrated by a reduction in the frequency and/or severity of symptoms and exacerbations? *OV notes from 01/14 were sent with request but they do not reflect any improvement in the notes. * Telephone Encounter - Lilibeth Chadwick OSA - 04/09/2023 11:45 AM EST IS PT SELF INJECTING AT HOME OR GETTING CLINIC INJECTIONS? Also is this request for 30 mg ever 8 weeks or 4 weeks? * Telephone Encounter - Mel Goodwin LPN - 04/09/2023 8:55 AM EST Pulmonary Medicine Pre-Cert Request Medication/Disease State Information: Medication: Fasenra Diagnosis (including ICD-10): severe persistent asthma without complication Medication(s) Tried/Failed/Contraindicated: Prednisone burst twice within 12 months. See corresponding visit note(s) for additional supporting clinical information. Office Information: Prescriber: Dr. Frank Bazzi documented in this encounter Plan of Treatment Upcoming Encounters Date Type Department Care Team (Late st Contact Info) Description 04/17/2023 1:00 PM EST Nurse Only Pulmonary Medicine, [facility] 132 [facility] [place], [place] [address] Gw, Nurse Pulmonary 132 [facility] [place] [address] 04/18/2023 1:00 PM EST Office Visit Pulmonary Medicine, [facility] 132 [facility] [place] [address] Frank Finch MD [facility] [address] [facility] [place] [address] 05/08/2023 3:00 PM EST Office Visit Palliative Medicine [facility] 200 [place] [address] Amarilys Ramirez MD [address] [place] [address] 05/14/2023 9:00 AM EST PulmDiagnostic Pulmonary Function Lab, [facility] 132 [facility] [place] [address] West, Pft [address] [facility] [place] [address] 06/20/2023 10:00 AM EDT Laboratory Laboratory [facility] 200 [facility] [place], [place] [id number] [place], Lab [facility] 200 [facility] [place], [place] [address] 06/25/2023 1:20 PM EDT Office Visit General Internal Medicine [facility] 200 [facility] [place], [place] [address] Rizwana Antunez MD 200 [facility] [place], [place] [address] 07/25/2023 1:30 PM EDT Office Visit Cardiology, [facility] [address] [place] [address] Ni Kay PA-C [address] [place] [address] 07/29/2023 10:00 AM EDT Imaging Radiology [address] [place] [address] 12/02/2023 11:00 AM EDT [facility] [address] [facility] [address] 04/02/2024 1:00 PM EST Imaging Radiology [address] [place] [address] Health Maintenance Due Date Last Done Comments Hepatitis C Screening 1967 DTaP,Tdap,and Td Vaccines (1 - Tdap) 1968 Colonoscopy 1994 Sigmoidoscopy 1994 Hepatitis B (1 of 3 - Risk 3-dose series) 2009 Zoster Vaccines (2 of 3) 05/21/2014 03/26/2014 Diabetic Eye Exam 01/17/2020 01/16/2019 Depression Screening 05/04/2023 05/04/2022 HbA1c 09/20/2023 03/22/2023, 11/09, 05/03/2022, Additional history exists Diabetic Foot Exam 01/31/2024 01/30/2023, 01/29/2022 GFR 03/22/2024 03/22/2023, 01/10, 01/08/2023, Additional history exists Albumin/Creatinine Ratio 03/26/2024 03/26/2023, 01/10 Fecal Occult Blood Test 03/26/2024 03/26/2023 Mammogram 04/01/2024 04/01/2023, 03/28/2022 Cologuard 02/16/2025 02/16/2022, 12/08/2021, 02/13/2022 Colorectal Cancer Screening 02/16/2025 Lipid Panel [...] the patient have Health Care Power of Novelty Maker? No Bag Valve Device? No Intubation? No Cardiac Compressions? Yes Defibrillation? Yes Synchronized Cardioversion? Yes External Pacemaker? Yes Cardiac Drugs? Yes Care Teams Garbage Depot Worker Relationship Specialty Start Date End Date Rizwana Antunez MD [address] [place] [address] [place] [address] PCP - General Internal Medicine 03/28/22 documented as of this encounter
--- OUTSIDE RECORDS SUMMARY | 2023-09-27 14:28 | External Medical Summary | Summary of Care ---
Author Name Unknown Organization [facility] Address [address] [place] [address] Phone [phone] Care Team Providers Care Skein Tier Name Role Phone Rizwana Antunez MD Primary Care Provider [phone] Reason for Visit * Reason Onset Date Comments Precert Denied 04/09/2023 Fasenra Encounter Details Date Type Department Care Team (Late st Contact Info) Description 04/09/2023 Telephone Pulmonary Medicine Cornelio Mays [address] [place] [address] [address] Frank Finch MD [address] [phone] Precert Denied (Fasenra ) Allergies Active Allergy [...] hemoglobin A1c goal of less than 7.0% ([facility]),Chronic respiratory failure with hypoxia, on home oxygen therapy ([facility]),IPF (idiopathic pulmonary fibrosis) ([facility]),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 [...] hemoglobin A1c goal of less than 7.0% ([facility]),Chronic respiratory failure with hypoxia, on home oxygen therapy ([facility]),IPF (idiopathic pulmonary fibrosis) ([facility]),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) use of systemic steroids Take 2 [...] inhalation solution 2.5 mgIndications:IPF (idiopathic pulmonary fibrosis) ([facility]) 2.5 mg NEBULIZER PRN 12/05/2022 12/05/2023 Active Albuterol Sulfate (Proventil) (5 MG/ML) 0.5% *conc* inhalation solution 2.5 mgIndications:IPF (idiopathic pulmonary fibrosis) ([facility]) 2.5 mg NEBULIZER PRN 12/05/2022 12/05/2023 Active Benralizumab (Fasenra) prefilled syringe 30 mgIndications:Severe persistent asthma without complication 30 mg SC [id number] 12/20/2022 06/06/2023 Acti ve Albuterol Sulfate (Proventil) [...] (15 years old or older) No 11/27/19 Cognitive Status Response Date of Assessm ent Because of a physical, menta l, or emotional condition, do you have serious difficulty concentrating, remembering, or making decisions? (5 years old or older) No 11/26/2022 documented as of this encounter Miscellaneous Notes * Telephone Encounter - Kamini Allen LPN [...] 1:00 PM EST Nurse Only Pulmonary Medicine, [facility] [address] [facility] [place] [address] Gw, Nurse Pulmonary [address] [facility] [place] [address] 05/08/2023 3:00 PM EST Office Visit Palliative Medicine [facility] [address] [place], [place] [address] Amarilys Ramirez MD [address] [place] [address], [place] [address] 05/14/2023 9:00 AM EST PulmDiagnostic Pulmonary Function Lab, [facility] 132 [facility] [place] [address] [place], Pft 132 [facility] [place] [address] 05/14/2023 10:00 AM EST Office Visit Pulmonary Medicine, [facility] [address] [facility] [place] [address] Frank Finch MD [address] [facility] [address] 06/20/2023 10:00 AM EDT Laboratory Laboratory [facility] [address] [place] [address] [place], Lab [facility] 200 [facility] [place], [place] [address] 06/25/2023 1:20 PM EDT Office Visit General Internal Medicine [facility] 200 [facility] [place] [address] Rizwana Antunez MD 200 [facility] [place], [place] [address] 07/25/2023 1:30 PM EDT Office Visit Cardiology, [facility] 132 [facility] [place] [address] Ni Kay PA-C [address] [place] [address] 07/29/2023 10:00 AM EDT Imaging Radiology [facility] [facility] [address] [facility] [place] [address] 12/02/2023 11:00 AM EDT Imaging Radiology, [place] [address] [facility] [place] [address] 04/02/2024 1:00 PM EST Imaging Radiology [facility] [address] [place] [address] Health Maintenance Due Date Last Done Comments [...] the patient have Health Care Power of Advertising Analyst? No Bag Valve Device? No Intubation? No Cardiac Compressions? Yes Defibrillation? Yes Synchronized Cardioversion? Yes External Pacemaker? Yes Cardiac Drugs? Yes Care Teams Skein Tier Relationship Specialty Start Date End Date Rizwana Antunez MD [address] [place] [address] PCP - General Internal Medicine 03/28/22 documented as of this encounter
--- OUTSIDE RECORDS SUMMARY | 2023-09-27 14:28 | External Medical Summary | Summary of Care ---
Author Name Unknown Organization [facility] Address [address] [place] [facility] [place] [address] Phone [phone] Care Team Providers Care Perfusionist Name Role Phone Rizwana Antunez MD Primary Care Provider [phone] Reason for Visit * Reason Comments Follow Up Encounter Details Date Type Department Care Team (Late st Contact Info) Description 04/18/2023 1:00 PM EST Office Visit Pulmonary Medicine, [facility] [address] [facility] [place] [phone] Frank Finch MD [address] [facility] [phone] Interstitial lung disease (HCC)*; IPF (idiopathic pulmonary fibrosis) (HCC); Dependence on continuous supplemental oxygen; Pulmonary hypertension (HCC); HTN, goal below 130/80; Severe persistent asthma, unspecified whether complicated Allergies Active Allergy Reactions Criticality Noted Date Comments Lisinopril Cough 05/04/2022 documented as of this encounter (statuses as of 04/18/2023) Medications Medication Sig Dispensed Refills Start Date End Date Status Atorvastatin Calcium 10 MG Oral Tablet (Lipitor)Indications :Type 2 diabetes mellitus with hemoglobin A1c goal of less than 7.0% ([facility]),Dyslipidemia, goal LDL below 100 TAKE 1 [...] hemoglobin A1c goal of less than 7.0% ([facility]),Elevated BUN,Dehydration Take 1 Tablet by mouth [...] hemoglobin A1c goal of less than 7.0% (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) Take 801 mg by mouth in the morning and 801 mg at noon and 801 mg before bedtime. one pill three times a day. 90 Tablet 3 04/11/2023 Active Empagliflozin 10 MG Oral Tablet (Jardiance)Indicatio ns:Type 2 diabetes mellitus with hemoglobin A1c goal of less than 7.0% ([facility]),Chronic respiratory failure with hypoxia, on home oxygen therapy ([facility]),IPF (idiopathic pulmonary fibrosis) (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 90 Tablet 0 04/16/2023 Active predniSONE 10 MG Oral Tablet (Deltasone) Take 1 Tablet by mouth every other day for 180 doses. 90 Tablet 1 04/18/2023 04/11/2024 Active Hospital, Clinic, or Other Facility Administered Medication Ordered Dose Route Frequency Start Date End Date Status Albuterol Sulfate (Proventil) (2.5 MG/3ML) 0.083% inhalation solution 2.5 mgIndications:IPF (idiopathic pulmonary fibrosis) ([facility]) 2.5 mg NEBULIZER PRN 12/05/2022 12/05/2023 Active Albuterol Sulfate (Proventil) (5 MG/ML) 0.5% *conc* inhalation solution 2.5 mgIndications:IPF (idiopathic pulmonary fibrosis) ([facility]) 2.5 mg NEBULIZER PRN 12/05/2022 12/05/2023 Active Benralizumab (Fasenra) prefilled syringe 30 mgIndications:Severe persistent asthma without complication 30 mg SC [id number] 12/20/2022 06/06/2023 Acti ve documented as of this encounter (statuses as of 04/18/2023) Active Problems Problem Noted Date Diagnosed Date [...] as of this encounter (statuses as of 04/18/2023) Resolved Problems Problem Noted Date Diagnosed Date Resolved Date Acute pulmonary edema 11/30/20222022 Acute on chronic respiratory failure with hypoxia 11/27/2022 12/10/2022 Bacteremia due to Staphylococcus epidermidis 12/10/2022 Multifocal pneumonia 11/26/2022 023 Severe persistent asthma with exacerbation 07/31/2022 12/10/2022 Severe obesity with body mas s index (BMI) of 35.0 to 39.9 with serious comorbidity 11/20/2021 documented as of this encounter (statuses as of 04/18/2023) Immunizations Name Administration Dates Next Due COVID-19 mRNA, LNP-s, No Pre serve, 2-Dose Series (Moderna) 04/26/2020,03/29/2020 COVID-19, LNP-s, No Preserve , Mir-sucrose, Ages 12+ (Medcurrent) 01/08/2022 COVID-19, mRNA, LNP-s, PF, B ooster, [...] Sign Reading Time Taken Comments Blood Pressure 144/80 04/18/2023 12:57 PM EST Pulse 105 04/18/2023 12:57 PM EST Temperature 36.5 C (97.7 F) 04/18/2023 1 2:57 PM EST Respiratory Rate 22 04/18/2023 12:5 7 PM EST Oxygen Saturation 93% 04/18/2023 1:01 PM EST O2 8LPM, rest Inhaled Oxygen Concentration - - Weight 75.3 kg (166 lb) 04/18/2023 12:5 7 PM EST Height 154.9 cm (5' 1") 04/18/2023 12:5 7 PM EST Body Mass Index 31.37 04/18/2023 12:57 PM EST documented in this encounter Functional [...] No 11/26/2022 documented as of this encounter Progress Notes * Frank Finch MD - 04/18/2023 12:55 PM EST 04/18/2023 Pulmonary Medicine, [address] [id number] Nicolasa Gomez 1950 female 73 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 Patient describes improvement/stabilization of respiratory symptoms status while on Fasenra/pirfenidone therapy. Decreased shortness of breath. Did not require emergency room visits or hospitalization. Low-dose prednisone taper being continued. Denies productive cough. Limited exercise tolerance, wants to ambulate, using a walker for assistance. Current bronchodilator regimen includes Breztri twice daily. Physical examination significant for basilar coarse rales most prominent at right base, no evidenceof volume overload, regular cardiac rhythm. CT scan chest from [facility] 2023 shows bilateral subpleural scarring with trace honeycombing along withscattered areas of parenchymal congestion without any effusions or lymphadenopathy. Chest x-ray from November [address] scan from [place] report was reviewed. Bilateral prominent reticular infiltrates consistent with pulmonary fibrosis, most prominent at left lung base. Review of historical diagnostic workup data: IgE [...] 2021. Overall clinical picture shows Severe, persistent asthma with background history of IPF and hypoxicrespiratory failure. Prednisone 10 mg alternate day will be added. Additional bottles for ambulatory oxygen were requested. Patient was advised to contact PCP for mobility household personal assistant device assessment/scooter. Pulmonary clinic follow-up in 2 months to reassess management plan for severe persistent allergic asthma and reassess IPF status. Patient was advised to contact the office with any change in symptomsstatus. Assessment Severe persistent allergic asthma Idiopathic pulmonary fibrosis Hypoxic respiratory failure Severely elevated IgE levels Follow-up: Return in about 6 months (around 10/17/2023). | Check-out note: Moderate Peristent Asthma IPF Chronic Hypoxia Elevated IgE 1946 Failed Prednisone Burst twice within 12 months Plan: C/w Esbriet C/w 12L with activity and 10L Cont at rest/HS C/w current BD Rx Fasenra will be continued Add prednisone 10 mg QOD as MAINTENANCE therapy F/u 2 months 45 minutes of patient evaluation and management time including rhpp-td-veas evaluation, physical examination, discussion of management plan and review of available diagnostic workup. Frank Finch MD Subjective CC: Chief Complaint Patient presents with Follow Up HPI: Nursing Notes: Laura Harding LPN 04/18/23 1307 Addendum Pt for f/u IPF, ILD, chronic resp failure w/ hypoxia. MMRC Dyspnea Scale = 4 (I am too breathless to leave the house or I am breathless when dressing) Interm History/Respiratory Symptoms Cough: occasional, clear-yellow phlegm Hemoptysis: no Sinus Symptoms: no Hospitalizations: no ED Trips: no Triggers: exertion Nocturnal: no problems, sleeps with head elevated CPAP/BiPAP/O2: O2 10 LPM cont Flu Vaccine: 2022 Pneumovax: 2020 Prevnar: 2019 COVID 19: x 6 Objective Filed Vitals: 04/18/23 1257 04/18/23 1301 BP: 144/80 Pulse: 105 Resp: 22 Temp: 36.5 C (97.7 F) TempSrc: Tympanic SpO2: 81% 93% Weight: 75.3 kg (166 lb) Height: 1.549 m (5' 1") Exam: Const: No signs of acute distress present. Head/Face: Normal on inspection. Eyes: Conjunctivae clear. Pupils equal round and reactive to light. ENMT: Oropharynx: No erythema, exudate or masses. Posterior pharynx is normal. Neck: Supple and symmetric. Resp: Respiratory examination as outlined above CV: Rate is regular. Rhythm is regular. No heart murmur appreciated. Extremities: No edema of the lower limbs bilaterally. Abdomen: Positive bowel sounds. Palpation of the abdomen reveals softness, but no distension or tenderness. No palpable hepatosplenomegaly. Musculo: Walks with a normal gait. Skin: Skin is warm and dry. Neuro: Coordination normal. No involuntary movement. Psych: Patient's attitude is cooperative. Mood is normal. Affect is normal. Tests reviewed with the patient: CT CHEST WO CONTRAST Result Date: 04/04/2023 [...] discussed with the patient. HOME MEDICATIONS: predniSONE 10 MG Oral Tablet (Deltasone) Empagliflozin 10 MG Oral Tablet (Jardiance) Pirfenidone 801 MG Oral Tablet (Esbriet) Losartan Potassium 50 MG Oral Tablet (Cozaar) metFORMIN HCl ER 500 MG Oral Tablet Extended Release 24 Hour (Glucophage XR) Breztri Aerosphere 160-9-4.8 MCG/ACT Inhalation Aerosol (Snoxpmw-Svavwjiwgiw-Yuohehikkd) oxygen IN GAS Fasenra 30 MG/ML Subcutaneous Solution Prefilled Syringe Multi-Vitamins Oral Tablet Loratadine 10 MG Oral Tablet (Claritin) Ipratropium-Albuterol 0.5-2.5 (3) MG/3ML Inhalation Solution Probiotic Acidophilus Oral Capsule Atorvastatin Calcium 10 MG Oral Tablet (Lipitor) Omeprazole 20 MG Oral Tablet Delayed Release Repaglinide 0.5 MG Oral Tablet (Prandin) Benralizumab (Fasenra) prefilled syringe 30 mg Albuterol Sulfate (Proventil) (2.5 MG/3ML) 0.083% inhalation solution 2.5 mg Albuterol Sulfate (Proventil) (5 MG/ML) 0.5% *conc* inhalation solution 2.5 mg ROS: No reported [...] Osteoporosis Sister Breast Cancer Sister Hypertension Sister Review of patient's allergies indicates: Allergen Reactions Lisinopril Cough documented in this encounter Nursing Notes * Laura Harding LPN - 04/18/2023 12:52 PM EST Pt for f/u IPF, ILD, chronic resp failure w/ hypoxia. MMRC Dyspnea Scale = 4 (I am too breathless to leave the house or I am breathless when dressing) Interm History/Respiratory Symptoms Cough: occasional, clear-yellow phlegm Hemoptysis: no Sinus Symptoms: no Hospitalizations: no ED Trips: no Triggers: exertion Nocturnal: no problems, sleeps with head elevated CPAP/BiPAP/O2: O2 10 LPM cont Flu Vaccine: 2022 Pneumovax: 2020 Prevnar: 2019 COVID 19: x 6 documented in this encounter Plan of Treatment Upcoming Encounters Date Type Department Care Team (Late st Contact Info) Description 05/08/2023 3:00 PM EST Office Visit Palliative Medicine [facility] [address] [place] [address] Amarilys Ramirez MD [address] [place] [address] [place] [address] 05/14/2023 9:00 AM EST PulmDiagnostic Pulmonary Function Lab, [facility] 132 [facility] [place] [address] West, [address] [place] [address] 06/13/2023 1:00 PM EDT Nurse Only Pulmonary Medicine, [facility] 132 [facility] [place] [address] Gw, Nurse Pulmonary 132 [facility] [place] [address] 06/20/2023 10:00 AM EDT Laboratory Laboratory [facility] [address] [place] [phone] [place], Lab [address] [facility] [place] [address] 06/25/2023 1:20 PM EDT Office Visit General Internal Medicine [facility] [place] [address] [place] [address] Rizwana Antunez MD [address] [facility] [place] [address] 07/25/2023 1:30 PM EDT Office Visit Cardiology, [facility] 132 [facility] [place] [address] Ni Kay PA-C [address] [facility] [address] 07/29/2023 10:00 AM EDT Imaging Radiology [facility] 1st [facility] [address] [place] [address] 12/02/2023 11:00 AM EDT Imaging Radiology, [facility] [address] [facility] [place] [address] 04/02/2024 1:00 PM EST Imaging Radiology [address], [place] 132 [facility] [place] [address] Health Maintenance Due Date Last Done Comments [...] as of this encounter Visit Diagnoses Diagnosis Interstitial lung disease (HCC)- Primary Postinflammatory pulmonary fibrosis IPF (idiopathic pulmonary fibrosis) (HCC) Idiopathic pulmonary fibrosis Dependence on continuous supplemental oxygen Pulmonary hypertension (HCC) Other chronic pulmonary heart diseases HTN, goal below 130/80 Unspecified essential hypertension Severe persistent asthma, unspecified whether complicated documented in this encounter Advance Directives Latest Code Status on File Code Status Date Activated Date Inactivated Comments Limited Code 11/26/2022 8:55 PM 12/04/2022 10:12 PM This order reflects the patients wishes and were consensually agreed upon. Question Answer Comments Discussion of Advance Directives occurred with: Patient Does the patient have a Living Will? No Does the patient have Health Care Power of Banking Attorney? No Bag Valve Device? No Intubation? No Cardiac Compressions? Yes Defibrillation? Yes Synchronized Cardioversion? Yes External Pacemaker? Yes Cardiac Drugs? Yes Care Teams Perfusionist Relationship Specialty Start Date End Date Rizwana Antunez MD [address] [place] [id number] PCP - General Internal Medicine 03/28/22 documented as of this encounter
--- OUTSIDE RECORDS SUMMARY | 2023-09-27 14:28 | External Medical Summary | Summary of Care ---
Author Name Unknown Organization [facility] Address [address] [place] [address] Phone [phone] Care Team Providers Care Assistant Inventory Manager Name Role Phone Rizwana Antunez MD Primary Care Provider [phone] Reason for Visit * Reason Onset Date Comments Precert Denied 04/09/2023 Fasenra Encounter Details Date Type Department Care Team (Late st Contact Info) Description 04/09/2023 Telephone Pulmonary Medicine Cornelio Mays [address] [place] [address] [phone] Frank Finch MD [address] [place] [address] [phone] Precert Denied (Fasenra ) Allergies Active Allergy [...] hemoglobin A1c goal of less than 7.0% ([facility]),Chronic respiratory failure with hypoxia, on home oxygen therapy ([facility]),IPF (idiopathic pulmonary fibrosis) ([facility]),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 [...] hemoglobin A1c goal of less than 7.0% ([facility]),Chronic respiratory failure with hypoxia, on home oxygen therapy ([facility]),IPF (idiopathic pulmonary fibrosis) ([facility]),[facility] (current) use of systemic steroids Take 2 [...] inhalation solution 2.5 mgIndications:IPF (idiopathic pulmonary fibrosis) ([facility]) 2.5 mg NEBULIZER PRN 12/05/2022 12/05/2023 Active Albuterol Sulfate (Proventil) (5 MG/ML) 0.5% *conc* inhalation solution 2.5 mgIndications:IPF (idiopathic pulmonary fibrosis) ([facility]) 2.5 mg NEBULIZER PRN 12/05/2022 12/05/2023 Active Benralizumab (Fasenra) prefilled syringe 30 mgIndications:Severe persistent asthma without complication 30 mg SC [id number] 12/20/2022 06/06/2023 Acti ve Albuterol Sulfate (Proventil) [...] 1:00 PM EST Nurse Only Pulmonary Medicine, [facility] 132 [facility] [place] [address] Gw, Nurse Pulmonary [address] [facility] [place] [address] 05/08/2023 3:00 PM EST Office Visit Palliative Medicine [facility] [address] [place], [place] [address] Amarilys Ramirez MD [address] [place] [address], [place] [address] 05/14/2023 9:00 AM EST PulmDiagnostic Pulmonary Function Lab, [facility] 132 [facility] [place] [address] West, Pft 132 [facility] [place] [address] 05/14/2023 10:00 AM EST Office Visit Pulmonary Medicine, [facility] 132 [facility] [place] [address] Frank Finch MD [address] [facility] [address] 06/20/2023 10:00 AM EDT Laboratory Laboratory [facility] [address] [place] [phone] [place], Lab [facility] 200 [facility] [place], [place] [address] 06/25/2023 1:20 PM EDT Office Visit General Internal Medicine [facility] 200 [facility] [place] [address] Rizwana Antunez MD 200 [facility] [place], [place] [address] 07/25/2023 1:30 PM EDT Office Visit Cardiology, [facility] 132 [facility] [place] [address] Ni Kay PA-C [address] [place] [address] 07/29/2023 10:00 AM EDT Imaging Radiology [facility]st [facility] [address] [facility] [place] [address] 12/02/2023 11:00 AM EDT Imaging Radiology, [place] 784630 [facility] [place] [address] 04/02/2024 1:00 PM EST Imaging Radiology [facility]st [facility] [address] [place] [address] Health Maintenance Due Date Last Done Comments [...] the patient have Health Care Power of Satellite Project Site Monitor? No Bag Valve Device? No Intubation? No Cardiac Compressions? Yes Defibrillation? Yes Synchronized Cardioversion? Yes External Pacemaker? Yes Cardiac Drugs? Yes Care Teams Assistant Inventory Manager Relationship Specialty Start Date End Date Rizwana Antunez MD [address] [place] [address] PCP - General Internal Medicine 03/28/22 documented as of this encounter
--- OUTSIDE RECORDS SUMMARY | 2023-09-27 14:28 | External Medical Summary | Summary of Care ---
Author Name Unknown Organization [facility] Address [address] [place] [address] Phone [phone] Care Team Providers Care Aerial Photographer Name Role Phone Rizwana Antunez MD Primary Care Provider [phone] Reason for Visit * Reason Comments eRx-Medication Refill Encounter Details Date Type Department Care Team (Late st Contact Info) Description 04/16/2023 Refill General Internal Medicine [facility] [place], [place] [address] Rizwana Antunez MD 200 [facility] [place] [address] Type 2 diabetes mellitus with hemoglobin A1c goal of less than 7.0% ([facility]); Chronic respiratory failure with hypoxia, on home oxygen therapy ([facility]); IPF (idiopathic pulmonary fibrosis) ([facility]); prison (current) use of systemic steroids Allergies Active Allergy Reactions Criticality Noted Date Comments Lisinopril Cough 05/04/2022 documented as of this encounter (statuses as of 04/16/2023) Medications Medication Sig Dispensed Refills Start Date End Date Status Atorvastatin Calcium 10 MG Oral Tablet (Lipitor)Indication s:Type 2 diabetes mellitus with hemoglobin A1c goal of less than 7.0% ([facility]),Dyslipidemia, goal LDL below 100 TAKE [...] A1c goal of less than 7.0% ([facility]),Elevated BUN,Dehydration Take 1 Tablet by [...] A1c goal of less than 7.0% ([facility]),Chronic respiratory failure with hypoxia, on home oxygen therapy ([facility]),IPF (idiopathic pulmonary fibrosis) (HCC),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 90 Tablet 0 4 Active Empagliflozin 10 MG Oral Tablet (Jardiance)Indicati ons:Type 2 diabetes mellitus with hemoglobin A1c goal of less than 7.0% (HCC),Chronic respiratory failure with hypoxia, on home oxygen therapy (HCC),IPF (idiopathic pulmonary fibrosis) (HCC),prison (current) use of systemic steroids Take 1 Tablet by mouth in the morning. Start 12/11/2022, bmp on . 90 Tablet 0 3 04/16/19 24 Discontinued Hospital, Clinic, or Other Facility [...] persistent asthma without complication 30 mg SC [id number] 12/20/2022 06/06/2023 Acti ve documented as of this encounter (statuses as of 04/16/2023) Active Problems Problem Noted Date Diagnosed Date [...] as of this encounter (statuses as of 04/16/2023) Resolved Problems Problem Noted Date Diagnosed Date Resolved Date Acute pulmonary edema 11/30/20222022 Acute on chronic respiratory failure with hypoxia 11/27/2022 12/10/2022 Bacteremia due to Staphylococcus epidermidis 12/10/2022 Multifocal pneumonia 11/26/2022 023 Severe persistent asthma with exacerbation 07/31/2022 12/10/2022 Severe obesity with body mas s index (BMI) of 35.0 to 39.9 with serious comorbidity 11/20/2021 documented as of this encounter (statuses as of 04/16/2023) Immunizations Name Administration Dates Next Due COVID-19 [...] encounter Miscellaneous Notes * Telephone Encounter - Fritz Erazo RP - 04/16/2023 3:53 PM ESTSigned Prescriptions: Disp Refills Empagliflozin 10 MG Oral Tablet (Jardiance)90 Tab*0 Sig: Take 1 Tablet by mouth in the morning.Authorizing Provider: Lamonte ANTUNEZ User: FRITZ ERAZO-- * Telephone Encounter - Fritz Erazo RP - 04/16/2023 3:52 PM EST Approving 90 days to last to upcoming OV, A1c recheck. Thank you, Fritz Erazo, PharmD Clinical Pharmacist [facility] 04/16/23 3:52 PM [phone] documented in this encounter Plan of Treatment Upcoming Encounters Date Type Department Care Team (Late st Contact Info) Description 04/17/2023 1:00 PM EST Nurse Only Pulmonary Medicine, [facility] 132 [facility] [place] [address] Gw, Nurse Pulmonary [place] [address] 04/18/2023 1:00 PM EST Office Visit Pulmonary Medicine, [address] [place] [address] Frank Finch MD [address] [place] [address] 05/08/2023 3:00 PM EST Office Visit Palliative Medicine [facility] [address] [place], [place] [address] Amarilys Ramirez MD [address] [place] [address] 05/14/2023 9:00 AM EST PulmDiagnostic Pulmonary Function Lab, [facility] 132 [facility] [place] [address] West, Pft 132 [facility] [place] [address] 06/20/2023 10:00 AM EDT Laboratory Laboratory [facility] 200 [facility] [address] [place] [id number] [place], Lab [address] [place], [place] [address] 06/25/2023 1:20 PM EDT Office Visit General Internal Medicine [facility] 200 [facility] [place] [address] Rizwana Antunez MD 200 [facility], [place] [address] 07/25/2023 1:30 PM EDT Office Visit Cardiology, [facility] 132 [facility] [place] [address] Ni Kay PA-C [address] [place] [address] 07/29/2023 10:00 AM EDT Imaging Radiology [facility] 1st [facility] [address] [facility] [place] [address] 12/02/2023 11:00 AM EDT Imaging Radiology, [facility] [address] [facility] [place] [address] 04/02/2024 1:00 PM EST Imaging Radiology [address] [place] [address] Health Maintenance Due Date Last Done Comments [...] (idiopathic pulmonary fibrosis) (HCC) Idiopathic pulmonary fibrosis 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 Question Answer Comments Discussion of Advance Directives occurred with: Patient Does the patient have a Living Will? No Does the patient have Health Care Power of Collaborative Teacher? No Bag Valve Device? No Intubation? No Cardiac Compressions? Yes Defibrillation? Yes Synchronized Cardioversion? Yes External Pacemaker? Yes Cardiac Drugs? Yes Care Teams Aerial Photographer Relationship Specialty Start Date End Date Rizwana Antunez MD 200 [place] [address] PCP - General Internal Medicine 03/28/22 documented as of this encounter
--- OUTSIDE RECORDS SUMMARY | 2023-09-27 14:28 | External Medical Summary | Summary of Care ---
Author Name Unknown Organization [facility] Address [address] [place] [address] Phone [phone] Care Team Providers Care Solvent Recoverer Name Role Phone Rizwana Antunez MD Primary Care Provider [phone] Reason for Visit * Reason Onset Date Comments Medication Refill 04/11/2023 Pirefenidone Encounter Details Date Type Department Care Team (Late st Contact Info) Description 04/11/2023 Refill Pulmonary Medicine Cornelio Mays [address] [place] [phone] Frank Dhaliwal MD [address] [place] [address] [id number] Chronic idiopathic pulmonary fibrosis (HCC)*; Chronic respiratory failure with hypoxia, on home oxygen therapy ([facility]) Allergies Active Allergy Reactions Criticality Noted Date Comments Lisinopril Cough 05/04/2022 documented as of this encounter (statuses as of 04/11/2023) Medications Medication Sig Dispensed Refills Start Date End Date Status Atorvastatin Calcium 10 MG Oral Tablet (Lipitor)Indication s:Type 2 diabetes mellitus with hemoglobin A1c goal of less than 7.0% ([facility]),Dyslipidemia, goal LDL below 100 TAKE 1 TABLET BY MOUTH IN THE MORNING. 90 Tablet 3 07/07/2022 Active Ipratropium-Albuter ol 0.5-2.5 (3) MG/3ML Inhalation [...] A1c goal of less than 7.0% ([facility]),Elevated BUN,Dehydration Take 1 Tablet by mouth [...] 01/17/2023 Active Empagliflozin 10 MG Oral Tablet (Jardiance)Indicati ons:Type 2 diabetes mellitus with hemoglobin A1c goal of less than 7.0% (HCC),Chronic respiratory failure with hypoxia, on home oxygen therapy (HCC),IPF (idiopathic pulmonary fibrosis) (HCC),[facility] (current) use of systemic steroids Take 1 [...] for 7 days. 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 (Restart 1 tab 01/18/2023) inc 2 tabs 01/30/2023, inc 3 tabs 03/26/2023 60 Tablet 0 03/26/2023 Active Losartan Potassium 50 MG Oral Tablet (Cozaar) Take 0.5 Tablets by mouth every evening. Restart 03/26/2023-has at home 0 03/26/2023 Active Pirfenidone 801 MG Oral Tablet (Esbriet)Indication s:Chronic idiopathic pulmonary fibrosis (HCC),Chronic respiratory failure with hypoxia, on home oxygen therapy ([facility]) Take 801 mg by mouth in the morning and 801 mg at noon and 801 mg before bedtime. one pill three times a day. 90 Tablet 3 04/11/2023 Active Pirfenidone 801 MG Oral Tablet (Esbriet)Indication s:Chronic idiopathic pulmonary fibrosis (HCC),Chronic respiratory failure with hypoxia, on home oxygen therapy ([facility]) Take 801 mg by mouth in the morning and 801 mg at noon and 801 mg before bedtime. one pill three times a day. 90 Tablet 3 05/18/2022 4 Discontinue d(Refill) Hospital, Clinic, or Other Facility Administered Medication Ordered Dose Route Frequency Start Date End Date Status Albuterol Sulfate (Proventil) (2.5 MG/3ML) 0.083% inhalation solution 2.5 mgIndications:IPF (idiopathic pulmonary fibrosis) ([facility]) 2.5 mg NEBULIZER PRN 12/05/2022 12/05/2023 Active Albuterol Sulfate (Proventil) (5 MG/ML) 0.5% *conc* inhalation solution 2.5 mgIndications:IPF (idiopathic pulmonary fibrosis) (HCC) 2.5 mg NEBULIZER PRN 12/05/2022 12/05/2023 Active Benralizumab (Fasenra) prefilled syringe 30 mgIndications:Severe persistent asthma without complication 30 mg SC [id number] 12/20/2022 06/06/2023 Acti ve documented as of [...] Telephone Encounter - Frank Dhaliwal MD - 04/11/2023 4:52 PM EST Signed Prescriptions: Disp Refills Pirfenidone 801 MG Oral Tablet (Esbriet) 90 Tab*3 Sig: Take 801 mg by mouth in the morning and 801 mg at noon and 801 mg before bedtime. one pill three times a day.Authorizing Provider: FRANK DHALIWAL documented in this encounter Plan of Treatment Upcoming Encounters Date Type Department Care Team (Late st Contact Info) Description 04/17/2023 1:00 PM EST Nurse Only Pulmonary Medicine, [facility] [address] [place] [address] Gw, Nurse Pulmonary [address] [place] [address] 04/18/2023 1:00 PM EST Office Visit Pulmonary Medicine, [facility] [address] [place] [address] Frank Dhaliwal MD [address] [place] [address] 05/08/2023 3:00 PM EST Office Visit Palliative Medicine [facility] [address] Amarilys Ramirez MD [address] [facility] [place] [address] 05/14/2023 9:00 AM EST PulmDiagnostic Pulmonary Function Lab, [facility] 132 [facility] [place] [address] West, Pft 132 [facility] [place] [address] 06/20/2023 10:00 AM EDT Laboratory Laboratory [facility] 200 [facility] [place] [phone] [place], Lab [address] [place] [address] 06/25/2023 1:20 PM EDT Office Visit General Internal Medicine [facility] 200 [facility] [place] [address] Rizwana Antunez MD 200 [facility] [place] [address] 07/25/2023 1:30 PM EDT Office Visit Cardiology, [facility] 132 [facility] [place] [address] Ni Kay PA-C [address] [facility] [place] [address] 07/29/2023 10:00 AM EDT Imaging Radiology [facility]st [facility] 132 [facility] [place] [address] 12/02/2023 11:00 AM EDT Imaging Radiology, [address] [place] [address] 04/02/2024 1:00 PM EST Imaging Radiology [facility] 1st [facility] [place] [address] [place] [address] Health Maintenance Due Date Last Done Comments [...] of this encounter Visit Diagnoses Diagnosis Chronic idiopathic pulmonary fibrosis (HCC)- Primary Chronic respiratory failure with hypoxia, on home oxygen therapy (HCC) documented in this encounter Advance Directives Latest Code Status on File Code Status Date Activated Date Inactivated Comments Limited Code 11/26/2022 8:55 PM 12/04/2022 10:12 PM This order reflects the patients wishes and were consensually agreed upon. Question Answer Comments Discussion of Advance Directives occurred with: Patient Does the patient have a Living Will? No Does the patient have Health Care Power of Script Coordinator? No Bag Valve Device? No Intubation? No Cardiac Compressions? Yes Defibrillation? Yes Synchronized Cardioversion? Yes External Pacemaker? Yes Cardiac Drugs? Yes Care Teams Solvent Recoverer Relationship Specialty Start Date End Date Rizwana Antunez MD 200 [place] [address] PCP - General Internal Medicine 03/28/22 documented as of this encounter
--- OUTSIDE RECORDS SUMMARY | 2023-09-27 14:28 | External Medical Summary | Summary of Care ---
Author Name Unknown Organization [facility] Address [address] [place] [address] Phone [phone] Care Team Providers Care Resource Protection Specialist Name Role Phone Rizwana Antunez MD Primary Care Provider [phone] Reason for Visit * Reason Onset Date Comments Precert Denied 04/09/2023 Fasenra Encounter Details Date Type Department Care Team (Late st Contact Info) Description 04/09/2023 Telephone Pulmonary Medicine Cornelio Mays [address] [place] [address] [phone] Frank Finch MD [address] [place] [address] [id number] Precert Denied (Fasenra ) Allergies Active Allergy [...] A1c goal of less than 7.0% ([facility]),Chronic respiratory failure with hypoxia, on home oxygen therapy ([facility]),IPF (idiopathic pulmonary fibrosis) ([facility]),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 Take 1 [...] A1c goal of less than 7.0% ([facility]),Chronic respiratory failure with hypoxia, on home oxygen therapy ([facility]),IPF (idiopathic pulmonary fibrosis) ([facility]),detention (current) use of systemic steroids Take 2 [...] solution 2.5 mgIndications:IPF (idiopathic pulmonary fibrosis) ([facility]) 2.5 mg NEBULIZER PRN 12/05/2022 12/05/2023 Active Albuterol Sulfate (Proventil) (5 MG/ML) 0.5% *conc* inhalation solution 2.5 mgIndications:IPF (idiopathic pulmonary fibrosis) ([facility]) 2.5 mg NEBULIZER PRN 12/05/2022 12/05/2023 Active Benralizumab (Fasenra) prefilled syringe 30 mgIndications:Severe persistent asthma without complication 30 mg SC [id number] 12/20/2022 06/06/2023 Acti ve Albuterol Sulfate (Proventil) [...] encounter Miscellaneous Notes * Telephone Encounter - Lilibeth Chadwick OSA [...] Medicine Pre-Cert Request Medication/Disease State Information: Medication: Michael Diagnosis (including ICD-10): severe persistent asthma without complication Medication(s) Tried/Failed/Contraindicated: Prednisone burst twice within 12 months. See corresponding visit note(s) for additional supporting clinical information. Office Information: Prescriber: Dr. Frank Bazzi documented in this encounter Plan of Treatment Upcoming Encounters Date Type Department Care Team (Late st Contact Info) Description 04/17/2023 1:00 PM EST Nurse Only Pulmonary Medicine, [facility] 132 [facility] [place] [address] Gw, Nurse Pulmonary 132 [facility] [place] [address] 05/08/2023 3:00 PM EST Office Visit Palliative Medicine [facility] [address] [place] [address] Amarilys Ramirez MD [address] [place] [address] [place] [address] 05/14/2023 9:00 AM EST PulmDiagnostic Pulmonary Function Lab, [facility] [address] [place] [address] [place], Pft [facility] [place] [address] 05/14/2023 10:00 AM EST Office Visit Pulmonary Medicine, [facility] 132 [facility] [place] [address] Frank Finch MD [address] [facility] [address] 06/20/2023 10:00 AM EDT Laboratory Laboratory [facility] [address] [place] [phone] [facility] [address] [facility] [place] [address] 06/25/2023 1:20 PM EDT Office Visit General Internal Medicine [facility] [address] [place] [address] Rizwana Antunez MD [address] [facility] [place] [address] 07/25/2023 1:30 PM EDT Office Visit Cardiology, [facility] 132 [facility] [place] [address] Ni Kay PA-C 400 [facility] [place] [address] 07/29/2023 10:00 AM EDT Imaging Radiology [address] 132 [facility] [place] [address] 12/02/2023 11:00 AM EDT Imaging Radiology, [facility] [address] [facility] [place] [address] 04/02/2024 1:00 PM EST Imaging Radiology [address] 132 [facility] [place] [address] Health Maintenance Due Date Last Done Comments [...] the patient have Health Care Power of Non Garment Sewing Machine Operator? No Bag Valve Device? No Intubation? No Cardiac Compressions? Yes Defibrillation? Yes Synchronized Cardioversion? Yes External Pacemaker? Yes Cardiac Drugs? Yes Care Teams Resource Protection Specialist Relationship Specialty Start Date End Date Rizwana Antunez MD 200 [place] [address] PCP - General Internal Medicine 03/28/22 documented as of this encounter
--- OUTSIDE RECORDS SUMMARY | 2023-09-27 14:28 | External Medical Summary | Summary of Care ---
Author Name Unknown Organization [facility] Address [address] [place] [address] Phone [phone] Care Team Providers Care Physical Sciences Instructor Name Role Phone Rizwana Antunez MD Primary Care Provider [phone] Reason for Visit * Reason Onset Date Comments Order Request 06/28/2022 Oxygen Encounter Details Date Type Department Care Team (Late st Contact Info) Description 06/28/2022 Telephone General Internal Medicine [facility] 200 [facility] [place], [place] [phone] Rizwana Antunez MD 200 [facility], [place] [id number] Order Request (Oxygen) Allergies Active Allergy Reactions Criticality Noted Date Comments Lisinopril Cough 05/04/2022 documented as of this encounter (statuses as of 04/17/2023) Medications Medication Sig Dispensed Refills Start Date End Date Status Zoster Vac Recomb Adjuvanted 50 MCG/0.5ML Intramuscular Suspension Reconstituted (Shingrix)Indicat ions:Need for shingles vaccine Inject 0.5 mL into a large muscle now and repeat dose in 60 to 180 days 1 Each 1 2 01/25/20 23 Discontinued Omeprazole 20 MG Oral Tablet Delayed Release Take by mouth 1 Tablet in the morning. 90 Tablet 3 2 11/16/19 23 Discontinued(Ref ill) Metoprolol Succinate ER 25 MG Oral Tablet Extended Release 24 Hour (toPROL XL)Indications:HT N, goal below 130/80 Take 1 Tablet (25 mg) by mouth in the morning. 90 Tablet 1 2 07/28/19 23 Discontinued metFORMIN HCl ER 500 MG Oral Tablet Extended Release 24 Hour (Glucophage XR)Indications:Ty pe 2 diabetes mellitus with hemoglobin A1c goal of less than 7.0% (HCC) Take 4 Tablets (2,000 mg) by mouth daily with dinner. 360 Tablet 3 2 12/11/19 23 Discontinued(Ref ill) Atorvastatin Calcium 10 MG Oral Tablet (Lipitor)Indicati ons:Type 2 diabetes mellitus with hemoglobin A1c goal of less than 7.0% (HCC),Dyslipidemi a, goal LDL below 100 Take 1 Tablet by mouth in the morning. Start 02/07/2022. 90 Tablet 0 3 07/08/19 23 Discontinued Fluticasone-Salme terol 500-50 MCG/ACT Inhalation Aerosol Powder Breath Activated (Advair Diskus) Inhale 1 Puff by mouth in the morning and 1 Puff before bedtime. 60 Each 6 3 11/02/19 23 Discontinued(Ref ill) Pirfenidone 801 MG Oral Tablet (Esbriet)Indicati ons:Chronic idiopathic pulmonary fibrosis (HCC),Chronic respiratory failure with hypoxia, on home oxygen therapy (HCC) Take 801 mg by mouth in the morning and 801 mg at noon and 801 mg before bedtime. one pill three times a day. 90 Tablet 3 3 04/11/19 24 Discontinued(Ref ill) Losartan Potassium 50 MG Oral Tablet (Cozaar)Indicatio ns:HTN, goal below 130/80,Type 2 diabetes mellitus with hemoglobin A1c goal of less than 7.0% (HCC) Take 1 Tablet by mouth in the morning. (-st 25 mg 05/04/2022 and stop HCTZ,;inc dose 50 mg 05/25/2022). 90 Tablet 1 3 12/04/19 23 Discontinued oxygen IN GAS Administer 4 L/min(Oxygen) into nostril continuous. 4 LPM CONTINUOUS Flow, Continuous Use 1 Each 0 3 01/09/20 23 Hospital, Clinic, or Other Facility Administered Medication Ordered Dose Route Frequency Start Date End Date Status Albuterol Sulfate (Proventil) (5 MG/ML) 0.5% *conc* inhalation solution 2.5 mgIndications:Chronic idiopathic pulmonary fibrosis (HCC) 2.5 mg NEBULIZER PRN 04/09/2022 04/09/2023 Ended Albuterol Sulfate (Proventil) (2.5 MG/3ML) 0.083% inhalation solution 2.5 mgIndications:Chronic idiopathic pulmonary fibrosis (HCC) 2.5 mg NEBULIZER PRN 04/09/2022 04/09/2023 Ended documented as of this encounter (statuses as of 04/17/2023) Active Problems Problem Noted Date Diagnosed Date [...] as of this encounter (statuses as of 04/17/2023) Resolved Problems Problem Noted Date Diagnosed Date Resolved Date Acute pulmonary edema 11/30/20222022 Acute on chronic respiratory failure with hypoxia 11/27/2022 12/10/2022 Bacteremia due to Staphylococcus epidermidis 3 12/10/2022 Multifocal pneumonia 11/26/2022 023 Severe persistent asthma with exacerbation 07/31/2022 12/10/2022 Severe obesity with body mas s index (BMI) of 35.0 to 39.9 with serious comorbidity 11/20/2021 documented as of this encounter (statuses as of 04/17/2023) Immunizations Name Administration Dates Next Due COVID-19 [...] Date Smoking Tobacco: Never Smokeless Tobacco: Never Alcohol Use Standard Drinks/Week Comments Yes 0 [...] on file documented as of this encounter Miscellaneous Notes * Telephone Encounter - Laura Montoya, ANGE - 04/17/2023 4:37 PM EST Pt seen on 07/31/[address] Finch. * Telephone Encounter - Frank Finch MD - 07/05/2022 6:25 PM EDT We can have a 10 minute appointment or earlier if needed for oxygen order processing BUT, we need to have specific information what needs to be processed (for the oxygen order to go through). As far as I understand, patient is already on home oxygen. THX JFD * Telephone Encounter - Senait Muhammad LPN - 07/05/2022 4:16 PM EDT Is this appt too far out? * Telephone Encounter - Adolfo Chavez OSA - 07/05/2022 2:39 PM EDT Pt is currently scheduled for August 02. * Telephone Encounter - Laura Harding LPN - 07/05/2022 10:42 AM EDT TH says the pt needs appt to process oxygen order, as her last one was over 30 days. I left messageon her machine letting her know someone would be reaching out to her. * Telephone Encounter - Laura Arreola LPN - 07/05/2022 9:53 AM EDT Called [facility] - states order was signed by Dr. Frank Finch Order was sent to [facility] - follow up with them * Telephone Encounter - Rizwana Antunez MD - 06/29/2022 12:54 PM EDT What is this for? May need to route to pulm. * Telephone Encounter - Samara Hong LPN - 06/28/2022 5:26 PM EDT Patient has not been seen within last 30 days. Please advise. * Telephone Encounter - Melisa Gandhi OSA - 06/28/2022 4:30 PM EDT Edwige from [employer] calling, she needs office notes that are less than 30 days, descriptive walk test, she also needs more clarification as she needs to send it to a new supplier. Please advise. documented in this encounter Plan of Treatment Upcoming Encounters Date Type Department Care Team (Late st Contact Info) Description 04/18/2023 1:00 PM EST Office Visit Pulmonary Medicine, [facility] 132 [facility] [place] [address] Frank Finch MD [address] [place] [facility] [place] [address] 05/08/2023 3:00 PM EST Office Visit Palliative Medicine [facility] [address] [facility] [place] [address] Amarilys Ramirez MD [address] [place] [address] [place] [address] 05/14/2023 9:00 AM EST PulmDiagnostic Pulmonary Function Lab, [facility] 132 [facility] [place] [address] [address], [address] 132 [facility] [place] [address] 06/20/2023 10:00 AM EDT Laboratory Laboratory [facility] [address] [place] [phone] [address] [facility] [place] [address] 06/25/2023 1:20 PM EDT Office Visit General Internal Medicine [facility] [place] [address] [place] [address] Rizwana Antunez MD [address] [place] [address] 07/25/2023 1:30 PM EDT Office Visit Cardiology, [facility] 132 [facility] [place] [address] Ni Kay PA-C [address] [place] [address] 07/29/2023 10:00 AM EDT Imaging Radiology [address] 132 [facility] [place] [address] 12/02/2023 11:00 AM EDT Imaging Radiology, [facility] [address] [facility] [place] [address] 04/02/2024 1:00 PM EST Imaging Radiology [address] 132 [facility] [place] [address] Health Maintenance Due Date Last Done Comments [...] Mammogram 04/01/2024 04/01/2023, 03/28/2022 Cologuard 02/16/2025 02/16/2022, 08/2021, 02/13/2022 Colorectal Cancer Screening 02/16/2025 Lipid [...] Not on filedocumented as of this encounter Additional Health Concerns Infection Onset Date Last Indicated Resolved Time Respiratory Rule-Out 11/26/2022 11/26/2022 023 7:31 PM EDT COVID-19 Rule-Out 11/26/2022 11/26/2022 11/26/2022 7:31 PM EDT Gastrointestinal Rule-Out 12/19/2022 12/19/2022 11:15 PM EDT C. difficile Rule-Out 12/21/2022 12/21/20222022 5:45 PM EDT documented as of this encounter Advance Directives [...] the patient have Health Care Power of Child Nutrition Director? No Bag Valve Device? No Intubation? No Cardiac Compressions? Yes Defibrillation? Yes Synchronized Cardioversion? Yes External Pacemaker? Yes Cardiac Drugs? Yes Care Teams Physical Sciences Instructor Relationship Specialty Start Date End Date Rizwana Antunez MD [address] [place] [address], [place] [address] PCP - General Internal Medicine 03/28/22 documented as of this encounter
--- OUTSIDE RECORDS SUMMARY | 2023-09-27 14:28 | External Medical Summary | Summary of Care ---
Author Name Unknown Organization [facility] Address [address] [place] [address] Phone [phone] Care Team Providers Care Worm Grower Name Role Phone Rizwana Antunez MD Primary Care Provider [phone] Reason for Visit * Reason Onset Date Comments Precert Denied 04/09/2023 Fasenra Encounter Details Date Type Department Care Team (Late st Contact Info) Description 04/09/2023 Telephone Pulmonary Medicine [place] [address] [place] [phone] Frank Finch MD [address] [place] [phone] Precert Denied (Fasenra ) Allergies Active Allergy [...] (idiopathic pulmonary fibrosis) ([facility]),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 Pt's nurse visit has been set up for 04/17/23. When the PA was in process,the team missed sending the note fromthe Jan 2023 ov with . * Telephone Encounter - Nicolasa Lafleur OSA [...] 1:00 PM EST Nurse Only Pulmonary Medicine, [facility] 132 [facility] [place] [address] Gw, Nurse Pulmonary [address] [place] [address] [place] [address] 04/18/2023 1:00 PM EST Office Visit Pulmonary Medicine, [facility] 132 [facility] [place] [address] Frank Finch MD [address] [place] [address] 05/08/2023 3:00 PM EST Office Visit Palliative Medicine [facility] 200 [facility], [place] [address] Amarilys Ramirez MD [address] [place] [phone] 05/14/2023 9:00 AM EST PulmDiagnostic Pulmonary Function Lab, [facility] 132 [facility] [place] [address] [address], [address] 132 [facility] [place] [address] 06/20/2023 10:00 AM EDT Laboratory Laboratory [facility] 200 [facility] [place] [phone] [place], Lab [address] [place] [address] 06/25/2023 1:20 PM EDT Office Visit General Internal Medicine [facility] 200 [facility] [place] [address] Rizwnaa Antunez MD 200 [facility] [place] [address] 07/25/2023 1:30 PM EDT Office Visit Cardiology, [facility] 132 [facility] [place] [address] Ni Kay PA-C [address] [facility] [place] [address] 07/29/2023 10:00 AM EDT Imaging Radiology [address] 132 [facility] [place] [address] 12/02/2023 11:00 AM EDT Imaging Radiology, [facility] [address] [facility] [place] [address] 04/02/2024 1:00 PM EST Imaging Radiology [address] [facility] [address] Health Maintenance Due Date Last Done Comments [...] the patient have Health Care Power of Physician Practice Coordinator? No Bag Valve Device? No Intubation? No Cardiac Compressions? Yes Defibrillation? Yes Synchronized Cardioversion? Yes External Pacemaker? Yes Cardiac Drugs? Yes Care Teams Worm Grower Relationship Specialty Start Date End Date Rizwana Antunez MD 200 [facility] [place] [address] PCP - General Internal Medicine 03/28/22 documented as of this encounter
--- OUTSIDE RECORDS SUMMARY | 2023-09-27 14:28 | External Medical Summary | Summary of Care ---
Author Name Unknown Organization [facility] Address [address] [facility] [place] [address] Phone [phone] Care Team Providers Care Body Component Engineer Name Role Phone Rizwana Antunez MD Primary Care Provider [phone] Encounter Details Date Type Department Care Team (Late st Contact Info) Description 05/07/2023 Orders Only Pulmonary Medicine, [facility] [address] [facility] [place] [phone] Frank Finch MD [address] [facility] [address] Chronic idiopathic pulmonary fibrosis (HCC); Chronic respiratory failure with hypoxia, on home oxygen therapy ([facility]) Allergies Active Allergy Reactions Criticality Noted Date Comments Lisinopril Cough 05/04/2022 documented as of this encounter (statuses as of 05/07/2023) Medications Medication Sig Dispensed Refills Start Date End Date Status Atorvastatin Calcium 10 MG Oral Tablet (Lipitor)Indication s:Type 2 diabetes mellitus with hemoglobin A1c goal of less than 7.0% ([facility]),Dyslipidemia, goal LDL below 100 TAKE 1 TABLET [...] goal of less than 7.0% ([facility]),Elevated BUN,Dehydration Take 1 Tablet by mouth in [...] goal of less than 7.0% ([facility]),Chronic respiratory failure with hypoxia, on home oxygen therapy (HCC),IPF (idiopathic pulmonary fibrosis) (HCC),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 90 Tablet 0 4 Active predniSONE 10 MG Oral Tablet (Deltasone) Take 1 Tablet by mouth every other day for 180 doses. 90 Tablet 1 4 04/11/19 25 Active Azithromycin 500 MG Oral Tablet (Zithromax) Take 1 Tablet by mouth in the morning for 5 days. Take each dose with meal.. 5 Tablet 0 4 05/11/19 24 Active Pirfenidone 801 MG Oral Tablet (Esbriet)Indication s:Chronic idiopathic pulmonary fibrosis (HCC),Chronic respiratory failure with hypoxia, on home oxygen therapy ([facility]) Take 801 mg by mouth in the morning and 801 mg at noon and 801 mg before bedtime. one pill three times a day. 270 Tablet 5 4 08/05/19 24 Active Pirfenidone 801 MG Oral Tablet (Esbriet)Indication s:Chronic idiopathic pulmonary fibrosis (HCC),Chronic respiratory failure with hypoxia, on home oxygen therapy ([facility]) Take 801 mg by mouth in the morning and 801 mg at noon and 801 mg before bedtime. one pill three times a day. 90 Tablet 3 4 05/07/19 24 Discontinued Hospital, Clinic, or Other Facility Administered Medication Ordered Dose Route Frequency Start Date End Date Status Albuterol Sulfate (Proventil) (2.5 MG/3ML) 0.083% inhalation solution 2.5 mgIndications:IPF (idiopathic pulmonary fibrosis) ([facility]) 2.5 mg NEBULIZER PRN 12/05/2022 12/05/2023 Active Albuterol Sulfate (Proventil) (5 MG/ML) 0.5% *conc* inhalation solution 2.5 mgIndications:IPF (idiopathic pulmonary fibrosis) ([facility]) 2.5 mg NEBULIZER PRN 12/05/2022 12/05/2023 Active Benralizumab (Fasenra) prefilled syringe 30 mgIndications:Severe persistent asthma without complication 30 mg SC [id number] 12/20/2022 06/06/2023 Acti ve documented as of this encounter (statuses as of 05/07/2023) Active Problems Problem Noted Date Diagnosed Date [...] as of this encounter (statuses as of 05/07/2023) Resolved Problems Problem Noted Date Diagnosed Date Resolved Date Acute pulmonary edema 11/30/20222022 Acute on chronic respiratory failure with hypoxia 11/27/2022 12/10/2022 Bacteremia due to Staphylococcus epidermidis 12/10/2022 Multifocal pneumonia 11/26/2022 023 Severe persistent asthma with exacerbation 07/31/2022 12/10/2022 Severe obesity with body mas s index (BMI) of 35.0 to 39.9 with serious comorbidity 11/20/2021 documented as of this encounter (statuses as of 05/07/2023) Immunizations Name Administration Dates Next Due COVID-19 [...] No 11/26/2022 documented as of this encounter Plan of Treatment Upcoming Encounters Date Type Department Care Team (Late st Contact Info) Description 05/08/2023 3:00 PM EST Office Visit Palliative Medicine [facility] [place] [facility] [phone] Amarilys Ramirez MD [address] [place] [address] [place] [address] 05/14/2023 9:00 AM EST PulmDiagnostic Pulmonary Function Lab, [facility] 132 [facility] [place] [address] [address], [address] 132 [facility] [place] [address] 06/13/2023 1:00 PM EDT Nurse Only Pulmonary Medicine, [facility] 132 [facility] [place] [address] , Nurse Pulmonary 132 [facility] [place] [address] 06/20/2023 10:00 AM EDT Laboratory Laboratory [facility] [place] [address] [place] [phone] [facility] [place] [address] [address] 06/25/2023 1:20 PM EDT Office Visit General Internal Medicine [facility] [place] [address] [place] [address] Rizwana Antunez MD [address] [place] [address] 07/25/2023 1:30 PM EDT Office Visit Cardiology, [facility] 132 [facility] [place] [address] Ni Kay PA-C [address] [place] [address] 07/29/2023 10:00 AM EDT Imaging Radiology [address] 132 [facility] [place] [address] 12/02/2023 11:00 AM EDT Imaging Radiology, [facility] [address] [facility] [place] [address] 04/02/2024 1:00 PM EST Imaging Radiology [address] 132 [facility] [place] [address] Health Maintenance Due Date Last Done Comments [...] Visit Diagnoses Diagnosis Chronic idiopathic pulmonary fibrosis (HCC) Chronic respiratory failure with hypoxia, on [...] the patient have Health Care Power of Merchandise Flow Associate? No Bag Valve Device? No Intubation? No Cardiac Compressions? Yes Defibrillation? Yes Synchronized Cardioversion? Yes External Pacemaker? Yes Cardiac Drugs? Yes Care Teams Body Component Engineer Relationship Specialty Start Date End Date Rizwana Antunez MD [address] [place] [address] [address] [place], [place] [address] PCP - General Internal Medicine 03/28/22 documented as of this encounter
--- OUTSIDE RECORDS SUMMARY | 2023-09-27 14:28 | External Medical Summary | Summary of Care ---
Author Name Unknown Organization [facility] Address [address] [facility] [place] [address] Phone [phone] Care Team Providers Care Certified Meeting Professional Name Role Phone Rizwana Antunez MD Primary Care Provider [phone] Encounter Details Date Type Department Care Team (Late st Contact Info) Description 04/19/2023 Telephone [facility] [address] [place] [facility] [place] [phone] Frank Finch MD [address] [facility] [place] [phone] Allergies Active Allergy Reactions Criticality Noted Date Comments Lisinopril Cough 05/04/2022 documented as of this encounter (statuses as of 04/19/2023) Medications Medication Sig Dispensed Refills Start Date End Date Status Atorvastatin Calcium 10 MG Oral Tablet (Lipitor)Indications :Type 2 diabetes mellitus with hemoglobin A1c goal of less than 7.0% ([facility]),Dyslipidemia, goal LDL below 100 TAKE [...] goal of less than 7.0% ([facility]),Elevated BUN,Dehydration Take 1 Tablet by [...] home oxygen therapy (HCC),IPF (idiopathic pulmonary fibrosis) (HCC),detention (current) use of systemic steroids Take 2 [...] hypoxia, on home oxygen therapy ([facility]) Take 801 mg by mouth in the morning and 801 mg at noon and 801 mg before bedtime. one pill three times a day. 90 Tablet 3 04/11/2023 Active Empagliflozin 10 MG Oral Tablet (Jardiance)Indicatio ns:Type 2 diabetes mellitus with hemoglobin A1c goal of less than 7.0% ([facility]),Chronic respiratory failure with hypoxia, on home oxygen therapy ([facility]),IPF (idiopathic pulmonary fibrosis) ([facility]),detention (current) use of systemic steroids Take 1 [...] 2.5 mgIndications:IPF (idiopathic pulmonary fibrosis) ([facility]) 2.5 mg NEBULIZER PRN 12/05/2022 12/05/2023 Active Albuterol Sulfate (Proventil) (5 MG/ML) 0.5% *conc* inhalation solution 2.5 mgIndications:IPF (idiopathic pulmonary fibrosis) ([facility]) 2.5 mg NEBULIZER PRN 12/05/2022 12/05/2023 Active Benralizumab (Fasenra) prefilled syringe 30 mgIndications:Severe persistent asthma without complication 30 mg SC [id number] 12/20/2022 06/06/2023 Acti ve documented as of this encounter (statuses as of 04/19/2023) Active Problems Problem Noted Date Diagnosed Date [...] as of this encounter (statuses as of 04/19/2023) Resolved Problems Problem Noted Date Diagnosed Date [...] as of this encounter (statuses as of 04/19/2023) Immunizations Name Administration Dates Next Due COVID-19 mRNA, LNP-s, No Pre serve, 2-Dose Series (Moderna) 04/26/2020,03/29/2020 COVID-19, LNP-s, No Preserve , Mir-sucrose, Ages 12+ ([employer]) 01/08/2022 COVID-19, mRNA, LNP-s, PF, B ooster, [...] - 04/19/2023 7:58 AM EST Orders in TH 04/19 02 adapt documented in this encounter Plan of Treatment Upcoming Encounters Date Type Department Care Team (Late st Contact Info) Description 05/08/2023 3:00 PM EST Office Visit Palliative Medicine [facility] [place] 200 [facility], [place] [address] Amarilys Ramirez MD [address] [place], [place] [address] [address] 05/14/2023 9:00 AM EST PulmDiagnostic Pulmonary Function Lab, [facility] 132 [facility] [place] [address] [place], Pft 132 [facility] [place] [address] 06/13/2023 1:00 PM EDT Nurse Only Pulmonary Medicine, [facility] 132 [facility] [place] [address] , Nurse Pulmonary [facility] [place] [address] 06/20/2023 10:00 AM EDT Laboratory Laboratory [facility] 200 [facility] [place] [phone] [place], Lab [address] [place] [address] 06/25/2023 1:20 PM EDT Office Visit General Internal Medicine [facility] [address] [place] [address] Rizwana Antunez MD 200 [facility] [place] [address] 07/25/2023 1:30 PM EDT Office Visit Cardiology, [facility] 132 [facility] [place] [address] Ni Kay PA-C [address] [place], [place] [address] [address] 07/29/2023 10:00 AM EDT Imaging Radiology [address] 132 [facility] [place] [address] 12/02/2023 11:00 AM EDT Imaging Radiology, [facility] [address] [facility] [address] 04/02/2024 1:00 PM EST Imaging Radiology [address] 132 [facility] [place] [address] Health Maintenance Due Date Last Done Comments [...] the patient have Health Care Power of Surfacing Technician? No Bag Valve Device? No Intubation? No Cardiac Compressions? Yes Defibrillation? Yes Synchronized Cardioversion? Yes External Pacemaker? Yes Cardiac Drugs? Yes Care Teams Certified Meeting Professional Relationship Specialty Start Date End Date Rizwana Antunez MD [address] [place] [address] [place] [address] PCP - General Internal Medicine 03/28/22 documented as of this encounter
--- OUTSIDE RECORDS SUMMARY | 2023-09-27 14:28 | External Medical Summary | Summary of Care ---
Author Name Unknown Organization [facility] Address [address] [facility] [place] [address] Phone [phone] Care Team Providers Care Verifying Machine Operator Name Role Phone Rizwana Antunez MD Primary Care Provider [phone] Reason for Visit * Precert (Within 10 days (routine)) - Authorized Specialty Diagnoses / Procedures Referred By Contac t Referred To Contact Pulmonary Diseases / Pulmonary Diagnoses Severe persistent asthma, uncomplicated Procedures BENRALIZUMAB, 1 MG, INJ Frank Finch MD [address] [place] [address] Frank Finch MD [address] [place] [address] Referral ID Status Reason Start Date Expiration Date V isits Requested Visits Authorized [id number] Authorized Precert 11/11/2022 05/12/2023 999 13 Encounter Details Date Type Department Care Team (Late st Contact Info) Description 04/17/2023 1:00 PM EST Nurse Only Pulmonary Medicine, [facility] [address] [place] [address] Gw, Nurse Pulmonary 132 [facility] [place] [address] Arrived Allergies Active Allergy Reactions Criticality Noted Date Comments Lisinopril Cough 05/04/2022 documented as of this encounter (statuses as of 04/17/2023) Medications Medication Sig Dispensed Refills Start Date End Date Status Atorvastatin Calcium 10 MG Oral Tablet (Lipitor)Indications: Type 2 diabetes mellitus with hemoglobin A1c goal of less than 7.0% (HCC),Dyslipidemia, goal LDL below 100 TAKE 1 TABLET BY MOUTH IN THE MORNING. 90 Tablet 3 07/07/2022 Active Ipratropium-Albuterol 0.5-2.5 (3) MG/3ML Inhalation Solution Inhale 3 mL via nebulizer every 6 hours as needed. 0 11/05/2022 Active Probiotic Acidophilus Oral CapsuleIndications:Ho spital discharge follow-up,Coagulase negative Staphylococcus bacteremia 2 daily 0 11/08/2022 Active Loratadine 10 MG Oral Tablet (Claritin)Indications :Environmental and seasonal allergies Take 1 Tablet by [...] 0 Active Repaglinide 0.5 MG Oral Tablet (Prandin)Indications: Type 2 diabetes mellitus with hemoglobin A1c [...] Active Breztri Aerosphere 160-9-4.8 MCG/ACT Inhalation Aerosol (Budeson-Glycopyrrol- Formoterol) Inhale 2 Puffs by mouth in the [...] MEDICAL CENTER),IPF (idiopathic pulmonary fibrosis) ([facility]),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 (Restart 1 tab 01/18/2023) inc 2 tabs 01/30/2023, inc 3 tabs 03/26/2023 60 Tablet 0 03/26/2023 Active Losartan Potassium 50 MG Oral Tablet (Cozaar) Take 0.5 Tablets by mouth every evening. Restart 03/26/2023-has at home 0 03/26/2023 Active Pirfenidone 801 MG Oral Tablet (Esbriet)Indications: Chronic idiopathic pulmonary fibrosis (HCC),Chronic respiratory failure with hypoxia, on home oxygen therapy ([facility]) Take 801 mg by mouth in the morning and 801 mg at noon and 801 mg before bedtime. one pill three times a day. 90 Tablet 3 04/11/2023 Active Empagliflozin 10 MG Oral Tablet (Jardiance)Indication s:Type 2 diabetes mellitus with hemoglobin A1c goal of less than 7.0% ([facility]),Chronic respiratory failure with hypoxia, on home oxygen therapy ([facility]),IPF (idiopathic pulmonary fibrosis) ([facility]),retirement (current) use of systemic steroids Take 1 Tablet by mouth in the morning. 90 Tablet 0 04/16/2023 Active Hospital, Clinic, or Other Facility Administered [...] persistent asthma without complication 30 mg SC [id number] 12/20/2022 06/06/2023 Acti ve documented as of [...] Taken Comments Blood Pressure - - Pulse 80 04/17/2023 1:06 PM EST Temperature 36.7 C (98.1 F) 04/17/2023 1:06 PM ES T Respiratory Rate 18 04/17/2023 1:06 PM EST Oxygen Saturation 97% 04/17/2023 1:06 PM EST Inhaled Oxygen Concentration - - Weight - [...] 1:00 PM EST Office Visit Pulmonary Medicine, [facility] 132 [facility] [place] [address] Frank Finch MD [address] [place] [facility] [place] [address] 05/08/2023 3:00 PM EST Office Visit Palliative Medicine [facility] 200 [facility] [address] [place] [address] Amarilys Ramirez MD [address] [place] [address] 05/14/2023 9:00 AM EST PulmDiagnostic Pulmonary Function Lab, [facility] [address] [place] [address] [place], [address] [place] [address] 06/20/2023 10:00 AM EDT Laboratory Laboratory [facility] 200 [facility] [place] [phone] Denzel [place] [address] [address] [place] [address] 06/25/2023 1:20 PM EDT Office Visit General Internal Medicine [facility] 200 [facility] [place] [address] Rizwana Antunez MD 200 [facility] [place] [address] 07/25/2023 1:30 PM EDT Office Visit Cardiology, [facility] 132 [facility] [place] [address] Ni Kay PA-C [address] [place] [address] [place] [address] 07/29/2023 10:00 AM EDT Imaging Radiology [address] [place] [address] 12/02/2023 11:00 AM EDT Imaging Radiology, [facility] [address] [facility] [place] [address] 04/02/2024 1:00 PM EST Imaging Radiology [address] 132 [place] [address] Health Maintenance Due Date Last Done Comments [...] prefilled syringe 30 mg 30 mg, Subcutaneous, [id number], First dose on Camila 12/20/22 at 0800, Last dose on Camila 05/09/23 at 0800, For 6 doses Given 04/17/2023 12:57 PM EST 30 mg Arm Left Upper Given 02/15/2023 11:41 AM EST 30 mg A rm Left Upper Given 01/17/2023 11:26 AM EST 30 mg A rm Left Upper documented in this encounter Advance Directives Latest Code Status on File Code Status Date Activated Date Inactivated Comments Limited Code 11/26/2022 8:55 PM 12/04/2022 10:12 PM This order reflects the patients wishes and were consensually agreed upon. Question Answer Comments Discussion of Advance Directives occurred with: Patient Does the patient have a Living Will? No Does the patient have Health Care Power of Practice Billing Associate? No Bag Valve Device? No Intubation? No Cardiac Compressions? Yes Defibrillation? Yes Synchronized Cardioversion? Yes External Pacemaker? Yes Cardiac Drugs? Yes Care Teams Verifying Machine Operator Relationship Specialty Start Date End Date Rizwana Antunez MD 200 [facility] [place] [address] PCP - General Internal Medicine 03/28/22 documented as of this encounter
--- OUTSIDE RECORDS SUMMARY | 2023-09-27 14:29 | External Medical Summary | Summary of Care ---
Author Name Unknown Organization [facility] Address [address] [facility] [place] [address] Phone [phone] Care Team Providers Care Candle Wicker Name Role Phone Rizwana Antunez MD Primary Care Provider [phone] Reason for Visit * Reason Onset Date Comments Precert In Process 04/09/2023 Michael [employer] c arol Encounter Details Date Type Department Care Team (Late st Contact Info) Description 04/09/2023 Telephone Pulmonary Medicine Cornelio Mays [address] [place] [phone] Frank Finch MD [address] [place] [phone] Precert In Process ([employer]rist[employer] Medicaljose cruz rodriguez lilibeth /) Allergies Active Allergy Reactions Criticality Noted Date Comments Lisinopril Cough 05/04/2022 documented as of this encounter (statuses as of 04/10/2023) Medications Medication Sig Dispensed Refills Start Date [...] HOSPITAL),IPF (idiopathic pulmonary fibrosis) ([facility]),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) use of systemic [...] HOSPITAL),IPF (idiopathic pulmonary fibrosis) ([facility]),care home (current) use of systemic steroids Take [...] persistent asthma without complication 30 mg SC [id number] 12/20/2022 06/06/2023 Acti ve Albuterol Sulfate (Proventil) (5 MG/ML) 0.5% *conc* inhalation solution 2.5 mgIndications:Chronic idiopathic pulmonary fibrosis (HCC) 2.5 mg NEBULIZER PRN 04/09/2022 04/09/2023 Ended Albuterol Sulfate (Proventil) (2.5 MG/3ML) 0.083% inhalation solution 2.5 mgIndications:Chronic idiopathic pulmonary fibrosis (HCC) 2.5 mg NEBULIZER PRN 04/09/2022 04/09/2023 Ended documented as of this encounter (statuses as of 04/10/2023) Active Problems Problem Noted Date Diagnosed Date [...] as of this encounter (statuses as of 04/10/2023) Resolved Problems Problem Noted Date Diagnosed Date Resolved Date Acute pulmonary edema 11/30/20222022 Acute on chronic respiratory failure with hypoxia 11/27/2022 12/10/2022 Bacteremia due to Staphylococcus epidermidis 12/10/2022 Multifocal pneumonia 11/26/2022 023 Severe persistent asthma with exacerbation 07/31/2022 12/10/2022 Severe obesity with body mas s index (BMI) of 35.0 to 39.9 with serious comorbidity 11/20/2021 documented as of this encounter (statuses as of 04/10/2023) Immunizations Name Administration Dates Next Due COVID-19 [...] or 4 weeks? * Telephone Encounter - Mle Goodwin LPN - 04/09/2023 8:55 AM EST [...] 1:00 PM EST Nurse Only Pulmonary Medicine, [facility] 132 [facility] [place] [address] Gw, Nurse Pulmonary 132 [facility] [place] [address] 05/08/2023 3:00 PM EST Office Visit Palliative Medicine [facility] [address] [facility] [address] Amarilys Ramirez MD [address] [place] [address] 05/14/2023 9:00 AM EST PulmDiagnostic Pulmonary Function Lab, [facility] 132 [facility] [place] [address] West, Pft 132 [facility] [place] [address] 05/14/2023 10:00 AM EST Office Visit Pulmonary Medicine, [facility] 132 [facility] [place] [address] Frank Finch MD [address] [facility] [place] [address] 06/20/2023 10:00 AM EDT Laboratory Laboratory [facility] [address] [place] [phone] [place], [facility] [address] [facility] [place] [address] 06/25/2023 1:20 PM EDT Office Visit General Internal Medicine [facility] [address] [place] [address] Rizwana Antunez MD [address] [place] [address] 07/25/2023 1:30 PM EDT Office Visit Cardiology, [facility] 132 [facility] [place] [address] iN Kay PA-C [address] [place] [address] [place] [address] 07/29/2023 10:00 AM EDT Imaging Radiology [facility]st [facility] [place] 132 [facility] [place] [address] 12/02/2023 11:00 AM EDT Imaging Radiology, [facility] 2520 [facility] [place] [address] Health Maintenance Due Date Last Done Comments [...] the patient have Health Care Power of Day [employer] Bus Driver? No Bag Valve Device? No Intubation? No Cardiac Compressions? Yes Defibrillation? Yes Synchronized Cardioversion? Yes External Pacemaker? Yes Cardiac Drugs? Yes Care Teams Candle Wicker Relationship Specialty Start Date End Date Rizwana Antunez MD [address] [place] [address] [place] [address] PCP - General Internal Medicine 03/28/22 documented as of this encounter
--- OUTSIDE RECORDS SUMMARY | 2023-09-27 14:29 | External Medical Summary | Summary of Care ---
Author Name Unknown Organization [facility] Address [address] [place] [address] Phone [phone] Care Team Providers Care Rocket Engine Component Mechanic Name Role Phone Rizwana Antunez MD Primary Care Provider [phone] Reason for Visit * Reason Onset Date Comments Medication Pre-auth 04/09/2023 Michael diehl Encounter Details Date Type Department Care Team (Late st Contact Info) Description 04/09/2023 Telephone Pulmonary Medicine Cornelio Mays [address] [place] [phone] Frank Finch MD [address] [place] [address] [phone] Medication Pre-auth (Michael diehl /) Allergies Active Allergy Reactions Criticality Noted Date Comments Lisinopril Cough 05/04/2022 documented as of this encounter (statuses as of 04/09/2023) Medications Medication Sig Dispensed Refills Start Date [...] goal of less than 7.0% ([facility]),Chronic respiratory failure with hypoxia, on home oxygen therapy ([facility]),IPF (idiopathic pulmonary fibrosis) ([facility]),long-term (current) use of systemic steroids Take 1 [...] goal of less than 7.0% ([facility]),Chronic respiratory failure with hypoxia, on home oxygen therapy ([facility]),IPF (idiopathic pulmonary fibrosis) ([facility]),long-term (current) use of systemic steroids Take [...] (HCC) 2.5 mg NEBULIZER PRN 04/09/2022 04/09/2023 Active Albuterol Sulfate (Proventil) (2.5 MG/3ML) 0.083% inhalation solution 2.5 mgIndications:Chronic idiopathic pulmonary fibrosis (HCC) 2.5 mg NEBULIZER PRN 04/09/2022 04/09/2023 Active Albuterol Sulfate (Proventil) (2.5 MG/3ML) 0.083% inhalation solution 2.5 mgIndications:IPF (idiopathic pulmonary fibrosis) (HCC) 2.5 mg NEBULIZER PRN 12/05/2022 12/05/2023 Active Albuterol Sulfate (Proventil) (5 MG/ML) 0.5% *conc* inhalation solution 2.5 mgIndications:IPF (idiopathic pulmonary fibrosis) (HCC) 2.5 mg NEBULIZER PRN 12/05/2022 12/05/2023 Active Benralizumab (Fasenra) prefilled syringe 30 mgIndications:Severe persistent asthma without complication 30 mg SC [id number] 12/20/2022 06/06/2023 Acti ve documented as of this encounter (statuses as of 04/09/2023) Active Problems Problem Noted Date Diagnosed Date [...] as of this encounter (statuses as of 04/09/2023) Resolved Problems Problem Noted Date Diagnosed Date Resolved Date Acute pulmonary edema 11/30/20222022 Acute on chronic respiratory failure with hypoxia 11/27/2022 12/10/2022 Bacteremia due to Staphylococcus epidermidis 12/10/2022 Multifocal pneumonia 11/26/2022 023 Severe persistent asthma with exacerbation 07/31/2022 12/10/2022 Severe obesity with body mas s index (BMI) of 35.0 to 39.9 with serious comorbidity 11/20/2021 documented as of this encounter (statuses as of 04/09/2023) Immunizations Name Administration Dates Next Due COVID-19 [...] 1:00 PM EST Nurse Only Pulmonary Medicine, [facility] 132 [facility] [place] [address] Gw, Nurse Pulmonary 132 [facility] [place] [address] 05/08/2023 3:00 PM EST Office Visit Palliative Medicine [place] [address] [place] [address] Amarilys Ramirez MD [facility] [phone] 05/14/2023 9:00 AM EST PulmDiagnostic Pulmonary Function Lab, [facility] 132 [place] [address] West, Pft 132 [place] [address] 05/14/2023 10:00 AM EST Office Visit Pulmonary Medicine, [facility] 132 [place] [address] Frank Finch MD [facility] [place] [facility] [place] [address] 06/20/2023 10:00 AM EDT Laboratory Laboratory [facility] 200 [place] [phone] [place], [facility] 200 [facility] [place], [place] [address] 06/25/2023 1:20 PM EDT Office Visit General Internal Medicine [facility] 200 [facility] [place], [place] [address] Rizwana Antunez MD 200 [facility] [place], [place] [address] 07/25/2023 1:30 PM EDT Office Visit Cardiology, [facility] 132 [place] [address] Ni Kay PA-C [address] [facility] [place] [address] 07/29/2023 10:00 AM EDT Imaging Radiology [facility] 1st [facility] 132 [facility] [place] [address] 12/02/2023 11:00 AM EDT Imaging Radiology, [facility] 2520 [facility] [place] [address] Health Maintenance Due Date Last Done Comments [...] the patient have Health Care Power of Reservations Specialist? No Bag Valve Device? No Intubation? No Cardiac Compressions? Yes Defibrillation? Yes Synchronized Cardioversion? Yes External Pacemaker? Yes Cardiac Drugs? Yes Care Teams Rocket Engine Component Mechanic Relationship Specialty Start Date End Date Rizwana Antunez MD 200 [place] [address] PCP - General Internal Medicine 03/28/22 documented as of this encounter
--- OUTSIDE RECORDS SUMMARY | 2023-09-27 14:29 | External Medical Summary | Summary of Care ---
Author Name Unknown Organization [facility] Address [address] [place] [address] Phone [phone] Care Team Providers Care Siebel Administrator Name Role Phone Rizwana Antunez MD Primary Care Provider [phone] Reason for Visit * Reason Onset Date Comments Precert In Process 04/09/2023 Michael [employer] c arol Encounter Details Date Type Department Care Team (Late st Contact Info) Description 04/09/2023 Telephone Pulmonary Medicine Cornelio Mays [address] [phone] Frank Finch MD [address] [phone] Precert In Process (Trefisjose cruz rodriguez fazal /) Allergies Active Allergy Reactions Criticality Noted [...] ([facility]),IPF (idiopathic pulmonary fibrosis) ([facility]),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 Take 1 [...] ([facility]),IPF (idiopathic pulmonary fibrosis) ([facility]),FDC (current) use of systemic steroids Take [...] solution 2.5 mgIndications:IPF (idiopathic pulmonary fibrosis) ([facility]) 2.5 mg NEBULIZER PRN 12/05/2022 12/05/2023 Active Albuterol Sulfate (Proventil) (5 MG/ML) 0.5% *conc* inhalation solution 2.5 mgIndications:IPF (idiopathic pulmonary fibrosis) ([facility]) 2.5 mg NEBULIZER PRN 12/05/2022 12/05/2023 Active Benralizumab (Fasenra) prefilled syringe 30 mgIndications:Severe persistent asthma without complication 30 mg SC [id number] 12/20/2022 06/06/2023 Acti ve Albuterol Sulfate (Proventil) [...] with this information. * Telephone Encounter - Fazal Chadwick OSA - 04/10/2023 8:26 AM EST Pt insurance is asking for documentation that: -Has asthma control improved on Fasenra treatment as demonstrated by a reduction in the frequency and/or severity of symptoms and exacerbations? *OV notes from 01/14 were sent with request but they do not reflect any improvement in the notes. * Telephone Encounter - Fazal Chadwick OSA - 04/09/2023 11:45 AM EST [...] 1:00 PM EST Nurse Only Pulmonary Medicine, [facility] [address] [employer] [place] [address] , Nurse Pulmonary [address] [place], [place] [address]RAM[place]il [address] 05/08/2023 3:00 PM EST Office Visit Palliative Medicine [facility] 200 [place] [address] Amarilys Ramirez MD [address] [place] [address] [place] [id number] 05/14/2023 9:00 AM EST PulmDiagnostic Pulmonary Function Lab, [facility] [address] [employer] [place] [address] West, Pft 132 [facility] [address] 05/14/2023 10:00 AM EST Office Visit Pulmonary Medicine, [facility] [address] [employer] [place] [address] Frank Finch MD [address] [place] [address] [place] [address] 06/20/2023 10:00 AM EDT Laboratory Laboratory [facility] 200 [facility] [place] [address] Denzel Gunn [facility] 200 [facility] [place] [address] 06/25/2023 1:20 PM EDT Office Visit General Internal Medicine [facility] [address] [place] [address] Rizwana Antunez MD [address] [place] [address] 07/25/2023 1:30 PM EDT Office Visit Cardiology, [facility] 132 [facility] [place] [address] Ni Kay PA-C 400 [facility] [place] [address] 07/29/2023 10:00 AM EDT Imaging Radiology [facility] 1st [facility] 132 [facility] [place] [address] 12/02/2023 11:00 AM EDT Imaging Radiology, [facility] 2520 [facility] [place] [address] Health Maintenance Due Date Last Done Comments [...] the patient have Health Care Power of Mold Checker? No Bag Valve Device? No Intubation? No Cardiac Compressions? Yes Defibrillation? Yes Synchronized Cardioversion? Yes External Pacemaker? Yes Cardiac Drugs? Yes Care Teams Siebel Administrator Relationship Specialty Start Date End Date Rizwana Antunez MD [address] [place] [address], [place] [address] PCP - General Internal Medicine 03/28/22 documented as of this encounter
--- OUTSIDE RECORDS SUMMARY | 2023-09-27 14:29 | External Medical Summary | Summary of Care ---
Author Name Unknown Organization [facility] Address [address] [place] [address] Phone [phone] Care Team Providers Care Long Term Care Pharmacist Name Role Phone Rizwana Antunez MD Primary Care Provider [phone] Reason for Visit * Reason Onset Date Comments Medication Pre-auth 04/09/2023 Fasenra Encounter Details Date Type Department Care Team (Late st Contact Info) Description 04/09/2023 Telephone Pulmonary Medicine Cornelio Mays [address] [phone] Frank Finch MD [address] [phone] Medication Pre-auth (Fasenra /) Allergies Active Allergy Reactions Criticality Noted [...] goal of less than 7.0% ([facility]),Chronic respiratory failure with hypoxia, on home oxygen therapy ([facility]),IPF (idiopathic pulmonary fibrosis) ([facility]),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 * Telephone Encounter - Mel Goodwin LPN [...] 1:00 PM EST Nurse Only Pulmonary Medicine, [facility] 132 [facility] [place] [address] Gw, Nurse Pulmonary 132 [facility] [place] [address] 05/08/2023 3:00 PM EST Office Visit Palliative Medicine [facility] 200 [facility] [address] Amarilys Ramirez MD [address] [place] [address] 05/14/2023 9:00 AM EST PulmDiagnostic Pulmonary Function Lab, [facility] 132 [facility] [place] [address] West, Pft 132 [facility] [place] [address] 05/14/2023 10:00 AM EST Office Visit Pulmonary Medicine, [facility] 132 [facility] [place] [address] Frank Finch MD [address] [facility] [address] 06/20/2023 10:00 AM EDT Laboratory Laboratory [facility] [address] [place], [place] [phone] [place] [facility] [address] [place], [place] [address] 06/25/2023 1:20 PM EDT Office Visit General Internal Medicine [facility] [address] [place], [place] [address] Rizwana Antunez MD [address] [place], [place] [address] 07/25/2023 1:30 PM EDT Office Visit Cardiology, [facility] 132 [facility] [place] [address] Ni Kay PA-C 400 [facility] [address] 07/29/2023 10:00 AM EDT Imaging Radiology [facility] 1st [facility] 132 [facility] [place] [address] 12/02/2023 11:00 AM EDT Imaging Radiology, [facility] [address] [facility] [place] [address] Health Maintenance Due Date Last Done Comments [...] the patient have Health Care Power of Skein Inspector? No Bag Valve Device? No Intubation? No Cardiac Compressions? Yes Defibrillation? Yes Synchronized Cardioversion? Yes External Pacemaker? Yes Cardiac Drugs? Yes Care Teams Long Term Care Pharmacist Relationship Specialty Start Date End Date Rizwana Antunez MD [address] [place] [address] PCP - General Internal Medicine 03/28/22 documented as of this encounter
--- OUTSIDE RECORDS SUMMARY | 2023-09-27 14:29 | External Medical Summary | Summary of Care ---
Author Name Unknown Organization [facility] Address [address] [place] [place] [address] Phone [phone] Care Team Providers Care Extern Name Role Phone Rizwana Antunez MD Primary Care Provider [phone] Reason for Visit * Reason Onset Date Comments Precert In Process 04/09/2023 Michael [employer] c arol Encounter Details Date Type Department Care Team (Late st Contact Info) Description 04/09/2023 Telephone Pulmonary Medicine Cornelio Mays [address] [phone] Frank Finch MD [address] [phone] Precert In Process (In2Gamesjose cruz rodriguez fazal /) Allergies Active Allergy [...] (idiopathic pulmonary fibrosis) (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),halfway (current) use of systemic steroids Take [...] persistent asthma without complication 30 mg SC [id number] 12/20/2022 06/06/2023 Acti ve Albuterol Sulfate (Proventil) [...] encounter Miscellaneous Notes * Telephone Encounter - Fazal Chadwick OSA [...] 1:00 PM EST Nurse Only Pulmonary Medicine, [facility] 132 [facility] [place] [address] Gw, Nurse Pulmonary 132 [facility] [place] [address] 05/08/2023 3:00 PM EST Office Visit Palliative Medicine [facility] [address] [place] [address] Amarilys Ramirez MD 400 [facility] [id number] 05/14/2023 9:00 AM EST PulmDiagnostic Pulmonary Function Lab, [facility] 132 [place] [address] West, Pft 132 [facility] [place] [address] 05/14/2023 10:00 AM EST Office Visit Pulmonary Medicine, [facility] 132 [place] [address] Frank Finch MD [facility] [place] [address] 06/20/2023 10:00 AM EDT Laboratory Laboratory [facility] 200 [place] [address] [place], Lab [facility] 200 [facility] [place], [place] [address] 06/25/2023 1:20 PM EDT Office Visit General Internal Medicine [facility] 200 [facility] [place], [place] [address] Rizwana Antunez MD 200 [facility] [place], [place] [address] 07/25/2023 1:30 PM EDT Office Visit Cardiology, [facility] 132 [facility] [address] Ni Kay PA-C [address] [place] [address] 07/29/2023 10:00 AM EDT Imaging Radiology [facility] [address] [facility] 132 [address] [place] [address] 12/02/2023 11:00 AM EDT Imaging Radiology, [facility] 2520 [facility] [place] [address] Health Maintenance Due Date Last Done Comments [...] the patient have Health Care Power of Section Gang? No Bag Valve Device? No Intubation? No Cardiac Compressions? Yes Defibrillation? Yes Synchronized Cardioversion? Yes External Pacemaker? Yes Cardiac Drugs? Yes Care Teams Extern Relationship Specialty Start Date End Date Rizwana Antunez MD 200 [place] [address] PCP - General Internal Medicine 03/28/22 documented as of this encounter
--- OUTSIDE RECORDS SUMMARY | 2023-09-27 14:29 | External Medical Summary | Summary of Care ---
Author Name Unknown Organization [facility] Address [address] [place] [address] Phone [phone] Care Team Providers Care Form Setter Steel Forms Name Role Phone Rizwana Antunez MD Primary Care Provider [phone] Encounter Details Date Type Department Care Team (Late st Contact Info) Description 04/09/2023 Orders Only General Internal Medicine [facility] 200 [facility] [place] [place] [address] Rizwana Antunez MD 200 [place] [address] Encounter for screening mammogram for breast cancer* Allergies Active Allergy Reactions Criticality Noted Date [...] oxygen therapy ([facility]),IPF (idiopathic pulmonary fibrosis) ([facility]),assisted (current) use of systemic steroids Take 1 [...] than 7.0% ([facility]),Chronic respiratory failure with hypoxia, on home oxygen therapy ([facility]),IPF (idiopathic pulmonary fibrosis) ([facility]),assisted (current) use of systemic steroids Take 2 [...] pulmonary fibrosis) ([facility]) 2.5 mg NEBULIZER PRN 12/05/2022 12/05/2023 Active Albuterol Sulfate (Proventil) (5 MG/ML) 0.5% *conc* inhalation solution 2.5 mgIndications:IPF (idiopathic pulmonary fibrosis) ([facility]) 2.5 mg NEBULIZER PRN 12/05/2022 12/05/2023 Active Benralizumab (Fasenra) prefilled syringe 30 mgIndications:Severe persistent asthma without complication 30 mg SC [id number] 12/20/2022 06/06/2023 Acti ve documented as of [...] Care Team (Late st Contact Info) Description 04/12/2023 1:00 PM EST Nurse Only Pulmonary Medicine, [facility] 132 [facility] [place] [address] Gw, Nurse Pulmonary 132 [facility] [place] [address] 05/08/2023 3:00 PM EST Office Visit Palliative Medicine [facility] 200 [place] [address] Amarilys Ramirez MD [address] [place], [place] [address] [id number] 05/14/2023 9:00 AM EST PulmDiagnostic Pulmonary Function Lab, [facility] 132 [facility] [place] [address] West, Pft 132 [facility] [place] [address] 05/14/2023 10:00 AM EST Office Visit Pulmonary Medicine, [facility] 132 [facility] [place] [address] Frank Finch MD [facility] S [facility] [place] [address] 06/20/2023 10:00 AM EDT Laboratory Laboratory [facility] 200 [place] [address] Denzel Gunn [facility] 200 [place] [address] 06/25/2023 1:20 PM EDT Office Visit General Internal Medicine [facility] [address] [place] [address] Rizwana Antunez MD [address] [place] [address] 07/25/2023 1:30 PM EDT Office Visit Cardiology, [facility] 132 [place] [address] Ni Kay PA-C 400 [facility] [place] [address] 07/29/2023 10:00 AM EDT Imaging Radiology [facility] 1st [facility] 132 [facility] [place] [address] 12/02/2023 11:00 AM EDT Imaging Radiology, [facility] 2520 [facility] [place] [address] Scheduled Orders Name Type Priority Associated Diagnoses Orde r Schedule MAMMOGRAM SCREENING KVNG BILATERAL Medical Imaging Routine Encounter for screening mammogram for breast cancer Expected: 04/02/2024, Expires: 05/08/2024 Health Maintenance Due Date Last Done Comments [...] as of this encounter Visit Diagnoses Diagnosis Encounter for screening mammogram for breast cancer- Primary documented in this encounter Advance Directives Latest Code Status on File Code Status Date Activated Date Inactivated Comments Limited Code 11/26/2022 8:55 PM 12/04/2022 10:12 PM This order reflects the patients wishes and were consensually agreed upon. Question Answer Comments Discussion of Advance Directives occurred with: Patient Does the patient have a Living Will? No Does the patient have Health Care Power of Account Auditor? No Bag Valve Device? No Intubation? No Cardiac Compressions? Yes Defibrillation? Yes Synchronized Cardioversion? Yes External Pacemaker? Yes Cardiac Drugs? Yes Care Teams Form Setter Steel Forms Relationship Specialty Start Date End Date Rizwana Antunez MD [address] [place] [address] [place], [place] [address] PCP - General Internal Medicine 03/28/22 documented as of this encounter
--- OUTSIDE RECORDS SUMMARY | 2023-09-27 14:29 | External Medical Summary | Summary of Care ---
Author Name Unknown Organization [facility] Address [address] [facility] [place] [address] Phone [phone] Care Team Providers Care Import Clerk Name Role Phone Rizwana Antunez MD Primary Care Provider [phone] Reason for Visit * Reason Onset Date Comments Precert In Process 04/09/2023 Michael AquaHydrate c arol Encounter Details Date Type Department Care Team (Late st Contact Info) Description 04/09/2023 Telephone Pulmonary Medicine Cornelio Mays [address] [phone] Frank Finch MD [address] [phone] Precert In Process (ON24jose cruz rodriguez lilibeth /) Allergies Active Allergy [...] therapy ([facility]),IPF (idiopathic pulmonary fibrosis) ([facility]),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 Take 1 [...] therapy ([facility]),IPF (idiopathic pulmonary fibrosis) ([facility]),senior living (current) use of systemic steroids Take 2 [...] 2.5 mgIndications:IPF (idiopathic pulmonary fibrosis) ([facility]) 2.5 mg NEBULIZER PRN 12/05/2022 12/05/2023 Active Albuterol Sulfate (Proventil) (5 MG/ML) 0.5% *conc* inhalation solution 2.5 mgIndications:IPF (idiopathic pulmonary fibrosis) ([facility]) 2.5 mg NEBULIZER PRN 12/05/2022 12/05/2023 Active Benralizumab (Fasenra) prefilled syringe 30 mgIndications:Severe persistent asthma without complication 30 mg SC [id number] 12/20/2022 06/06/2023 Acti ve Albuterol Sulfate (Proventil) [...] 1:00 PM EST Nurse Only Pulmonary Medicine, [facility] 132 [facility] [place] [address] Gw, Nurse Pulmonary 132 [facility] [address] 05/08/2023 3:00 PM EST Office Visit Palliative Medicine [facility] 200 [place] [address] Amarilys Ramirez MD [address] [place] [address] 05/14/2023 9:00 AM EST PulmDiagnostic Pulmonary Function Lab, [facility] 132 [facility] [place] [address] West, Pft 132 [facility] [address] 05/14/2023 10:00 AM EST Office Visit Pulmonary Medicine, [address] [place] [address] Frank Finch MD [address] [place] [address] 06/20/2023 10:00 AM EDT Laboratory Laboratory [facility] [address] [place], [place] [address] [place], Lab [facility] [address] [place] [address] 06/25/2023 1:20 PM EDT Office Visit General Internal Medicine [facility] [address] [place] [address] Rizwana Antunez MD [address] [place] [address] 07/25/2023 1:30 PM EDT Office Visit Cardiology, [facility] [address] [place] [address] Ni Kay PA-C [address] [place] [address] 07/29/2023 10:00 AM EDT Imaging Radiology [facility] 1st [facility] 132 [place] [address] 12/02/2023 11:00 AM EDT Imaging Radiology, [place] [address]97990 [facility] [address] Health Maintenance Due Date Last Done Comments [...] the patient have Health Care Power of Harness Fitter? No Bag Valve Device? No Intubation? No Cardiac Compressions? Yes Defibrillation? Yes Synchronized Cardioversion? Yes External Pacemaker? Yes Cardiac Drugs? Yes Care Teams Import Clerk Relationship Specialty Start Date End Date Rizwana Antunez MD [address] [place] [address] PCP - General Internal Medicine 03/28/22 documented as of this encounter
--- OUTSIDE RECORDS SUMMARY | 2023-09-27 14:29 | External Medical Summary | Summary of Care ---
Author Name Unknown Organization [facility] Address [address] [place] [address] Phone [phone] Care Team Providers Care Building Architectural Designer Name Role Phone Rizwana Antunez MD Primary Care Provider [phone] Reason for Visit * Reason Onset Date Comments Medication Pre-auth 04/09/2023 Fasenra Encounter Details Date Type Department Care Team (Late st Contact Info) Description 04/09/2023 Telephone Pulmonary Medicine Cornelio Mays [address] [phone] Frank Finch MD [address] [phone] Medication Pre-auth (Fasenra /) Allergies Active Allergy [...] hemoglobin A1c goal of less than 7.0% ([facility]),Chronic respiratory failure with hypoxia, on home oxygen therapy ([facility]),IPF (idiopathic pulmonary fibrosis) ([facility]),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 Take 1 [...] hemoglobin A1c goal of less than 7.0% ([facility]),Chronic respiratory failure with hypoxia, on home oxygen therapy ([facility]),IPF (idiopathic pulmonary fibrosis) ([facility]),care home (current) use of systemic steroids [...] persistent asthma without complication 30 mg SC [id number] 12/20/2022 06/06/2023 Acti ve documented as of [...] [facility] 132 [facility] [address] Gw, Nurse Pulmonary 132 [facility] [place] [address] 05/08/2023 3:00 PM EST Office Visit Palliative Medicine [facility] 200 [place] [address] Amarilys Ramirez MD [address] [place] [address] [place] [address] 05/14/2023 9:00 AM EST PulmDiagnostic Pulmonary Function Lab, [facility] 132 [facility] [place] [address] West, Pft 132 [facility] [place] [address] 05/14/2023 10:00 AM EST Office Visit Pulmonary Medicine, [facility] 132 [facility] [place] [address] Frank Finch MD [address] [facility] [place] [address] 06/20/2023 10:00 AM EDT Laboratory Laboratory [facility] [address] [place] [phone] [facility] 200 [facility] [place] [address] 06/25/2023 1:20 PM EDT Office Visit General Internal Medicine [facility] [address] [place] [address] Rizwana Antunez MD [address] [place] [address] 07/25/2023 1:30 PM EDT Office Visit Cardiology, [facility] 132 [facility] [place] [address] Ni Kay PA-C [address] [place] [address] [place] [address] 07/29/2023 10:00 AM EDT Imaging Radiology [facility] 1st [facility] [address] [place] [address] 12/02/2023 11:00 AM EDT Imaging Radiology, [facility] 2520 [facility] [place] [address] Health Maintenance Due Date Last Done Comments [...] the patient have Health Care Power of Faculty I On Call Medical Assistant? No Bag Valve Device? No Intubation? No Cardiac Compressions? Yes Defibrillation? Yes Synchronized Cardioversion? Yes External Pacemaker? Yes Cardiac Drugs? Yes Care Teams Building Architectural Designer Relationship Specialty Start Date End Date Rizwana Antunez MD 200 [place] [address] PCP - General Internal Medicine 03/28/22 documented as of this encounter
--- OUTSIDE RECORDS SUMMARY | 2023-09-27 14:29 | External Medical Summary | Summary of Care ---
Author Name Unknown Organization [facility] Address [address] [place] [address] Phone [phone] Care Team Providers Care Outsole Cutter Machine Name Role Phone Rizwana Antunez MD Primary Care Provider [phone] Reason for Visit * Reason Onset Date Comments Medication Pre-auth 04/09/2023 Michael diehl Encounter Details Date Type Department Care Team (Late st Contact Info) Description 04/09/2023 Telephone Pulmonary Medicine Cornelio Mays [address] [phone] Frank Finch MD [address] [id number] Medication Pre-auth (Michael diehl /) Allergies Active [...] pulmonary fibrosis) ([facility]),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) use of systemic steroids Take 1 [...] pulmonary fibrosis) ([facility]),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) use of systemic steroids Take [...] persistent asthma without complication 30 mg SC [id number] 12/20/2022 06/06/2023 Acti ve documented as of [...] 1:00 PM EST Nurse Only Pulmonary Medicine, [facility] 132 [facility] [place] [address] Gw, Nurse Pulmonary 132 [facility] [place] [address] 05/08/2023 3:00 PM EST Office Visit Palliative Medicine [place], [place] [address] [place] [address] Amarilys Ramirez MD 400 [facility] [id number] 05/14/2023 9:00 AM EST PulmDiagnostic Pulmonary Function Lab, [facility] 132 [facility] [place] [address] West, Pft 132 [facility] [address] 05/14/2023 10:00 AM EST Office Visit Pulmonary Medicine, [facility] 132 [facility] [place] [address] Frank Finch MD [facility] [place] [facility] [place] [address] 06/20/2023 10:00 AM EDT Laboratory Laboratory [facility] 200 [facility] [place] [phone] [place], [facility] 200 [facility] [place], [place] [address] 06/25/2023 1:20 PM EDT Office Visit General Internal Medicine [facility] 200 [facility] [place], [place] [address] Rizwana Antunez MD 200 [facility] [place], [place] [address] 07/25/2023 1:30 PM EDT Office Visit Cardiology, [facility] 132 [place] [address] Ni Kay PA-C 400 [facility] [address] 07/29/2023 10:00 AM EDT Imaging Radiology [facility] 1st [facility] 132 [facility] [place] [address] 12/02/2023 11:00 AM EDT Imaging Radiology, [facility] 2520 [facility] [place] [address] Health Maintenance Due Date Last Done Comments [...] the patient have Health Care Power of Workforce Management Coordinator? No Bag Valve Device? No Intubation? No Cardiac Compressions? Yes Defibrillation? Yes Synchronized Cardioversion? Yes External Pacemaker? Yes Cardiac Drugs? Yes Care Teams Outsole Cutter Machine Relationship Specialty Start Date End Date Rizwana Antunez MD 200 [place] [address] PCP - General Internal Medicine 03/28/22 documented as of this encounter
--- OUTSIDE RECORDS SUMMARY | 2023-09-27 14:29 | External Medical Summary | Summary of Care ---
Author Name Unknown Organization [facility] Address [address] [place] [address] Phone [phone] Care Team Providers Care Mail Carrier Name Role Phone Rizwana Antunez MD Primary Care Provider [phone] Reason for Visit * Reason Onset Date Comments Medication Pre-auth 04/09/2023 Fasenra Encounter Details Date Type Department Care Team (Late st Contact Info) Description 04/09/2023 Telephone Pulmonary Medicine Cornelio Mays [address] [phone] Frank Finch MD [address] [id number] Medication Pre-auth (Fasenra /) Allergies Active Allergy [...] therapy ([facility]),IPF (idiopathic pulmonary fibrosis) ([facility]),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 132 [facility] [address] Gw, Nurse Pulmonary 132 [place] [address] 05/08/2023 3:00 PM EST Office Visit Palliative Medicine [facility] 200 [place] [address] Amarilys Ramirez MD [address] [place] [address] [place] [address] 05/14/2023 9:00 AM EST PulmDiagnostic Pulmonary Function Lab, [facility] 132 [facility] [place] [address] West, Pft 132 [facility] [place] [address] 05/14/2023 10:00 AM EST Office Visit Pulmonary Medicine, [facility] 132 [facility] [place] [address] Frank Finch MD 217 [address] [facility] [place] [address] 06/20/2023 10:00 AM EDT Laboratory Laboratory [facility] [address] [place] [id number] [facility] 200 [facility] [place] [address] 06/25/2023 1:20 PM EDT Office Visit General Internal Medicine [facility] [address] [place] [address] Rizwana Antunez MD [address] [place] [address] 07/25/2023 1:30 PM EDT Office Visit Cardiology, [facility] 132 [facility] [place] [address] Ni Kay PA-C [address] [place] [address] [place] [address] 07/29/2023 10:00 AM EDT Imaging Radiology [facility] 1st [facility] [address] [place] [address] 12/02/2023 11:00 AM EDT Imaging Radiology, [facility] 2520 [facility] [place] [address] Health Maintenance Due Date Last Done Comments [...] the patient have Health Care Power of Wood Crew Supervisor? No Bag Valve Device? No Intubation? No Cardiac Compressions? Yes Defibrillation? Yes Synchronized Cardioversion? Yes External Pacemaker? Yes Cardiac Drugs? Yes Care Teams Mail Carrier Relationship Specialty Start Date End Date Rizwana Antunez MD 200 [facility] [place] [address] PCP - General Internal Medicine 03/28/22 documented as of this encounter
--- OUTSIDE RECORDS SUMMARY | 2023-09-27 14:29 | External Medical Summary | Summary of Care ---
Author Name Unknown Organization [facility] Address [address] [place] [facility] [place] [address] Phone [phone] Care Team Providers Care Environmental Research Project Manager Name Role Phone Rizwana Antunez MD Primary Care Provider [phone] Reason for Visit * Reason Onset Date Comments Precert In Process 04/09/2023 [facility] c arol Encounter Details Date Type Department Care Team (Late st Contact Info) Description 04/09/2023 Telephone Pulmonary Medicine Cornelio Mays [address] [phone] Frank Finch MD [address] [phone] Precert In Process ([employer] Solutionsjose cruz rodriguez lilibeth /) Allergies Active Allergy [...] goal of less than 7.0% ([facility]),Chronic respiratory failure with hypoxia, on home oxygen therapy ([facility]),IPF (idiopathic pulmonary fibrosis) ([facility]),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 Take 1 [...] goal of less than 7.0% ([facility]),Chronic respiratory failure with hypoxia, on home oxygen therapy ([facility]),IPF (idiopathic pulmonary fibrosis) ([facility]),jail (current) use of systemic steroids Take 2 [...] 2.5 mgIndications:IPF (idiopathic pulmonary fibrosis) ([facility]) 2.5 mg NEBULIZER PRN 12/05/2022 12/05/2023 Active Albuterol Sulfate (Proventil) (5 MG/ML) 0.5% *conc* inhalation solution 2.5 mgIndications:IPF (idiopathic pulmonary fibrosis) ([facility]) 2.5 mg NEBULIZER PRN 12/05/2022 12/05/2023 Active Benralizumab (Fasenra) prefilled syringe 30 mgIndications:Severe persistent asthma without complication 30 mg SC [id number] 12/20/2022 06/06/2023 Acti ve Albuterol Sulfate (Proventil) [...] 1:00 PM EST Nurse Only Pulmonary Medicine, [facility] 132 [facility] [place] [address] Gw, Nurse Pulmonary 132 [facility] [address] 05/08/2023 3:00 PM EST Office Visit Palliative Medicine [facility] 200 [place] [address] Amarilys Ramirez MD [address] [place] [address] 05/14/2023 9:00 AM EST PulmDiagnostic Pulmonary Function Lab, [facility] 132 [facility] [place] [address] West, Pft 132 [facility] [place] [address] 05/14/2023 10:00 AM EST Office Visit Pulmonary Medicine, [address] [place] [address] Frank Finch MD 217 [place] [address] 06/20/2023 10:00 AM EDT Laboratory Laboratory [facility] [address] [place], [place] [phone] [place], Lab [facility] [address] [place] [address] 06/25/2023 1:20 PM EDT Office Visit General Internal Medicine [facility] [address] [place] [address] Rizwana Antunez MD [address] [place] [address] 07/25/2023 1:30 PM EDT Office Visit Cardiology, [facility] [address] [place] [address] Ni Kay PA-C 400 [place] [address] 07/29/2023 10:00 AM EDT Imaging Radiology [facility] 1st [facility] 132 [place] [address] 12/02/2023 11:00 AM EDT Imaging Radiology, [place] 496760 [facility] [address] Health Maintenance Due Date Last Done Comments [...] the patient have Health Care Power of Fence Post Driver? No Bag Valve Device? No Intubation? No Cardiac Compressions? Yes Defibrillation? Yes Synchronized Cardioversion? Yes External Pacemaker? Yes Cardiac Drugs? Yes Care Teams Environmental Research Project Manager Relationship Specialty Start Date End Date Rizwana Antunez MD [address] [place] [address] PCP - General Internal Medicine 03/28/22 documented as of this encounter
--- OUTSIDE RECORDS SUMMARY | 2023-09-27 14:29 | External Medical Summary | Summary of Care ---
Author Name Unknown Organization [facility] Address [address] [place] [facility] [place] [address] Phone [phone] Care Team Providers Care Contract Writer Name Role Phone Rizwana Antunez MD Primary Care Provider Reason for Visit * Reason Onset Date Comments Precert In Process 04/09/2023 Michael [employer] c arol Encounter Details Date Type Department Care Team (Late st Contact Info) Description 04/09/2023 Telephone Pulmonary Medicine Cornelio Mays [address] [phone] Frank Finch MD [address] [phone] Precert In Process ([employer]jose cruz rodriguez fazal /) Allergies Active Allergy [...] hemoglobin A1c goal of less than 7.0% ([facility]),Chronic respiratory failure with hypoxia, on home oxygen therapy ([facility]),IPF (idiopathic pulmonary fibrosis) (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),Chronic respiratory failure with hypoxia, on home oxygen therapy ([facility]),IPF (idiopathic pulmonary fibrosis) (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 Take [...] persistent asthma without complication 30 mg SC [id number] 12/20/2022 06/06/2023 Acti ve documented as of [...] 1:00 PM EST Nurse Only Pulmonary Medicine, [facility] 132 [facility] [place] [address] Gw, Nurse Pulmonary 132 [facility] [place] [address] 05/08/2023 3:00 PM EST Office Visit Palliative Medicine [facility] [address] [place] [address] Amarilys Ramirez MD 400 [facility] [id number] 05/14/2023 9:00 AM EST PulmDiagnostic Pulmonary Function Lab, [facility] 132 [place] [address] West, Pft 132 [place] [address] 05/14/2023 10:00 AM EST Office Visit Pulmonary Medicine, [facility] 132 [place] [address] Frank Finch MD [facility] S [facility] [place] [address] 06/20/2023 10:00 AM EDT Laboratory Laboratory [facility] 200 [place] [address] [place], [facility] 200 [facility] [place], [place] [address] 06/25/2023 1:20 PM EDT Office Visit General Internal Medicine [facility] 200 [facility] [place], [place] [address] Rizwana Antunez MD 200 [facility] [place], [place] [address] 07/25/2023 1:30 PM EDT Office Visit Cardiology, [facility] 132 [facility] [address] Ni Kay PA-C [address] [place] [address] 07/29/2023 10:00 AM EDT Imaging Radiology [facility] 1st [facility] [address] [place] [address] 12/02/2023 11:00 AM EDT Imaging Radiology, [facility] 2520 [facility] [place] [address] Health Maintenance Due Date Last Done Comments [...] the patient have Health Care Power of Dust Mixer? No Bag Valve Device? No Intubation? No Cardiac Compressions? Yes Defibrillation? Yes Synchronized Cardioversion? Yes External Pacemaker? Yes Cardiac Drugs? Yes Care Teams Contract Writer Relationship Specialty Start Date End Date Rizwana Antunez MD 200 [place] [address] PCP - General Internal Medicine 03/28/22 documented as of this encounter
--- OUTSIDE RECORDS SUMMARY | 2023-09-27 14:30 | External Medical Summary | Summary of Care ---
Author Name Unknown Organization [facility] Address [address] [place] [address] Phone [phone] Care Team Providers Care Deputy Attorney General Name Role Phone Rizwana Antunez MD Primary Care Provider Reason for Visit * Reason Onset Date Comments Medication Pre-auth 04/04/2023 Fasenra 30mg /ml syringes Encounter Details Date Type Department Care Team (Late st Contact Info) Description 04/04/2023 Telephone Pulmonary Medicine Cornelio Mays [address] [phone] Frank Finch MD [address] [phone] Medication Pre-auth (Fasenra 30mg/ml syrin... Allergies Active Allergy Reactions Criticality Noted Date Comments Lisinopril Cough 05/04/2022 documented as of this encounter (statuses as of 04/04/2023) Medications Medication Sig Dispensed Refills Start Date [...] HOSPITAL),IPF (idiopathic pulmonary fibrosis) ([facility]),alf (current) use of systemic steroids Take 1 [...] HOSPITAL),IPF (idiopathic pulmonary fibrosis) ([facility]),supervisor intermediates (current) use of systemic steroids Take 2 [...] persistent asthma without complication 30 mg SC [id number] 12/20/2022 06/06/2023 Acti ve documented as of this encounter (statuses as of 04/04/2023) Active Problems Problem Noted Date Diagnosed Date [...] as of this encounter (statuses as of 04/04/2023) Resolved Problems Problem Noted Date Diagnosed Date Resolved Date Acute pulmonary edema 11/30/20222022 Acute on chronic respiratory failure with hypoxia 11/27/2022 12/10/2022 Bacteremia due to Staphylococcus epidermidis 12/10/2022 Multifocal pneumonia 11/26/2022 023 Severe persistent asthma with exacerbation 07/31/2022 12/10/2022 Severe obesity with body mas s index (BMI) of 35.0 to 39.9 with serious comorbidity 11/20/2021 documented as of this encounter (statuses as of 04/04/2023) Immunizations Name Administration Dates Next Due COVID-19 [...] Telephone Encounter - Mel Goodwin LPN - 04/04/2023 8:37 AM EST Pulmonary Medicine Pre-Cert Request Medication/Disease State Information: Medication: Fasenra 30 mg/ml Syringes Diagnosis (including ICD-10): Severe persistent asthma without complication.J45.50 Medication(s) Tried/Failed/Contraindicated:Spiriva is quite expensive patient asked for alternative See corresponding visit note(s) for additional supporting clinical information. Office Information: Prescriber: Dr. Frank Bazzi. documented in this encounter Plan of Treatment Upcoming Encounters Date Type Department Care Team (Late st Contact Info) Description 04/09/2023 11:00 AM EST Nurse Only [facility]illary [facility] [address] [place] [address] Nurse, Int Med 200 [facility] [place] [address] 04/12/2023 1:00 PM EST Nurse Only Pulmonary Medicine, [facility] 132 [facility] [place] [address] Gw, Nurse Pulmonary 132 [facility] [place] [address] 05/08/2023 3:00 PM EST Office Visit Palliative Medicine [facility] [address] [place] [address] Amarilys Ramirez MD [address] [place] [address] 05/14/2023 9:00 AM EST PulmDiagnostic Pulmonary Function Lab, [facility] 132 [facility] [place] [address] West, Pft 132 [place] [address] 05/14/2023 10:00 AM EST Office Visit Pulmonary Medicine, [facility] 132 [facility] [place] [address] Frank Finch MD [facility] [place] [address] 06/20/2023 10:00 AM EDT Laboratory Laboratory [facility] 200 [facility] [place], [place] [address] [place], Lab [address], [place] [address] 06/25/2023 1:20 PM EDT Office Visit General Internal Medicine [facility] 200 [facility] [place], [place] [address] Rizwana Antunez MD 200 [place] [address] 07/25/2023 1:30 PM EDT Office Visit Cardiology, [facility] 132 [facility] [place] [address] Ni Kay PA-C [address] [place] [address] 07/29/2023 10:00 AM EDT Imaging Radiology [address] [place] [address] 12/02/2023 11:00 AM EDT Imaging Radiology, [facility] 2520 [facility] [place] [address] Health Maintenance Due Date Last Done Comments [...] the patient have Health Care Power of Woodenware Assembler? No Bag Valve Device? No Intubation? No Cardiac Compressions? Yes Defibrillation? Yes Synchronized Cardioversion? Yes External Pacemaker? Yes Cardiac Drugs? Yes Care Teams Deputy Attorney General Relationship Specialty Start Date End Date Rizwana Antunez MD 200 [facility] [place] [address] PCP - General Internal Medicine 03/28/22 documented as of this encounter
--- OUTSIDE RECORDS SUMMARY | 2023-09-27 14:30 | External Medical Summary | Summary of Care ---
Author Name Unknown Organization [facility] Address [address] [place] [address] Phone [phone] Care Team Providers Care Clerical Transcriber Name Role Phone Rizwana Antunez MD Primary Care Provider [phone] Reason for Visit * Reason Onset Date Comments Medication Pre-auth 04/04/2023 Fasenra 30mg /ml syringes Encounter Details Date Type Department Care Team (Late st Contact Info) Description 04/04/2023 Telephone Pulmonary Medicine Cornelio Mays [address] [phone] Frank Finch MD [address] [address] [phone] Medication Pre-auth (Fasenra 30mg/ml syrin... 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 Please recent and appeal with office visit notes from Dr. Angeles's office visit in January 2023. * Telephone Encounter - Mel Goodwin LPN [...] 04/09/2023 11:00 AM EST Nurse Only Ancillary [facility] [place] [address] [place] [address] Nurse, Int Med [address] [place] [address] 04/12/2023 1:00 PM EST Nurse Only Pulmonary Medicine, [facility] 132 [facility] [place] [address] Gw, Nurse Pulmonary 132 [facility] [address] 05/08/2023 3:00 PM EST Office Visit Palliative Medicine [facility] [address] [place] [address] Amarilys Ramirez MD [address] [place] [address] [place] [address] 05/14/2023 9:00 AM EST PulmDiagnostic Pulmonary Function Lab, [facility] 132 [facility] [place] [address] West, Pft 132 [facility] [place] [address] 05/14/2023 10:00 AM EST Office Visit Pulmonary Medicine, [facility] 132 [facility] [place] [address] Frank Finch MD [address] [facility] [address] 06/20/2023 10:00 AM EDT Laboratory Laboratory [facility] [address] [place] [phone] [place], Lab Scenery [address] [place], [place] [address] 06/25/2023 1:20 PM EDT Office Visit General Internal Medicine [facility] [address] [place], [place] [address] Rizwana Antunez MD [address] [place] [address] 07/25/2023 1:30 PM EDT Office Visit Cardiology, [facility] 132 [facility] [place] [address] Ni Kay PA-C [address] [place] [address] [place] [address] 07/29/2023 10:00 AM EDT Imaging Radiology [facility] 1st [facility] 132 [place] [address] 12/02/2023 11:00 AM EDT Imaging Radiology, [facility] 2520 [facility] [address] Health Maintenance Due Date Last Done Comments [...] the patient have Health Care Power of Aircraft Maintenance Engineer? No Bag Valve Device? No Intubation? No Cardiac Compressions? Yes Defibrillation? Yes Synchronized Cardioversion? Yes External Pacemaker? Yes Cardiac Drugs? Yes Care Teams Clerical Transcriber Relationship Specialty Start Date End Date Rizwana Antunez MD [address] [place] [address] [place] [address] PCP - General Internal Medicine 03/28/22 documented as of this encounter
--- NOTE | 2023-09-27 14:35 | Palliative Care Consultation ---
Date of Consultation September 27, 2023 Assessment & Plan (1) Dyspnea and respiratory abnormalities: (2) Weakness generalized: (3) Advanced care planning/counseling discussion: 45min face to face ACP with pt code status d/w pt along with Dr Chan; we reviewed CPR survival statistics and overall poor prognosis of CPR in context of very adv lung failure + severe PH She agrees to no code, reiterates and reaffirms she does not want to prolong dying, she has had many discussions with family about her wishes and all are in agreement She shared her is [place] with residual MH issues form that time which he aha only recently [facility]; she feels he will have a very difficult time with her . She states they were going to meet hospice at their home on Saturday for general information; she has a close friend from [place] who is a hospice nurse and understands the value to engaging them earlier rather than later. I suggested she call hospice to see if they can come see her while she is here. We reviewed hospice services and their scope. We agreed to see how the weekend goes, trial of diuresis and aim to reduce/wean HFNC to allow return home Ultimately she wishes to be home for EOL but adds that if she were to decline while here, she would wish for transition to comfort care in the event of worsening. (4) Encounter for hospice care discussion: I provided education about the hospice benefit: an interdisciplinary program offered by nurses, nurses aides, social workers, chaplains and a medical technologist blood bank for patients with a terminal condition and a life expectancy of less than 6 months. This is covered by Medicare at 100%/no out of pocket expense to patient and all meds/supplies needed by patient for the reason they are on hospice are paid for/covered by hospice. The goal is assure quality of life of the patient in their home setting (home, intermediate, inpatient hospice setting) by providing symptoms management, psychosocial and spiritual support. However, they cannot offer 24 hours care and if the family is unable to provide that care, they will have to consider personal care with out of pocket cost vs. intermediate placement. We discussed the goals of hospice as a patient service and the goals of care; we discussed EOL trajectories and transitions narciso the emotional impact of realizing mortality as a concrete reality from prior abstract considerations. Pt was reassured that no matter where they are along this trajectory, they are not alone - their medical team will remain by their side through their journey. Discussed the pros/cons of accepting help when especially weakened and distressed by pain-which would also help provide relief/decrease caregiver burden/strain. (5) Palliative care by specialist: She is well versed in Pall med svcs thru her existing relationship with [facility] Pall med. Plan As above Code is DNR/DNI, order written Thank you for allowing us to participate in the ongoing care of this patient. Please page with any additional concerns. Gio Babcock DNP Director, Palliative Medicine History of Present Illness Reason for Consultation: ADv ILD Attending Physician: Robin Doll MD History of Present Illness Consult note written in paper chart during [facility] downtime. Nicolasa Gomez (Susie) is a 73yo female admitted from [facility] Pul clinic with resp distress. She was at her routine pulm appt to see Dr Finch and have her Fasenra injection but was noted to be unwell. She reports generally feeling unwell for about 2 weeks prior to this presentation with an insidious onset of worsening dyspnea and fatigue. In ED she was found to be hypoxic on her baseline 14lpm NC She is now on HFNC Resting in bed semi recline at time of my visit No family present Additional details in paper chart Allergies Allergy/AdvReac Type Severity Reaction Status Date / Time lisinopril Allergy Cough Verified 10/28/22 00:10 Home Medications Medication Instructions Recorded Confirmed Type metformin 500 mg tablet,extended 1,000 mg PO QPM 10/28/22 09/26/23 History release 24 hr omeprazole 20 mg capsule,delayed 20 mg PO QAM 10/28/22 09/26/23 History release pirfenidone 801 mg tablet 801 mg PO TID 10/28/22 09/26/23 History benralizumab 30 mg/mL subcutaneous 30 mg subcut UD 12/30/22 09/26/23 History syringe (Fasenra) atorvastatin 10 mg tablet 10 mg PO DAILY 09/26/23 09/26/23 History azithromycin 250 mg tablet 250 mg PO [id number] 09/26/23 09/26/23 History budesonide 160 mcg-glycopyr 9 2 inh inhalation BID 09/26/23 09/26/23 History mcg-formot 4.8 mcg/actuation HFA inhaler (Breztri Aerosphere) empagliflozin 10 mg tablet 10 mg PO DAILY 09/26/23 09/26/23 History (Jardiance) ipratropium 0.5 mg-albuterol 3 mg 3 ml NEB Q6 PRN shortness of 09/26/23 09/26/23 History (2.5 mg base)/3 mL nebulization breath or wheezing soln loratadine 10 mg tablet 10 mg PO DAILY PRN Allergy Symptoms 09/26/23 09/26/23 History losartan 25 mg tablet 25 mg PO DAILY 09/26/23 09/26/23 History prednisone 20 mg tablet 20 mg PO DAILY 09/26/23 09/26/23 History Patient History Medical History No pertinent family history Asthma Interstitial lung disease IPF (idiopathic pulmonary fibrosis) Surgical History No pertinent past surgical history Family History Other Hypertension Social History Smoking Status: Never smoker Second Hand Exposure: No; Do You Dip or Chew Tobacco: No; Hx Alcohol Use: Yes Alcohol type: beer, wine and hard liquor Hx Substance Use: No Preferred Language: Croatian Communication Ability: Effective Dairy Nutrition Specialist Required: No Beliefs That Will Affect Care: None Current Living Situation: Spouse Other Information That Helps Us Care for You: No Feels Safe at Home: Yes Safety Concerns: Feels Safe At This Time Assistive Devices: Wheelchair Assistive Devices Comment: wheelchair for long distance amb Review of Systems Review of Systems: All systems reviewed & are unremarkable except as noted in Subjective Physical Exam Constitutional: + acute distress, + ill appearing, + thi n and + frail appearing Eyes: PERRL, conjunctivae normal, anicteric sclerae ENMT: external ear and nose normal, oropharynx normal Neck: trachea midline, no thyromegaly Respiratory: + respiratory distress, + labored breath ing, + uses accessory muscles, + cough, + pursed lip breathing and symmetric chest movement; + not able to speak in complete sentence Auscultation: + crackles Cardiovascular: Rate/Rhythm: + tachycardic Heart Sounds: + gallop Extremities: no pedal edema Gastrointestinal (Abdomen): normal bowel sounds, soft, nontender, no hepatosplenomegaly Musculoskeletal: gen weakness Skin: + turgor decreased and + pallor Neurologic: PERRL, EOMI, accommodation nl, no face palsy, no dysarthria Psychiatric: A+Ox3, euthymic affect Results & Data Laboratory Results 09/27/23 09/27/23 09/27/23 Range/Units 14:24 11:09 07:05 WBC (4.8-10.8) K/ul RBC (4.20-5.40) M/uL Hgb (12.0-16.0) g/dl POC Hgb (12.0-16.0) g/dl Hct (37.0-47.0) % POC Hct (37-47) % MCV (80.0-100.0) fL MCH (25.0-34.0) pg MCHC (32.0-36.0) g/dL RDW Std Deviation (36.4-46.3) fL RDW Coeff of Lynn (11.5-14.5) % Plt Count (130-400) K/uL MPV (9.4-12.4) fL Immature Gran % (Auto) % Neut % (Auto) % Lymph % (Auto) % [place] % (Auto) % Eos % (Auto) % Baso % (Auto) % Neut # (Auto) (1.40-6.50) K/uL Lymph # (Auto) (1.20-3.40) K/uL [place] # (Auto) (0.11-0.59) K/uL Eos # (Auto) (0.00-0.50) K/uL Baso # (Auto) (0.00-0.20) K/uL Immature Gran # (Auto) (0.01-0.20) K/uL Polychromasia VBG pH (7.36-7.41) VBG pCO2 (38-50) mmHg VBG pO2 mmHg VBG HCO3 mmol/L VBG O2 Saturation % VBG Base Excess mEq/L POC Sodium (135-144) mmol/L Sodium (136-145) mmol/L POC Potassium (3.3-5.0) mmol/L Potassium (3.5-5.1) mmol/L POC Chloride (101-112) mmol/L Chloride (98-107) mmol/L Carbon Dioxide (21-32) mmol/L POC Total CO2 (24-31) mmol/L Anion Gap (3-11) POC Anion Gap (16-25) mmol/L POC BUN (7-18) mg/dl BUN (6-23) mg/dl Creatinine (0.6-1.2) mg/dl POC Creatinine (0.6-1.3) mg/dl Est Cr Clr Drug Dosing ml/min Est GFR ( Amer) ml/min Est GFR (Non-Af Amer) ml/min BUN/Creatinine Ratio (10-20) Glucose (70-99(Fasting)) mg/dl POC Glucose Pending Pending (70-99) mg/dl POC Glucose (other) (70-99) mg/dl Calcium (8.6-10.3) mg/dl POC Ioniz Calcium Estephanie (1.12-1.32) mmol/l Magnesium (1.7-2.4) mg/dl Total Bilirubin (0.2-1.0) mg/dl AST (13-39) U/L ALT (7-52) U/L Alkaline Phosphatase (34-104) U/L Troponin I High Sens (0-14) pg/ml B-Natriuretic Peptide Pending Total Protein (6.0-8.3) gm/dl Albumin (3.4-5.0) gm/dl Globulin (2.5-4.0) gm/dl Albumin/Globulin Ratio (0.9-2) Lipase (11-82) U/L Procalcitonin (0-0.5) ng/ml Adenovirus (PCR) (NotDetected) B. pertussis DNA (PCR) (NotDetected) B.parapertussis DNA PCR (NotDetected) C. pneumoniae DNA (PCR) (NotDetected) Coronavirus OC43 (PCR) (NotDetected) Coronavirus HKU1 (PCR) (NotDetected) Coronavirus 229E (PCR) (NotDetected) SARS-CoV-2 (PCR) (NotDetected) Coronavirus NL63 (PCR) (NotDetected) Human Metapneumovir PCR (NotDetected) Influenza Type A (PCR) (NotDetected) Influenza Type B (PCR) (NotDetected) M. pneumoniae (PCR) (NotDetected) Parainfluenza 1 (PCR) (NotDetected) Parainfluenza 2 (PCR) (NotDetected) Parainfluenza 3 (PCR) (NotDetected) Parainfluenza 4 (PCR) (NotDetected) RSV (PCR) (NotDetected) Entero/Rhino (PCR) (NotDetected) 09/26/23 09/26/23 09/26/23 Range/Units 20:22 20:06 17:29 WBC (4.8-10.8) K/ul RBC (4.20-5.40) M/uL Hgb (12.0-16.0) g/dl POC Hgb (12.0-16.0) g/dl Hct (37.0-47.0) % POC Hct (37-47) % MCV (80.0-100.0) fL MCH (25.0-34.0) pg MCHC (32.0-36.0) g/dL RDW Std Deviation (36.4-46.3) fL RDW Coeff of Lynn (11.5-14.5) % Plt Count (130-400) K/uL MPV (9.4-12.4) fL Immature Gran % (Auto) % Neut % (Auto) % Lymph % (Auto) % [place] % (Auto) % Eos % (Auto) % Baso % (Auto) % Neut # (Auto) (1.40-6.50) K/uL Lymph # (Auto) (1.20-3.40) K/uL [place] # (Auto) (0.11-0.59) K/uL Eos # (Auto) (0.00-0.50) K/uL Baso # (Auto) (0.00-0.20) K/uL Immature Gran # (Auto) (0.01-0.20) K/uL Polychromasia VBG pH (7.36-7.41) VBG pCO2 (38-50) mmHg VBG pO2 mmHg VBG HCO3 mmol/L VBG O2 Saturation % VBG Base Excess mEq/L POC Sodium (135-144) mmol/L Sodium (136-145) mmol/L POC Potassium (3.3-5.0) mmol/L Potassium (3.5-5.1) mmol/L POC Chloride (101-112) mmol/L Chloride (98-107) mmol/L Carbon Dioxide (21-32) mmol/L POC Total CO2 (24-31) mmol/L Anion Gap (3-11) POC Anion Gap (16-25) mmol/L POC BUN (7-18) mg/dl BUN (6-23) mg/dl Creatinine (0.6-1.2) mg/dl POC Creatinine (0.6-1.3) mg/dl Est Cr Clr Drug Dosing ml/min Est GFR ( Amer) ml/min Est GFR (Non-Af Amer) ml/min BUN/Creatinine Ratio (10-20) Glucose (70-99(Fasting)) mg/dl POC Glucose 214 H (70-99) mg/dl POC Glucose (other) (70-99) mg/dl Calcium (8.6-10.3) mg/dl POC Ioniz Calcium Estephanie (1.12-1.32) mmol/l Magnesium (1.7-2.4) mg/dl Total Bilirubin (0.2-1.0) mg/dl AST (13-39) U/L ALT (7-52) U/L Alkaline Phosphatase (34-104) U/L Troponin I High Sens 27.5 H 29.2 H (0-14) pg/ml B-Natriuretic Peptide Total Protein (6.0-8.3) gm/dl Albumin (3.4-5.0) gm/dl Globulin (2.5-4.0) gm/dl Albumin/Globulin Ratio (0.9-2) Lipase (11-82) U/L Procalcitonin (0-0.5) ng/ml Adenovirus (PCR) (NotDetected) B. pertussis DNA (PCR) (NotDetected) B.parapertussis DNA PCR (NotDetected) C. pneumoniae DNA (PCR) (NotDetected) Coronavirus OC43 (PCR) (NotDetected) Coronavirus HKU1 (PCR) (NotDetected) Coronavirus 229E (PCR) (NotDetected) SARS-CoV-2 (PCR) (NotDetected) Coronavirus NL63 (PCR) (NotDetected) Human Metapneumovir PCR (NotDetected) Influenza Type A (PCR) (NotDetected) Influenza Type B (PCR) (NotDetected) M. pneumoniae (PCR) (NotDetected) Parainfluenza 1 (PCR) (NotDetected) Parainfluenza 2 (PCR) (NotDetected) Parainfluenza 3 (PCR) (NotDetected) Parainfluenza 4 (PCR) (NotDetected) RSV (PCR) (NotDetected) Entero/Rhino (PCR) (NotDetected) 09/26/23 09/26/23 09/26/23 Range/Units 17:21 16:28 14:43 WBC 16.15 H (4.8-10.8) K/ul RBC 4.42 (4.20-5.40) M/uL Hgb 12.9 (12.0-16.0) g/dl POC Hgb (12.0-16.0) g/dl Hct 40.2 (37.0-47.0) % POC Hct (37-47) % MCV 91.0 (80.0-100.0) fL MCH 29.2 (25.0-34.0) pg MCHC 32.1 (32.0-36.0) g/dL RDW Std Deviation 52.5 H (36.4-46.3) fL RDW Coeff of Lynn 15.8 H (11.5-14.5) % Plt Count 275 (130-400) K/uL MPV 11.4 (9.4-12.4) fL Immature Gran % (Auto) 0.7 % Neut % (Auto) 93.3 % Lymph % (Auto) 3.8 % [place] % (Auto) 2.1 % Eos % (Auto) 0.0 % Baso % (Auto) 0.1 % Neut # (Auto) 15.06 H (1.40-6.50) K/uL Lymph # (Auto) 0.61 L (1.20-3.40) K/uL [place] # (Auto) 0.34 (0.11-0.59) K/uL Eos # (Auto) 0.00 (0.00-0.50) K/uL Baso # (Auto) 0.02 (0.00-0.20) K/uL Immature Gran # (Auto) 0.12 (0.01-0.20) K/uL Polychromasia 1+ VBG pH 7.33 L (7.36-7.41) VBG pCO2 40 (38-50) mmHg VBG pO2 42 mmHg VBG HCO3 21 mmol/L VBG O2 Saturation 68.2 % VBG Base Excess -4.5 mEq/L POC Sodium (135-144) mmol/L Sodium 140 (136-145) mmol/L POC Potassium (3.3-5.0) mmol/L Potassium 4.5 (3.5-5.1) mmol/L POC Chloride (101-112) mmol/L Chloride 105 (98-107) mmol/L Carbon Dioxide 22 (21-32) mmol/L POC Total CO2 (24-31) mmol/L Anion Gap 13 H (3-11) POC Anion Gap (16-25) mmol/L POC BUN (7-18) mg/dl BUN 39 H (6-23) mg/dl Creatinine 0.90 (0.6-1.2) mg/dl POC Creatinine (0.6-1.3) mg/dl Est Cr Clr Drug Dosing 52.2 ml/min Est GFR ( Amer) 73.0 ml/min Est GFR (Non-Af Amer) 63.0 ml/min BUN/Creatinine Ratio 43.3 H (10-20) Glucose 327 H* (70-99(Fasting)) mg/dl POC Glucose 277 H (70-99) mg/dl POC Glucose (other) (70-99) mg/dl Calcium 9.7 (8.6-10.3) mg/dl POC Ioniz Calcium Estephanie (1.12-1.32) mmol/l Magnesium 2.1 (1.7-2.4) mg/dl Total Bilirubin 0.5 (0.2-1.0) mg/dl AST 21 (13-39) U/L ALT 31 (7-52) U/L Alkaline Phosphatase 50 (34-104) U/L Troponin I High Sens 31.8 H 29.1 H (0-14) pg/ml B-Natriuretic Peptide Total Protein 7.5 (6.0-8.3) gm/dl Albumin 4.0 (3.4-5.0) gm/dl Globulin 3.5 (2.5-4.0) gm/dl Albumin/Globulin Ratio 1.1 (0.9-2) Lipase 20 (11-82) U/L Procalcitonin < 0.02 (0-0.5) ng/ml Adenovirus (PCR) Not Detected (NotDetected) B. pertussis DNA (PCR) Not Detected (NotDetected) B.parapertussis DNA PCR Not Detected (NotDetected) C. pneumoniae DNA (PCR) Not Detected (NotDetected) Coronavirus OC43 (PCR) Not Detected (NotDetected) Coronavirus HKU1 (PCR) Not Detected (NotDetected) Coronavirus 229E (PCR) Not Detected (NotDetected) SARS-CoV-2 (PCR) Not Detected (NotDetected) Coronavirus NL63 (PCR) Not Detected (NotDetected) Human Metapneumovir PCR Not Detected (NotDetected) Influenza Type A (PCR) Not Detected (NotDetected) Influenza Type B (PCR) Not Detected (NotDetected) M. pneumoniae (PCR) Not Detected (NotDetected) Parainfluenza 1 (PCR) Not Detected (NotDetected) Parainfluenza 2 (PCR) Not Detected (NotDetected) Parainfluenza 3 (PCR) Not Detected (NotDetected) Parainfluenza 4 (PCR) Not Detected (NotDetected) RSV (PCR) Not Detected (NotDetected) Entero/Rhino (PCR) Not Detected (NotDetected) 09/26/23 Range/Units 14:39 WBC (4.8-10.8) K/ul RBC (4.20-5.40) M/uL Hgb (12.0-16.0) g/dl POC Hgb 13.3 (12.0-16.0) g/dl Hct (37.0-47.0) % POC Hct 39 (37-47) % MCV (80.0-100.0) fL MCH (25.0-34.0) pg MCHC (32.0-36.0) g/dL RDW Std Deviation (36.4-46.3) fL RDW Coeff of Lynn (11.5-14.5) % Plt Count (130-400) K/uL MPV (9.4-12.4) fL Immature Gran % (Auto) % Neut % (Auto) % Lymph % (Auto) % [place] % (Auto) % Eos % (Auto) % Baso % (Auto) % Neut # (Auto) (1.40-6.50) K/uL Lymph # (Auto) (1.20-3.40) K/uL [place] # (Auto) (0.11-0.59) K/uL Eos # (Auto) (0.00-0.50) K/uL Baso # (Auto) (0.00-0.20) K/uL Immature Gran # (Auto) (0.01-0.20) K/uL Polychromasia VBG pH (7.36-7.41) VBG pCO2 (38-50) mmHg VBG pO2 mmHg VBG HCO3 mmol/L VBG O2 Saturation % VBG Base Excess mEq/L POC Sodium 140 (135-144) mmol/L Sodium (136-145) mmol/L POC Potassium 4.5 (3.3-5.0) mmol/L Potassium (3.5-5.1) mmol/L POC Chloride 106 (101-112) mmol/L Chloride (98-107) mmol/L Carbon Dioxide (21-32) mmol/L POC Total CO2 20 L (24-31) mmol/L Anion Gap (3-11) POC Anion Gap 20.0 (16-25) mmol/L POC BUN 33 H (7-18) mg/dl BUN (6-23) mg/dl Creatinine (0.6-1.2) mg/dl POC Creatinine 0.9 (0.6-1.3) mg/dl Est Cr Clr Drug Dosing ml/min Est GFR ( Amer) ml/min Est GFR (Non-Af Amer) ml/min BUN/Creatinine Ratio (10-20) Glucose (70-99(Fasting)) mg/dl POC Glucose (70-99) mg/dl POC Glucose (other) 320 H (70-99) mg/dl Calcium (8.6-10.3) mg/dl POC Ioniz Calcium Estephanie 1.21 (1.12-1.32) mmol/l Magnesium (1.7-2.4) mg/dl Total Bilirubin (0.2-1.0) mg/dl AST (13-39) U/L ALT (7-52) U/L Alkaline Phosphatase (34-104) U/L Troponin I High Sens (0-14) pg/ml B-Natriuretic Peptide Total Protein (6.0-8.3) gm/dl Albumin (3.4-5.0) gm/dl Globulin (2.5-4.0) gm/dl Albumin/Globulin Ratio (0.9-2) Lipase (11-82) U/L Procalcitonin (0-0.5) ng/ml Adenovirus (PCR) (NotDetected) B. pertussis DNA (PCR) (NotDetected) B.parapertussis DNA PCR (NotDetected) C. pneumoniae DNA (PCR) (NotDetected) Coronavirus OC43 (PCR) (NotDetected) Coronavirus HKU1 (PCR) (NotDetected) Coronavirus 229E (PCR) (NotDetected) SARS-CoV-2 (PCR) (NotDetected) Coronavirus NL63 (PCR) (NotDetected) Human Metapneumovir PCR (NotDetected) Influenza Type A (PCR) (NotDetected) Influenza Type B (PCR) (NotDetected) M. pneumoniae (PCR) (NotDetected) Parainfluenza 1 (PCR) (NotDetected) Parainfluenza 2 (PCR) (NotDetected) Parainfluenza 3 (PCR) (NotDetected) Parainfluenza 4 (PCR) (NotDetected) RSV (PCR) (NotDetected) Entero/Rhino (PCR) (NotDetected) Diagnostic Findings Chest CTA 09/26/23 14:28 CT ANGIOGRAM OF THE CHEST CLINICAL HISTORY: Dyspnea COMPARISON STUDY: Chest CT dated 12/30/2022. Chest x-ray dated 09/26/2023. TECHNIQUE: Following the IV administration of 119 cc of Optiray 320, CT angiogram of the chest was performed from the upper abdomen to the thoracic inlet utilizing the pulmonary embolus protocol. Images are reviewed in the axial, sagittal, and coronal planes. 3-D MIPS images are created and assessed. IV contrast was administered without complication. A dose lowering technique was utilized adhering to the principles of ALARA. CT DOSE: 745.76 mGy.cm FINDINGS: Thyroid: Imaged portions of the thyroid gland are normal in size and attenuation. Thoracic aorta: There is atherosclerotic calcification of the thoracic aorta, which is normal in caliber and demonstrates 4-vessel variant arch anatomy. 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 No dissection is seen. Pulmonary vasculature: The pulmonary trunk is dilated, measuring 3.3 cm in diameter. This suggests pulmonary artery hypertension. There are no filling defects identified in main, lobar, or segmental pulmonary branches to suggest pulmonary embolus. Heart: The heart is enlarged without pericardial effusion. Lungs and pleural spaces: Again seen are changes of chronic interstitial/fibrotic lung disease. There is diffuse subpleural reticulation with intralobular septal thickening and groundglass consolidation. This shows a lower lobe predominance. Traction bronchiectasis is seen throughout both lungs. There are scattered foci of honeycombing. Foci of air trapping are seen bilaterally. No superimposed airspace consolidation or pleural effusion is identified. The trachea and central airways are clear. Scattered calcified granulomas are observed. Mediastinum: Enlarged high right paratracheal lymph node on image #188 is similar to previous, measuring 1.8 x 1.4 cm. A precarinal node is also unchanged, measuring up to 1.3 cm in short axis. [place]: Mildly enlarged hilar nodes are similar to previous, measuring up to 13 mm in short axis. Axillae: There is no axillary lymphadenopathy. Upper abdomen: Gallstones are noted. There is a small hiatal hernia. Skeletal structures: The skeletal structures are osteopenic. Degenerative change is noted in the shoulders and spine. No lytic or blastic bony lesions are seen. IMPRESSION: 1. There is no evidence of pulmonary embolus in the main, lobar, or segmental pulmonary arteries. 2. Cardiomegaly with evidence of pulmonary artery hypertension. 3. Again seen are findings of chronic interstitial/fibrotic lung disease. 4. No superimposed air space consolidation or pleural effusion is identified. 5. Mildly enlarged mediastinal and hilar lymph nodes are similar to previous and likely related to chronic lung disease. 6. Cholelithiasis. 7. Additional findings as above. ACT 112: Negative or not required by law. Electronically signed by: Tj Calvert M.D. 09/26/2023 3:31 PM Chest X-Ray 09/26/23 14:28 XR chest 1V portable CLINICAL HISTORY: Chest pain, nonspecific TECHNIQUE: Single frontal radiograph of the chest was obtained. Comparison: Comparison is made to chest radiograph 12/30/2022 FINDINGS: No lines and tubes are seen. Cardiomegaly is noted. The aortic arch is calcified. Reticular interstitial opacities are seen. No evidence of pleural effusion or pneumothorax. IMPRESSION: No acute chest disease. Cardiomegaly is noted. ACT 112: Negative or not required by law. Electronically signed by: Krishan Loja M.D. 09/26/2023 3:05 PM Cardiac Enzymes 09/26/23 09/26/23 09/26/23 Range/Units 14:43 16:28 17:29 AST 21 (13-39) U/L Troponin I High Sens 29.1 H 31.8 H 29.2 H (0-14) pg/ml 09/26/23 Range/Units 20:22 AST (13-39) U/L Troponin I High Sens 27.5 H (0-14) pg/ml CBC 09/26/23 Range/Units 14:43 WBC 16.15 H (4.8-10.8) K/ul RBC 4.42 (4.20-5.40) M/uL Hgb 12.9 (12.0-16.0) g/dl Hct 40.2 (37.0-47.0) % Plt Count 275 (130-400) K/uL Neut # (Auto) 15.06 H (1.40-6.50) K/uL Lymph # (Auto) 0.61 L (1.20-3.40) K/uL [place] # (Auto) 0.34 (0.11-0.59) K/uL Eos # (Auto) 0.00 (0.00-0.50) K/uL Baso # (Auto) 0.02 (0.00-0.20) K/uL Comprehensive Metabolic Panel 09/26/23 Range/Units 14:43 Sodium 140 (136-145) mmol/L Potassium 4.5 (3.5-5.1) mmol/L Chloride 105 (98-107) mmol/L Carbon Dioxide 22 (21-32) mmol/L BUN 39 H (6-23) mg/dl Creatinine 0.90 (0.6-1.2) mg/dl Glucose 327 H* (70-99(Fasting)) mg/dl Calcium 9.7 (8.6-10.3) mg/dl AST 21 (13-39) U/L ALT 31 (7-52) U/L Alkaline Phosphatase 50 (34-104) U/L Total Protein 7.5 (6.0-8.3) gm/dl Albumin 4.0 (3.4-5.0) gm/dl Intake and Output 09/26/23 09/27/23 09/27/23 22:59 06:59 14:59 Output Total 100 / 100 Balance -100 / -100 Output: Urine Amount (Catheter) 100 / 100 purwick 100 / 100 Other: Weight 75.6 kg Weight Measurement Method Built in [facility] Care Time/CCT Total # of Minutes Spent Total Time Spent with Patient: Total time spent is greater than 50% in coordination of care (as documented) at patient's floor/unit and/or counseling patient: I spent 90 minutes overall addressing this case: 15 min in medical data review/discussion with referring pro vider(s) and/or preparation for the visit 20 min in direct interaction with the patient/exam 45 min in Advance Care Planning/Goals of Care discussions as detailed above in note (must be >16min) 10 min in subsequent review and synthesis of assessment and plan 10 min communicating with other providers regarding the patient's case: nursing, primary care, [facility] med Advanced Care Planning 27633 Advanced Care Planning 30 Min 01789 Advanced Care Planning Additional 30 [place] [address] IN/OBS CONSULT LVL 4,60M (25 - SIGNIFICANT, SEPARATELY IDENTIFIABLE ) Patient Type New Medical Decision Making High Complexity Diagnoses Dyspnea and respiratory abnormalities R06.00; R06.89 Weakness generalized R53.1 Advanced care planning/counseling discussion Z71.89 Encounter for hospice care discussion Z Palliative care by specialist Z51.5 Additional Codes Advanced Care Planning - 67613 Advanced Care Planning 30 Min: 63750 Advanced Care Planning 30 Min ([id number]) Advanced Care Planning - 71356 Advanced Care Planning Additional 30 Min: 45130 Advanced Care Planning Additional 30 Min ([id number])
[2023-09-27] MEDS: ATORVASTATIN 10 MG TAB PO SCH (15:29)
[2023-09-27] MEDS: PANTOprazole 40 MG TAB PO SCH (15:30)
[2023-09-27] MEDS: LOSARTAN POTASSIUM 25 MG TAB PO SCH (15:30)
[2023-09-27] MEDS: UMECLIDINIUM/VILANTEROL 62.5/25MCG 7 PUFFS/INHALER INH SCH (15:31)
[2023-09-27] MEDS: FUROSEMIDE 40 MG/4 ML VIAL IV ONE (15:31)
--- NOTE | 2023-09-27 15:42 | Pharmacy Report ---
Pharmacy Glycemic Short Note 2 - Date of Service September 27, 2023 - Glycemic Short BSG Results (Last 24 hours): 09/26/23 09/26/23 09/26/23 14:43 17:21 20:06 Glucose 327 H* POC Glucose 277 H 214 H OUTPATIENT ANTIDIABETIC REGIMEN: * Metformin 1000 mg PO qPM * Jardiance 10 mg PO daily * A1c pending ASSESSMENT: * Nicolasa is a 73 yo T2DM who presented with SOB and exertional chest tightness, found to be in acute on chronic respiratory failure with hypoxia. * She has been started on high dose IV steroids (currently ordered solu medrol 40 mg IV q8h). Majority of BSGs over the past 24 hours have been > 200 mg/dL. Fasting BSG was near goal, 123 mg/dL. * During previous admissions, patient required aggressive short acting insulin and ~10-20 units of basal insulin per day while on prednisone. * Will order a one time dose of Lantus and tighten Novolog CF/CR plus overnight checks with coverage. PLAN FOR INPATIENT GLYCEMIC CONTROL: * Hold outpatient oral diabetes medications * Basal insulin * Lantus 20 units SQ x 1 * Reassess basal dosing 7/20 AM * Bolus insulin * NovoLog per scale ACHS or Q6hrs while NPO * Goal Range: Low 110 mg/dL - High 140 mg/dL * Correction Factor: 20 mg/dL/unit * Nutritional / Prandial insulin per carb ratio of 1 unit per 7 grams CHO consumed
[2023-09-27] MEDS: LANTUS PER UNIT CHARGE SC ONE (15:49)
[2023-09-27] MEDS: methylPREDNISolone 40 MG in SYRINGE 0 ML IV SCH ×2 (15:49→17:42)
[2023-09-27] MEDS: FLUTICASONE FUROATE 200MCG 14 PUFFS/INHALER INH SCH (15:50)
--- NOTE | 2023-09-27 15:59 | Electrocardiogram Report ---
Test Reason : Blood Pressure : / mmHG Vent. Rate : 093 BPM Atrial Rate : 093 BPM P-R Int : 128 ms QRS Dur : 084 ms QT Int : 334 ms P-R-T Axes : 031 001 010 degrees QTc Int : 415 ms Normal sinus rhythm Nonspecific ST and T wave abnormality Abnormal ECG When compared with ECG of 01-JAN-2023 10:08, Non-specific change in ST segment in Lateral leads Confirmed by Omari Beatty ([id number]) on 09/27/2023 3:58:43 PM Referred By: REFERRED SELF Confirmed By:Omari Beatty
[2023-09-27] MEDS: BUDESONIDE 0.5 MG/2 ML VIAL (PULMICORT) INH SCH (19:20)
[2023-09-27] MEDS: FORMOTEROL 20 MCG/2 ML VIAL INH SCH (19:20)
[2023-09-28] MEDS: INSULIN ASPART PER UNIT CHARGE SC SCH (00:39)
[2023-09-28 06:15] LABS: Hematocrit (blood only) 37.6 % (37.0-47.0); Mean Corpuscular Hemoglobin 28.4 pg (25.0-34.0); Mean Corpuscular Hgb Conc 31.9 g/dL (32.0-36.0); Mean Corpuscular Volume 89.1 fL (80.0-100.0); Mean Platelet Volume 11.5 fL (9.4-12.4); Platelet Count 252 K/uL (130-400); RDW Coefficient of Variation 15.6 % (11.5-14.5); RDW Standard Deviation 50.7 fL (36.4-46.3); Red Blood Count 4.22 M/uL (4.20-5.40); White Blood Count 13.93 K/ul (4.8-10.8)
[2023-09-28 06:41] LABS: Basophils # (auto) 0.01 K/uL (0.00-0.20); Basophils % (auto) 0.1 %; Immature Granulocytes # (auto) 0.11 K/uL (0.01-0.20); Immature Granulocytes % (auto) 0.8 %; Lymphocytes # (auto) 0.57 K/uL (1.20-3.40); Lymphocytes % (auto) 4.1 %; Monocytes # (auto) 0.29 K/uL (0.11-0.59); Monocytes % (auto) 2.1 %; Neutrophils # (auto) 12.95 K/uL (1.40-6.50); Neutrophils % (auto) 92.9 %; RBC Morphology Unremarkable
[2023-09-28] MEDS: LANTUS PER UNIT CHARGE SC SCH ×2 (09:35→21:00)
[2023-09-28 09:39] LABS: Albumin Globulin Ratio 1.3 (0.9-2); Albumin Level 4.1 gm/dl (3.4-5.0); BUN Creatinine Ratio 44.8 (10-20); Bilirubin,Total 0.4 mg/dl (0.2-1.0); Calcium 9.7 mg/dl (8.6-10.3); Chol HDL Ratio 3.1 (0-5); Creatinine Clr Calc Pharmacy 39.6 ml/min; Est GFR (African American) 53.7 ml/min; Est GFR (Non-African American) 46.3 ml/min; Globulin 3.1 gm/dl (2.5-4.0); Magnesium 2.1 mg/dl (1.7-2.4); Phosphorus 5.8 mg/dl (2.5-4.9); Potassium 3.9 mmol/L (3.5-5.1); Total Protein 7.2 gm/dl (6.0-8.3)
[2023-09-28] MEDS: FUROSEMIDE INJ 20 MG/2 ML VIAL IV ONE (11:31)
--- NOTE | 2023-09-28 12:14 | Pulmonology Progress Note ---
Date of Service September 28, 2023 Assessment & Plan (1) Acute and chronic respiratory failure with hypoxia: Plan: Hypoxemia substantially worsened likely due to increasingly worse pulmonary hypertension. Given 40 mg of IV Lasix x 1 yesterday and an additional 20 mg IV Lasix today. Minimal improvement in oxygenation. BNP mildly elevated. (2) Pulmonary fibrosis: Plan: Unclear if she has an acute flair. RVP and procal negative on admission. No signs of infectious etiology. Reasonable to give a short trial of increased systemic corticosteroid therapy. (3) Pulmonary hypertension: Plan: No PE seen on chest CTA. Suspect worsening PH is the main driving force for patient's worsening hypoxemia. Prognosis is quite poor. Appreciate palliative care input. Likely discharge home with hospice Saturday. Admission and Anticipated Discharge Date Admission Date: September 26, 2023 Subjective Patient very tearful today. Requiring continued high flow oxygen. Shortness of breath with minimal activity. Denies chest pain. Anticipating home with hospice Saturday per patient. Review of Systems Review of Systems: All systems reviewed & are unremarkable except as noted in HPI & below Physical Exam Constitutional: WD/WN, vitals as above Neck: trachea midline, no thyromegaly Respiratory: no respiratory distress, no labored breathing, no cough and not tachypneic Auscultation: + crackles Cardiovascular: RRR, no murmur, no edema Gastrointestinal (Abdomen): normal bowel sounds, soft, nontender, no hepatospl enomegaly Musculoskeletal: Extremities: extremities normal to inspection Skin: no rashes, warm and dry Neurologic: Nonfocal exam Lymphatic: no cervical lymphadenopathy Results & Data Results & Data Vital Signs (Past 12 Hours) Vital Signs Temp Pulse Pulse Resp BP Pulse Ox O2 Del Method 09/28/23 11:35 36.6 C 69 18 151/93 H 92 High Flow Nasal Cannula 09/28/23 07:35 High Flow Nasal Cannula 09/28/23 07:29 36.5 C 56 L 18 150/89 H 99 High Flow Nasal Cannula 09/28/23 07:14 62 18 96 High Flow Nasal Cannula 09/28/23 04:04 53 L 21 98 High Flow Nasal Cannula 09/28/23 02:59 36.4 C L 56 L 18 94 High Flow Nasal Cannula 09/28/23 01:56 57 L 21 98 High Flow Nasal Cannula O2 Flow Rate FiO2 09/28/23 11:35 09/28/23 07:35 30 60 09/28/23 07:29 09/28/23 07:14 40 60 09/28/23 04:04 40 60 09/28/23 02:59 09/28/23 01:56 40 60 PG Care Time/CCT Total # of Minutes Spent Total Time Spent with Patient: Total time spent is greater than 50% in coordination of care (as documented) at patient's floor/unit and/or counseling patient: Coding Level of Care Code 46726 SUB INP/OBS CARE 2/35MIN Diagnoses Acute and chronic respiratory failure with hypoxia J96.21 Pulmonary fibrosis J84.10 Pulmonary hypertension I27.20
--- NOTE | 2023-09-28 14:26 | Hospitalist Progress Note ---
Date of Service September 28, 2023 Assessment & Plan (1) Acute on chronic respiratory failure with hypoxia: (2) Interstitial lung disease: (3) Pulmonary fibrosis: (4) Elevated troponin: (5) Pulmonary hypertension: Plan 73 year old female with history of DM type II, ILD/pulmonary fibrosis with chronic hypoxic respiratory failure on 14L/min, severe pulmonary HTN, etc who presented to the ED for evaluation secondary to SOB and exertional chest tightness and was found to have acute on chronic respiratory failure with hypoxia. She was tachycardic and tachypneic on presentation, with oxygen saturation of 68% on arrival which improved to 94% w/ 15L via non-rebreather and subsequently required HFNC. CTA chest 09/25 1. There is no evidence of pulmonary embolus in the main, lobar, or segmental pulmonary arteries. 2. Cardiomegaly with evidence of pulmonary artery hypertension. 3. Again seen are findings of chronic interstitial/fibrotic lung disease. 4. No superimposed air space consolidation or pleural effusion is identified. 5. Mildly enlarged mediastinal and hilar lymph nodes are similar to previous and likely related to chronic lung disease. 6. Cholelithiasis. Echo 09/25- LVEF >70% with no RWMA, PASP 66, mildly reduced RVSF Acute on Chronic Respiratory Failure with Hypoxia in setting of ILD/pulmonary fibrosis and severe pulmonary HTN- follows w/ [facility] [Dr. Finch]. Uses 14 L oxygen at baseline, now requiring HFNC. CTA chest and echo reviewed. RVP negative. BNP in 200s. Afebrile. - Seen by pulmonary and palliative and recommendations noted. - Trial of iv steroids, nebs and iv lasix to see how she does. Continue doxycycline, pirfenidone, IS, Flutter valve. - Continue HFNC- wean down as tolerated - [facility] hospice is going to meet her here on Saturday afternoon Elevated Troponin- trop trend mild and flat. Demand ischemia from above HTN- continue [employer] losartan. BP stable DM Type II with hyperglycemia worsened due to steroids- Glycemic pharmacist managing insulin. A1c 7.8 DVT ppx- sc lovenox Dispo- TBD. Still on HFNC. Hospice evaluation on Saturday DNR/DNI Time spent- approx 50 mins Admission and Anticipated Discharge Date Admission Date: September 26, 2023 Subjective Patient was seen and examined at bedside. Slightly better today. Still gets dyspneic and oxygen desaturation with conversation. Remains on high flow. No new issues. States she was supposed to meet [facility] hospice but that has never happened and they are coming to visit her here on Saturday at 1:30 pm in presence of her family to discuss further. Review of Systems Review of Systems: All systems reviewed & are unremarkable except as noted in Subjective Physical Exam Physical Exam: General: Sitting comfortably in bed, not in acute distress, on HFNC HEENT: EOMI, MELVIN, MMM Chest: Bilateral crackles CVS: Regular rate and rhythm, normal heart sounds Abdomen: Soft, non tender, not distended, normal bowel sounds Neuro: Awake, alert, oriented, conversing well, non focal Extremities: No edema Results & Data Results & Data Vital Signs (Past 12 Hours) Vital Signs Temp Pulse Pulse Resp BP Pulse Ox O2 Del Method 09/28/23 14:13 66 18 98 High Flow Nasal Cannula 09/28/23 11:35 36.6 C 69 18 151/93 H 92 High Flow Nasal Cannula 09/28/23 07:35 High Flow Nasal Cannula 09/28/23 07:29 36.5 C 56 L 18 150/89 H 99 High Flow Nasal Cannula 09/28/23 07:14 62 18 96 High Flow Nasal Cannula 09/28/23 04:04 53 L 21 98 High Flow Nasal Cannula 09/28/23 02:59 36.4 C L 56 L 18 94 High Flow Nasal Cannula O2 Flow Rate FiO2 09/28/23 14:13 40 55 09/28/23 11:35 09/28/23 07:35 30 60 09/28/23 07:29 09/28/23 07:14 40 60 09/28/23 04:04 40 60 09/28/23 02:59 Laboratory Results Short CBC 09/28/23 Range/Units 05:26 WBC 13.93 H (4.8-10.8) K/ul Hgb 12.0 (12.0-16.0) g/dl Hct 37.6 (37.0-47.0) % Plt Count 252 (130-400) K/uL BMP 09/28/23 05:26 Sodium 138 Potassium 3.9 Chloride 101 Carbon Dioxide 21 BUN 52 H Creatinine 1.16 Glucose 192 H Calcium 9.7 Liver Function 09/28/23 Range/Units 05:26 Total Bilirubin 0.4 (0.2-1.0) mg/dl AST 16 (13-39) U/L ALT 21 (7-52) U/L Alkaline Phosphatase 42 (34-104) U/L Albumin 4.1 (3.4-5.0) gm/dl
--- NOTE | 2023-09-28 14:31 | Pharmacy Report ---
Pharmacy Glycemic Short Note 2 - Date of Service September 28, 2023 - Glycemic Short BSG Results (Last 24 hours): 09/27/23 09/27/23 09/27/23 07:05 11:09 15:58 Glucose POC Glucose 123 H 214 H 276 H 09/27/23 09/28/23 09/28/23 20:06 00:32 04:28 Glucose POC Glucose 186 H 215 H 199 H 09/28/23 09/28/23 09/28/23 05:26 06:57 11:25 Glucose 192 H POC Glucose 166 H 371 H* 09/28/23 11:27 Glucose POC Glucose 224 H OUTPATIENT ANTIDIABETIC REGIMEN: * Metformin 1000 mg PO qPM * Jardiance 10 mg PO daily * A1c pending ASSESSMENT: 09/27: * Patient received 20 units basal and 25 units bolus insulins yesterday. BSGs were [phone] mg/dl. * Fasting BSG today AM was 166 mg/dl. Added scaled dose of basal insulin for HS tonight. * Solu Medrol 40 mg IV q8h continues. Novolog parameters were tightened further today morning. 09/27/23: * Nicolasa is a 73 yo T2DM who presented with SOB and exertional chest tightness, found to be in acute on chronic respiratory failure with hypoxia. * She has been started on high dose IV steroids (currently ordered solu medrol 40 mg IV q8h). Majority of BSGs over the past 24 hours have been > 200 mg/dL. Fasting BSG was near goal, 123 mg/dL. * During previous admissions, patient required aggressive short acting insulin and ~10-20 units of basal insulin per day while on prednisone. * Will order a one time dose of Lantus and tighten Novolog CF/CR plus overnight checks with coverage. PLAN FOR INPATIENT GLYCEMIC CONTROL: * Hold outpatient oral diabetes medications * Basal insulin * Lantus 20 units SQ QAM * Lantus 0/5/10 units scale based on BSG at HS * Bolus insulin * NovoLog per scale ACHS or Q6hrs while NPO * Goal Range: Low 110 mg/dL - High 140 mg/dL * Correction Factor: 15 mg/dL/unit * Nutritional / Prandial insulin per carb ratio of 1 unit per 5 grams CHO consumed
[2023-09-29 07:04] LABS: Hematocrit (blood only) 38.2 % (37.0-47.0); Hemoglobin 12.4 g/dl (12.0-16.0); Mean Corpuscular Hgb Conc 32.5 g/dL (32.0-36.0); Mean Corpuscular Volume 89.5 fL (80.0-100.0); Mean Platelet Volume 11.6 fL (9.4-12.4); Platelet Count 266 K/uL (130-400); RDW Coefficient of Variation 15.6 % (11.5-14.5); Red Blood Count 4.27 M/uL (4.20-5.40); White Blood Count 18.88 K/ul (4.8-10.8)
[2023-09-29 07:05] LABS: BUN Creatinine Ratio 53.6 (10-20); Calcium 9.9 mg/dl (8.6-10.3); Creatinine Clr Calc Pharmacy 47.6 ml/min; Est GFR (African American) 66.7 ml/min; Est GFR (Non-African American) 57.5 ml/min; Magnesium 2.2 mg/dl (1.7-2.4); Potassium 4.2 mmol/L (3.5-5.1)
--- NOTE | 2023-09-29 08:13 | Pulmonology Progress Note ---
Date of Service September 29, 2023 Assessment & Plan (1) Acute and chronic respiratory failure with hypoxia: (2) Pulmonary fibrosis: (3) Pulmonary hypertension: Plan CT chest 09/26/2023 personally reviewed: Increased reticular markings appreciated bilaterally upper and lower lobes Traction bronchiectasis appreciated bilaterally Minimal right hilar lymphadenopathy No acute change compared to CT chest 12/31 This includes the right hilar adenopathy --Acute on chronic hypoxic respiratory failure Likely secondary to underlying IPF Uses 14 L oxygen on exertion and 10 L at rest Has been on 20 mg of prednisone since at least May 2023 Was also taking azithromycin [id number]-Fnzqpu Was taking pirfenidone 801 mg 3 times daily -- Pulmonary hypertension Likely type III Continue with diuresis as tolerated Plan: Continue with Solu-Medrol 40 mg every 8. Continue with pantoprazole Given that the patient has been on prednisone> 20 mg for more than a month, resume Bactrim Qyuxmy-Sxsiytzul-Wdbfwt Continue with diuretics Complete the course of doxycycline for total of 7 days and then stop. Overall prognosis is guarded given the gradual worsening of her symptoms for approximately a year. Patient is following up with hospice tomorrow to decide goals of care. Case was discussed with RN as well as pharmacist Please note the above document was generated using voice recognition software. It may contain grammatical, syntax or spelling errors.Any formal questions or concerns about the content, text or information contained within the body of this dictation should be directly addressed to the provider for clarification. Admission and Anticipated Discharge Date Admission Date: September 26, 2023 Subjective Patient seen and examined at bedside. No acute distress, notable symptoms overnight She was saturating 75-77% on 40 L, 60% FiO2 while eating. I increased the FiO2 to 80% and her saturation did increase to 91-92% Overall she denied any significant change when it comes to her breathing. Does get short of breath on minimal exertion. No chest pain No headache, no nausea vomiting No fever or chills Review of Systems 2 Review of Systems: All systems reviewed & are unremarkable except as noted in Subjective Physical Exam 2 Physical Exam: Constitutional: In mild respiratory distress HEENT: EOMI, PERRLA Respiratory system: Decreased air entry bilaterally, no wheeze, no rhonchi, positive Velcro-like crackles appreciated bilaterally anterior and posteriorly especially on the posterior side CVS: S1-S2 positive, no murmurs or gallops, accentuated P2 Abdomen: Soft, nontender, nondistended, positive bowel sounds x4 Extremities: +2 pulses bilaterally radialis/ dorsalis pedis, no cyanosis, no edema Neuro: Awake alert oriented x3 Psych: Normal mood and affect G/U: Pure wick Skin: no rashes, warm and dry Lymphatic: no cervical or axillary lymphadenopathy Results & Data Results & Data Vital Signs (Past 12 Hours) Vital Signs Temp Pulse Pulse Pulse Resp BP Pulse Ox 09/29/23 07:39 36.5 C 57 L 18 140/83 89 L 09/29/23 07:18 53 L 18 99 09/29/23 03:43 54 L 20 96 09/29/23 03:30 36.3 C L 50 L 19 138/79 96 09/29/23 00:19 51 L 18 99 09/28/23 23:25 36.4 C L 63 23 115/72 93 09/28/23 23:02 74 98 09/28/23 22:50 09/28/23 21:54 55 L O2 Del Method O2 Flow Rate FiO2 09/29/23 07:39 High Flow Nasal Cannula 09/29/23 07:18 High Flow Nasal Cannula 40 60 09/29/23 03:43 High Flow Nasal Cannula 40 60 09/29/23 03:30 High Flow Nasal Cannula 09/29/23 00:19 High Flow Nasal Cannula 40 60 09/28/23 23:25 High Flow Nasal Cannula 09/28/23 23:02 High Flow Nasal Cannula 40 60 09/28/23 22:50 High Flow Nasal Cannula 09/28/23 21:54 Laboratory Results 09/29/23 05:23 09/29/23 05:23 PG Care Time/CCT Total # of Minutes Spent Total Time Spent with Patient: Total time spent is greater than 50% in coordination of care (as documented) at patient's floor/unit and/or counseling patient: Coding Level of Care Code 26293 SUB INP/OBS CARE 3/50MIN Diagnoses Acute and chronic respiratory failure with hypoxia J96.21 Pulmonary fibrosis J84.10 Pulmonary hypertension I27.20
--- NOTE | 2023-09-29 14:13 | Hospitalist Progress Note ---
Date of Service September 29, 2023 Assessment & Plan (1) Acute on chronic respiratory failure with hypoxia: (2) Interstitial lung disease: (3) Pulmonary fibrosis: (4) Elevated troponin: (5) Pulmonary hypertension: Plan 73 year old female with history of DM type II, ILD/pulmonary fibrosis with chronic hypoxic respiratory failure on 14L/min, severe pulmonary HTN, etc who presented to the ED for evaluation secondary to SOB and exertional chest tightness and was found to have acute on chronic respiratory failure with hypoxia. She was tachycardic and tachypneic on presentation, with oxygen saturation of 68% on arrival which improved to 94% w/ 15L via non-rebreather and subsequently required HFNC. CTA chest 09/25 1. There is no evidence of pulmonary embolus in the main, lobar, or segmental pulmonary arteries. 2. Cardiomegaly with evidence of pulmonary artery hypertension. 3. Again seen are findings of chronic interstitial/fibrotic lung disease. 4. No superimposed air space consolidation or pleural effusion is identified. 5. Mildly enlarged mediastinal and hilar lymph nodes are similar to previous and likely related to chronic lung disease. 6. Cholelithiasis. Echo 09/25- LVEF >70% with no RWMA, PASP 66, mildly reduced RVSF Acute on Chronic Respiratory Failure with Hypoxia in setting of ILD/pulmonary fibrosis and severe pulmonary HTN- follows w/ [facility] [Dr. Finch]. Uses 14 L oxygen at baseline, now requiring HFNC. CTA chest and echo reviewed. RVP negative. BNP in 200s. Afebrile. - Seen by pulmonary and palliative and recommendations noted. - Trial of iv steroids, nebs and iv lasix to see how she does but without any significant improvement so far. Continue doxycycline, pirfenidone, IS, Flutter valve. Started on bactrim MWF per pulm given her prolonged steroid course. - Continue HFNC- wean down as tolerated - [facility] is going to meet her here on Saturday afternoon Elevated Troponin- trop trend mild and flat. Demand ischemia from above HTN- continue [employer] losartan. BP stable DM Type II with hyperglycemia worsened due to steroids- Glycemic pharmacist managing insulin. A1c 7.8 Leucocytosis- likely due to high dose steroids. Monitor. On doxy and bactrim. DVT ppx- sc lovenox Dispo- TBD. Still on HFNC. Hospice evaluation on Saturday DNR/DNI Time spent- approx 35 mins Admission and Anticipated Discharge Date Admission Date: September 26, 2023 Subjective Patient was seen and examined at bedside. Remains the same. No improvement despite the trial of high dose steroids and diuretics. Still with conversational dyspnea and desaturation while on high flow. Started on bactrim by pulmonology given her prolonged prednisone use. She is meeting with hospice and palliative tomorrow. She states she had a good BM today. Review of Systems Review of Systems: All systems reviewed & are unremarkable except as noted in Subjective Physical Exam Physical Exam: General: Sitting comfortably in bed, not in acute distress, on HFNC HEENT: EOMI, MELVIN, MMM Chest: Bilateral crackles CVS: Regular rate and rhythm, normal heart sounds Abdomen: Soft, non tender, not distended, normal bowel sounds Neuro: Awake, alert, oriented, conversing well, non focal Extremities: No edema Results & Data Results & Data Vital Signs (Past 12 Hours) Vital Signs Temp Pulse Pulse Resp BP Pulse Ox O2 Del Method 09/29/23 11:11 36.6 C 81 18 145/85 H 91 High Flow Nasal Cannula 09/29/23 08:00 High Flow Nasal Cannula 09/29/23 07:39 36.5 C 57 L 18 140/83 89 L High Flow Nasal Cannula 09/29/23 07:18 53 L 18 99 High Flow Nasal Cannula 09/29/23 03:43 54 L 20 96 High Flow Nasal Cannula 09/29/23 03:30 36.3 C L 50 L 19 138/79 96 High Flow Nasal Cannula O2 Flow Rate FiO2 09/29/23 11:11 09/29/23 08:00 40 60 09/29/23 07:39 09/29/23 07:18 40 60 09/29/23 03:43 40 60 09/29/23 03:30 Laboratory Results Short CBC 09/29/23 Range/Units 05:23 WBC 18.88 H (4.8-10.8) K/ul Hgb 12.4 (12.0-16.0) g/dl Hct 38.2 (37.0-47.0) % Plt Count 266 (130-400) K/uL BMP 09/29/23 05:23 Sodium 136 Potassium 4.2 Chloride 101 Carbon Dioxide 26 BUN 52 H Creatinine 0.97 Glucose 176 H Calcium 9.9
[2023-09-29] MEDS: LANTUS PER UNIT CHARGE SC SCH (21:50)
[2023-09-30 07:05] LABS: Hematocrit (blood only) 37.2 % (37.0-47.0); Hemoglobin 12.2 g/dl (12.0-16.0); Mean Corpuscular Hemoglobin 29.3 pg (25.0-34.0); Mean Corpuscular Hgb Conc 32.8 g/dL (32.0-36.0); Mean Corpuscular Volume 89.4 fL (80.0-100.0); Mean Platelet Volume 11.6 fL (9.4-12.4); Platelet Count 256 K/uL (130-400); RDW Coefficient of Variation 15.7 % (11.5-14.5); RDW Standard Deviation 51.2 fL (36.4-46.3); Red Blood Count 4.16 M/uL (4.20-5.40); White Blood Count 17.28 K/ul (4.8-10.8)
--- NOTE | 2023-09-30 07:13 | Pulmonology Progress Note ---
Date of Service September 30, 2023 Assessment & Plan (1) Acute and chronic respiratory failure with hypoxia: (2) Pulmonary fibrosis: (3) Pulmonary hypertension: Plan CT chest 09/26/2023 personally reviewed: Increased reticular markings appreciated bilaterally upper and lower lobes Traction bronchiectasis appreciated bilaterally Minimal right hilar lymphadenopathy No acute change compared to CT chest 12/31 This includes the right hilar adenopathy --Acute on chronic hypoxic respiratory failure Likely secondary to underlying IPF Uses 14 L oxygen on exertion and 10 L at rest Has been on 20 mg of prednisone since at least May 2023 Was also taking azithromycin Zvpjoq-[id number]-Dvbedp Was taking pirfenidone 801 mg 3 times daily -- Pulmonary hypertension Likely type III Continue with diuresis as tolerated Plan: Decrease Solu-Medrol to 40 mg every 12, continue with pantoprazole Given that the patient has been on prednisone> 20 mg for more than a month, continue with Bactrim Cskdos-Mohahahup-Qjrluq Continue with diuretics Complete the course of doxycycline for total of 7 days and then stop. Overall prognosis is guarded given the gradual worsening of her symptoms for approximately a year. Patient is following up with hospice today to decide goals of care. Case was discussed with RN as well as pharmacist Please note the above document was generated using voice recognition software. It may contain grammatical, syntax or spelling errors.Any formal questions or concerns about the content, text or information contained within the body of this dictation should be directly addressed to the provider for clarification. Admission and Anticipated Discharge Date Admission Date: September 26, 2023 Subjective Patient seen and examined at bedside. No acute distress, no [employer] overnight She was saturating 91-92% on 30 L, 50% high flow Denied any significant change compared to yesterday when it comes to her breathing No chest pain Appetite is fair Denied any headache No nausea vomiting Review of Systems 2 Review of Systems: All systems reviewed & are unremarkable except as noted in Subjective Physical Exam 2 Physical Exam: Constitutional: In mild respiratory distress HEENT: EOMI, PERRLA Respiratory system: Decreased air entry bilaterally, no wheeze, no rhonchi, positive Velcro-like crackles appreciated bilaterally anterior and posteriorly especially on the posterior side, more on the left CVS: S1-S2 positive, no murmurs or gallops, accentuated P2 Abdomen: Soft, nontender, nondistended, positive bowel sounds x4 Extremities: +2 pulses bilaterally radialis/ dorsalis pedis, no cyanosis, no edema Neuro: Awake alert oriented x3 Psych: Normal mood and affect G/U: Pure wick Skin: no rashes, warm and dry Lymphatic: no cervical or axillary lymphadenopathy Results & Data Results & Data Vital Signs (Past 12 Hours) Vital Signs Temp Pulse Pulse Resp BP Pulse Ox O2 Del Method 09/30/23 07:06 36.4 C L 65 24 149/84 H 90 High Flow Nasal Cannula 09/30/23 03:49 56 L 16 93 High Flow Nasal Cannula 09/30/23 03:11 36.5 C 56 L 22 137/76 96 High Flow Nasal Cannula 09/30/23 00:14 61 20 95 High Flow Nasal Cannula 09/29/23 23:05 36.6 C 66 21 129/81 94 High Flow Nasal Cannula 09/29/23 22:58 68 91 High Flow Nasal Cannula 09/29/23 22:00 High Flow Nasal Cannula 09/29/23 21:55 65 09/29/23 19:35 36.6 C 69 23 133/81 94 High Flow Nasal Cannula O2 Flow Rate FiO2 09/30/23 07:06 09/30/23 03:49 35 50 09/30/23 03:11 09/30/23 00:14 35 50 09/29/23 23:05 09/29/23 22:58 35 55 09/29/23 22:00 40 60 09/29/23 21:55 09/29/23 19:35 Laboratory Results 09/30/23 06:07 PG Care Time/CCT Total # of Minutes Spent Total Time Spent with Patient: Total time spent is greater than 50% in coordination of care (as documented) at patient's floor/unit and/or counseling patient: Coding Level of Care Code 18888 SUB INP/OBS CARE 2/35MIN Diagnoses Acute and chronic respiratory failure with hypoxia J96.21 Pulmonary fibrosis J84.10 Pulmonary hypertension I27.20
[2023-09-30 07:34] LABS: Anion Gap 7 (3-11); BUN Creatinine Ratio 43.8 (10-20); Blood Urea Nitrogen 46 mg/dl (6-23); Calcium 9.8 mg/dl (8.6-10.3); Carbon Dioxide 26 mmol/L (21-32); Chloride 102 mmol/L (98-107); Est GFR (African American) 60.6 ml/min; Est GFR (Non-African American) 52.3 ml/min; Glucose 171 mg/dl (70-99(Fasting)); Magnesium 2.2 mg/dl (1.7-2.4); Sodium 135 mmol/L (136-145)
[2023-09-30 07:38] LABS: Estimated Average Glucose 183 mg/dl
[2023-09-30] MEDS: LANTUS PER UNIT CHARGE SC SCH ×2 (09:22→20:52)
[2023-09-30] MEDS: SULFAMETHOXAZOLE/TRIMETHOPRIM DS 800/160MG TAB PO SCH (09:24)
--- NOTE | 2023-09-30 11:57 | Electrocardiogram Report ---
Test Reason : Blood Pressure : / mmHG Vent. Rate : 062 BPM Atrial Rate : 062 BPM P-R Int : 134 ms QRS Dur : 096 ms QT Int : 432 ms P-R-T Axes : 039 001 018 degrees QTc Int : 438 ms Normal sinus rhythm with sinus arrhythmia Possible Left atrial enlargement Nonspecific ST and T wave abnormality Abnormal ECG When compared with ECG of 26-SEP-2023 14:47, Vent. rate has decreased BY 31 BPM Non-specific change in ST segment in Lateral leads Nonspecific T wave abnormality, worse in Lateral leads Confirmed by Sharif Ayers ([id number]) on 09/30/2023 11:57:31 AM Referred By: REFERRED SELF Confirmed By:Sharif Ayers
--- NOTE | 2023-09-30 12:21 | Hospitalist Progress Note ---
Date of Service September 30, 2023 Assessment & Plan (1) Acute on chronic respiratory failure with hypoxia: (2) Interstitial lung disease: (3) Pulmonary fibrosis: (4) Elevated troponin: (5) Pulmonary hypertension: Plan 73 year old female with history of DM type II, ILD/pulmonary fibrosis with chronic hypoxic respiratory failure on 14L/min, severe pulmonary HTN, etc who presented to the ED for evaluation secondary to SOB and exertional chest tightness and was found to have acute on chronic respiratory failure with hypoxia. She was tachycardic and tachypneic on presentation, with oxygen saturation of 68% on arrival which improved to 94% w/ 15L via non-rebreather and subsequently required HFNC. CTA chest 09/25 1. There is no evidence of pulmonary embolus in the main, lobar, or segmental pulmonary arteries. 2. Cardiomegaly with evidence of pulmonary artery hypertension. 3. Again seen are findings of chronic interstitial/fibrotic lung disease. 4. No superimposed air space consolidation or pleural effusion is identified. 5. Mildly enlarged mediastinal and hilar lymph nodes are similar to previous and likely related to chronic lung disease. 6. Cholelithiasis. Echo 09/25- LVEF >70% with no RWMA, PASP 66, mildly reduced RVSF Acute on Chronic Respiratory Failure with Hypoxia in setting of ILD/pulmonary fibrosis and severe pulmonary HTN- follows w/ [facility] [Dr. Finch]. Uses 14 L oxygen at baseline, now requiring HFNC. CTA chest and echo reviewed. RVP negative. BNP in 200s. Afebrile. - Seen by pulmonary and palliative and recommendations noted. - Trial of iv steroids, nebs and iv lasix to see how she does but without any significant improvement so far. Continue doxycycline, pirfenidone, IS, Flutter valve. Started on bactrim MWF per pulm given her prolonged steroid course. - Continue HFNC- wean down as tolerated - [facility] is going to meet her here on Saturday afternoon Elevated Troponin- trop trend mild and flat. Demand ischemia from above HTN- continue [employer] losartan. BP stable DM Type II with hyperglycemia worsened due to steroids- Glycemic pharmacist managing insulin. A1c 7.8 Leucocytosis- likely due to high dose steroids. Monitor. On doxy and bactrim. DVT ppx- sc lovenox Dispo- TBD. Still on HFNC. Hospice evaluation later today DNR/DNI Time spent- approx 35 mins Admission and Anticipated Discharge Date Admission Date: September 26, 2023 Subjective patient was seen and examined at bedside. she feels slightly better. she is awaiting the meeting with palliative and hospice agency later today. No fever, chills, chest pain, nausea or vomiting. Review of Systems Review of Systems: All systems reviewed & are unremarkable except as noted in Subjective Physical Exam Physical Exam: General: Sitting comfortably in bed, not in acute distress, on HFNC HEENT: EOMI, MELVIN, MMM Chest: Bilateral crackles CVS: Regular rate and rhythm, normal heart sounds Abdomen: Soft, non tender, not distended, normal bowel sounds Neuro: Awake, alert, oriented, conversing well, non focal Extremities: No edema Results & Data Results & Data Vital Signs (Past 12 Hours) Vital Signs Temp Pulse Pulse Pulse Resp BP Pulse Ox 09/30/23 11:03 36.4 C L 74 20 142/87 H 92 09/30/23 10:54 61 18 97 09/30/23 08:00 09/30/23 07:15 61 18 89 L 09/30/23 07:06 36.4 C L 65 24 149/84 H 90 09/30/23 07:00 66 09/30/23 03:49 56 L 16 93 09/30/23 03:11 36.5 C 56 L 22 137/76 96 O2 Del Method O2 Flow Rate FiO2 09/30/23 11:03 High Flow Nasal Cannula 09/30/23 10:54 High Flow Nasal Cannula 35 60 09/30/23 08:00 High Flow Nasal Cannula 35 50 09/30/23 07:15 High Flow Nasal Cannula 35 50 09/30/23 07:06 High Flow Nasal Cannula 09/30/23 07:00 09/30/23 03:49 High Flow Nasal Cannula 35 50 09/30/23 03:11 High Flow Nasal Cannula Laboratory Results Short CBC 09/30/23 Range/Units 06:07 WBC 17.28 H (4.8-10.8) K/ul Hgb 12.2 (12.0-16.0) g/dl Hct 37.2 (37.0-47.0) % Plt Count 256 (130-400) K/uL BMP 07/22/24 07/22/24 06:07 07:41 Sodium 135 L Potassium TNP 4.2 Chloride 102 Carbon Dioxide 26 BUN 46 H Creatinine 1.05 Glucose 171 H Calcium 9.8
--- NOTE | 2023-09-30 13:10 | Pharmacy Report ---
Pharmacy Glycemic Short Note 2 - Date of Service September 30, 2023 - Glycemic Short BSG Results (Last 24 hours): 09/29/23 09/29/23 09/30/23 16:13 20:13 06:07 Glucose 171 H POC Glucose 118 H 193 H 09/30/23 09/30/23 07:06 11:22 Glucose POC Glucose 168 H 283 H OUTPATIENT ANTIDIABETIC REGIMEN: * Metformin 1000 mg PO qPM * Jardiance 10 mg PO daily * HbA1c: 8% (09/29/23) ASSESSMENT: 09/30/23: * Blood sugars remain intermittently elevated w/ persistently elevated fasting blood sugar (168 mg/dL today) * Will allow for increased basal dose today via HS scale * Will tighten carb ratio today * Continues on methylprednisolone 40 mg IV q8h 09/27: * Patient received 20 units basal and 25 units bolus insulins yesterday. BSGs were [id number] mg/dl. * Fasting BSG today AM was 166 mg/dl. Added scaled dose of basal insulin for HS tonight. * Solu Medrol 40 mg IV q8h continues. Novolog parameters were tightened further today morning. 09/27/23: * Nicolasa is a 73 yo T2DM who presented with SOB and exertional chest tightness, found to be in acute on chronic respiratory failure with hypoxia. * She has been started on high dose IV steroids (currently ordered solu medrol 40 mg IV q8h). Majority of BSGs over the past 24 hours have been > 200 mg/dL. Fasting BSG was near goal, 123 mg/dL. * During previous admissions, patient required aggressive short acting insulin and ~10-20 units of basal insulin per day while on prednisone. * Will order a one time dose of Lantus and tighten Novolog CF/CR plus overnight checks with coverage. PLAN FOR INPATIENT GLYCEMIC CONTROL: * Hold outpatient oral diabetes medications * Basal insulin * Lantus 30 units SQ QAM * Lantus 0/5/10 units SC HS (see EHR for details) * Bolus insulin * NovoLog per scale ACHS or Q6hrs while NPO * Goal Range: Low 110 mg/dL - High 140 mg/dL * Correction Factor: 15 mg/dL/unit * Nutritional / Prandial insulin per carb ratio of 1 unit per 4 grams CHO consumed
[2023-10-01 07:03] LABS: BUN Creatinine Ratio 48.5 (10-20); Calcium 9.6 mg/dl (8.6-10.3); Creatinine Clr Calc Pharmacy 47.7 ml/min; Est GFR (African American) 66.7 ml/min; Est GFR (Non-African American) 57.5 ml/min; Potassium 4.5 mmol/L (3.5-5.1)
--- NOTE | 2023-10-01 07:44 | Pulmonology Progress Note ---
Date of Service October 01, 2023 Assessment & Plan (1) Acute and chronic respiratory failure with hypoxia: (2) Pulmonary fibrosis: (3) Pulmonary hypertension: Plan CT chest 09/26/2023 personally reviewed: Increased reticular markings appreciated bilaterally upper and lower lobes Traction bronchiectasis appreciated bilaterally Minimal right hilar lymphadenopathy No acute change compared to CT chest 12/31 This includes the right hilar adenopathy --Acute on chronic hypoxic respiratory failure Likely secondary to underlying IPF Uses 14 L oxygen on exertion and 10 L at rest Has been on 20 mg of prednisone since at least May 2023 Was also taking azithromycin Nlvirp-Cxoomupew-Acuvxe Was taking pirfenidone 801 mg 3 times daily -- Pulmonary hypertension Likely type III Continue with diuresis as tolerated Plan: -2.7 L since coming to the hospital Decrease Solu-Medrol to 40 mg every 12, continue with pantoprazole Given that the patient has been on prednisone> 20 mg for more than a month, continue with Bactrim Fwtklc-Spapukycs-Gmrxak Continue with diuretics Complete the course of doxycycline for total of 7 days and then stop. Overall prognosis is guarded given the gradual worsening of her symptoms for approximately a year. Case was discussed with RN Please note the above document was generated using voice recognition software. It may contain grammatical, syntax or spelling errors.Any formal questions or concerns about the content, text or information contained within the body of this dictation should be directly addressed to the provider for clarification. Admission and Anticipated Discharge Date Admission Date: September 26, 2023 Subjective Patient seen and examined at bedside. No acute distress, no adverse events overnight. She was saturating 92-93% on 35 L, 55% FiO2. She was a little emotional today. Emotional support was given to the patient. Overall she says she is feeling the same. Appetite is fair. No nausea or vomiting No headache, no blurry vision Occasional cough with clear phlegm Review of Systems 2 Review of Systems: All systems reviewed & are unremarkable except as noted in Subjective Physical Exam 2 Physical Exam: Constitutional: In mild respiratory distress HEENT: EOMI, PERRLA Respiratory system: Decreased air entry bilaterally, no wheeze, no rhonchi, positive Velcro-like crackles appreciated bilaterally anterior and posteriorly especially on the posterior side, more on the left CVS: S1-S2 positive, no murmurs or gallops, accentuated P2 Abdomen: Soft, nontender, nondistended, positive bowel sounds x4 Extremities: +2 pulses bilaterally radialis/ dorsalis pedis, no cyanosis, no edema Neuro: Awake alert oriented x3 Psych: Normal mood and affect G/U: Pure wick Skin: no rashes, warm and dry Lymphatic: no cervical or axillary lymphadenopathy Results & Data Results & Data Vital Signs (Past 12 Hours) Vital Signs Temp Pulse Pulse Pulse Resp BP Pulse Ox 10/01/23 07:17 61 18 93 10/01/23 02:39 36.7 C 71 19 147/82 H 90 10/01/23 02:21 10/01/23 02:18 62 10/01/23 02:16 56 L 18 99 09/30/23 23:51 58 L 15 93 09/30/23 23:21 36.7 C 63 17 133/82 94 09/30/23 22:38 65 18 98 O2 Del Method O2 Flow Rate FiO2 10/01/23 07:17 High Flow Nasal Cannula 35 55 10/01/23 02:39 High Flow Nasal Cannula 10/01/23 02:21 High Flow Nasal Cannula 35 10/01/23 02:18 10/01/23 02:16 High Flow Nasal Cannula 35 65 09/30/23 23:51 High Flow Nasal Cannula 35 60 09/30/23 23:21 High Flow Nasal Cannula 09/30/23 22:38 High Flow Nasal Cannula 35 60 Laboratory Results 09/30/23 06:07 10/01/23 06:23 PG Care Time/CCT Total # of Minutes Spent Total Time Spent with Patient: Total time spent is greater than 50% in coordination of care (as documented) at patient's floor/unit and/or counseling patient: Coding Level of Care Code 91842 SUB INP/OBS CARE 2/35MIN Diagnoses Acute and chronic respiratory failure with hypoxia J96.21 Pulmonary fibrosis J84.10 Pulmonary hypertension I27.20
[2023-10-01] MEDS: LANTUS PER UNIT CHARGE SC SCH (09:39)
--- NOTE | 2023-10-01 13:16 | Hospitalist Progress Note ---
Date of Service October 01, 2023 Assessment & Plan (1) Acute on chronic respiratory failure with hypoxia: (2) Interstitial lung disease: (3) Pulmonary fibrosis: (4) Elevated troponin: (5) Pulmonary hypertension: Plan 73 year old female with history of DM type II, ILD/pulmonary fibrosis with chronic hypoxic respiratory failure on 14L/min, severe pulmonary HTN, etc who presented to the ED for evaluation secondary to SOB and exertional chest tightness and was found to have acute on chronic respiratory failure with hypoxia. She was tachycardic and tachypneic on presentation, with oxygen saturation of 68% on arrival which improved to 94% w/ 15L via non-rebreather and subsequently required HFNC. CTA chest 09/25 1. There is no evidence of pulmonary embolus in the main, lobar, or segmental pulmonary arteries. 2. Cardiomegaly with evidence of pulmonary artery hypertension. 3. Again seen are findings of chronic interstitial/fibrotic lung disease. 4. No superimposed air space consolidation or pleural effusion is identified. 5. Mildly enlarged mediastinal and hilar lymph nodes are similar to previous and likely related to chronic lung disease. 6. Cholelithiasis. Echo 09/25- LVEF >70% with no RWMA, PASP 66, mildly reduced RVSF Acute on Chronic Respiratory Failure with Hypoxia in setting of ILD/pulmonary fibrosis and severe pulmonary HTN- follows / [facility] [Dr. Finch]. Uses 14 L oxygen at baseline, now requiring HFNC. CTA chest and echo reviewed. RVP negative. BNP in 200s. Afebrile. - Seen by pulmonary and palliative and recommendations noted. - Trial of iv steroids, nebs to see how she does but without any significant improvement so far. S/p iv lasix. Continue doxycycline, pirfenidone, IS, Flutter valve. Started on bactrim MWF per pulm given her prolonged steroid course. IV so lumderol decreased to bid per pulm. On GI prophylaxis with PPI while on high dose steroids. - Continue HFNC- wean down as tolerated - Seen by hospice yesterday- as above Elevated Troponin- trop trend mild and flat. Demand ischemia from above HTN- continue [employer] losartan. BP stable DM Type II with hyperglycemia worsened due to steroids- Glycemic pharmacist managing insulin. A1c 7.8 Leucocytosis- likely due to high dose steroids. Monitor. On doxy and bactrim. DVT ppx- sc lovenox Dispo- TBD. Still on HFNC. Palliative following DNR/DNI Time spent- approx 35 mins Admission and Anticipated Discharge Date Admission Date: September 26, 2023 Subjective Patient was seen and examined at bedside. Still on high flow. States she feels the same. No improvement. States she had meeting with hospice agency yesterday, palliative could not attend that- states that they are trying to find a hospice agency which would support home HFNC as she wants to go home. No new issues. Review of Systems Review of Systems: All systems reviewed & are unremarkable except as noted in Subjective Physical Exam Physical Exam: General: Sitting comfortably in bed, not in acute distress, on HFNC HEENT: EOMI, MELVIN, MMM Chest: Bilateral crackles CVS: Regular rate and rhythm, normal heart sounds Abdomen: Soft, non tender, not distended, normal bowel sounds Neuro: Awake, alert, oriented, conversing well, non focal Extremities: No edema Results & Data Results & Data Vital Signs (Past 12 Hours) Vital Signs Temp Pulse Pulse Pulse Resp BP Pulse Ox 10/01/23 11:34 20 90 10/01/23 11:00 57 L 10/01/23 10:03 36.4 C L 81 18 144/90 H 85 L 10/01/23 09:27 10/01/23 07:24 36.6 C 63 19 138/83 96 10/01/23 07:17 61 18 93 10/01/23 02:39 36.7 C 71 19 147/82 H 90 10/01/23 02:21 10/01/23 02:18 62 10/01/23 02:16 56 L 18 99 O2 Del Method O2 Flow Rate FiO2 10/01/23 11:34 High Flow Nasal Cannula 35 55 10/01/23 11:00 10/01/23 10:03 High Flow Nasal Cannula 35 10/01/23 09:27 High Flow Nasal Cannula 35 10/01/23 07:24 High Flow Nasal Cannula 35 10/01/23 07:17 High Flow Nasal Cannula 35 55 10/01/23 02:39 High Flow Nasal Cannula 10/01/23 02:21 High Flow Nasal Cannula 35 10/01/23 02:18 10/01/23 02:16 High Flow Nasal Cannula 35 65 Laboratory Results BMP 10/01/23 06:23 Sodium 136 Potassium 4.5 Chloride 104 Carbon Dioxide 23 BUN 47 H Creatinine 0.97 Glucose 182 H Calcium 9.6
[2023-10-01] MEDS: CARBOHYDRATES FOR HYPOGLYCEMIA PO PRN (16:31)
[2023-10-01] MEDS: methylPREDNISolone 40 MG in SYRINGE 0 ML IV SCH (20:37)
--- NOTE | 2023-10-01 20:51 | Palliative Care Progress Note ---
Date of Service October 01, 2023 Assessment & Plan (1) Dyspnea and respiratory abnormalities: Plan: remains on HFNC, prednisone, PCP prophylaxis modest weaning since Saturday Remains very easily dyspneic (2) Weakness generalized: (3) Advanced care planning/counseling discussion: Plan: 60min extensive detailed face to face ACP discussion at bedside with pt. No family present. She shared her sadness at being told she is hospice appropriate. She feels she is mourning her prior belief that she would get "better" and go home. She states the hospice nurse told her she is shocked there is no way to get her HFNC at home. Sheela asked me about this and I reviewed the limitation for home HFNC narciso that it is not zoned for residential use and requires ongoing supervision/monitoring and oversight which cannot be done in a home setting. We spoke at length about the mortality concerns. She spent 20 min talking about the "getting better" aspects but had not, when questioned, considered what if she does not get better? When we considered this she states that she believes she has lived a good life and if she can't get better from this admission or she gets worse/can't be weaned then she has peace knowing she tried to do what she could to try and get better but the disease is a terminal diagnosis and one day her time would come. We spoke about what she would desire for care goals if she worsened. She states she would elect comfort and wants to in comfort/with dignity and family by her side. We spoke about how comfort care/EOL care is delivered in the hospital and what meds would be used for symptom mgt. She reiterates a desire to avoid suffering and also to avoid "dragging out the dying part." Extensive support/reassurance provided. All questions answered to her satisfaction. (4) Palliative care by specialist: (5) IPF (idiopathic pulmonary fibrosis): (6) Encounter for hospice care discussion: (7) Acute and chronic respiratory failure with hypoxia: (8) Pulmonary fibrosis: (9) Pulmonary hypertension: (10) Interstitial lung disease: Plan As above Primary team and care mgt updated Thank you for allowing us to participate in the ongoing care of this patient. Please page with any additional concerns. Gio Babcock DNP Director, Palliative Medicine Admission and Anticipated Discharge Date Admission Date: September 26, 2023 Nelida Coker and her family met with hospice nurse at her bedside yesterday afternoon She was shocked to hear the nurse say she is hospice appropriate and feels like this is the first time anyone has said that to her and her family. She remains on HFNC with a modest de escalation to 55% FiO2 and 35-40lpm. Continues daily prednisone and bactrim for PCP prophylaxis She feels her and daughters are coming to terms with her likely limited mortality. called her this morning and told her they spoke further as a family after leaving the hospital and their daughters helped him understand the situation and its toll on her. She is dyspneic easily and has not been very active apart from occ trips to bathroom with assistance Appetite is ok Good support from friends and family Appreciated the house worker general visit and he helped connect with her [employer] workforce services representative who came to see her this weekend; she states "that was so good for my heart. I haven't been able to attend hinduism since Covid and I miss it. I can never see our workforce services representative in person. HIs visit was so good for my heart." Review of Systems Review of Systems: All systems reviewed & are unremarkable except as noted in Subjective Physical Exam Constitutional: + acute distress, + ill appearing, + thi n and + frail appearing easily dyspneic Eyes: PERRL, conjunctivae normal, anicteric sclerae ENMT: external ear and nose normal, oropharynx normal Neck: trachea midline, no thyromegaly Respiratory: + respiratory distress, + labored breath ing, + uses accessory muscles, + cough, + pursed lip breathing and symmetric chest movement; + not able to speak in complete sentence Auscultation: + crackles Cardiovascular: Rate/Rhythm: + tachycardic Heart Sounds: + gallop Extremities: no pedal edema Gastrointestinal (Abdomen): normal bowel sounds, soft, nontender, no hepatosplenomegaly Musculoskeletal: gen weakness Skin: + turgor decreased and + pallor nailbeds dusky, fingertips tinged with blue, cooler to touch Neurologic: PERRL, EOMI, accommodation nl, no face palsy, no dysarthria Psychiatric: A+Ox3, euthymic affect Results & Data Vital Signs (Past 12 Hours) Vital Signs Temp Pulse Pulse Pulse Resp BP Pulse Ox 10/01/23 19:27 36.7 C 70 19 124/89 96 10/01/23 19:21 70 20 92 10/01/23 17:40 80 10/01/23 16:00 10/01/23 15:23 36.7 C 71 20 130/84 96 10/01/23 14:26 72 22 92 10/01/23 13:38 66 24 90 10/01/23 11:34 20 90 10/01/23 11:00 57 L 10/01/23 10:03 36.4 C L 81 18 144/90 H 85 L 10/01/23 09:27 Pulse Ox O2 Del Method O2 Del Method O2 Flow Rate O2 Flow Rate FiO2 10/01/23 19:27 High Flow Nasal Cannula 10/01/23 19:21 High Flow Nasal Cannula 35 55 10/01/23 17:40 10/01/23 16:00 96 High Flow Nasal Cannula 35 10/01/23 15:23 High Flow Nasal Cannula 35 10/01/23 14:26 High Flow Nasal Cannula 35 55 10/01/23 13:38 Nasal Cannula 35 55 10/01/23 11:34 High Flow Nasal Cannula 35 55 10/01/23 11:00 10/01/23 10:03 High Flow Nasal Cannula 35 10/01/23 09:27 High Flow Nasal Cannula 35 Laboratory Results Abnormal lab results 10/01/23 10/01/23 10/01/23 Range/Units 06:23 07:22 11:14 BUN 47 H (6-23) mg/dl BUN/Creatinine Ratio 48.5 H (10-20) Glucose 182 H (70-99(Fasting)) mg/dl POC Glucose 178 H 219 H (70-99) mg/dl 10/01/23 10/01/23 Range/Units 16:30 16:31 BUN (6-23) mg/dl BUN/Creatinine Ratio (10-20) Glucose (70-99(Fasting)) mg/dl POC Glucose 59 L* 60 L* (70-99) mg/dl Diagnostic Findings Chest CTA 09/26/23 14:28 CT ANGIOGRAM OF THE CHEST CLINICAL HISTORY: Dyspnea COMPARISON STUDY: Chest CT dated 12/30/2022. Chest x-ray dated 09/26/2023. TECHNIQUE: Following the IV administration of 119 cc of Optiray 320, CT angiogram of the chest was performed from the upper abdomen to the thoracic inlet utilizing the pulmonary embolus protocol. Images are reviewed in the axial, sagittal, and coronal planes. 3-D MIPS images are created and assessed. IV contrast was administered without complication. A dose lowering technique was utilized adhering to the principles of ALARA. CT DOSE: 745.76 mGy.cm FINDINGS: Thyroid: Imaged portions of the thyroid gland are normal in size and attenuation. Thoracic aorta: There is atherosclerotic calcification of the thoracic aorta, which is normal in caliber and demonstrates 4-vessel variant arch anatomy. 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 No dissection is seen. Pulmonary vasculature: The pulmonary trunk is dilated, measuring 3.3 cm in diameter. This suggests pulmonary artery hypertension. There are no filling defects identified in main, lobar, or segmental pulmonary branches to suggest pulmonary embolus. Heart: The heart is enlarged without pericardial effusion. Lungs and pleural spaces: Again seen are changes of chronic interstitial/fibrotic lung disease. There is diffuse subpleural reticulation with intralobular septal thickening and groundglass consolidation. This shows a lower lobe predominance. Traction bronchiectasis is seen throughout both lungs. There are scattered foci of honeycombing. Foci of air trapping are seen bilaterally. No superimposed airspace consolidation or pleural effusion is id entified. The trachea and central airways are clear. Scattered calcified granulomas are observed. Mediastinum: Enlarged high right paratracheal lymph node on image #188 is similar to previous, measuring 1.8 x 1.4 cm. A precarinal node is also unchanged, measuring up to 1.3 cm in short axis. Aixa: Mildly enlarged hilar nodes are similar to previous, measuring up to 13 mm in short axis. Axillae: There is no axillary lymphadenopathy. Upper abdomen: Gallstones are noted. There is a small hiatal hernia. Skeletal structures: The skeletal structures are osteopenic. Degenerative change is noted in the shoulders and spine. No lytic or blastic bony lesions are seen. IMPRESSION: 1. There is no evidence of pulmonary embolus in the main, lobar, or segmental pulmonary arteries. 2. Cardiomegaly with evidence of pulmonary artery hypertension. 3. Again seen are findings of chronic interstitial/fibrotic lung disease. 4. No superimposed air space consolidation or pleural effusion is identified. 5. Mildly enlarged mediastinal and hilar lymph nodes are similar to previous and likely related to chronic lung disease. 6. Cholelithiasis. 7. Additional findings as above. ACT 112: Negative or not required by law. Electronically signed by: Tj Calvert M.D. 09/26/2023 3:31 PM Chest X-Ray 09/26/23 14:28 XR chest 1V portable CLINICAL HISTORY: Chest pain, nonspecific TECHNIQUE: Single frontal radiograph of the chest was obtained. Comparison: Comparison is made to chest radiograph 12/30/2022 FINDINGS: No lines and tubes are seen. Cardiomegaly is noted. The aortic arch is calcified. Reticular interstitial opacities are seen. No evidence of pleural effusion or pneumothorax. IMPRESSION: No acute chest disease. Cardiomegaly is noted. ACT 112: Negative or not required by law. Electronically signed by: Krishan Loja M.D. 09/26/2023 3:05 PM PG Care Time/CCT Total # of Minutes Spent Total Time Spent with Patient: Total time spent is greater than 50% in coordination of care (as documented) at patient's floor/unit and/or counseling patient: I spent 115 minutes overall addressing this case: 10 min in medical data review/discussion with referring provider(s) and/or preparation for the visit 15min in direct interaction with the patient/exam 60 min in Advance Care Planning/Goals of Care discussions as detailed above in note (must be >16min) 15 min in subsequent review and synthesis of assessment and plan 15min communicating with other providers regarding the patient's case: Prolonged Care Time Prolonged Care Time: Yes Advanced Care Planning 65732 Advanced Care Planning 30 Min [id number] Advanced Care Planning Additional 30 Min [place] [address] SUB INP/OBS CARE 3/50MIN (25 - SIGNIFICANT, SEPARATELY IDENTIFIABLE ) Patient Type Established Medical Decision Making High Complexity Diagnoses Dyspnea and respiratory abnormalities R06.00; R06.89 Weakness generalized R53.1 Advanced care planning/counseling discussion Z71.89 Palliative care by specialist Z51.5 IPF (idiopathic pulmonary fibrosis) J84.112 Encounter for hospice care discussion Z71.89 Acute and chronic respiratory failure with hypoxia J96.21 Pulmonary fibrosis J84.10 Pulmonary hypertension I27.20 Interstitial lung disease J84.9 Additional Codes Advanced Care Planning - 67414 Advanced Care Planning 30 Min: 58834 Advanced Care Planning 30 Min ([id number]) Advanced Care Planning - 44450 Advanced Care Planning Additional 30 Min: 67468 Advanced Care Planning Additional 30 Min ([id number]) Prolonged Care Time - Prolonged Care Time: Yes ([id number])
--- NOTE | 2023-10-02 07:16 | Pulmonology Progress Note ---
Date of Service October 02, 2023 Assessment & Plan (1) Acute and chronic respiratory failure with hypoxia: (2) Pulmonary fibrosis: (3) Pulmonary hypertension: Plan CT chest 09/26/2023 personally reviewed: Increased reticular markings appreciated bilaterally upper and lower lobes Traction bronchiectasis appreciated bilaterally Minimal right hilar lymphadenopathy No acute change compared to CT chest 12/31 This includes the right hilar adenopathy --Acute on chronic hypoxic respiratory failure Likely secondary to underlying IPF Uses 14 L oxygen on exertion and 10 L at rest Has been on 20 mg of prednisone since at least May 2023 Was also taking azithromycin [id number]-Mwtqopvpr-Ybvqhe Was taking pirfenidone 801 mg 3 times daily -- Pulmonary hypertension Likely type III Continue with diuresis as tolerated Plan: -2.6 L since coming to the hospital Decrease Solu-Medrol to 40 mg every 12, continue with pantoprazole Given that the patient has been on prednisone> 20 mg for more than a month, continue with Bactrim Armrtb-Hvuiotuuy-Wywjkg Continue with diuretics Complete the course of doxycycline for total of 7 days and then stop. Overall prognosis is guarded given the gradual worsening of her symptoms for approximately a year. Case was discussed with RN at bedside Please note the above document was generated using voice recognition software. It may contain grammatical, syntax or spelling errors.Any formal questions or concerns about the content, text or information contained within the body of this dictation should be directly addressed to the provider for clarification. Admission and Anticipated Discharge Date Admission Date: September 26, 2023 Subjective Patient seen and examined at bedside. No acute distress, no gross events overnight She was saturating 96-97% on 35 L, 50% FiO2, I went down to 45%. Overall she says that she is feeling little bit better compared to before Occasional cough with clear phlegm. Denies any chest pain No headache or blurry vision Fair appetite Review of Systems 2 Review of Systems: All systems reviewed & are unremarkable except as noted in Subjective Physical Exam 2 Physical Exam: Constitutional: In mild respiratory distress HEENT: EOMI, PERRLA Respiratory system: Decreased air entry bilaterally, no wheeze, no rhonchi, positive Velcro-like crackles appreciated bilaterally anterior and posteriorly especially on the posterior side, more on the left CVS: S1-S2 positive, no murmurs or gallops, accentuated P2 Abdomen: Soft, nontender, nondistended, positive bowel sounds x4 Extremities: +2 pulses bilaterally radialis/ dorsalis pedis, no cyanosis, no edema Neuro: Awake alert oriented x3 Psych: Normal mood and affect G/U: Pure wick Skin: no rashes, warm and dry Lymphatic: no cervical or axillary lymphadenopathy Results & Data Results & Data Vital Signs (Past 12 Hours) Vital Signs Temp Pulse Pulse Resp BP Pulse Ox O2 Del Method 10/02/23 07:07 69 21 96 High Flow Nasal Cannula 10/02/23 03:27 88 22 92 High Flow Nasal Cannula 10/02/23 03:24 36.4 C L 63 18 120/72 96 High Flow Nasal Cannula 10/02/23 00:59 67 20 98 High Flow Nasal Cannula 10/01/23 23:58 62 18 98 High Flow Nasal Cannula 10/01/23 23:01 36.6 C 62 17 113/74 97 High Flow Nasal Cannula 10/01/23 21:07 High Flow Nasal Cannula 10/01/23 19:27 36.7 C 70 19 124/89 96 High Flow Nasal Cannula 10/01/23 19:21 70 20 92 High Flow Nasal Cannula O2 Flow Rate FiO2 10/02/23 07:07 35 55 10/02/23 03:27 35 55 10/02/23 03:24 10/02/23 00:59 35 50 10/01/23 23:58 35 50 10/01/23 23:01 10/01/23 21:07 10/01/23 19:27 10/01/23 19:21 35 55 Laboratory Results 09/30/23 06:07 10/01/23 06:23 PG Care Time/CCT Total # of Minutes Spent Total Time Spent with Patient: Total time spent is greater than 50% in coordination of care (as documented) at patient's floor/unit and/or counseling patient: Coding Level of Care Code 39540 SUB INP/OBS CARE 2/35MIN Diagnoses Acute and chronic respiratory failure with hypoxia J96.21 Pulmonary fibrosis J84.10 Pulmonary hypertension I27.20
[2023-10-02] MEDS: LANTUS PER UNIT CHARGE SC SCH ×2 (09:18→21:28)
--- NOTE | 2023-10-02 14:13 | Hospitalist Progress Note ---
Date of Service October 02, 2023 Assessment & Plan (1) Acute on chronic respiratory failure with hypoxia: (2) Interstitial lung disease: (3) Pulmonary fibrosis: (4) Elevated troponin: (5) Pulmonary hypertension: Plan 73 year old female with history of DM type II, ILD/pulmonary fibrosis with chronic hypoxic respiratory failure on 14L/min, severe pulmonary HTN, etc who presented to the ED for evaluation secondary to SOB and exertional chest tightness and was found to have acute on chronic respiratory failure with hypoxia. She was tachycardic and tachypneic on presentation, with oxygen saturation of 68% on arrival which improved to 94% w/ 15L via non-rebreather and subsequently required HFNC. CTA chest 09/25 1. There is no evidence of pulmonary embolus in the main, lobar, or segmental pulmonary arteries. 2. Cardiomegaly with evidence of pulmonary artery hypertension. 3. Again seen are findings of chronic interstitial/fibrotic lung disease. 4. No superimposed air space consolidation or pleural effusion is identified. 5. Mildly enlarged mediastinal and hilar lymph nodes are similar to previous and likely related to chronic lung disease. 6. Cholelithiasis. Echo 09/25- LVEF >70% with no RWMA, PASP 66, mildly reduced RVSF Acute on Chronic Respiratory Failure with Hypoxia in setting of ILD/pulmonary fibrosis and severe pulmonary HTN- follows / [facility] [Dr. Finch]. Uses 14 L oxygen at baseline, now requiring HFNC. CTA chest and echo reviewed. RVP negative. BNP in 200s. Afebrile. - Seen by pulmonary and palliative and recommendations noted. - Trial of iv steroids, nebs to see how she does but without any significant improvement so far. S/p iv lasix. Continue doxycycline, pirfenidone, IS, Flutter valve. Started on bactrim MWF per pulm given her prolonged steroid course. IV so lumderol decreased to bid per pulm. On GI prophylaxis with PPI while on high dose steroids. - Continue HFNC- wean down as tolerated - Seen by hospice on Saturday Elevated Troponin- trop trend mild and flat. Demand ischemia from above HTN- continue DRILL PRESSER losartan. BP stable DM Type II with labile blood sugar on steroids- Glycemic pharmacist managing insulin. A1c 7.8 Leucocytosis- likely due to high dose steroids. Monitor. On doxy and bactrim. DVT ppx- sc lovenox Dispo- TBD. Still on HFNC. Palliative following DNR/DNI Time spent- approx 35 mins Admission and Anticipated Discharge Date Admission Date: September 26, 2023 Subjective Patient was seen and examined at bedside. She feels somewhat better- states she is able to talk better now without getting much dyspnea as before, otherwise remains about the same on HFNC. No other issues. No fever, chils, CP, N/V. Regular BM. She is not ready to come off the HFNC. Her hope is to get better and go home. Review of Systems Review of Systems: All systems reviewed & are unremarkable except as noted in Subjective Physical Exam Physical Exam: General: Sitting comfortably in bed, not in acute distress, on HFNC HEENT: EOMI, MELVIN, MMM Chest: Bilateral crackles CVS: Regular rate and rhythm, normal heart sounds Abdomen: Soft, non tender, not distended, normal bowel sounds Neuro: Awake, alert, oriented, conversing well, non focal Extremities: No edema Results & Data Results & Data Vital Signs (Past 12 Hours) Vital Signs Temp Pulse Pulse Pulse Resp BP Pulse Ox 10/02/23 13:17 10/02/23 12:59 88 20 10/02/23 10:54 36.6 C 60 18 142/87 H 91 10/02/23 10:16 55 L 10/02/23 07:32 10/02/23 07:29 36.6 C 59 L 17 123/76 93 10/02/23 07:07 69 21 96 10/02/23 03:27 88 22 92 10/02/23 03:24 36.4 C L 63 18 120/72 96 O2 Del Method O2 Flow Rate FiO2 10/02/23 13:17 35 50 10/02/23 12:59 High Flow Nasal Cannula 40 45 10/02/23 10:54 High Flow Nasal Cannula 40 10/02/23 10:16 10/02/23 07:32 High Flow Nasal Cannula 35 10/02/23 07:29 High Flow Nasal Cannula 35 10/02/23 07:07 High Flow Nasal Cannula 35 55 10/02/23 03:27 High Flow Nasal Cannula 35 55 10/02/23 03:24 High Flow Nasal Cannula
--- NOTE | 2023-10-02 14:25 | Pharmacy Report ---
Pharmacy Glycemic Short Note 2 - Date of Service October 02, 2023 - Glycemic Short BSG Results (Last 24 hours): 10/01/23 10/01/23 10/01/23 16:30 16:31 16:46 POC Glucose 59 L* 60 L* 72 10/01/23 10/02/23 10/02/23 20:07 07:27 11:25 POC Glucose 93 124 H 137 H OUTPATIENT ANTIDIABETIC REGIMEN: * Metformin 1000 mg PO qPM * Jardiance 10 mg PO daily * HbA1c: 8% (09/29/23) ASSESSMENT: 10/02/23: * Patient with episode of hypoglycemia yesterday at dinnertime (59 mg/dL) * This is likely related to stacking of Novolog in AM as breakfast insulin was not given until 0940 * Fasting blood sugar much improved today so will split BID and allow for scaled dose this evening * Remains on methylprednisolone 40 mg IV q12h 09/30/23: * Blood sugars remain intermittently elevated w/ persistently elevated fasting blood sugar (168 mg/dL today) * Will allow for increased basal dose today via HS scale * Will tighten carb ratio today * Continues on methylprednisolone 40 mg IV q8h 09/27: * Patient received 20 units basal and 25 units bolus insulins yesterday. BSGs were [phone] mg/dl. * Fasting BSG today AM was 166 mg/dl. Added scaled dose of basal insulin for HS tonight. * Solu Medrol 40 mg IV q8h continues. Novolog parameters were tightened further today morning. 09/27/23: * Nicolasa is a 73 yo T2DM who presented with SOB and exertional chest tightness, found to be in acute on chronic respiratory failure with hypoxia. * She has been started on high dose IV steroids (currently ordered solu medrol 40 mg IV q8h). Majority of BSGs over the past 24 hours have been > 200 mg/dL. Fasting BSG was near goal, 123 mg/dL. * During previous admissions, patient required aggressive short acting insulin and ~10-20 units of basal insulin per day while on prednisone. * Will order a one time dose of Lantus and tighten Novolog CF/CR plus overnight checks with coverage. PLAN FOR INPATIENT GLYCEMIC CONTROL: * Hold outpatient oral diabetes medications * Basal insulin * Lantus 20 units SQ QAM * Lantus 0-10-20 units SC HS (see EHR for details) * Bolus insulin * NovoLog per scale ACHS or Q6hrs while NPO * Goal Range: Low 110 mg/dL - High 140 mg/dL * Correction Factor: 20 mg/dL/unit * Nutritional / Prandial insulin per carb ratio of 1 unit per 5 grams CHO consumed
[2023-10-02] MEDS ORDERED: PIRFENIDONE PO SCH (22:00)
[2023-10-03 06:27] LABS: Hematocrit (blood only) 35.9 % (37.0-47.0); Hemoglobin 11.5 g/dl (12.0-16.0); Mean Corpuscular Hemoglobin 28.7 pg (25.0-34.0); Mean Corpuscular Volume 89.5 fL (80.0-100.0); Mean Platelet Volume 11.5 fL (9.4-12.4); Platelet Count 234 K/uL (130-400); RDW Coefficient of Variation 16.2 % (11.5-14.5); RDW Standard Deviation 53.1 fL (36.4-46.3); Red Blood Count 4.01 M/uL (4.20-5.40); White Blood Count 14.74 K/ul (4.8-10.8)
[2023-10-03 06:34] LABS: Albumin Globulin Ratio 1.4 (0.9-2); Albumin Level 3.5 gm/dl (3.4-5.0); BUN Creatinine Ratio 44.4 (10-20); Bilirubin,Total 0.4 mg/dl (0.2-1.0); Creatinine Clr Calc Pharmacy 56.9 ml/min; Est GFR (African American) 82.9 ml/min; Est GFR (Non-African American) 71.5 ml/min; Globulin 2.5 gm/dl (2.5-4.0); Magnesium 2.1 mg/dl (1.7-2.4); Potassium 4.3 mmol/L (3.5-5.1)
[2023-10-03] MEDS: LANTUS PER UNIT CHARGE SC SCH (08:45)
[2023-10-03] MEDS: PIRFENIDONE PO SCH (08:49)
--- NOTE | 2023-10-03 09:27 | Pulmonology Progress Note ---
Date of Service October 03, 2023 Assessment & Plan (1) Acute and chronic respiratory failure with hypoxia: (2) Pulmonary fibrosis: (3) Pulmonary hypertension: Plan CT chest 09/26/2023 personally reviewed: Increased reticular markings appreciated bilaterally upper and lower lobes Traction bronchiectasis appreciated bilaterally Minimal right hilar lymphadenopathy No acute change compared to CT chest 12/31 This includes the right hilar adenopathy --Acute on chronic hypoxic respiratory failure Likely secondary to underlying IPF Uses 14 L oxygen on exertion and 10 L at rest Has been on 20 mg of prednisone since at least May 2023 Was also taking azithromycin Whuagr-Lfjsshmri-Psujai S/p doxycycline Was taking pirfenidone 801 mg 3 times daily -- Pulmonary hypertension Likely type III Continue with diuresis as tolerated Plan: -1.9 L since coming to the hospital Decrease Solu-Medrol to 40 mg daily, continue with pantoprazole. Would recommend to gradually taper off Solu-Medrol. Can start with prednisone milligram in the next couple of days and decreasing by 10 mg every every week. Given that the patient has been on prednisone> 20 mg for more than a month, continue with Bactrim Tthyvi-Rymmlrqcy-Xvjngh Complete the course of doxycycline Overall prognosis is guarded given the gradual worsening of her symptoms for approximately a year. Case was discussed with RN at bedside No further recommendation from pulmonary perspective, will sign off Please call directly with any questions Please note the above document was generated using voice recognition software. It may contain grammatical, syntax or spelling errors.Any formal questions or concerns about the content, text or information contained within the body of this dictation should be directly addressed to the provider for clarification. Admission and Anticipated Discharge Date Admission Date: September 26, 2023 Subjective Patient seen and examined at bedside. No acute distress, no adverse events overnight She was saturating 97% on 35 L, 80% FiO2. I went down to 60% FiO2. She was still saturating 91% at the end of examination She said overall she is feeling the same. Her saturation does go down whenever she is doing minimal exertion or moving left or right. Appetite is fair. No difficulty swallowing Denies any cough No chest pain Review of Systems 2 Review of Systems: All systems reviewed & are unremarkable except as noted in Subjective Physical Exam 2 Physical Exam: Constitutional: In mild respiratory distress HEENT: EOMI, PERRLA Respiratory system: Decreased air entry bilaterally, no wheeze, no rhonchi, positive Velcro-like crackles appreciated bilaterally anterior and posteriorly especially on the posterior side, more on the left CVS: S1-S2 positive, no murmurs or gallops, accentuated P2 Abdomen: Soft, nontender, nondistended, positive bowel sounds x4 Extremities: +2 pulses bilaterally radialis/ dorsalis pedis, no cyanosis, no edema Neuro: Awake alert oriented x3 Psych: Normal mood and affect G/U: Pure wick Skin: no rashes, warm and dry Lymphatic: no cervical or axillary lymphadenopathy Results & Data Results & Data Vital Signs (Past 12 Hours) Vital Signs Temp Pulse Pulse Pulse Resp BP Pulse Ox 10/03/23 07:48 36.5 C 105 H 18 138/88 100 10/03/23 07:38 81 22 88 L 10/03/23 07:30 56 L 10/03/23 04:43 64 20 97 10/03/23 03:15 36.5 C 63 19 135/81 96 10/03/23 00:39 80 20 91 10/03/23 00:31 80 20 91 10/02/23 23:46 10/02/23 23:14 36.6 C 82 19 131/82 93 10/02/23 22:06 O2 Del Method O2 Flow Rate FiO2 10/03/23 07:48 High Flow Nasal Cannula 30 10/03/23 07:38 High Flow Nasal Cannula 35 80 10/03/23 07:30 10/03/23 04:43 High Flow Nasal Cannula 25 55 10/03/23 03:15 High Flow Nasal Cannula 30 10/03/23 00:39 High Flow Nasal Cannula 30 55 10/03/23 00:31 High Flow Nasal Cannula 30 55 10/02/23 23:46 High Flow Nasal Cannula 10/02/23 23:14 High Flow Nasal Cannula 30 10/02/23 22:06 High Flow Nasal Cannula 30 60 Laboratory Results 10/03/23 05:22 10/03/23 05:22 PG Care Time/CCT Total # of Minutes Spent Total Time Spent with Patient: Total time spent is greater than 50% in coordination of care (as documented) at patient's floor/unit and/or counseling patient: Coding Level of Care Code 09290 SUB INP/OBS CARE 2/35MIN Diagnoses Acute and chronic respiratory failure with hypoxia J96.21 Pulmonary fibrosis J84.10 Pulmonary hypertension I27.20
--- NOTE | 2023-10-03 11:11 | Pharmacy Report ---
Pharmacy Glycemic Short Note 2 - Date of Service October 03, 2023 - Glycemic Short BSG Results (Last 24 hours): 10/02/23 10/02/23 10/02/23 11:25 16:15 20:05 Glucose POC Glucose 137 H 173 H 174 H 10/03/23 10/03/23 05:22 07:36 Glucose 240 H POC Glucose 187 H OUTPATIENT ANTIDIABETIC REGIMEN: * Metformin 1000 mg PO qPM * Jardiance 10 mg PO daily * HbA1c: 8% (09/29/23) ASSESSMENT: 10/03/23: * Stressors stable * AM fasting BSG significantly elevated. Will increase Lantus * Post-prandial BSG's yesterday with notable increase after loosening Novolog. However, hypoglycemia noted 09/30. Will keep Novolog parameters as-is for now, although tightening back to similar *regimen* that patient was on when hypoglycemic event occurred 09/30 may still be reasonable as the *etiology* of the event was likely 2nd stacking of insulin due to later administration of breakfast Novolog with earlier acquisition of lunch BSG 10/02/23: * Patient with episode of hypoglycemia yesterday at dinnertime (59 mg/dL) * This is likely related to stacking of Novolog in AM as breakfast insulin was not given until 0940 * Fasting blood sugar much improved today so will split BID and allow for scaled dose this evening * Remains on methylprednisolone 40 mg IV q12h 09/30/23: * Blood sugars remain intermittently elevated w/ persistently elevated fasting blood sugar (168 mg/dL today) * Will allow for increased basal dose today via HS scale * Will tighten carb ratio today * Continues on methylprednisolone 40 mg IV q8h 09/27: * Patient received 20 units basal and 25 units bolus insulins yesterday. BSGs were [phone] mg/dl. * Fasting BSG today AM was 166 mg/dl. Added scaled dose of basal insulin for HS tonight. * Solu Medrol 40 mg IV q8h continues. Novolog parameters were tightened further today morning. 09/27/23: * Nicolasa is a 73 yo T2DM who presented with SOB and exertional chest tightness, found to be in acute on chronic respiratory failure with hypoxia. * She has been started on high dose IV steroids (currently ordered solu medrol 40 mg IV q8h). Majority of BSGs over the past 24 hours have been > 200 mg/dL. Fasting BSG was near goal, 123 mg/dL. * During previous admissions, patient required aggressive short acting insulin and ~10-20 units of basal insulin per day while on prednisone. * Will order a one time dose of Lantus and tighten Novolog CF/CR plus overnight checks with coverage. PLAN FOR INPATIENT GLYCEMIC CONTROL: * Hold outpatient oral diabetes medications * Basal insulin * Lantus 20 units SQ QAM * Lantus 0-10-20 units SC HS (see EHR for details) * Bolus insulin * NovoLog per scale ACHS or Q6hrs while NPO * Goal Range: Low 110 mg/dL - High 140 mg/dL * Correction Factor: 20 mg/dL/unit * Nutritional / Prandial insulin per carb ratio of 1 unit per 5 grams CHO consumed
[2023-10-03] MEDS: ACETAMINOPHEN 325 MG TAB PO PRN (13:59)
--- NOTE | 2023-10-03 15:50 | Hospitalist Progress Note ---
Date of Service October 03, 2023 Assessment & Plan (1) Acute on chronic respiratory failure with hypoxia: (2) Interstitial lung disease: (3) Pulmonary fibrosis: (4) Elevated troponin: (5) Pulmonary hypertension: Plan 73 year old female with history of DM type II, ILD/pulmonary fibrosis with chronic hypoxic respiratory failure on 14L/min, severe pulmonary HTN, etc who presented to the ED for evaluation secondary to SOB and exertional chest tightness and was found to have acute on chronic respiratory failure with hypoxia. She was tachycardic and tachypneic on presentation, with oxygen saturation of 68% on arrival which improved to 94% w/ 15L via non-rebreather and subsequently required HFNC. CTA chest 09/25 1. There is no evidence of pulmonary embolus in the main, lobar, or segmental pulmonary arteries. 2. Cardiomegaly with evidence of pulmonary artery hypertension. 3. Again seen are findings of chronic interstitial/fibrotic lung disease. 4. No superimposed air space consolidation or pleural effusion is identified. 5. Mildly enlarged mediastinal and hilar lymph nodes are similar to previous and likely related to chronic lung disease. 6. Cholelithiasis. Echo 09/25- LVEF >70% with no RWMA, PASP 66, mildly reduced RVSF Acute on Chronic Respiratory Failure with Hypoxia in setting of ILD/pulmonary fibrosis and severe pulmonary HTN- follows w/ [facility] [Dr. Finch]. Uses 14 L oxygen at baseline, needed HFNC at presentation. CTA chest and echo reviewed. RVP negative. BNP in 200s. Afebrile. Pulm evaled, trial of iv steroids (use PPI while on steroid), taper steroid to 40 mg iv daily, finally to PO in next few days w/ plan of decreasing 10 mg every week. Complete doxy course. Guarded prognosis. C/w Bactrim MWF for she is on senior living steroid. Palliative evaled, appreciate recs. Continue doxycycline, pirfenidone, IS, Flutter valve. Taper steroid, c/w GI prophylaxis with PPI while on high dose steroids. Continue HFNC- wean down as tolerated Seen by hospice on Saturday Elevated Troponin- trop trend mild and flat. Demand ischemia from above HTN- continue [employer] losartan. BP stable DM Type II with labile blood sugar on steroids- Glycemic pharmacist managing insulin. A1c 7.8 Leucocytosis- likely due to high dose steroids. Monitor. On doxy and bactrim. DVT ppx- sc lovenox Dispo- TBD. Still on HFNC. Palliative following DNR/DNI Time spent- approx 50 mins Admission and Anticipated Discharge Date Admission Date: September 26, 2023 Subjective Patient was seen and examined at bedside. Patient was lying in bed, on 35 L oxygen via high flow nasal cannula, NAD, reports no new acute event overnight. She is feeling about the same and is hopeful that her oxygen requirement will decrease. Patient denies any cough or chest pain or shortness of breath or nausea or vomiting. Patient reports eating okay and moving bowels okay. Physical Exam Physical Exam: General: Sitting comfortably in bed, not in acute distress, on HFNC at 35 L HEENT: EOMI, MELVIN, MMM Chest: Bilateral crackles CVS: Regular rate and rhythm, normal heart sounds Abdomen: Soft, non tender, not distended, normal bowel sounds Neuro: Awake, alert, oriented, conversing well, non focal Extremities: No edema Results & Data Results & Data Vital Signs (Past 12 Hours) Vital Signs Temp Pulse Pulse Resp BP Pulse Ox O2 Del Method 10/03/23 15:28 74 17 95 Nasal Cannula 10/03/23 15:22 High Flow Nasal Cannula 10/03/23 15:13 36.8 C 75 18 116/73 95 High Flow Nasal Cannula 10/03/23 14:21 88 10/03/23 13:28 77 18 96 High Flow Nasal Cannula 10/03/23 11:32 71 17 92 High Flow Nasal Cannula 10/03/23 10:06 36.6 C 66 19 152/89 H 95 High Flow Nasal Cannula 10/03/23 08:00 10/03/23 07:48 36.5 C 105 H 18 138/88 100 High Flow Nasal Cannula 10/03/23 07:38 81 22 88 L High Flow Nasal Cannula 10/03/23 07:30 56 L 10/03/23 04:43 64 20 97 High Flow Nasal Cannula O2 Flow Rate FiO2 10/03/23 15:28 13 10/03/23 15:22 13 10/03/23 15:13 35 10/03/23 14:21 10/03/23 13:28 35 50 10/03/23 11:32 35 50 10/03/23 10:06 35 10/03/23 08:00 30 60 10/03/23 07:48 30 10/03/23 07:38 35 80 10/03/23 07:30 10/03/23 04:43 25 55
[2023-10-03] MEDS: INSULIN ASPART PER UNIT CHARGE SC ONE (21:49)
[2023-10-04 07:14] LABS: Hematocrit (blood only) 38.7 % (37.0-47.0); Hemoglobin 12.2 g/dl (12.0-16.0); Mean Corpuscular Hemoglobin 28.9 pg (25.0-34.0); Mean Corpuscular Hgb Conc 31.5 g/dL (32.0-36.0); Mean Corpuscular Volume 91.7 fL (80.0-100.0); Mean Platelet Volume 11.2 fL (9.4-12.4); Platelet Count 227 K/uL (130-400); RDW Standard Deviation 54.1 fL (36.4-46.3); Red Blood Count 4.22 M/uL (4.20-5.40); White Blood Count 17.13 K/ul (4.8-10.8)
--- NOTE | 2023-10-04 07:26 | Pulmonology Progress Note ---
Date of Service October 04, 2023 Assessment & Plan (1) Acute and chronic respiratory failure with hypoxia: (2) Pulmonary fibrosis: (3) Pulmonary hypertension: Plan CT chest 09/26/2023 personally reviewed: Increased reticular markings appreciated bilaterally upper and lower lobes Traction bronchiectasis appreciated bilaterally Minimal right hilar lymphadenopathy No acute change compared to CT chest 12/31 This includes the right hilar adenopathy --Acute on chronic hypoxic respiratory failure Likely secondary to underlying IPF Uses 14 L oxygen on exertion and 10 L at rest Has been on 20 mg of prednisone since at least May 2023 Was also taking azithromycin Goichd-Lreeufbcq-Ecvmeg S/p doxycycline Was taking pirfenidone 801 mg 3 times daily Completed the course of doxycycline -- Pulmonary hypertension Likely type III Continue with diuresis as tolerated Plan: -2.1 L since coming to the hospital Continue with Solu-Medrol to 40 mg daily, continue with pantoprazole. Can start with prednisone milligram in the next couple of days and decreasing by 10 mg every every week. Given that the patient has been on prednisone> 20 mg for more than a month, continue with Bactrim Ltwqmt-Mnascyeln-Rldzco Case was discussed with RN No further recommendation from pulmonary perspective, will sign off Please call directly with any questions Please note the above document was generated using voice recognition software. It may contain grammatical, syntax or spelling errors.Any formal questions or concerns about the content, text or information contained within the body of this dictation should be directly addressed to the provider for clarification. Admission and Anticipated Discharge Date Admission Date: September 26, 2023 Subjective Patient seen and examined at bedside. No acute distress, no adverse events overnight She was saturating 99% on a wet 11 L nasal cannula. I went down to 9 L Overall she says she is feeling better. Denied any nausea or vomiting Appetite is fair. Coughing up clear phlegm. No headache Review of Systems 2 Review of Systems: All systems reviewed & are unremarkable except as noted in Subjective Physical Exam 2 Physical Exam: Constitutional: No respiratory distress HEENT: EOMI, PERRLA Respiratory system: Decreased air entry bilaterally, no wheeze, no rhonchi, positive Velcro-like crackles appreciated bilaterally anterior and posteriorly especially on the posterior side, more on the left CVS: S1-S2 positive, no murmurs or gallops, accentuated P2 Abdomen: Soft, nontender, nondistended, positive bowel sounds x4 Extremities: +2 pulses bilaterally radialis/ dorsalis pedis, no cyanosis, no edema Neuro: Awake alert oriented x3 Psych: Normal mood and affect G/U: Pure wick Skin: no rashes, warm and dry Lymphatic: no cervical or axillary lymphadenopathy Results & Data Results & Data Vital Signs (Past 12 Hours) Vital Signs Temp Pulse Pulse Resp BP Pulse Ox O2 Del Method 10/04/23 07:19 61 16 99 Nasal Cannula 10/04/23 01:55 53 L 14 99 Nasal Cannula 10/03/23 22:30 36.3 C L 58 L 18 144/81 H 98 Nasal Cannula 10/03/23 22:30 66 10/03/23 19:56 36.3 C L 60 20 151/82 H 96 Nasal Cannula 10/03/23 19:39 Nasal Cannula 10/03/23 19:38 58 L 14 98 Nasal Cannula O2 Flow Rate 10/04/23 07:19 10 10/04/23 01:55 11 10/03/23 22:30 10/03/23 22:30 10/03/23 19:56 10/03/23 19:39 13 10/03/23 19:38 13 Laboratory Results 10/04/23 06:29 PG Care Time/CCT Total # of Minutes Spent Total Time Spent with Patient: Total time spent is greater than 50% in coordination of care (as documented) at patient's floor/unit and/or counseling patient: Coding Level of Care Code 91774 SUB INP/OBS CARE 2/35MIN Diagnoses Acute and chronic respiratory failure with hypoxia J96.21 Pulmonary fibrosis J84.10 Pulmonary hypertension I27.20
[2023-10-04 07:35] LABS: BUN Creatinine Ratio 41.7 (10-20); Calcium 9.2 mg/dl (8.6-10.3); Creatinine Clr Calc Pharmacy 55.5 ml/min; Est GFR (African American) 79.4 ml/min; Est GFR (Non-African American) 68.5 ml/min; Potassium 3.8 mmol/L (3.5-5.1)
[2023-10-04] MEDS: methylPREDNISolone 40 MG in SYRINGE 0 ML IV SCH (09:31)
[2023-10-04] MEDS: INSULIN ASPART PER UNIT CHARGE SC SCH (09:32)
--- NOTE | 2023-10-04 11:37 | Pharmacy Report ---
Pharmacy Glycemic Short Note 2 - Date of Service October 04, 2023 - Glycemic Short BSG Results (Last 24 hours): 10/03/23 10/03/23 10/04/23 16:17 20:12 06:29 Glucose 71 POC Glucose 182 H 162 H 10/04/23 10/04/23 07:33 11:25 Glucose POC Glucose 73 185 H OUTPATIENT ANTIDIABETIC REGIMEN: * Metformin 1000 mg PO qPM * Jardiance 10 mg PO daily * HbA1c: 8% (09/29/23) ASSESSMENT: 10/04/23 * Nicolasa received a total of 68 units of SC insulin yesterday (30 unit basal + 38 units bolus), BSGs 187, 162, 182, 162 mg/dL. * Methylprednisolone decreased from 40 mg IV BID to daily yesterday. * Fasting BSG below goal. Held Lantus this morning. Will decrease by ~33% and resume at lunchtime. * Continue current Novolog parameters - these were already loosened following reduction in steroids. 10/03/23: * Stressors stable * AM fasting BSG significantly elevated. Will increase Lantus * Post-prandial BSG's yesterday with notable increase after loosening Novolog. However, hypoglycemia noted 09/30. Will keep Novolog parameters as-is for now, although tightening back to similar *regimen* that patient was on when hypoglycemic event occurred 09/30 may still be reasonable as the *etiology* of the event was likely 2nd stacking of insulin due to later administration of breakfast Novolog with earlier acquisition of lunch BSG 10/02/23: * Patient with episode of hypoglycemia yesterday at dinnertime (59 mg/dL) * This is likely related to stacking of Novolog in AM as breakfast insulin was not given until 0940 * Fasting blood sugar much improved today so will split BID and allow for scaled dose this evening * Remains on methylprednisolone 40 mg IV q12h 09/30/23: * Blood sugars remain intermittently elevated w/ persistently elevated fasting blood sugar (168 mg/dL today) * Will allow for increased basal dose today via HS scale * Will tighten carb ratio today * Continues on methylprednisolone 40 mg IV q8h 09/27: * Patient received 20 units basal and 25 units bolus insulins yesterday. BSGs were [phone] mg/dl. * Fasting BSG today AM was 166 mg/dl. Added scaled dose of basal insulin for HS tonight. * Solu Medrol 40 mg IV q8h continues. Novolog parameters were tightened further today morning. 09/27/23: * Nicolasa is a 73 yo T2DM who presented with SOB and exertional chest tightness, found to be in acute on chronic respiratory failure with hypoxia. * She has been started on high dose IV steroids (currently ordered solu medrol 40 mg IV q8h). Majority of BSGs over the past 24 hours have been > 200 mg/dL. Fasting BSG was near goal, 123 mg/dL. * During previous admissions, patient required aggressive short acting insulin and ~10-20 units of basal insulin per day while on prednisone. * Will order a one time dose of Lantus and tighten Novolog CF/CR plus overnight checks with coverage. PLAN FOR INPATIENT GLYCEMIC CONTROL: * Hold outpatient oral diabetes medications * Basal insulin * Lantus 20 units SQ QAM * Bolus insulin * NovoLog per scale ACHS or Q6hrs while NPO * Goal Range: Low 110 mg/dL - High 140 mg/dL * Correction Factor: 25 mg/dL/unit * Nutritional / Prandial insulin per carb ratio of 1 unit per 7 grams CHO consumed
[2023-10-04] MEDS: LANTUS PER UNIT CHARGE SC SCH (12:38)
--- NOTE | 2023-10-04 15:32 | Hospitalist Progress Note ---
Date of Service October 04, 2023 Assessment & Plan (1) Acute on chronic respiratory failure with hypoxia: (2) Interstitial lung disease: (3) Pulmonary fibrosis: (4) Elevated troponin: (5) Pulmonary hypertension: Plan 73 year old female with history of DM type II, ILD/pulmonary fibrosis with chronic hypoxic respiratory failure on 14L/min, severe pulmonary HTN, etc who presented to the ED for evaluation secondary to SOB and exertional chest tightness and was found to have acute on chronic respiratory failure with hypoxia. She was tachycardic and tachypneic on presentation, with oxygen saturation of 68% on arrival which improved to 94% w/ 15L via non-rebreather and subsequently required HFNC. CTA chest 09/25 1. There is no evidence of pulmonary embolus in the main, lobar, or segmental pulmonary arteries. 2. Cardiomegaly with evidence of pulmonary artery hypertension. 3. Again seen are findings of chronic interstitial/fibrotic lung disease. 4. No superimposed air space consolidation or pleural effusion is identified. 5. Mildly enlarged mediastinal and hilar lymph nodes are similar to previous and likely related to chronic lung disease. 6. Cholelithiasis. Echo 09/25- LVEF >70% with no RWMA, PASP 66, mildly reduced RVSF Acute on Chronic Respiratory Failure with Hypoxia in setting of ILD/pulmonary fibrosis and severe pulmonary HTN- follows w/ [facility]monology [Dr. Finch]. Uses 14 L oxygen at baseline, needed HFNC at presentation. CTA chest and echo reviewed. RVP negative. BNP in 200s. Afebrile. Pulm evaled, trial of iv steroids (use PPI while on steroid), 40 mg iv daily, to PO in next few days w/ plan of decreasing 10 mg every week. Complete doxy course. Guarded prognosis. C/w Bactrim MWF for she is on retirement steroid. Palliative evaled, appreciate recs. Continue doxycycline, pirfenidone, IS, Flutter valve. Taper steroid, c/w GI prophylaxis with PPI while on high dose steroids. Continue HFNC- wean down as tolerated Seen by hospice on Saturday Elevated Troponin- trop trend mild and flat. Demand ischemia from above HTN- continue [employer] losartan. BP stable DM Type II with labile blood sugar on steroids- Glycemic pharmacist managing insulin. A1c 7.8 Leucocytosis- likely due to high dose steroids. Monitor. On doxy and bactrim. DVT ppx- sc lovenox Dispo- pt/ot. cm to assist w/ dc plan. DNR/DNI Time spent- approx 50 mins Admission and Anticipated Discharge Date Admission Date: September 26, 2023 Subjective Patient was seen and examined at bedside. Patient was lying in bed, on 11 L oxygen via high flow nasal cannula, NAD, reports no new acute event overnight. She is feeling better. Patient denies any cough or chest pain or shortness of breath or nausea or vomiting. Patient reports eating okay and moving bowels okay. Physical Exam Physical Exam: General: Sitting comfortably in bed, not in acute distress, on HFNC at 11 L HEENT: EOMI, MELVIN, MMM Chest: Bilateral crackles CVS: Regular rate and rhythm, normal heart sounds Abdomen: Soft, non tender, not distended, normal bowel sounds Neuro: Awake, alert, oriented, conversing well, non focal Extremities: No edema Results & Data Results & Data Vital Signs (Past 12 Hours) Vital Signs Temp Pulse Resp BP Pulse Ox O2 Del Method O2 Flow Rate 10/04/23 13:15 66 18 96 Nasal Cannula 11 10/04/23 11:25 Nasal Cannula, High Flow Nasal Cannula 10/04/23 10:43 36.3 C L 80 19 123/85 96 High Flow Nasal Cannula 11 10/04/23 07:34 36.3 C L 57 L 19 147/85 H 94 High Flow Nasal Cannula 8 10/04/23 07:19 61 16 99 Nasal Cannula 10
[2023-10-05 07:13] LABS: BUN Creatinine Ratio 34.8 (10-20); Calcium 8.8 mg/dl (8.6-10.3); Creatinine Clr Calc Pharmacy 52.8 ml/min; Est GFR (Non-African American) 63.8 ml/min; Phosphorus 3.2 mg/dl (2.5-4.9); Potassium 3.9 mmol/L (3.5-5.1)
[2023-10-05] MEDS: LANTUS PER UNIT CHARGE SC SCH ×2 (08:23→20:38)
--- NOTE | 2023-10-05 09:48 | Pulmonology Progress Note ---
Date of Service October 05, 2023 Assessment & Plan (1) Acute and chronic respiratory failure with hypoxia: (2) Pulmonary fibrosis: (3) Pulmonary hypertension: Plan CT chest 09/26/2023 personally reviewed: Increased reticular markings appreciated bilaterally upper and lower lobes Traction bronchiectasis appreciated bilaterally Minimal right hilar lymphadenopathy No acute change compared to CT chest 12/31 This includes the right hilar adenopathy --Acute on chronic hypoxic respiratory failure Likely secondary to underlying IPF Uses 14 L oxygen on exertion and 10 L at rest Has been on 20 mg of prednisone since at least May 2023 Was also taking azithromycin [id number] S/p doxycycline Was taking pirfenidone 801 mg 3 times daily Completed the course of doxycycline -- Pulmonary hypertension Likely type III Continue with diuresis as tolerated Plan: -2.1 L since coming to the hospital Continue with Solu-Medrol to 40 mg daily, continue with pantoprazole. Can start with prednisone 40 milligram in the next couple of days and decrease it by 10 mg every every week. Given that the patient has been on prednisone> 20 mg for more than a month, continue with Bactrim [id number] Case was discussed with RN as well as primary team No further recommendation from pulmonary perspective, will sign off Please call directly with any questions Please note the above document was generated using voice recognition software. It may contain grammatical, syntax or spelling errors.Any formal questions or concerns about the content, text or information contained within the body of this dictation should be directly addressed to the provider for clarification. Admission and Anticipated Discharge Date Admission Date: September 26, 2023 Subjective Patient seen and examined at bedside. No acute distress, no AutoSense overnight She was saturating 88% when I walked into the room while she was talking on the phone. Saturation was 88% at that time on 10 L. The saturation went up to 93-94% when she rested while I was examining her. Overall she stated that she is feeling the same. No significant cough Appetite is fair. Denies any chest pain Review of Systems 2 Review of Systems: All systems reviewed & are unremarkable except as noted in Subjective Physical Exam 2 Physical Exam: Constitutional: No respiratory distress HEENT: EOMI, PERRLA Respiratory system: Decreased air entry bilaterally, no wheeze, no rhonchi, positive Velcro-like crackles appreciated bilaterally anterior and posteriorly especially on the posterior side, more on the left CVS: S1-S2 positive, no murmurs or gallops, accentuated P2 Abdomen: Soft, nontender, nondistended, positive bowel sounds x4 Extremities: +2 pulses bilaterally radialis/ dorsalis pedis, no cyanosis, no edema Neuro: Awake alert oriented x3 Psych: Normal mood and affect G/U: Pure wick Skin: no rashes, warm and dry Lymphatic: no cervical or axillary lymphadenopathy Results & Data Results & Data Vital Signs (Past 12 Hours) Vital Signs Temp Pulse Pulse Resp BP Pulse Ox O2 Del Method 10/05/23 07:20 66 15 91 Nasal Cannula 10/05/23 07:00 36.9 C 60 16 147/80 H 90 Nasal Cannula 10/05/23 03:04 36.8 C 62 18 143/83 H 96 High Flow Nasal Cannula 10/05/23 00:01 85 18 90 Nasal Cannula 10/04/23 23:24 36.6 C 66 19 133/83 98 High Flow Nasal Cannula O2 Flow Rate 10/05/23 07:20 12 10/05/23 07:00 11 10/05/23 03:04 11 10/05/23 00:01 13 10/04/23 23:24 11 Laboratory Results 10/04/23 06:29 10/05/23 06:21 PG Care Time/CCT Total # of Minutes Spent Total Time Spent with Patient: Total time spent is greater than 50% in coordination of care (as documented) at patient's floor/unit and/or counseling patient: Coding Level of Care Code 41847 SUB INP/OBS CARE 2/35MIN Diagnoses Acute and chronic respiratory failure with hypoxia J96.21 Pulmonary fibrosis J84.10 Pulmonary hypertension I27.20
[2023-10-05] MEDS ORDERED: ALBUT/IPRATROP 3MG/0.5MG NEB 3 ML VIAL NEB PRN (13:39)
--- NOTE | 2023-10-05 15:41 | Hospitalist Progress Note ---
Date of Service October 05, 2023 Assessment & Plan (1) Acute on chronic respiratory failure with hypoxia: (2) Interstitial lung disease: (3) Pulmonary fibrosis: (4) Elevated troponin: (5) Pulmonary hypertension: Plan 73 year old female with history of DM type II, ILD/pulmonary fibrosis with chronic hypoxic respiratory failure on 14L/min, severe pulmonary HTN, etc who presented to the ED for evaluation secondary to SOB and exertional chest tightness and was found to have acute on chronic respiratory failure with hypoxia. She was tachycardic and tachypneic on presentation, with oxygen saturation of 68% on arrival which improved to 94% w/ 15L via non-rebreather and subsequently required HFNC. CTA chest 09/25 1. There is no evidence of pulmonary embolus in the main, lobar, or segmental pulmonary arteries. 2. Cardiomegaly with evidence of pulmonary artery hypertension. 3. Again seen are findings of chronic interstitial/fibrotic lung disease. 4. No superimposed air space consolidation or pleural effusion is identified. 5. Mildly enlarged mediastinal and hilar lymph nodes are similar to previous and likely related to chronic lung disease. 6. Cholelithiasis. Echo 09/25- LVEF >70% with no RWMA, PASP 66, mildly reduced RVSF Acute on Chronic Respiratory Failure with Hypoxia in setting of ILD/pulmonary fibrosis and severe pulmonary HTN- follows w/ [facility]mon[facility] [Dr. Finch]. Uses 14 L oxygen at baseline, needed HFNC at presentation. CTA chest and echo reviewed. RVP negative. BNP in 200s. Afebrile. Pulm evaled, trial of iv steroids (use PPI while on steroid), 40 mg iv daily, to PO in next few days w/ plan of decreasing 10 mg every week. Guarded prognosis. C/w Bactrim MWF for she is on snf steroid. s/p doxy course. Palliative evaled, appreciate recs. Continue pirfenidone, IS, Flutter valve. Taper steroid, c/w GI prophylaxis with PPI while on high dose steroids. Continue HFNC- wean down as tolerated Seen by hospice on Saturday. Elevated Troponin- trop trend mild and flat. Demand ischemia from above HTN- continue ACID BLOWER losartan. BP stable DM Type II with labile blood sugar on steroids- Glycemic pharmacist managing insulin. A1c 7.8 Leucocytosis- likely due to high dose steroids. Monitor. On bactrim. DVT ppx- sc lovenox Dispo- pt/ot. cm to assist w/ dc plan. DNR/DNI Time spent- approx 50 mins Admission and Anticipated Discharge Date Admission Date: September 26, 2023 Subjective Patient was seen and examined at bedside. Patient was lying in bed, on 11 L oxygen via high flow nasal cannula, NAD, reports no new acute event overnight. She is feeling better. Patient denies any cough or chest pain or shortness of breath or nausea or vomiting. Patient reports eating okay and moving bowels okay. Physical Exam Physical Exam: General: Sitting comfortably in bed, not in acute distress, on HFNC at 11 L HEENT: EOMI, MELVIN, MMM Chest: Bilateral crackles CVS: Regular rate and rhythm, normal heart sounds Abdomen: Soft, non tender, not distended, normal bowel sounds Neuro: Awake, alert, oriented, conversing well, non focal Extremities: No edema Results & Data Results & Data Vital Signs (Past 12 Hours) Vital Signs Temp Pulse Pulse Pulse Resp BP Pulse Ox 10/05/23 15:01 36.4 C L 84 17 136/83 97 10/05/23 11:18 36.5 C 64 17 141/84 H 98 10/05/23 08:00 57 L 10/05/23 07:20 66 15 91 10/05/23 07:00 36.9 C 60 16 147/80 H 90 O2 Del Method O2 Flow Rate 10/05/23 15:01 High Flow Nasal Cannula 14 10/05/23 11:18 High Flow Nasal Cannula 10 10/05/23 08:00 10/05/23 07:20 Nasal Cannula 12 10/05/23 07:00 Nasal Cannula 11
[2023-10-06 06:37] LABS: BUN Creatinine Ratio 38.8 (10-20); Calcium 8.8 mg/dl (8.6-10.3); Creatinine Clr Calc Pharmacy 58.2 ml/min; Est GFR (African American) 84.2 ml/min; Est GFR (Non-African American) 72.6 ml/min; Potassium 3.8 mmol/L (3.5-5.1)
[2023-10-06] MEDS: LANTUS PER UNIT CHARGE SC SCH (08:47)
[2023-10-06] MEDS ORDERED: LANTUS PER UNIT CHARGE SC SCH (09:00)
--- NOTE | 2023-10-06 15:29 | Hospitalist Progress Note ---
Date of Service October 06, 2023 Assessment & Plan (1) Acute on chronic respiratory failure with hypoxia: (2) Interstitial lung disease: (3) Pulmonary fibrosis: (4) Elevated troponin: (5) Pulmonary hypertension: Plan 73 year old female with history of DM type II, ILD/pulmonary fibrosis with chronic hypoxic respiratory failure on 14L/min, severe pulmonary HTN, etc who presented to the ED for evaluation secondary to SOB and exertional chest tightness and was found to have acute on chronic respiratory failure with hypoxia. She was tachycardic and tachypneic on presentation, with oxygen saturation of 68% on arrival which improved to 94% w/ 15L via non-rebreather and subsequently required HFNC. CTA chest 09/25 1. There is no evidence of pulmonary embolus in the main, lobar, or segmental pulmonary arteries. 2. Cardiomegaly with evidence of pulmonary artery hypertension. 3. Again seen are findings of chronic interstitial/fibrotic lung disease. 4. No superimposed air space consolidation or pleural effusion is identified. 5. Mildly enlarged mediastinal and hilar lymph nodes are similar to previous and likely related to chronic lung disease. 6. Cholelithiasis. Echo 09/25- LVEF >70% with no RWMA, PASP 66, mildly reduced RVSF Acute on Chronic Respiratory Failure with Hypoxia in setting of ILD/pulmonary fibrosis and severe pulmonary HTN- follows w/ [facility] Pulmonology [Dr. Finch]. Uses 14 L oxygen at baseline, needed HFNC at presentation. CTA chest and echo reviewed. RVP negative. BNP in 200s. Afebrile. Pulm evaled, trial of iv steroids (use PPI while on steroid), 40 mg iv daily, to PO and then taper w/ plan of decreasing 10 mg every week. Guarded prognosis. C/w Bactrim MWF for she is on final touch up painter steroid. s/p doxy course. Palliative evaled, appreciate recs. Continue pirfenidone, IS, Flutter valve. Taper steroid to po steroid from nicole, c/w GI prophylaxis with PPI while on high dose steroids. Continue HFNC- wean down as tolerated Seen by hospice on Saturday. Pt would like to d/w CM regarding hospice options. Elevated Troponin- trop trend mild and flat. Demand ischemia from above HTN- continue [employer] losartan. BP stable DM Type II with labile blood sugar on steroids- Glycemic pharmacist managing insulin. A1c 7.8 Leucocytosis- likely due to high dose steroids. Monitor. On bactrim. DVT ppx- sc lovenox Dispo- pt/ot. cm to assist w/ dc plan. DNR/DNI Time spent- approx 50 mins Admission and Anticipated Discharge Date Admission Date: September 26, 2023 Subjective Patient was seen and examined at bedside. Patient was lying in bed, on 13 L oxygen via high flow nasal cannula, NAD, reports no new acute event overnight. She is feeling better. Patient denies any cough or chest pain or shortness of breath or nausea or vomiting. Patient reports eating okay and moving bowels okay. Physical Exam Physical Exam: General: Sitting comfortably in bed, not in acute distress, on HFNC at 13 L HEENT: EOMI, MELVIN, MMM Chest: Bilateral crackles CVS: Regular rate and rhythm, normal heart sounds Abdomen: Soft, non tender, not distended, normal bowel sounds Neuro: Awake, alert, oriented, conversing well, non focal Extremities: No edema Results & Data Results & Data Vital Signs (Past 12 Hours) Vital Signs Temp Pulse Pulse Pulse Resp BP Pulse Ox 10/06/23 11:55 36.5 C 67 22 136/82 96 10/06/23 10:52 10/06/23 08:00 54 L 10/06/23 08:00 10/06/23 07:47 36.3 C L 55 L 22 149/87 H 96 10/06/23 07:13 63 17 90 10/06/23 04:15 36.4 C L 70 21 169/79 H 93 Pulse Ox Pulse Ox O2 Del Method O2 Flow Rate O2 Flow Rate O2 Flow Rate 10/06/23 11:55 High Flow Nasal Cannula 10/06/23 10:52 98 68 L 15 15 10/06/23 08:00 10/06/23 08:00 Nasal Cannula 10/06/23 07:47 High Flow Nasal Cannula 10/06/23 07:13 Nasal Cannula 10/06/23 04:15 High Flow Nasal Cannula
[2023-10-07 07:53] LABS: BUN Creatinine Ratio 36.5 (10-20); Calcium 8.4 mg/dl (8.6-10.3); Est GFR (African American) 92.5 ml/min; Est GFR (Non-African American) 79.8 ml/min; Magnesium 1.9 mg/dl (1.7-2.4); Potassium 3.6 mmol/L (3.5-5.1)
[2023-10-07] MEDS: predniSONE 20 MG TAB PO SCH (08:17)
--- NOTE | 2023-10-07 09:58 | Pharmacy Report ---
Pharmacy Glycemic Short Note 2 - Date of Service October 07, 2023 - Glycemic Short BSG Results (Last 24 hours): 10/06/23 10/06/23 10/06/23 11:29 16:04 20:28 Glucose POC Glucose 146 H 84 146 H 10/07/23 10/07/23 06:37 07:25 Glucose 101 H POC Glucose 101 H OUTPATIENT ANTIDIABETIC REGIMEN: * Metformin 1000 mg PO qPM * Jardiance 10 mg PO daily * HbA1c: 8% (09/29/23) ASSESSMENT: 10/07/23: * Nicolasa received 19 units of insulin yesterday (10 were basal) * Insulin requirements significantly decreased with down titration of IV methylprednisolone, changed to prednisone 40mg today, will continue with 10 units of basal insulin this AM and add a Lantus scale at bedtime if BSGs elevated * Fasting BSG slightly below goal range, but will not adjust Lantus at this time, patient has historically required 10-20 units of basal insulin with prednisone, may require increase * Upper limit of goal range increased due to correction below goal range yesterday twice at BSG of 146mg/dL. Requiring less bolus insulin as well compared with previous admission. Will continue to trend. 10/04/23 * Nicolasa received a total of 68 units of SC insulin yesterday (30 unit basal + 38 units bolus), BSGs 187, 162, 182, 162 mg/dL. * Methylprednisolone decreased from 40 mg IV BID to daily yesterday. * Fasting BSG below goal. Held Lantus this morning. Will decrease by ~33% and resume at lunchtime. * Continue current Novolog parameters - these were already loosened following reduction in steroids. 10/03/23: * Stressors stable * AM fasting BSG significantly elevated. Will increase Lantus * Post-prandial BSG's yesterday with notable increase after loosening Novolog. However, hypoglycemia noted 09/30. Will keep Novolog parameters as-is for now, although tightening back to similar *regimen* that patient was on when hypoglycemic event occurred 09/30 may still be reasonable as the *etiology* of the event was likely 2nd stacking of insulin due to later administration of b reakfast Novolog with earlier acquisition of lunch BSG 10/02/23: * Patient with episode of hypoglycemia yesterday at dinnertime (59 mg/dL) * This is likely related to stacking of Novolog in AM as breakfast insulin was not given until 0940 * Fasting blood sugar much improved today so will split BID and allow for scaled dose this evening * Remains on methylprednisolone 40 mg IV q12h 09/30/23: * Blood sugars remain intermittently elevated w/ persistently elevated fasting blood sugar (168 mg/dL today) * Will allow for increased basal dose today via HS scale * Will tighten carb ratio today * Continues on methylprednisolone 40 mg IV q8h 09/27: * Patient received 20 units basal and 25 units bolus insulins yesterday. BSGs were [phone] mg/dl. * Fasting BSG today AM was 166 mg/dl. Added scaled dose of basal insulin for HS tonight. * Solu Medrol 40 mg IV q8h continues. Novolog parameters were tightened further today morning. 09/27/23: * Nicolasa is a 73 yo T2DM who presented with SOB and exertional chest tightness, found to be in acute on chronic respiratory failure with hypoxia. * She has been started on high dose IV steroids (currently ordered solu medrol 40 mg IV q8h). Majority of BSGs over the past 24 hours have been > 200 mg/dL. Fasting BSG was near goal, 123 mg/dL. * During previous admissions, patient required aggressive short acting insulin and ~10-20 units of basal insulin per day while on prednisone. * Will order a one time dose of Lantus and tighten Novolog CF/CR plus overnight checks with coverage. PLAN FOR INPATIENT GLYCEMIC CONTROL: * Hold outpatient oral diabetes medications * Basal insulin * Lantus 20 units SQ QAM * Bolus insulin * NovoLog per scale ACHS or Q6hrs while NPO * Goal Range: Low 110 mg/dL - High 140 mg/dL * Correction Factor: 20 mg/dL/unit * Nutritional / Prandial insulin per carb ratio of 1 unit per 6 grams CHO consumed
--- NOTE | 2023-10-07 14:04 | Palliative Care Progress Note ---
Date of Service October 07, 2023 Assessment & Plan (1) Dyspnea and respiratory abnormalities: (2) Weakness generalized: (3) Pulmonary hypertension: (4) Encounter for hospice care discussion: (5) Advanced care planning/counseling discussion: (6) Palliative care by specialist: Plan Sheela wants to stay on pirfenidone for her IPF. It has clearly helped her over the last 5-6 years as she has had slow progression and relative stability. I would favor this as a medication that provides comfort. I asked her to obtain her day refill now so she has some at home. She also takes Fasenra q8wk for her asthma. This is not related to IPF, so should be reasonable to continue. She desires hospice at home, no rehab desired Offered and she accepted a family meeting tomorrow at her bedside with and dtr, scheduled for 12pm I updated Dr Cardoza Thank you for allowing us to participate in the ongoing care of this patient. Please page with any additional concerns. Gio Babcock DNP Director, Palliative Medicine Admission and Anticipated Discharge Date Admission Date: September 26, 2023 Subjective off high flow tolerating oob to chair appetite ok more discussions with family thru weekend leaning towards home hospice but needs clarity on how her other meds work with hospice ie pirfenidone and fasenra (for her asthma) Review of Systems Review of Systems: All systems reviewed & are unremarkable except as noted in Subjective Physical Exam Constitutional: + acute distress, + ill appearing, + thi n and + frail appearing Eyes: PERRL, conjunctivae normal, anicteric sclerae ENMT: external ear and nose normal, oropharynx normal Neck: trachea midline, no thyromegaly Respiratory: + respiratory distress, + labored breath ing, + uses accessory muscles, + cough, + pursed lip breathing and symmetric chest movement; + not able to speak in complete sentence Auscultation: + crackles Cardiovascular: Rate/Rhythm: + tachycardic Heart Sounds: + gallop Extre mities: no pedal edema Gastrointestinal (Abdomen): normal bowel sounds, soft, nontender, no hepatosplenomegaly Musculoskeletal: gen weakness Skin: + turgor decreased and + pallor Neurologic: PERRL, EOMI, accommodation nl, no face palsy, no dysarthria Psychiatric: A+Ox3, euthymic affect Results & Data Vital Signs (Past 12 Hours) Vital Signs Temp Pulse Pulse Pulse Resp BP Pulse Ox 10/07/23 11:53 36.3 C L 89 19 131/78 89 L 10/07/23 08:00 10/07/23 07:32 36.3 C L 58 L 19 134/83 97 10/07/23 07:08 72 18 94 10/07/23 07:00 64 10/07/23 03:50 36.4 C L 60 17 143/80 H 94 O2 Del Method O2 Flow Rate 10/07/23 11:53 High Flow Nasal Cannula 13 10/07/23 08:00 Nasal Cannula 12 10/07/23 07:32 High Flow Nasal Cannula 11 10/07/23 07:08 Nasal Cannula 11 10/07/23 07:00 10/07/23 03:50 High Flow Nasal Cannula 11 Laboratory Results Abnormal lab results 10/06/23 10/07/23 10/07/23 Range/Units 20:28 06:37 07:25 Chloride 109 H (98-107) mmol/L BUN 27 H (6-23) mg/dl BUN/Creatinine Ratio 36.5 H (10-20) Glucose 101 H (70-99(Fasting)) mg/dl POC Glucose 146 H 101 H (70-99) mg/dl Calcium 8.4 L (8.6-10.3) mg/dl 10/07/23 Range/Units 11:01 Chloride (98-107) mmol/L BUN (6-23) mg/dl BUN/Creatinine Ratio (10-20) Glucose (70-99(Fasting)) mg/dl POC Glucose 191 H (70-99) mg/dl Calcium (8.6-10.3) mg/dl Diagnostic Findings Chest CTA 09/26/23 14:28 CT ANGIOGRAM OF THE CHEST CLINICAL HISTORY: Dyspnea COMPARISON STUDY: Chest CT dated 12/30/2022. Chest x-ray dated 09/26/2023. TECHNIQUE: Following the IV administration of 119 cc of Optiray 320, CT angiogram of the chest was performed from the upper abdomen to the thoracic inlet utilizing the pulmonary embolus protocol. Images are reviewed in the axial, sagittal, and coronal planes. 3-D MIPS images are created and assessed. IV contrast was administered without complication. A dose lowering technique was utilized adhering to the principles of ALARA. CT DOSE: 745.76 mGy.cm FINDINGS: Thyroid: Imaged portions of the thyroid gland are normal in size and attenuation. Thoracic aorta: There is atherosclerotic calcification of the thoracic aorta, which is normal in caliber and demonstrates 4-vessel variant arch anatomy. 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 No dissection is seen. Pulmonary vasculature: The pulmonary trunk is dilated, measuring 3.3 cm in diameter. This suggests pulmonary artery hypertension. There are no filling defects identified in main, lobar, or segmental pulmonary branches to suggest pulmonary embolus. Heart: The heart is enlarged without pericardial effusion. Lungs and pleural spaces: Again seen are changes of chronic interstitial/fibrotic lung disease. There is diffuse subpleural reticulation with intralobular septal thickening and groundglass consolidation. This shows a lower lobe predominance. Traction bronchiectasis is seen throughout both lungs. There are scattered foci of honeycombing. Foci of air trapping are seen bi laterally. No superimposed airspace consolidation or pleural effusion is identified. The trachea and central airways are clear. Scattered calcified granulomas are observed. Mediastinum: Enlarged high right paratracheal lymph node on image #188 is similar to previous, measuring 1.8 x 1.4 cm. A precarinal node is also unchanged, measuring up to 1.3 cm in short axis. Aixa: Mildly enlarged hilar nodes are similar to previous, measuring up to 13 mm in short axis. Axillae: There is no axillary lymphadenopathy. Upper abdomen: Gallstones are noted. There is a small hiatal hernia. Skeletal structures: The skeletal structures are osteopenic. Degenerative change is noted in the shoulders and spine. No lytic or blastic bony lesions are seen. IMPRESSION: 1. There is no evidence of pulmonary embolus in the main, lobar, or segmental pulmonary arteries. 2. Cardiomegaly with evidence of pulmonary artery hypertension. 3. Again seen are findings of chronic interstitial/fibrotic lung disease. 4. No superimposed air space consolidation or pleural effusion is identified. 5. Mildly enlarged mediastinal and hilar lymph nodes are similar to previous and likely related to chronic lung disease. 6. Cholelithiasis. 7. Additional findings as above. ACT 112: Negative or not required by law. Electronically signed by: Tj Calvert M.D. 09/26/2023 3:31 PM Chest X-Ray 09/26/23 14:28 XR chest 1V portable CLINICAL HISTORY: Chest pain, nonspecific TECHNIQUE: Single frontal radiograph of the chest was obtained. Comparison: Comparison is made to chest radiograph 12/30/2022 FINDINGS: No lines and tubes are seen. Cardiomegaly is noted. The aortic arch is calcified. Reticular interstitial opacities are seen. No evidence of pleural effusion or pneumothorax. IMPRESSION: No acute chest disease. Cardiomegaly is noted. ACT 112: Negative or not required by law. Electronically signed by: Krishan Loja M.D. 09/26/2023 3:05 PM PG Care Time/CCT Total # of Minutes Spent Total Time Spent with Patient: Total time spent is greater than 50% in coordination of care (as documented) at patient's floor/unit and/or counseling patient: I spent 50 minutes overall addressing this case: 10 min in medical data review/discussion with referring provider(s) and/or preparation for the visit 15 min in direct interaction with the patient/exam 00 min in Advance Care Planning/Goals of Care discussions as detailed above in note (must be >16min) 10 min in subsequent review and synthesis of assessment and plan 15 min communicating with other providers regarding the patient's case: [place] [address] SUB INP/OBS CARE 3/50MIN Patient Type Established History Comprehensive Exam Comprehensive Medical Decision Making High Complexity Diagnoses Dyspnea and respiratory abnormalities R06.00; R06.89 Weakness generalized R53.1 Pulmonary hypertension I27.20 Encounter for hospice care discussion Z71.89 Advanced care planning/counseling discussion Z71.89 Palliative care by specialist Z51.5
--- NOTE | 2023-10-07 15:21 | Hospitalist Progress Note ---
Date of Service October 07, 2023 Assessment & Plan (1) Acute on chronic respiratory failure with hypoxia: (2) Interstitial lung disease: (3) Pulmonary fibrosis: (4) Elevated troponin: (5) Pulmonary hypertension: Plan 73 year old female with history of DM type II, ILD/pulmonary fibrosis with chronic hypoxic respiratory failure on 14L/min, severe pulmonary HTN, etc who presented to the ED for evaluation secondary to SOB and exertional chest tightness and was found to have acute on chronic respiratory failure with hypoxia. She was tachycardic and tachypneic on presentation, with oxygen saturation of 68% on arrival which improved to 94% w/ 15L via non-rebreather and subsequently required HFNC. CTA chest 09/25 1. There is no evidence of pulmonary embolus in the main, lobar, or segmental pulmonary arteries. 2. Cardiomegaly with evidence of pulmonary artery hypertension. 3. Again seen are findings of chronic interstitial/fibrotic lung disease. 4. No superimposed air space consolidation or pleural effusion is identified. 5. Mildly enlarged mediastinal and hilar lymph nodes are similar to previous and likely related to chronic lung disease. 6. Cholelithiasis. Echo 09/25- LVEF >70% with no RWMA, PASP 66, mildly reduced RVSF Acute on Chronic Respiratory Failure with Hypoxia in setting of ILD/pulmonary fibrosis and severe pulmonary HTN- follows w/ [facility] [Dr. Finch]. Uses 14 L oxygen at baseline, needed HFNC at presentation. CTA chest and echo reviewed. RVP negative. BNP in 200s. Afebrile. Pulm evaled, trial of iv steroids (use PPI while on steroid), 40 mg iv daily, to PO and then taper w/ plan of decreasing 10 mg every week. Guarded prognosis. C/w Bactrim MWF for she is on trial manager steroid. s/p doxy course. Palliative evaled, appreciate recs. Continue pirfenidone, IS, Flutter valve. Taper steroid to po steroid from nicole, c/w GI prophylaxis with PPI while on high dose steroids. Continue HFNC- wean down as tolerated Possible dc to home w/ hospice. Elevated Troponin- trop trend mild and flat. Demand ischemia from above HTN- continue [employer] losartan. BP stable DM Type II with labile blood sugar on steroids- Glycemic pharmacist managing insulin. A1c 7.8 Leucocytosis- likely due to high dose steroids. Monitor. On bactrim. DVT ppx- sc lovenox Dispo- pt/ot. Per CM, possible dc nicole w/ hospice, will need roxanol and ativan until hospice takes over. DNR/DNI Time spent- approx 45 mins Admission and Anticipated Discharge Date Admission Date: September 26, 2023 Subjective Patient was seen and examined at bedside. Patient was lying in bed, on 13 L oxygen via high flow nasal cannula, NAD, reports no new acute event overnight. She is feeling better. Patient denies any cough or chest pain or shortness of breath or nausea or vomiting. Patient reports eating okay and moving bowels okay. Physical Exam Physical Exam: General: Sitting comfortably in bed, not in acute distress, on HFNC at 11 L HEENT: EOMI, MELVIN, MMM Chest: Bilateral crackles CVS: Regular rate and rhythm, normal heart sounds Abdomen: Soft, non tender, not distended, normal bowel sounds Neuro: Awake, alert, oriented, conversing well, non focal Extremities: No edema Results & Data Results & Data Vital Signs (Past 12 Hours) Vital Signs Temp Pulse Pulse Pulse Resp BP Pulse Ox 10/07/23 15:03 36.6 C 81 18 146/89 H 91 10/07/23 11:53 36.3 C L 89 19 131/78 89 L 10/07/23 08:00 10/07/23 07:32 36.3 C L 58 L 19 134/83 97 10/07/23 07:08 72 18 94 10/07/23 07:00 64 10/07/23 03:50 36.4 C L 60 17 143/80 H 94 O2 Del Method O2 Flow Rate 10/07/23 15:03 High Flow Nasal Cannula 11 10/07/23 11:53 High Flow Nasal Cannula 13 10/07/23 08:00 Nasal Cannula 12 10/07/23 07:32 High Flow Nasal Cannula 11 10/07/23 07:08 Nasal Cannula 11 10/07/23 07:00 10/07/23 03:50 High Flow Nasal Cannula 11
--- NOTE | 2023-10-08 12:07 | Discharge Summary ---
Date of Service October 08, 2023 Admission HPI Per Admitting Provider Nicolasa Gomez is a 73y/o F with PMHx of DM type II, chronic respiratory failure with hypoxia [oxygen dependent; 10L at rest, 12L with activity], dyslipidemia, idiopathic pulmonary fibrosis, interstitial lung disease, HTN, pulmonary hypertension, GERD and other problems listed below who presented to the ED for evaluation secondary to SOB and exertional chest tightness. History obtained from patient and associated chart review. Patient seen at bedside with Dr. Doll. Patient was at [facility] office today over at [facility] for her Fasenra shot; however, the patient was referred here due to hypoxia. Notices that she is "going low" from the bed to the bathroom. Used her nebulizer this morning; has been using her nebulizer more frequently - multiple times a day. Feels she "cannot do anything" because of her respiratory disease. She was previously evaluated by [facility] Transplant team in March, but was denied the opportunity of a lung transplant secondary to her body habitus and comorbidities. Patient is taking 20mg oral prednisone daily and has been doing so since around May or June - she cannot remember exactly. Oxygen saturation on monitor dropped to 88% during our conversation. Her breathing has significantly worsened over the past 2 weeks. She has been producing clear, somewhat yellow nasal drainage. States her chest feels "tight" with movement and her HR goes up rather high with movement. She denies any lightheadedness or dizziness with movement. Patient expresses higher value over quality of life versus quantity of life. Patient has been seeing the [facility] team. Patient expresses extreme frustration and sadness with having to work so hard to breath. She does see a counselor, which she reports has helped her mental health. Patient would not want to be intubated, but is agreeable to CPR. Admission Exam Per Admitting Provider Vitals signs as noted above General Appearance:Moderately built and nourished, mild distress Head: normocephalic, Atraumatic Eyes: normal inspection, EOMI Neck: supple, Trachea midline Respiratory/Chest: Decreased breath sounds, B/L basal crackles, no wheezes,+ accessory muscle use Cardiovascular: S1, S2, No murmur Abdomen/GI:Soft, Non tender, Bowel sounds present Extremities/Musculoskeletal:normal inspection, no edema Neurologic/Psych:AAOX3, grossly no focal neurological deficits Skin: normal color, warm Principal Diagnosis Acute on chronic respiratory failure with hypoxia in the setting of ILD/pulmonary fibrosis and severe pulmonary hypertension Discharge Exam General: Sitting comfortably in bed, not in acute distress, on HFNC at 15 L HEENT: EOMI, MELVIN, MMM Chest: Bilateral crackles CVS: Regular rate and rhythm, normal heart sounds Abdomen: Soft, non tender, not distended, normal bowel sounds Neuro: Awake, alert, oriented, conversing well, non focal Extremities: No edema Discharge Data Allergies Allergy/AdvReac Type Severity Reaction Status Date / Time lisinopril Allergy Cough Verified 10/28/22 00:10 Consultations 09/26/23 15:33 ED Decision to Admit Stat 09/26/23 16:53 Consult Palliative Care Routine 09/26/23 17:22 Consult Pulmonology Routine Ordered Studies 09/26/23 14:28 CT angio chest PE protocol Stat Hospital Course (1) Acute on chronic respiratory failure with hypoxia: (2) Interstitial lung disease: (3) Pulmonary fibrosis: (4) Elevated troponin: (5) Pulmonary hypertension: Plan 73 year old female with history of DM type II, ILD/pulmonary fibrosis with chronic hypoxic respiratory failure on 14L/min, severe pulmonary HTN, etc who presented to the ED for evaluation secondary to SOB and exertional chest tightness and was found to have acute on chronic respiratory failure with hypoxia. She was tachycardic and tachypneic on presentation, with oxygen saturation of 68% on arrival which improved to 94% w/ 15L via non-rebreather and subsequently required HFNC. CTA chest 09/25 1. There is no evidence of pulmonary embolus in the main, lobar, or segmental pulmonary arteries. 2. Cardiomegaly with evidence of pulmonary artery hypertension. 3. Again seen are findings of chronic interstitial/fibrotic lung disease. 4. No superimposed air space consolidation or pleural effusion is identified. 5. Mildly enlarged mediastinal and hilar lymph nodes are similar to previous and likely related to chronic lung disease. 6. Cholelithiasis. Echo 09/25- LVEF >70% with no RWMA, PASP 66, mildly reduced RVSF Acute on Chronic Respiratory Failure with Hypoxia in setting of ILD/pulmonary fibrosis and severe pulmonary HTN- follows w/ [facility] [Dr. Finch]. Uses 14 L oxygen at baseline, needed HFNC at presentation. CTA chest and echo reviewed. RVP negative. BNP in 200s. Afebrile. Pulm mabel,Appreciate recommendation. Patient will be discharged on prednisone taper, utilize PPI for the duration of steroid use. Guarded prognosis, continue with Bactrim Saturday as she is on long-term steroid. s/p doxy course. Palliative evaled, appreciate recs. Continue pirfenidone, IS, Flutter valve. Continue HFNC- wean down as tolerated Dc to home w/ hospice. Elevated Troponin- trop trend mild and flat. Demand ischemia from above HTN- continue [employer] losartan. BP stable DM Type II with labile blood sugar on steroids- Glycemic pharmacist managing insulin. A1c 7.8 Leucocytosis- likely due to high dose steroids. Monitor. On bactrim. DVT ppx- sc lovenox DNR/DNI Patient is being discharged to home with hospice. Home Health Attestation I certify that this patient is under my care and that I, or a physicians nurse practitioner physician assistant working with me, had a face to-face encounter that meets the home health [id number] encounter requirements with this patient. The encounter with the patient was in whole, or in part, for the following medical condition, which is the primary reason for home health care (list medical condition): I certify that, based on my findings, the following services are medically necessary home health services: My clinical findings support the need for the above services because: Further, I certify that my clinical findings support that this patient is homebound (i.e. absences from home require considerable and taxing effort and are for medical reasons or muslim services or infrequently or of short duration when for other reasons) because: Certification for Home Health Services: Based on the above findings, I certify that this patient is confined to the home and needs intermittent snf care, physical therapy and/or speech therapy or continues to need occupational therapy. The patient is under my care, and I have initiated the establishment of the plan of care. This patient will be followed by a physician who will periodically review the plan of care. Total Time Total Time Spent Total Time Spent (In Minutes): 45 Discharge Plan Discharge Items Patient Disposition: Hospice - Home Reason For Visit: ACUTE ON CHRONIC RESPIRATORY FAILURE W/ HYPOXIA Discharge Diagnosis: Acute on chronic respiratory failure with hypoxia in the setting of ILD/pulmonary fibrosis and severe pulmonary hypertension Activity: Resume your previous activity Non-emergency contact: Primary Care Provider Call non-emergency contact if: you have any medication questions Follow-up/Referrals: Rizwana Antunez MD [Primary Care Provider] - Diet: Carb Consistent or DM2 and Heart Healthy Addtl Attending Provider Instructions: You are being discharged to home with hospice. You will be discharged on comfort care medication for few days until hospice care takes over. Once hospice care takes about, your medications will be managed per them. Pending Studies at Discharge: No Stand-Alone Forms: [facility] Medications and DC Order Prescriptions: New sulfamethoxazole-trimethoprim [Bactrim DS] 800-160 mg Tablet 1 tab PO MoWeFr@[id number] Qty: 14 0RF prednisone 10 mg tablet 10 mg PO UD Qty: 74 0RF Rx Instructions: 4 tab daily x 1 week, 3 tab daily x 1 week, 2 tab daily x 1 week, 1 tab daily x 1 week, 1/2 tab daily x 1 week then stop. pantoprazole 40 mg Tablet,Delayed Release (Dr/Ec) 40 mg PO QAM Qty: 30 0RF morphine concentrate 100 mg/5 mL (20 mg/mL) solution 5 mg PO Q4H PRN (Reason: air hunger or pain) Qty: 15 0RF lorazepam [Ativan] 0.5 mg tablet 0.5 mg PO Q4H PRN (Reason: agitation/anxiety) Qty: 18 0RF Continued Fasenra 30 mg/mL syringe 30 mg SUBCUT UD Rx Instructions: Performed every 8 weeks. metformin 500 mg tablet extended release 24 hr 1,000 mg PO QPM Patient Comments: on HOLD because of renal function pirfenidone 801 mg tablet 801 mg PO TID Rx Instructions: Takes in the morning, at noon and before bedtime. ipratropium-albuterol 0.5 mg-3 mg(2.5 mg base)/3 mL solution for nebulization 3 ml NEB Q6 PRN (Reason: shortness of breath or wheezing) losartan 25 mg tablet 25 mg PO DAILY Jardiance 10 mg tablet 10 mg PO DAILY atorvastatin 10 mg tablet 10 mg PO DAILY Breztri Aerosphere 160-9-4.8 mcg/actuation HFA aerosol inhaler 2 inh INHALATION BID loratadine 10 mg Tablet 10 mg PO DAILY PRN (Reason: Allergy Symptoms) Discontinued omeprazole 20 mg capsule,delayed release(DR/EC) 20 mg PO QAM prednisone 20 mg tablet 20 mg PO DAILY azithromycin 250 mg tablet 250 mg PO [id number] Discharge Orders: Discharge Order (Routine); Ordered 10/08/23 Ordered By: Andrzej Zamudio Admission Data Admit Date/Time: 09/26/23 15:57 Attending Provider: Andrzej Zamudio Admit Provider: Robin Doll Primary Care Provider: Rizwana Antunez Other Providers: Robin Doll; Nadege Babcock Vy[place]lav
[2023-10-09] MEDS ORDERED: LANTUS PER UNIT CHARGE SC SCH (09:00)
== END 2023-10-08 18:15 | disposition hospice, home (50) | DRG 196 ==
LOC: ED 14:19 → SUATTDRO 15:57 → 2S 15:57